=== PATIENT | male | born 1960 | race Caucasian/White ===

== ENCOUNTER 2017-02-05 09:15 | Inpatient (IN) | payer OTHER ==
[~2017-02-05] VITALS: Ht 175.3 cm; Wt 67.6 kg
[2017-02-05 18:52] VITALS: PULSE 70
[2017-02-05 20:04] VITALS: BP 132/74; RESP 17
[2017-02-05 20:10] VITALS: PULSE 73
--- NOTE | 2017-02-05 20:29 | HP ---
Date/Time of Note Date/Time of Note DATE: 02/05/17 TIME: 19:33 Assessment/Plan VTE Prophylaxis VTE Prophylaxis Intervention: contraindicated Assessment/Plan Assessment/Plan - Hepatorenal syndrome -Per nephrology and GI -Alcoholic liver Cirrhosis with transaminitis -GI consult-Dr. Zelaya notified - Hyponatremia - 1/2 NS AT 50 cc per Hr - Hyperkalemia - sp Kayexalate at [place] - Stat K level- fu - am Labs -Bilateral lower extremity pain -We will do a Doppler ultrasound to rule out any DVTs, results to follow-up - Jaundice - Acute Renal Failure-monitor labs - nephrology consult-Dr. Hilton Robles notified - Hemophilia - Thrombocytopenia-no obvious bleeding noted - Hematology consult- will call tomorrow -We will get PT PTT INR -Coagulopathy secondary to thrombocytopenia - Hypertension - Ascites- tapped almost 4 weeks ago , 1.6 L removed per patient. -Discussed with Dr. Robles, plan for ultrasound-guided paracentesis tomorrow -pain meds -Cachexia -Dietary consult Patient is not allergic to Spironolactone, he stated that his doctor does want him to take this medication so he is not allergic to any medicine. Further recommendations based on patient's clinical course . Plan of care Dw Dr James/staff, patient. Total time spent on history taking, chart review, talking to the patient, discussing with staff, going over orders, getting consult as well as a 45 minutes HPI/ROS Admit Date/Time Admit Date/Time February 05, 2017 at 18:37 Hx of Present Illness This is a 56-year-old male patient who was transferred from [place] with 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 Patient has a history of alcoholic liver cirrhosis, substance abuse, former smoker, alcoholism, hemophilia, apicitis was admitted to [facility] under Dr. James. Patient is admitted with hepatorenal syndrome-nephrology and GI consults are done. We will do the med recon once the medication information is entered. During physical exam patient was standing next to the bed, poor balance and patient was instructed to go back to bed no fall or injury noted. We will get physical evaluation for the patient to be on the safe side patient denies any chest pain, shortness of breath, dizziness, palpitations, headache, fever, chills. Complaint of abdominal pain, nausea, denies any diarrhea. Denies any bleeding from any orifices. During admission patient has hyponatremia, hyperkalemia-we will dose stat labs, IV fluids as necessary. Patient denies any trauma, traveling outside the country, contact with sick. Patient is cooperative for exam. ROS Eyes: no complaints ENT: no complaints Respiratory: no complaints Cardiovascular: no complaints Gastrointestinal: diarrhea, nausea, pain Genitourinary: no complaints Musculoskeletal: other (Bilateral lower extremity weakness) Skin: bruising Neurologic: no complaints Lymphatic: no complaints Psychological: nl mood/affect Immunologic: no complaints PMH/Family/Social Past Medical History Liver cirrhosis, hypertension, jaundice, hemophilia, ascites, migraine headaches , severe alcohol use disorder Medical History: hypertension, renal disease, other Past Surgical History Past Surgical Hx: appendectomy Family History Significant Family History: diabetes, other (Alcoholism) Social History Alcohol Use: other (Alcoholism) Smoking Status: Former smoker Drug Use: other (History of substance use) Exam/Review of Systems Vital Signs Vitals Vital Signs Date Time Temp Pulse Resp B/P Pulse Ox O2 Delivery O2 Flow Rate FiO2 02/05/17 18:52 70 Exam Constitutional: alert, oriented, well developed Psych: no complaints Head: normocephalic Eyes: icteric ENMT: nl external ears & nose Neck: non-tender Respiratory: clear to auscultation Cardiovascular: nl pulses Gastrointestinal: distended, other (Per patient he has apicitis, 1.6 L removed 4 weeks ago), soft Musculoskeletal: nl extremities to inspection Extremities: normal pulses Neurological: nl mental status, nl speech Skin: other (Bruises noted on upper and lower bilateral extremities) Lymph: nontender DAFEN LECHUGA February 05, 2017 19:49
[2017-02-05 21:22] LABS: INR 2.72; PROTIME 29.2 Sec (12.2-14.2); PT RATIO 2.3
[2017-02-05 21:23] LABS: PARTIAL THROMBOPLASTIN TIME 50.3 Sec (25.0-35.0)
--- NOTE | 2017-02-05 21:32 | RADRPT ---
PROCEDURE: US DVT. CLINICAL INDICATION: Upper extremity pain. TECHNIQUE: Multiple longitudinal and transverse images of the the bilateral upper extremity veins were obtained with guevara scale and color Doppler imaging. 2D grayscale measurements with compression , color Doppler flow, and augmentation was performed. COMPARISON: No prior studies are available for comparison. FINDINGS: The bilateral jugular vein, subclavian vein, axillary vein, and brachial veins are all normally comp ressible throughout. Color flow demonstrates normal filling of the vessel. Normal waveforms are vi sualized and there is normal response to augmentation. The left cephalic, bilateral basilic and rad ial veins are visualized and appear patent. IMPRESSION: 1. No evidence of a deep vein thrombosis involving either upper extremity. RPTAT:AACC Physician Claudia Date Time Electronically viewed and signed by Physician Claudia on 02/05/2017 21:32 /
--- NOTE | 2017-02-05 21:33 | RADRPT ---
PROCEDURE: US DVT. CLINICAL INDICATION: Bilateral lower extremity pain. TECHNIQUE: Multiple longitudinal and transverse images of the bilateral lower extremity veins were obtained with guevara scale and color Doppler imaging. 2D grayscale measurements with compression, co nani Doppler flow, and augmentation was performed. The calf veins were interrogated as well. COMPARISON: No prior studies are available for comparison. FINDINGS: The bilateral common femoral, superficial femoral and popliteal veins are normally compressible thro ughout. Color flow demonstrates normal filling of the vessel. Normal waveforms are visualized and there is normal response to augmentation. IMPRESSION: 1. No evidence of a deep vein thrombosis involving either lower extremity. RPTAT: AACC Physician Claudia Date Time Electronically viewed and signed by Physician Claudia on 02/05/2017 21:33 /
[2017-02-05] MEDS: SOD CHLORIDE 0.45% 1,000 ML IV SCH (23:00)
--- NOTE | 2017-02-05 23:02 | RADRPT ---
PROCEDURE: Renal US. CLINICAL INDICATION: Flank pain. TECHNIQUE: Multiple sonographic images of the kidneys and urinary bladder were obtained. The imag es were reviewed on a PACS workstation. COMPARISON: No prior studies are available for comparison. FINDINGS: The right kidney measures 10.5 x 5.8 x 6.1 cm. The left kidney measures 11.8 x 5.7 x 4.7 cm. There is no renal mass. There is no hydronephrosis. There is no renal calculus. Renal parenchymal thickness is normal bilaterally. Echogenicity is normal bilaterally. The perirenal regions are normal with no fluid collection or mass. The urinary bladder is unremarkable. There is mild ascites. IMPRESSION: 1. Unremarkable renal ultrasound. 2. Mild ascites. RPTAT: QQ .Maurisio Nieves MD, Date Time Electronically viewed and signed by .Maurisio Nieves MD, on 02/05/2017 23:01 .R/
[2017-02-06] VITALS (12 sets, daily range): BP systolic 98–134; BP diastolic 51–75; PULSE 75–97; RESP 16–18; Ht 175.3 cm; Wt 67.6 kg
[2017-02-06] MEDS ORDERED: LACTULOSE 30ML CUP PO PRN
[2017-02-06] MEDS: PIPER-TAZO 3.375 GM IV (PMX) 100 ML IVPB SCH ×4 (06:00→21:48)
[2017-02-06] MEDS: PANTOPRAZOLE (EC) 40 MG TAB PO SCH (06:34)
[2017-02-06] MEDS: FUROSEMIDE 20 MG TAB PO SCH (06:34)
[2017-02-06 08:06] LABS: CHOLESTEROL < 50 mg/dl (100-200)
[2017-02-06 08:28] LABS: HDL CHOLESTEROL 9 mg/dl (28-71); PHOSPHORUS 3.8 mg/dl (2.5-4.9); TRIGLYCERIDES 36 mg/dl (0-149)
[2017-02-06 08:38] LABS: IRON 123 ug/dl (35-150)
[2017-02-06 08:47] LABS: TOTAL IRON BINDING CAPACITY 133 ug/dl (241-421)
[2017-02-06] MEDS ORDERED: TRIMETHOPRIM/SULFAMETHOX (DS) TAB PO SCH (09:00)
[2017-02-06] MEDS: THIAMINE 100 MG TAB PO SCH (09:23)
[2017-02-06] MEDS: RIFAXIMIN 550 MG TAB PO SCH ×2 (09:23→21:48)
[2017-02-06] MEDS: MULTIVITAMINS THERAPEUTIC TAB PO SCH (09:23)
[2017-02-06] MEDS: FOLIC ACID 1 MG TAB PO SCH (09:23)
[2017-02-06 10:03] LABS: ALBUMIN 3.1 g/dl (3.3-4.9)
[2017-02-06 10:04] LABS: POTASSIUM 5.5 mmol/L (3.5-5.1)
[2017-02-06 10:06] LABS: ALBUMIN/GLOBULIN RATIO 0.55; BILIRUBIN,DIRECT 6.8 mg/dl (0.00-0.20); BILIRUBIN,INDIRECT 3.5 mg/dl (0-1.1); BILIRUBIN,TOTAL 10.3 mg/dl (0.2-1.3); CREATININE 1.42 mg/dl (0.61-1.24); TOTAL PROTEIN 8.7 g/dl (6.1-8.1)
[2017-02-06 10:07] LABS: CALCIUM 9.7 mg/dl (8.4-10.2)
[2017-02-06] MEDS: morphine 2 MG INJ IV PRN ×2 (11:45→21:48)
[2017-02-06 13:35] LABS: ADD SCAN DIFF NO
--- NOTE | 2017-02-06 13:41 | CONS ---
Date/Time of Note Date/Time of Note DATE: 02/06/17 TIME: 13:33 Assessment/Plan Assessment/Plan Chief Complaint/Hosp Course The patient is a 56-year-old male patient with a history of alcoholic liver cirrhosis, hemophilia, admitted with hepatorenal syndrome-nephrology. No active bleeding. Hematology consulted due to history of hemophilia and thrombocytopenia. # Thrombocytopenia, likely related to alcoholic liver cirrhosis. 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 - patient noted to have prolonged INR and PTT but also has liver disease - no evidence of bleeding at this time and no intervention required; patient states he has never required factor infusions, likely mild hemophilia - will obtain records from [facility] - will check Factor IX levels and mixing studies # Macrocytic anemia, MCV 101.6, Hgb 8.5 - labs pending from today - will check iron panel, ferritin, B12, folate, TSH, methylmalonic acid, homocysteine, LDH, retic count and haptoglobin (though likely low due to liver disease) Problems: Consultation Date/Type/Reason Admit Date/Time February 05, 2017 at 18:37 Date of Consultation: February 06, 2017 Type of Consultation: Hematology Reason for Consultation History of hemophilia, thrombocytopenia Hx of Present Illness 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 Patient has a history of alcoholic liver cirrhosis, substance abuse, former smoker, alcoholism, hemophilia. Patient is admitted with hepatorenal syndrome-nephrology. Denies any bleeding from any orifices. The patient states that he last drank 40 days ago, but prior to that, drank 8 40 ounce beers per day but was still functional. He has been known to have low blood counts due to cirrhosis but states that he was told his blood counts have improved. 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 He denies any bleeding other than requiring 4-6 hours to clot after cutting himself. He denies joint bleeding. He states that his mother had a bleeding tendency but was never diagnosed with a blood disorder as she was a "mess." The patient had an appendectomy 3.5 years ago without massive bleeding complications to his knowledge. He never had epistaxis except due to trauma while playing football. He has never received factor infusions. Eyes: no complaints ENT: no complaints Respiratory: no complaints Cardiovascular: no complaints Gastrointestinal: diarrhea, nausea, pain Genitourinary: no complaints Musculoskeletal: other (Bilateral lower extremity weakness) Skin: bruising Neurologic: no complaints Lymphatic: no complaints Psychological: no complaints Immunologic: no complaints Past Medical History Liver cirrhosis, hypertension, jaundice, hemophilia, ascites, migraine headaches , severe alcohol use disorder Medical History: hypertension, renal disease, other Past Surgical History Past Surgical Hx: appendectomy Family History Significant Family History: diabetes, other (Alcoholism) Social History Alcohol Use: other (Alcoholism) Smoking Status: Former smoker, smoked for 7 years x 2 ppd, quit in 1984 Drug Use: other (History of substance use, marijuana in past) Medical History: hypertension, renal disease, other Past Surgical History Past Surgical Hx: appendectomy Social History Alcohol Use: other (Alcoholism) Smoking Status: Former smoker Drug Use: other (History of substance use) Exam/Review of Systems Vital Signs Vitals Vital Signs Date Time Temp Pulse Resp B/P Pulse Ox O2 Delivery O2 Flow Rate FiO2 02/06/17 12:06 75 02/06/17 11:55 97.7 18 122/75 100 Intake and Output 02/05/17 02/05/17 02/06/17 15:00 23:00 07:00 Intake Total 350 ml Balance 350 ml Exam Constitutional: alert, oriented, well developed, jaunduced Head: normocephalic Eyes: icteric ENMT: nl external ears & nose Neck: non-tender Respiratory: clear to auscultation Cardiovascular: nl pulses Gastrointestinal: distended, ascites Musculoskeletal: nl extremities to inspection Extremities: normal pulses, bruises Neurological: nl mental status, nl speech Results Result Diagram: 02/06/17 0500 Results 24 hrs Laboratory Tests Test 02/05/17 21:00 02/06/17 05:00 02/06/17 05:46 02/06/17 06:54 Prothrombin Time 29.2 H Prothrombin Time Ratio 2.3 INR International Normalized Ratio 2.72 Activated Partial Thromboplast Time 50.3 H Ammonia 36 H Sodium Level 129 L Potassium Level 5.5 H Chloride Level 103 Carbon Dioxide Level 14 L Anion Gap 18 H Blood Urea Nitrogen 29 H Creatinine 1.42 H Glucose Level 88 Calcium Level 9.7 Total Bilirubin 10.3 H Direct Bilirubin 6.80 H Indirect Bilirubin 3.5 H Aspartate Amino Transf (AST/SGOT) 120 H Alanine Aminotransferase (ALT/SGPT) 58 Alkaline Phosphatase 231 H Total Protein 8.7 H Albumin 3.1 L Globulin 5.60 H Albumin/Globulin Ratio 0.55 Iron Level 123 Total Iron Binding Capacity 133 L Percent Iron Saturation 92 H Hemoglobin A1c Phosphorus Level 3.8 Magnesium Level 2.0 Triglycerides Level 36 Cholesterol Level < 50 L LDL Cholesterol, Calculated HDL Cholesterol 9 L Cholesterol/HDL Ratio Lipase 644 H Medications Medications Current Medications Sodium Chloride 1,000 ml @ 50 mls/hr Q20H IV Last administered on 02/05/17 23 :00; Admin Dose 50 MLS/HR; Start 02/05/17 at 20:00 Piperacillin Sod/ Tazobactam Sod (Zosyn 3.375gm/ 100 ml (Pmx)) 100 ml @ 200 mls /hr Q8 IVPB Last administered on 02/06/17 00:00; Admin Dose 200 MLS/HR; Start 02/05/17 at 22:00 Multivitamins Therapeutic (Theragran) 1 tab DAILY PO Last administered on 09:23; Admin Dose 1 TAB; Start 02/06/17 at 09:00 Thiamine HCl (Vitamin B1) 100 mg DAILY PO Last administered on 02/06/17 09:23 ; Admin Dose 100 MG; Start 02/06/17 at 09:00 Furosemide (Lasix) 10 mg DAILY@06 PO Last administered on 02/06/17 06:34; Admin Dose 10 MG; Start 02/06/17 at 06:00 Lactulose (Enulose) 20 gm Q4 PRN PO CONSTIPATION; Start 02/06/17 at 00:00 Pantoprazole (Protonix Tab) 40 mg DAILY@06 PO Last administered on 02/06/17 06 :34; Admin Dose 40 MG; Start 02/06/17 at 06:00 Rifaximin (Xifaxan) 550 mg BID PO Last administered on 02/06/17 09:23; Admin Dose 550 MG; Start 02/06/17 at 09:00 Trimethoprim/ Sulfamethoxazole (Bactrim (Ds)) 1 tab Q12 PO Last administered on 02/06/17 09:23; Admin Dose 1 TAB; Start 02/06/17 at 09:00 Folic Acid (Folic Acid) 1 mg DAILY PO Last administered on 02/06/17 09:23; Admin Dose 1 MG; Start 02/06/17 at 09:00 Aripiprazole (Abilify) 1 mg HS PO ; Start 02/06/17 at 21:00 Morphine Sulfate (morphine) 2 mg Q3H PRN IV PAIN Last administered on 11:45; Admin Dose 2 MG; Start 02/06/17 at 01:00 ABRAM HINDS MD February 06, 2017 13:41
[2017-02-06 13:45] LABS: ABNORMAL IP MESSAGE 1; HEMATOCRIT 22.4 % (42.0-52.0); HEMOGLOBIN 7.5 g/dl (14.0-18.0); MEAN CORPUSCULAR HEMOGLOBIN 34.1 pg (29.0-33.0); MEAN CORPUSCULAR HGB CONC 33.5 g/dl (32.0-37.0); MEAN CORPUSCULAR VOLUME 101.8 fl (82.0-101.0); MEAN PLATELET VOLUME 11.6 fl (7.4-10.4); PLATELET COUNT 64 10^3/UL (140-415); RED CELL DISTRIBUTION WIDTH 15.3 % (11.5-14.5); WHITE BLOOD COUNT 10.1 10^3/ul (4.8-10.8)
[2017-02-06 13:52] LABS: ALBUMIN 3.3 g/dl (3.3-4.9)
[2017-02-06 13:55] LABS: BILIRUBIN,DIRECT 7.3 mg/dl (0.00-0.20); BILIRUBIN,INDIRECT 3.7 mg/dl (0-1.1); TOTAL PROTEIN 8.8 g/dl (6.1-8.1)
[2017-02-06 13:58] LABS: LACTIC ACID 2.1 mmol/L (0.5-2.2)
[2017-02-06 14:16] LABS: IRON 115 ug/dl (35-150)
[2017-02-06 14:25] LABS: EOSINOPHILS # 0.1 10^3/ul (0.0-0.5); LYMPHOCYTES # 0.5 10^3/ul (0.8-2.9); NEUTROPHIL # 8.5 10^3/ul (1.6-7.5); PLATELET ESTIMATE PLT APPEAR DECREASED
[2017-02-06 14:26] LABS: TOTAL IRON BINDING CAPACITY 138 ug/dl (241-421)
[2017-02-06 14:54] LABS: PHOSPHORUS 3.7 mg/dl (2.5-4.9); URIC ACID 4.8 mg/dl (3.1-7.9)
[2017-02-06 14:55] LABS: MAGNESIUM 1.9 mg/dl (1.7-2.5)
[2017-02-06] MEDS ORDERED: NA POLYST SULFON 15 GM/60 ML BTL PO ONE (15:30)
[2017-02-06] MEDS: SOD CHLORIDE 0.45% 1,000 ML IV SCH (16:00)
--- NOTE | 2017-02-06 17:41 | CONS ---
DATE OF ADMISSION: 02/05/2017 DATE OF CONSULTATION: 02/06/2017 TYPE OF CONSULTATION: Nephrology. REFERRING PHYSICIAN: Dr. Grant REASON FOR CONSULTATION: Hyponatremia, sodium of 129, severe metabolic acidosis with a bicarbonate of 14, acute kidney injury, creatinine 1.42. HISTORY OF PRESENT ILLNESS: This is a 56-year-old male with a past medical history of appendectomy, history of alcoholic liver cirrhosis, bilateral lower extremity neuropathy, history of coagulopathy and thrombocytopenia from liver cirrhosis. The patient presented with abdominal pain, distention a nd shortness of breath. He gives a history of ALLERGIES TO ____ LOSARTAN. He said his doctor's marino s not want him to take these medications and the patient was admitted by Dr. Grant and nephrology was consulted for acute kidney injury with a creatinine of 1.42, sodium of 129. The patient also h ad a mild transaminitis with a total bilirubin of 10.3. Oncology has been consulted for thrombocytop enia and other abnormalities. currently his potassium was 5.5, bicarbonate was 14, today creatinine 1.42 and renal has been consulted for further workup. REVIEW OF SYSTEMS: As per HPI. PAST MEDICAL HISTORY: 1. History of liver cirrhosis, thrombocytopenia and coagulopathy. 2. History of recurrent symptomatic ascites. The last paracentesis was done approximately 4 weeks ago 1.6 liter of fluid was removed as per the patient. PAST SURGICAL HISTORY: History of appendectomy in 2013. SOCIAL HISTORY: No smoking, alcohol or recreational drug use. FAMILY HISTORY: Noncontributory. PHYSICAL EXAMINATION: VITAL SIGNS: Temperature 97.7, heart rate 83, respiration 18, blood pressure 122/75, saturation 100 % on room air. GENERAL: Awake, alert, in moderate distress due to the pain and abdominal distention. HEENT: Mild yellow sclerae. Pupils equal, round, reactive to light and accommodation. Extraocular muscles are intact. NECK: Supple, no JVD, no lymphadenopathy. LUNGS: Decreased breath sounds at both lung bases. HEART: S1, S2, tachycardia, no murmur. ABDOMEN: Soft, distended. Ascites present. Fluid was present. EXTREMITIES: 1 to 2+ pitting edema. NEUROLOGICAL: Nonfocal, intact. PSYCHIATRIC: Appropriate affect and mood. LABORATORY DATA/DIAGNOSTIC IMAGIN. Sodium 129, potassium 5.5, chloride 103, bicarbonate 14, BUN 29, creatinine 1.4, glucose 88, suraj cium 9.7, total bilirubin 10.3, slightly elevated liver enzymes, albumin 3.1. PT 29.2, INR 2.7, PTT 50.3. 2. WBC 10.1, hemoglobin 7.5, platelet count 64. 3. Renal ultrasound has been done which is unremarkable, mild ascites. Kidney size is around 10.5 to 11.8. IMPRESSION: This is a 56-year-old male who presented with symptomatic ascites, hyponatremia and dirk al has been consulted. 1. Hyponatremia likely secondary to liver cirrhosis. 2. Rule out hepatorenal syndrome versus prerenal azotemia. 3. Acute kidney injury, likely secondary to prerenal azotemia in the setting of decompensated liver cirrhosis. 4. 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 5. History of recurrent ascites, status post last paracentesis done 3 weeks ago, 1.6 liters of flui d was removed. 6. Acute hyperkalemia, possibly secondary to Bactrim. Thank you, Dr. Grant, for this consultation. [facility] PLAN: 1. He will likely need a paracentesis, but the renal ultrasound shows only mild ascites, so I will continue to monitor the patient. 2. No spironolactone due to his hyperkalemia. Potassium is 5.5, I will start the patient on a ____ for his metabolic acidosis and also start him on Lasix 40 mg p.o. daily. 3. Discontinue the Bactrim due to the acute hyperkalemia and acute kidney injury. 4. Renal ultrasound shows normal size kidneys consistent with normal echogenicity, no hydronephrosi s, but it only showed mild ascites. Thank you, Dr. Grant, for this consultation. I will continue to follow this patient along with y amanda. Dictated By: ELLIOT PARRA MD, KP/MANJINDER Conf#: [id number] DID#: [id number] CC: CARL GRANT MD;*EndCC*
--- NOTE | 2017-02-06 20:45 | CONS ---
DATE OF ADMISSION: 02/05/2017 DATE OF CONSULTATION: TYPE OF CONSULTATION: Gastroenterology. REFERRING PHYSICIAN: Dr. Carl Grant REASON FOR CONSULTATION: Jaundice. HISTORY OF PRESENT ILLNESS: The patient is a 56-year-old male with cirrhosis of liver from alcohol abuse who went to the emergency room at [place] complaining of vomiting and nausea and also weakness and dizziness. The patient was evaluated at [facility], found to have alcoholic cirrhosis with bilirubi n of 10, and hepatorenal syndrome and, for the insurance purpose, was transferred to this facility f or further management. The patient has no abdominal pain now. No nausea, no vomiting. He complain s of pain in the left arm and wants more medication. PAST MEDICAL HISTORY: History of hypertension, migraine, renal calculus, alcoholic cirrhosis, throm bocytopenia, cholelithiasis, jaundice, polysubstance dependence in remission, history of smoking als o. Spontaneous bacterial peritonitis, hypertension. PHYSICAL EXAMINATION: GENERAL: Alert, awake. He has ascites. CARDIOVASCULAR: No murmur, gallop, or click. LUNGS: Clear. ABDOMEN: Ascites. EXTREMITIES: No edema. CENTRAL NERVOUS SYSTEM: Grossly within normal limits. LABORATORY DATA: All of his labs reviewed. His bilirubin is high 11. Hematocrit is 22.4, platelet count is 64. INR is very high, 2.72. Ammonia was mildly elevated to 52. IMPRESSION: 1. Decompensated cirrhosis of liver. 2. Alcoholic cirrhosis. 3. Ascites. 4. Renal failure, rule out hepatorenal. 5. History of polysubstance dependence in the past, in admission. 6. Anemia. 7. Thrombocytopenia. 8. Cholelithiasis. 9. Coagulopathy. PLAN: To get an ultrasound of the abdomen to make sure there is no dilatation of the biliary system . The patient may need blood transfusion. We will monitor him for GI bleeding. Vitamin K to corre ct the coagulopathy. His prognosis remains guarded. The patient should be evaluated for liver prather splant at tertiary care facility. Dictated By: IGNACIA NGUYEN/NTS Conf#: [id number] DID#: [id number] CC: CARL GRANT MD; IGNACIA HERR MD;*EndCC*
[2017-02-06] MEDS: ARIPIPRAZOLE 2 MG TAB PO SCH (21:00)
[2017-02-06] MEDS: CITRIC ACID/SODIUM CITRATE 15 ML CUP PO SCH (21:48)
[2017-02-07] VITALS (12 sets, daily range): BP systolic 96–113; BP diastolic 57–65; PULSE 75–90; RESP 18–19
[2017-02-07 03:34] LABS: PROTEIN/CREAT RATIO 0.21 RATIO
[2017-02-07] MEDS: PIPER-TAZO 3.375 GM IV (PMX) 100 ML IVPB SCH ×3 (06:12→22:00)
[2017-02-07] MEDS: FUROSEMIDE 20 MG TAB PO SCH (06:13)
[2017-02-07] MEDS: PANTOPRAZOLE (EC) 40 MG TAB PO SCH (06:13)
[2017-02-07] MEDS: SOD CHLORIDE 0.45% 1,000 ML IV SCH (06:14)
[2017-02-07 08:05] LABS: ADD SCAN DIFF NO
[2017-02-07 08:10] LABS: HAAIG REFLEX REFLEX FILED
[2017-02-07 08:20] LABS: RETICULOCYTE COUNT % 5.1 % (0.5-1.5)
[2017-02-07 08:37] LABS: PLATELET COUNT 53 10^3/UL (140-415)
[2017-02-07 08:39] LABS: IRON 109 ug/dl (35-150)
[2017-02-07 08:40] LABS: LACTATE DEHYDROGENASE 668 IU/L (313-618)
[2017-02-07 08:46] LABS: POTASSIUM 4.2 mmol/L (3.5-5.1)
[2017-02-07 08:48] LABS: TOTAL IRON BINDING CAPACITY 125 ug/dl (241-421)
[2017-02-07 08:49] LABS: CALCIUM 8.7 mg/dl (8.4-10.2); CREATININE 1.36 mg/dl (0.61-1.24)
[2017-02-07 08:50] LABS: INR 3.75; PROTIME 37.7 Sec (12.2-14.2); PT RATIO 2.9
[2017-02-07 08:51] LABS: PARTIAL THROMBOPLASTIN TIME 53.4 Sec (25.0-35.0); THROMBIN TIME 22.2 SEC (13.8-19.1)
[2017-02-07 08:54] LABS: D-DIMER 3528.13 ng/ml (<460)
[2017-02-07] MEDS: FOLIC ACID 1 MG TAB PO SCH (09:00)
[2017-02-07] MEDS: THIAMINE 100 MG TAB PO SCH (09:00)
[2017-02-07] MEDS: CITRIC ACID/SODIUM CITRATE 15 ML CUP PO SCH ×3 (09:00→21:29)
[2017-02-07] MEDS: MULTIVITAMINS THERAPEUTIC TAB PO SCH (09:00)
[2017-02-07] MEDS: RIFAXIMIN 550 MG TAB PO SCH ×2 (09:00→21:29)
--- NOTE | 2017-02-07 09:26 | RADRPT ---
PROCEDURE: Abdominal Ultrasound (right upper quadrant). CLINICAL INDICATION: Choledocholithiasis. TECHNIQUE: Multiple real-time longitudinal and transverse images of the right upper quadrant of th e abdomen were acquired utilizing a curved array transducer. Images were reviewed on a high-resoluti on PACS workstation. COMPARISON: None FINDINGS: The liver is heterogeneous in echotexture with suggestion of liver surface nodularity. No focal ma sses are identified. There is mild extrahepatic ductal dilatation. The common bile duct measures 6 .5 mm in diameter. Gallstones are identified within the distended gallbladder. There is mild gallbl adder wall thickening. The visualized portions of the pancreas are unremarkable with obscuration of the tail of the pancrea s. There is small volume ascites. There is no evidence of right hydronephrosis or renal calcification. The right kidney measures 11.8 cm in length. The visualized portions of the aorta and inferior vena cava are within normal limits. IMPRESSION: 1. Coarsened hepatic echotexture and suggested liver surface nodularity. Recommend correlation with hepatic cirrhosis. 2. Gallstones within the distended gallbladder and mild gallbladder wall thickening. 3. Mild common bile duct dilatation. Recommend correlation with serum bilirubin. Consider ERCP or MRCP as clinically indicated. RPTAT: KK .Ed Suresh MD, Date Time Electronically viewed and signed by .Ed Suresh MD, MD on 02/07/2017 09:25 .B/
[2017-02-07 09:29] LABS: RED BLOOD COUNT 1.91 10^6/ul (4.70-6.10); WHITE BLOOD COUNT 9.3 10^3/ul (4.8-10.8)
[2017-02-07 09:30] LABS: HEMATOCRIT 18.9 % (42.0-52.0); HEMOGLOBIN 6.5 g/dl (14.0-18.0)
[2017-02-07 09:31] LABS: MEAN CORPUSCULAR HGB CONC 34.4 g/dl (32.0-37.0); MEAN PLATELET VOLUME 11.3 fl (7.4-10.4); PLATELET COUNT 50 10^3/UL (140-440); RED CELL DISTRIBUTION WIDTH 14.6 % (11.5-14.5)
[2017-02-07 09:32] LABS: HEPATITIS B CORE ANTIBODY NEGATIVE (NEGATIVE)
[2017-02-07 09:48] LABS: FOLATE 15.6 ng/ml (2.8-20.0)
[2017-02-07 10:39] LABS: ADD SCAN DIFF NO
--- NOTE | 2017-02-07 10:59 | CONS ---
Date/Time of Note Date/Time of Note DATE: 02/07/17 TIME: 10:58 Assessment/Plan Assessment/Plan Chief Complaint/Hosp Course The patient is a 56-year-old male patient with a history of alcoholic liver cirrhosis, hemophilia, admitted with hepatorenal syndrome-nephrology. No active bleeding. Hematology consulted due to history of hemophilia and thrombocytopenia. # Thrombocytopenia, likely related to alcoholic liver cirrhosis and possible HIV infection - platelet count 79 at [facility], today 50K. Continue to monitor, no evidence of bleeding - Transfuse < 10, < 50 if bleeding, otherwise monitor - HIV screen positive, patient denies as states that he was tested 30 days ago and was negative, will repeat HIV screen and HIV RNA and consider ID consult if repeat test is positive - Hepatitis panel negative, unlikely DIC as prolongation of caogs and low fibrinogen likely related to liver disease. No need to give cryoprecipitate unless patient bleeding. - Abdominal US showed 1. Coarsened hepatic echotexture and suggested liver surface nodularity and mild common bile duct dilatation. 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 - patient noted to have prolonged INR and PTT but also has liver disease - no evidence of bleeding at this time and no intervention required; patient states he has never required factor infusions, likely mild hemophilia if at all , query diagnosis given even if found to have low Factor IX levels may be due to liver disease as made in the liver - will obtain records from [facility] - pending Factor IX level # Macrocytic anemia, MCV 101.6, Hgb 8.5 at [facility] - Hgb today 6.5 with MCV 99.0, will give 2 units pRBCs - iron panel with Fe 109, TIBC low at 125, %87, ferritin 1250 consistent with anemia of chronic inflammation, B12/folate/TSH SNL, pending methylmalonic acid and homocysteine; LDH elevated, retic count inappropriately low; pending haptoglobin (though likely low due to liver disease) Problems: Consultation Date/Type/Reason Admit Date/Time February 05, 2017 at 18:37 Initial Consult Date 02/06/17 Type of Consultation: Hematology 24 HR Interval Summary Free Text/Dictation Patient has no complaints today. Exam/Review of Systems Vital Signs Vitals Vital Signs Date Time Temp Pulse Resp B/P Pulse Ox O2 Delivery O2 Flow Rate FiO2 02/07/17 08:21 90 02/07/17 08:17 97.6 18 96/63 100 Intake and Output 02/06/17 02/06/17 02/07/17 15:00 23:00 07:00 Intake Total 1700 ml 1400 ml Balance 1700 ml 1400 ml Exam Constitutional: alert, oriented, well developed, jaunduced Head: normocephalic Eyes: icteric ENMT: nl external ears & nose Neck: non-tender Respiratory: clear to auscultation Cardiovascular: nl pulses Gastrointestinal: distended, ascites Musculoskeletal: nl extremities to inspection Extremities: normal pulses, bruises Neurological: nl mental status, nl speech Results Result Diagram: 02/07/17 0703 02/07/17 0703 Results 24 hrs Laboratory Tests Test 02/06/17 13:09 02/07/17 03:10 02/07/17 07:03 White Blood Count 10.1 9.3 Red Blood Count 2.20 L 1.91 L Hemoglobin 7.5 L 6.5 *L Hematocrit 22.4 L 18.9 L Mean Corpuscular Volume 101.8 H 99.0 Mean Corpuscular Hemoglobin 34.1 H 34.0 H Mean Corpuscular Hemoglobin Concent 33.5 34.4 Red Cell Distribution Width 15.3 H 14.6 H Platelet Count 64 L 53 L Mean Platelet Volume 11.6 H 11.3 H Neutrophils % 84.0 H Lymphocytes % 5.0 L Monocytes % 10.0 Eosinophils % 1.0 Neutrophils # 8.5 H Lymphocytes # 0.5 L Monocytes # 1.0 H Eosinophils # 0.1 Platelet Estimate PLT APPEAR DECREASED Clumped Platelets Lactic Acid Level 2.1 Uric Acid 4.8 Phosphorus Level 3.7 Magnesium Level 1.9 Iron Level 115 109 Total Iron Binding Capacity 138 L 125 L Percent Iron Saturation 83 H 87 H Total Bilirubin 11.0 H Direct Bilirubin 7.30 H Indirect Bilirubin 3.7 H Aspartate Amino Transf (AST/SGOT) 121 H Alanine Aminotransferase (ALT/SGPT) 63 Alkaline Phosphatase 217 H Ammonia 52 H Total Protein 8.8 H Albumin 3.3 Lipase 823 H Urine Eosinophils % 0.0 Urine Random Creatinine 68.41 Urine Random Sodium 55 Urine Protein/Creatinine Ratio 0.21 Urine Total Protein 15.0 H Absolute Reticulocyte Count 0.097 Percent Reticulocyte Count 5.1 H Prothrombin Time 37.7 #H Prothrombin Time Ratio 2.9 INR International Normalized Ratio 3.75 Activated Partial Thromboplast Time 56.0 H Mix PTT Normal Plasma Immediate Thrombin Time 22.2 H Fibrinogen 93.0 L Plasma Fibrin Degradation Products Pending D-Dimer 3528.13 H D-Dimer Comment Sodium Level 127 L Potassium Level 4.2 Chloride Level 97 Carbon Dioxide Level 17 L Anion Gap 17 H Blood Urea Nitrogen 27 H Creatinine 1.36 H Glucose Level 97 Calcium Level 8.7 Ferritin 1250.0 H Lactate Dehydrogenase 668 H Vitamin B12 Level > 1000 H Folate 15.6 Thyroid Stimulating Hormone (TSH) 3.840 Hepatitis B Surface Antigen NEGATIVE Hepatitis B Core Total Antibody NEGATIVE Hepatitis C Antibody NEGATIVE HIV (1&2) Antibody REACTIVE H Medications Medications Current Medications Sodium Chloride 1,000 ml @ 50 mls/hr Q20H IV Last administered on 02/07/17 06 :14; Admin Dose 50 MLS/HR; Start 02/05/17 at 20:00 Piperacillin Sod/ Tazobactam Sod (Zosyn 3.375gm/ 100 ml (Pmx)) 100 ml @ 200 mls /hr Q8 IVPB Last administered on 02/07/17 06:12; Admin Dose 200 MLS/HR; Start 02/05/17 at 22:00 Multivitamins Therapeutic (Theragran) 1 tab DAILY PO Last administered on 09:23; Admin Dose 1 TAB; Start 02/06/17 at 09:00 Thiamine HCl (Vitamin B1) 100 mg DAILY PO Last administered on 02/06/17 09:23 ; Admin Dose 100 MG; Start 02/06/17 at 09:00 Furosemide (Lasix) 10 mg DAILY@06 PO Last administered on 02/07/17 06:13; Admin Dose 10 MG; Start 02/06/17 at 06:00 Lactulose (Enulose) 20 gm Q4 PRN PO CONSTIPATION; Start 02/06/17 at 00:00 Pantoprazole (Protonix Tab) 40 mg DAILY@06 PO Last administered on 02/07/17 06 :13; Admin Dose 40 MG; Start 02/06/17 at 06:00 Rifaximin (Xifaxan) 550 mg BID PO Last administered on 02/06/17 21:48; Admin Dose 550 MG; Start 02/06/17 at 09:00 Folic Acid (Folic Acid) 1 mg DAILY PO Last administered on 02/06/17 09:23; Admin Dose 1 MG; Start 02/06/17 at 09:00 Aripiprazole (Abilify) 1 mg HS PO ; Start 02/06/17 at 21:00 Morphine Sulfate (morphine) 2 mg Q3H PRN IV PAIN Last administered on 21:48; Admin Dose 2 MG; Start 02/06/17 at 01:00 Citric Acid/ Sodium Citrate (Bicitra) 30 ml TID PO Last administered on 21:48; Admin Dose 30 ML; Start 02/06/17 at 21:00 TOABRAM MD February 07, 2017 10:59
[2017-02-07 11:01] LABS: BASOPHIL # 0.1 10^3/ul (0.0-0.1); EOSINOPHILS # 0.2 10^3/ul (0.0-0.5); LYMPHOCYTES # 1.2 10^3/ul (0.8-2.9); MONOCYTE # 0.2 10^3/ul (0.3-0.9); NEUTROPHIL # 7.6 10^3/ul (1.6-7.5)
[2017-02-07 11:10] LABS: ABNORMAL IP MESSAGE 1; BASOPHILS % 0.4 % (0.0-2.0); EOSINOPHILS # 0.2 10^3/ul (0.0-0.5); EOSINOPHILS % 2.1 % (0.0-7.0); HEMATOCRIT 19.2 % (42.0-52.0); LYMPHOCYTES # 0.8 10^3/ul (0.8-2.9); LYMPHOCYTES % 8.8 % (15.0-51.0); MEAN CORPUSCULAR HEMOGLOBIN 35.2 pg (29.0-33.0); MEAN CORPUSCULAR HGB CONC 35.4 g/dl (32.0-37.0); MEAN CORPUSCULAR VOLUME 99.5 fl (82.0-101.0); MEAN PLATELET VOLUME 11.5 fl (7.4-10.4); NEUTROPHIL # 7.5 10^3/ul (1.6-7.5); NEUTROPHILS % 78.2 % (39.0-77.0); PLATELET COUNT 52 10^3/UL (140-415); RED BLOOD COUNT 1.93 10^6/ul (4.70-6.10); WHITE BLOOD COUNT 9.6 10^3/ul (4.8-10.8)
[2017-02-07 11:18] LABS: HEMOGLOBIN 6.8 g/dl (14.0-18.0)
[2017-02-07 11:53] LABS: FIBRIN SPLIT PRODUCT <10 ug/ml (<10)
--- NOTE | 2017-02-07 13:44 | CONS ---
Date/Time of Note Date/Time of Note DATE: 02/07/17 TIME: 13:41 Assessment/Plan Assessment/Plan Additional Assessment/Plan 1. Hyponatremia likely secondary to liver cirrhosis. 2. Rule out hepatorenal syndrome versus prerenal azotemia. 3. Acute kidney injury, likely secondary to prerenal azotemia in the setting of decompensated liver cirrhosis. 4. 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 5. History of recurrent ascites, status post last paracentesis done 3 weeks ago , 1.6 liters of fluid was removed. 6. Acute hyperkalemia, possibly secondary to Bactrim. PLAN: US of abdomen did not show ascites, Gallstones within the distended gallbladder and mild gallbladder wall thickening.mild CBD dilatation MRCP to rule out CBD stone Na dropped, d/c 1/2 NS,. will give albumin 25% 100 ml IV x 1 followed by NS at 50 cc/ hr x 2 liter then reassess HCO3 improving with bicitra will follow up Consultation Date/Type/Reason Admit Date/Time February 05, 2017 at 18:37 Initial Consult Date 02/06/17 Type of Consultation: NEPHROLOGY Reason for Consultation acute kidney injuyr, Hyponatremia, metabolic acidosis Referring Provider: CARL GRANT MD 24 HR Interval Summary Free Text/Dictation HCo3 improving, Na slightly dropped, BP stable Exam/Review of Systems Vital Signs Vitals Vital Signs Date Time Temp Pulse Resp B/P Pulse Ox O2 Delivery O2 Flow Rate FiO2 02/07/17 12:04 97.7 80 18 104/62 100 Intake and Output 02/06/17 02/06/17 02/07/17 15:00 23:00 07:00 Intake Total 1700 ml 1400 ml Balance 1700 ml 1400 ml Exam Constitutional: alert, oriented, well developed, jaunduced Head: normocephalic Eyes: icteric ENMT: nl external ears & nose Neck: non-tender Respiratory: clear to auscultation Cardiovascular: nl pulses Gastrointestinal: distended, ascites Musculoskeletal: nl extremities to inspection Extremities: normal pulses, bruises Neurological: nl mental status, nl speech Results Result Diagram: 02/07/17 0941 02/07/17 0703 Results 24 hrs Laboratory Tests Test 02/07/17 03:10 02/07/17 07:03 02/07/17 09:41 Urine Eosinophils % 0.0 Urine Random Creatinine 68.41 Urine Random Sodium 55 Urine Protein/Creatinine Ratio 0.21 Urine Total Protein 15.0 H White Blood Count 9.3 9.6 Red Blood Count 1.91 L 1.93 L Hemoglobin 6.5 *L 6.8 *L Hematocrit 18.9 L 19.2 L Mean Corpuscular Volume 99.0 99.5 Mean Corpuscular Hemoglobin 34.0 H 35.2 H Mean Corpuscular Hemoglobin Concent 34.4 35.4 Red Cell Distribution Width 14.6 H 15.0 H Platelet Count 53 L 52 L Mean Platelet Volume 11.3 H 11.5 H Neutrophils % 82.0 H 78.2 H Lymphocytes % 13.0 L 8.8 L Monocytes % 2.0 10.0 Eosinophils % 2.0 2.1 Basophils % 1.0 0.4 Neutrophils # 7.6 H 7.5 Lymphocytes # 1.2 0.8 Monocytes # 0.2 L 1.0 H Eosinophils # 0.2 0.2 Basophils # 0.1 0.0 Ovalocytes Absolute Reticulocyte Count 0.097 Percent Reticulocyte Count 5.1 H Prothrombin Time 37.7 #H Prothrombin Time Ratio 2.9 INR International Normalized Ratio 3.75 Activated Partial Thromboplast Time 56.0 H Mix PTT Normal Plasma Immediate Thrombin Time 22.2 H Fibrinogen 93.0 L Plasma Fibrin Degradation Products <10 D-Dimer 3528.13 H D-Dimer Comment Sodium Level 127 L Potassium Level 4.2 Chloride Level 97 Carbon Dioxide Level 17 L Anion Gap 17 H Blood Urea Nitrogen 27 H Creatinine 1.36 H Glucose Level 97 Calcium Level 8.7 Iron Level 109 Total Iron Binding Capacity 125 L Percent Iron Saturation 87 H Ferritin 1250.0 H Lactate Dehydrogenase 668 H Vitamin B12 Level > 1000 H Folate 15.6 Thyroid Stimulating Hormone (TSH) 3.840 Hepatitis B Surface Antigen NEGATIVE Hepatitis B Core Total Antibody NEGATIVE Hepatitis C Antibody NEGATIVE HIV (1&2) Antibody REACTIVE H Nucleated Red Blood Cells % 0.0 Nucleated Red Blood Cells # 0.0 Medications Medications Current Medications Piperacillin Sod/ Tazobactam Sod (Zosyn 3.375gm/ 100 ml (Pmx)) 100 ml @ 200 mls /hr Q8 IVPB Last administered on 02/07/17t 06:12; Admin Dose 200 MLS/HR; Start 02/05/17 at 22:00 Multivitamins Therapeutic (Theragran) 1 tab DAILY PO Last administered on 09:23; Admin Dose 1 TAB; Start 02/06/17 at 09:00 Thiamine HCl (Vitamin B1) 100 mg DAILY PO Last administered on 02/06/17 09:23 ; Admin Dose 100 MG; Start 02/06/17 at 09:00 Furosemide (Lasix) 10 mg DAILY@06 PO Last administered on 02/07/17 06:13; Admin Dose 10 MG; Start 02/06/17 at 06:00 Lactulose (Enulose) 20 gm Q4 PRN PO CONSTIPATION; Start 02/06/17 at 00:00 Pantoprazole (Protonix Tab) 40 mg DAILY@06 PO Last administered on 02/07/17 06 :13; Admin Dose 40 MG; Start 02/06/17 at 06:00 Rifaximin (Xifaxan) 550 mg BID PO Last administered on 02/06/17 21:48; Admin Dose 550 MG; Start 02/06/17 at 09:00 Folic Acid (Folic Acid) 1 mg DAILY PO Last administered on 02/06/17 09:23; Admin Dose 1 MG; Start 02/06/17 at 09:00 Aripiprazole (Abilify) 1 mg HS PO ; Start 02/06/17 at 21:00 Morphine Sulfate (morphine) 2 mg Q3H PRN IV PAIN Last administered on 21:48; Admin Dose 2 MG; Start 02/06/17 at 01:00 Citric Acid/ Sodium Citrate (Bicitra) 30 ml TID PO Last administered on 21:48; Admin Dose 30 ML; Start 02/06/17 at 21:00 ELLIOT PARRA MD February 07, 2017 13:43
[2017-02-07] MEDS: SOD CHLORIDE 0.9% 1,000 ML IV SCH (14:00)
--- NOTE | 2017-02-07 14:36 | CONS ---
Date/Time of Note Date/Time of Note DATE: 02/07/17 TIME: 14:36 Assessment/Plan Assessment/Plan Chief Complaint/Hosp Course asked to consult. will be in shortly. Problems: Consultation Date/Type/Reason Admit Date/Time February 05, 2017 at 18:37 Initial Consult Date 02/06/17 Type of Consultation: id Referring Provider: CARL GRANT MD Exam/Review of Systems Vital Signs Vitals Vital Signs Date Time Temp Pulse Resp B/P Pulse Ox O2 Delivery O2 Flow Rate FiO2 02/07/17 12:04 97.7 80 18 104/62 100 Intake and Output 02/06/17 02/06/17 02/07/17 15:00 23:00 07:00 Intake Total 1700 ml 1400 ml Balance 1700 ml 1400 ml Results Result Diagram: 02/07/17 0941 02/07/17 0703 Results 24 hrs Laboratory Tests Test 02/07/17 03:10 02/07/17 07:03 02/07/17 09:41 Urine Eosinophils % 0.0 Urine Random Creatinine 68.41 Urine Random Sodium 55 Urine Protein/Creatinine Ratio 0.21 Urine Total Protein 15.0 H White Blood Count 9.3 9.6 Red Blood Count 1.91 L 1.93 L Hemoglobin 6.5 *L 6.8 *L Hematocrit 18.9 L 19.2 L Mean Corpuscular Volume 99.0 99.5 Mean Corpuscular Hemoglobin 34.0 H 35.2 H Mean Corpuscular Hemoglobin Concent 34.4 35.4 Red Cell Distribution Width 14.6 H 15.0 H Platelet Count 53 L 52 L Mean Platelet Volume 11.3 H 11.5 H Neutrophils % 82.0 H 78.2 H Lymphocytes % 13.0 L 8.8 L Monocytes % 2.0 10.0 Eosinophils % 2.0 2.1 Basophils % 1.0 0.4 Neutrophils # 7.6 H 7.5 Lymphocytes # 1.2 0.8 Monocytes # 0.2 L 1.0 H Eosinophils # 0.2 0.2 Basophils # 0.1 0.0 Ovalocytes Absolute Reticulocyte Count 0.097 Percent Reticulocyte Count 5.1 H Prothrombin Time 37.7 #H Prothrombin Time Ratio 2.9 INR International Normalized Ratio 3.75 Activated Partial Thromboplast Time 56.0 H Mix PTT Normal Plasma Immediate Thrombin Time 22.2 H Fibrinogen 93.0 L Plasma Fibrin Degradation Products <10 D-Dimer 3528.13 H D-Dimer Comment Sodium Level 127 L Potassium Level 4.2 Chloride Level 97 Carbon Dioxide Level 17 L Anion Gap 17 H Blood Urea Nitrogen 27 H Creatinine 1.36 H Glucose Level 97 Calcium Level 8.7 Iron Level 109 Total Iron Binding Capacity 125 L Percent Iron Saturation 87 H Ferritin 1250.0 H Lactate Dehydrogenase 668 H Vitamin B12 Level > 1000 H Folate 15.6 Thyroid Stimulating Hormone (TSH) 3.840 Hepatitis B Surface Antigen NEGATIVE Hepatitis B Core Total Antibody NEGATIVE Hepatitis C Antibody NEGATIVE HIV (1&2) Antibody REACTIVE H Nucleated Red Blood Cells % 0.0 Nucleated Red Blood Cells # 0.0 Medications Medications Current Medications Piperacillin Sod/ Tazobactam Sod (Zosyn 3.375gm/ 100 ml (Pmx)) 100 ml @ 200 mls /hr Q8 IVPB Last administered on 02/07/17 06:12; Admin Dose 200 MLS/HR; Start 02/05/17 at 22:00 Multivitamins Therapeutic (Theragran) 1 tab DAILY PO Last administered on 09:23; Admin Dose 1 TAB; Start 02/06/17 at 09:00 Thiamine HCl (Vitamin B1) 100 mg DAILY PO Last administered on 02/06/17 09:23 ; Admin Dose 100 MG; Start 02/06/17 at 09:00 Furosemide (Lasix) 10 mg DAILY@06 PO Last administered on 02/07/17 06:13; Admin Dose 10 MG; Start 02/06/17 at 06:00 Lactulose (Enulose) 20 gm Q4 PRN PO CONSTIPATION; Start 02/06/17 at 00:00 Pantoprazole (Protonix Tab) 40 mg DAILY@06 PO Last administered on 02/07/17 06 :13; Admin Dose 40 MG; Start 02/06/17 at 06:00 Rifaximin (Xifaxan) 550 mg BID PO Last administered on 02/06/17 21:48; Admin Dose 550 MG; Start 02/06/17 at 09:00 Folic Acid (Folic Acid) 1 mg DAILY PO Last administered on 02/06/17 09:23; Admin Dose 1 MG; Start 02/06/17 at 09:00 Aripiprazole (Abilify) 1 mg HS PO ; Start 02/06/17 at 21:00 Morphine Sulfate (morphine) 2 mg Q3H PRN IV PAIN Last administered on 21:48; Admin Dose 2 MG; Start 02/06/17 at 01:00 Citric Acid/ Sodium Citrate 30 ml 30 ml TID PO Last administered on 02/06/17 21:48; Admin Dose 30 ML; Start 02/06/17 at 21:00 Albumin Human 100 ml @ 100 mls/hr ONCE ONCE IV ; Start 02/07/17 at 15:30; Stop 02/07/17 at 16:29 Sodium Chloride (NS) 1,000 ml @ 50 mls/hr Q20H IV ; Start 02/07/17 at 14:00; Stop 02/09/17 at 05:59 XAVI GARCES MD February 07, 2017 14:36
[2017-02-07] MEDS ORDERED: ALBUMIN HUMAN 25% 100 ML IV ONE (15:30)
--- NOTE | 2017-02-07 17:25 | CONS ---
Date/Time of Note Date/Time of Note DATE: 02/07/17 TIME: 17:24 Assessment/Plan Assessment/Plan Chief Complaint/Hosp Course Attempted to examine and interview patient; informed by nursing staff that patient has gone to nuclear. I will return to examine shortly and full note to follow. Problems: Consultation Date/Type/Reason Admit Date/Time February 05, 2017 at 18:37 Initial Consult Date 02/06/17 Type of Consultation: id Referring Provider: CARL GRANT MD Exam/Review of Systems Vital Signs Vitals Vital Signs Date Time Temp Pulse Resp B/P Pulse Ox O2 Delivery O2 Flow Rate FiO2 02/07/17 16:08 89 02/07/17 15:50 97.6 18 104/57 100 Intake and Output 02/06/17 02/06/17 02/07/17 14:59 22:59 06:59 Intake Total 1700 ml 1400 ml Balance 1700 ml 1400 ml Results Result Diagram: 02/07/17 0941 02/07/17 0703 Results 24 hrs Laboratory Tests Test 02/07/17 03:10 02/07/17 07:03 02/07/17 09:41 Urine Eosinophils % 0.0 Urine Random Creatinine 68.41 Urine Random Sodium 55 Urine Protein/Creatinine Ratio 0.21 Urine Total Protein 15.0 H White Blood Count 9.3 9.6 Red Blood Count 1.91 L 1.93 L Hemoglobin 6.5 *L 6.8 *L Hematocrit 18.9 L 19.2 L Mean Corpuscular Volume 99.0 99.5 Mean Corpuscular Hemoglobin 34.0 H 35.2 H Mean Corpuscular Hemoglobin Concent 34.4 35.4 Red Cell Distribution Width 14.6 H 15.0 H Platelet Count 53 L 52 L Mean Platelet Volume 11.3 H 11.5 H Neutrophils % 82.0 H 78.2 H Lymphocytes % 13.0 L 8.8 L Monocytes % 2.0 10.0 Eosinophils % 2.0 2.1 Basophils % 1.0 0.4 Neutrophils # 7.6 H 7.5 Lymphocytes # 1.2 0.8 Monocytes # 0.2 L 1.0 H Eosinophils # 0.2 0.2 Basophils # 0.1 0.0 Ovalocytes Absolute Reticulocyte Count 0.097 Percent Reticulocyte Count 5.1 H Prothrombin Time 37.7 #H Prothrombin Time Ratio 2.9 INR International Normalized Ratio 3.75 Activated Partial Thromboplast Time 56.0 H Mix PTT Normal Plasma Immediate Thrombin Time 22.2 H Fibrinogen 93.0 L Plasma Fibrin Degradation Products <10 D-Dimer 3528.13 H D-Dimer Comment Sodium Level 127 L Potassium Level 4.2 Chloride Level 97 Carbon Dioxide Level 17 L Anion Gap 17 H Blood Urea Nitrogen 27 H Creatinine 1.36 H Glucose Level 97 Calcium Level 8.7 Iron Level 109 Total Iron Binding Capacity 125 L Percent Iron Saturation 87 H Ferritin 1250.0 H Lactate Dehydrogenase 668 H Vitamin B12 Level > 1000 H Folate 15.6 Thyroid Stimulating Hormone (TSH) 3.840 Hepatitis B Surface Antigen NEGATIVE Hepatitis B Core Total Antibody NEGATIVE Hepatitis C Antibody NEGATIVE HIV (1&2) Antibody REACTIVE H Nucleated Red Blood Cells % 0.0 Nucleated Red Blood Cells # 0.0 Medications Medications Current Medications Piperacillin Sod/ Tazobactam Sod (Zosyn 3.375gm/ 100 ml (Pmx)) 100 ml @ 200 mls /hr Q8 IVPB Last administered on 02/07/17 14:00; Admin Dose 200 MLS/HR; Start 02/05/17 at 22:00 Multivitamins Therapeutic (Theragran) 1 tab DAILY PO Last administered on 09:23; Admin Dose 1 TAB; Start 02/06/17 at 09:00 Thiamine HCl (Vitamin B1) 100 mg DAILY PO Last administered on 02/06/17 09:23 ; Admin Dose 100 MG; Start 02/06/17 at 09:00 Furosemide (Lasix) 10 mg DAILY@06 PO Last administered on 02/07/17 06:13; Admin Dose 10 MG; Start 02/06/17 at 06:00 Lactulose (Enulose) 20 gm Q4 PRN PO CONSTIPATION; Start 02/06/17 at 00:00 Pantoprazole (Protonix Tab) 40 mg DAILY@06 PO Last administered on 02/07/17 06 :13; Admin Dose 40 MG; Start 02/06/17 at 06:00 Rifaximin (Xifaxan) 550 mg BID PO Last administered on 02/06/17 21:48; Admin Dose 550 MG; Start 02/06/17 at 09:00 Folic Acid (Folic Acid) 1 mg DAILY PO Last administered on 5/21/17at 09:23; Admin Dose 1 MG; Start 02/06/17 at 09:00 Aripiprazole (Abilify) 1 mg HS PO ; Start 02/06/17 at 21:00 Morphine Sulfate (morphine) 2 mg Q3H PRN IV PAIN Last administered on t 21:48; Admin Dose 2 MG; Start 02/06/17 at 01:00 Citric Acid/ Sodium Citrate 30 ml 30 ml TID PO Last administered on 02/06/17t 21:48; Admin Dose 30 ML; Start 02/06/17 at 21:00 Sodium Chloride (NS) 1,000 ml @ 50 mls/hr Q20H IV ; Start 02/07/17 at 14:00; Stop 02/09/17 at 05:59 XAVI GARCES MD February 07, 2017 17:25
--- NOTE | 2017-02-07 18:14 | CONS ---
Date/Time of Note Date/Time of Note DATE: 02/07/17 TIME: 18:13 Assessment/Plan Assessment/Plan Additional Assessment/Plan IMPRESSION: 1. Decompensated cirrhosis of liver. 2. Alcoholic cirrhosis. 3. Ascites. 4. Renal failure, rule out hepatorenal. 5. History of polysubstance dependence in the past, in admission. 6. Anemia. 7. Thrombocytopenia. 8. Cholelithiasis. 9. Coagulopathy. 10. Ultrasound revealed gallstone and dilated biliary system Plan Correction of hyponatremia MRCP to rule out bile duct stone or biliary obstruction Vitamin K Consultation Date/Type/Reason Admit Date/Time February 05, 2017 at 18:37 Initial Consult Date 02/06/17 Type of Consultation: id Referring Provider: CARL GRANT MD 24 HR Interval Summary Free Text/Dictation Patient complains of pain in the left elbow and wants a narcotic Exam/Review of Systems Vital Signs Vitals Vital Signs Date Time Temp Pulse Resp B/P Pulse Ox O2 Delivery O2 Flow Rate FiO2 02/07/17 16:08 89 02/07/17 15:50 97.6 18 104/57 100 Intake and Output 02/06/17 02/06/17 02/07/17 15:00 23:00 07:00 Intake Total 1700 ml 1400 ml Balance 1700 ml 1400 ml Exam Constitutional: alert, oriented, well developed Psych: nl mood/affect, no complaints Head: atraumatic, normocephalic Eyes: EOMI, PERRL, nl conjunctiva, nl lids, nl sclera ENMT: nl external ears & nose, nl lips & teeth, nl nasal mucosa & septum Neck: non-tender, supple Respiratory: clear to auscultation, normal air movement Cardiovascular: nl pulses, regular rate and rhythm Gastrointestinal: nl liver, spleen, non-tender, soft Musculoskeletal: nl extremities to inspection, nl gait and stance Extremities: normal pulses 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, nl mental status, nl speech, nl strength Skin: nl turgor, No rash or lesions Lymph: nl lymph nodes Results Result Diagram: 02/07/17 0941 02/07/17 0703 Results 24 hrs Laboratory Tests Test 02/07/17 03:10 02/07/17 07:03 02/07/17 09:41 Urine Eosinophils % 0.0 Urine Random Creatinine 68.41 Urine Random Sodium 55 Urine Protein/Creatinine Ratio 0.21 Urine Total Protein 15.0 H White Blood Count 9.3 9.6 Red Blood Count 1.91 L 1.93 L Hemoglobin 6.5 *L 6.8 *L Hematocrit 18.9 L 19.2 L Mean Corpuscular Volume 99.0 99.5 Mean Corpuscular Hemoglobin 34.0 H 35.2 H Mean Corpuscular Hemoglobin Concent 34.4 35.4 Red Cell Distribution Width 14.6 H 15.0 H Platelet Count 53 L 52 L Mean Platelet Volume 11.3 H 11.5 H Neutrophils % 82.0 H 78.2 H Lymphocytes % 13.0 L 8.8 L Monocytes % 2.0 10.0 Eosinophils % 2.0 2.1 Basophils % 1.0 0.4 Neutrophils # 7.6 H 7.5 Lymphocytes # 1.2 0.8 Monocytes # 0.2 L 1.0 H Eosinophils # 0.2 0.2 Basophils # 0.1 0.0 Ovalocytes Absolute Reticulocyte Count 0.097 Percent Reticulocyte Count 5.1 H Prothrombin Time 37.7 #H Prothrombin Time Ratio 2.9 INR International Normalized Ratio 3.75 Activated Partial Thromboplast Time 56.0 H Mix PTT Normal Plasma Immediate Thrombin Time 22.2 H Fibrinogen 93.0 L Plasma Fibrin Degradation Products <10 D-Dimer 3528.13 H D-Dimer Comment Sodium Level 127 L Potassium Level 4.2 Chloride Level 97 Carbon Dioxide Level 17 L Anion Gap 17 H Blood Urea Nitrogen 27 H Creatinine 1.36 H Glucose Level 97 Calcium Level 8.7 Iron Level 109 Total Iron Binding Capacity 125 L Percent Iron Saturation 87 H Ferritin 1250.0 H Lactate Dehydrogenase 668 H Vitamin B12 Level > 1000 H Folate 15.6 Thyroid Stimulating Hormone (TSH) 3.840 Hepatitis B Surface Antigen NEGATIVE Hepatitis B Core Total Antibody NEGATIVE Hepatitis C Antibody NEGATIVE HIV (1&2) Antibody REACTIVE H Nucleated Red Blood Cells % 0.0 Nucleated Red Blood Cells # 0.0 Medications Medications Current Medications Piperacillin Sod/ Tazobactam Sod (Zosyn 3.375gm/ 100 ml (Pmx)) 100 ml @ 200 mls /hr Q8 IVPB Last administered on 02/07/17t 14:00; Admin Dose 200 MLS/HR; Start 02/05/17 at 22:00 Multivitamins Therapeutic (Theragran) 1 tab DAILY PO Last administered on 09:23; Admin Dose 1 TAB; Start 02/06/17 at 09:00 Thiamine HCl (Vitamin B1) 100 mg DAILY PO Last administered on 02/06/17 09:23 ; Admin Dose 100 MG; Start 02/06/17 at 09:00 Furosemide (Lasix) 10 mg DAILY@06 PO Last administered on 02/07/17 06:13; Admin Dose 10 MG; Start 02/06/17 at 06:00 Lactulose (Enulose) 20 gm Q4 PRN PO CONSTIPATION; Start 02/06/17 at 00:00 Pantoprazole (Protonix Tab) 40 mg DAILY@06 PO Last administered on 02/07/17 06 :13; Admin Dose 40 MG; Start 02/06/17 at 06:00 Rifaximin (Xifaxan) 550 mg BID PO Last administered on 02/06/17 21:48; Admin Dose 550 MG; Start 02/06/17 at 09:00 Folic Acid (Folic Acid) 1 mg DAILY PO Last administered on 02/06/17 09:23; Admin Dose 1 MG; Start 02/06/17 at 09:00 Aripiprazole (Abilify) 1 mg HS PO ; Start 02/06/17 at 21:00 Morphine Sulfate (morphine) 2 mg Q3H PRN IV PAIN Last administered on 21:48; Admin Dose 2 MG; Start 02/06/17 at 01:00 Citric Acid/ Sodium Citrate 30 ml 30 ml TID PO Last administered on 02/06/17 21:48; Admin Dose 30 ML; Start 02/06/17 at 21:00 Sodium Chloride (NS) 1,000 ml @ 50 mls/hr Q20H IV Last administered on 14:00; Admin Dose 50 MLS/HR; Start 02/07/17 at 14:00; Stop 02/09/17 at 05: 59 IGNACIA HERR MD February 07, 2017 18:14
--- NOTE | 2017-02-07 18:41 | PN ---
DATE: SUBJECTIVE: Followup on patient with liver cirrhosis, ascites, and acute renal failure, cholelithia sis, anemia, and thrombocytopenia. The patient is sitting in the chair. Denies any shortness of br eath, denies any chest pain. The patient complains of intermittent nausea. Denies any emesis. Com [place] of generalized weakness that got worse over the last couple of days. The patient also appear s very jaundiced. OBJECTIVE: VITAL SIGNS: Temperature is 97.6, pulse 78, blood pressure 104/57, respiratory rate 18, oxygen satu ration 100% on room air. GENERAL: Well-developed jaundiced male. Currently is awake, alert. HEENT: Head is atraumatic, normocephalic. Jaundiced sclerae. CHEST: Lungs clear bilaterally. HEART: Normal S1, S2. No murmurs, gallops, clicks, rubs noted. ABDOMEN: Distended with positive ascites. Bowel sounds present. There is no guarding. EXTREMITIES: Mild edema, 2+. NEUROLOGIC: The patient is awake, alert, and oriented x3. LABORATORY DATA: Today CBC: White blood cells 9.6, hemoglobin 6.8, hematocrit 19.2, platelets 52. Chemistry: Sodium is 127, potassium is 4.2, chloride 97, carbon dioxide 17, anion gap 17, BUN is 2 7, creatinine 1.36, glucose 97. ASSESSMENT AND PLAN: 1. Liver cirrhosis. 2. Ascites secondary to liver cirrhosis. 3. Hepatic encephalopathy. Will continue lactulose and rifaximin. Monitor ammonia level. 4. Acute kidney injury, rule out hepatorenal syndrome. Dr. Robles is following in nephrology [facility]. 5. Human immunodeficiency virus positive status. Dr. Ryan is following in infectious disease con sultation. 6. Thrombocytopenia secondary to alcoholic liver cirrhosis and possible human immunodeficiency viru s. Dr. Cabral is following in hematology consultation. Will transfuse platelets p.r.n. for platelet co unt ____ than 10,000. 7. Microcytic anemia. The patient's hemoglobin is 6.8. Pending blood transfusion. Continue to mo nitor hemoglobin and hematocrit. 8. Coagulopathy. 9. Cholelithiasis. The patient is pending MRCP. 10. Continue Zosyn. 11. Continue Protonix for peptic ulcer disease prophylaxis. Further recommendations based on clinical course. Plan of care discussed with Dr. Grant. Dictated By: ALIVIA ALVAREZ SOLID PLASTERER for CARL GRANT MD SR/NTS Conf#: [id number] DID#: [id number]
[2017-02-07] MEDS: ARIPIPRAZOLE 2 MG TAB PO SCH (21:29)
--- NOTE | 2017-02-07 21:39 | RADRPT ---
AMENDMENT: 02/08/2017 4:12:22 PM Poornima Wen MD Multiple delayed images of the abdomen were obtained at 23 hours post injection, which demonstrate a visualization of the gallbladder. There is no definite scintigraphic evidence to suggest the presence of a cystic duct obstruction. PROCEDURE: HIDA scan CLINICAL INDICATION: 56 -year-old patient with abdominal pain. TECHNIQUE: Following the intravenous injection of 8.2 mCi of Tc-99m mebrofenin, multiple images of the abdomen were obtained up to 90 minutes post injection. COMPARISON: No prior studies. FINDINGS: The liver is promptly visualized, demonstrates persistent homogeneous distribution of radionuclide. There is visualization of the common bile duct and gastrointestinal activity within normal time. The gallbladder is not visualized up to 90 minutes post injection. IMPRESSION: 1. No definite visualization of the gallbladder up to 90 minutes post injection. 2. No evidence of a common bile duct obstruction. 3. Persistent liver activity. Delayed images to follow. RPTAT: QQ .Poornima Wen MD, MD Date Time Electronically viewed and signed by .Poornima Wen MD, on 02/08/2017 16:12 .L/
[2017-02-07] MEDS: morphine 2 MG INJ IV PRN (21:46)
[2017-02-08] VITALS (12 sets, daily range): BP systolic 97–140; BP diastolic 53–69; PULSE 72–86; RESP 17–19
[2017-02-08] MEDS: morphine 2 MG INJ IV PRN ×3 (02:03→17:46)
[2017-02-08] MEDS: PIPER-TAZO 3.375 GM IV (PMX) 100 ML IVPB SCH ×3 (06:09→20:51)
[2017-02-08] MEDS: FUROSEMIDE 20 MG TAB PO SCH (06:11)
[2017-02-08] MEDS: PANTOPRAZOLE (EC) 40 MG TAB PO SCH (06:11)
[2017-02-08 07:46] LABS: ADD SCAN DIFF NO
[2017-02-08 07:52] LABS: ABNORMAL IP MESSAGE 1; BASOPHIL # 0.1 10^3/ul (0.0-0.1); BASOPHILS % 0.7 % (0.0-2.0); EOSINOPHILS # 0.2 10^3/ul (0.0-0.5); EOSINOPHILS % 2.2 % (0.0-7.0); HEMOGLOBIN 8.5 g/dl (14.0-18.0); LYMPHOCYTES # 0.9 10^3/ul (0.8-2.9); MEAN CORPUSCULAR HEMOGLOBIN 32.8 pg (29.0-33.0); MEAN CORPUSCULAR VOLUME 96.5 fl (82.0-101.0); MEAN PLATELET VOLUME 12.1 fl (7.4-10.4); MONOCYTE # 0.8 10^3/ul (0.3-0.9); MONOCYTES % 8.2 % (0.0-11.0); NEUTROPHIL # 7.2 10^3/ul (1.6-7.5); NEUTROPHILS % 78.4 % (39.0-77.0); PLATELET COUNT 50 10^3/UL (140-415); RED BLOOD COUNT 2.59 10^6/ul (4.70-6.10); WHITE BLOOD COUNT 9.2 10^3/ul (4.8-10.8)
[2017-02-08 08:06] LABS: ALBUMIN 3.1 g/dl (3.3-4.9)
[2017-02-08 08:07] LABS: POTASSIUM 3.7 mmol/L (3.5-5.1)
[2017-02-08 08:08] LABS: INR 3.17; PARTIAL THROMBOPLASTIN TIME 50.5 Sec (25.0-35.0); PT RATIO 2.6
[2017-02-08 08:09] LABS: ALBUMIN/GLOBULIN RATIO 0.6; BILIRUBIN,DIRECT 7.8 mg/dl (0.00-0.20); BILIRUBIN,INDIRECT 4.5 mg/dl (0-1.1); BILIRUBIN,TOTAL 12.3 mg/dl (0.2-1.3); CREATININE 1.25 mg/dl (0.61-1.24); TOTAL PROTEIN 8.2 g/dl (6.1-8.1)
[2017-02-08 08:10] LABS: CALCIUM 8.9 mg/dl (8.4-10.2)
--- NOTE | 2017-02-08 09:41 | CONS ---
Date/Time of Note Date/Time of Note DATE: 02/08/17 TIME: 09:38 Assessment/Plan Assessment/Plan Additional Assessment/Plan 1. Hyponatremia likely secondary to liver cirrhosis. 2. no heaptorenal syndrome 3. Acute kidney injury, likely secondary to prerenal azotemia in the setting of decompensated liver cirrhosis. 4. 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 5. History of recurrent ascites, status post last paracentesis done 3 weeks ago , 1.6 liters of fluid was removed. 6. Acute hyperkalemia, possibly secondary to Bactrim. PLAN: US of abdomen did not show ascites, Gallstones within the distended gallbladder and mild gallbladder wall thickening.mild CBD dilatation MRCP pending Na dropped, d/c 1/2 NS,. will give albumin 25% 100 ml IV x 1 followed by NS at 50 cc/ hr x 2 liter then reassess, today Na 129 HCO3 improving with bicitra will follow up Consultation Date/Type/Reason Admit Date/Time February 05, 2017 at 18:37 Initial Consult Date 02/06/17 Type of Consultation: NEPHROLOGY Referring Provider: CARL GRANT MD 24 HR Interval Summary Free Text/Dictation currenlty getting NS , Na improved to 129,Bp stable Exam/Review of Systems Vital Signs Vitals Vital Signs Date Time Temp Pulse Resp B/P Pulse Ox O2 Delivery O2 Flow Rate FiO2 02/08/17 08:07 80 02/08/17 08:06 98.7 17 107/62 100 Intake and Output 02/07/17 02/07/17 02/08/17 15:00 23:00 07:00 Intake Total 0 ml 400 ml Balance 0 ml 400 ml Exam Constitutional: alert, oriented, well developed, jaunduced Head: normocephalic Eyes: icteric ENMT: nl external ears & nose Neck: non-tender Respiratory: clear to auscultation Cardiovascular: nl pulses Gastrointestinal: distended, ascites Musculoskeletal: nl extremities to inspection Extremities: normal pulses, bruises Neurological: nl mental status, nl speech Results Result Diagram: 02/08/17 0716 02/08/17 0716 Results 24 hrs Laboratory Tests Test 02/07/17 09:41 02/08/17 06:34 02/08/17 07:10 02/08/17 07:16 White Blood Count 9.6 9.2 Red Blood Count 1.93 L 2.59 #L Hemoglobin 6.8 *L 8.5 #L Hematocrit 19.2 L 25.0 #L Mean Corpuscular Volume 99.5 96.5 Mean Corpuscular Hemoglobin 35.2 H 32.8 Mean Corpuscular Hemoglobin Concent 35.4 34.0 Red Cell Distribution Width 15.0 H 16.0 H Platelet Count 52 L 50 L Mean Platelet Volume 11.5 H 12.1 H Neutrophils % 78.2 H 78.4 H Lymphocytes % 8.8 L 10.0 L Monocytes % 10.0 8.2 Eosinophils % 2.1 2.2 Basophils % 0.4 0.7 Nucleated Red Blood Cells % 0.0 0.0 Neutrophils # 7.5 7.2 Lymphocytes # 0.8 0.9 Monocytes # 1.0 H 0.8 Eosinophils # 0.2 0.2 Basophils # 0.0 0.1 Nucleated Red Blood Cells # 0.0 0.0 Lab Scanned Report BLOOD TRANSFUSION Prothrombin Time 33.0 H Prothrombin Time Ratio 2.6 INR International Normalized Ratio 3.17 Activated Partial Thromboplast Time 50.5 H Sodium Level 129 L Potassium Level 3.7 Chloride Level 98 Carbon Dioxide Level 17 L Anion Gap 18 H Blood Urea Nitrogen 25 H Creatinine 1.25 H Glucose Level 141 # Calcium Level 8.9 Total Bilirubin 12.3 H Direct Bilirubin 7.80 H Indirect Bilirubin 4.5 H Aspartate Amino Transf (AST/SGOT) 117 H Alanine Aminotransferase (ALT/SGPT) 63 Alkaline Phosphatase 215 H Total Protein 8.2 H Albumin 3.1 L Globulin 5.10 H Albumin/Globulin Ratio 0.60 Medications Medications Current Medications Piperacillin Sod/ Tazobactam Sod (Zosyn 3.375gm/ 100 ml (Pmx)) 100 ml @ 200 mls /hr Q8 IVPB Last administered on 02/08/17 06:09; Admin Dose 200 MLS/HR; Start 02/05/17 at 22:00 Multivitamins Therapeutic (Theragran) 1 tab DAILY PO Last administered on 09:23; Admin Dose 1 TAB; Start 02/06/17 at 09:00 Thiamine HCl (Vitamin B1) 100 mg DAILY PO Last administered on 02/06/17 09:23 ; Admin Dose 100 MG; Start 02/06/17 at 09:00 Furosemide (Lasix) 10 mg DAILY@06 PO Last administered on 02/08/17 06:11; Admin Dose 10 MG; Start 02/06/17 at 06:00 Lactulose (Enulose) 20 gm Q4 PRN PO CONSTIPATION; Start 02/06/17 at 00:00 Pantoprazole (Protonix Tab) 40 mg DAILY@06 PO Last administered on 02/08/17 06 :11; Admin Dose 40 MG; Start 02/06/17 at 06:00 Rifaximin (Xifaxan) 550 mg BID PO Last administered on 02/07/17 21:29; Admin Dose 550 MG; Start 02/06/17 at 09:00 Folic Acid (Folic Acid) 1 mg DAILY PO Last administered on 02/06/17 09:23; Admin Dose 1 MG; Start 02/06/17 at 09:00 Aripiprazole (Abilify) 1 mg HS PO Last administered on 02/07/17 21:29; Admin Dose 1 MG; Start 02/06/17 at 21:00 Morphine Sulfate (morphine) 2 mg Q3H PRN IV PAIN Last administered on 02:03; Admin Dose 2 MG; Start 02/06/17 at 01:00 Citric Acid/ Sodium Citrate 30 ml 30 ml TID PO Last administered on 02/07/17 21:29; Admin Dose 30 ML; Start 02/06/17 at 21:00 Sodium Chloride (NS) 1,000 ml @ 50 mls/hr Q20H IV Last administered on 14:00; Admin Dose 50 MLS/HR; Start 02/07/17 at 14:00; Stop 02/09/17 at 05: 59 ELLIOT PARRA MD February 08, 2017 09:41
--- NOTE | 2017-02-08 10:09 | CONS ---
Date/Time of Note Date/Time of Note DATE: 02/08/17 TIME: 10:00 Assessment/Plan Assessment/Plan Chief Complaint/Hosp Course 1. HIV pos 2. liver cirrhosis 3. ARF 4. hx of alcoholism 5. hx of substance abuse R: obtain records consider paracentesis if coagulation permits hiv viral load lactic acid procalc bcxs cont. Zosyn for now. Problems: Consultation Date/Type/Reason Admit Date/Time February 05, 2017 at 18:37 Date of Consultation: February 07, 2017 Type of Consultation: ID Reason for Consultation ABX RECS Referring Provider: CARL GRANT MD Hx of Present Illness A very unfortunate 56 yo male who has a hx of liver cirrhosis, substance abuse , recurrent ascites, recently transferred from [place] for apparent hepato-renal syndrome. He is being evaluated by multiple consultants including GI. He has been on Zosyn and Rifaximin. An ultrasound revealed a possible dilated biliary system that was considered possibly contributing to his progressive liver failure. He underwent an initial HIDA which was negative. He went for repeat today. His HIV test has returned pos Eyes: no complaints ENT: no complaints Respiratory: no complaints Cardiovascular: no complaints Gastrointestinal: diarrhea, nausea, pain Genitourinary: no complaints Musculoskeletal: other (Bilateral lower extremity weakness) Skin: bruising Neurologic: no complaints Lymphatic: no complaints Psychological: nl mood/affect, no complaints Immunologic: no complaints Past Medical History as per hpi Medical History: hypertension, renal disease, other Past Surgical History Past Surgical Hx: appendectomy Social History Alcohol Use: other (Alcoholism) Smoking Status: Former smoker Drug Use: other (History of substance use) Exam/Review of Systems Vital Signs Vitals Vital Signs Date Time Temp Pulse Resp B/P Pulse Ox O2 Delivery O2 Flow Rate FiO2 02/08/17 08:07 80 02/08/17 08:06 98.7 17 107/62 100 Intake and Output 02/07/17 02/07/17 02/08/17 15:00 23:00 07:00 Intake Total 0 ml 400 ml Balance 0 ml 400 ml Results Result Diagram: 02/08/17 0716 02/08/17 0716 Results 24 hrs Laboratory Tests Test 02/08/17 06:34 02/08/17 07:10 02/08/17 07:16 Lab Scanned Report BLOOD TRANSFUSION Prothrombin Time 33.0 H Prothrombin Time Ratio 2.6 INR International Normalized Ratio 3.17 Activated Partial Thromboplast Time 50.5 H White Blood Count 9.2 Red Blood Count 2.59 #L Hemoglobin 8.5 #L Hematocrit 25.0 #L Mean Corpuscular Volume 96.5 Mean Corpuscular Hemoglobin 32.8 Mean Corpuscular Hemoglobin Concent 34.0 Red Cell Distribution Width 16.0 H Platelet Count 50 L Mean Platelet Volume 12.1 H Neutrophils % 78.4 H Lymphocytes % 10.0 L Monocytes % 8.2 Eosinophils % 2.2 Basophils % 0.7 Nucleated Red Blood Cells % 0.0 Neutrophils # 7.2 Lymphocytes # 0.9 Monocytes # 0.8 Eosinophils # 0.2 Basophils # 0.1 Nucleated Red Blood Cells # 0.0 Sodium Level 129 L Potassium Level 3.7 Chloride Level 98 Carbon Dioxide Level 17 L Anion Gap 18 H Blood Urea Nitrogen 25 H Creatinine 1.25 H Glucose Level 141 # Calcium Level 8.9 Total Bilirubin 12.3 H Direct Bilirubin 7.80 H Indirect Bilirubin 4.5 H Aspartate Amino Transf (AST/SGOT) 117 H Alanine Aminotransferase (ALT/SGPT) 63 Alkaline Phosphatase 215 H Total Protein 8.2 H Albumin 3.1 L Globulin 5.10 H Albumin/Globulin Ratio 0.60 Medications Medications Current Medications Piperacillin Sod/ Tazobactam Sod (Zosyn 3.375gm/ 100 ml (Pmx)) 100 ml @ 200 mls /hr Q8 IVPB Last administered on 02/08/17 06:09; Admin Dose 200 MLS/HR; Start 02/05/17 at 22:00 Multivitamins Therapeutic (Theragran) 1 tab DAILY PO Last administered on 09:23; Admin Dose 1 TAB; Start 02/06/17 at 09:00 Thiamine HCl (Vitamin B1) 100 mg DAILY PO Last administered on 02/06/17 09:23 ; Admin Dose 100 MG; Start 02/06/17 at 09:00 Furosemide (Lasix) 10 mg DAILY@06 PO Last administered on 02/08/17 06:11; Admin Dose 10 MG; Start 02/06/17 at 06:00 Lactulose (Enulose) 20 gm Q4 PRN PO CONSTIPATION; Start 02/06/17 at 00:00 Pantoprazole (Protonix Tab) 40 mg DAILY@06 PO Last administered on 02/08/17 06 :11; Admin Dose 40 MG; Start 02/06/17 at 06:00 Rifaximin (Xifaxan) 550 mg BID PO Last administered on 02/07/17 21:29; Admin Dose 550 MG; Start 02/06/17 at 09:00 Folic Acid (Folic Acid) 1 mg DAILY PO Last administered on 02/06/17 09:23; Admin Dose 1 MG; Start 02/06/17 at 09:00 Aripiprazole (Abilify) 1 mg HS PO Last administered on 02/07/17 21:29; Admin Dose 1 MG; Start 02/06/17 at 21:00 Morphine Sulfate (morphine) 2 mg Q3H PRN IV PAIN Last administered on 02:03; Admin Dose 2 MG; Start 02/06/17 at 01:00 Citric Acid/ Sodium Citrate 30 ml 30 ml TID PO Last administered on 02/07/17 21:29; Admin Dose 30 ML; Start 02/06/17 at 21:00 Sodium Chloride (NS) 1,000 ml @ 50 mls/hr Q20H IV Last administered on 14:00; Admin Dose 50 MLS/HR; Start 02/07/17 at 14:00; Stop 02/09/17 at 05: 59 XAVI GARCES MD February 08, 2017 10:09
[2017-02-08] MEDS: CITRIC ACID/SODIUM CITRATE 15 ML CUP PO SCH ×3 (10:35→20:51)
[2017-02-08] MEDS: MULTIVITAMINS THERAPEUTIC TAB PO SCH (10:35)
[2017-02-08] MEDS: THIAMINE 100 MG TAB PO SCH (10:35)
[2017-02-08] MEDS: FOLIC ACID 1 MG TAB PO SCH (10:36)
[2017-02-08] MEDS: RIFAXIMIN 550 MG TAB PO SCH ×2 (10:37→20:50)
[2017-02-08] MEDS: SOD CHLORIDE 0.9% 1,000 ML IV SCH (10:42)
--- NOTE | 2017-02-08 16:18 | CONS ---
Date/Time of Note Date/Time of Note DATE: 02/08/17 TIME: 16:16 Assessment/Plan Assessment/Plan Chief Complaint/Hosp Course The patient is a 56-year-old male patient with a history of alcoholic liver cirrhosis, hemophilia, admitted with hepatorenal syndrome-nephrology. No active bleeding. Hematology consulted due to history of hemophilia and thrombocytopenia. # Thrombocytopenia, likely related to alcoholic liver cirrhosis and possible HIV infection - platelet count 79 at [place], now stable at 50K. Continue to monitor, no evidence of bleeding - Transfuse < 10, < 50 if bleeding, otherwise monitor - HIV screen positive, patient denies as states that he was tested 30 days ago and was negative, however repeat HIV screen positive. Pending HIV RNA. Appreciate ID recs. - Hepatitis panel negative, unlikely DIC as prolongation of caogs and low fibrinogen likely related to liver disease. No need to give cryoprecipitate unless patient bleeding. - Abdominal US showed 1. Coarsened hepatic echotexture and suggested liver surface nodularity and mild common bile duct dilatation. 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 Kehinde Jimenez who informed me that he does not have a history of hemophilia but rather simply coagulopathy due to liver disease. However, the patient states that he was diagnosed in his 20s with hemophilia, prior to liver disease, diagnosed by Dr. Hu (now ) in [place]. - no evidence of bleeding at this time and no intervention required; patient states he has never required factor infusions, likely mild hemophilia if at all , query diagnosis given even if found to have low Factor VIII or IX levels may be due to liver disease as made in the liver - patient unsure whether was diagnosed with hemophilia A or B, will order Factor VIII level as well; pending Factor IX level # Macrocytic anemia, MCV 101.6, Hgb 8.5 at [place] - Hgb 6.5 with MCV 99.0 on 02/07/17, s/p 2 units pRBCs now 8.5. Transfuse < 8. - iron panel with Fe 109, TIBC low at 125, %87, ferritin 1250 consistent with anemia of chronic inflammation, B12/folate/TSH SNL, pending methylmalonic acid and homocysteine; LDH elevated, retic count inappropriately low; haptoglobin < 15 (though likely low due to liver disease) Problems: Consultation Date/Type/Reason Admit Date/Time February 05, 2017 at 18:37 Initial Consult Date 02/06/17 Type of Consultation: Hematology Referring Provider: CARL GRANT MD 24 HR Interval Summary Free Text/Dictation Patient has no complaints today. Exam/Review of Systems Vital Signs Vitals Vital Signs Date Time Temp Pulse Resp B/P Pulse Ox O2 Delivery O2 Flow Rate FiO2 02/08/17 12:32 86 02/08/17 11:52 97.5 18 97/53 100 Intake and Output 02/07/17 02/07/17 02/08/17 15:00 23:00 07:00 Intake Total 0 ml 400 ml Balance 0 ml 400 ml Exam Constitutional: alert, oriented, well developed, jaunduced Head: normocephalic Eyes: icteric ENMT: nl external ears & nose Neck: non-tender Respiratory: clear to auscultation Cardiovascular: nl pulses Gastrointestinal: distended, ascites Musculoskeletal: nl extremities to inspection Extremities: normal pulses, bruises Neurological: nl mental status, nl speech Results Result Diagram: 02/08/17 0716 02/08/17 0716 Results 24 hrs Laboratory Tests Test 02/08/17 06:34 02/08/17 07:10 02/08/17 07:16 Lab Scanned Report BLOOD TRANSFUSION Prothrombin Time 33.0 H Prothrombin Time Ratio 2.6 INR International Normalized Ratio 3.17 Activated Partial Thromboplast Time 50.5 H White Blood Count 9.2 Red Blood Count 2.59 #L Hemoglobin 8.5 #L Hematocrit 25.0 #L Mean Corpuscular Volume 96.5 Mean Corpuscular Hemoglobin 32.8 Mean Corpuscular Hemoglobin Concent 34.0 Red Cell Distribution Width 16.0 H Platelet Count 50 L Mean Platelet Volume 12.1 H Neutrophils % 78.4 H Lymphocytes % 10.0 L Monocytes % 8.2 Eosinophils % 2.2 Basophils % 0.7 Nucleated Red Blood Cells % 0.0 Neutrophils # 7.2 Lymphocytes # 0.9 Monocytes # 0.8 Eosinophils # 0.2 Basophils # 0.1 Nucleated Red Blood Cells # 0.0 Sodium Level 129 L Potassium Level 3.7 Chloride Level 98 Carbon Dioxide Level 17 L Anion Gap 18 H Blood Urea Nitrogen 25 H Creatinine 1.25 H Glucose Level 141 # Calcium Level 8.9 Total Bilirubin 12.3 H Direct Bilirubin 7.80 H Indirect Bilirubin 4.5 H Aspartate Amino Transf (AST/SGOT) 117 H Alanine Aminotransferase (ALT/SGPT) 63 Alkaline Phosphatase 215 H Total Protein 8.2 H Albumin 3.1 L Globulin 5.10 H Albumin/Globulin Ratio 0.60 Medications Medications Current Medications Piperacillin Sod/ Tazobactam Sod (Zosyn 3.375gm/ 100 ml (Pmx)) 100 ml @ 200 mls /hr Q8 IVPB Last administered on 02/08/17 14:18; Admin Dose 200 MLS/HR; Start 02/05/17 at 22:00 Multivitamins Therapeutic (Theragran) 1 tab DAILY PO Last administered on 10:35; Admin Dose 1 TAB; Start 02/06/17 at 09:00 Thiamine HCl (Vitamin B1) 100 mg DAILY PO Last administered on 02/08/17 10:35 ; Admin Dose 100 MG; Start 02/06/17 at 09:00 Furosemide (Lasix) 10 mg DAILY@06 PO Last administered on 02/08/17 06:11; Admin Dose 10 MG; Start 02/06/17 at 06:00 Lactulose (Enulose) 20 gm Q4 PRN PO CONSTIPATION; Start 02/06/17 at 00:00 Pantoprazole (Protonix Tab) 40 mg DAILY@06 PO Last administered on 02/08/17 06 :11; Admin Dose 40 MG; Start 02/06/17 at 06:00 Rifaximin (Xifaxan) 550 mg BID PO Last administered on 02/08/17 10:37; Admin Dose 550 MG; Start 02/06/17 at 09:00 Folic Acid (Folic Acid) 1 mg DAILY PO Last administered on 02/08/17 10:36; Admin Dose 1 MG; Start 02/06/17 at 09:00 Aripiprazole (Abilify) 1 mg HS PO Last administered on 02/07/17 21:29; Admin Dose 1 MG; Start 02/06/17 at 21:00 Morphine Sulfate (morphine) 2 mg Q3H PRN IV PAIN Last administered on 14:42; Admin Dose 2 MG; Start 02/06/17 at 01:00 Citric Acid/ Sodium Citrate 30 ml 30 ml TID PO Last administered on 02/08/17 14:19; Admin Dose 30 ML; Start 02/06/17 at 21:00 Sodium Chloride (NS) 1,000 ml @ 50 mls/hr Q20H IV Last administered on 10:42; Admin Dose 50 MLS/HR; Start 02/07/17 at 14:00; Stop 02/09/17 at 05: 59 TOABRAM MD February 08, 2017 16:18
[2017-02-08 16:43] LABS: HOMOCYSTEINE - CARDIOVASCULAR 29.9 umol/L (<11.4)
--- NOTE | 2017-02-08 18:16 | PN ---
Date/Time of Note Date/Time of Note DATE: 02/08/17 TIME: 18:12 Assessment/Plan VTE Prophylaxis VTE Prophylaxis Intervention: SCD's Lines/Catheters IV Catheter Type (from [facility]): Peripheral IV Assessment/Plan Chief Complaint/Hosp Course Patient was improved skin color status post blood transfusion, hemoglobin is 8.5. Remains afebrile. ASSESSMENT AND PLAN: 1. Liver cirrhosis. 2. Ascites secondary to liver cirrhosis. 3. Hepatic encephalopathy. Continue lactulose and rifaximin. Monitor ammonia level. 4. Acute kidney injury, rule out hepatorenal syndrome. Dr. Robles is following in nephrology consultation. 5. Human immunodeficiency virus positive status. Dr. Ryan is following in infectious disease consultation. 6. Thrombocytopenia secondary to alcoholic liver cirrhosis and possible human immunodeficiency virus. Dr. Cabral is following in hematology consultation. 7. Microcytic anemia. Status post transfusion, continue to monitor hemoglobin and hematocrit. 8. Coagulopathy. 9. Cholelithiasis. The patient is pending MRCP. Further recommendations based on clinical course. Plan of care discussed with Dr. James. Problems: Exam/Review of Systems Vital Signs Vitals Vital Signs Date Time Temp Pulse Resp B/P Pulse Ox O2 Delivery O2 Flow Rate FiO2 02/08/17 16:32 73 02/08/17 16:25 98.7 17 114/66 100 Intake and Output 02/07/17 02/07/17 02/08/17 15:00 23:00 07:00 Intake Total 0 ml 400 ml Balance 0 ml 400 ml Exam Constitutional: alert, oriented, other (Jaundiced) Psych: no complaints Eyes: icteric Neck: supple Respiratory: clear to auscultation Cardiovascular: nl pulses, regular rate and rhythm Gastrointestinal: distended, soft Musculoskeletal: nl extremities to inspection Extremities: normal pulses Results Result Diagram: 02/08/17 0716 02/08/17 0716 Results 24 hrs Laboratory Tests Test 02/08/17 06:34 02/08/17 07:10 02/08/17 07:16 02/08/17 16:55 Lab Scanned Report BLOOD TRANSFUSION Prothrombin Time 33.0 H Prothrombin Time Ratio 2.6 INR International Normalized Ratio 3.17 Activated Partial Thromboplast Time 50.5 H White Blood Count 9.2 Red Blood Count 2.59 #L Hemoglobin 8.5 #L Hematocrit 25.0 #L Mean Corpuscular Volume 96.5 Mean Corpuscular Hemoglobin 32.8 Mean Corpuscular Hemoglobin Concent 34.0 Red Cell Distribution Width 16.0 H Platelet Count 50 L Mean Platelet Volume 12.1 H Neutrophils % 78.4 H Lymphocytes % 10.0 L Monocytes % 8.2 Eosinophils % 2.2 Basophils % 0.7 Nucleated Red Blood Cells % 0.0 Neutrophils # 7.2 Lymphocytes # 0.9 Monocytes # 0.8 Eosinophils # 0.2 Basophils # 0.1 Nucleated Red Blood Cells # 0.0 Sodium Level 129 L Potassium Level 3.7 Chloride Level 98 Carbon Dioxide Level 17 L Anion Gap 18 H Blood Urea Nitrogen 25 H Creatinine 1.25 H Glucose Level 141 # Calcium Level 8.9 Total Bilirubin 12.3 H Direct Bilirubin 7.80 H Indirect Bilirubin 4.5 H Aspartate Amino Transf (AST/SGOT) 117 H Alanine Aminotransferase (ALT/SGPT) 63 Alkaline Phosphatase 215 H Total Protein 8.2 H Albumin 3.1 L Globulin 5.10 H Albumin/Globulin Ratio 0.60 Lactic Acid Level 1.6 Medications Medications Current Medications Piperacillin Sod/ Tazobactam Sod (Zosyn 3.375gm/ 100 ml (Pmx)) 100 ml @ 200 mls /hr Q8 IVPB Last administered on 02/08/17 14:18; Admin Dose 200 MLS/HR; Start 02/05/17 at 22:00 Multivitamins Therapeutic (Theragran) 1 tab DAILY PO Last administered on 10:35; Admin Dose 1 TAB; Start 02/06/17 at 09:00 Thiamine HCl (Vitamin B1) 100 mg DAILY PO Last administered on 02/08/17 10:35 ; Admin Dose 100 MG; Start 02/06/17 at 09:00 Furosemide (Lasix) 10 mg DAILY@06 PO Last administered on 02/08/17 06:11; Admin Dose 10 MG; Start 02/06/17 at 06:00 Lactulose (Enulose) 20 gm Q4 PRN PO CONSTIPATION; Start 02/06/17 at 00:00 Pantoprazole (Protonix Tab) 40 mg DAILY@06 PO Last administered on 02/08/17 06 :11; Admin Dose 40 MG; Start 02/06/17 at 06:00 Rifaximin (Xifaxan) 550 mg BID PO Last administered on 02/08/17 10:37; Admin Dose 550 MG; Start 02/06/17 at 09:00 Folic Acid (Folic Acid) 1 mg DAILY PO Last administered on 02/08/17 10:36; Admin Dose 1 MG; Start 02/06/17 at 09:00 Aripiprazole (Abilify) 1 mg HS PO Last administered on 02/07/17 21:29; Admin Dose 1 MG; Start 02/06/17 at 21:00 Morphine Sulfate (morphine) 2 mg Q3H PRN IV PAIN Last administered on 17:46; Admin Dose 2 MG; Start 02/06/17 at 01:00 Citric Acid/ Sodium Citrate 30 ml 30 ml TID PO Last administered on 02/08/17 14:19; Admin Dose 30 ML; Start 02/06/17 at 21:00 Sodium Chloride (NS) 1,000 ml @ 50 mls/hr Q20H IV Last administered on 10:42; Admin Dose 50 MLS/HR; Start 02/07/17 at 14:00; Stop 02/09/17 at 05: 59 ALIVIA ALVAREZ February 08, 2017 18:16
--- NOTE | 2017-02-08 18:23 | RADRPT ---
PROCEDURE: MR Abdomen. CLINICAL INDICATION: Abdominal pain. TECHNIQUE: MRI abdomen without contrast was performed on the a high-resolution, high [facility] scanner. Patient was examined without IV contrast. Images were reviewed on a [employer] PACS workstation. COMPARISON: Ultrasound and HIDA scan from 02/07/2017 FINDINGS: MRI Abdomen: Breathing motion artifact significantly limits evaluation. The liver is small in size with nodular surface contour and prominence of the caudate lobe. No defi nite focal T2 hyperintense lesions are seen within the liver however evaluation is significantly jauregui ited secondary to patient breathing motion artifact. There is a small to moderate amount of perihep atic ascites. Stones are present in the gallbladder. There is irregular wall thickening of the gal lbladder wall. The common bile duct is not well seen. There is no evidence of intrahepatic biliary duct dilatation. The spleen is enlarged measuring 15.6 cm with a small amount of perisplenic ascit es. The kidneys, adrenal glands, and stomach are grossly unremarkable. The pancreas is not well ev aluated. IMPRESSION: Limited exam secondary to breathing motion artifact. 1. Cirrhosis without definite evidence of focal hepatic lesion. 2. Small ascites and splenomegaly. 3. Cholelithiasis with irregular gallbladder wall thickening may be related to chronic cholecystiti s however cannot rule out underlying gallbladder mass lesion. RPTAT: AA .Richie Daniels MD, MD Date Time Electronically viewed and signed by .Richie Daniels MD, MD on 02/08/2017 18:22 .A/
--- NOTE | 2017-02-08 18:23 | CONS ---
Date/Time of Note Date/Time of Note DATE: 02/08/17 TIME: 18:22 Assessment/Plan Assessment/Plan Chief Complaint/Hosp Course - HIV positive - Decompensated liver cirrhosis due to alcohol - Hyponatremia likely secondary to cirrhosis - Acute on chronic anemia requiring blood transfusion - Coagulopathy due to liver disease - Thrombocytopenia - Hyperammonemia - AGATA - Portal hypertension - Cholelithiasis - Recurrent ascites s/p paracentesis ~4 weeks ago with 1.6 L removed - S/p hyperkalemia - H/o alcoholism - H/o substance abuse Recommendations: - F/u MRI abdomen results - F/u records from [facility] - Awaiting further microbiology/serology: HIV viral load, procalcitonin, blood cxs - Continue empiric Zosyn for now - Consider paracentesis if coagulation permits Management d/w Pt, MICHELLE Guardado and Dr. Ryan. Problems: Consultation Date/Type/Reason Admit Date/Time February 05, 2017 at 18:37 Initial Consult Date 02/07/17 Type of Consultation: Infectious Disease Referring Provider: CARL GRANT MD 24 HR Interval Summary Free Text/Dictation MRI abdomen done with results pending; awaiting records from [facility] per d/w nursing staff. C/o pain rating 8/10. Had nausea earlier but no vomiting. +diarrhea due to lactulose. Reports unchanged intermittent tremors of LUE. States he has had only one paracentesis which was about 4 weeks ago. Pt states he can provide 10 year history of medical records likely by . Exam/Review of Systems Vital Signs Vitals Vital Signs Date Time Temp Pulse Resp B/P Pulse Ox O2 Delivery O2 Flow Rate FiO2 02/08/17 16:32 73 02/08/17 16:25 98.7 17 114/66 100 Intake and Output 02/07/17 02/07/17 02/08/17 15:00 23:00 07:00 Intake Total 0 ml 400 ml Balance 0 ml 400 ml Exam Constitutional: alert, frail, oriented, other (debilitated), well developed Head: atraumatic, normocephalic Eyes: icteric Neck: supple Cardiovascular: regular rate and rhythm, systolic murmur Gastrointestinal: ascites, distended, soft Extremities: edema Neurological: other (tremors on LUE) Skin: ecchymosis (scattered on BLE), other (Jaundiced) Results Result Diagram: 5/23/17 0716 02/08/17 0716 Results 24 hrs Laboratory Tests Test 02/08/17 06:34 02/08/17 07:10 02/08/17 07:16 02/08/17 16:55 Lab Scanned Report BLOOD TRANSFUSION Prothrombin Time 33.0 H Prothrombin Time Ratio 2.6 INR International Normalized Ratio 3.17 Activated Partial Thromboplast Time 50.5 H White Blood Count 9.2 Red Blood Count 2.59 #L Hemoglobin 8.5 #L Hematocrit 25.0 #L Mean Corpuscular Volume 96.5 Mean Corpuscular Hemoglobin 32.8 Mean Corpuscular Hemoglobin Concent 34.0 Red Cell Distribution Width 16.0 H Platelet Count 50 L Mean Platelet Volume 12.1 H Neutrophils % 78.4 H Lymphocytes % 10.0 L Monocytes % 8.2 Eosinophils % 2.2 Basophils % 0.7 Nucleated Red Blood Cells % 0.0 Neutrophils # 7.2 Lymphocytes # 0.9 Monocytes # 0.8 Eosinophils # 0.2 Basophils # 0.1 Nucleated Red Blood Cells # 0.0 Sodium Level 129 L Potassium Level 3.7 Chloride Level 98 Carbon Dioxide Level 17 L Anion Gap 18 H Blood Urea Nitrogen 25 H Creatinine 1.25 H Glucose Level 141 # Calcium Level 8.9 Total Bilirubin 12.3 H Direct Bilirubin 7.80 H Indirect Bilirubin 4.5 H Aspartate Amino Transf (AST/SGOT) 117 H Alanine Aminotransferase (ALT/SGPT) 63 Alkaline Phosphatase 215 H Total Protein 8.2 H Albumin 3.1 L Globulin 5.10 H Albumin/Globulin Ratio 0.60 Lactic Acid Level 1.6 Medications Medications Current Medications Piperacillin Sod/ Tazobactam Sod (Zosyn 3.375gm/ 100 ml (Pmx)) 100 ml @ 200 mls /hr Q8 IVPB Last administered on 02/08/17 14:18; Admin Dose 200 MLS/HR; Start 02/05/17 at 22:00 Multivitamins Therapeutic (Theragran) 1 tab DAILY PO Last administered on 10:35; Admin Dose 1 TAB; Start 02/06/17 at 09:00 Thiamine HCl (Vitamin B1) 100 mg DAILY PO Last administered on 02/08/17 10:35 ; Admin Dose 100 MG; Start 02/06/17 at 09:00 Furosemide (Lasix) 10 mg DAILY@06 PO Last administered on 02/08/17 06:11; Admin Dose 10 MG; Start 02/06/17 at 06:00 Lactulose (Enulose) 20 gm Q4 PRN PO CONSTIPATION; Start 02/06/17 at 00:00 Pantoprazole (Protonix Tab) 40 mg DAILY@06 PO Last administered on 02/08/17 06 :11; Admin Dose 40 MG; Start 02/06/17 at 06:00 Rifaximin (Xifaxan) 550 mg BID PO Last administered on 02/08/17 10:37; Admin Dose 550 MG; Start 02/06/17 at 09:00 Folic Acid (Folic Acid) 1 mg DAILY PO Last administered on 02/08/17 10:36; Admin Dose 1 MG; Start 02/06/17 at 09:00 Aripiprazole (Abilify) 1 mg HS PO Last administered on 02/07/17 21:29; Admin Dose 1 MG; Start 02/06/17 at 21:00 Morphine Sulfate (morphine) 2 mg Q3H PRN IV PAIN Last administered on 17:46; Admin Dose 2 MG; Start 02/06/17 at 01:00 Citric Acid/ Sodium Citrate 30 ml 30 ml TID PO Last administered on 02/08/17 14:19; Admin Dose 30 ML; Start 02/06/17 at 21:00 Sodium Chloride (NS) 1,000 ml @ 50 mls/hr Q20H IV Last administered on 10:42; Admin Dose 50 MLS/HR; Start 02/07/17 at 14:00; Stop 02/09/17 at 05: 59 JANKI YOUNGBLOOD NP February 08, 2017 18:23 Aripiprazole (Abilify) 1 mg HS PO Last administered on 02/07/17 21:29; Admin Dose 1 MG; Start 02/06/17 at 21:00 Morphine Sulfate (morphine) 2 mg Q3H PRN IV PAIN Last administered on 17:46; Admin Dose 2 MG; Start 02/06/17 at 01:00 Citric Acid/ Sodium Citrate 30 ml 30 ml TID PO Last administered on 02/08/17 14:19; Admin Dose 30 ML; Start 02/06/17 at 21:00 Sodium Chloride (NS) 1,000 ml @ 50 mls/hr Q20H IV Last administered on t 10:42; Admin Dose 50 MLS/HR; Start 02/07/17 at 14:00; Stop 02/09/17 at 05: 59 JANKI YOUNGBLOOD NP February 08, 2017 18:23
--- NOTE | 2017-02-08 18:57 | CONS ---
Date/Time of Note Date/Time of Note DATE: 02/08/17 TIME: 18:55 Assessment/Plan Assessment/Plan Additional Assessment/Plan IMPRESSION: 1. Decompensated cirrhosis of liver. 2. Alcoholic cirrhosis. 3. Ascites. 4. Renal failure, rule out hepatorenal. 5. History of polysubstance dependence in the past, in admission. 6. Anemia. 7. Thrombocytopenia. 8. Cholelithiasis. 9. Coagulopathy. 10. Ultrasound revealed gallstone and dilated biliary system 11. HIV positive Plan Correction of hyponatremia MRCP showed irregularity of the gallbladder wall. Bile duct was not visualized Consultation Date/Type/Reason Admit Date/Time February 05, 2017 at 18:37 Initial Consult Date 02/06/17 Type of Consultation: Infectious Disease Referring Provider: CARL GRANT MD 24 HR Interval Summary Free Text/Dictation Complaints of pain in the left arm Exam/Review of Systems Vital Signs Vitals Vital Signs Date Time Temp Pulse Resp B/P Pulse Ox O2 Delivery O2 Flow Rate FiO2 02/08/17 16:32 73 02/08/17 16:25 98.7 17 114/66 100 Intake and Output 02/07/17 02/07/17 02/08/17 15:00 23:00 07:00 Intake Total 0 ml 400 ml Balance 0 ml 400 ml Exam Constitutional: alert, oriented, well developed Psych: nl mood/affect, no complaints Head: atraumatic, normocephalic Eyes: EOMI, PERRL, nl conjunctiva, nl lids, nl sclera ENMT: nl external ears & nose, nl lips & teeth, nl nasal mucosa & septum Neck: non-tender, supple Respiratory: clear to auscultation, normal air movement Cardiovascular: nl pulses, regular rate and rhythm Gastrointestinal: nl liver, spleen, non-tender, soft Musculoskeletal: nl extremities to inspection, nl gait and stance Extremities: normal pulses Neurological: VIDEO TAPE TRANSFERRER II-XII intact, nl mental status, nl speech, nl strength Skin: nl turgor, No rash or lesions Lymph: nl lymph nodes Results Result Diagram: 02/08/17 0716 02/08/17 0716 Results 24 hrs Laboratory Tests Test 02/08/17 06:34 02/08/17 07:10 02/08/17 07:16 02/08/17 16:55 Lab Scanned Report BLOOD TRANSFUSION Prothrombin Time 33.0 H Prothrombin Time Ratio 2.6 INR International Normalized Ratio 3.17 Activated Partial Thromboplast Time 50.5 H White Blood Count 9.2 Red Blood Count 2.59 #L Hemoglobin 8.5 #L Hematocrit 25.0 #L Mean Corpuscular Volume 96.5 Mean Corpuscular Hemoglobin 32.8 Mean Corpuscular Hemoglobin Concent 34.0 Red Cell Distribution Width 16.0 H Platelet Count 50 L Mean Platelet Volume 12.1 H Neutrophils % 78.4 H Lymphocytes % 10.0 L Monocytes % 8.2 Eosinophils % 2.2 Basophils % 0.7 Nucleated Red Blood Cells % 0.0 Neutrophils # 7.2 Lymphocytes # 0.9 Monocytes # 0.8 Eosinophils # 0.2 Basophils # 0.1 Nucleated Red Blood Cells # 0.0 Sodium Level 129 L Potassium Level 3.7 Chloride Level 98 Carbon Dioxide Level 17 L Anion Gap 18 H Blood Urea Nitrogen 25 H Creatinine 1.25 H Glucose Level 141 # Calcium Level 8.9 Total Bilirubin 12.3 H Direct Bilirubin 7.80 H Indirect Bilirubin 4.5 H Aspartate Amino Transf (AST/SGOT) 117 H Alanine Aminotransferase (ALT/SGPT) 63 Alkaline Phosphatase 215 H Total Protein 8.2 H Albumin 3.1 L Globulin 5.10 H Albumin/Globulin Ratio 0.60 Lactic Acid Level 1.6 Medications Medications Current Medications Piperacillin Sod/ Tazobactam Sod (Zosyn 3.375gm/ 100 ml (Pmx)) 100 ml @ 200 mls /hr Q8 IVPB Last administered on 02/08/17 14:18; Admin Dose 200 MLS/HR; Start 02/05/17 at 22:00 Multivitamins Therapeutic (Theragran) 1 tab DAILY PO Last administered on 10:35; Admin Dose 1 TAB; Start 02/06/17 at 09:00 Thiamine HCl (Vitamin B1) 100 mg DAILY PO Last administered on 02/08/17 10:35 ; Admin Dose 100 MG; Start 02/06/17 at 09:00 Furosemide (Lasix) 10 mg DAILY@06 PO Last administered on 02/08/17 06:11; Admin Dose 10 MG; Start 02/06/17 at 06:00 Lactulose (Enulose) 20 gm Q4 PRN PO CONSTIPATION; Start 02/06/17 at 00:00 Pantoprazole (Protonix Tab) 40 mg DAILY@06 PO Last administered on 02/08/17 06 :11; Admin Dose 40 MG; Start 02/06/17 at 06:00 Rifaximin (Xifaxan) 550 mg BID PO Last administered on 02/08/17 10:37; Admin Dose 550 MG; Start 02/06/17 at 09:00 Folic Acid (Folic Acid) 1 mg DAILY PO Last administered on 02/08/17 10:36; Admin Dose 1 MG; Start 02/06/17 at 09:00 Aripiprazole (Abilify) 1 mg HS PO Last administered on 02/07/17 21:29; Admin Dose 1 MG; Start 02/06/17 at 21:00 Morphine Sulfate (morphine) 2 mg Q3H PRN IV PAIN Last administered on 17:46; Admin Dose 2 MG; Start 02/06/17 at 01:00 Citric Acid/ Sodium Citrate 30 ml 30 ml TID PO Last administered on 02/08/17 14:19; Admin Dose 30 ML; Start 02/06/17 at 21:00 Sodium Chloride (NS) 1,000 ml @ 50 mls/hr Q20H IV Last administered on 10:42; Admin Dose 50 MLS/HR; Start 02/07/17 at 14:00; Stop 02/09/17 at 05: 59 IGNACIA HERR MD February 08, 2017 18:57
[2017-02-08] MEDS: ARIPIPRAZOLE 2 MG TAB PO SCH (20:50)
[2017-02-09] VITALS (10 sets, daily range): BP systolic 107–125; BP diastolic 56–70; PULSE 70–84; RESP 18–20
[2017-02-09] MEDS: PIPER-TAZO 3.375 GM IV (PMX) 100 ML IVPB SCH ×3 (06:25→22:00)
[2017-02-09] MEDS: FUROSEMIDE 20 MG TAB PO SCH (06:26)
[2017-02-09] MEDS: PANTOPRAZOLE (EC) 40 MG TAB PO SCH (06:26)
[2017-02-09 08:37] LABS: ADD SCAN DIFF NO
[2017-02-09 08:49] LABS: ABNORMAL IP MESSAGE 1; BASOPHIL # 0.1 10^3/ul (0.0-0.1); BASOPHILS % 0.7 % (0.0-2.0); EOSINOPHILS # 0.3 10^3/ul (0.0-0.5); EOSINOPHILS % 2.6 % (0.0-7.0); HEMATOCRIT 25.8 % (42.0-52.0); HEMOGLOBIN 8.8 g/dl (14.0-18.0); LYMPHOCYTES # 0.7 10^3/ul (0.8-2.9); LYMPHOCYTES % 7.1 % (15.0-51.0); MEAN CORPUSCULAR HGB CONC 34.1 g/dl (32.0-37.0); MEAN CORPUSCULAR VOLUME 96.6 fl (82.0-101.0); MEAN PLATELET VOLUME 11.5 fl (7.4-10.4); MONOCYTE # 0.9 10^3/ul (0.3-0.9); MONOCYTES % 8.7 % (0.0-11.0); NEUTROPHIL # 7.9 10^3/ul (1.6-7.5); NEUTROPHILS % 80.3 % (39.0-77.0); RED BLOOD COUNT 2.67 10^6/ul (4.70-6.10); RED CELL DISTRIBUTION WIDTH 16.9 % (11.5-14.5); WHITE BLOOD COUNT 9.8 10^3/ul (4.8-10.8)
[2017-02-09 09:06] LABS: PLATELET COUNT 53 10^3/UL (140-415)
[2017-02-09 09:13] LABS: CALCIUM 8.8 mg/dl (8.4-10.2); CREATININE 1.33 mg/dl (0.61-1.24); POTASSIUM 4.5 mmol/L (3.5-5.1)
[2017-02-09] MEDS: THIAMINE 100 MG TAB PO SCH (09:13)
[2017-02-09] MEDS: CITRIC ACID/SODIUM CITRATE 15 ML CUP PO SCH ×3 (09:13→21:19)
[2017-02-09] MEDS: MULTIVITAMINS THERAPEUTIC TAB PO SCH (09:13)
[2017-02-09] MEDS: FOLIC ACID 1 MG TAB PO SCH (09:13)
[2017-02-09] MEDS: RIFAXIMIN 550 MG TAB PO SCH ×2 (09:14→21:19)
[2017-02-09 10:25] LABS: BURR CELLS FEW
[2017-02-09] MEDS: morphine 2 MG INJ IV PRN ×4 (10:32→22:12)
--- NOTE | 2017-02-09 12:10 | CONS ---
Date/Time of Note Date/Time of Note DATE: 02/09/17 TIME: 12:08 Assessment/Plan Assessment/Plan Chief Complaint/Hosp Course The patient is a 56-year-old male patient with a history of alcoholic liver cirrhosis, hemophilia, admitted with hepatorenal syndrome-nephrology. No active bleeding. Hematology consulted due to history of hemophilia and thrombocytopenia. # Thrombocytopenia, likely related to alcoholic liver cirrhosis and splenomegaly and HIV infection - platelet count 79 at [place], now stable at 50K. Continue to monitor, no evidence of bleeding - Transfuse < 10, < 50 if bleeding, otherwise monitor - HIV screen positive, patient denies as states that he was tested 30 days ago and was negative, however repeat HIV screen positive. Pending HIV RNA. Appreciate ID recs. - Hepatitis panel negative, unlikely DIC as prolongation of caogs and low fibrinogen likely related to liver disease. No need to give cryoprecipitate unless patient bleeding. - Abdominal US showed 1. Coarsened hepatic echotexture and suggested liver surface nodularity and mild common bile duct dilatation. - MRI Abdomen 02/08/17 showed 1. Cirrhosis without definite evidence of focal hepatic lesion. 2. Small ascites and splenomegaly. 3. Cholelithiasis with irregular gallbladder wall thickening may be related to chronic cholecystitis however cannot rule out underlying gallbladder mass lesion. 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 Kehinde Jimenez who informed me that he does not have a history of hemophilia but rather simply coagulopathy due to liver disease. However, the patient states that he was diagnosed in his 20s with hemophilia, prior to liver disease, diagnosed by Dr. Hu (now ) in [place]. - no evidence of bleeding at this time and no intervention required; patient states he has never required factor infusions, likely mild hemophilia if at all , query diagnosis given even if found to have low Factor VIII or IX levels may be due to liver disease as made in the liver - patient unsure whether was diagnosed with hemophilia A or B; pending Factor VIII and IX level # Macrocytic anemia, MCV 101.6, Hgb 8.5 at [place] - Hgb 6.5 with MCV 99.0 on 02/07/17, s/p 2 units pRBCs now stable at 8.8 Transfuse < 8. - iron panel with Fe 109, TIBC low at 125, %87, ferritin 1250 consistent with anemia of chronic inflammation, B12/folate/TSH SNL, homocysteine elevated at 29.9; pending methylmalonic acid; LDH elevated, retic count inappropriately low ; haptoglobin < 15 (though likely low due to liver disease) Case management request for auth to be obtained for outpatient follow-up with me or Dr. Naya Dawson Problems: Consultation Date/Type/Reason Admit Date/Time February 05, 2017 at 18:37 Initial Consult Date 02/06/17 Type of Consultation: Infectious Disease Referring Provider: CARL GRANT MD Exam/Review of Systems Vital Signs Vitals Vital Signs Date Time Temp Pulse Resp B/P Pulse Ox O2 Delivery O2 Flow Rate FiO2 02/09/17 12:00 98.0 77 20 113/66 96 Intake and Output 02/08/17 02/08/17 02/09/17 15:00 23:00 07:00 Intake Total 300 ml 950 ml 350 ml Output Total 700 ml 825 ml Balance 300 ml 250 ml -475 ml Results Result Diagram: 02/09/17 0740 02/09/17 0740 Results 24 hrs Laboratory Tests Test 02/08/17 16:55 02/09/17 07:40 Lactic Acid Level 1.6 White Blood Count 9.8 Red Blood Count 2.67 L Hemoglobin 8.8 L Hematocrit 25.8 L Mean Corpuscular Volume 96.6 Mean Corpuscular Hemoglobin 33.0 Mean Corpuscular Hemoglobin Concent 34.1 Red Cell Distribution Width 16.9 H Platelet Count 53 L Mean Platelet Volume 11.5 H Neutrophils % 80.3 H Lymphocytes % 7.1 L Monocytes % 8.7 Eosinophils % 2.6 Basophils % 0.7 Nucleated Red Blood Cells % 0.0 Neutrophils # 7.9 H Lymphocytes # 0.7 L Monocytes # 0.9 Eosinophils # 0.3 Basophils # 0.1 Nucleated Red Blood Cells # 0.0 Sodium Level 128 L Potassium Level 4.5 Chloride Level 99 Carbon Dioxide Level 19 L Anion Gap 15 Blood Urea Nitrogen 22 H Creatinine 1.33 H Glucose Level 123 Calcium Level 8.8 Medications Medications Current Medications Piperacillin Sod/ Tazobactam Sod (Zosyn 3.375gm/ 100 ml (Pmx)) 100 ml @ 200 mls /hr Q8 IVPB Last administered on 02/09/17 06:25; Admin Dose 200 MLS/HR; Start 02/05/17 at 22:00 Multivitamins Therapeutic (Theragran) 1 tab DAILY PO Last administered on 09:13; Admin Dose 1 TAB; Start 02/06/17 at 09:00 Thiamine HCl (Vitamin B1) 100 mg DAILY PO Last administered on 02/09/17 09:13 ; Admin Dose 100 MG; Start 02/06/17 at 09:00 Furosemide (Lasix) 10 mg DAILY@06 PO Last administered on 02/09/17 06:26; Admin Dose 10 MG; Start 02/06/17 at 06:00 Lactulose (Enulose) 20 gm Q4 PRN PO CONSTIPATION; Start 02/06/17 at 00:00 Pantoprazole (Protonix Tab) 40 mg DAILY@06 PO Last administered on 02/09/17 06 :26; Admin Dose 40 MG; Start 02/06/17 at 06:00 Rifaximin (Xifaxan) 550 mg BID PO Last administered on 02/09/17 09:14; Admin Dose 550 MG; Start 02/06/17 at 09:00 Folic Acid (Folic Acid) 1 mg DAILY PO Last administered on 02/09/17 09:13; Admin Dose 1 MG; Start 02/06/17 at 09:00 Aripiprazole (Abilify) 1 mg HS PO Last administered on 02/08/17 20:50; Admin Dose 1 MG; Start 02/06/17 at 21:00 Morphine Sulfate (morphine) 2 mg Q3H PRN IV PAIN Last administered on 10:32; Admin Dose 2 MG; Start 02/06/17 at 01:00 Citric Acid/ Sodium Citrate (Bicitra) 30 ml TID PO Last administered on 09:13; Admin Dose 30 ML; Start 02/06/17 at 21:00 ABRAM HINDS MD February 09, 2017 12:10
--- NOTE | 2017-02-09 16:57 | CONS ---
Date/Time of Note Date/Time of Note DATE: 02/09/17 TIME: 16:56 Assessment/Plan Assessment/Plan Chief Complaint/Hosp Course - HIV positive - Decompensated liver cirrhosis due to alcohol - Hyponatremia likely secondary to cirrhosis - Acute on chronic anemia requiring blood transfusion - Coagulopathy due to liver disease - Thrombocytopenia - Hyperammonemia - AGATA - Portal hypertension - Cholelithiasis - Recurrent ascites s/p paracentesis ~4 weeks ago with 1.6 L removed - S/p hyperkalemia - H/o alcoholism - H/o substance abuse Recommendations: - consider 4th generation hiv testing. - F/u records from [place] - Awaiting further microbiology/serology: HIV viral load, procalcitonin, blood cxs - Continue empiric Zosyn for now Problems: Consultation Date/Type/Reason Admit Date/Time February 05, 2017 at 18:37 Initial Consult Date 02/06/17 Type of Consultation: Infectious Disease Referring Provider: CARL GRANT MD Exam/Review of Systems Vital Signs Vitals Vital Signs Date Time Temp Pulse Resp B/P Pulse Ox O2 Delivery O2 Flow Rate FiO2 02/09/17 16:00 75 02/09/17 15:37 97.7 20 107/56 100 Intake and Output 02/08/17 02/08/17 02/09/17 15:00 23:00 07:00 Intake Total 300 ml 950 ml 350 ml Output Total 700 ml 825 ml Balance 300 ml 250 ml -475 ml Exam sleeping peacefully Head: normocephalic Respiratory: clear to auscultation Cardiovascular: regular rate and rhythm Results Result Diagram: 02/09/17 0740 02/09/17 0740 Results 24 hrs Laboratory Tests Test 02/09/17 07:40 White Blood Count 9.8 Red Blood Count 2.67 L Hemoglobin 8.8 L Hematocrit 25.8 L Mean Corpuscular Volume 96.6 Mean Corpuscular Hemoglobin 33.0 Mean Corpuscular Hemoglobin Concent 34.1 Red Cell Distribution Width 16.9 H Platelet Count 53 L Mean Platelet Volume 11.5 H Neutrophils % 80.3 H Lymphocytes % 7.1 L Monocytes % 8.7 Eosinophils % 2.6 Basophils % 0.7 Nucleated Red Blood Cells % 0.0 Neutrophils # 7.9 H Lymphocytes # 0.7 L Monocytes # 0.9 Eosinophils # 0.3 Basophils # 0.1 Nucleated Red Blood Cells # 0.0 Sodium Level 128 L Potassium Level 4.5 Chloride Level 99 Carbon Dioxide Level 19 L Anion Gap 15 Blood Urea Nitrogen 22 H Creatinine 1.33 H Glucose Level 123 Calcium Level 8.8 Medications Medications Current Medications Piperacillin Sod/ Tazobactam Sod (Zosyn 3.375gm/ 100 ml (Pmx)) 100 ml @ 200 mls /hr Q8 IVPB Last administered on 02/09/17 13:24; Admin Dose 200 MLS/HR; Start 02/05/17 at 22:00 Multivitamins Therapeutic (Theragran) 1 tab DAILY PO Last administered on 09:13; Admin Dose 1 TAB; Start 02/06/17 at 09:00 Thiamine HCl (Vitamin B1) 100 mg DAILY PO Last administered on 02/09/17 09:13 ; Admin Dose 100 MG; Start 02/06/17 at 09:00 Furosemide (Lasix) 10 mg DAILY@06 PO Last administered on 02/09/17 06:26; Admin Dose 10 MG; Start 02/06/17 at 06:00 Lactulose (Enulose) 20 gm Q4 PRN PO CONSTIPATION; Start 02/06/17 at 00:00 Pantoprazole (Protonix Tab) 40 mg DAILY@06 PO Last administered on 02/09/17 06 :26; Admin Dose 40 MG; Start 02/06/17 at 06:00 Rifaximin (Xifaxan) 550 mg BID PO Last administered on 02/09/17 09:14; Admin Dose 550 MG; Start 02/06/17 at 09:00 Folic Acid (Folic Acid) 1 mg DAILY PO Last administered on 02/09/17 09:13; Admin Dose 1 MG; Start 02/06/17 at 09:00 Aripiprazole (Abilify) 1 mg HS PO Last administered on 02/08/17 20:50; Admin Dose 1 MG; Start 02/06/17 at 21:00 Morphine Sulfate (morphine) 2 mg Q3H PRN IV PAIN Last administered on 14:01; Admin Dose 2 MG; Start 02/06/17 at 01:00 Citric Acid/ Sodium Citrate (Bicitra) 30 ml TID PO Last administered on 13:24; Admin Dose 30 ML; Start 02/06/17 at 21:00 XAVI GARCES MD February 09, 2017 16:57
--- NOTE | 2017-02-09 17:45 | CONS ---
Date/Time of Note Date/Time of Note DATE: 02/09/17 TIME: 17:43 Assessment/Plan Assessment/Plan Additional Assessment/Plan 1. Hyponatremia likely secondary to liver cirrhosis. 2. no heaptorenal syndrome 3. Acute kidney injury, likely secondary to prerenal azotemia in the setting of decompensated liver cirrhosis. 4. 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 5. History of recurrent ascites, status post last paracentesis done 3 weeks ago , 1.6 liters of fluid was removed. 6. Acute hyperkalemia, possibly secondary to Bactrim. PLAN: US of abdomen did not show ascites, Gallstones within the distended gallbladder and mild gallbladder wall thickening.mild CBD dilatation MRCP pending Na 128 today, after IVF NS,.K stable HCO3 improving with bicitra MRCP showed liver cirrhosis with small ascites will follow up Consultation Date/Type/Reason Admit Date/Time February 05, 2017 at 18:37 Initial Consult Date 02/06/17 Type of Consultation: NEPHROLOGy Referring Provider: CARL GRANT MD 24 HR Interval Summary Free Text/Dictation Cr 1.3, Na 128, K stable, Hb 8.8 stable Exam/Review of Systems Vital Signs Vitals Vital Signs Date Time Temp Pulse Resp B/P Pulse Ox O2 Delivery O2 Flow Rate FiO2 02/09/17 16:00 75 02/09/17 15:37 97.7 20 107/56 100 Intake and Output 02/08/17 02/08/17 02/09/17 15:00 23:00 07:00 Intake Total 300 ml 950 ml 350 ml Output Total 700 ml 825 ml Balance 300 ml 250 ml -475 ml Exam Constitutional: alert, oriented, well developed, jaunduced Head: normocephalic Eyes: icteric ENMT: nl external ears & nose Neck: non-tender Respiratory: clear to auscultation Cardiovascular: nl pulses Gastrointestinal: distended, ascites Musculoskeletal: nl extremities to inspection Extremities: normal pulses, bruises Neurological: nl mental status, nl speech Results Result Diagram: 02/09/17 0740 02/09/17 0740 Results 24 hrs Laboratory Tests Test 02/09/17 07:40 White Blood Count 9.8 Red Blood Count 2.67 L Hemoglobin 8.8 L Hematocrit 25.8 L Mean Corpuscular Volume 96.6 Mean Corpuscular Hemoglobin 33.0 Mean Corpuscular Hemoglobin Concent 34.1 Red Cell Distribution Width 16.9 H Platelet Count 53 L Mean Platelet Volume 11.5 H Neutrophils % 80.3 H Lymphocytes % 7.1 L Monocytes % 8.7 Eosinophils % 2.6 Basophils % 0.7 Nucleated Red Blood Cells % 0.0 Neutrophils # 7.9 H Lymphocytes # 0.7 L Monocytes # 0.9 Eosinophils # 0.3 Basophils # 0.1 Nucleated Red Blood Cells # 0.0 Sodium Level 128 L Potassium Level 4.5 Chloride Level 99 Carbon Dioxide Level 19 L Anion Gap 15 Blood Urea Nitrogen 22 H Creatinine 1.33 H Glucose Level 123 Calcium Level 8.8 Medications Medications Current Medications Piperacillin Sod/ Tazobactam Sod (Zosyn 3.375gm/ 100 ml (Pmx)) 100 ml @ 200 mls /hr Q8 IVPB Last administered on 02/09/17 13:24; Admin Dose 200 MLS/HR; Start 02/05/17 at 22:00 Multivitamins Therapeutic (Theragran) 1 tab DAILY PO Last administered on 09:13; Admin Dose 1 TAB; Start 02/06/17 at 09:00 Thiamine HCl (Vitamin B1) 100 mg DAILY PO Last administered on 02/09/17 09:13 ; Admin Dose 100 MG; Start 02/06/17 at 09:00 Furosemide (Lasix) 10 mg DAILY@06 PO Last administered on 02/09/17 06:26; Admin Dose 10 MG; Start 02/06/17 at 06:00 Lactulose (Enulose) 20 gm Q4 PRN PO CONSTIPATION; Start 02/06/17 at 00:00 Pantoprazole (Protonix Tab) 40 mg DAILY@06 PO Last administered on 02/09/17 06 :26; Admin Dose 40 MG; Start 02/06/17 at 06:00 Rifaximin (Xifaxan) 550 mg BID PO Last administered on 02/09/17 09:14; Admin Dose 550 MG; Start 02/06/17 at 09:00 Folic Acid (Folic Acid) 1 mg DAILY PO Last administered on 02/09/17 09:13; Admin Dose 1 MG; Start 02/06/17 at 09:00 Aripiprazole (Abilify) 1 mg HS PO Last administered on 02/08/17 20:50; Admin Dose 1 MG; Start 02/06/17 at 21:00 Morphine Sulfate (morphine) 2 mg Q3H PRN IV PAIN Last administered on 14:01; Admin Dose 2 MG; Start 02/06/17 at 01:00 Citric Acid/ Sodium Citrate (Bicitra) 30 ml TID PO Last administered on 13:24; Admin Dose 30 ML; Start 02/06/17 at 21:00 ELLIOT PARRA MD February 09, 2017 17:45
--- NOTE | 2017-02-09 18:21 | PN ---
Date/Time of Note Date/Time of Note DATE: 02/09/17 TIME: 18:16 Assessment/Plan VTE Prophylaxis VTE Prophylaxis Intervention: SCD's Lines/Catheters IV [facility] Peripheral IV Assessment/Plan Chief Complaint/Hosp Course Patient stated that he feels better, denies nausea and vomiting. Patient's complains that he has chest tightness on exertion, will obtain chest x-ray, cardiac enzymes and 2D echo cardiology consult ASSESSMENT AND PLAN: - Liver cirrhosis. Dr. Zelaya is following in cart in gastroenterology consultation. - Ascites secondary to liver cirrhosis. - Hepatic encephalopathy. Continue lactulose and rifaximin. Monitor ammonia level. - Acute kidney injury, rule out hepatorenal syndrome. Dr. Robles is following in nephrology consultation. - Human immunodeficiency virus positive status. Dr. Ryan is following in infectious disease consultation. - Thrombocytopenia secondary to alcoholic liver cirrhosis and possible human immunodeficiency virus. Dr. Cabral is following in hematology consultation. - Microcytic anemia. Status post transfusion, continue to monitor hemoglobin and hematocrit. - Coagulopathy. - Cholelithiasis. - Hyponatremia Further recommendations based on clinical course. Plan of care discussed with Dr. James. Problems: Exam/Review of Systems Vital Signs Vitals Vital Signs Date Time Temp Pulse Resp B/P Pulse Ox O2 Delivery O2 Flow Rate FiO2 02/09/17 16:00 75 02/09/17 15:37 97.7 20 107/56 100 Intake and Output 02/08/17 02/08/17 02/09/17 15:00 23:00 07:00 Intake Total 300 ml 950 ml 350 ml Output Total 700 ml 825 ml Balance 300 ml 250 ml -475 ml Exam Constitutional: alert, oriented, other (Jaundiced) Psych: no complaints Eyes: icteric Neck: supple Respiratory: clear to auscultation Cardiovascular: nl pulses, regular rate and rhythm Gastrointestinal: distended, soft Musculoskeletal: nl extremities to inspection Extremities: normal pulses Results Result Diagram: 02/09/17 0740 02/09/17 0740 Results 24 hrs Laboratory Tests Test 02/09/17 07:40 White Blood Count 9.8 Red Blood Count 2.67 L Hemoglobin 8.8 L Hematocrit 25.8 L Mean Corpuscular Volume 96.6 Mean Corpuscular Hemoglobin 33.0 Mean Corpuscular Hemoglobin Concent 34.1 Red Cell Distribution Width 16.9 H Platelet Count 53 L Mean Platelet Volume 11.5 H Neutrophils % 80.3 H Lymphocytes % 7.1 L Monocytes % 8.7 Eosinophils % 2.6 Basophils % 0.7 Nucleated Red Blood Cells % 0.0 Neutrophils # 7.9 H Lymphocytes # 0.7 L Monocytes # 0.9 Eosinophils # 0.3 Basophils # 0.1 Nucleated Red Blood Cells # 0.0 Sodium Level 128 L Potassium Level 4.5 Chloride Level 99 Carbon Dioxide Level 19 L Anion Gap 15 Blood Urea Nitrogen 22 H Creatinine 1.33 H Glucose Level 123 Calcium Level 8.8 Medications Medications Current Medications Piperacillin Sod/ Tazobactam Sod (Zosyn 3.375gm/ 100 ml (Pmx)) 100 ml @ 200 mls /hr Q8 IVPB Last administered on 02/09/17 13:24; Admin Dose 200 MLS/HR; Start 02/05/17 at 22:00 Multivitamins Therapeutic (Theragran) 1 tab DAILY PO Last administered on 09:13; Admin Dose 1 TAB; Start 02/06/17 at 09:00 Thiamine HCl (Vitamin B1) 100 mg DAILY PO Last administered on 02/09/17 09:13 ; Admin Dose 100 MG; Start 02/06/17 at 09:00 Furosemide (Lasix) 10 mg DAILY@06 PO Last administered on 02/09/17 06:26; Admin Dose 10 MG; Start 02/06/17 at 06:00 Lactulose (Enulose) 20 gm Q4 PRN PO CONSTIPATION; Start 02/06/17 at 00:00 Pantoprazole (Protonix Tab) 40 mg DAILY@06 PO Last administered on 02/09/17 06 :26; Admin Dose 40 MG; Start 02/06/17 at 06:00 Rifaximin (Xifaxan) 550 mg BID PO Last administered on 02/09/17 09:14; Admin Dose 550 MG; Start 02/06/17 at 09:00 Folic Acid (Folic Acid) 1 mg DAILY PO Last administered on 02/09/17 09:13; Admin Dose 1 MG; Start 02/06/17 at 09:00 Aripiprazole (Abilify) 1 mg HS PO Last administered on 02/08/17 20:50; Admin Dose 1 MG; Start 02/06/17 at 21:00 Morphine Sulfate (morphine) 2 mg Q3H PRN IV PAIN Last administered on 14:01; Admin Dose 2 MG; Start 02/06/17 at 01:00 Citric Acid/ Sodium Citrate (Bicitra) 30 ml TID PO Last administered on 13:24; Admin Dose 30 ML; Start 02/06/17 at 21:00 ALIVIA ALVAREZ February 09, 2017 18:21
--- NOTE | 2017-02-09 18:56 | CONS ---
Date/Time of Note Date/Time of Note DATE: 02/09/17 TIME: 18:55 Assessment/Plan Assessment/Plan Additional Assessment/Plan Assessment/Plan Additional Assessment/Plan IMPRESSION: 1. Decompensated cirrhosis of liver. 2. Alcoholic cirrhosis. 3. Ascites. 4. Renal failure, 5. History of polysubstance dependence in the past, in admission. 6. Anemia. 7. Thrombocytopenia. 8. Cholelithiasis. 9. Coagulopathy. 10. Ultrasound revealed gallstone and dilated biliary system 11. HIV positive Plan Correction of hyponatremia MRCP showed irregularity of the gallbladder wall. Bile duct was not visualized Continue present Patient will be referred to the tertiary care center for the evaluation of liver transplant Consultation Date/Type/Reason Admit Date/Time February 05, 2017 at 18:37 Initial Consult Date 02/06/17 Type of Consultation: NEPHROLOGy Referring Provider: CARL GRANT MD 24 HR Interval Summary Constitutional: no complaints Exam/Review of Systems Vital Signs Vitals Vital Signs Date Time Temp Pulse Resp B/P Pulse Ox O2 Delivery O2 Flow Rate FiO2 02/09/17 16:00 75 02/09/17 15:37 97.7 20 107/56 100 Intake and Output 02/08/17 02/08/17 02/09/17 15:00 23:00 07:00 Intake Total 300 ml 950 ml 350 ml Output Total 700 ml 825 ml Balance 300 ml 250 ml -475 ml Exam Constitutional: alert, oriented, well developed Psych: nl mood/affect, no complaints Head: atraumatic, normocephalic Eyes: EOMI, PERRL, nl conjunctiva, nl lids, nl sclera ENMT: nl external ears & nose, nl lips & teeth, nl nasal mucosa & septum Neck: non-tender, supple Respiratory: clear to auscultation, normal air movement Cardiovascular: nl pulses, regular rate and rhythm Gastrointestinal: nl liver, spleen, non-tender, soft Musculoskeletal: nl extremities to inspection, nl gait and stance Extremities: normal pulses Neurological: MAMMAL CONTROL AGENT II-XII intact, nl mental status, nl speech, nl strength Skin: nl turgor, No rash or lesions Lymph: nl lymph nodes Results Result Diagram: 02/09/17 0740 02/09/17 0740 Results 24 hrs Laboratory Tests Test 02/09/17 07:40 White Blood Count 9.8 Red Blood Count 2.67 L Hemoglobin 8.8 L Hematocrit 25.8 L Mean Corpuscular Volume 96.6 Mean Corpuscular Hemoglobin 33.0 Mean Corpuscular Hemoglobin Concent 34.1 Red Cell Distribution Width 16.9 H Platelet Count 53 L Mean Platelet Volume 11.5 H Neutrophils % 80.3 H Lymphocytes % 7.1 L Monocytes % 8.7 Eosinophils % 2.6 Basophils % 0.7 Nucleated Red Blood Cells % 0.0 Neutrophils # 7.9 H Lymphocytes # 0.7 L Monocytes # 0.9 Eosinophils # 0.3 Basophils # 0.1 Nucleated Red Blood Cells # 0.0 Sodium Level 128 L Potassium Level 4.5 Chloride Level 99 Carbon Dioxide Level 19 L Anion Gap 15 Blood Urea Nitrogen 22 H Creatinine 1.33 H Glucose Level 123 Calcium Level 8.8 Medications Medications Current Medications Piperacillin Sod/ Tazobactam Sod (Zosyn 3.375gm/ 100 ml (Pmx)) 100 ml @ 200 mls /hr Q8 IVPB Last administered on 02/09/17 13:24; Admin Dose 200 MLS/HR; Start 02/05/17 at 22:00 Multivitamins Therapeutic (Theragran) 1 tab DAILY PO Last administered on 09:13; Admin Dose 1 TAB; Start 02/06/17 at 09:00 Thiamine HCl (Vitamin B1) 100 mg DAILY PO Last administered on 02/09/17 09:13 ; Admin Dose 100 MG; Start 02/06/17 at 09:00 Furosemide (Lasix) 10 mg DAILY@06 PO Last administered on 02/09/17 06:26; Admin Dose 10 MG; Start 02/06/17 at 06:00 Lactulose (Enulose) 20 gm Q4 PRN PO CONSTIPATION; Start 02/06/17 at 00:00 Pantoprazole (Protonix Tab) 40 mg DAILY@06 PO Last administered on 02/09/17 06 :26; Admin Dose 40 MG; Start 02/06/17 at 06:00 Rifaximin (Xifaxan) 550 mg BID PO Last administered on 02/09/17 09:14; Admin Dose 550 MG; Start 02/06/17 at 09:00 Folic Acid (Folic Acid) 1 mg DAILY PO Last administered on 02/09/17 09:13; Admin Dose 1 MG; Start 02/06/17 at 09:00 Aripiprazole (Abilify) 1 mg HS PO Last administered on 02/08/17 20:50; Admin Dose 1 MG; Start 02/06/17 at 21:00 Morphine Sulfate (morphine) 2 mg Q3H PRN IV PAIN Last administered on 18:12; Admin Dose 2 MG; Start 02/06/17 at 01:00 Citric Acid/ Sodium Citrate (Bicitra) 30 ml TID PO Last administered on 13:24; Admin Dose 30 ML; Start 02/06/17 at 21:00 IGNACIA HERR MD February 09, 2017 18:56
[2017-02-09] MEDS: ARIPIPRAZOLE 2 MG TAB PO SCH (21:19)
[2017-02-09] MEDS: PROPRANOLOL 10 MG TAB PO SCH (22:10)
[2017-02-10] VITALS (14 sets, daily range): BP systolic 82–117; BP diastolic 53–71; PULSE 54–70; RESP 16–19
--- NOTE | 2017-02-10 00:17 | CONS ---
DATE OF ADMISSION: 02/05/2017 DATE OF CONSULTATION: 02/09/2017 REASON FOR CONSULTATION: Exertional chest pain, shortness of breath. REQUESTING PHYSICIAN: Carl Grant MD HISTORY OF PRESENT ILLNESS: Mr. Blankenship is a 56-year-old male with history of alcoholic cirrhosis, he patorenal syndrome, prior appendectomy, migraine headaches, ETOH abuse, hypertension, jaundice who i nitially presented to an outside hospital with complaints of abdominal pain, diarrhea, nausea, vomit ing. The patient was transferred to [facility] due to insurance reasons. Since a rrival at [facility], the patient has been evaluated by the GI services and additi onally by the renal services. The patient in evaluation has undergone a HIDA scan, which revealed n o definite visualization of the gallbladder, no evidence of common bile duct obstruction. An MRCP t hat revealed cirrhosis without definite evidence of focal hepatic lesions, small ascites, splenomega ly, cholelithiasis with irregular gallbladder wall thickening. A venous ultrasound revealed no evid ence of DVT. An abdominal ultrasound revealed coarsened hepatic echotexture suggestive liver surfac e nodularity, gallstones within distended gallbladder, mild gallbladder wall thickening. The patien t's electrocardiogram was most recent from the at [place] were notable for normal sinus rhythm, rate of 73 with sinus arrhythmia and isolated T-wave flattening in aVL. The patient, at this time, states he has generalized weakness, generalized of nausea, dizziness, and when he walks, does have e xertional chest tightness and shortness of breath. PAST MEDICAL HISTORY: As above in HPI with the patient additionally being HIV positive. As above i n HPI, as well as patient having a history of ____. MEDICATIONS CURRENTLY IN HOSPITAL: 1. Abilify 1 mg at bedtime. 2. Bicitra. 3. Theragran. 4. Rifaximin. 5. Folic acid. 6. Lasix 10 mg a day. 7. Protonix 40 mg daily. 8. Morphine p.r.n. 9. Lactulose p.r.n. 10. Zosyn IV. ALLERGIES: NO KNOWN DRUG ALLERGIES. SOCIAL HISTORY: Positive tobacco, positive ETOH abuse, history of possible illicit drug use. FAMILY HISTORY: No history of sudden cardiac or early CAD. REVIEW OF SYSTEMS: As above in HPI. CONSTITUTIONAL: No fevers, chills. PULMONARY: Shortness of breath. CARDIOVASCULAR: Exertional chest pain. GASTROINTESTINAL: Cirrhosis. GENITOURINARY: Renal failure. PSYCHIATRIC: Positive psychiatric history. NEUROLOGIC: Dizziness. PHYSICAL EXAMINATION: VITAL SIGNS: Temperature 97.7, blood pressure 107/56, pulse 77, respiratory rate 20, satting 100%. GENERAL: The patient is alert, awake. Complaints of dizziness, nausea. NECK: JVP approximately 9 cm water. CHEST: Fair air movement throughout. HEART: Regular rate and rhythm. Normal S1, S2, I/ systolic murmur, nondisplaced PMI. ABDOMEN: Positive bowel sounds, soft. Diffuse tenderness to palpation. EXTREMITIES: No pitting edema, 1+ pulses bilaterally, posterior tibial. LABORATORIES: As above in HPI, with most recent from today, sodium 128, potassium of 4.5, creatinin e 1.33, BUN 22. White blood count 9.8, hemoglobin 8.8, platelet count of 53. INR 3.17. IMAGING STUDIES: As above in HPI. No further imaging studies for my review at this time. ELECTROCARDIOGRAM: As above in HPI. No further electrocardiograms for my review at this time. IMPRESSION: 1. Exertional chest pain, assess for acute coronary syndrome. 2. Dyspnea on exertion, assess for congestive heart failure. 3. Abnormal electrocardiogram, assess for acute coronary syndrome. 4. Liver cirrhosis. 5. Nausea, vomiting. 6. ETOH abuse. 7. Polysubstance abuse. 8. Human immunodeficiency virus positivity. 9. Renal failure. 10. Hyponatremia. 11. Coagulopathy. 12. Anemia. 13. Thrombocytopenia. RECOMMENDATIONS: 1. At this time, would maintain the patient on telemetry monitoring to follow rhythm and rate contr ol closely. 2. Complete a rule out for myocardial infarction to assure the patient's chest pain, EKG, PR, histo ry of chronic nature and not due to any recent acute coronary syndrome, such as an acute myocardial infarction. 3. Consider low dose oral nitrates in this patient and possible nonselective beta karen for treat ment of chest pain and also for possible portal hypertension in the setting of liver cirrhosis. 4. Check a 2D echocardiogram to further assess patient's ejection fraction, wall motion, and major valve abnormalities. 5. Complete a rule out for myocardial infarction. 6. Continue to check serial EKGs to assess for any significant ongoing changes. 7. Continue all further ongoing GI evaluation and workup. 8. Continue the patient's daily Lasix following volume status closely. 9. Continue the patient's antibiotics and follow up all culture data. Thank you for allowing me to take part in the care of this patient. I will continue to follow along very closely with you. Further recommendations will be made as the patient progresses through his inpatient hospital clinical course. Dictated By: SHAY TORRES/MANJINDER Conf#: [id number] DID#: [id number] CC: CARL GRANT MD;*EndCC*
[2017-02-10 02:14] LABS: TROPONIN-I 0.037 ng/ml (0.00-0.12)
[2017-02-10 02:19] LABS: CK-MB 2.28 ng/ml (0.0-2.4)
[2017-02-10] MEDS: PIPER-TAZO 3.375 GM IV (PMX) 100 ML IVPB SCH ×3 (05:30→22:12)
[2017-02-10] MEDS: PANTOPRAZOLE (EC) 40 MG TAB PO SCH (05:31)
[2017-02-10] MEDS: FUROSEMIDE 20 MG TAB PO SCH (05:31)
[2017-02-10 07:15] LABS: ADD SCAN DIFF NO
[2017-02-10 07:21] LABS: ABNORMAL IP MESSAGE 1; BASOPHIL # 0.1 10^3/ul (0.0-0.1); BASOPHILS % 0.8 % (0.0-2.0); EOSINOPHILS # 0.4 10^3/ul (0.0-0.5); HEMATOCRIT 27.8 % (42.0-52.0); HEMOGLOBIN 9.6 g/dl (14.0-18.0); LYMPHOCYTES % 10.2 % (15.0-51.0); MEAN CORPUSCULAR HGB CONC 34.5 g/dl (32.0-37.0); MEAN CORPUSCULAR VOLUME 95.5 fl (82.0-101.0); MEAN PLATELET VOLUME 11.6 fl (7.4-10.4); MONOCYTE # 0.8 10^3/ul (0.3-0.9); MONOCYTES % 8.2 % (0.0-11.0); NEUTROPHIL # 7.4 10^3/ul (1.6-7.5); NEUTROPHILS % 76.2 % (39.0-77.0); RED BLOOD COUNT 2.91 10^6/ul (4.70-6.10); RED CELL DISTRIBUTION WIDTH 16.4 % (11.5-14.5); WHITE BLOOD COUNT 9.8 10^3/ul (4.8-10.8)
[2017-02-10 07:30] LABS: PLATELET COUNT 64 10^3/UL (140-415)
[2017-02-10 07:48] LABS: TROPONIN-I 0.045 ng/ml (0.00-0.12)
[2017-02-10 07:50] LABS: CK-MB 2.56 ng/ml (0.0-2.4)
--- NOTE | 2017-02-10 07:51 | RADRPT ---
PROCEDURE: XR Chest. CLINICAL INDICATION: Chest pain TECHNIQUE: A single AP view of the chest was obtained. COMPARISON: None. FINDINGS: No focal airspace opacification, pleural effusion or pneumothorax is seen. The cardiomediastinal si lhouette is within normal limits for size. The osseous structures are unremarkable. IMPRESSION: No radiographic evidence of acute cardiopulmonary disease. RPTAT: HH .Veronika Russell MD, MD Date Time Electronically viewed and signed by .Veronika Russell MD, on 02/10/2017 07:51 .G/
[2017-02-10 08:22] LABS: POTASSIUM 4.7 mmol/L (3.5-5.1)
[2017-02-10 08:25] LABS: CREATININE 1.2 mg/dl (0.61-1.24)
[2017-02-10 08:26] LABS: CALCIUM 8.8 mg/dl (8.4-10.2); HDL CHOLESTEROL 9 mg/dl (28-71); TRIGLYCERIDES 41 mg/dl (0-149)
[2017-02-10 08:30] LABS: CHOLESTEROL < 50 mg/dl (100-200)
[2017-02-10] MEDS: THIAMINE 100 MG TAB PO SCH (09:00)
[2017-02-10] MEDS: MULTIVITAMINS THERAPEUTIC TAB PO SCH (09:03)
[2017-02-10] MEDS: FOLIC ACID 1 MG TAB PO SCH (09:03)
[2017-02-10] MEDS: CITRIC ACID/SODIUM CITRATE 15 ML CUP PO SCH ×3 (09:03→20:34)
[2017-02-10] MEDS: RIFAXIMIN 550 MG TAB PO SCH ×2 (09:03→20:35)
[2017-02-10] MEDS: PROPRANOLOL 10 MG TAB PO SCH ×3 (09:04→20:33)
--- NOTE | 2017-02-10 09:38 | CONS ---
Date/Time of Note Date/Time of Note DATE: 02/10/17 TIME: 09:36 Assessment/Plan Assessment/Plan Chief Complaint/Hosp Course The patient is a 56-year-old male patient with a history of alcoholic liver cirrhosis, hemophilia, admitted with hepatorenal syndrome-nephrology. No active bleeding. Hematology consulted due to history of hemophilia and thrombocytopenia. # Thrombocytopenia, likely related to alcoholic liver cirrhosis and splenomegaly and HIV infection - platelet count 79 at [place], now stable at 50-60K. Continue to monitor, no evidence of bleeding - Transfuse < 10, < 50 if bleeding, otherwise monitor - HIV screen positive, patient denies as states that he was tested 30 days ago and was negative, however repeat HIV screen positive. Appreciate ID recs. - Hepatitis panel negative, unlikely DIC as prolongation of caogs and low fibrinogen likely related to liver disease. No need to give cryoprecipitate unless patient bleeding. - Abdominal US showed 1. Coarsened hepatic echotexture and suggested liver surface nodularity and mild common bile duct dilatation. - MRI Abdomen 02/08/17 showed 1. Cirrhosis without definite evidence of focal hepatic lesion. 2. Small ascites and splenomegaly. 3. Cholelithiasis with irregular gallbladder wall thickening may be related to chronic cholecystitis however cannot rule out underlying gallbladder mass lesion. 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 Kehinde Jimenez who informed me that he does not have a history of hemophilia but rather simply coagulopathy due to liver disease. However, the patient states that he was diagnosed in his 20s with hemophilia, prior to liver disease, diagnosed by Dr. Hu (now ) in [place]. 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 Transfuse < 8. - iron panel with Fe 109, TIBC low at 125, %87, ferritin 1250 consistent with anemia of chronic inflammation, B12/folate/TSH SNL, homocysteine elevated at 29.9; pending methylmalonic acid; LDH elevated, retic count inappropriately low ; haptoglobin < 15 (though likely low due to liver disease) Case management request for auth to be obtained for outpatient follow-up with me or Dr. Naya Dawson Problems: Consultation Date/Type/Reason Admit Date/Time February 05, 2017 at 18:37 Initial Consult Date 02/06/17 Type of Consultation: Hematology Referring Provider: CARL GRANT MD 24 HR Interval Summary Free Text/Dictation No changes from yesterday. Patient states that he is doing well. Exam/Review of Systems Vital Signs Vitals Vital Signs Date Time Temp Pulse Resp B/P Pulse Ox O2 Delivery O2 Flow Rate FiO2 02/10/17 08:18 63 02/10/17 07:45 98.0 18 111/65 100 02/10/17 05:22 Room Air Intake and Output 02/09/17 02/09/17 02/10/17 15:00 23:00 07:00 Intake Total 100 ml 960 ml 500 ml Output Total 600 ml 150 ml Balance 100 ml 360 ml 350 ml Exam Constitutional: alert, oriented, well developed, jaunduced Head: normocephalic Eyes: icteric ENMT: nl external ears & nose Neck: non-tender Respiratory: clear to auscultation Cardiovascular: nl pulses Gastrointestinal: distended, ascites Musculoskeletal: nl extremities to inspection Extremities: normal pulses, bruises Neurological: nl mental status, nl speech Results Result Diagram: 02/10/17 0636 02/10/17 0636 Results 24 hrs Laboratory Tests Test 02/10/17 01:25 02/10/17 06:36 Creatine Kinase 69 48 Creatine Kinase Index 3.3 5.3 Creatinine Kinase MB (Mass) 2.28 2.56 H Troponin I 0.037 0.045 White Blood Count 9.8 Red Blood Count 2.91 L Hemoglobin 9.6 L Hematocrit 27.8 L Mean Corpuscular Volume 95.5 Mean Corpuscular Hemoglobin 33.0 Mean Corpuscular Hemoglobin Concent 34.5 Red Cell Distribution Width 16.4 H Platelet Count 64 #L Mean Platelet Volume 11.6 H Neutrophils % 76.2 Lymphocytes % 10.2 L Monocytes % 8.2 Eosinophils % 4.0 Basophils % 0.8 Nucleated Red Blood Cells % 0.0 Neutrophils # 7.4 Lymphocytes # 1.0 Monocytes # 0.8 Eosinophils # 0.4 Basophils # 0.1 Nucleated Red Blood Cells # 0.0 Sodium Level 128 L Potassium Level 4.7 Chloride Level 97 Carbon Dioxide Level 19 L Anion Gap 17 H Blood Urea Nitrogen 28 H Creatinine 1.20 Glucose Level 96 Calcium Level 8.8 Triglycerides Level 41 Cholesterol Level < 50 L LDL Cholesterol, Calculated HDL Cholesterol 9 L Cholesterol/HDL Ratio Medications Medications Current Medications Piperacillin Sod/ Tazobactam Sod (Zosyn 3.375gm/ 100 ml (Pmx)) 100 ml @ 200 mls /hr Q8 IVPB Last administered on 02/10/17 05:30; Admin Dose 200 MLS/HR; Start 02/05/17 at 22:00 Multivitamins Therapeutic (Theragran) 1 tab DAILY PO Last administered on 09:03; Admin Dose 1 TAB; Start 02/06/17 at 09:00 Thiamine HCl (Vitamin B1) 100 mg DAILY PO Last administered on 02/09/17 09:13 ; Admin Dose 100 MG; Start 02/06/17 at 09:00 Furosemide (Lasix) 10 mg DAILY@06 PO Last administered on 02/10/17 05:31; Admin Dose 10 MG; Start 02/06/17 at 06:00 Lactulose (Enulose) 20 gm Q4 PRN PO CONSTIPATION; Start 02/06/17 at 00:00 Pantoprazole (Protonix Tab) 40 mg DAILY@06 PO Last administered on 02/10/17 05 :31; Admin Dose 40 MG; Start 02/06/17 at 06:00 Rifaximin (Xifaxan) 550 mg BID PO Last administered on 02/10/17 09:03; Admin Dose 550 MG; Start 02/06/17 at 09:00 Folic Acid (Folic Acid) 1 mg DAILY PO Last administered on 02/10/17 09:03; Admin Dose 1 MG; Start 02/06/17 at 09:00 Aripiprazole (Abilify) 1 mg HS PO Last administered on 02/09/17 21:19; Admin Dose 1 MG; Start 02/06/17 at 21:00 Morphine Sulfate (morphine) 2 mg Q3H PRN IV PAIN Last administered on 22:12; Admin Dose 2 MG; Start 02/06/17 at 01:00 Citric Acid/ Sodium Citrate (Bicitra) 30 ml TID PO Last administered on 09:03; Admin Dose 30 ML; Start 02/06/17 at 21:00 Propranolol HCl (Inderal) 10 mg TID PO Last administered on 02/10/17 09:04; Admin Dose 10 MG; Start 02/09/17 at 21:00 ABRAM HINDS MD February 10, 2017 09:38
--- NOTE | 2017-02-10 09:39 | CONS ---
Date/Time of Note Date/Time of Note DATE: 02/10/17 TIME: 09:37 Assessment/Plan Assessment/Plan Additional Assessment/Plan 1. Hyponatremia likely secondary to liver cirrhosis. 2. no heaptorenal syndrome 3. Acute kidney injury, likely secondary to prerenal azotemia in the setting of decompensated liver cirrhosis. 4. 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 5. History of recurrent ascites, status post last paracentesis done 3 weeks ago , 1.6 liters of fluid was removed. 6. Acute hyperkalemia, possibly secondary to Bactrim. PLAN: US of abdomen did not show ascites, Gallstones within the distended gallbladder and mild gallbladder wall thickening.mild CBD dilatation Na 128 today, pt is not a candidate for Tolvaptan due to elevated LFTs, will start demeclocycline 300mg po BID, tertiary care center referral for liver transplant evaluation HCO3 improving with bicitra MRCP showed liver cirrhosis with small ascites will follow up Consultation Date/Type/Reason Admit Date/Time February 05, 2017 at 18:37 Initial Consult Date 02/06/17 Type of Consultation: NEPHROLOGy Referring Provider: CARL GRANT MD 24 HR Interval Summary Free Text/Dictation Na remained stable around 128, Cr improving , Exam/Review of Systems Vital Signs Vitals Vital Signs Date Time Temp Pulse Resp B/P Pulse Ox O2 Delivery O2 Flow Rate FiO2 02/10/17 08:18 63 02/10/17 07:45 98.0 18 111/65 100 02/10/17 05:22 Room Air Intake and Output 02/09/17 02/09/17 02/10/17 14:59 22:59 06:59 Intake Total 100 ml 960 ml 500 ml Output Total 600 ml 150 ml Balance 100 ml 360 ml 350 ml Exam Constitutional: alert, oriented, well developed, jaunduced Head: normocephalic Eyes: icteric ENMT: nl external ears & nose Neck: non-tender Respiratory: clear to auscultation Cardiovascular: nl pulses Gastrointestinal: distended, ascites Musculoskeletal: nl extremities to inspection Extremities: normal pulses, bruises Neurological: nl mental status, nl speech Results Result Diagram: 02/10/17 0636 02/10/17 0636 Results 24 hrs Laboratory Tests Test 02/10/17 01:25 02/10/17 06:36 Creatine Kinase 69 48 Creatine Kinase Index 3.3 5.3 Creatinine Kinase MB (Mass) 2.28 2.56 H Troponin I 0.037 0.045 White Blood Count 9.8 Red Blood Count 2.91 L Hemoglobin 9.6 L Hematocrit 27.8 L Mean Corpuscular Volume 95.5 Mean Corpuscular Hemoglobin 33.0 Mean Corpuscular Hemoglobin Concent 34.5 Red Cell Distribution Width 16.4 H Platelet Count 64 #L Mean Platelet Volume 11.6 H Neutrophils % 76.2 Lymphocytes % 10.2 L Monocytes % 8.2 Eosinophils % 4.0 Basophils % 0.8 Nucleated Red Blood Cells % 0.0 Neutrophils # 7.4 Lymphocytes # 1.0 Monocytes # 0.8 Eosinophils # 0.4 Basophils # 0.1 Nucleated Red Blood Cells # 0.0 Sodium Level 128 L Potassium Level 4.7 Chloride Level 97 Carbon Dioxide Level 19 L Anion Gap 17 H Blood Urea Nitrogen 28 H Creatinine 1.20 Glucose Level 96 Calcium Level 8.8 Triglycerides Level 41 Cholesterol Level < 50 L LDL Cholesterol, Calculated HDL Cholesterol 9 L Cholesterol/HDL Ratio Medications Medications Current Medications Piperacillin Sod/ Tazobactam Sod (Zosyn 3.375gm/ 100 ml (Pmx)) 100 ml @ 200 mls /hr Q8 IVPB Last administered on 02/10/17 05:30; Admin Dose 200 MLS/HR; Start 02/05/17 at 22:00 Multivitamins Therapeutic (Theragran) 1 tab DAILY PO Last administered on 09:03; Admin Dose 1 TAB; Start 02/06/17 at 09:00 Thiamine HCl (Vitamin B1) 100 mg DAILY PO Last administered on 02/09/17 09:13 ; Admin Dose 100 MG; Start 02/06/17 at 09:00 Furosemide (Lasix) 10 mg DAILY@06 PO Last administered on 02/10/17 05:31; Admin Dose 10 MG; Start 02/06/17 at 06:00 Lactulose (Enulose) 20 gm Q4 PRN PO CONSTIPATION; Start 02/06/17 at 00:00 Pantoprazole (Protonix Tab) 40 mg DAILY@06 PO Last administered on 02/10/17 05 :31; Admin Dose 40 MG; Start 02/06/17 at 06:00 Rifaximin (Xifaxan) 550 mg BID PO Last administered on 02/10/17 09:03; Admin Dose 550 MG; Start 02/06/17 at 09:00 Folic Acid (Folic Acid) 1 mg DAILY PO Last administered on 02/10/17 09:03; Admin Dose 1 MG; Start 02/06/17 at 09:00 Aripiprazole (Abilify) 1 mg HS PO Last administered on 02/09/17 21:19; Admin Dose 1 MG; Start 02/06/17 at 21:00 Morphine Sulfate (morphine) 2 mg Q3H PRN IV PAIN Last administered on 22:12; Admin Dose 2 MG; Start 02/06/17 at 01:00 Citric Acid/ Sodium Citrate (Bicitra) 30 ml TID PO Last administered on 09:03; Admin Dose 30 ML; Start 02/06/17 at 21:00 Propranolol HCl (Inderal) 10 mg TID PO Last administered on 02/10/17 09:04; Admin Dose 10 MG; Start 02/09/17 at 21:00 ELLIOT PARRA MD February 10, 2017 09:39
[2017-02-10] MEDS ORDERED: DEMECLOCYCLINE 150 MG TAB PO ONE (10:00)
--- NOTE | 2017-02-10 11:11 | CONS ---
Date/Time of Note Date/Time of Note DATE: 02/10/17 TIME: 11:10 Assessment/Plan Assessment/Plan Additional Assessment/Plan IMPRESSION: 1. Decompensated cirrhosis of liver. 2. Alcoholic cirrhosis. 4. Renal failure, better 5. History of polysubstance dependence in the past, in admission. 6. Anemia. 7. Thrombocytopenia. 8. Cholelithiasis. 9. Coagulopathy. 10. Ultrasound revealed gallstone and dilated biliary system, no evidence of obstruction or bile duct stone 11. HIV positive Plan Correction of hyponatremia MRCP showed irregularity of the gallbladder wall. Bile duct was not visualized Continue present care Consultation Date/Type/Reason Admit Date/Time February 05, 2017 at 18:37 Initial Consult Date 02/06/17 Type of Consultation: Hematology Referring Provider: CARL GRANT MD 24 HR Interval Summary Constitutional: no complaints Exam/Review of Systems Vital Signs Vitals Vital Signs Date Time Temp Pulse Resp B/P Pulse Ox O2 Delivery O2 Flow Rate FiO2 02/10/17 08:18 63 02/10/17 07:45 98.0 18 111/65 100 02/10/17 05:22 Room Air Intake and Output 02/09/17 02/09/17 02/10/17 15:00 23:00 07:00 Intake Total 100 ml 960 ml 500 ml Output Total 600 ml 150 ml Balance 100 ml 360 ml 350 ml Exam Constitutional: alert, oriented, well developed Psych: nl mood/affect, no complaints Head: atraumatic, normocephalic Eyes: EOMI, PERRL, nl conjunctiva, nl lids, nl sclera ENMT: nl external ears & nose, nl lips & teeth, nl nasal mucosa & septum Neck: non-tender, supple Respiratory: clear to auscultation, normal air movement Cardiovascular: nl pulses, regular rate and rhythm Gastrointestinal: nl liver, spleen, non-tender, soft Musculoskeletal: nl extremities to inspection, nl gait and stance Extremities: normal pulses Neurological: TOWEL SORTER II-XII intact, nl mental status, nl speech, nl strength Skin: nl turgor, No rash or lesions Lymph: nl lymph nodes Results Result Diagram: 02/10/17 0636 02/10/17 0636 Results 24 hrs Laboratory Tests Test 02/10/17 01:25 02/10/17 06:36 Creatine Kinase 69 48 Creatine Kinase Index 3.3 5.3 Creatinine Kinase MB (Mass) 2.28 2.56 H Troponin I 0.037 0.045 White Blood Count 9.8 Red Blood Count 2.91 L Hemoglobin 9.6 L Hematocrit 27.8 L Mean Corpuscular Volume 95.5 Mean Corpuscular Hemoglobin 33.0 Mean Corpuscular Hemoglobin Concent 34.5 Red Cell Distribution Width 16.4 H Platelet Count 64 #L Mean Platelet Volume 11.6 H Neutrophils % 76.2 Lymphocytes % 10.2 L Monocytes % 8.2 Eosinophils % 4.0 Basophils % 0.8 Nucleated Red Blood Cells % 0.0 Neutrophils # 7.4 Lymphocytes # 1.0 Monocytes # 0.8 Eosinophils # 0.4 Basophils # 0.1 Nucleated Red Blood Cells # 0.0 Sodium Level 128 L Potassium Level 4.7 Chloride Level 97 Carbon Dioxide Level 19 L Anion Gap 17 H Blood Urea Nitrogen 28 H Creatinine 1.20 Glucose Level 96 Calcium Level 8.8 Triglycerides Level 41 Cholesterol Level < 50 L LDL Cholesterol, Calculated HDL Cholesterol 9 L Cholesterol/HDL Ratio Medications Medications Current Medications Piperacillin Sod/ Tazobactam Sod (Zosyn 3.375gm/ 100 ml (Pmx)) 100 ml @ 200 mls /hr Q8 IVPB Last administered on 02/10/17 05:30; Admin Dose 200 MLS/HR; Start 02/05/17 at 22:00 Multivitamins Therapeutic (Theragran) 1 tab DAILY PO Last administered on 09:03; Admin Dose 1 TAB; Start 02/06/17 at 09:00 Thiamine HCl (Vitamin B1) 100 mg DAILY PO Last administered on 02/09/17 09:13 ; Admin Dose 100 MG; Start 02/06/17 at 09:00 Furosemide (Lasix) 10 mg DAILY@06 PO Last administered on 02/10/17 05:31; Admin Dose 10 MG; Start 02/06/17 at 06:00 Lactulose (Enulose) 20 gm Q4 PRN PO CONSTIPATION; Start 02/06/17 at 00:00 Pantoprazole (Protonix Tab) 40 mg DAILY@06 PO Last administered on 02/10/17 05 :31; Admin Dose 40 MG; Start 02/06/17 at 06:00 Rifaximin (Xifaxan) 550 mg BID PO Last administered on 02/10/17 09:03; Admin Dose 550 MG; Start 02/06/17 at 09:00 Folic Acid (Folic Acid) 1 mg DAILY PO Last administered on 02/10/17 09:03; Admin Dose 1 MG; Start 02/06/17 at 09:00 Aripiprazole (Abilify) 1 mg HS PO Last administered on 02/09/17 21:19; Admin Dose 1 MG; Start 02/06/17 at 21:00 Morphine Sulfate (morphine) 2 mg Q3H PRN IV PAIN Last administered on 22:12; Admin Dose 2 MG; Start 02/06/17 at 01:00 Citric Acid/ Sodium Citrate (Bicitra) 30 ml TID PO Last administered on 09:03; Admin Dose 30 ML; Start 02/06/17 at 21:00 Propranolol HCl (Inderal) 10 mg TID PO Last administered on 02/10/17 09:04; Admin Dose 10 MG; Start 02/09/17 at 21:00 Demeclocycline HCl (Declomycin) 300 mg BID PO ; Start 02/10/17 at 21:00 IGNACIA HERR MD February 10, 2017 11:11
[2017-02-10 12:36] LABS: CK-MB 2.42 ng/ml (0.0-2.4)
[2017-02-10 12:38] LABS: TROPONIN-I 0.027 ng/ml (0.00-0.12)
--- NOTE | 2017-02-10 15:34 | CONS ---
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 - Records from [facility] were reviewed - Awaiting further microbiology/serology: procalcitonin (in process), blood cxs (negative to date) - Complete short course of empiric Zosyn today (02/05/2017-02/10/2017) Management d/w Pt, MICHELLE Regan and Dr. Ryan. Problems: Consultation Date/Type/Reason Admit Date/Time February 05, 2017 at 18:37 Initial Consult Date 02/07/17 Type of Consultation: Infectious Disease Referring Provider: CARL GRANT MD 24 HR Interval Summary Free Text/Dictation C/o intermittent pain to LUE (from elbow up to shoulder area). Reports "minor improvement" in overall status. Still has generalized weakness requiring FWW. No n/v. + loose stools related to lactulose. Exam/Review of Systems Vital Signs Vitals Vital Signs Date Time Temp Pulse Resp B/P Pulse Ox O2 Delivery O2 Flow Rate FiO2 02/10/17 13:34 55 02/10/17 11:50 97.4 18 117/56 100 02/10/17 05:22 Room Air Intake and Output 02/09/17 02/09/17 02/10/17 15:00 23:00 07:00 Intake Total 100 ml 960 ml 500 ml Output Total 600 ml 150 ml Balance 100 ml 360 ml 350 ml Exam Constitutional: alert, oriented, other (debilitated), well developed Head: atraumatic, normocephalic Eyes: icteric Neck: supple Cardiovascular: regular rate and rhythm, systolic murmur Gastrointestinal: ascites, distended, soft Extremities: edema Neurological: other (tremors on LUE) Skin: ecchymosis (scattered on BLE), other (Jaundiced) Results Result Diagram: 02/10/17 0636 02/10/17 0636 Results 24 hrs Laboratory Tests Test 02/10/17 01:25 02/10/17 06:36 02/10/17 12:00 Creatine Kinase 69 48 40 Creatine Kinase Index 3.3 5.3 6.1 Creatinine Kinase MB (Mass) 2.28 2.56 H 2.42 H Troponin I 0.037 0.045 0.027 White Blood Count 9.8 Red Blood Count 2.91 L Hemoglobin 9.6 L Hematocrit 27.8 L Mean Corpuscular Volume 95.5 Mean Corpuscular Hemoglobin 33.0 Mean Corpuscular Hemoglobin Concent 34.5 Red Cell Distribution Width 16.4 H Platelet Count 64 #L Mean Platelet Volume 11.6 H Neutrophils % 76.2 Lymphocytes % 10.2 L Monocytes % 8.2 Eosinophils % 4.0 Basophils % 0.8 Nucleated Red Blood Cells % 0.0 Neutrophils # 7.4 Lymphocytes # 1.0 Monocytes # 0.8 Eosinophils # 0.4 Basophils # 0.1 Nucleated Red Blood Cells # 0.0 Sodium Level 128 L Potassium Level 4.7 Chloride Level 97 Carbon Dioxide Level 19 L Anion Gap 17 H Blood Urea Nitrogen 28 H Creatinine 1.20 Glucose Level 96 Calcium Level 8.8 Triglycerides Level 41 Cholesterol Level < 50 L LDL Cholesterol, Calculated HDL Cholesterol 9 L Cholesterol/HDL Ratio Medications Medications Current Medications Piperacillin Sod/ Tazobactam Sod (Zosyn 3.375gm/ 100 ml (Pmx)) 100 ml @ 200 mls /hr Q8 IVPB Last administered on 02/10/17 15:00; Admin Dose 200 MLS/HR; Start 02/05/17 at 22:00 Multivitamins Therapeutic (Theragran) 1 tab DAILY PO Last administered on 09:03; Admin Dose 1 TAB; Start 02/06/17 at 09:00 Thiamine HCl (Vitamin B1) 100 mg DAILY PO Last administered on 02/09/17 09:13 ; Admin Dose 100 MG; Start 02/06/17 at 09:00 Furosemide (Lasix) 10 mg DAILY@06 PO Last administered on 02/10/17 05:31; Admin Dose 10 MG; Start 02/06/17 at 06:00 Lactulose (Enulose) 20 gm Q4 PRN PO CONSTIPATION; Start 02/06/17 at 00:00 Pantoprazole (Protonix Tab) 40 mg DAILY@06 PO Last administered on 02/10/17 05 :31; Admin Dose 40 MG; Start 02/06/17 at 06:00 Rifaximin (Xifaxan) 550 mg BID PO Last administered on 02/10/17 09:03; Admin Dose 550 MG; Start 02/06/17 at 09:00 Folic Acid (Folic Acid) 1 mg DAILY PO Last administered on 02/10/17 09:03; Admin Dose 1 MG; Start 02/06/17 at 09:00 Aripiprazole (Abilify) 1 mg HS PO Last administered on 02/09/17 21:19; Admin Dose 1 MG; Start 02/06/17 at 21:00 Morphine Sulfate (morphine) 2 mg Q3H PRN IV PAIN Last administered on 22:12; Admin Dose 2 MG; Start 02/06/17 at 01:00 Citric Acid/ Sodium Citrate (Bicitra) 30 ml TID PO Last administered on 14:59; Admin Dose 30 ML; Start 02/06/17 at 21:00 Propranolol HCl (Inderal) 10 mg TID PO Last administered on 02/10/17 15:00; Admin Dose 10 MG; Start 02/09/17 at 21:00 Demeclocycline HCl (Declomycin) 300 mg BID PO ; Start 02/10/17 at 21:00 JANKI YOUNGBLOOD NP February 10, 2017 15:34
[2017-02-10] MEDS: morphine 2 MG INJ IV PRN (17:04)
--- NOTE | 2017-02-10 17:38 | RADRPT ---
Vent Rate: 65 bpm RR Interval: 0 msec KS Interval: 156 msec QRS Duration: 96 msec QT Interval: 468 msec QTC Interval: 486 msec P-R-T Lilly: 64 - 27 - 40 degrees Normal sinus rhythm Minimal voltage criteria for LVH, may be normal variant Septal infarct , age undetermined Abnormal ECG Electronically Signed By: Meir Graham [id number]
--- NOTE | 2017-02-10 18:09 | PN ---
Date/Time of Note Date/Time of Note DATE: 02/10/17 TIME: 18:06 Assessment/Plan VTE Prophylaxis VTE Prophylaxis Intervention: other Lines/Catheters [facility] Assessment/Plan Assessment/Plan - Liver cirrhosis. Dr. Zelaya is following in cart in gastroenterology consultation. - Ascites secondary to liver cirrhosis. - Hepatic encephalopathy. Continue lactulose and rifaximin. Monitor ammonia level. - Acute kidney injury, rule out hepatorenal syndrome. Dr. Robles is following in nephrology consultation. - Human immunodeficiency virus positive status. Dr. Ryan is following in infectious disease consultation. - Thrombocytopenia secondary to alcoholic liver cirrhosis and possible human immunodeficiency virus. Dr. Cabral is following in hematology consultation. - Microcytic anemia. Status post transfusion, continue to monitor hemoglobin and hematocrit. - Coagulopathy. - Cholelithiasis. - Hyponatremia Further recommendations based on clinical course. Plan of care discussed with Dr. James. Subjective 24 Hr Interval Summary Free Text/Dictation walking with PT, nad, afebrile, no acute issues reported overnight, dw staff. Eyes: no complaints ENT: no complaints Respiratory: no complaints Cardiovascular: no complaints Gastrointestinal: pain Genitourinary: no complaints Musculoskeletal: no complaints Skin: no complaints Exam/Review of Systems Vital Signs Vitals Vital Signs Date Time Temp Pulse Resp B/P Pulse Ox O2 Delivery O2 Flow Rate FiO2 02/10/17 16:11 61 02/10/17 15:54 97.5 18 82/53 100 02/10/17 05:22 Room Air Intake and Output 02/09/17 02/09/17 02/10/17 15:00 23:00 07:00 Intake Total 100 ml 960 ml 500 ml Output Total 600 ml 150 ml Balance 100 ml 360 ml 350 ml Exam Constitutional: alert, oriented, well developed Psych: no complaints Head: normocephalic Eyes: EOMI, icteric ENMT: nl external ears & nose Neck: non-tender Respiratory: diminished breath sounds, normal air movement Cardiovascular: nl pulses, regular rate and rhythm Gastrointestinal: ascites, soft Musculoskeletal: nl extremities to inspection Extremities: normal pulses Neurological: nl mental status, nl speech Skin: other Lymph: nontender Results Result Diagram: 02/10/17 0636 02/10/17 0636 Results 24 hrs Laboratory Tests Test 02/10/17 01:25 02/10/17 06:36 02/10/17 12:00 Creatine Kinase 69 48 40 Creatine Kinase Index 3.3 5.3 6.1 Creatinine Kinase MB (Mass) 2.28 2.56 H 2.42 H Troponin I 0.037 0.045 0.027 White Blood Count 9.8 Red Blood Count 2.91 L Hemoglobin 9.6 L Hematocrit 27.8 L Mean Corpuscular Volume 95.5 Mean Corpuscular Hemoglobin 33.0 Mean Corpuscular Hemoglobin Concent 34.5 Red Cell Distribution Width 16.4 H Platelet Count 64 #L Mean Platelet Volume 11.6 H Neutrophils % 76.2 Lymphocytes % 10.2 L Monocytes % 8.2 Eosinophils % 4.0 Basophils % 0.8 Nucleated Red Blood Cells % 0.0 Neutrophils # 7.4 Lymphocytes # 1.0 Monocytes # 0.8 Eosinophils # 0.4 Basophils # 0.1 Nucleated Red Blood Cells # 0.0 Sodium Level 128 L Potassium Level 4.7 Chloride Level 97 Carbon Dioxide Level 19 L Anion Gap 17 H Blood Urea Nitrogen 28 H Creatinine 1.20 Glucose Level 96 Calcium Level 8.8 Triglycerides Level 41 Cholesterol Level < 50 L LDL Cholesterol, Calculated HDL Cholesterol 9 L Cholesterol/HDL Ratio Medications Medications Current Medications Piperacillin Sod/ Tazobactam Sod (Zosyn 3.375gm/ 100 ml (Pmx)) 100 ml @ 200 mls /hr Q8 IVPB Last administered on 02/10/17 15:00; Admin Dose 200 MLS/HR; Start 02/05/17 at 22:00 Multivitamins Therapeutic (Theragran) 1 tab DAILY PO Last administered on 09:03; Admin Dose 1 TAB; Start 02/06/17 at 09:00 Thiamine HCl (Vitamin B1) 100 mg DAILY PO Last administered on 02/09/17 09:13 ; Admin Dose 100 MG; Start 02/06/17 at 09:00 Furosemide (Lasix) 10 mg DAILY@06 PO Last administered on 02/10/17 05:31; Admin Dose 10 MG; Start 02/06/17 at 06:00 Lactulose (Enulose) 20 gm Q4 PRN PO CONSTIPATION; Start 02/06/17 at 00:00 Pantoprazole (Protonix Tab) 40 mg DAILY@06 PO Last administered on 02/10/17 05 :31; Admin Dose 40 MG; Start 02/06/17 at 06:00 Rifaximin (Xifaxan) 550 mg BID PO Last administered on 02/10/17 09:03; Admin Dose 550 MG; Start 02/06/17 at 09:00 Folic Acid (Folic Acid) 1 mg DAILY PO Last administered on 02/10/17 09:03; Admin Dose 1 MG; Start 02/06/17 at 09:00 Aripiprazole (Abilify) 1 mg HS PO Last administered on 02/09/17 21:19; Admin Dose 1 MG; Start 02/06/17 at 21:00 Morphine Sulfate (morphine) 2 mg Q3H PRN IV PAIN Last administered on 17:04; Admin Dose 2 MG; Start 02/06/17 at 01:00 Citric Acid/ Sodium Citrate (Bicitra) 30 ml TID PO Last administered on 14:59; Admin Dose 30 ML; Start 02/06/17 at 21:00 Propranolol HCl (Inderal) 10 mg TID PO Last administered on 02/10/17 15:00; Admin Dose 10 MG; Start 02/09/17 at 21:00 Demeclocycline HCl (Declomycin) 300 mg BID PO ; Start 02/10/17 at 21:00 DAFNE LECHUGA February 10, 2017 18:09 DAFNE LECHUGA February 10, 2017 18:09
--- NOTE | 2017-02-10 18:10 | PN ---
Date/Time of Note Date/Time of Note DATE: 02/06/17 TIME: 10:34 Assessment/Plan VTE Prophylaxis VTE Prophylaxis Intervention: other Lines/Catheters IV Catheter Type (from Nrsg): Peripheral IV Assessment/Plan Assessment/Plan Hepatorenal syndrome -Per nephrology and GI -Alcoholic liver Cirrhosis with transaminitis -GI consult-Dr. Zelaya notified - Hyponatremia - 1/2 NS AT 50 cc per Hr - Hyperkalemia - sp Kayexalate at Lei - Stat K level- fu - am Labs -Bilateral lower extremity pain - negative DVT - Jaundice - Acute Renal Failure-monitor labs - per Dr. Hilton Robles in nephrology consult - renal US wnl - Hemophilia - Thrombocytopenia-no obvious bleeding noted - Hematology consult- Dr HINDS notified -We will get PT PTT INR -Coagulopathy secondary to thrombocytopenia - Hypertension - Ascites- tapped almost 4 weeks ago , 1.6 L removed per patient. - Renal US showed mild US -Discussed with Dr. Robles, plan for ultrasound-guided paracentesis tomorrow -pain meds -Cachexia -Dietary consult Patient is not allergic to Spironolactone, he stated that his doctor does want him to take this medication so he is not allergic to any medicine. Further recommendations based on patient's clinical course . Plan of care Dw Dr James/staff, patient. Subjective 24 Hr Interval Summary Free Text/Dictation sleeping, easily awakens , denies chest pain, shortness of breath, dw staff- no new issues reported overnight. Respiratory: no complaints Cardiovascular: no complaints Gastrointestinal: pain Musculoskeletal: no complaints Skin: no complaints Exam/Review of Systems Vital Signs Vitals Vital Signs Date Time Temp Pulse Resp B/P Pulse Ox O2 Delivery O2 Flow Rate FiO2 02/06/17 08:06 97 02/06/17 07:48 97.8 16 113/63 100 Intake and Output 02/05/17 02/05/17 02/06/17 15:00 23:00 07:00 Intake Total 350 ml Balance 350 ml Exam Constitutional: alert, oriented, well developed Eyes: EOMI, icteric Neck: supple Respiratory: clear to auscultation, normal air movement Cardiovascular: nl pulses, regular rate and rhythm Gastrointestinal: ascites, soft Musculoskeletal: nl extremities to inspection Extremities: normal pulses Neurological: nl mental status, nl speech Skin: nl turgor Lymph: nontender Results Result Diagram: 02/06/17 0500 Results 24 hrs Laboratory Tests Test 02/05/17 21:00 02/06/17 05:00 02/06/17 05:46 02/06/17 06:54 Prothrombin Time 29.2 H Prothrombin Time Ratio 2.3 INR International Normalized Ratio 2.72 Activated Partial Thromboplast Time 50.3 H Ammonia 36 H Sodium Level 129 L Potassium Level 5.5 H Chloride Level 103 Carbon Dioxide Level 14 L Anion Gap 18 H Blood Urea Nitrogen 29 H Creatinine 1.42 H Glucose Level 88 Calcium Level 9.7 Total Bilirubin 10.3 H Direct Bilirubin 6.80 H Indirect Bilirubin 3.5 H Aspartate Amino Transf (AST/SGOT) 120 H Alanine Aminotransferase (ALT/SGPT) 58 Alkaline Phosphatase 231 H Total Protein 8.7 H Albumin 3.1 L Globulin 5.60 H Albumin/Globulin Ratio 0.55 Iron Level 123 Total Iron Binding Capacity 133 L Percent Iron Saturation 92 H Hemoglobin A1c Phosphorus Level 3.8 Magnesium Level 2.0 Triglycerides Level 36 Cholesterol Level < 50 L LDL Cholesterol, Calculated HDL Cholesterol 9 L Cholesterol/HDL Ratio Lipase 644 H Medications Medications Current Medications Sodium Chloride 1,000 ml @ 50 mls/hr Q20H IV Last administered on 02/05/17 23 :00; Admin Dose 50 MLS/HR; Start 02/05/17 at 20:00 Piperacillin Sod/ Tazobactam Sod (Zosyn 3.375gm/ 100 ml (Pmx)) 100 ml @ 200 mls /hr Q8 IVPB Last administered on 02/06/17 00:00; Admin Dose 200 MLS/HR; Start 02/05/17 at 22:00 Multivitamins Therapeutic (Theragran) 1 tab DAILY PO Last administered on 09:23; Admin Dose 1 TAB; Start 02/06/17 at 09:00 Thiamine HCl (Vitamin B1) 100 mg DAILY PO Last administered on 02/06/17 09:23 ; Admin Dose 100 MG; Start 02/06/17 at 09:00 Furosemide (Lasix) 10 mg DAILY@06 PO Last administered on 02/06/17 06:34; Admin Dose 10 MG; Start 02/06/17 at 06:00 Lactulose (Enulose) 20 gm Q4 PRN PO CONSTIPATION; Start 02/06/17 at 00:00 Pantoprazole (Protonix Tab) 40 mg DAILY@06 PO Last administered on 02/06/17 06 :34; Admin Dose 40 MG; Start 02/06/17 at 06:00 Rifaximin (Xifaxan) 550 mg BID PO Last administered on 02/06/17 09:23; Admin Dose 550 MG; Start 02/06/17 at 09:00 Trimethoprim/ Sulfamethoxazole (Bactrim (Ds)) 1 tab Q12 PO Last administered on 02/06/17 09:23; Admin Dose 1 TAB; Start 02/06/17 at 09:00 Folic Acid (Folic Acid) 1 mg DAILY PO Last administered on 02/06/17 09:23; Admin Dose 1 MG; Start 02/06/17 at 09:00 Aripiprazole (Abilify) 1 mg HS PO ; Start 02/06/17 at 21:00 Morphine Sulfate (morphine) 2 mg Q3H PRN IV PAIN; Start 02/06/17 at 01:00 DAFNE LECHUGA February 06, 2017 10:48
[2017-02-10] MEDS ORDERED: FOLI-49 PO (18:46)
[2017-02-10] MEDS ORDERED: FURO20TA3 PO (18:46)
[2017-02-10] MEDS ORDERED: ARIP1SOL2 PO (19:00)
[2017-02-10] MEDS ORDERED: SULF1TAB31 PO (19:00)
[2017-02-10] MEDS ORDERED: THIA100T10 PO (19:00)
[2017-02-10] MEDS ORDERED: LACT10SO5 PO (19:00)
[2017-02-10] MEDS ORDERED: PANT40TA4 PO (19:00)
--- NOTE | 2017-02-10 20:17 | CONS ---
Date/Time of Note Date/Time of Note DATE: 02/10/17 TIME: 20:13 Assessment/Plan Assessment/Plan Chief Complaint/Hosp Course IMPRESSION: 1. Exertional chest pain, assess for acute coronary syndrome.-negative troponin x 3 2. Dyspnea on exertion, assess for congestive heart failure. 3. Abnormal electrocardiogram, assess for acute coronary syndrome. 4. Liver cirrhosis. 5. Nausea, vomiting. 6. ETOH abuse. 7. Polysubstance abuse. 8. Human immunodeficiency virus positivity. 9. Renal failure. 10. Hyponatremia. 11. Coagulopathy. 12. Anemia. 13. Thrombocytopenia. REcc: -Tele -Continue abx's and f/u cx data -Will f/u echo -Check BNP and continue gentle lasix diuresis -Continue low dose propranolol as tolerated only -Continue PPI Problems: Consultation Date/Type/Reason Admit Date/Time February 05, 2017 at 18:37 Initial Consult Date 02/07/17 Type of Consultation: Cardiology Referring Provider: CARL GRANT MD Exam/Review of Systems Vital Signs Vitals Vital Signs Date Time Temp Pulse Resp B/P Pulse Ox O2 Delivery O2 Flow Rate FiO2 02/10/17 20:10 97.5 57 17 84/53 100 02/10/17 05:22 Room Air Intake and Output 02/09/17 02/09/17 02/10/17 15:00 23:00 07:00 Intake Total 100 ml 960 ml 500 ml Output Total 600 ml 150 ml Balance 100 ml 360 ml 350 ml Exam Review of Systems: CONSTITUTIONAL: No fevers, chills. PULMONARY: mild sob CARDIOVASCULAR: No chest pain/palpitations GASTROINTESTINAL: No nausea/vomiting. GENITOURINARY: No hematuria/dysuria. MUSCULOSKELETAL: No myagias/arthalgias. PSYCHIATRIC: The patient denies depression. NEUROLOGIC: No weakness Constitutional: alert Psych: no complaints Head: normocephalic ENMT: mucosa pink and moist Neck: jvd (9 cm water), supple Respiratory: diminished breath sounds (at bases/B) Cardiovascular: regular rate and rhythm Gastrointestinal: non-tender, soft Musculoskeletal: muscle tone (normal) Extremities: edema (none) Neurological: other (No focal deficits) Results Result Diagram: 02/10/17 0636 02/10/17 0636 Results 24 hrs Laboratory Tests Test 02/10/17 01:25 02/10/17 06:36 02/10/17 12:00 Creatine Kinase 69 48 40 Creatine Kinase Index 3.3 5.3 6.1 Creatinine Kinase MB (Mass) 2.28 2.56 H 2.42 H Troponin I 0.037 0.045 0.027 White Blood Count 9.8 Red Blood Count 2.91 L Hemoglobin 9.6 L Hematocrit 27.8 L Mean Corpuscular Volume 95.5 Mean Corpuscular Hemoglobin 33.0 Mean Corpuscular Hemoglobin Concent 34.5 Red Cell Distribution Width 16.4 H Platelet Count 64 #L Mean Platelet Volume 11.6 H Neutrophils % 76.2 Lymphocytes % 10.2 L Monocytes % 8.2 Eosinophils % 4.0 Basophils % 0.8 Nucleated Red Blood Cells % 0.0 Neutrophils # 7.4 Lymphocytes # 1.0 Monocytes # 0.8 Eosinophils # 0.4 Basophils # 0.1 Nucleated Red Blood Cells # 0.0 Sodium Level 128 L Potassium Level 4.7 Chloride Level 97 Carbon Dioxide Level 19 L Anion Gap 17 H Blood Urea Nitrogen 28 H Creatinine 1.20 Glucose Level 96 Calcium Level 8.8 Triglycerides Level 41 Cholesterol Level < 50 L LDL Cholesterol, Calculated HDL Cholesterol 9 L Cholesterol/HDL Ratio Medications Medications Current Medications Piperacillin Sod/ Tazobactam Sod (Zosyn 3.375gm/ 100 ml (Pmx)) 100 ml @ 200 mls /hr Q8 IVPB Last administered on 02/10/17 15:00; Admin Dose 200 MLS/HR; Start 02/05/17 at 22:00 Multivitamins Therapeutic (Theragran) 1 tab DAILY PO Last administered on 09:03; Admin Dose 1 TAB; Start 02/06/17 at 09:00 Thiamine HCl (Vitamin B1) 100 mg DAILY PO Last administered on 02/09/17 09:13 ; Admin Dose 100 MG; Start 02/06/17 at 09:00 Furosemide (Lasix) 10 mg DAILY@06 PO Last administered on 02/10/17 05:31; Admin Dose 10 MG; Start 02/06/17 at 06:00 Lactulose (Enulose) 20 gm Q4 PRN PO CONSTIPATION; Start 02/06/17 at 00:00 Pantoprazole (Protonix Tab) 40 mg DAILY@06 PO Last administered on 02/10/17 05 :31; Admin Dose 40 MG; Start 02/06/17 at 06:00 Rifaximin (Xifaxan) 550 mg BID PO Last administered on 02/10/17 09:03; Admin Dose 550 MG; Start 02/06/17 at 09:00 Folic Acid (Folic Acid) 1 mg DAILY PO Last administered on 02/10/17 09:03; Admin Dose 1 MG; Start 02/06/17 at 09:00 Aripiprazole (Abilify) 1 mg HS PO Last administered on 02/09/17 21:19; Admin Dose 1 MG; Start 02/06/17 at 21:00 Morphine Sulfate (morphine) 2 mg Q3H PRN IV PAIN Last administered on 17:04; Admin Dose 2 MG; Start 02/06/17 at 01:00 Citric Acid/ Sodium Citrate (Bicitra) 30 ml TID PO Last administered on 14:59; Admin Dose 30 ML; Start 02/06/17 at 21:00 Propranolol HCl (Inderal) 10 mg TID PO Last administered on 02/10/17 15:00; Admin Dose 10 MG; Start 02/09/17 at 21:00 Demeclocycline HCl (Declomycin) 300 mg BID PO ; Start 02/10/17 at 21:00 SHAY COTTRELL February 10, 2017 20:17
[2017-02-10] MEDS: DEMECLOCYCLINE 150 MG TAB PO SCH (20:34)
[2017-02-10] MEDS: ARIPIPRAZOLE 2 MG TAB PO SCH (20:34)
--- NOTE | 2017-02-10 20:35 | RADRPT ---
Echocardiogram Report Patient Name: BATSHEVA LAZAR Gender: Male Date: 1960 Study Date: 10-Feb-2017 Mental Hygienist: Sonny Ewing [facility] Location: 5545 Ref. Physician: ALIVIA ALVAREZ Quality: Good Procedures: Transthoracic echocardiogram with complete 2D, M-Mode, and doppler examination. Indications: Chest Pain. 2D/M Mode Doppler Measurement Value Normal Ranges Measurement Value Normal Ranges LVIDd 2D 4.9 3.5 - 5.6 cm AV Peak Dante 2.5 m/sec LVIDs 2D 2.6 2.1 - 4.1 cm AV Peak PG 24.4 mmHg LVPWd 2D 1.0 0.6 - 1.1 cm MV E Peak Dante 0.6 m/sec IVSd 2D 0.9 0.6 - 1.1 cm MV A Peak Dante 0.7 m/sec AoR Diam 2D 3.1 2.0 - 3.7 cm MV E/A 0.8 EDV 2D 114.5 cm3 MV Decel Time 290 msec ESV 2D 17.9 cm3 MV Decel [place] 2 LA Dimen 2D 3.6 2.3 - 4.0 cm MV E/A 0.8 TR Peak Dante 1.7 m/sec TR Peak PG 11.8 mmHg RVSP 15.0 mmHg Findings Left Ventricle: Hyperdynamic left ventricular systolic function. Normal left ventricular cavity size. Normal left ventricular wall thickness. Ejection fraction is visually estimated at >65 %. Tissue Doppler/Mitral Doppler indices are consistent with impaired relaxation (Stage I diastolic dysfunction). Resting left ventricular outflow tract velocity 2.65 m/sec. Resting left ventricular outflow tract gradient 28.0 mmHg. Velocity4.07 m/sec. Max PG66.20 mmHg. Right Ventricle: Normal right ventricular size. Normal right ventricular systolic function. Left Atrium: The left atrium is normal in size. Right Atrium: The right atrium is normal in size. Mitral Valve: Mild mitral leaflet calcification. Mild mitral annular calcification. Trace mitral regurgitation. Aortic Valve: Normal appearance of the aortic valve. No significant aortic stenosis or insufficiency. Tricuspid Valve: Normal appearance of the tricuspid valve. Estimated peak PA systolic pressure 15 mmHg. There is trace tricuspid regurgitation. Pulmonic Valve: Normal pulmonic valve appearance. Pericardium: Normal pericardium with no significant pericardial effusion. Aorta: Normal aortic root. IVC: Normal size and normal respiratory collapse consistent with normal right atrial pressure. Conclusions 1.Hyperdynamic left ventricular systolic function. Normal left ventricular cavity size. Normal left ventricular wall thickness. Ejection fraction is visually estimated at >65 %. Tissue Doppler/Mitral Doppler indices are consistent with impaired relaxation (Stage I diastolic dysfunction). Resting left ventricular outflow tract velocity 2.65 m/sec. Resting left ventricular outflow tract gradient 28.0 mmHg. Velocity4.07 m/sec. Max PG66.20 mmHg. 2.Mild mitral leaflet calcification. Mild mitral annular calcification. Trace mitral regurgitation. 3.Normal appearance of the tricuspid valve. Estimated peak PA systolic pressure 15 mmHg. There is trace tricuspid regurgitation. Electronically Signed By: Jass Urrutia 10-Feb-2017 20:35:12 -0700 Patient Name: BATSHEVA LAZAR Study Date: 10-Feb-2017 [id number]
[2017-02-11] VITALS (11 sets, daily range): BP systolic 74–118; BP diastolic 37–69; PULSE 58–67; RESP 16–18
[2017-02-11] MEDS: PANTOPRAZOLE (EC) 40 MG TAB PO SCH (05:09)
[2017-02-11] MEDS: PIPER-TAZO 3.375 GM IV (PMX) 100 ML IVPB SCH (05:09)
[2017-02-11] MEDS: FUROSEMIDE 20 MG TAB PO SCH (05:13)
[2017-02-11 07:42] LABS: ADD SCAN DIFF NO
[2017-02-11 07:52] LABS: ABNORMAL IP MESSAGE 1; BASOPHIL # 0.1 10^3/ul (0.0-0.1); BASOPHILS % 0.8 % (0.0-2.0); EOSINOPHILS # 0.5 10^3/ul (0.0-0.5); HEMATOCRIT 29.2 % (42.0-52.0); HEMOGLOBIN 10.2 g/dl (14.0-18.0); LYMPHOCYTES # 1.1 10^3/ul (0.8-2.9); LYMPHOCYTES % 9.5 % (15.0-51.0); MEAN CORPUSCULAR HEMOGLOBIN 33.1 pg (29.0-33.0); MEAN CORPUSCULAR HGB CONC 34.9 g/dl (32.0-37.0); MEAN CORPUSCULAR VOLUME 94.8 fl (82.0-101.0); MEAN PLATELET VOLUME 12.3 fl (7.4-10.4); MONOCYTE # 0.9 10^3/ul (0.3-0.9); MONOCYTES % 7.7 % (0.0-11.0); NEUTROPHIL # 9.2 10^3/ul (1.6-7.5); NEUTROPHILS % 77.2 % (39.0-77.0); PLATELET COUNT 65 10^3/UL (140-415); RED BLOOD COUNT 3.08 10^6/ul (4.70-6.10); RED CELL DISTRIBUTION WIDTH 16.4 % (11.5-14.5); WHITE BLOOD COUNT 11.9 10^3/ul (4.8-10.8)
[2017-02-11 08:04] LABS: ALBUMIN 3.2 g/dl (3.3-4.9); ALBUMIN/GLOBULIN RATIO 0.61; BILIRUBIN,DIRECT 7.5 mg/dl (0.00-0.20); BILIRUBIN,INDIRECT 3.2 mg/dl (0-1.1); BILIRUBIN,TOTAL 10.7 mg/dl (0.2-1.3); CALCIUM 8.8 mg/dl (8.4-10.2); CREATININE 1.58 mg/dl (0.61-1.24); TOTAL PROTEIN 8.4 g/dl (6.1-8.1)
[2017-02-11] MEDS: MULTIVITAMINS THERAPEUTIC TAB PO SCH (08:16)
[2017-02-11] MEDS: PROPRANOLOL 10 MG TAB PO SCH (08:17)
[2017-02-11] MEDS: FOLIC ACID 1 MG TAB PO SCH (08:17)
[2017-02-11] MEDS: RIFAXIMIN 550 MG TAB PO SCH ×2 (08:17→20:47)
[2017-02-11] MEDS: DEMECLOCYCLINE 150 MG TAB PO SCH ×2 (08:18→20:48)
[2017-02-11] MEDS: THIAMINE 100 MG TAB PO SCH (08:18)
[2017-02-11] MEDS: CITRIC ACID/SODIUM CITRATE 15 ML CUP PO SCH ×3 (08:18→20:49)
--- NOTE | 2017-02-11 15:55 | CONS ---
Date/Time of Note Date/Time of Note DATE: 02/11/17 TIME: 15:55 Assessment/Plan Assessment/Plan Additional Assessment/Plan IMPRESSION: 1. Decompensated cirrhosis of liver. Total bilirubin coming down its 10 2. Alcoholic cirrhosis. 4. Renal failure, better 5. History of polysubstance dependence in the past, in admission. 6. Anemia. 7. Thrombocytopenia. 8. Cholelithiasis. 9. Coagulopathy. 10. Ultrasound revealed gallstone and dilated biliary system, no evidence of obstruction or bile duct stone 11. HIV positive Plan Correction of hyponatremia MRCP showed irregularity of the gallbladder wall. Bile duct was not visualized Continue present care Consultation Date/Type/Reason Admit Date/Time February 05, 2017 at 18:37 Initial Consult Date 02/06/17 Type of Consultation: Cardiology Referring Provider: CARL GRANT MD 24 HR Interval Summary Constitutional: improved, no complaints Exam/Review of Systems Vital Signs Vitals Vital Signs Date Time Temp Pulse Resp B/P Pulse Ox O2 Delivery O2 Flow Rate FiO2 02/11/17 12:08 58 02/11/17 11:23 98.2 18 74/37 100 02/10/17 05:22 Room Air Intake and Output 02/10/17 02/10/17 02/11/17 15:00 23:00 07:00 Intake Total 1100 ml Balance 1100 ml Exam Constitutional: alert, oriented, well developed Psych: nl mood/affect, no complaints Head: atraumatic, normocephalic Eyes: EOMI, PERRL, nl conjunctiva, nl lids, nl sclera ENMT: nl external ears & nose, nl lips & teeth, nl nasal mucosa & septum Neck: non-tender, supple Respiratory: clear to auscultation, normal air movement Cardiovascular: nl pulses, regular rate and rhythm Gastrointestinal: nl liver, spleen, non-tender, soft Musculoskeletal: nl extremities to inspection, nl gait and stance Extremities: normal pulses Neurological: DIAMOND MOUNTER II-XII intact, nl mental status, nl speech, nl strength Skin: nl turgor, No rash or lesions Lymph: nl lymph nodes Results Result Diagram: 02/11/17 0720 02/11/17 0720 Results 24 hrs Laboratory Tests Test 02/11/17 07:20 02/11/17 07:33 White Blood Count 11.9 #H Red Blood Count 3.08 L Hemoglobin 10.2 L Hematocrit 29.2 L Mean Corpuscular Volume 94.8 Mean Corpuscular Hemoglobin 33.1 H Mean Corpuscular Hemoglobin Concent 34.9 Red Cell Distribution Width 16.4 H Platelet Count 65 L Mean Platelet Volume 12.3 H Neutrophils % 77.2 H Lymphocytes % 9.5 L Monocytes % 7.7 Eosinophils % 4.0 Basophils % 0.8 Nucleated Red Blood Cells % 0.0 Neutrophils # 9.2 H Lymphocytes # 1.1 Monocytes # 0.9 Eosinophils # 0.5 Basophils # 0.1 Nucleated Red Blood Cells # 0.0 Sodium Level 125 L Potassium Level 5.0 Chloride Level 96 L Carbon Dioxide Level 18 L Anion Gap 16 Blood Urea Nitrogen 40 #H Creatinine 1.58 H Glucose Level 94 Calcium Level 8.8 Total Bilirubin 10.7 H Direct Bilirubin 7.50 H Indirect Bilirubin 3.2 H Aspartate Amino Transf (AST/SGOT) 204 H Alanine Aminotransferase (ALT/SGPT) 91 H Alkaline Phosphatase 404 H B-Type Natriuretic Peptide 1120 H Total Protein 8.4 H Albumin 3.2 L Globulin 5.20 H Albumin/Globulin Ratio 0.61 Alpha Fetoprotein 1.34 Lab Scanned Report REFERENCE LAB Medications Medications Current Medications Multivitamins Therapeutic (Theragran) 1 tab DAILY PO Last administered on 08:16; Admin Dose 1 TAB; Start 02/06/17 at 09:00 Thiamine HCl (Vitamin B1) 100 mg DAILY PO Last administered on 02/11/17 08:18 ; Admin Dose 100 MG; Start 02/06/17 at 09:00 Furosemide (Lasix) 10 mg DAILY@06 PO Last administered on 02/10/17 05:31; Admin Dose 10 MG; Start 02/06/17 at 06:00 Lactulose (Enulose) 20 gm Q4 PRN PO CONSTIPATION; Start 02/06/17 at 00:00 Pantoprazole (Protonix Tab) 40 mg DAILY@06 PO Last administered on 02/11/17 05 :09; Admin Dose 40 MG; Start 02/06/17 at 06:00 Rifaximin (Xifaxan) 550 mg BID PO Last administered on 02/11/17 08:17; Admin Dose 550 MG; Start 02/06/17 at 09:00 Folic Acid (Folic Acid) 1 mg DAILY PO Last administered on 02/11/17 08:17; Admin Dose 1 MG; Start 02/06/17 at 09:00 Aripiprazole (Abilify) 1 mg HS PO Last administered on 02/10/17 20:34; Admin Dose 1 MG; Start 02/06/17 at 21:00 Morphine Sulfate (morphine) 2 mg Q3H PRN IV PAIN Last administered on 17:04; Admin Dose 2 MG; Start 02/06/17 at 01:00 Citric Acid/ Sodium Citrate (Bicitra) 30 ml TID PO Last administered on 12:10; Admin Dose 30 ML; Start 02/06/17 at 21:00 Demeclocycline HCl (Declomycin) 300 mg BID PO Last administered on 02/11/17 08 :18; Admin Dose 300 MG; Start 02/10/17 at 21:00 Propranolol HCl (Inderal) 10 mg BID PO ; Start 02/10/17 at 21:00 IGNACIA HERR MD February 11, 2017 15:55
--- NOTE | 2017-02-11 16:12 | CONS ---
Date/Time of Note Date/Time of Note DATE: 02/11/17 TIME: 16:08 Assessment/Plan Assessment/Plan Chief Complaint/Hosp Course IMPRESSION: 1. Exertional chest pain, assess for acute coronary syndrome.-negative troponin x 3. EF >65% by echo this admit 2. Dyspnea on exertion, assess for congestive heart failure.-increased BNP,. 3. Abnormal electrocardiogram, assess for acute coronary syndrome.-negative troponin x 3/NL EF by echo >65% this admit 4. Liver cirrhosis. 5. Nausea, vomiting. 6. ETOH abuse. 7. Polysubstance abuse. 8. Human immunodeficiency virus positivity. 9. Renal failure. 10. Hyponatremia. 11. Coagulopathy. 12. Anemia. 13. Thrombocytopenia. 14.Hypotension-intermittent/labile REcc: -Tele -Continue abx's and f/u cx data -Continue gentle lasix diuresis as tolerated only given intermittent hypotension -Will hold propranolol given hypotension -Continue PPI Problems: Consultation Date/Type/Reason Admit Date/Time February 05, 2017 at 18:37 Initial Consult Date 02/07/17 Type of Consultation: Cardiology Reason for Consultation chest pain Referring Provider: CARL GRANT MD Exam/Review of Systems Vital Signs Vitals Vital Signs Date Time Temp Pulse Resp B/P Pulse Ox O2 Delivery O2 Flow Rate FiO2 02/11/17 16:04 97.7 60 18 94/56 98 02/10/17 05:22 Room Air Intake and Output 02/10/17 02/10/17 02/11/17 15:00 23:00 07:00 Intake Total 1100 ml Balance 1100 ml Exam Review of Systems: CONSTITUTIONAL: No fevers, chills. PULMONARY: mild sob CARDIOVASCULAR: No chest pain/palpitations GASTROINTESTINAL: No nausea/vomiting. GENITOURINARY: No hematuria/dysuria. MUSCULOSKELETAL: No myagias/arthalgias. PSYCHIATRIC: The patient denies depression. NEUROLOGIC: No weakness Constitutional: alert, oriented Psych: no complaints Head: normocephalic ENMT: mucosa pink and moist Neck: jvd (8 cm water), supple Respiratory: diminished breath sounds (at bases/B) Cardiovascular: regular rate and rhythm Gastrointestinal: non-tender, soft Musculoskeletal: muscle tone (normal) Extremities: edema (none) Neurological: other (No focal deficits) Results Result Diagram: 02/11/17 0720 02/11/17 0720 Results 24 hrs Laboratory Tests Test 02/11/17 07:20 02/11/17 07:33 White Blood Count 11.9 #H Red Blood Count 3.08 L Hemoglobin 10.2 L Hematocrit 29.2 L Mean Corpuscular Volume 94.8 Mean Corpuscular Hemoglobin 33.1 H Mean Corpuscular Hemoglobin Concent 34.9 Red Cell Distribution Width 16.4 H Platelet Count 65 L Mean Platelet Volume 12.3 H Neutrophils % 77.2 H Lymphocytes % 9.5 L Monocytes % 7.7 Eosinophils % 4.0 Basophils % 0.8 Nucleated Red Blood Cells % 0.0 Neutrophils # 9.2 H Lymphocytes # 1.1 Monocytes # 0.9 Eosinophils # 0.5 Basophils # 0.1 Nucleated Red Blood Cells # 0.0 Sodium Level 125 L Potassium Level 5.0 Chloride Level 96 L Carbon Dioxide Level 18 L Anion Gap 16 Blood Urea Nitrogen 40 #H Creatinine 1.58 H Glucose Level 94 Calcium Level 8.8 Total Bilirubin 10.7 H Direct Bilirubin 7.50 H Indirect Bilirubin 3.2 H Aspartate Amino Transf (AST/SGOT) 204 H Alanine Aminotransferase (ALT/SGPT) 91 H Alkaline Phosphatase 404 H B-Type Natriuretic Peptide 1120 H Total Protein 8.4 H Albumin 3.2 L Globulin 5.20 H Albumin/Globulin Ratio 0.61 Alpha Fetoprotein 1.34 Lab Scanned Report REFERENCE LAB Medications Medications Current Medications Multivitamins Therapeutic (Theragran) 1 tab DAILY PO Last administered on 08:16; Admin Dose 1 TAB; Start 02/06/17 at 09:00 Thiamine HCl (Vitamin B1) 100 mg DAILY PO Last administered on 02/11/17 08:18 ; Admin Dose 100 MG; Start 02/06/17 at 09:00 Furosemide (Lasix) 10 mg DAILY@06 PO Last administered on 02/10/17 05:31; Admin Dose 10 MG; Start 02/06/17 at 06:00 Lactulose (Enulose) 20 gm Q4 PRN PO CONSTIPATION; Start 02/06/17 at 00:00 Pantoprazole (Protonix Tab) 40 mg DAILY@06 PO Last administered on 02/11/17 05 :09; Admin Dose 40 MG; Start 02/06/17 at 06:00 Rifaximin (Xifaxan) 550 mg BID PO Last administered on 02/11/17 08:17; Admin Dose 550 MG; Start 02/06/17 at 09:00 Folic Acid (Folic Acid) 1 mg DAILY PO Last administered on 02/11/17 08:17; Admin Dose 1 MG; Start 02/06/17 at 09:00 Aripiprazole (Abilify) 1 mg HS PO Last administered on 02/10/17 20:34; Admin Dose 1 MG; Start 02/06/17 at 21:00 Morphine Sulfate (morphine) 2 mg Q3H PRN IV PAIN Last administered on 17:04; Admin Dose 2 MG; Start 02/06/17 at 01:00 Citric Acid/ Sodium Citrate (Bicitra) 30 ml TID PO Last administered on 12:10; Admin Dose 30 ML; Start 02/06/17 at 21:00 Demeclocycline HCl (Declomycin) 300 mg BID PO Last administered on 02/11/17 08 :18; Admin Dose 300 MG; Start 02/10/17 at 21:00 Propranolol HCl (Inderal) 10 mg BID PO ; Start 02/10/17 at 21:00 SHAY COTTRELL February 11, 2017 16:12
--- NOTE | 2017-02-11 16:18 | CONS ---
Date/Time of Note Date/Time of Note DATE: 02/11/17 TIME: 16:17 Assessment/Plan Assessment/Plan Chief Complaint/Hosp Course The patient is a 56-year-old male patient with a history of alcoholic liver cirrhosis, hemophilia, admitted with hepatorenal syndrome-nephrology. No active bleeding. Hematology consulted due to history of hemophilia and thrombocytopenia. # Thrombocytopenia, likely related to alcoholic liver cirrhosis and splenomegaly and HIV infection - platelet count 79 at [facility], now stable at 50-60K. Continue to monitor, no evidence of bleeding - Transfuse < 10, < 50 if bleeding, otherwise monitor - HIV screen positive, patient denies as states that he was tested 30 days ago and was negative, however repeat HIV screen positive. Appreciate ID recs. - Hepatitis panel negative, unlikely DIC as prolongation of caogs and low fibrinogen likely related to liver disease. No need to give cryoprecipitate unless patient bleeding. - Abdominal US showed 1. Coarsened hepatic echotexture and suggested liver surface nodularity and mild common bile duct dilatation. - MRI Abdomen 02/08/17 showed 1. Cirrhosis without definite evidence of focal hepatic lesion. 2. Small ascites and splenomegaly. 3. Cholelithiasis with irregular gallbladder wall thickening may be related to chronic cholecystitis however cannot rule out underlying gallbladder mass lesion. 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 Kehinde Jimenez who informed me that he does not have a history of hemophilia but rather simply coagulopathy due to liver disease. However, the patient states that he was diagnosed in his 20s with hemophilia, prior to liver disease, diagnosed by Dr. Hu (now ) in [place]. - no evidence of bleeding at this time and no intervention required; patient states he has never required factor infusions, likely mild hemophilia if at all , query diagnosis given even if found to have low Factor VIII or IX levels may be due to liver disease as made in the liver - patient unsure whether was diagnosed with hemophilia A or B; pending Factor VIII and IX level # Macrocytic anemia, MCV 101.6, Hgb 8.5 at [facility] - Hgb 6.5 with MCV 99.0 on 02/07/17, s/p 2 units pRBCs now stable in 8-10 range. Transfuse < 8. - iron panel with Fe 109, TIBC low at 125, %87, ferritin 1250 consistent with anemia of chronic inflammation, B12/folate/TSH SNL, homocysteine elevated at 29.9; pending methylmalonic acid; LDH elevated, retic count inappropriately low ; haptoglobin < 15 (though likely low due to liver disease) Case management request for auth to be obtained for outpatient follow-up with me or Dr. Naya Dawson Problems: Consultation Date/Type/Reason Admit Date/Time February 05, 2017 at 18:37 Initial Consult Date 02/06/17 Type of Consultation: Hematology Referring Provider: CARL GRANT MD 24 HR Interval Summary Free Text/Dictation No changes in symptoms. Exam/Review of Systems Vital Signs Vitals Vital Signs Date Time Temp Pulse Resp B/P Pulse Ox O2 Delivery O2 Flow Rate FiO2 02/11/17 16:16 64 02/11/17 16:04 97.7 18 94/56 98 02/10/17 05:22 Room Air Intake and Output 02/10/17 02/10/17 02/11/17 15:00 23:00 07:00 Intake Total 1100 ml Balance 1100 ml Exam Constitutional: alert, oriented, well developed, jaunduced Head: normocephalic Eyes: icteric ENMT: nl external ears & nose Neck: non-tender Respiratory: clear to auscultation Cardiovascular: nl pulses Gastrointestinal: distended, ascites Musculoskeletal: nl extremities to inspection Extremities: normal pulses, bruises Neurological: nl mental status, nl speech Results Result Diagram: 02/11/17 0720 02/11/17 0720 Results 24 hrs Laboratory Tests Test 02/11/17 07:20 02/11/17 07:33 White Blood Count 11.9 #H Red Blood Count 3.08 L Hemoglobin 10.2 L Hematocrit 29.2 L Mean Corpuscular Volume 94.8 Mean Corpuscular Hemoglobin 33.1 H Mean Corpuscular Hemoglobin Concent 34.9 Red Cell Distribution Width 16.4 H Platelet Count 65 L Mean Platelet Volume 12.3 H Neutrophils % 77.2 H Lymphocytes % 9.5 L Monocytes % 7.7 Eosinophils % 4.0 Basophils % 0.8 Nucleated Red Blood Cells % 0.0 Neutrophils # 9.2 H Lymphocytes # 1.1 Monocytes # 0.9 Eosinophils # 0.5 Basophils # 0.1 Nucleated Red Blood Cells # 0.0 Sodium Level 125 L Potassium Level 5.0 Chloride Level 96 L Carbon Dioxide Level 18 L Anion Gap 16 Blood Urea Nitrogen 40 #H Creatinine 1.58 H Glucose Level 94 Calcium Level 8.8 Total Bilirubin 10.7 H Direct Bilirubin 7.50 H Indirect Bilirubin 3.2 H Aspartate Amino Transf (AST/SGOT) 204 H Alanine Aminotransferase (ALT/SGPT) 91 H Alkaline Phosphatase 404 H B-Type Natriuretic Peptide 1120 H Total Protein 8.4 H Albumin 3.2 L Globulin 5.20 H Albumin/Globulin Ratio 0.61 Alpha Fetoprotein 1.34 Lab Scanned Report REFERENCE LAB Medications Medications Current Medications Multivitamins Therapeutic (Theragran) 1 tab DAILY PO Last administered on 08:16; Admin Dose 1 TAB; Start 02/06/17 at 09:00 Thiamine HCl (Vitamin B1) 100 mg DAILY PO Last administered on 02/11/17 08:18 ; Admin Dose 100 MG; Start 02/06/17 at 09:00 Furosemide (Lasix) 10 mg DAILY@06 PO Last administered on 02/10/17 05:31; Admin Dose 10 MG; Start 02/06/17 at 06:00 Lactulose (Enulose) 20 gm Q4 PRN PO CONSTIPATION; Start 02/06/17 at 00:00 Pantoprazole (Protonix Tab) 40 mg DAILY@06 PO Last administered on 02/11/17 05 :09; Admin Dose 40 MG; Start 02/06/17 at 06:00 Rifaximin (Xifaxan) 550 mg BID PO Last administered on 02/11/17 08:17; Admin Dose 550 MG; Start 02/06/17 at 09:00 Folic Acid (Folic Acid) 1 mg DAILY PO Last administered on 02/11/17 08:17; Admin Dose 1 MG; Start 02/06/17 at 09:00 Aripiprazole (Abilify) 1 mg HS PO Last administered on 02/10/17 20:34; Admin Dose 1 MG; Start 02/06/17 at 21:00 Morphine Sulfate (morphine) 2 mg Q3H PRN IV PAIN Last administered on 17:04; Admin Dose 2 MG; Start 02/06/17 at 01:00 Citric Acid/ Sodium Citrate (Bicitra) 30 ml TID PO Last administered on 12:10; Admin Dose 30 ML; Start 02/06/17 at 21:00 Demeclocycline HCl (Declomycin) 300 mg BID PO Last administered on 02/11/17 08 :18; Admin Dose 300 MG; Start 02/10/17 at 21:00 Propranolol HCl (Inderal) 10 mg BID PO ; Start 02/10/17 at 21:00; Status Future Hold TO,ABRAM Ross MD February 11, 2017 16:18
--- NOTE | 2017-02-11 16:53 | PN ---
Date/Time of Note Date/Time of Note DATE: 02/11/17 TIME: 16:52 Assessment/Plan VTE Prophylaxis VTE Prophylaxis Intervention: SCD's Lines/Catheters IV [facility]from [facility] Urinary Cath still in place: No Assessment/Plan Chief Complaint/Hosp Course ASSESSMENT AND PLAN: - Liver cirrhosis. Dr. Zelaya is following in cart in gastroenterology consultation. - Ascites secondary to liver cirrhosis. - Hepatic encephalopathy. Continue lactulose and rifaximin. Monitor ammonia level. - Acute kidney injury, rule out hepatorenal syndrome. Dr. Robles is following in nephrology consultation. - Human immunodeficiency virus positive status. Dr. Ryan is following in infectious disease consultation. - Thrombocytopenia secondary to alcoholic liver cirrhosis and possible human immunodeficiency virus. Dr. Cabral is following in hematology consultation. - Microcytic anemia. Status post transfusion, continue to monitor hemoglobin and hematocrit. - Coagulopathy. - Cholelithiasis. - Hyponatremia Further recommendations based on clinical course. Plan of care discussed with Dr. James. Problems: Exam/Review of Systems Vital Signs Vitals Vital Signs Date Time Temp Pulse Resp B/P Pulse Ox O2 Delivery O2 Flow Rate FiO2 02/11/17 16:16 64 02/11/17 16:04 97.7 18 94/56 98 02/10/17 05:22 Room Air Intake and Output 02/10/17 02/10/17 02/11/17 15:00 23:00 07:00 Intake Total 1100 ml Balance 1100 ml Exam Constitutional: alert, oriented, other (Jaundiced) Psych: no complaints Eyes: icteric Neck: supple Respiratory: clear to auscultation Cardiovascular: nl pulses, regular rate and rhythm Gastrointestinal: distended, soft Musculoskeletal: nl extremities to inspection Extremities: normal pulses Results Result Diagram: 02/11/1720 02/11/1720 Results 24 hrs Laboratory Tests Test 02/11/17 07:20 02/11/17 07:33 White Blood Count 11.9 #H Red Blood Count 3.08 L Hemoglobin 10.2 L Hematocrit 29.2 L Mean Corpuscular Volume 94.8 Mean Corpuscular Hemoglobin 33.1 H Mean Corpuscular Hemoglobin Concent 34.9 Red Cell Distribution Width 16.4 H Platelet Count 65 L Mean Platelet Volume 12.3 H Neutrophils % 77.2 H Lymphocytes % 9.5 L Monocytes % 7.7 Eosinophils % 4.0 Basophils % 0.8 Nucleated Red Blood Cells % 0.0 Neutrophils # 9.2 H Lymphocytes # 1.1 Monocytes # 0.9 Eosinophils # 0.5 Basophils # 0.1 Nucleated Red Blood Cells # 0.0 Sodium Level 125 L Potassium Level 5.0 Chloride Level 96 L Carbon Dioxide Level 18 L Anion Gap 16 Blood Urea Nitrogen 40 #H Creatinine 1.58 H Glucose Level 94 Calcium Level 8.8 Total Bilirubin 10.7 H Direct Bilirubin 7.50 H Indirect Bilirubin 3.2 H Aspartate Amino Transf (AST/SGOT) 204 H Alanine Aminotransferase (ALT/SGPT) 91 H Alkaline Phosphatase 404 H B-Type Natriuretic Peptide 1120 H Total Protein 8.4 H Albumin 3.2 L Globulin 5.20 H Albumin/Globulin Ratio 0.61 Alpha Fetoprotein 1.34 Lab Scanned Report REFERENCE LAB Medications Medications Current Medications Multivitamins Therapeutic (Theragran) 1 tab DAILY PO Last administered on 08:16; Admin Dose 1 TAB; Start 02/06/17 at 09:00 Thiamine HCl (Vitamin B1) 100 mg DAILY PO Last administered on 02/11/17 08:18 ; Admin Dose 100 MG; Start 02/06/17 at 09:00 Furosemide (Lasix) 10 mg DAILY@06 PO Last administered on 02/10/17 05:31; Admin Dose 10 MG; Start 02/06/17 at 06:00 Lactulose (Enulose) 20 gm Q4 PRN PO CONSTIPATION; Start 02/06/17 at 00:00 Pantoprazole (Protonix Tab) 40 mg DAILY@06 PO Last administered on 02/11/17 05 :09; Admin Dose 40 MG; Start 02/06/17 at 06:00 Rifaximin (Xifaxan) 550 mg BID PO Last administered on 02/11/17 08:17; Admin Dose 550 MG; Start 02/06/17 at 09:00 Folic Acid (Folic Acid) 1 mg DAILY PO Last administered on 02/11/17 08:17; Admin Dose 1 MG; Start 02/06/17 at 09:00 Aripiprazole (Abilify) 1 mg HS PO Last administered on 02/10/17 20:34; Admin Dose 1 MG; Start 02/06/17 at 21:00 Morphine Sulfate (morphine) 2 mg Q3H PRN IV PAIN Last administered on 17:04; Admin Dose 2 MG; Start 02/06/17 at 01:00 Citric Acid/ Sodium Citrate (Bicitra) 30 ml TID PO Last administered on 12:10; Admin Dose 30 ML; Start 02/06/17 at 21:00 Demeclocycline HCl (Declomycin) 300 mg BID PO Last administered on 02/11/17 08 :18; Admin Dose 300 MG; Start 02/10/17 at 21:00 Propranolol HCl (Inderal) 10 mg BID PO ; Start 02/10/17 at 21:00; Status Future Hold ALIVIA ALVAREZ February 11, 2017 16:53
--- NOTE | 2017-02-11 17:09 | CONS ---
Date/Time of Note Date/Time of Note DATE: 02/11/17 TIME: 17:07 Assessment/Plan Assessment/Plan Additional Assessment/Plan 1. Hyponatremia likely secondary to liver cirrhosis. 2. no heaptorenal syndrome 3. Acute kidney injury, likely secondary to prerenal azotemia in the setting of decompensated liver cirrhosis. 4. 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 5. History of recurrent ascites, status post last paracentesis done 3 weeks ago , 1.6 liters of fluid was removed. 6. Acute hyperkalemia, possibly secondary to Bactrim. PLAN: US of abdomen did not show ascites, Gallstones within the distended gallbladder and mild gallbladder wall thickening.mild CBD dilatation- pt abdomen getting distended agani, need possibel US guided paracentesis Cr bumped and Na dropped today due to decompensated liver cirrhsois - pt is not a candidate for Tolvaptan due to elevated LFTs, on demeclocycline 300mg po BID, tertiary care center referral for liver transplant evaluation HCO3 improving with bicitra will follow up Consultation Date/Type/Reason Admit Date/Time February 05, 2017 at 18:37 Initial Consult Date 02/06/17 Type of Consultation: NEPHROLOGY Referring Provider: CARL GRANT MD 24 HR Interval Summary Free Text/Dictation doing ok, BP stable,a febrile , abdomen getting distended , Exam/Review of Systems Vital Signs Vitals Vital Signs Date Time Temp Pulse Resp B/P Pulse Ox O2 Delivery O2 Flow Rate FiO2 02/11/17 16:16 64 02/11/17 16:04 97.7 18 94/56 98 02/10/17 05:22 Room Air Intake and Output 02/10/17 02/10/17 02/11/17 15:00 23:00 07:00 Intake Total 1100 ml Balance 1100 ml Exam Constitutional: alert, oriented, well developed, jaunduced Head: normocephalic Eyes: icteric ENMT: nl external ears & nose Neck: non-tender Respiratory: clear to auscultation Cardiovascular: nl pulses Gastrointestinal: distended, ascites Musculoskeletal: nl extremities to inspection Extremities: normal pulses, bruises Neurological: nl mental status, nl speech Results Result Diagram: 02/11/17 0720 02/11/17 0720 Results 24 hrs Laboratory Tests Test 02/11/17 07:20 02/11/17 07:33 White Blood Count 11.9 #H Red Blood Count 3.08 L Hemoglobin 10.2 L Hematocrit 29.2 L Mean Corpuscular Volume 94.8 Mean Corpuscular Hemoglobin 33.1 H Mean Corpuscular Hemoglobin Concent 34.9 Red Cell Distribution Width 16.4 H Platelet Count 65 L Mean Platelet Volume 12.3 H Neutrophils % 77.2 H Lymphocytes % 9.5 L Monocytes % 7.7 Eosinophils % 4.0 Basophils % 0.8 Nucleated Red Blood Cells % 0.0 Neutrophils # 9.2 H Lymphocytes # 1.1 Monocytes # 0.9 Eosinophils # 0.5 Basophils # 0.1 Nucleated Red Blood Cells # 0.0 Sodium Level 125 L Potassium Level 5.0 Chloride Level 96 L Carbon Dioxide Level 18 L Anion Gap 16 Blood Urea Nitrogen 40 #H Creatinine 1.58 H Glucose Level 94 Calcium Level 8.8 Total Bilirubin 10.7 H Direct Bilirubin 7.50 H Indirect Bilirubin 3.2 H Aspartate Amino Transf (AST/SGOT) 204 H Alanine Aminotransferase (ALT/SGPT) 91 H Alkaline Phosphatase 404 H B-Type Natriuretic Peptide 1120 H Total Protein 8.4 H Albumin 3.2 L Globulin 5.20 H Albumin/Globulin Ratio 0.61 Alpha Fetoprotein 1.34 Lab Scanned Report REFERENCE LAB Medications Medications Current Medications Multivitamins Therapeutic (Theragran) 1 tab DAILY PO Last administered on 08:16; Admin Dose 1 TAB; Start 02/06/17 at 09:00 Thiamine HCl (Vitamin B1) 100 mg DAILY PO Last administered on 02/11/17 08:18 ; Admin Dose 100 MG; Start 02/06/17 at 09:00 Furosemide (Lasix) 10 mg DAILY@06 PO Last administered on 02/10/17 05:31; Admin Dose 10 MG; Start 02/06/17 at 06:00 Lactulose (Enulose) 20 gm Q4 PRN PO CONSTIPATION; Start 02/06/17 at 00:00 Pantoprazole (Protonix Tab) 40 mg DAILY@06 PO Last administered on 02/11/17 05 :09; Admin Dose 40 MG; Start 02/06/17 at 06:00 Rifaximin (Xifaxan) 550 mg BID PO Last administered on 02/11/17 08:17; Admin Dose 550 MG; Start 02/06/17 at 09:00 Folic Acid (Folic Acid) 1 mg DAILY PO Last administered on 02/11/17 08:17; Admin Dose 1 MG; Start 02/06/17 at 09:00 Aripiprazole (Abilify) 1 mg HS PO Last administered on 02/10/17 20:34; Admin Dose 1 MG; Start 02/06/17 at 21:00 Morphine Sulfate (morphine) 2 mg Q3H PRN IV PAIN Last administered on 17:04; Admin Dose 2 MG; Start 02/06/17 at 01:00 Citric Acid/ Sodium Citrate (Bicitra) 30 ml TID PO Last administered on 12:10; Admin Dose 30 ML; Start 02/06/17 at 21:00 Demeclocycline HCl (Declomycin) 300 mg BID PO Last administered on 02/11/17 08 :18; Admin Dose 300 MG; Start 02/10/17 at 21:00 Propranolol HCl (Inderal) 10 mg BID PO ; Start 02/10/17 at 21:00; Status Future Hold ELLIOT PARRA MD February 11, 2017 17:09
[2017-02-11] MEDS: ARIPIPRAZOLE 2 MG TAB PO SCH (20:47)
[2017-02-11] MEDS: morphine 2 MG INJ IV PRN (21:58)
[2017-02-12] VITALS (12 sets, daily range): BP systolic 87–131; BP diastolic 52–65; PULSE 60–69; RESP 16–66
[2017-02-12] MEDS: morphine 2 MG INJ IV PRN ×2 (01:40→22:17)
[2017-02-12] MEDS: PANTOPRAZOLE (EC) 40 MG TAB PO SCH (06:00)
[2017-02-12] MEDS: FUROSEMIDE 20 MG TAB PO SCH (06:01)
--- NOTE | 2017-02-12 07:49 | CONS ---
Date/Time of Note Date/Time of Note DATE: 02/12/17 TIME: 07:45 Assessment/Plan Assessment/Plan Chief Complaint/Hosp Course IMPRESSION: 1. Hyponatremia likely secondary to liver cirrhosis. 2. Acute kidney injury without heptorenal syndrome, likely secondary to prerenal azotemia in the setting of decompensated liver cirrhosis. 3. 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 4. History of recurrent ascites, status post last paracentesis done 3 weeks ago , 1.6 liters of fluid was removed. 5. Acute hyperkalemia, possibly secondary to Bactrim. PLAN: - Pt abdomen getting distended aganin, may US guided paracentesis if more distended - Tertiary care center referral for liver transplant evaluation if patient is not an active drinker - continue lactulose and rifaximen for hepatic encephalopathy - continue low dose lasix, titrate as tolerated by kidney function - add spironolactone if potassium normalizes. Problems: Consultation Date/Type/Reason Admit Date/Time February 05, 2017 at 18:37 Initial Consult Date 02/07/17 Type of Consultation: GI Referring Provider: CARL GRANT MD 24 HR Interval Summary Free Text/Dictation reports improved abdominal pain, confusion. Complains of worsening left arm pain and insomnia. Exam/Review of Systems Vital Signs Vitals Vital Signs Date Time Temp Pulse Resp B/P Pulse Ox O2 Delivery O2 Flow Rate FiO2 02/12/17 04:25 60 02/12/17 04:20 98.6 16 110/60 100 02/10/17 05:22 Room Air Intake and Output 02/11/17 02/11/17 02/12/17 15:00 23:00 07:00 Intake Total 900 ml Balance 900 ml Exam Constitutional: alert, oriented Psych: nl mood/affect, no complaints Head: atraumatic, normocephalic Eyes: EOMI, icteric ENMT: mucosa pink and moist, nl external ears & nose, nl lips & teeth, nl nasal mucosa & septum Neck: non-tender, supple Respiratory: clear to auscultation, normal air movement Cardiovascular: nl pulses, regular rate and rhythm Gastrointestinal: bowel sounds, distended, soft Results Result Diagram: 02/11/1771902/11/17719 Medications Medications Current Medications Multivitamins Therapeutic (Theragran) 1 tab DAILY PO Last administered on 08:16; Admin Dose 1 TAB; Start 02/06/17 at 09:00 Thiamine HCl (Vitamin B1) 100 mg DAILY PO Last administered on 02/11/17 08:18 ; Admin Dose 100 MG; Start 02/06/17 at 09:00 Furosemide (Lasix) 10 mg DAILY@06 PO Last administered on 02/12/17 06:01; Admin Dose 10 MG; Start 02/06/17 at 06:00 Lactulose (Enulose) 20 gm Q4 PRN PO CONSTIPATION; Start 02/06/17 at 00:00 Pantoprazole (Protonix Tab) 40 mg DAILY@06 PO Last administered on 02/12/17 06 :00; Admin Dose 40 MG; Start 02/06/17 at 06:00 Rifaximin (Xifaxan) 550 mg BID PO Last administered on 02/11/17 20:47; Admin Dose 550 MG; Start 02/06/17 at 09:00 Folic Acid (Folic Acid) 1 mg DAILY PO Last administered on 02/11/17 08:17; Admin Dose 1 MG; Start 02/06/17 at 09:00 Aripiprazole (Abilify) 1 mg HS PO Last administered on 02/11/17 20:47; Admin Dose 1 MG; Start 02/06/17 at 21:00 Morphine Sulfate (morphine) 2 mg Q3H PRN IV PAIN Last administered on 01:40; Admin Dose 2 MG; Start 02/06/17 at 01:00 Citric Acid/ Sodium Citrate (Bicitra) 30 ml TID PO Last administered on 12:10; Admin Dose 30 ML; Start 02/06/17 at 21:00 Demeclocycline HCl (Declomycin) 300 mg BID PO Last administered on 02/11/17 20 :48; Admin Dose 300 MG; Start 02/10/17 at 21:00 Propranolol HCl (Inderal) 10 mg BID PO ; Start 02/10/17 at 21:00; Status Future Hold SARAI BALDWIN MD February 12, 2017 07:49
[2017-02-12] MEDS: DEMECLOCYCLINE 150 MG TAB PO SCH ×2 (08:23→21:03)
[2017-02-12] MEDS: MULTIVITAMINS THERAPEUTIC TAB PO SCH (08:23)
[2017-02-12] MEDS: RIFAXIMIN 550 MG TAB PO SCH ×2 (08:23→21:02)
[2017-02-12] MEDS: FOLIC ACID 1 MG TAB PO SCH (08:23)
[2017-02-12] MEDS: CITRIC ACID/SODIUM CITRATE 15 ML CUP PO SCH ×3 (08:24→21:00)
[2017-02-12] MEDS: THIAMINE 100 MG TAB PO SCH ×2 (08:24→17:32)
[2017-02-12] MEDS: ONDANSETRON 4 MG INJ IV PRN (09:19)
--- NOTE | 2017-02-12 11:03 | CONS ---
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 (ordered 02.12.17) - monitor off abx Problems: Consultation Date/Type/Reason Admit Date/Time February 05, 2017 at 18:37 Initial Consult Date 02/06/17 Type of Consultation: id Referring Provider: CARL GRANT MD 24 HR Interval Summary Free Text/Dictation feels better. still has abdominal distension Exam/Review of Systems Vital Signs Vitals Vital Signs Date Time Temp Pulse Resp B/P Pulse Ox O2 Delivery O2 Flow Rate FiO2 02/12/17 08:31 67 02/12/17 07:52 98.0 66 107/65 100 02/10/17 05:22 Room Air Intake and Output 02/11/17 02/11/17 02/12/17 15:00 23:00 07:00 Intake Total 900 ml Balance 900 ml Exam Constitutional: alert, oriented, well developed Psych: nl mood/affect, no complaints Eyes: EOMI, PERRL, nl conjunctiva, nl lids, nl sclera ENMT: nl external ears & nose, nl lips & teeth, nl nasal mucosa & septum Respiratory: clear to auscultation, normal air movement Cardiovascular: nl pulses, regular rate and rhythm Results Result Diagram: 02/11/1771902/11/17719 Medications Medications Current Medications Multivitamins Therapeutic (Theragran) 1 tab DAILY PO Last administered on 08:23; Admin Dose 1 TAB; Start 02/06/17 at 09:00 Thiamine HCl (Vitamin B1) 100 mg DAILY PO Last administered on 02/11/17 08:18 ; Admin Dose 100 MG; Start 02/06/17 at 09:00 Furosemide (Lasix) 10 mg DAILY@06 PO Last administered on 02/12/17 06:01; Admin Dose 10 MG; Start 02/06/17 at 06:00 Lactulose (Enulose) 20 gm Q4 PRN PO CONSTIPATION; Start 02/06/17 at 00:00 Pantoprazole (Protonix Tab) 40 mg DAILY@06 PO Last administered on 02/12/17 06 :00; Admin Dose 40 MG; Start 02/06/17 at 06:00 Rifaximin (Xifaxan) 550 mg BID PO Last administered on 02/12/17 08:23; Admin Dose 550 MG; Start 02/06/17 at 09:00 Folic Acid (Folic Acid) 1 mg DAILY PO Last administered on 02/12/17 08:23; Admin Dose 1 MG; Start 02/06/17 at 09:00 Aripiprazole (Abilify) 1 mg HS PO Last administered on 02/11/17 20:47; Admin Dose 1 MG; Start 02/06/17 at 21:00 Morphine Sulfate (morphine) 2 mg Q3H PRN IV PAIN Last administered on 01:40; Admin Dose 2 MG; Start 02/06/17 at 01:00 Citric Acid/ Sodium Citrate (Bicitra) 30 ml TID PO Last administered on 08:24; Admin Dose 30 ML; Start 02/06/17 at 21:00 Demeclocycline HCl (Declomycin) 300 mg BID PO Last administered on 02/12/17 08 :23; Admin Dose 300 MG; Start 02/10/17 at 21:00 Propranolol HCl (Inderal) 10 mg BID PO ; Start 02/10/17 at 21:00; Status Future Hold Ondansetron HCl (Zofran Inj) 4 mg Q6H PRN IV NAUSEA AND/OR VOMITING Last administered on 02/12/17 09:19; Admin Dose 4 MG; Start 02/12/17 at 09:30 XAVI GARCES MD February 12, 2017 11:03
[2017-02-12 11:25] LABS: ADD SCAN DIFF NO
[2017-02-12 11:46] LABS: ABNORMAL IP MESSAGE 1; BASOPHIL # 0.1 10^3/ul (0.0-0.1); BASOPHILS % 0.7 % (0.0-2.0); EOSINOPHILS # 0.4 10^3/ul (0.0-0.5); EOSINOPHILS % 3.7 % (0.0-7.0); HEMATOCRIT 25.7 % (42.0-52.0); HEMOGLOBIN 9.3 g/dl (14.0-18.0); LYMPHOCYTES # 1.1 10^3/ul (0.8-2.9); LYMPHOCYTES % 10.7 % (15.0-51.0); MEAN CORPUSCULAR HEMOGLOBIN 33.6 pg (29.0-33.0); MEAN CORPUSCULAR HGB CONC 36.2 g/dl (32.0-37.0); MEAN CORPUSCULAR VOLUME 92.8 fl (82.0-101.0); MEAN PLATELET VOLUME 11.4 fl (7.4-10.4); MONOCYTES % 9.8 % (0.0-11.0); NEUTROPHIL # 7.8 10^3/ul (1.6-7.5); NEUTROPHILS % 74.4 % (39.0-77.0); PLATELET COUNT 55 10^3/UL (140-415); RED BLOOD COUNT 2.77 10^6/ul (4.70-6.10); RED CELL DISTRIBUTION WIDTH 16.1 % (11.5-14.5); WHITE BLOOD COUNT 10.4 10^3/ul (4.8-10.8)
[2017-02-12 12:12] LABS: CALCIUM 8.6 mg/dl (8.4-10.2); CREATININE 1.76 mg/dl (0.61-1.24)
--- NOTE | 2017-02-12 13:19 | PN ---
Date/Time of Note Date/Time of Note DATE: 02/12/17 TIME: 13:19 Assessment/Plan VTE Prophylaxis VTE Prophylaxis Intervention: other Lines/Catheters IV [facility] Urinary Cath still in place: No Assessment/Plan Chief Complaint/Hosp Course - Liver cirrhosis. Dr. Zelaya is following in cart in gastroenterology consultation. - Ascites secondary to liver cirrhosis. - Hepatic encephalopathy. Continue lactulose and rifaximin. Monitor ammonia level. - Acute kidney injury, rule out hepatorenal syndrome. Dr. Robles is following in nephrology consultation. - Human immunodeficiency virus positive status. Dr. Ryan is following in infectious disease consultation. - Thrombocytopenia secondary to alcoholic liver cirrhosis and possible human immunodeficiency virus. Dr. Cabral is following in hematology consultation. - Microcytic anemia. Status post transfusion, continue to monitor hemoglobin and hematocrit. - Coagulopathy. - Cholelithiasis. - Hyponatremia Problems: Subjective 24 Hr Interval Summary Free Text/Dictation Patient is still nausea, not feeling well Exam/Review of Systems Vital Signs Vitals Vital Signs Date Time Temp Pulse Resp B/P Pulse Ox O2 Delivery O2 Flow Rate FiO2 02/12/17 12:14 65 02/12/17 11:36 97.9 16 110/64 100 02/10/17 05:22 Room Air Intake and Output 02/11/17 02/11/17 02/12/17 15:00 23:00 07:00 Intake Total 900 ml Balance 900 ml Exam Constitutional: well developed Head: atraumatic, normocephalic Neck: supple Respiratory: diminished breath sounds Cardiovascular: regular rate and rhythm Gastrointestinal: non-tender, soft Extremities: normal pulses Results Result Diagram: 02/12/17 1010 02/12/17 1010 Results 24 hrs Laboratory Tests Test 02/12/17 10:10 White Blood Count 10.4 Red Blood Count 2.77 L Hemoglobin 9.3 L Hematocrit 25.7 L Mean Corpuscular Volume 92.8 Mean Corpuscular Hemoglobin 33.6 H Mean Corpuscular Hemoglobin Concent 36.2 Red Cell Distribution Width 16.1 H Platelet Count 55 L Mean Platelet Volume 11.4 H Neutrophils % 74.4 Lymphocytes % 10.7 L Monocytes % 9.8 Eosinophils % 3.7 Basophils % 0.7 Nucleated Red Blood Cells % 0.0 Neutrophils # 7.8 H Lymphocytes # 1.1 Monocytes # 1.0 H Eosinophils # 0.4 Basophils # 0.1 Nucleated Red Blood Cells # 0.0 Sodium Level 127 L Potassium Level 4.0 Chloride Level 96 L Carbon Dioxide Level 18 L Anion Gap 17 H Blood Urea Nitrogen 48 H Creatinine 1.76 H Glucose Level 102 Calcium Level 8.6 Medications Medications Current Medications Multivitamins Therapeutic (Theragran) 1 tab DAILY PO Last administered on 08:23; Admin Dose 1 TAB; Start 02/06/17 at 09:00 Thiamine HCl (Vitamin B1) 100 mg DAILY PO Last administered on 02/11/17 08:18 ; Admin Dose 100 MG; Start 02/06/17 at 09:00 Furosemide (Lasix) 10 mg DAILY@06 PO Last administered on 02/12/17 06:01; Admin Dose 10 MG; Start 02/06/17 at 06:00 Lactulose (Enulose) 20 gm Q4 PRN PO CONSTIPATION; Start 02/06/17 at 00:00 Pantoprazole (Protonix Tab) 40 mg DAILY@06 PO Last administered on 02/12/17 06 :00; Admin Dose 40 MG; Start 02/06/17 at 06:00 Rifaximin (Xifaxan) 550 mg BID PO Last administered on 02/12/17 08:23; Admin Dose 550 MG; Start 02/06/17 at 09:00 Folic Acid (Folic Acid) 1 mg DAILY PO Last administered on 02/12/17 08:23; Admin Dose 1 MG; Start 02/06/17 at 09:00 Aripiprazole (Abilify) 1 mg HS PO Last administered on 02/11/17 20:47; Admin Dose 1 MG; Start 02/06/17 at 21:00 Morphine Sulfate (morphine) 2 mg Q3H PRN IV PAIN Last administered on 01:40; Admin Dose 2 MG; Start 02/06/17 at 01:00 Citric Acid/ Sodium Citrate (Bicitra) 30 ml TID PO Last administered on 12:29; Admin Dose 30 ML; Start 02/06/17 at 21:00 Demeclocycline HCl (Declomycin) 300 mg BID PO Last administered on 02/12/17 08 :23; Admin Dose 300 MG; Start 02/10/17 at 21:00 Propranolol HCl (Inderal) 10 mg BID PO ; Start 02/10/17 at 21:00; Status Future Hold Ondansetron HCl (Zofran Inj) 4 mg Q6H PRN IV NAUSEA AND/OR VOMITING Last administered on 02/12/17 09:19; Admin Dose 4 MG; Start 02/12/17 at 09:30 TRISH TAMAYO February 12, 2017 13:19
--- NOTE | 2017-02-12 16:06 | CONS ---
Date/Time of Note Date/Time of Note DATE: 02/12/17 TIME: 16:02 Assessment/Plan Assessment/Plan Additional Assessment/Plan Atypical chest pain Diastolic heart failure Abnormal EKG Liver Cirrhosis Alcohol abuse Substance abuse HIV Renal failure Anemia Thrombocytopenia Asymptomatic hemodynamically stable Heat failure clinically compensated Discontinue Lasix Continue lactulose Continue Rifaximin Continue GI and DVT Prophylaxis Consultation Date/Type/Reason Admit Date/Time February 05, 2017 at 18:37 Constitutional: improved, no complaints Eyes: no complaints ENT: no complaints Respiratory: no complaints Cardiovascular: no complaints Gastrointestinal: pain Genitourinary: no complaints Musculoskeletal: no complaints Skin: no complaints Neurologic: no complaints Lymphatic: no complaints Psychological: nl mood/affect, no complaints Immunologic: no complaints Past Medical History Medical History: hypertension, renal disease, other Past Surgical History Past Surgical Hx: appendectomy Social History Alcohol Use: other (Alcoholism) Smoking Status: Former smoker Drug Use: other (History of substance use) Exam/Review of Systems Vital Signs Vitals Vital Signs Date Time Temp Pulse Resp B/P Pulse Ox O2 Delivery O2 Flow Rate FiO2 02/12/17 12:14 65 02/12/17 11:36 97.9 16 110/64 100 02/10/17 05:22 Room Air Intake and Output 02/11/17 02/11/17 02/12/17 15:00 23:00 07:00 Intake Total 900 ml Balance 900 ml Exam Constitutional: alert, oriented, well developed Head: atraumatic, normocephalic Neck: non-tender, supple Respiratory: clear to auscultation Cardiovascular: regular rate and rhythm Gastrointestinal: nl liver, spleen, non-tender, soft Extremities: normal pulses Results Result Diagram: 02/12/17 1010 02/12/17 1010 Results 24 hrs Laboratory Tests Test 02/12/17 10:10 White Blood Count 10.4 Red Blood Count 2.77 L Hemoglobin 9.3 L Hematocrit 25.7 L Mean Corpuscular Volume 92.8 Mean Corpuscular Hemoglobin 33.6 H Mean Corpuscular Hemoglobin Concent 36.2 Red Cell Distribution Width 16.1 H Platelet Count 55 L Mean Platelet Volume 11.4 H Neutrophils % 74.4 Lymphocytes % 10.7 L Monocytes % 9.8 Eosinophils % 3.7 Basophils % 0.7 Nucleated Red Blood Cells % 0.0 Neutrophils # 7.8 H Lymphocytes # 1.1 Monocytes # 1.0 H Eosinophils # 0.4 Basophils # 0.1 Nucleated Red Blood Cells # 0.0 Sodium Level 127 L Potassium Level 4.0 Chloride Level 96 L Carbon Dioxide Level 18 L Anion Gap 17 H Blood Urea Nitrogen 48 H Creatinine 1.76 H Glucose Level 102 Calcium Level 8.6 Medications Medications Current Medications Multivitamins Therapeutic (Theragran) 1 tab DAILY PO Last administered on 08:23; Admin Dose 1 TAB; Start 02/06/17 at 09:00 Thiamine HCl (Vitamin B1) 100 mg DAILY PO Last administered on 02/11/17 08:18 ; Admin Dose 100 MG; Start 02/06/17 at 09:00 Furosemide (Lasix) 10 mg DAILY@06 PO Last administered on 02/12/17 06:01; Admin Dose 10 MG; Start 02/06/17 at 06:00 Lactulose (Enulose) 20 gm Q4 PRN PO CONSTIPATION; Start 02/06/17 at 00:00 Pantoprazole (Protonix Tab) 40 mg DAILY@06 PO Last administered on 02/12/17 06 :00; Admin Dose 40 MG; Start 02/06/17 at 06:00 Rifaximin (Xifaxan) 550 mg BID PO Last administered on 02/12/17 08:23; Admin Dose 550 MG; Start 02/06/17 at 09:00 Folic Acid (Folic Acid) 1 mg DAILY PO Last administered on 02/12/17 08:23; Admin Dose 1 MG; Start 02/06/17 at 09:00 Aripiprazole (Abilify) 1 mg HS PO Last administered on 02/11/17 20:47; Admin Dose 1 MG; Start 02/06/17 at 21:00 Morphine Sulfate (morphine) 2 mg Q3H PRN IV PAIN Last administered on 01:40; Admin Dose 2 MG; Start 02/06/17 at 01:00 Citric Acid/ Sodium Citrate (Bicitra) 30 ml TID PO Last administered on 12:29; Admin Dose 30 ML; Start 02/06/17 at 21:00 Demeclocycline HCl (Declomycin) 300 mg BID PO Last administered on 02/12/17 08 :23; Admin Dose 300 MG; Start 02/10/17 at 21:00 Propranolol HCl (Inderal) 10 mg BID PO ; Start 02/10/17 at 21:00; Status Future Hold Ondansetron HCl (Zofran Inj) 4 mg Q6H PRN IV NAUSEA AND/OR VOMITING Last administered on 02/12/17t 09:19; Admin Dose 4 MG; Start 02/12/17 at 09:30 COLLEEN ALVARADO M.D. February 12, 2017 16:06
--- NOTE | 2017-02-12 18:00 | CONS ---
Date/Time of Note Date/Time of Note DATE: 02/12/17 TIME: 17:59 Assessment/Plan Assessment/Plan Chief Complaint/Hosp Course - HIV positive - probable false positive; no hx of previous HIV Rx - Decompensated liver cirrhosis due to alcohol - Hyponatremia likely secondary to cirrhosis - Acute on chronic anemia requiring blood transfusion - Coagulopathy due to liver disease - Thrombocytopenia - Metabolic acidosis - Hyperammonemia - AGATA - no heaptorenal syndrome per Renal - Portal hypertension - Cholelithiasis - Ascites s/p paracentesis ~4 weeks ago with 1.6 L removed; small ascites on MRI - Splenomegaly on MRI - S/p hyperkalemia - H/o alcoholism - H/o substance abuse Recommendations: - F/u 4th generation HIV testing (ordered 02/12/17) - Monitor off systemic abx; s/p Zosyn (02/05/17-02/10/17) - Continue rifaximin per GI and demeclocycline per Renal Management d/w Pt, RN Alessandro and Dr. Ryan. Problems: Consultation Date/Type/Reason Admit Date/Time February 05, 2017 at 18:37 Initial Consult Date 02/07/17 Type of Consultation: Infectious Disease Referring Provider: CARL GRANT MD 24 HR Interval Summary Free Text/Dictation C/o increased abd distention/bloatedness, indigestion, nausea and decreased U.O. Reports having a recent tick bite. Still having intermittent sharp LUE pain and occasional SOB. Exam/Review of Systems Vital Signs Vitals Vital Signs Date Time Temp Pulse Resp B/P Pulse Ox O2 Delivery O2 Flow Rate FiO2 02/12/17 16:21 97.6 18 18 87/52 100 02/10/17 05:22 Room Air Intake and Output 02/11/17 02/11/17 02/12/17 15:00 23:00 07:00 Intake Total 900 ml Balance 900 ml Exam Constitutional: alert, oriented, other (debilitated), well developed Head: atraumatic, normocephalic Eyes: icteric Neck: supple Respiratory: clear to auscultation Cardiovascular: regular rate and rhythm, systolic murmur Gastrointestinal: ascites, distended, soft Extremities: BLE edema Neurological: other (tremors on LUE); A&Ox4. ANAYA Skin: ecchymosis (scattered on BLE), other (Jaundiced) Results Result Diagram: 02/12/17 1010 02/12/17 1010 Results 24 hrs Laboratory Tests Test 02/12/17 10:10 White Blood Count 10.4 Red Blood Count 2.77 L Hemoglobin 9.3 L Hematocrit 25.7 L Mean Corpuscular Volume 92.8 Mean Corpuscular Hemoglobin 33.6 H Mean Corpuscular Hemoglobin Concent 36.2 Red Cell Distribution Width 16.1 H Platelet Count 55 L Mean Platelet Volume 11.4 H Neutrophils % 74.4 Lymphocytes % 10.7 L Monocytes % 9.8 Eosinophils % 3.7 Basophils % 0.7 Nucleated Red Blood Cells % 0.0 Neutrophils # 7.8 H Lymphocytes # 1.1 Monocytes # 1.0 H Eosinophils # 0.4 Basophils # 0.1 Nucleated Red Blood Cells # 0.0 Sodium Level 127 L Potassium Level 4.0 Chloride Level 96 L Carbon Dioxide Level 18 L Anion Gap 17 H Blood Urea Nitrogen 48 H Creatinine 1.76 H Glucose Level 102 Calcium Level 8.6 Medications Medications Current Medications Multivitamins Therapeutic (Theragran) 1 tab DAILY PO Last administered on 08:23; Admin Dose 1 TAB; Start 02/06/17 at 09:00 Thiamine HCl (Vitamin B1) 100 mg DAILY PO Last administered on 02/12/17 17:32 ; Admin Dose 100 MG; Start 02/06/17 at 09:00 Lactulose (Enulose) 20 gm Q4 PRN PO CONSTIPATION Last administered on 17:07; Admin Dose 20 GM; Start 02/06/17 at 00:00 Pantoprazole (Protonix Tab) 40 mg DAILY@06 PO Last administered on 02/12/17 06 :00; Admin Dose 40 MG; Start 02/06/17 at 06:00 Rifaximin (Xifaxan) 550 mg BID PO Last administered on 02/12/17 08:23; Admin Dose 550 MG; Start 02/06/17 at 09:00 Folic Acid (Folic Acid) 1 mg DAILY PO Last administered on 02/12/17 08:23; Admin Dose 1 MG; Start 02/06/17 at 09:00 Aripiprazole (Abilify) 1 mg HS PO Last administered on 02/11/17 20:47; Admin Dose 1 MG; Start 02/06/17 at 21:00 Morphine Sulfate (morphine) 2 mg Q3H PRN IV PAIN Last administered on 01:40; Admin Dose 2 MG; Start 02/06/17 at 01:00 Citric Acid/ Sodium Citrate (Bicitra) 30 ml TID PO Last administered on 12:29; Admin Dose 30 ML; Start 02/06/17 at 21:00 Demeclocycline HCl (Declomycin) 300 mg BID PO Last administered on 02/12/17 08 :23; Admin Dose 300 MG; Start 02/10/17 at 21:00 Propranolol HCl (Inderal) 10 mg BID PO ; Start 02/10/17 at 21:00; Status Future Hold Ondansetron HCl (Zofran Inj) 4 mg Q6H PRN IV NAUSEA AND/OR VOMITING Last administered on 02/12/17 09:19; Admin Dose 4 MG; Start 02/12/17 at 09:30 JANKI YOUNGBLOOD NP February 12, 2017 18:00
--- NOTE | 2017-02-12 20:19 | CONS ---
Date/Time of Note Date/Time of Note DATE: 02/12/17 TIME: 20:17 Assessment/Plan Assessment/Plan Additional Assessment/Plan 1. Hyponatremia likely secondary to liver cirrhosis. 2. no heaptorenal syndrome 3. Acute kidney injury, likely secondary to prerenal azotemia in the setting of decompensated liver cirrhosis. 4. 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 5. History of recurrent ascites, status post last paracentesis done 3 weeks ago , 1.6 liters of fluid was removed. 6. Acute hyperkalemia, possibly secondary to Bactrim.- now resolved PLAN: US of abdomen did not show ascites, Gallstones within the distended gallbladder and mild gallbladder wall thickening.mild CBD dilatation- pt abdomen getting distended agani, need possibel US guided paracentesis - pt is not a candidate for Tolvaptan due to elevated LFTs, on demeclocycline 300mg po BID, tertiary care center referral for liver transplant evaluation bicitra for metabolic acidosis will follow up Consultation Date/Type/Reason Admit Date/Time February 05, 2017 at 18:37 Initial Consult Date 02/06/17 Type of Consultation: Nephrology Referring Provider: CARL GRANT MD 24 HR Interval Summary Free Text/Dictation Na 127, BUN/Cr slightly went up Exam/Review of Systems Vital Signs Vitals Vital Signs Date Time Temp Pulse Resp B/P Pulse Ox O2 Delivery O2 Flow Rate FiO2 02/12/17 20:09 69 02/12/17 16:21 97.6 18 87/52 100 02/10/17 05:22 Room Air Intake and Output 02/11/17 02/11/17 02/12/17 15:00 23:00 07:00 Intake Total 900 ml Balance 900 ml Exam Constitutional: alert, oriented, well developed, jaunduced Head: normocephalic Eyes: icteric ENMT: nl external ears & nose Neck: non-tender Respiratory: clear to auscultation Cardiovascular: nl pulses Gastrointestinal: distended, ascites Musculoskeletal: nl extremities to inspection Extremities: normal pulses, bruises Neurological: nl mental status, nl speech Results Result Diagram: 02/12/17 1010 02/12/17 1010 Results 24 hrs Laboratory Tests Test 02/12/17 10:10 White Blood Count 10.4 Red Blood Count 2.77 L Hemoglobin 9.3 L Hematocrit 25.7 L Mean Corpuscular Volume 92.8 Mean Corpuscular Hemoglobin 33.6 H Mean Corpuscular Hemoglobin Concent 36.2 Red Cell Distribution Width 16.1 H Platelet Count 55 L Mean Platelet Volume 11.4 H Neutrophils % 74.4 Lymphocytes % 10.7 L Monocytes % 9.8 Eosinophils % 3.7 Basophils % 0.7 Nucleated Red Blood Cells % 0.0 Neutrophils # 7.8 H Lymphocytes # 1.1 Monocytes # 1.0 H Eosinophils # 0.4 Basophils # 0.1 Nucleated Red Blood Cells # 0.0 Sodium Level 127 L Potassium Level 4.0 Chloride Level 96 L Carbon Dioxide Level 18 L Anion Gap 17 H Blood Urea Nitrogen 48 H Creatinine 1.76 H Glucose Level 102 Calcium Level 8.6 Medications Medications Current Medications Multivitamins Therapeutic (Theragran) 1 tab DAILY PO Last administered on 08:23; Admin Dose 1 TAB; Start 02/06/17 at 09:00 Thiamine HCl (Vitamin B1) 100 mg DAILY PO Last administered on 02/12/17 17:32 ; Admin Dose 100 MG; Start 02/06/17 at 09:00 Lactulose (Enulose) 20 gm Q4 PRN PO CONSTIPATION Last administered on 17:07; Admin Dose 20 GM; Start 02/06/17 at 00:00 Pantoprazole (Protonix Tab) 40 mg DAILY@06 PO Last administered on 02/12/17 06 :00; Admin Dose 40 MG; Start 02/06/17 at 06:00 Rifaximin (Xifaxan) 550 mg BID PO Last administered on 02/12/17 08:23; Admin Dose 550 MG; Start 02/06/17 at 09:00 Folic Acid (Folic Acid) 1 mg DAILY PO Last administered on 02/12/17 08:23; Admin Dose 1 MG; Start 02/06/17 at 09:00 Aripiprazole (Abilify) 1 mg HS PO Last administered on 02/11/17 20:47; Admin Dose 1 MG; Start 02/06/17 at 21:00 Morphine Sulfate (morphine) 2 mg Q3H PRN IV PAIN Last administered on 01:40; Admin Dose 2 MG; Start 02/06/17 at 01:00 Citric Acid/ Sodium Citrate (Bicitra) 30 ml TID PO Last administered on 12:29; Admin Dose 30 ML; Start 02/06/17 at 21:00 Demeclocycline HCl (Declomycin) 300 mg BID PO Last administered on 02/12/17 08 :23; Admin Dose 300 MG; Start 02/10/17 at 21:00 Propranolol HCl (Inderal) 10 mg BID PO ; Start 02/10/17 at 21:00; Status Future Hold Ondansetron HCl (Zofran Inj) 4 mg Q6H PRN IV NAUSEA AND/OR VOMITING Last administered on 02/12/17 09:19; Admin Dose 4 MG; Start 02/12/17 at 09:30 ELLIOT PARRA MD February 12, 2017 20:19
[2017-02-12] MEDS: ARIPIPRAZOLE 2 MG TAB PO SCH (21:02)
[2017-02-13] VITALS (12 sets, daily range): BP systolic 91–123; BP diastolic 55–79; PULSE 57–71; RESP 16–19
[2017-02-13] MEDS: morphine 2 MG INJ IV PRN ×3 (01:58→20:01)
[2017-02-13] MEDS: PANTOPRAZOLE (EC) 40 MG TAB PO SCH (06:43)
[2017-02-13] MEDS: CITRIC ACID/SODIUM CITRATE 15 ML CUP PO SCH ×3 (08:38→20:00)
[2017-02-13] MEDS: FOLIC ACID 1 MG TAB PO SCH (08:38)
[2017-02-13] MEDS: THIAMINE 100 MG TAB PO SCH (08:38)
[2017-02-13] MEDS: MULTIVITAMINS THERAPEUTIC TAB PO SCH (08:38)
[2017-02-13] MEDS: RIFAXIMIN 550 MG TAB PO SCH ×2 (08:38→20:01)
[2017-02-13] MEDS: DEMECLOCYCLINE 150 MG TAB PO SCH ×2 (08:38→20:02)
--- NOTE | 2017-02-13 13:07 | CONS ---
Date/Time of Note Date/Time of Note DATE: 02/13/17 TIME: 13:03 Consult Date/Type/Reason Admit Date/Time February 05, 2017 at 18:37 Initial Consult Date 02/07/17 Type of Consultation: Nephrology Ordering Provider: CARL GRANT MD Subjective nad, resting in bed, going to use bathroom for BM- denies any abdominal pain, nausea, vomitting. Denies any chest pain, shortness of breath. dw staff Objective Vital Signs Date Time Temp Pulse Resp B/P Pulse Ox O2 Delivery O2 Flow Rate FiO2 02/13/17 12:19 60 02/13/17 11:49 97.5 18 100/56 100 02/10/17 05:22 Room Air Intake and Output 02/12/17 02/12/17 02/13/17 15:00 23:00 07:00 Intake Total 1040 ml 500 ml Output Total 100 ml Balance 940 ml 500 ml Exam Exam Constitutional: alert, oriented, well developed, jaunduced Head: normocephalic Eyes: icteric ENMT: nl external ears & nose Neck: non-tender Respiratory: clear to auscultation Cardiovascular: nl pulses Gastrointestinal: distended, ascites Musculoskeletal: nl extremities to inspection Extremities: normal pulses, bruises Neurological: nl mental status, nl speech Results/Medications Result Diagram: 02/12/17 1010 02/12/17 1010 Medications Current Medications Multivitamins Therapeutic (Theragran) 1 tab DAILY PO Last administered on 08:38; Admin Dose 1 TAB; Start 02/06/17 at 09:00 Thiamine HCl (Vitamin B1) 100 mg DAILY PO Last administered on 02/13/17 08:38 ; Admin Dose 100 MG; Start 02/06/17 at 09:00 Lactulose (Enulose) 20 gm Q4 PRN PO CONSTIPATION Last administered on 17:07; Admin Dose 20 GM; Start 02/06/17 at 00:00 Pantoprazole (Protonix Tab) 40 mg DAILY@06 PO Last administered on 02/13/17 06 :43; Admin Dose 40 MG; Start 02/06/17 at 06:00 Rifaximin (Xifaxan) 550 mg BID PO Last administered on 02/13/17 08:38; Admin Dose 550 MG; Start 02/06/17 at 09:00 Folic Acid (Folic Acid) 1 mg DAILY PO Last administered on 02/13/17 08:38; Admin Dose 1 MG; Start 02/06/17 at 09:00 Aripiprazole (Abilify) 1 mg HS PO Last administered on 02/12/17 21:02; Admin Dose 1 MG; Start 02/06/17 at 21:00 Morphine Sulfate (morphine) 2 mg Q3H PRN IV PAIN Last administered on 08:41; Admin Dose 2 MG; Start 02/06/17 at 01:00 Citric Acid/ Sodium Citrate (Bicitra) 30 ml TID PO Last administered on 08:38; Admin Dose 30 ML; Start 02/06/17 at 21:00 Demeclocycline HCl (Declomycin) 300 mg BID PO Last administered on 02/13/17 08 :38; Admin Dose 300 MG; Start 02/10/17 at 21:00 Propranolol HCl (Inderal) 10 mg BID PO ; Start 02/10/17 at 21:00; Status Future Hold Ondansetron HCl (Zofran Inj) 4 mg Q6H PRN IV NAUSEA AND/OR VOMITING Last administered on 02/12/17 09:19; Admin Dose 4 MG; Start 02/12/17 at 09:30 Assessment/Plan Additional Assessment/Plan 1. Hyponatremia - 127, likely secondary to liver cirrhosis. 2. no hepatorenal syndrome 3. Acute kidney injury, likely secondary to prerenal azotemia in the setting of decompensated liver cirrhosis. 4. 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 5. History of recurrent ascites, status post last paracentesis done 3 weeks ago , 1.6 liters of fluid was removed. 6. Acute hyperkalemia, possibly secondary to Bactrim.- now resolved PLAN: US of abdomen did not show ascites, Gallstones within the distended gallbladder and mild gallbladder wall thickening.mild CBD dilatation- pt abdomen getting distended agani, need possibel US guided paracentesis - pt is not a candidate for Tolvaptan due to elevated LFTs, on demeclocycline 300mg po BID, tertiary care center referral for liver transplant evaluation - bicitra for metabolic acidosis will follow up Further recommendations depend upon patient's clinical course. Plan of care discussed with Dr Emily Robles/staff DAFNE LECHUGA February 13, 2017 13:07
--- NOTE | 2017-02-13 13:30 | PN ---
Date/Time of Note Date/Time of Note DATE: 02/13/17 TIME: 13:29 Assessment/Plan VTE Prophylaxis VTE Prophylaxis Intervention: other Lines/Catheters [facility]from [facility] Saline Lock Assessment/Plan Chief Complaint/Hosp Course - Liver cirrhosis. Dr. Zelaya is following in cart in gastroenterology consultation. - Ascites secondary to liver cirrhosis. - Hepatic encephalopathy. Continue lactulose and rifaximin. Monitor ammonia level. - Acute kidney injury, rule out hepatorenal syndrome. Dr. Robles is following in nephrology consultation. - Human immunodeficiency virus positive status. Dr. Ryan is following in infectious disease consultation. - Thrombocytopenia secondary to alcoholic liver cirrhosis and possible human immunodeficiency virus. Dr. Cabral is following in hematology consultation. - Microcytic anemia. Status post transfusion, continue to monitor hemoglobin and hematocrit. - Coagulopathy. - Cholelithiasis. - Hyponatremia Problems: Subjective 24 Hr Interval Summary Free Text/Dictation Patient is having more difficulty with shortness of breath Exam/Review of Systems Vital Signs Vitals Vital Signs Date Time Temp Pulse Resp B/P Pulse Ox O2 Delivery O2 Flow Rate FiO2 02/13/17 12:19 60 02/13/17 11:49 97.5 18 100/56 100 02/10/17 05:22 Room Air Intake and Output 02/12/17 02/12/17 02/13/17 15:00 23:00 07:00 Intake Total 1040 ml 500 ml Output Total 100 ml Balance 940 ml 500 ml Exam Constitutional: well developed Head: atraumatic, normocephalic Neck: supple Respiratory: diminished breath sounds Cardiovascular: regular rate and rhythm Gastrointestinal: distended, soft Extremities: normal pulses Results Result Diagram: 02/12/17 1010 02/12/17 1010 Medications Medications Current Medications Multivitamins Therapeutic (Theragran) 1 tab DAILY PO Last administered on 08:38; Admin Dose 1 TAB; Start 02/06/17 at 09:00 Thiamine HCl (Vitamin B1) 100 mg DAILY PO Last administered on 02/13/17 08:38 ; Admin Dose 100 MG; Start 02/06/17 at 09:00 Lactulose (Enulose) 20 gm Q4 PRN PO CONSTIPATION Last administered on 17:07; Admin Dose 20 GM; Start 02/06/17 at 00:00 Pantoprazole (Protonix Tab) 40 mg DAILY@06 PO Last administered on 02/13/17 06 :43; Admin Dose 40 MG; Start 02/06/17 at 06:00 Rifaximin (Xifaxan) 550 mg BID PO Last administered on 02/13/17 08:38; Admin Dose 550 MG; Start 02/06/17 at 09:00 Folic Acid (Folic Acid) 1 mg DAILY PO Last administered on 02/13/17 08:38; Admin Dose 1 MG; Start 02/06/17 at 09:00 Aripiprazole (Abilify) 1 mg HS PO Last administered on 02/12/17 21:02; Admin Dose 1 MG; Start 02/06/17 at 21:00 Morphine Sulfate (morphine) 2 mg Q3H PRN IV PAIN Last administered on 08:41; Admin Dose 2 MG; Start 02/06/17 at 01:00 Citric Acid/ Sodium Citrate (Bicitra) 30 ml TID PO Last administered on 08:38; Admin Dose 30 ML; Start 02/06/17 at 21:00 Demeclocycline HCl (Declomycin) 300 mg BID PO Last administered on 02/13/17 08 :38; Admin Dose 300 MG; Start 02/10/17 at 21:00 Propranolol HCl (Inderal) 10 mg BID PO ; Start 02/10/17 at 21:00; Status Future Hold Ondansetron HCl (Zofran Inj) 4 mg Q6H PRN IV NAUSEA AND/OR VOMITING Last administered on 02/12/17 09:19; Admin Dose 4 MG; Start 02/12/17 at 09:30 TRISH TAMAYO February 13, 2017 13:30
--- NOTE | 2017-02-13 14:34 | CONS ---
Date/Time of Note Date/Time of Note DATE: 02/13/17 TIME: 14:33 Assessment/Plan Assessment/Plan Chief Complaint/Hosp Course IMPRESSION: 1. Hyponatremia secondary to liver cirrhosis. 2. Acute kidney injury without heptorenal syndrome, likely secondary to prerenal azotemia in the setting of decompensated liver cirrhosis. 3. 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 4. History of recurrent ascites, status post last paracentesis done 3 weeks ago , 1.6 liters of fluid was removed. 5. Acute hyperkalemia, possibly secondary to Bactrim. PLAN: - Pt abdomen getting distended aganin, may need US guided paracentesis if more distended - Tertiary care center referral for liver transplant evaluation if patient is not an active drinker - continue lactulose and rifaximen for hepatic encephalopathy - continue low dose lasix, titrate as tolerated by kidney function - add spironolactone if potassium normalizes. Problems: Consultation Date/Type/Reason Admit Date/Time February 05, 2017 at 18:37 Initial Consult Date 02/07/17 Type of Consultation: GI Referring Provider: CARL GRANT MD 24 HR Interval Summary Free Text/Dictation sitting, tolerating oral, reduced abdominal pain Constitutional: improved Exam/Review of Systems Vital Signs Vitals Vital Signs Date Time Temp Pulse Resp B/P Pulse Ox O2 Delivery O2 Flow Rate FiO2 02/13/17 12:19 60 02/13/17 11:49 97.5 18 100/56 100 02/10/17 05:22 Room Air Intake and Output 02/12/17 02/12/17 02/13/17 15:00 23:00 07:00 Intake Total 1040 ml 500 ml Output Total 100 ml Balance 940 ml 500 ml Exam Constitutional: alert Psych: nl mood/affect, no complaints Head: atraumatic, normocephalic Eyes: EOMI, icteric ENMT: mucosa pink and moist, nl external ears & nose, nl lips & teeth, nl nasal mucosa & septum Neck: non-tender, supple Respiratory: clear to auscultation, normal air movement Cardiovascular: nl pulses, regular rate and rhythm Gastrointestinal: bowel sounds, distended, soft Results Result Diagram: 02/12/17 1010 02/12/17 1010 Medications Medications Current Medications Multivitamins Therapeutic (Theragran) 1 tab DAILY PO Last administered on 08:38; Admin Dose 1 TAB; Start 02/06/17 at 09:00 Thiamine HCl (Vitamin B1) 100 mg DAILY PO Last administered on 02/13/17 08:38 ; Admin Dose 100 MG; Start 02/06/17 at 09:00 Lactulose (Enulose) 20 gm Q4 PRN PO CONSTIPATION Last administered on 17:07; Admin Dose 20 GM; Start 02/06/17 at 00:00 Pantoprazole (Protonix Tab) 40 mg DAILY@06 PO Last administered on 02/13/17 06 :43; Admin Dose 40 MG; Start 02/06/17 at 06:00 Rifaximin (Xifaxan) 550 mg BID PO Last administered on 02/13/17 08:38; Admin Dose 550 MG; Start 02/06/17 at 09:00 Folic Acid (Folic Acid) 1 mg DAILY PO Last administered on 02/13/17 08:38; Admin Dose 1 MG; Start 02/06/17 at 09:00 Aripiprazole (Abilify) 1 mg HS PO Last administered on 02/12/17 21:02; Admin Dose 1 MG; Start 02/06/17 at 21:00 Morphine Sulfate (morphine) 2 mg Q3H PRN IV PAIN Last administered on 08:41; Admin Dose 2 MG; Start 02/06/17 at 01:00 Citric Acid/ Sodium Citrate (Bicitra) 30 ml TID PO Last administered on 14:02; Admin Dose 30 ML; Start 02/06/17 at 21:00 Demeclocycline HCl (Declomycin) 300 mg BID PO Last administered on 02/13/17 08 :38; Admin Dose 300 MG; Start 02/10/17 at 21:00 Propranolol HCl (Inderal) 10 mg BID PO ; Start 02/10/17 at 21:00; Status Future Hold Ondansetron HCl (Zofran Inj) 4 mg Q6H PRN IV NAUSEA AND/OR VOMITING Last administered on 02/12/17 09:19; Admin Dose 4 MG; Start 02/12/17 at 09:30 SARAI BALDWIN MD February 13, 2017 14:34
--- NOTE | 2017-02-13 14:52 | CONS ---
Date/Time of Note Date/Time of Note DATE: 02/13/17 TIME: 14:44 Assessment/Plan Assessment/Plan Additional Assessment/Plan Atypical chest pain Diastolic heart failure Abnormal EKG Liver Cirrhosis Alcohol abuse Substance abuse HIV Renal failure Anemia Thrombocytopenia Asymptomatic hemodynamically stable Heat failure clinically compensated Discontinued Lasix Continue lactulose Continue Rifaximin Continue GI and DVT Prophylaxis Consultation Date/Type/Reason Admit Date/Time February 05, 2017 at 18:37 Initial Consult Date 02/07/17 Type of Consultation: GI Referring Provider: CARL GRANT MD Exam/Review of Systems Vital Signs Vitals Vital Signs Date Time Temp Pulse Resp B/P Pulse Ox O2 Delivery O2 Flow Rate FiO2 02/13/17 12:19 60 02/13/17 11:49 97.5 18 100/56 100 02/10/17 05:22 Room Air Intake and Output 02/12/17 02/12/17 02/13/17 15:00 23:00 07:00 Intake Total 1040 ml 500 ml Output Total 100 ml Balance 940 ml 500 ml Exam Constitutional: alert, oriented, well developed Head: atraumatic, normocephalic Neck: non-tender, supple Respiratory: clear to auscultation Cardiovascular: regular rate and rhythm Gastrointestinal: nl liver, spleen, non-tender, soft Extremities: normal pulses Results Result Diagram: 02/12/17 1010 02/12/17 1010 Medications Medications Current Medications Multivitamins Therapeutic (Theragran) 1 tab DAILY PO Last administered on 08:38; Admin Dose 1 TAB; Start 02/06/17 at 09:00 Thiamine HCl (Vitamin B1) 100 mg DAILY PO Last administered on 02/13/17 08:38 ; Admin Dose 100 MG; Start 02/06/17 at 09:00 Lactulose (Enulose) 20 gm Q4 PRN PO CONSTIPATION Last administered on 17:07; Admin Dose 20 GM; Start 02/06/17 at 00:00 Pantoprazole (Protonix Tab) 40 mg DAILY@06 PO Last administered on 02/13/17 06 :43; Admin Dose 40 MG; Start 02/06/17 at 06:00 Rifaximin (Xifaxan) 550 mg BID PO Last administered on 02/13/17 08:38; Admin Dose 550 MG; Start 02/06/17 at 09:00 Folic Acid (Folic Acid) 1 mg DAILY PO Last administered on 02/13/17 08:38; Admin Dose 1 MG; Start 02/06/17 at 09:00 Aripiprazole (Abilify) 1 mg HS PO Last administered on 02/12/17 21:02; Admin Dose 1 MG; Start 02/06/17 at 21:00 Morphine Sulfate (morphine) 2 mg Q3H PRN IV PAIN Last administered on 08:41; Admin Dose 2 MG; Start 02/06/17 at 01:00 Citric Acid/ Sodium Citrate (Bicitra) 30 ml TID PO Last administered on 14:02; Admin Dose 30 ML; Start 02/06/17 at 21:00 Demeclocycline HCl (Declomycin) 300 mg BID PO Last administered on 02/13/17 08 :38; Admin Dose 300 MG; Start 02/10/17 at 21:00 Propranolol HCl (Inderal) 10 mg BID PO ; Start 02/10/17 at 21:00; Status Future Hold Ondansetron HCl (Zofran Inj) 4 mg Q6H PRN IV NAUSEA AND/OR VOMITING Last administered on 02/12/17 09:19; Admin Dose 4 MG; Start 02/12/17 at 09:30 COLLEEN ALVARADO M.D. February 13, 2017 14:52
--- NOTE | 2017-02-13 15:58 | RADRPT ---
PROCEDURE: US Abdomen Limited. CLINICAL INDICATION: Evaluate amount of ascites. TECHNIQUE: Multiple real-time longitudinal and transverse images were acquired of the patient's ri ght and left abdomen utilizing a curved array transducer. COMPARISON: 02/07/2017, MRI from 02/08/2017 FINDINGS: There is trace ascites within the right and left upper abdomen. A small amount of ascites is visual ized within the left lower abdomen. No significant ascites is visualized within the right lower abd omen. RPTAT: ZZ IMPRESSION: Small amount of ascites, more prominent within the left lower abdomen. .Yany Coyle MD, MD Date Time Electronically viewed and signed by .Yany Coyle MD, MD on 02/13/2017 15:57 .T/
[2017-02-13 16:19] LABS: INR 3.61; PROTIME 36.6 Sec (12.2-14.2); PT RATIO 2.9
[2017-02-13] MEDS: ARIPIPRAZOLE 2 MG TAB PO SCH (22:25)
[2017-02-14] VITALS (13 sets, daily range): BP systolic 106–134; BP diastolic 56–80; PULSE 59–80; RESP 16–20
[2017-02-14] MEDS: morphine 2 MG INJ IV PRN ×7 (01:26→23:20)
[2017-02-14] MEDS: PANTOPRAZOLE (EC) 40 MG TAB PO SCH (06:40)
[2017-02-14 07:14] LABS: ADD SCAN DIFF NO
[2017-02-14 07:15] LABS: ABNORMAL IP MESSAGE 1; BASOPHIL # 0.1 10^3/ul (0.0-0.1); BASOPHILS % 0.5 % (0.0-2.0); EOSINOPHILS # 0.3 10^3/ul (0.0-0.5); EOSINOPHILS % 3.5 % (0.0-7.0); HEMATOCRIT 21.7 % (42.0-52.0); HEMOGLOBIN 7.9 g/dl (14.0-18.0); LYMPHOCYTES % 10.4 % (15.0-51.0); MEAN CORPUSCULAR HEMOGLOBIN 33.6 pg (29.0-33.0); MEAN CORPUSCULAR HGB CONC 36.4 g/dl (32.0-37.0); MEAN CORPUSCULAR VOLUME 92.3 fl (82.0-101.0); MEAN PLATELET VOLUME 10.5 fl (7.4-10.4); MONOCYTES % 10.8 % (0.0-11.0); NEUTROPHILS % 74.2 % (39.0-77.0); PLATELET COUNT 55 10^3/UL (140-415); RED BLOOD COUNT 2.35 10^6/ul (4.70-6.10); RED CELL DISTRIBUTION WIDTH 16.1 % (11.5-14.5); WHITE BLOOD COUNT 9.5 10^3/ul (4.8-10.8)
[2017-02-14 07:25] LABS: INR 3.59; PARTIAL THROMBOPLASTIN TIME 59.3 Sec (25.0-35.0); PROTIME 36.4 Sec (12.2-14.2); PT RATIO 2.8
[2017-02-14 07:34] LABS: CALCIUM 8.6 mg/dl (8.4-10.2); CREATININE 1.42 mg/dl (0.61-1.24); POTASSIUM 3.1 mmol/L (3.5-5.1)
[2017-02-14] MEDS: CITRIC ACID/SODIUM CITRATE 15 ML CUP PO SCH ×3 (08:12→21:00)
[2017-02-14] MEDS: FOLIC ACID 1 MG TAB PO SCH (08:13)
[2017-02-14] MEDS: RIFAXIMIN 550 MG TAB PO SCH ×2 (08:13→21:02)
[2017-02-14] MEDS: MULTIVITAMINS THERAPEUTIC TAB PO SCH (08:13)
[2017-02-14] MEDS: THIAMINE 100 MG TAB PO SCH (08:13)
[2017-02-14] MEDS: DEMECLOCYCLINE 150 MG TAB PO SCH ×2 (08:13→21:02)
[2017-02-14] MEDS: ONDANSETRON 4 MG INJ IV PRN (08:18)
--- NOTE | 2017-02-14 10:53 | PN ---
Date/Time of Note Date/Time of Note DATE: 02/14/17 TIME: 10:52 Assessment/Plan VTE Prophylaxis VTE Prophylaxis Intervention: other Lines/Catheters [facility]from [facility] Saline Lock Urinary Cath still in place: No Assessment/Plan Chief Complaint/Hosp Course - Liver cirrhosis. Dr. Zelaya is following in cart in gastroenterology consultation. - Ascites secondary to liver cirrhosis. - Hepatic encephalopathy. Continue lactulose and rifaximin. Monitor ammonia level. - Acute kidney injury, rule out hepatorenal syndrome. Dr. Robles is following in nephrology consultation. - Human immunodeficiency virus positive status. Dr. Ryan is following in infectious disease consultation. - Thrombocytopenia secondary to alcoholic liver cirrhosis and possible human immunodeficiency virus. Dr. Cabral is following in hematology consultation. - Microcytic anemia. Status post transfusion, continue to monitor hemoglobin and hematocrit. - Coagulopathy. - Cholelithiasis. - Hyponatremia Problems: Subjective 24 Hr Interval Summary Free Text/Dictation Patient still has abdominal discomfort Exam/Review of Systems Vital Signs Vitals Vital Signs Date Time Temp Pulse Resp B/P Pulse Ox O2 Delivery O2 Flow Rate FiO2 02/14/17 08:19 78 02/14/17 07:42 97.6 20 123/80 99 Intake and Output 02/13/17 02/13/17 02/14/17 15:00 23:00 07:00 Intake Total 900 ml 500 ml Output Total 100 ml Balance 800 ml 500 ml Exam Constitutional: well developed Head: atraumatic, normocephalic Neck: supple Respiratory: clear to auscultation Cardiovascular: regular rate and rhythm Gastrointestinal: non-tender, soft Extremities: normal pulses Results Result Diagram: 02/14/17 0500 02/14/17 0635 Results 24 hrs Laboratory Tests Test 02/13/17 15:45 02/14/17 05:00 02/14/17 06:35 Prothrombin Time 36.6 H 36.4 H Prothrombin Time Ratio 2.9 2.8 INR International Normalized Ratio 3.61 3.59 White Blood Count 9.5 Red Blood Count 2.35 L Hemoglobin 7.9 L Hematocrit 21.7 L Mean Corpuscular Volume 92.3 Mean Corpuscular Hemoglobin 33.6 H Mean Corpuscular Hemoglobin Concent 36.4 Red Cell Distribution Width 16.1 H Platelet Count 55 L Mean Platelet Volume 10.5 H Neutrophils % 74.2 Lymphocytes % 10.4 L Monocytes % 10.8 Eosinophils % 3.5 Basophils % 0.5 Nucleated Red Blood Cells % 0.0 Neutrophils # 7.0 Lymphocytes # 1.0 Monocytes # 1.0 H Eosinophils # 0.3 Basophils # 0.1 Nucleated Red Blood Cells # 0.0 Activated Partial Thromboplast Time 59.3 H Sodium Level 126 L Potassium Level 3.1 L Chloride Level 95 L Carbon Dioxide Level 20 L Anion Gap 14 Blood Urea Nitrogen 49 H Creatinine 1.42 H Glucose Level 102 Calcium Level 8.6 Medications Medications Current Medications Multivitamins Therapeutic (Theragran) 1 tab DAILY PO Last administered on 08:13; Admin Dose 1 TAB; Start 02/06/17 at 09:00 Thiamine HCl (Vitamin B1) 100 mg DAILY PO Last administered on 02/14/17 08:13 ; Admin Dose 100 MG; Start 02/06/17 at 09:00 Lactulose (Enulose) 20 gm Q4 PRN PO CONSTIPATION Last administered on 17:07; Admin Dose 20 GM; Start 02/06/17 at 00:00 Pantoprazole (Protonix Tab) 40 mg DAILY@06 PO Last administered on 02/14/17 06 :40; Admin Dose 40 MG; Start 02/06/17 at 06:00 Rifaximin (Xifaxan) 550 mg BID PO Last administered on 02/14/17 08:13; Admin Dose 550 MG; Start 02/06/17 at 09:00 Folic Acid (Folic Acid) 1 mg DAILY PO Last administered on 02/14/17 08:13; Admin Dose 1 MG; Start 02/06/17 at 09:00 Aripiprazole (Abilify) 1 mg HS PO Last administered on 02/13/17 22:25; Admin Dose 1 MG; Start 02/06/17 at 21:00 Morphine Sulfate (morphine) 2 mg Q3H PRN IV PAIN Last administered on 06:40; Admin Dose 2 MG; Start 02/06/17 at 01:00 Citric Acid/ Sodium Citrate (Bicitra) 30 ml TID PO Last administered on 08:12; Admin Dose 30 ML; Start 02/06/17 at 21:00 Demeclocycline HCl (Declomycin) 300 mg BID PO Last administered on 02/14/17 08 :13; Admin Dose 300 MG; Start 02/10/17 at 21:00 Propranolol HCl (Inderal) 10 mg BID PO ; Start 02/10/17 at 21:00; Status Future Hold Ondansetron HCl (Zofran Inj) 4 mg Q6H PRN IV NAUSEA AND/OR VOMITING Last administered on 02/14/17 08:18; Admin Dose 4 MG; Start 02/12/17 at 09:30 TRISH TAMAYO February 14, 2017 10:53
[2017-02-14 11:03] LABS: HEMATOCRIT 24.1 % (42.0-52.0); HEMOGLOBIN 8.8 g/dl (14.0-18.0)
[2017-02-14] MEDS ORDERED: POTASSIUM CHLORIDE (SR) 20 MEQ TAB PO STA ×2 (11:31→12:34)
--- NOTE | 2017-02-14 12:18 | CONS ---
Date/Time of Note Date/Time of Note DATE: 02/14/17 TIME: 12:16 Consult Date/Type/Reason Admit Date/Time February 05, 2017 at 18:37 Initial Consult Date 02/07/17 Type of Consultation: GI Ordering Provider: CARL GRANT MD Subjective Resting, not feeling well today, his paracentesis was cancelled due to abnormal INR causing risk of bleeding, no bleeding noted at present. dw staff Objective Vital Signs Date Time Temp Pulse Resp B/P Pulse Ox O2 Delivery O2 Flow Rate FiO2 02/14/17 11:41 97.8 69 20 112/70 100 Intake and Output 02/13/17 02/13/17 02/14/17 15:00 23:00 07:00 Intake Total 900 ml 500 ml Output Total 100 ml Balance 800 ml 500 ml Exam Constitutional: alert, oriented, well developed, jaunduced Head: normocephalic Eyes: icteric ENMT: nl external ears & nose Neck: non-tender Respiratory: clear to auscultation Cardiovascular: nl pulses Gastrointestinal: distended, ascites Musculoskeletal: nl extremities to inspection Extremities: normal pulses, bruises Neurological: nl mental status, nl speech Results/Medications Result Diagram: 02/14/17 1050 02/14/17 0635 Results 24 hrs Laboratory Tests Test 02/13/17 15:45 02/14/17 05:00 02/14/17 06:35 02/14/17 10:50 Prothrombin Time 36.6 H 36.4 H Prothrombin Time Ratio 2.9 2.8 INR International Normalized Ratio 3.61 3.59 White Blood Count 9.5 Red Blood Count 2.35 L Hemoglobin 7.9 L 8.8 L Hematocrit 21.7 L 24.1 L Mean Corpuscular Volume 92.3 Mean Corpuscular Hemoglobin 33.6 H Mean Corpuscular Hemoglobin Concent 36.4 Red Cell Distribution Width 16.1 H Platelet Count 55 L Mean Platelet Volume 10.5 H Neutrophils % 74.2 Lymphocytes % 10.4 L Monocytes % 10.8 Eosinophils % 3.5 Basophils % 0.5 Nucleated Red Blood Cells % 0.0 Neutrophils # 7.0 Lymphocytes # 1.0 Monocytes # 1.0 H Eosinophils # 0.3 Basophils # 0.1 Nucleated Red Blood Cells # 0.0 Activated Partial Thromboplast Time 59.3 H Sodium Level 126 L Potassium Level 3.1 L Chloride Level 95 L Carbon Dioxide Level 20 L Anion Gap 14 Blood Urea Nitrogen 49 H Creatinine 1.42 H Glucose Level 102 Calcium Level 8.6 Medications Current Medications Multivitamins Therapeutic (Theragran) 1 tab DAILY PO Last administered on 08:13; Admin Dose 1 TAB; Start 02/06/17 at 09:00 Thiamine HCl (Vitamin B1) 100 mg DAILY PO Last administered on 02/14/17 08:13 ; Admin Dose 100 MG; Start 02/06/17 at 09:00 Lactulose (Enulose) 20 gm Q4 PRN PO CONSTIPATION Last administered on 17:07; Admin Dose 20 GM; Start 02/06/17 at 00:00 Pantoprazole (Protonix Tab) 40 mg DAILY@06 PO Last administered on 02/14/17 06 :40; Admin Dose 40 MG; Start 02/06/17 at 06:00 Rifaximin (Xifaxan) 550 mg BID PO Last administered on 02/14/17 08:13; Admin Dose 550 MG; Start 02/06/17 at 09:00 Folic Acid (Folic Acid) 1 mg DAILY PO Last administered on 02/14/17 08:13; Admin Dose 1 MG; Start 02/06/17 at 09:00 Aripiprazole (Abilify) 1 mg HS PO Last administered on 02/13/17 22:25; Admin Dose 1 MG; Start 02/06/17 at 21:00 Morphine Sulfate (morphine) 2 mg Q3H PRN IV PAIN Last administered on 11:16; Admin Dose 2 MG; Start 02/06/17 at 01:00 Citric Acid/ Sodium Citrate (Bicitra) 30 ml TID PO Last administered on 08:12; Admin Dose 30 ML; Start 02/06/17 at 21:00 Demeclocycline HCl (Declomycin) 300 mg BID PO Last administered on 02/14/17 08 :13; Admin Dose 300 MG; Start 02/10/17 at 21:00 Propranolol HCl (Inderal) 10 mg BID PO ; Start 02/10/17 at 21:00; Status Future Hold Ondansetron HCl (Zofran Inj) 4 mg Q6H PRN IV NAUSEA AND/OR VOMITING Last administered on 5/29/17at 08:18; Admin Dose 4 MG; Start 02/12/17 at 09:30 Assessment/Plan Additional Assessment/Plan 1. Hyponatremia - 126, likely secondary to liver cirrhosis. 2. no hepatorenal syndrome 3. Acute kidney injury, likely secondary to prerenal azotemia in the setting of decompensated liver cirrhosis. 4. 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 5. History of recurrent ascites, status post last paracentesis done 3 weeks ago , 1.6 liters of fluid was removed. 6. Acute ypokalemia- replet KCL, am labs. PLAN: US of abdomen did not show ascites, Gallstones within the distended gallbladder and mild gallbladder wall thickening.mild CBD dilatation- pt abdomen getting distended agani, need possibel US guided paracentesis - pt is not a candidate for Tolvaptan due to elevated LFTs, on demeclocycline 300mg po BID, tertiary care center referral for liver transplant evaluation - bicitra for metabolic acidosis will follow up Further recommendations depend upon patient's clinical course. Plan of care discussed with Dr Emily Robles/staff DAFNE LECHUGA February 14, 2017 12:18
--- NOTE | 2017-02-14 12:35 | CONS ---
Date/Time of Note Date/Time of Note DATE: 02/14/17 TIME: 12:33 Assessment/Plan Assessment/Plan Additional Assessment/Plan Atypical chest pain Diastolic heart failure Abnormal EKG Liver Cirrhosis Alcohol abuse Substance abuse HIV Renal failure Anemia Thrombocytopenia Asymptomatic hemodynamically stable Heat failure clinically compensated Discontinued Lasix Continue lactulose Continue Rifaximin Continue GI and DVT Prophylaxis Replete Potassium Consultation Date/Type/Reason Admit Date/Time February 05, 2017 at 18:37 Initial Consult Date 02/07/17 Type of Consultation: GI Referring Provider: CARL GRANT MD Exam/Review of Systems Vital Signs Vitals Vital Signs Date Time Temp Pulse Resp B/P Pulse Ox O2 Delivery O2 Flow Rate FiO2 02/14/17 12:16 66 02/14/17 11:41 97.8 20 112/70 100 Intake and Output 02/13/17 02/13/17 02/14/17 15:00 23:00 07:00 Intake Total 900 ml 500 ml Output Total 100 ml Balance 800 ml 500 ml Exam Head: atraumatic, normocephalic Neck: non-tender, supple Respiratory: clear to auscultation Cardiovascular: regular rate and rhythm Gastrointestinal: nl liver, spleen, non-tender, soft Extremities: normal pulses Results Result Diagram: 02/14/17 1050 02/14/17 0635 Results 24 hrs Laboratory Tests Test 02/13/17 15:45 02/14/17 05:00 02/14/17 06:35 02/14/17 10:50 Prothrombin Time 36.6 H 36.4 H Prothrombin Time Ratio 2.9 2.8 INR International Normalized Ratio 3.61 3.59 White Blood Count 9.5 Red Blood Count 2.35 L Hemoglobin 7.9 L 8.8 L Hematocrit 21.7 L 24.1 L Mean Corpuscular Volume 92.3 Mean Corpuscular Hemoglobin 33.6 H Mean Corpuscular Hemoglobin Concent 36.4 Red Cell Distribution Width 16.1 H Platelet Count 55 L Mean Platelet Volume 10.5 H Neutrophils % 74.2 Lymphocytes % 10.4 L Monocytes % 10.8 Eosinophils % 3.5 Basophils % 0.5 Nucleated Red Blood Cells % 0.0 Neutrophils # 7.0 Lymphocytes # 1.0 Monocytes # 1.0 H Eosinophils # 0.3 Basophils # 0.1 Nucleated Red Blood Cells # 0.0 Activated Partial Thromboplast Time 59.3 H Sodium Level 126 L Potassium Level 3.1 L Chloride Level 95 L Carbon Dioxide Level 20 L Anion Gap 14 Blood Urea Nitrogen 49 H Creatinine 1.42 H Glucose Level 102 Calcium Level 8.6 Medications Medications Current Medications Multivitamins Therapeutic (Theragran) 1 tab DAILY PO Last administered on 08:13; Admin Dose 1 TAB; Start 02/06/17 at 09:00 Thiamine HCl (Vitamin B1) 100 mg DAILY PO Last administered on 02/14/17 08:13 ; Admin Dose 100 MG; Start 02/06/17 at 09:00 Lactulose (Enulose) 20 gm Q4 PRN PO CONSTIPATION Last administered on 17:07; Admin Dose 20 GM; Start 02/06/17 at 00:00 Pantoprazole (Protonix Tab) 40 mg DAILY@06 PO Last administered on 02/14/17 06 :40; Admin Dose 40 MG; Start 02/06/17 at 06:00 Rifaximin (Xifaxan) 550 mg BID PO Last administered on 02/14/17 08:13; Admin Dose 550 MG; Start 02/06/17 at 09:00 Folic Acid (Folic Acid) 1 mg DAILY PO Last administered on 02/14/17 08:13; Admin Dose 1 MG; Start 02/06/17 at 09:00 Aripiprazole (Abilify) 1 mg HS PO Last administered on 02/13/17 22:25; Admin Dose 1 MG; Start 02/06/17 at 21:00 Morphine Sulfate (morphine) 2 mg Q3H PRN IV PAIN Last administered on 11:16; Admin Dose 2 MG; Start 02/06/17 at 01:00 Citric Acid/ Sodium Citrate (Bicitra) 30 ml TID PO Last administered on 08:12; Admin Dose 30 ML; Start 02/06/17 at 21:00 Demeclocycline HCl (Declomycin) 300 mg BID PO Last administered on 02/14/17 08 :13; Admin Dose 300 MG; Start 02/10/17 at 21:00 Propranolol HCl (Inderal) 10 mg BID PO ; Start 02/10/17 at 21:00; Status Future Hold Ondansetron HCl (Zofran Inj) 4 mg Q6H PRN IV NAUSEA AND/OR VOMITING Last administered on 02/14/17t 08:18; Admin Dose 4 MG; Start 02/12/17 at 09:30 COLLEEN ALVARADO M.D. February 14, 2017 12:35
--- NOTE | 2017-02-14 12:41 | CONS ---
Date/Time of Note Date/Time of Note DATE: 02/14/17 TIME: 12:39 Assessment/Plan Assessment/Plan Chief Complaint/Hosp Course IMPRESSION: 1. Hyponatremia secondary to liver cirrhosis. 2. Acute kidney injury without heptorenal syndrome, likely secondary to prerenal azotemia in the setting of decompensated liver cirrhosis. 3. 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 4. History of recurrent ascites, status post last paracentesis done 3 weeks ago , 1.6 liters of fluid was removed. 5. Acute hyperkalemia, possibly secondary to Bactrim. 6. H/o ascites, but U/S from yesterday only showed small amt of ascites PLAN: - EtOH cessation counseled - Tertiary care center referral for liver transplant evaluation if patient is not an active drinker - continue lactulose and rifaximen for hepatic encephalopathy - continue low dose lasix, titrate as tolerated by kidney function - add spironolactone if potassium normalizes. - Dr. Zelaya to resume care of this patient tomorrow. Problems: Consultation Date/Type/Reason Admit Date/Time February 05, 2017 at 18:37 Initial Consult Date 02/07/17 Type of Consultation: GI Referring Provider: CARL GRANT MD 24 HR Interval Summary Free Text/Dictation improved abdominal pain, still has sob but slightly improved, no n/v Exam/Review of Systems Vital Signs Vitals Vital Signs Date Time Temp Pulse Resp B/P Pulse Ox O2 Delivery O2 Flow Rate FiO2 02/14/17 12:16 66 02/14/17 11:41 97.8 20 112/70 100 Intake and Output 02/13/17 02/13/17 02/14/17 15:00 23:00 07:00 Intake Total 900 ml 500 ml Output Total 100 ml Balance 800 ml 500 ml Exam Constitutional: alert, well developed Psych: nl mood/affect, no complaints Head: atraumatic, normocephalic Eyes: EOMI, nl conjunctiva, nl lids, nl sclera ENMT: mucosa pink and moist, nl external ears & nose, nl lips & teeth, nl nasal mucosa & septum Neck: non-tender, supple Respiratory: clear to auscultation, normal air movement Cardiovascular: nl pulses, regular rate and rhythm Gastrointestinal: bowel sounds, distended, soft Results Result Diagram: 02/14/17 1050 02/14/17 0635 Results 24 hrs Laboratory Tests Test 02/13/17 15:45 02/14/17 05:00 02/14/17 06:35 02/14/17 10:50 Prothrombin Time 36.6 H 36.4 H Prothrombin Time Ratio 2.9 2.8 INR International Normalized Ratio 3.61 3.59 White Blood Count 9.5 Red Blood Count 2.35 L Hemoglobin 7.9 L 8.8 L Hematocrit 21.7 L 24.1 L Mean Corpuscular Volume 92.3 Mean Corpuscular Hemoglobin 33.6 H Mean Corpuscular Hemoglobin Concent 36.4 Red Cell Distribution Width 16.1 H Platelet Count 55 L Mean Platelet Volume 10.5 H Neutrophils % 74.2 Lymphocytes % 10.4 L Monocytes % 10.8 Eosinophils % 3.5 Basophils % 0.5 Nucleated Red Blood Cells % 0.0 Neutrophils # 7.0 Lymphocytes # 1.0 Monocytes # 1.0 H Eosinophils # 0.3 Basophils # 0.1 Nucleated Red Blood Cells # 0.0 Activated Partial Thromboplast Time 59.3 H Sodium Level 126 L Potassium Level 3.1 L Chloride Level 95 L Carbon Dioxide Level 20 L Anion Gap 14 Blood Urea Nitrogen 49 H Creatinine 1.42 H Glucose Level 102 Calcium Level 8.6 Medications Medications Current Medications Multivitamins Therapeutic (Theragran) 1 tab DAILY PO Last administered on 08:13; Admin Dose 1 TAB; Start 02/06/17 at 09:00 Thiamine HCl (Vitamin B1) 100 mg DAILY PO Last administered on 02/14/17 08:13 ; Admin Dose 100 MG; Start 02/06/17 at 09:00 Lactulose (Enulose) 20 gm Q4 PRN PO CONSTIPATION Last administered on 17:07; Admin Dose 20 GM; Start 02/06/17 at 00:00 Pantoprazole (Protonix Tab) 40 mg DAILY@06 PO Last administered on 02/14/17 06 :40; Admin Dose 40 MG; Start 02/06/17 at 06:00 Rifaximin (Xifaxan) 550 mg BID PO Last administered on 02/14/17 08:13; Admin Dose 550 MG; Start 02/06/17 at 09:00 Folic Acid (Folic Acid) 1 mg DAILY PO Last administered on 02/14/17 08:13; Admin Dose 1 MG; Start 02/06/17 at 09:00 Aripiprazole (Abilify) 1 mg HS PO Last administered on 02/13/17 22:25; Admin Dose 1 MG; Start 02/06/17 at 21:00 Morphine Sulfate (morphine) 2 mg Q3H PRN IV PAIN Last administered on 11:16; Admin Dose 2 MG; Start 02/06/17 at 01:00 Citric Acid/ Sodium Citrate (Bicitra) 30 ml TID PO Last administered on 08:12; Admin Dose 30 ML; Start 02/06/17 at 21:00 Demeclocycline HCl (Declomycin) 300 mg BID PO Last administered on 02/14/17 08 :13; Admin Dose 300 MG; Start 02/10/17 at 21:00 Propranolol HCl (Inderal) 10 mg BID PO ; Start 02/10/17 at 21:00; Status Future Hold Ondansetron HCl (Zofran Inj) 4 mg Q6H PRN IV NAUSEA AND/OR VOMITING Last administered on 02/14/17 08:18; Admin Dose 4 MG; Start 02/12/17 at 09:30 SARAI BALDWIN MD February 14, 2017 12:41
--- NOTE | 2017-02-14 17:19 | CONS ---
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 (ordered 02.12.17) - monitor off abx Problems: Consultation Date/Type/Reason Admit Date/Time February 05, 2017 at 18:37 Initial Consult Date 02/06/17 Type of Consultation: id Referring Provider: CARL GRANT MD 24 HR Interval Summary Free Text/Dictation doing ok. no recurrent fevers Exam/Review of Systems Vital Signs Vitals Vital Signs Date Time Temp Pulse Resp B/P Pulse Ox O2 Delivery O2 Flow Rate FiO2 02/14/17 16:12 63 02/14/17 16:11 97.9 20 107/56 100 Intake and Output 02/13/17 02/13/17 02/14/17 15:00 23:00 07:00 Intake Total 900 ml 500 ml Output Total 100 ml Balance 800 ml 500 ml Exam Constitutional: alert, oriented, well developed Psych: nl mood/affect, no complaints Head: atraumatic, normocephalic Eyes: EOMI, PERRL, nl conjunctiva, nl lids, nl sclera ENMT: nl external ears & nose, nl lips & teeth, nl nasal mucosa & septum Respiratory: clear to auscultation, normal air movement Cardiovascular: nl pulses, regular rate and rhythm Gastrointestinal: nl liver, spleen, non-tender, soft Musculoskeletal: nl extremities to inspection, nl gait and stance Results Result Diagram: 02/14/17 1050 02/14/17 0635 Results 24 hrs Laboratory Tests Test 02/14/17 05:00 02/14/17 06:35 02/14/17 10:50 White Blood Count 9.5 Red Blood Count 2.35 L Hemoglobin 7.9 L 8.8 L Hematocrit 21.7 L 24.1 L Mean Corpuscular Volume 92.3 Mean Corpuscular Hemoglobin 33.6 H Mean Corpuscular Hemoglobin Concent 36.4 Red Cell Distribution Width 16.1 H Platelet Count 55 L Mean Platelet Volume 10.5 H Neutrophils % 74.2 Lymphocytes % 10.4 L Monocytes % 10.8 Eosinophils % 3.5 Basophils % 0.5 Nucleated Red Blood Cells % 0.0 Neutrophils # 7.0 Lymphocytes # 1.0 Monocytes # 1.0 H Eosinophils # 0.3 Basophils # 0.1 Nucleated Red Blood Cells # 0.0 Prothrombin Time 36.4 H Prothrombin Time Ratio 2.8 INR International Normalized Ratio 3.59 Activated Partial Thromboplast Time 59.3 H Sodium Level 126 L Potassium Level 3.1 L Chloride Level 95 L Carbon Dioxide Level 20 L Anion Gap 14 Blood Urea Nitrogen 49 H Creatinine 1.42 H Glucose Level 102 Calcium Level 8.6 Medications Medications Current Medications Multivitamins Therapeutic (Theragran) 1 tab DAILY PO Last administered on 08:13; Admin Dose 1 TAB; Start 02/06/17 at 09:00 Thiamine HCl (Vitamin B1) 100 mg DAILY PO Last administered on 02/14/17 08:13 ; Admin Dose 100 MG; Start 02/06/17 at 09:00 Lactulose (Enulose) 20 gm Q4 PRN PO CONSTIPATION Last administered on 17:07; Admin Dose 20 GM; Start 02/06/17 at 00:00 Pantoprazole (Protonix Tab) 40 mg DAILY@06 PO Last administered on 02/14/17 06 :40; Admin Dose 40 MG; Start 02/06/17 at 06:00 Rifaximin (Xifaxan) 550 mg BID PO Last administered on 02/14/17 08:13; Admin Dose 550 MG; Start 02/06/17 at 09:00 Folic Acid (Folic Acid) 1 mg DAILY PO Last administered on 02/14/17 08:13; Admin Dose 1 MG; Start 02/06/17 at 09:00 Aripiprazole (Abilify) 1 mg HS PO Last administered on 02/13/17 22:25; Admin Dose 1 MG; Start 02/06/17 at 21:00 Morphine Sulfate (morphine) 2 mg Q3H PRN IV PAIN Last administered on 14:08; Admin Dose 2 MG; Start 02/06/17 at 01:00 Citric Acid/ Sodium Citrate (Bicitra) 30 ml TID PO Last administered on 13:01; Admin Dose 30 ML; Start 02/06/17 at 21:00 Demeclocycline HCl (Declomycin) 300 mg BID PO Last administered on 02/14/17 08 :13; Admin Dose 300 MG; Start 02/10/17 at 21:00 Propranolol HCl (Inderal) 10 mg BID PO ; Start 02/10/17 at 21:00; Status Future Hold Ondansetron HCl (Zofran Inj) 4 mg Q6H PRN IV NAUSEA AND/OR VOMITING Last administered on 02/14/17 08:18; Admin Dose 4 MG; Start 02/12/17 at 09:30 XAVI GARCES MD February 14, 2017 17:19
--- NOTE | 2017-02-14 17:20 | CONS ---
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 (ordered 02.12.17) - monitor off abx Problems: Consultation Date/Type/Reason Admit Date/Time February 05, 2017 at 18:37 Initial Consult Date 02/06/17 Type of Consultation: id Referring Provider: CARL GRANT MD Exam/Review of Systems Vital Signs Vitals Vital Signs Date Time Temp Pulse Resp B/P Pulse Ox O2 Delivery O2 Flow Rate FiO2 02/14/17 16:12 63 02/14/17 16:11 97.9 20 107/56 100 Intake and Output 02/13/17 02/13/17 02/14/17 15:00 23:00 07:00 Intake Total 900 ml 500 ml Output Total 100 ml Balance 800 ml 500 ml Results Result Diagram: 02/14/17 1050 02/14/17 0635 Results 24 hrs Laboratory Tests Test 02/14/17 05:00 02/14/17 06:35 02/14/17 10:50 White Blood Count 9.5 Red Blood Count 2.35 L Hemoglobin 7.9 L 8.8 L Hematocrit 21.7 L 24.1 L Mean Corpuscular Volume 92.3 Mean Corpuscular Hemoglobin 33.6 H Mean Corpuscular Hemoglobin Concent 36.4 Red Cell Distribution Width 16.1 H Platelet Count 55 L Mean Platelet Volume 10.5 H Neutrophils % 74.2 Lymphocytes % 10.4 L Monocytes % 10.8 Eosinophils % 3.5 Basophils % 0.5 Nucleated Red Blood Cells % 0.0 Neutrophils # 7.0 Lymphocytes # 1.0 Monocytes # 1.0 H Eosinophils # 0.3 Basophils # 0.1 Nucleated Red Blood Cells # 0.0 Prothrombin Time 36.4 H Prothrombin Time Ratio 2.8 INR International Normalized Ratio 3.59 Activated Partial Thromboplast Time 59.3 H Sodium Level 126 L Potassium Level 3.1 L Chloride Level 95 L Carbon Dioxide Level 20 L Anion Gap 14 Blood Urea Nitrogen 49 H Creatinine 1.42 H Glucose Level 102 Calcium Level 8.6 Medications Medications Current Medications Multivitamins Therapeutic (Theragran) 1 tab DAILY PO Last administered on 08:13; Admin Dose 1 TAB; Start 02/06/17 at 09:00 Thiamine HCl (Vitamin B1) 100 mg DAILY PO Last administered on 02/14/17 08:13 ; Admin Dose 100 MG; Start 02/06/17 at 09:00 Lactulose (Enulose) 20 gm Q4 PRN PO CONSTIPATION Last administered on 17:07; Admin Dose 20 GM; Start 02/06/17 at 00:00 Pantoprazole (Protonix Tab) 40 mg DAILY@06 PO Last administered on 02/14/17 06 :40; Admin Dose 40 MG; Start 02/06/17 at 06:00 Rifaximin (Xifaxan) 550 mg BID PO Last administered on 02/14/17 08:13; Admin Dose 550 MG; Start 02/06/17 at 09:00 Folic Acid (Folic Acid) 1 mg DAILY PO Last administered on 02/14/17 08:13; Admin Dose 1 MG; Start 02/06/17 at 09:00 Aripiprazole (Abilify) 1 mg HS PO Last administered on 02/13/17 22:25; Admin Dose 1 MG; Start 02/06/17 at 21:00 Morphine Sulfate (morphine) 2 mg Q3H PRN IV PAIN Last administered on 14:08; Admin Dose 2 MG; Start 02/06/17 at 01:00 Citric Acid/ Sodium Citrate (Bicitra) 30 ml TID PO Last administered on 13:01; Admin Dose 30 ML; Start 02/06/17 at 21:00 Demeclocycline HCl (Declomycin) 300 mg BID PO Last administered on 02/14/17 08 :13; Admin Dose 300 MG; Start 02/10/17 at 21:00 Propranolol HCl (Inderal) 10 mg BID PO ; Start 02/10/17 at 21:00; Status Future Hold Ondansetron HCl (Zofran Inj) 4 mg Q6H PRN IV NAUSEA AND/OR VOMITING Last administered on 02/14/17t 08:18; Admin Dose 4 MG; Start 02/12/17 at 09:30 XAVI GARCES MD February 14, 2017 17:20
[2017-02-14] MEDS: ARIPIPRAZOLE 2 MG TAB PO SCH (21:03)
[2017-02-15] VITALS (12 sets, daily range): BP systolic 105–130; BP diastolic 56–76; PULSE 69–83; RESP 18–20
[2017-02-15] MEDS: morphine 2 MG INJ IV PRN ×4 (03:07→20:16)
[2017-02-15] MEDS: PANTOPRAZOLE (EC) 40 MG TAB PO SCH (06:20)
[2017-02-15] MEDS: DEMECLOCYCLINE 150 MG TAB PO SCH ×2 (08:42→20:17)
[2017-02-15] MEDS: RIFAXIMIN 550 MG TAB PO SCH ×2 (08:42→20:17)
[2017-02-15] MEDS: FOLIC ACID 1 MG TAB PO SCH (08:42)
[2017-02-15] MEDS: MULTIVITAMINS THERAPEUTIC TAB PO SCH (08:42)
[2017-02-15] MEDS: THIAMINE 100 MG TAB PO SCH (08:42)
[2017-02-15] MEDS: CITRIC ACID/SODIUM CITRATE 15 ML CUP PO SCH ×3 (08:42→20:18)
[2017-02-15 10:04] LABS: ADD SCAN DIFF NO
--- NOTE | 2017-02-15 10:12 | CONS ---
Date/Time of Note Date/Time of Note DATE: 02/15/17 TIME: 10:10 Assessment/Plan Assessment/Plan Additional Assessment/Plan 1. Exertional chest pain, assess for acute coronary syndrome.-negative troponin x 3. EF >65% by echo this admit - no cP now 2. Dyspnea on exertion, assess for congestive heart failure.-increased BNP - con't to remove fluid, likely liver disease related 3. Abnormal electrocardiogram, assess for acute coronary syndrome.-negative troponin x 3/NL EF by echo >65% this admit 4. Liver cirrhosis- chronic 5. Nausea, vomiting. 6. ETOH abuse- d/c advised. 7. Polysubstance abuse. 8. Human immunodeficiency virus positivity. 9. Renal failure. 10. Hyponatremia. 11. Coagulopathy. 12. Anemia. 13. Thrombocytopenia. 14.Hypotension-intermittent/labile Consultation Date/Type/Reason Admit Date/Time February 05, 2017 at 18:37 Initial Consult Date 02/07/17 Type of Consultation: id Referring Provider: CARL GRANT MD 24 HR Interval Summary Free Text/Dictation NO acute events - awaiting abdominal fluid to be removed if INR ok ROS: No fever, no chills, no nausea, no vomiting, no diarrhea/constipation No recent weight changes No chest pain, no PND, no orthopnea No dizziness, blurred vision No thirst, no heat or cold intolerance Exam/Review of Systems Vital Signs Vitals Vital Signs Date Time Temp Pulse Resp B/P Pulse Ox O2 Delivery O2 Flow Rate FiO2 02/15/17 08:16 83 02/15/17 07:44 97.8 20 118/73 100 Intake and Output 02/14/17 02/14/17 02/15/17 15:00 23:00 07:00 Intake Total 700 ml 400 ml Output Total 1 ml Balance 699 ml 400 ml Exam General: WN/WD/NAD, AOx 3 HEENT: jaundice NECK: JVD elevated, no thyromegaly Lymph: no lymphadenopathy HEART: regular with no S3, II/ systolic murmur at apex LUNGS: Coarse sounds ABD: soft, NT, ND, +BS, fluid wave : Intact Neuro: non focal SKIN: chronic changes EXT: 2+ edema Results Result Diagram: 02/14/17 1050 02/14/17 0635 Results 24 hrs Laboratory Tests Test 02/14/17 10:50 5/30/17 05:08 02/15/17 08:50 Hemoglobin 8.8 L Hematocrit 24.1 L Lab Scanned Report BLOOD TRANSFUSION REFERENCE LAB Medications Medications Current Medications Multivitamins Therapeutic (Theragran) 1 tab DAILY PO Last administered on 08:42; Admin Dose 1 TAB; Start 02/06/17 at 09:00 Thiamine HCl (Vitamin B1) 100 mg DAILY PO Last administered on 02/15/17 08:42 ; Admin Dose 100 MG; Start 02/06/17 at 09:00 Lactulose (Enulose) 20 gm Q4 PRN PO CONSTIPATION Last administered on 17:07; Admin Dose 20 GM; Start 02/06/17 at 00:00 Pantoprazole (Protonix Tab) 40 mg DAILY@06 PO Last administered on 02/15/17 06 :20; Admin Dose 40 MG; Start 02/06/17 at 06:00 Rifaximin (Xifaxan) 550 mg BID PO Last administered on 02/15/17 08:42; Admin Dose 550 MG; Start 02/06/17 at 09:00 Folic Acid (Folic Acid) 1 mg DAILY PO Last administered on 02/15/17 08:42; Admin Dose 1 MG; Start 02/06/17 at 09:00 Aripiprazole (Abilify) 1 mg HS PO Last administered on 02/14/17 21:03; Admin Dose 1 MG; Start 02/06/17 at 21:00 Morphine Sulfate (morphine) 2 mg Q3H PRN IV PAIN Last administered on 03:07; Admin Dose 2 MG; Start 02/06/17 at 01:00 Citric Acid/ Sodium Citrate (Bicitra) 30 ml TID PO Last administered on 08:42; Admin Dose 30 ML; Start 02/06/17 at 21:00 Demeclocycline HCl (Declomycin) 300 mg BID PO Last administered on 02/15/17 08 :42; Admin Dose 300 MG; Start 02/10/17 at 21:00 Propranolol HCl (Inderal) 10 mg BID PO ; Start 02/10/17 at 21:00; Status Future Hold Ondansetron HCl (Zofran Inj) 4 mg Q6H PRN IV NAUSEA AND/OR VOMITING Last administered on 02/14/17t 08:18; Admin Dose 4 MG; Start 02/12/17 at 09:30 BATSHEVA VITAL MD February 15, 2017 10:12
[2017-02-15 10:13] LABS: ABNORMAL IP MESSAGE 1; BASOPHIL # 0.1 10^3/ul (0.0-0.1); BASOPHILS % 0.6 % (0.0-2.0); EOSINOPHILS # 0.4 10^3/ul (0.0-0.5); EOSINOPHILS % 3.4 % (0.0-7.0); HEMATOCRIT 25.8 % (42.0-52.0); LYMPHOCYTES % 9.1 % (15.0-51.0); MEAN CORPUSCULAR HGB CONC 34.9 g/dl (32.0-37.0); MEAN CORPUSCULAR VOLUME 94.5 fl (82.0-101.0); MEAN PLATELET VOLUME 11.5 fl (7.4-10.4); MONOCYTE # 0.9 10^3/ul (0.3-0.9); MONOCYTES % 8.2 % (0.0-11.0); NEUTROPHIL # 8.4 10^3/ul (1.6-7.5); NEUTROPHILS % 78.1 % (39.0-77.0); PLATELET COUNT 64 10^3/UL (140-415); RED BLOOD COUNT 2.73 10^6/ul (4.70-6.10); RED CELL DISTRIBUTION WIDTH 16.5 % (11.5-14.5); WHITE BLOOD COUNT 10.8 10^3/ul (4.8-10.8)
[2017-02-15 10:24] LABS: INR 2.57; PARTIAL THROMBOPLASTIN TIME 47.9 Sec (25.0-35.0); PROTIME 27.9 Sec (12.2-14.2); PT RATIO 2.2
[2017-02-15 10:25] LABS: CALCIUM 9.3 mg/dl (8.4-10.2); CREATININE 1.51 mg/dl (0.61-1.24); POTASSIUM 3.8 mmol/L (3.5-5.1)
--- NOTE | 2017-02-15 11:21 | CONS ---
Date/Time of Note Date/Time of Note DATE: 02/15/17 TIME: 11:14 Assessment/Plan Assessment/Plan Chief Complaint/Hosp Course The patient is a 56-year-old male patient with a history of alcoholic liver cirrhosis, hemophilia, admitted with hepatorenal syndrome-nephrology. No active bleeding. Hematology consulted due to history of hemophilia and thrombocytopenia. # Thrombocytopenia, likely related to alcoholic liver cirrhosis and splenomegaly - platelet count 79 at [facility], now stable at 50-60K. Continue to monitor, no evidence of bleeding - Transfuse < 10, < 50 if bleeding, otherwise monitor - HIV screen positive, however HIV Antibody 1/2 confirm negative, probably false positive per ID. Pending 4th generation HIV testing (ordered 02/12/17). Appreciate ID recs. - Hepatitis panel negative, unlikely DIC as prolongation of caogs and low fibrinogen likely related to liver disease. No need to give cryoprecipitate unless patient bleeding. - Abdominal US showed 1. Coarsened hepatic echotexture and suggested liver surface nodularity and mild common bile duct dilatation. - MRI Abdomen 02/08/17 showed 1. Cirrhosis without definite evidence of focal hepatic lesion. 2. Small ascites and splenomegaly. 3. Cholelithiasis with irregular gallbladder wall thickening may be related to chronic cholecystitis however cannot rule out underlying gallbladder mass lesion. 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 Kehinde Jimenez who informed me that he does not have a history of hemophilia but rather simply coagulopathy due to liver disease. However, the patient states that he was diagnosed in his 20s with hemophilia, prior to liver disease, diagnosed by Dr. Hu (now ) in [place]. 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 Factor IX low at 28%, difficult to determine whether related to liver disease, but even if patient does have mild hemophilia B it would be mild. Pending Factor VIII level. - patient unsure whether was diagnosed with hemophilia A or B; pending Factor VIII and IX level # Macrocytic anemia, MCV 101.6, Hgb 8.5 at [facility] - Hgb 6.5 with MCV 99.0 on 02/07/17, s/p 2 units pRBCs now stable in 8-10 range. Transfuse < 8. Hgb today 9.0, confirmed with blood bank that he did not receive transfusion of pRBCs yesterday. - iron panel with Fe 109, TIBC low at 125, %87, ferritin 1250 consistent with anemia of chronic inflammation, B12/folate/TSH SNL, homocysteine elevated at 29.9; methylmalonic acid normal at 118. Therefore, patient may benefit from folate supplementation, as increased homocysteine is tied to increased cardiovascular risk and folate administration may lower homocysteine though unclear whether decreases cardiovascular risk. Patient noted to already be on folate. LDH elevated, retic count inappropriately low; haptoglobin < 15 (though likely low due to liver disease) Case management request for auth to be obtained for outpatient follow-up with me or Dr. Naya Dawson Problems: Consultation Date/Type/Reason Admit Date/Time February 05, 2017 at 18:37 Initial Consult Date 02/06/17 Type of Consultation: Hematology Referring Provider: CARL GRANT MD 24 HR Interval Summary Free Text/Dictation Patient has abdominal discomfort, pending paracentesis per patient. Exam/Review of Systems Vital Signs Vitals Vital Signs Date Time Temp Pulse Resp B/P Pulse Ox O2 Delivery O2 Flow Rate FiO2 02/15/17 08:16 83 02/15/17 07:44 97.8 20 118/73 100 Intake and Output 02/14/17 02/14/17 02/15/17 15:00 23:00 07:00 Intake Total 700 ml 400 ml Output Total 1 ml Balance 699 ml 400 ml Exam Constitutional: alert, oriented, well developed, jaunduced Head: normocephalic Eyes: icteric ENMT: nl external ears & nose Neck: non-tender Respiratory: clear to auscultation Cardiovascular: nl pulses Gastrointestinal: distended, ascites Musculoskeletal: +edema bilaterallly Extremities: normal pulses, bruises Neurological: nl mental status, nl speech Results Result Diagram: 02/15/1740 02/15/17 0940 Results 24 hrs Laboratory Tests Test 02/15/17 05:08 02/15/17 08:50 02/15/17 09:40 Lab Scanned Report BLOOD TRANSFUSION REFERENCE LAB White Blood Count 10.8 Red Blood Count 2.73 L Hemoglobin 9.0 L Hematocrit 25.8 L Mean Corpuscular Volume 94.5 Mean Corpuscular Hemoglobin 33.0 Mean Corpuscular Hemoglobin Concent 34.9 Red Cell Distribution Width 16.5 H Platelet Count 64 L Mean Platelet Volume 11.5 H Neutrophils % 78.1 H Lymphocytes % 9.1 L Monocytes % 8.2 Eosinophils % 3.4 Basophils % 0.6 Nucleated Red Blood Cells % 0.0 Neutrophils # 8.4 H Lymphocytes # 1.0 Monocytes # 0.9 Eosinophils # 0.4 Basophils # 0.1 Nucleated Red Blood Cells # 0.0 Prothrombin Time 27.9 #H Prothrombin Time Ratio 2.2 INR International Normalized Ratio 2.57 Activated Partial Thromboplast Time 47.9 H Sodium Level 126 L Potassium Level 3.8 Chloride Level 94 L Carbon Dioxide Level 23 Anion Gap 13 Blood Urea Nitrogen 52 H Creatinine 1.51 H Glucose Level 92 Calcium Level 9.3 Medications Medications Current Medications Multivitamins Therapeutic (Theragran) 1 tab DAILY PO Last administered on 08:42; Admin Dose 1 TAB; Start 02/06/17 at 09:00 Thiamine HCl (Vitamin B1) 100 mg DAILY PO Last administered on 02/15/17 08:42 ; Admin Dose 100 MG; Start 02/06/17 at 09:00 Lactulose (Enulose) 20 gm Q4 PRN PO CONSTIPATION Last administered on 17:07; Admin Dose 20 GM; Start 02/06/17 at 00:00 Pantoprazole (Protonix Tab) 40 mg DAILY@06 PO Last administered on 02/15/17 06 :20; Admin Dose 40 MG; Start 02/06/17 at 06:00 Rifaximin (Xifaxan) 550 mg BID PO Last administered on 02/15/17 08:42; Admin Dose 550 MG; Start 02/06/17 at 09:00 Folic Acid (Folic Acid) 1 mg DAILY PO Last administered on 02/15/17 08:42; Admin Dose 1 MG; Start 02/06/17 at 09:00 Aripiprazole (Abilify) 1 mg HS PO Last administered on 02/14/17 21:03; Admin Dose 1 MG; Start 02/06/17 at 21:00 Morphine Sulfate (morphine) 2 mg Q3H PRN IV PAIN Last administered on 03:07; Admin Dose 2 MG; Start 02/06/17 at 01:00 Citric Acid/ Sodium Citrate (Bicitra) 30 ml TID PO Last administered on 08:42; Admin Dose 30 ML; Start 02/06/17 at 21:00 Demeclocycline HCl (Declomycin) 300 mg BID PO Last administered on 02/15/17 08 :42; Admin Dose 300 MG; Start 02/10/17 at 21:00 Propranolol HCl (Inderal) 10 mg BID PO ; Start 02/10/17 at 21:00; Status Future Hold Ondansetron HCl (Zofran Inj) 4 mg Q6H PRN IV NAUSEA AND/OR VOMITING Last administered on 02/14/17 08:18; Admin Dose 4 MG; Start 02/12/17 at 09:30 TOABRAM MD February 15, 2017 11:20
[2017-02-15] MEDS ORDERED: PHYTONADIONE (1 MG/ML PO SYG) PO ONE (14:30)
--- NOTE | 2017-02-15 14:49 | PN ---
Date/Time of Note Date/Time of Note DATE: 02/15/17 TIME: 14:40 Assessment/Plan VTE Prophylaxis VTE Prophylaxis Intervention: SCD's Lines/Catheters IV [facility] Urinary Cath still in place: No Assessment/Plan Chief Complaint/Hosp Course Patient's complains of abdominal distention, or paracentesis is ordered however is not done due to coagulopathy INR is 2.8 today. No recommendations are for FFP per hematology. patient is awake alert and oriented. ASSESSMENT AND PLAN: - Liver cirrhosis. Dr. Zelaya is following in gastroenterology consultation. - Ascites secondary to liver cirrhosis. Pending paracentesis - Hepatic encephalopathy, resolved. continue lactulose and rifaximin. - Acute kidney injury, rule out hepatorenal syndrome. Dr. Robles is following in nephrology consultation. - Human immunodeficiency virus positive status. Dr. Ryan is following in infectious disease consultation. - Thrombocytopenia secondary to alcoholic liver cirrhosis. Dr. Cabral is following in hematology consultation. - Microcytic anemia. Status post transfusion, continue to monitor hemoglobin and hematocrit. - Coagulopathy, status post FFP and vitamin K. - Cholelithiasis. Status post MRCP. no evidence of obstruction of bile duct stone. - Hyponatremia secondary to liver cirrhosis. Further recommendations based on clinical course. Plan of care discussed with Dr. James. Problems: Exam/Review of Systems Vital Signs Vitals Vital Signs Date Time Temp Pulse Resp B/P Pulse Ox O2 Delivery O2 Flow Rate FiO2 02/15/17 12:13 97.4 78 20 116/59 99 Intake and Output 02/14/17 02/14/17 02/15/17 15:00 23:00 07:00 Intake Total 700 ml 400 ml Output Total 1 ml Balance 699 ml 400 ml Exam Constitutional: alert, oriented, other (Jaundiced) Psych: no complaints Eyes: icteric Neck: supple Respiratory: clear to auscultation Cardiovascular: nl pulses, regular rate and rhythm Gastrointestinal: distended, soft Musculoskeletal: nl extremities to inspection Extremities: normal pulses Results Result Diagram: 02/15/17 0940 02/15/17 0940 Results 24 hrs Laboratory Tests Test 02/15/17 05:08 02/15/17 08:50 02/15/17 09:40 Lab Scanned Report BLOOD TRANSFUSION REFERENCE LAB White Blood Count 10.8 Red Blood Count 2.73 L Hemoglobin 9.0 L Hematocrit 25.8 L Mean Corpuscular Volume 94.5 Mean Corpuscular Hemoglobin 33.0 Mean Corpuscular Hemoglobin Concent 34.9 Red Cell Distribution Width 16.5 H Platelet Count 64 L Mean Platelet Volume 11.5 H Neutrophils % 78.1 H Lymphocytes % 9.1 L Monocytes % 8.2 Eosinophils % 3.4 Basophils % 0.6 Nucleated Red Blood Cells % 0.0 Neutrophils # 8.4 H Lymphocytes # 1.0 Monocytes # 0.9 Eosinophils # 0.4 Basophils # 0.1 Nucleated Red Blood Cells # 0.0 Prothrombin Time 27.9 #H Prothrombin Time Ratio 2.2 INR International Normalized Ratio 2.57 Activated Partial Thromboplast Time 47.9 H Sodium Level 126 L Potassium Level 3.8 Chloride Level 94 L Carbon Dioxide Level 23 Anion Gap 13 Blood Urea Nitrogen 52 H Creatinine 1.51 H Glucose Level 92 Calcium Level 9.3 Medications Medications Current Medications Multivitamins Therapeutic (Theragran) 1 tab DAILY PO Last administered on 08:42; Admin Dose 1 TAB; Start 02/06/17 at 09:00 Thiamine HCl (Vitamin B1) 100 mg DAILY PO Last administered on 02/15/17 08:42 ; Admin Dose 100 MG; Start 02/06/17 at 09:00 Lactulose (Enulose) 20 gm Q4 PRN PO CONSTIPATION Last administered on 17:07; Admin Dose 20 GM; Start 02/06/17 at 00:00 Pantoprazole (Protonix Tab) 40 mg DAILY@06 PO Last administered on 02/15/17 06 :20; Admin Dose 40 MG; Start 02/06/17 at 06:00 Rifaximin (Xifaxan) 550 mg BID PO Last administered on 02/15/17 08:42; Admin Dose 550 MG; Start 02/06/17 at 09:00 Folic Acid (Folic Acid) 1 mg DAILY PO Last administered on 02/15/17 08:42; Admin Dose 1 MG; Start 02/06/17 at 09:00 Aripiprazole (Abilify) 1 mg HS PO Last administered on 02/14/17 21:03; Admin Dose 1 MG; Start 02/06/17 at 21:00 Morphine Sulfate (morphine) 2 mg Q3H PRN IV PAIN Last administered on 12:37; Admin Dose 2 MG; Start 02/06/17 at 01:00 Citric Acid/ Sodium Citrate (Bicitra) 30 ml TID PO Last administered on 08:42; Admin Dose 30 ML; Start 02/06/17 at 21:00 Demeclocycline HCl (Declomycin) 300 mg BID PO Last administered on 02/15/17 08 :42; Admin Dose 300 MG; Start 02/10/17 at 21:00 Propranolol HCl (Inderal) 10 mg BID PO ; Start 02/10/17 at 21:00; Status Future Hold Ondansetron HCl (Zofran Inj) 4 mg Q6H PRN IV NAUSEA AND/OR VOMITING Last administered on 02/14/17 08:18; Admin Dose 4 MG; Start 02/12/17 at 09:30 Furosemide (Lasix) 20 mg BID IV ; Start 02/15/17 at 14:14; Stop 02/15/17 at 21: 01 ALIVIA ALVAREZ February 15, 2017 14:49
[2017-02-15] MEDS: FUROSEMIDE 20 MG INJ IV SCH ×2 (15:00→20:18)
--- NOTE | 2017-02-15 16:13 | CONS ---
Date/Time of Note Date/Time of Note DATE: 02/15/17 TIME: 16:12 Assessment/Plan Assessment/Plan Additional Assessment/Plan 1. Hyponatremia likely secondary to liver cirrhosis. 2. no heaptorenal syndrome 3. Acute kidney injury, likely secondary to prerenal azotemia in the setting of decompensated liver cirrhosis. 4. 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 5. History of recurrent ascites, status post last paracentesis done 3 weeks ago , 1.6 liters of fluid was removed. 6. Acute hyperkalemia, possibly secondary to Bactrim.- now resolved PLAN: US of abdomen did not show ascites, Gallstones within the distended gallbladder and mild gallbladder wall thickening.mild CBD dilatation- pt abdomen getting distended agani, need possibel US guided paracentesis - pt is not a candidate for Tolvaptan due to elevated LFTs, on demeclocycline 300mg po BID, tertiary care center referral for liver transplant evaluation bicitra for metabolic acidosis will follow up Consultation Date/Type/Reason Admit Date/Time February 05, 2017 at 18:37 Initial Consult Date 02/06/17 Type of Consultation: NEPHROLOGY Referring Provider: CARL GRANT MD 24 HR Interval Summary Free Text/Dictation Na 126, Cr 1.5, BP stable Exam/Review of Systems Vital Signs Vitals Vital Signs Date Time Temp Pulse Resp B/P Pulse Ox O2 Delivery O2 Flow Rate FiO2 02/15/17 15:54 97.6 69 20 105/56 100 Intake and Output 02/14/17 02/14/17 02/15/17 15:00 23:00 07:00 Intake Total 700 ml 400 ml Output Total 1 ml Balance 699 ml 400 ml Exam Constitutional: alert, oriented, well developed, jaunduced Head: normocephalic Eyes: icteric ENMT: nl external ears & nose Neck: non-tender Respiratory: clear to auscultation Cardiovascular: nl pulses Gastrointestinal: distended, ascites Musculoskeletal: nl extremities to inspection Extremities: normal pulses, bruises Neurological: nl mental status, nl speech Results Result Diagram: 02/15/17 0940 02/15/17 0940 Results 24 hrs Laboratory Tests Test 02/15/17 05:08 02/15/17 08:50 02/15/17 09:40 Lab Scanned Report BLOOD TRANSFUSION REFERENCE LAB White Blood Count 10.8 Red Blood Count 2.73 L Hemoglobin 9.0 L Hematocrit 25.8 L Mean Corpuscular Volume 94.5 Mean Corpuscular Hemoglobin 33.0 Mean Corpuscular Hemoglobin Concent 34.9 Red Cell Distribution Width 16.5 H Platelet Count 64 L Mean Platelet Volume 11.5 H Neutrophils % 78.1 H Lymphocytes % 9.1 L Monocytes % 8.2 Eosinophils % 3.4 Basophils % 0.6 Nucleated Red Blood Cells % 0.0 Neutrophils # 8.4 H Lymphocytes # 1.0 Monocytes # 0.9 Eosinophils # 0.4 Basophils # 0.1 Nucleated Red Blood Cells # 0.0 Prothrombin Time 27.9 #H Prothrombin Time Ratio 2.2 INR International Normalized Ratio 2.57 Activated Partial Thromboplast Time 47.9 H Sodium Level 126 L Potassium Level 3.8 Chloride Level 94 L Carbon Dioxide Level 23 Anion Gap 13 Blood Urea Nitrogen 52 H Creatinine 1.51 H Glucose Level 92 Calcium Level 9.3 Medications Medications Current Medications Multivitamins Therapeutic (Theragran) 1 tab DAILY PO Last administered on 08:42; Admin Dose 1 TAB; Start 02/06/17 at 09:00 Thiamine HCl (Vitamin B1) 100 mg DAILY PO Last administered on 02/15/17 08:42 ; Admin Dose 100 MG; Start 02/06/17 at 09:00 Lactulose (Enulose) 20 gm Q4 PRN PO CONSTIPATION Last administered on 17:07; Admin Dose 20 GM; Start 02/06/17 at 00:00 Pantoprazole (Protonix Tab) 40 mg DAILY@06 PO Last administered on 02/15/17 06 :20; Admin Dose 40 MG; Start 02/06/17 at 06:00 Rifaximin (Xifaxan) 550 mg BID PO Last administered on 02/15/17 08:42; Admin Dose 550 MG; Start 02/06/17 at 09:00 Folic Acid (Folic Acid) 1 mg DAILY PO Last administered on 02/15/17 08:42; Admin Dose 1 MG; Start 02/06/17 at 09:00 Aripiprazole (Abilify) 1 mg HS PO Last administered on 02/14/17 21:03; Admin Dose 1 MG; Start 02/06/17 at 21:00 Morphine Sulfate (morphine) 2 mg Q3H PRN IV PAIN Last administered on 15:57; Admin Dose 2 MG; Start 02/06/17 at 01:00 Citric Acid/ Sodium Citrate (Bicitra) 30 ml TID PO Last administered on 14:59; Admin Dose 30 ML; Start 02/06/17 at 21:00 Demeclocycline HCl (Declomycin) 300 mg BID PO Last administered on 02/15/17 08 :42; Admin Dose 300 MG; Start 02/10/17 at 21:00 Propranolol HCl (Inderal) 10 mg BID PO ; Start 02/10/17 at 21:00; Status Future Hold Ondansetron HCl (Zofran Inj) 4 mg Q6H PRN IV NAUSEA AND/OR VOMITING Last administered on 02/14/17 08:18; Admin Dose 4 MG; Start 02/12/17 at 09:30 Furosemide (Lasix) 20 mg BID IV Last administered on 02/15/17 15:00; Admin Dose 20 MG; Start 02/15/17 at 14:14; Stop 02/15/17 at 21:01 ELLIOT PARRA MD February 15, 2017 16:13
[2017-02-15] MEDS: ARIPIPRAZOLE 2 MG TAB PO SCH (20:17)
--- NOTE | 2017-02-15 21:01 | CONS ---
Date/Time of Note Date/Time of Note DATE: 02/15/17 TIME: 21:00 Assessment/Plan Assessment/Plan Additional Assessment/Plan IMPRESSION: 1. Hyponatremia secondary to liver cirrhosis. 2. Acute kidney injury without heptorenal syndrome, likely secondary to prerenal azotemia in the setting of decompensated liver cirrhosis. 3. 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 History of recurrent ascites, status post last paracentesis done 3 weeks ago , 1.6 liters of fluid was removed. 5. Acute hyperkalemia, possibly secondary to Bactrim. 6. H/o ascites, but U/S from yesterday only showed small amt of ascites PLAN: - EtOH cessation counseled - Tertiary care center referral for liver transplant evaluation if patient is not an active drinker - continue lactulose and rifaximen for hepatic encephalopathy - continue low dose lasix, titrate as tolerated by kidney function - add spironolactone if potassium normalizes. Consultation Date/Type/Reason Admit Date/Time February 05, 2017 at 18:37 Initial Consult Date 02/06/17 Type of Consultation: NEPHROLOGY Referring Provider: CARL GRANT MD 24 HR Interval Summary Constitutional: no complaints Exam/Review of Systems Vital Signs Vitals Vital Signs Date Time Temp Pulse Resp B/P Pulse Ox O2 Delivery O2 Flow Rate FiO2 02/15/17 19:58 97.6 74 20 123/76 100 Intake and Output 02/14/17 02/14/17 02/15/17 15:00 23:00 07:00 Intake Total 700 ml 400 ml Output Total 1 ml Balance 699 ml 400 ml Exam Constitutional: alert, oriented, well developed Psych: nl mood/affect, no complaints Head: atraumatic, normocephalic Eyes: EOMI, PERRL, nl conjunctiva, nl lids, nl sclera ENMT: nl external ears & nose, nl lips & teeth, nl nasal mucosa & septum Neck: non-tender, supple Respiratory: clear to auscultation, normal air movement Cardiovascular: nl pulses, regular rate and rhythm Gastrointestinal: nl liver, spleen, non-tender, soft Musculoskeletal: nl extremities to inspection, nl gait and stance Extremities: normal pulses Neurological: 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, nl mental status, nl speech, nl strength Skin: nl turgor, No rash or lesions Lymph: nl lymph nodes Results Result Diagram: 02/15/17 0940 02/15/17 0940 Results 24 hrs Laboratory Tests Test 02/15/17 05:08 02/15/17 08:50 02/15/17 09:40 Lab Scanned Report BLOOD TRANSFUSION REFERENCE LAB White Blood Count 10.8 Red Blood Count 2.73 L Hemoglobin 9.0 L Hematocrit 25.8 L Mean Corpuscular Volume 94.5 Mean Corpuscular Hemoglobin 33.0 Mean Corpuscular Hemoglobin Concent 34.9 Red Cell Distribution Width 16.5 H Platelet Count 64 L Mean Platelet Volume 11.5 H Neutrophils % 78.1 H Lymphocytes % 9.1 L Monocytes % 8.2 Eosinophils % 3.4 Basophils % 0.6 Nucleated Red Blood Cells % 0.0 Neutrophils # 8.4 H Lymphocytes # 1.0 Monocytes # 0.9 Eosinophils # 0.4 Basophils # 0.1 Nucleated Red Blood Cells # 0.0 Prothrombin Time 27.9 #H Prothrombin Time Ratio 2.2 INR International Normalized Ratio 2.57 Activated Partial Thromboplast Time 47.9 H Sodium Level 126 L Potassium Level 3.8 Chloride Level 94 L Carbon Dioxide Level 23 Anion Gap 13 Blood Urea Nitrogen 52 H Creatinine 1.51 H Glucose Level 92 Calcium Level 9.3 Medications Medications Current Medications Multivitamins Therapeutic (Theragran) 1 tab DAILY PO Last administered on 08:42; Admin Dose 1 TAB; Start 02/06/17 at 09:00 Thiamine HCl (Vitamin B1) 100 mg DAILY PO Last administered on 02/15/17 08:42 ; Admin Dose 100 MG; Start 02/06/17 at 09:00 Lactulose (Enulose) 20 gm Q4 PRN PO CONSTIPATION Last administered on 17:07; Admin Dose 20 GM; Start 02/06/17 at 00:00 Pantoprazole (Protonix Tab) 40 mg DAILY@06 PO Last administered on 02/15/17 06 :20; Admin Dose 40 MG; Start 02/06/17 at 06:00 Rifaximin (Xifaxan) 550 mg BID PO Last administered on 02/15/17 20:17; Admin Dose 550 MG; Start 02/06/17 at 09:00 Folic Acid (Folic Acid) 1 mg DAILY PO Last administered on 02/15/17 08:42; Admin Dose 1 MG; Start 02/06/17 at 09:00 Aripiprazole (Abilify) 1 mg HS PO Last administered on 02/15/17 20:17; Admin Dose 1 MG; Start 02/06/17 at 21:00 Morphine Sulfate (morphine) 2 mg Q3H PRN IV PAIN Last administered on 20:16; Admin Dose 2 MG; Start 02/06/17 at 01:00 Citric Acid/ Sodium Citrate (Bicitra) 30 ml TID PO Last administered on 20:18; Admin Dose 30 ML; Start 02/06/17 at 21:00 Demeclocycline HCl (Declomycin) 300 mg BID PO Last administered on 02/15/17 20 :17; Admin Dose 300 MG; Start 02/10/17 at 21:00 Propranolol HCl (Inderal) 10 mg BID PO ; Start 02/10/17 at 21:00; Status Future Hold Ondansetron HCl (Zofran Inj) 4 mg Q6H PRN IV NAUSEA AND/OR VOMITING Last administered on 02/14/17 08:18; Admin Dose 4 MG; Start 02/12/17 at 09:30 Furosemide (Lasix) 20 mg BID IV Last administered on 02/15/17 20:18; Admin Dose 20 MG; Start 02/15/17 at 14:14; Stop 02/15/17 at 21:01 IGNACIA HERR MD February 15, 2017 21:01
[2017-02-16] VITALS (12 sets, daily range): BP systolic 86–133; BP diastolic 49–61; PULSE 69–83; RESP 16–20
[2017-02-16] MEDS: morphine 2 MG INJ IV PRN ×5 (02:01→22:02)
[2017-02-16] MEDS: PANTOPRAZOLE (EC) 40 MG TAB PO SCH (06:04)
[2017-02-16 08:00] LABS: ADD SCAN DIFF NO
[2017-02-16 08:10] LABS: ABNORMAL IP MESSAGE 1; BASOPHILS % 0.3 % (0.0-2.0); EOSINOPHILS # 0.3 10^3/ul (0.0-0.5); EOSINOPHILS % 3.2 % (0.0-7.0); HEMATOCRIT 20.9 % (42.0-52.0); HEMOGLOBIN 7.4 g/dl (14.0-18.0); LYMPHOCYTES # 0.7 10^3/ul (0.8-2.9); LYMPHOCYTES % 7.3 % (15.0-51.0); MEAN CORPUSCULAR HEMOGLOBIN 33.5 pg (29.0-33.0); MEAN CORPUSCULAR HGB CONC 35.4 g/dl (32.0-37.0); MEAN CORPUSCULAR VOLUME 94.6 fl (82.0-101.0); MEAN PLATELET VOLUME 11.8 fl (7.4-10.4); MONOCYTE # 0.8 10^3/ul (0.3-0.9); MONOCYTES % 7.5 % (0.0-11.0); NEUTROPHIL # 8.3 10^3/ul (1.6-7.5); NEUTROPHILS % 80.8 % (39.0-77.0); RED BLOOD COUNT 2.21 10^6/ul (4.70-6.10); RED CELL DISTRIBUTION WIDTH 16.4 % (11.5-14.5); WHITE BLOOD COUNT 10.2 10^3/ul (4.8-10.8)
[2017-02-16 08:20] LABS: INR 3.32; PROTIME 34.2 Sec (12.2-14.2); PT RATIO 2.7
[2017-02-16 08:21] LABS: PARTIAL THROMBOPLASTIN TIME 54.7 Sec (25.0-35.0)
[2017-02-16] MEDS: CITRIC ACID/SODIUM CITRATE 15 ML CUP PO SCH ×3 (08:21→22:05)
[2017-02-16] MEDS: DEMECLOCYCLINE 150 MG TAB PO SCH (08:22)
[2017-02-16] MEDS: THIAMINE 100 MG TAB PO SCH (08:22)
[2017-02-16] MEDS: FOLIC ACID 1 MG TAB PO SCH (08:22)
[2017-02-16] MEDS: RIFAXIMIN 550 MG TAB PO SCH ×2 (08:22→22:06)
[2017-02-16] MEDS: MULTIVITAMINS THERAPEUTIC TAB PO SCH (08:22)
[2017-02-16 08:24] LABS: THROMBIN TIME 21.8 SEC (13.8-19.1)
[2017-02-16 08:40] LABS: CALCIUM 8.9 mg/dl (8.4-10.2); CREATININE 1.56 mg/dl (0.61-1.24); POTASSIUM 3.5 mmol/L (3.5-5.1)
[2017-02-16 10:03] LABS: HEMATOCRIT 21.2 % (42.0-52.0); HEMOGLOBIN 7.7 g/dl (14.0-18.0)
[2017-02-16] MEDS ORDERED: SOD CHLORIDE 0.9% 250 ML IV* ONE (10:42)
[2017-02-16 11:22] LABS: PLATELET COUNT 45 10^3/UL (140-415); PLATELET ESTIMATE PLT APPEAR DECREASED
--- NOTE | 2017-02-16 11:51 | CONS ---
Date/Time of Note Date/Time of Note DATE: 02/16/17 TIME: 11:48 Assessment/Plan Assessment/Plan Chief Complaint/Hosp Course - probable false positive HIV test: positive by an initial screen, negative by a confirmatory antibody, HIV 1 viral load was undetectable too. Pt denies a trip to or living in the parts of world endemic for HIV 2. - decompensated liver cirrhosis due to alcohol - Hyponatremia likely secondary to cirrhosis - Acute on chronic anemia requiring blood transfusion - Coagulopathy due to liver disease - Thrombocytopenia - Hyperammonemia - AGATA - Portal hypertension - Cholelithiasis - Recurrent ascites s/p paracentesis ~4 weeks ago with 1.6 L removed - S/p hyperkalemia - H/o alcoholism - H/o substance abuse recommendations: - await the results of 4th generation HIV testing. (ordered 02.12.17, Ophelia at lab said the result is not available yet) - will review the results of paracentesis - monitor off antibiotics at this time management d/w Pt, his RN and Micro at lab Problems: Consultation Date/Type/Reason Admit Date/Time February 05, 2017 at 18:37 Initial Consult Date 02/07/17 Type of Consultation: ID Referring Provider: CARL GRANT MD 24 HR Interval Summary Constitutional: no complaints Detailed Summary Eyes: no complaints ENT: no complaints Respiratory: no complaints Cardiovascular: no complaints Gastrointestinal: other (abdominal distention and pain from ascites) Genitourinary: no complaints Musculoskeletal: no complaints Skin: no complaints Neurologic: no complaints Lymphatic: other (pain from swollen legs) Exam/Review of Systems Vital Signs Vitals Vital Signs Date Time Temp Pulse Resp B/P Pulse Ox O2 Delivery O2 Flow Rate FiO2 02/16/17 09:07 76 02/16/17 07:47 98.2 20 100/52 100 Intake and Output 02/15/17 02/15/17 02/16/17 15:00 23:00 07:00 Intake Total 700 ml 500 ml Output Total 1000 ml 600 ml Balance -300 ml -100 ml Exam Constitutional: alert, oriented, well developed Psych: nl mood/affect, no complaints Head: atraumatic, normocephalic Eyes: icteric ENMT: nl external ears & nose, nl nasal mucosa & septum Neck: supple Respiratory: clear to auscultation, normal air movement Cardiovascular: nl pulses, regular rate and rhythm Gastrointestinal: ascites, bowel sounds, distended, firm, No mass Extremities: edema Neurological: BUS GIRL II-XII intact, nl mental status, nl speech, nl strength Results Result Diagram: 02/16/17 0951 02/16/17 0640 Results 24 hrs Laboratory Tests Test 02/16/17 06:40 02/16/17 08:48 02/16/17 09:51 White Blood Count 10.2 Red Blood Count 2.21 L Hemoglobin 7.4 L 7.7 L Hematocrit 20.9 L 21.2 L Mean Corpuscular Volume 94.6 Mean Corpuscular Hemoglobin 33.5 H Mean Corpuscular Hemoglobin Concent 35.4 Red Cell Distribution Width 16.4 H Platelet Count 50 L Mean Platelet Volume 11.8 H Neutrophils % 80.8 H Lymphocytes % 7.3 L Monocytes % 7.5 Eosinophils % 3.2 Basophils % 0.3 Nucleated Red Blood Cells % 0.0 Neutrophils # 8.3 H Lymphocytes # 0.7 L Monocytes # 0.8 Eosinophils # 0.3 Basophils # 0.0 Nucleated Red Blood Cells # 0.0 Differential Comment AUTO w/SCAN Platelet Estimate PLT APPEAR DECREASED Prothrombin Time 34.2 #H Prothrombin Time Ratio 2.7 INR International Normalized Ratio 3.32 Activated Partial Thromboplast Time 54.7 H Thrombin Time 21.8 H Sodium Level 123 L Potassium Level 3.5 Chloride Level 96 L Carbon Dioxide Level 20 L Anion Gap 11 Blood Urea Nitrogen 52 H Creatinine 1.56 H Glucose Level 126 Calcium Level 8.9 Lab Scanned Report REFERENCE LAB Medications Medications Current Medications Multivitamins Therapeutic (Theragran) 1 tab DAILY PO Last administered on 08:22; Admin Dose 1 TAB; Start 02/06/17 at 09:00 Thiamine HCl (Vitamin B1) 100 mg DAILY PO Last administered on 02/16/17 08:22 ; Admin Dose 100 MG; Start 02/06/17 at 09:00 Lactulose (Enulose) 20 gm Q4 PRN PO CONSTIPATION Last administered on 17:07; Admin Dose 20 GM; Start 02/06/17 at 00:00 Pantoprazole (Protonix Tab) 40 mg DAILY@06 PO Last administered on 02/16/17 06 :04; Admin Dose 40 MG; Start 02/06/17 at 06:00 Rifaximin (Xifaxan) 550 mg BID PO Last administered on 02/16/17 08:22; Admin Dose 550 MG; Start 02/06/17 at 09:00 Folic Acid (Folic Acid) 1 mg DAILY PO Last administered on 02/16/17 08:22; Admin Dose 1 MG; Start 02/06/17 at 09:00 Aripiprazole (Abilify) 1 mg HS PO Last administered on 02/15/17 20:17; Admin Dose 1 MG; Start 02/06/17 at 21:00 Morphine Sulfate (morphine) 2 mg Q3H PRN IV PAIN Last administered on 08:29; Admin Dose 2 MG; Start 02/06/17 at 01:00 Citric Acid/ Sodium Citrate (Bicitra) 30 ml TID PO Last administered on 08:21; Admin Dose 30 ML; Start 02/06/17 at 21:00 Demeclocycline HCl (Declomycin) 300 mg BID PO Last administered on 02/16/17 08 :22; Admin Dose 300 MG; Start 02/10/17 at 21:00 Propranolol HCl (Inderal) 10 mg BID PO ; Start 02/10/17 at 21:00; Status Future Hold Ondansetron HCl (Zofran Inj) 4 mg Q6H PRN IV NAUSEA AND/OR VOMITING Last administered on 02/14/17 08:18; Admin Dose 4 MG; Start 02/12/17 at 09:30 AKSHAT MCGRATH M.D. February 16, 2017 11:51
[2017-02-16] MEDS ORDERED: FUROSEMIDE 20 MG INJ IV SCH (12:00)
--- NOTE | 2017-02-16 13:45 | CONS ---
Date/Time of Note Date/Time of Note DATE: 02/16/17 TIME: 13:43 Assessment/Plan Assessment/Plan Additional Assessment/Plan 1. Hyponatremia likely secondary to decompensated liver cirrhosis. 2. no heaptorenal syndrome 3. Acute kidney injury, likely secondary to prerenal azotemia in the setting of decompensated liver cirrhosis. 4. 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 5. History of recurrent ascites, status post last paracentesis done 3 weeks ago , 1.6 liters of fluid was removed. 6. Acute hyperkalemia, possibly secondary to Bactrim.- now resolved PLAN: US of abdomen did not show ascites, Gallstones within the distended gallbladder and mild gallbladder wall thickening.mild CBD dilatation- pt abdomen getting distended agani, need possibel US guided paracentesis - pt is not a candidate for Tolvaptan due to elevated LFTs, he has been on demeclocycline 300mg po BID for last 5 days but it is not working for him, will d/c it He needs paracentesis for Ascites and fluid overload which will help him to improve Na will start sodium chloride tablet 1 gram PO BID for hyponatremia\ , tertiary care center referral for liver transplant evaluation bicitra for metabolic acidosis will follow up Consultation Date/Type/Reason Admit Date/Time February 05, 2017 at 18:37 Initial Consult Date 02/06/17 Type of Consultation: NEPHROLOGY Referring Provider: CARL GRANT MD 24 HR Interval Summary Free Text/Dictation Na dropped to 123, Hb dropped to 7.7 Exam/Review of Systems Vital Signs Vitals Vital Signs Date Time Temp Pulse Resp B/P Pulse Ox O2 Delivery O2 Flow Rate FiO2 02/16/17 12:30 83 02/16/17 11:50 97.8 20 86/50 96 Intake and Output 02/15/17 02/15/17 02/16/17 15:00 23:00 07:00 Intake Total 700 ml 500 ml Output Total 1000 ml 600 ml Balance -300 ml -100 ml Exam Constitutional: alert, oriented, well developed, jaunduced Head: normocephalic Eyes: icteric ENMT: nl external ears & nose Neck: non-tender Respiratory: clear to auscultation Cardiovascular: nl pulses Gastrointestinal: distended, ascites Musculoskeletal: nl extremities to inspection Extremities: normal pulses, bruises Neurological: nl mental status, nl speech Results Result Diagram: 02/16/17 0951 02/16/17 0640 Results 24 hrs Laboratory Tests Test 02/16/17 06:40 02/16/17 08:48 02/16/17 09:51 White Blood Count 10.2 Red Blood Count 2.21 L Hemoglobin 7.4 L 7.7 L Hematocrit 20.9 L 21.2 L Mean Corpuscular Volume 94.6 Mean Corpuscular Hemoglobin 33.5 H Mean Corpuscular Hemoglobin Concent 35.4 Red Cell Distribution Width 16.4 H Platelet Count 50 L Mean Platelet Volume 11.8 H Neutrophils % 80.8 H Lymphocytes % 7.3 L Monocytes % 7.5 Eosinophils % 3.2 Basophils % 0.3 Nucleated Red Blood Cells % 0.0 Neutrophils # 8.3 H Lymphocytes # 0.7 L Monocytes # 0.8 Eosinophils # 0.3 Basophils # 0.0 Nucleated Red Blood Cells # 0.0 Differential Comment AUTO w/SCAN Platelet Estimate PLT APPEAR DECREASED Prothrombin Time 34.2 #H Prothrombin Time Ratio 2.7 INR International Normalized Ratio 3.32 Activated Partial Thromboplast Time 54.7 H Thrombin Time 21.8 H Sodium Level 123 L Potassium Level 3.5 Chloride Level 96 L Carbon Dioxide Level 20 L Anion Gap 11 Blood Urea Nitrogen 52 H Creatinine 1.56 H Glucose Level 126 Calcium Level 8.9 Lab Scanned Report REFERENCE LAB Medications Medications Current Medications Multivitamins Therapeutic (Theragran) 1 tab DAILY PO Last administered on 08:22; Admin Dose 1 TAB; Start 02/06/17 at 09:00 Thiamine HCl (Vitamin B1) 100 mg DAILY PO Last administered on 02/16/17 08:22 ; Admin Dose 100 MG; Start 02/06/17 at 09:00 Lactulose (Enulose) 20 gm Q4 PRN PO CONSTIPATION Last administered on 17:07; Admin Dose 20 GM; Start 02/06/17 at 00:00 Pantoprazole (Protonix Tab) 40 mg DAILY@06 PO Last administered on 02/16/17 06 :04; Admin Dose 40 MG; Start 02/06/17 at 06:00 Rifaximin (Xifaxan) 550 mg BID PO Last administered on 02/16/17 08:22; Admin Dose 550 MG; Start 02/06/17 at 09:00 Folic Acid (Folic Acid) 1 mg DAILY PO Last administered on 02/16/17 08:22; Admin Dose 1 MG; Start 02/06/17 at 09:00 Aripiprazole (Abilify) 1 mg HS PO Last administered on 02/15/17 20:17; Admin Dose 1 MG; Start 02/06/17 at 21:00 Morphine Sulfate (morphine) 2 mg Q3H PRN IV PAIN Last administered on 08:29; Admin Dose 2 MG; Start 02/06/17 at 01:00 Citric Acid/ Sodium Citrate (Bicitra) 30 ml TID PO Last administered on 12:51; Admin Dose 30 ML; Start 02/06/17 at 21:00 Demeclocycline HCl (Declomycin) 300 mg BID PO Last administered on 02/16/17 08 :22; Admin Dose 300 MG; Start 02/10/17 at 21:00 Propranolol HCl (Inderal) 10 mg BID PO ; Start 02/10/17 at 21:00; Status Future Hold Ondansetron HCl (Zofran Inj) 4 mg Q6H PRN IV NAUSEA AND/OR VOMITING Last administered on 02/14/17 08:18; Admin Dose 4 MG; Start 02/12/17 at 09:30 Furosemide (Lasix) 20 mg ONCE IV ; Start 02/16/17 at 12:00; Stop 02/17/17 at 11: 59 ELLIOT PARRA MD February 16, 2017 13:45
--- NOTE | 2017-02-16 13:49 | PN ---
Date/Time of Note Date/Time of Note DATE: 02/16/17 TIME: 13:45 Assessment/Plan VTE Prophylaxis VTE Prophylaxis Intervention: SCD's Lines/Catheters IV [facility]ter Type (from [facility]): [place] [facility] Urinary Cath still in place: No Assessment/Plan Chief Complaint/Hosp Course Patient is undergoing blood transfusion, denies any chest pain denies any shortness of breath, complains of abdominal distention. INR is 3.3 today ASSESSMENT AND PLAN: - Alcoholic liver cirrhosis. Dr. Zelaya is following in gastroenterology consultation. - Ascites secondary to liver cirrhosis. Pending paracentesis which is on hold today due to coagulopathy. - Hepatic encephalopathy, resolved. Continue lactulose and rifaximin. - Acute kidney injury, rule out hepatorenal syndrome. Dr. Robles is following in nephrology consultation. - Human immunodeficiency virus positive status. Dr. Ryan is following in infectious disease consultation. - Thrombocytopenia secondary to alcoholic liver cirrhosis. Dr. Cabral is following in hematology consultation. - Microcytic anemia. Status post transfusion, continue to monitor hemoglobin and hematocrit. - Coagulopathy, status post FFP and vitamin K. - Cholelithiasis. Status post MRCP. no evidence of obstruction of bile duct stone. - Hyponatremia secondary to liver cirrhosis. Further recommendations based on clinical course. Plan of care discussed with Dr. James. Problems: Exam/Review of Systems Vital Signs Vitals Vital Signs Date Time Temp Pulse Resp B/P Pulse Ox O2 Delivery O2 Flow Rate FiO2 02/16/17 12:30 83 02/16/17 11:50 97.8 20 86/50 96 Intake and Output 02/15/17 02/15/17 02/16/17 15:00 23:00 07:00 Intake Total 700 ml 500 ml Output Total 1000 ml 600 ml Balance -300 ml -100 ml Exam Constitutional: alert, oriented, other (Jaundiced) Psych: no complaints Eyes: icteric Neck: supple Respiratory: clear to auscultation Cardiovascular: nl pulses, regular rate and rhythm Gastrointestinal: distended, soft Musculoskeletal: nl extremities to inspection Extremities: normal pulses Results Result Diagram: 02/16/17 0951 02/16/17 0640 Results 24 hrs Laboratory Tests Test 02/16/17 06:40 02/16/17 08:48 02/16/17 09:51 White Blood Count 10.2 Red Blood Count 2.21 L Hemoglobin 7.4 L 7.7 L Hematocrit 20.9 L 21.2 L Mean Corpuscular Volume 94.6 Mean Corpuscular Hemoglobin 33.5 H Mean Corpuscular Hemoglobin Concent 35.4 Red Cell Distribution Width 16.4 H Platelet Count 50 L Mean Platelet Volume 11.8 H Neutrophils % 80.8 H Lymphocytes % 7.3 L Monocytes % 7.5 Eosinophils % 3.2 Basophils % 0.3 Nucleated Red Blood Cells % 0.0 Neutrophils # 8.3 H Lymphocytes # 0.7 L Monocytes # 0.8 Eosinophils # 0.3 Basophils # 0.0 Nucleated Red Blood Cells # 0.0 Differential Comment AUTO w/SCAN Platelet Estimate PLT APPEAR DECREASED Prothrombin Time 34.2 #H Prothrombin Time Ratio 2.7 INR International Normalized Ratio 3.32 Activated Partial Thromboplast Time 54.7 H Thrombin Time 21.8 H Sodium Level 123 L Potassium Level 3.5 Chloride Level 96 L Carbon Dioxide Level 20 L Anion Gap 11 Blood Urea Nitrogen 52 H Creatinine 1.56 H Glucose Level 126 Calcium Level 8.9 Lab Scanned Report REFERENCE LAB Medications Medications Current Medications Multivitamins Therapeutic (Theragran) 1 tab DAILY PO Last administered on 08:22; Admin Dose 1 TAB; Start 02/06/17 at 09:00 Thiamine HCl (Vitamin B1) 100 mg DAILY PO Last administered on 02/16/17 08:22 ; Admin Dose 100 MG; Start 02/06/17 at 09:00 Lactulose (Enulose) 20 gm Q4 PRN PO CONSTIPATION Last administered on 17:07; Admin Dose 20 GM; Start 02/06/17 at 00:00 Pantoprazole (Protonix Tab) 40 mg DAILY@06 PO Last administered on 02/16/17 06 :04; Admin Dose 40 MG; Start 02/06/17 at 06:00 Rifaximin (Xifaxan) 550 mg BID PO Last administered on 02/16/17 08:22; Admin Dose 550 MG; Start 02/06/17 at 09:00 Folic Acid (Folic Acid) 1 mg DAILY PO Last administered on 02/16/17 08:22; Admin Dose 1 MG; Start 02/06/17 at 09:00 Aripiprazole (Abilify) 1 mg HS PO Last administered on 5/30/17at 20:17; Admin Dose 1 MG; Start 02/06/17 at 21:00 Morphine Sulfate (morphine) 2 mg Q3H PRN IV PAIN Last administered on 08:29; Admin Dose 2 MG; Start 02/06/17 at 01:00 Citric Acid/ Sodium Citrate (Bicitra) 30 ml TID PO Last administered on 12:51; Admin Dose 30 ML; Start 02/06/17 at 21:00 Propranolol HCl (Inderal) 10 mg BID PO ; Start 02/10/17 at 21:00; Status Future Hold Ondansetron HCl (Zofran Inj) 4 mg Q6H PRN IV NAUSEA AND/OR VOMITING Last administered on 02/14/17 08:18; Admin Dose 4 MG; Start 02/12/17 at 09:30 Furosemide (Lasix) 20 mg ONCE IV ; Start 02/16/17 at 12:00; Stop 02/17/17 at 11: 59 ALIVIA ALVAREZ February 16, 2017 13:49
[2017-02-16] MEDS ORDERED: SODIUM CHLORIDE 1 GM TAB PO ONE (14:00)
--- NOTE | 2017-02-16 15:24 | CONS ---
Date/Time of Note Date/Time of Note DATE: 02/16/17 TIME: 15:16 Assessment/Plan Assessment/Plan Chief Complaint/Hosp Course The patient is a 56-year-old male patient with a history of alcoholic liver cirrhosis, hemophilia, admitted with hepatorenal syndrome-nephrology. No active bleeding. Hematology consulted due to history of hemophilia and thrombocytopenia. # Thrombocytopenia, likely related to alcoholic liver cirrhosis and splenomegaly - platelet count 79 at [facility], now stable at 50-60K. Continue to monitor, no evidence of bleeding - Transfuse < 10, < 50 if bleeding, otherwise monitor - HIV screen positive, however HIV Antibody 1/2 confirm negative, probably false positive per ID. Pending 4th generation HIV testing (ordered 02/12/17). Appreciate ID recs. - Hepatitis panel negative, unlikely DIC as prolongation of caogs and low fibrinogen likely related to liver disease. No need to give cryoprecipitate unless patient bleeding. - Abdominal US showed 1. Coarsened hepatic echotexture and suggested liver surface nodularity and mild common bile duct dilatation. - MRI Abdomen 02/08/17 showed 1. Cirrhosis without definite evidence of focal hepatic lesion. 2. Small ascites and splenomegaly. 3. Cholelithiasis with irregular gallbladder wall thickening may be related to chronic cholecystitis however cannot rule out underlying gallbladder mass lesion. 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 Kehinde Jimenez who informed me that he does not have a history of hemophilia but rather simply coagulopathy due to liver disease. However, the patient states that he was diagnosed in his 20s with hemophilia, prior to liver disease, diagnosed by Dr. Hu (now ) in [place]. 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 Factor IX low at 28%, difficult to determine whether related to liver disease, but even if patient does have mild hemophilia B it would be mild. Factor VIII level elevated 22. 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 Will give further FFP and Vitamin K, although likely due to deficiency of clotting factors in the setting of liver disease, recognizing the FFP may lead to further fluid overload. I have also requested pharmacy order Factor IX concentrate, given history of Hemophilia B, but is not currently available at [facility]. . # Macrocytic anemia, MCV 101.6, Hgb 8.5 at [facility] - Hgb 6.5 with MCV 99.0 on 02/07/17, s/p 2 units pRBCs now stable in 8-10 range. Transfuse < 8. Hgb today 9.0, confirmed with blood bank that he did not receive transfusion of pRBCs yesterday. - iron panel with Fe 109, TIBC low at 125, %87, ferritin 1250 consistent with anemia of chronic inflammation, B12/folate/TSH SNL, homocysteine elevated at 29.9; methylmalonic acid normal at 118. Therefore, patient may benefit from folate supplementation, as increased homocysteine is tied to increased cardiovascular risk and folate administration may lower homocysteine though unclear whether decreases cardiovascular risk. Patient noted to already be on folate. LDH elevated, retic count inappropriately low; haptoglobin < 15 (though likely low due to liver disease) Case management request for auth to be obtained for outpatient follow-up with me or Dr. Naya Dawson Problems: Consultation Date/Type/Reason Admit Date/Time February 05, 2017 at 18:37 Initial Consult Date 02/06/17 Type of Consultation: Hematology Referring Provider: CARL GRANT MD 24 HR Interval Summary Free Text/Dictation Patient has worsening ascites and lower extremity edema. Paracentesis is on hold due to coagulopathy. Exam/Review of Systems Vital Signs Vitals Vital Signs Date Time Temp Pulse Resp B/P Pulse Ox O2 Delivery O2 Flow Rate FiO2 02/16/17 12:30 83 02/16/17 11:50 97.8 20 86/50 96 Intake and Output 02/15/17 02/15/1702/16/17 15:00 23:00 07:00 Intake Total 700 ml 500 ml Output Total 1000 ml 600 ml Balance -300 ml -100 ml Exam Constitutional: alert, oriented, well developed, jaunduced Head: normocephalic Eyes: icteric ENMT: nl external ears & nose Neck: non-tender Respiratory: clear to auscultation Cardiovascular: nl pulses Gastrointestinal: distended, ascites Musculoskeletal: +edema bilaterally Extremities: normal pulses, bruises Neurological: nl mental status, nl speech Results Result Diagram: 02/16/17 0951 02/16/17 0640 Results 24 hrs Laboratory Tests Test 02/16/17 06:40 02/16/17 08:48 02/16/17 09:51 White Blood Count 10.2 Red Blood Count 2.21 L Hemoglobin 7.4 L 7.7 L Hematocrit 20.9 L 21.2 L Mean Corpuscular Volume 94.6 Mean Corpuscular Hemoglobin 33.5 H Mean Corpuscular Hemoglobin Concent 35.4 Red Cell Distribution Width 16.4 H Platelet Count 50 L Mean Platelet Volume 11.8 H Neutrophils % 80.8 H Lymphocytes % 7.3 L Monocytes % 7.5 Eosinophils % 3.2 Basophils % 0.3 Nucleated Red Blood Cells % 0.0 Neutrophils # 8.3 H Lymphocytes # 0.7 L Monocytes # 0.8 Eosinophils # 0.3 Basophils # 0.0 Nucleated Red Blood Cells # 0.0 Differential Comment AUTO w/SCAN Platelet Estimate PLT APPEAR DECREASED Prothrombin Time 34.2 #H Prothrombin Time Ratio 2.7 INR International Normalized Ratio 3.32 Activated Partial Thromboplast Time 54.7 H Thrombin Time 21.8 H Sodium Level 123 L Potassium Level 3.5 Chloride Level 96 L Carbon Dioxide Level 20 L Anion Gap 11 Blood Urea Nitrogen 52 H Creatinine 1.56 H Glucose Level 126 Calcium Level 8.9 Lab Scanned Report REFERENCE LAB Medications Medications Current Medications Multivitamins Therapeutic (Theragran) 1 tab DAILY PO Last administered on 08:22; Admin Dose 1 TAB; Start 02/06/17 at 09:00 Thiamine HCl (Vitamin B1) 100 mg DAILY PO Last administered on 02/16/17 08:22 ; Admin Dose 100 MG; Start 02/06/17 at 09:00 Lactulose (Enulose) 20 gm Q4 PRN PO CONSTIPATION Last administered on 17:07; Admin Dose 20 GM; Start 02/06/17 at 00:00 Pantoprazole (Protonix Tab) 40 mg DAILY@06 PO Last administered on 02/16/17 06 :04; Admin Dose 40 MG; Start 02/06/17 at 06:00 Rifaximin (Xifaxan) 550 mg BID PO Last administered on 02/16/17 08:22; Admin Dose 550 MG; Start 02/06/17 at 09:00 Folic Acid (Folic Acid) 1 mg DAILY PO Last administered on 02/16/17 08:22; Admin Dose 1 MG; Start 02/06/17 at 09:00 Aripiprazole (Abilify) 1 mg HS PO Last administered on 02/15/17 20:17; Admin Dose 1 MG; Start 02/06/17 at 21:00 Morphine Sulfate (morphine) 2 mg Q3H PRN IV PAIN Last administered on 15:11; Admin Dose 2 MG; Start 02/06/17 at 01:00 Citric Acid/ Sodium Citrate (Bicitra) 30 ml TID PO Last administered on 12:51; Admin Dose 30 ML; Start 02/06/17 at 21:00 Propranolol HCl (Inderal) 10 mg BID PO ; Start 02/10/17 at 21:00; Status Future Hold Ondansetron HCl (Zofran Inj) 4 mg Q6H PRN IV NAUSEA AND/OR VOMITING Last administered on 02/14/17 08:18; Admin Dose 4 MG; Start 02/12/17 at 09:30 Furosemide (Lasix) 20 mg ONCE IV Last administered on 02/16/17 15:11; Admin Dose 20 MG; Start 02/16/17 at 12:00; Stop 02/17/17 at 11:59 Sodium Chloride (Nacl) 1 gm BID PO ; Start 02/16/17 at 21:00 ABRAM HINDS MD February 16, 2017 15:24
--- NOTE | 2017-02-16 16:19 | CONS ---
Date/Time of Note Date/Time of Note DATE: 02/16/17 TIME: 16:17 Assessment/Plan Assessment/Plan Chief Complaint/Hosp Course IMPRESSION: 1. Exertional chest pain, assess for acute coronary syndrome.-negative troponin x 3. EF >65% by echo this admit 2. Dyspnea on exertion, assess for congestive heart failure.-increased BNP,. 3. Abnormal electrocardiogram, assess for acute coronary syndrome.-negative troponin x 3/NL EF by echo >65% this admit 4. Liver cirrhosis. 5. Nausea, vomiting. 6. ETOH abuse. 7. Polysubstance abuse. 8. Human immunodeficiency virus positivity. 9. Renal failure. 10. Hyponatremia. 11. Coagulopathy. 12. Anemia. 13. Thrombocytopenia. 14.Hypotension-intermittent/labile 15.Hyponatremia REcc: -Tele -Continue abx's and f/u cx data -ON IVF and would follow volume status closely -Continue salt tabs -Holding propranolol given hypotension -Continue PPI Problems: Consultation Date/Type/Reason Admit Date/Time February 05, 2017 at 18:37 Initial Consult Date 02/07/17 Type of Consultation: Cardiology Reason for Consultation Chest pain Referring Provider: CARL GRANT MD Exam/Review of Systems Vital Signs Vitals Vital Signs Date Time Temp Pulse Resp B/P Pulse Ox O2 Delivery O2 Flow Rate FiO2 02/16/17 15:56 97.8 78 20 92/50 100 Intake and Output 02/15/17 02/15/17 02/16/17 15:00 23:00 07:00 Intake Total 700 ml 500 ml Output Total 1000 ml 600 ml Balance -300 ml -100 ml Exam Review of Systems: CONSTITUTIONAL: No fevers, chills. PULMONARY: No sob CARDIOVASCULAR: No chest pain/palpitations GASTROINTESTINAL: No nausea/vomiting. GENITOURINARY: No hematuria/dysuria. MUSCULOSKELETAL: No myagias/arthalgias. PSYCHIATRIC: The patient denies depression. NEUROLOGIC: lethargic Constitutional: alert Psych: no complaints Head: normocephalic ENMT: mucosa pink and moist Neck: jvd (8 cm water), supple Respiratory: clear to auscultation Cardiovascular: regular rate and rhythm Gastrointestinal: non-tender, soft Musculoskeletal: muscle tone (normal) Extremities: edema (none) Neurological: lethargic Results Result Diagram: 02/16/17 0951 02/16/17 0640 Results 24 hrs Laboratory Tests Test 02/16/17 06:40 02/16/17 08:48 02/16/17 09:51 White Blood Count 10.2 Red Blood Count 2.21 L Hemoglobin 7.4 L 7.7 L Hematocrit 20.9 L 21.2 L Mean Corpuscular Volume 94.6 Mean Corpuscular Hemoglobin 33.5 H Mean Corpuscular Hemoglobin Concent 35.4 Red Cell Distribution Width 16.4 H Platelet Count 50 L Mean Platelet Volume 11.8 H Neutrophils % 80.8 H Lymphocytes % 7.3 L Monocytes % 7.5 Eosinophils % 3.2 Basophils % 0.3 Nucleated Red Blood Cells % 0.0 Neutrophils # 8.3 H Lymphocytes # 0.7 L Monocytes # 0.8 Eosinophils # 0.3 Basophils # 0.0 Nucleated Red Blood Cells # 0.0 Differential Comment AUTO w/SCAN Platelet Estimate PLT APPEAR DECREASED Prothrombin Time 34.2 #H Prothrombin Time Ratio 2.7 INR International Normalized Ratio 3.32 Activated Partial Thromboplast Time 54.7 H Thrombin Time 21.8 H Sodium Level 123 L Potassium Level 3.5 Chloride Level 96 L Carbon Dioxide Level 20 L Anion Gap 11 Blood Urea Nitrogen 52 H Creatinine 1.56 H Glucose Level 126 Calcium Level 8.9 Lab Scanned Report REFERENCE LAB Medications Medications Current Medications Multivitamins Therapeutic (Theragran) 1 tab DAILY PO Last administered on 08:22; Admin Dose 1 TAB; Start 02/06/17 at 09:00 Thiamine HCl (Vitamin B1) 100 mg DAILY PO Last administered on 02/16/17 08:22 ; Admin Dose 100 MG; Start 02/06/17 at 09:00 Lactulose (Enulose) 20 gm Q4 PRN PO CONSTIPATION Last administered on 17:07; Admin Dose 20 GM; Start 02/06/17 at 00:00 Pantoprazole (Protonix Tab) 40 mg DAILY@06 PO Last administered on 02/16/17 06 :04; Admin Dose 40 MG; Start 02/06/17 at 06:00 Rifaximin (Xifaxan) 550 mg BID PO Last administered on 02/16/17 08:22; Admin Dose 550 MG; Start 02/06/17 at 09:00 Folic Acid (Folic Acid) 1 mg DAILY PO Last administered on 02/16/17 08:22; Admin Dose 1 MG; Start 02/06/17 at 09:00 Aripiprazole (Abilify) 1 mg HS PO Last administered on 02/15/17 20:17; Admin Dose 1 MG; Start 02/06/17 at 21:00 Morphine Sulfate (morphine) 2 mg Q3H PRN IV PAIN Last administered on 15:11; Admin Dose 2 MG; Start 02/06/17 at 01:00 Citric Acid/ Sodium Citrate (Bicitra) 30 ml TID PO Last administered on 12:51; Admin Dose 30 ML; Start 02/06/17 at 21:00 Propranolol HCl (Inderal) 10 mg BID PO ; Start 02/10/17 at 21:00; Status Future Hold Ondansetron HCl (Zofran Inj) 4 mg Q6H PRN IV NAUSEA AND/OR VOMITING Last administered on 02/14/17 08:18; Admin Dose 4 MG; Start 02/12/17 at 09:30 Furosemide (Lasix) 20 mg ONCE IV Last administered on 02/16/17 15:11; Admin Dose 20 MG; Start 02/16/17 at 12:00; Stop 02/17/17 at 11:59 Sodium Chloride 1 gm 1 gm BID PO ; Start 02/16/17 at 21:00 Phytonadione/ Dextrose (Vitamin K/D5W) 50.5 ml @ 101 mls/hr DAILY IVPB ; Start 02/16/17 at 17:00; Stop 02/18/17 at 09:29 SHAY COTTRELL February 16, 2017 16:19
[2017-02-16] MEDS: PHYTONADIONE 5 MG in DEXTROSE 5% 50 ML IVPB SCH (16:50)
[2017-02-16] MEDS: ONDANSETRON 4 MG INJ IV PRN (18:01)
--- NOTE | 2017-02-16 20:28 | CONS ---
Date/Time of Note Date/Time of Note DATE: 02/16/17 TIME: 20:26 Assessment/Plan Assessment/Plan Additional Assessment/Plan IMPRESSION: 1. Hyponatremia secondary to liver cirrhosis. 2. Acute kidney injury without heptorenal syndrome, likely secondary to prerenal azotemia in the setting of decompensated liver cirrhosis. 3. 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 History of recurrent ascites, status post last paracentesis done 3 weeks ago , 1.6 liters of fluid was removed. 5. Acute hyperkalemia, possibly secondary to Bactrim. 6. H/o ascites, but U/S from yesterday only showed small amt of ascites 7. Pedal edema 4+ 8. False-positive HIV PLAN: - EtOH cessation counseled - [facility] referral for liver transplant evaluation if patient is not an active drinker - continue lactulose and rifaximen for hepatic encephalopathy - continue low dose lasix, titrate as tolerated by kidney function P.o. fluid restriction Sodium restriction - add spironolactone if potassium normalizes. Consultation Date/Type/Reason Admit Date/Time February 05, 2017 at 18:37 Initial Consult Date 02/06/17 Type of Consultation: Cardiology Referring Provider: CARL GRANT MD 24 HR Interval Summary Free Text/Dictation Patient complains of pedal edema Exam/Review of Systems Vital Signs Vitals Vital Signs Date Time Temp Pulse Resp B/P Pulse Ox O2 Delivery O2 Flow Rate FiO2 02/16/17 20:13 79 02/16/17 19:50 98.6 16 100/49 99 Intake and Output 02/15/17 02/15/17 02/16/17 15:00 23:00 07:00 Intake Total 700 ml 500 ml Output Total 1000 ml 600 ml Balance -300 ml -100 ml Exam Constitutional: alert, oriented, well developed Psych: nl mood/affect, no complaints Head: atraumatic, normocephalic Eyes: EOMI, PERRL, nl conjunctiva, nl lids, nl sclera ENMT: nl external ears & nose, nl lips & teeth, nl nasal mucosa & septum Neck: non-tender, supple Respiratory: clear to auscultation, normal air movement Cardiovascular: nl pulses, regular rate and rhythm Gastrointestinal: nl liver, spleen, non-tender, soft Musculoskeletal: nl extremities to inspection, nl gait and stance Extremities: normal pulses, pitting pedal edema (4+ pedal edema) Neurological: SPEECH THERAPIST II-XII intact, nl mental status, nl speech, nl strength Skin: nl turgor, No rash or lesions Lymph: nl lymph nodes Results Result Diagram: 02/16/17 0951 02/16/17 0640 Results 24 hrs Laboratory Tests Test 02/16/17 06:40 02/16/17 08:48 02/16/17 09:51 White Blood Count 10.2 Red Blood Count 2.21 L Hemoglobin 7.4 L 7.7 L Hematocrit 20.9 L 21.2 L Mean Corpuscular Volume 94.6 Mean Corpuscular Hemoglobin 33.5 H Mean Corpuscular Hemoglobin Concent 35.4 Red Cell Distribution Width 16.4 H Platelet Count 50 L Mean Platelet Volume 11.8 H Neutrophils % 80.8 H Lymphocytes % 7.3 L Monocytes % 7.5 Eosinophils % 3.2 Basophils % 0.3 Nucleated Red Blood Cells % 0.0 Neutrophils # 8.3 H Lymphocytes # 0.7 L Monocytes # 0.8 Eosinophils # 0.3 Basophils # 0.0 Nucleated Red Blood Cells # 0.0 Differential Comment AUTO w/SCAN Platelet Estimate PLT APPEAR DECREASED Prothrombin Time 34.2 #H Prothrombin Time Ratio 2.7 INR International Normalized Ratio 3.32 Activated Partial Thromboplast Time 54.7 H Thrombin Time 21.8 H Sodium Level 123 L Potassium Level 3.5 Chloride Level 96 L Carbon Dioxide Level 20 L Anion Gap 11 Blood Urea Nitrogen 52 H Creatinine 1.56 H Glucose Level 126 Calcium Level 8.9 Lab Scanned Report REFERENCE LAB Medications Medications Current Medications Multivitamins Therapeutic (Theragran) 1 tab DAILY PO Last administered on 08:22; Admin Dose 1 TAB; Start 02/06/17 at 09:00 Thiamine HCl (Vitamin B1) 100 mg DAILY PO Last administered on 02/16/17 08:22 ; Admin Dose 100 MG; Start 02/06/17 at 09:00 Lactulose (Enulose) 20 gm Q4 PRN PO CONSTIPATION Last administered on 17:07; Admin Dose 20 GM; Start 02/06/17 at 00:00 Pantoprazole (Protonix Tab) 40 mg DAILY@06 PO Last administered on 02/16/17 06 :04; Admin Dose 40 MG; Start 02/06/17 at 06:00 Rifaximin (Xifaxan) 550 mg BID PO Last administered on 02/16/17 08:22; Admin Dose 550 MG; Start 02/06/17 at 09:00 Folic Acid (Folic Acid) 1 mg DAILY PO Last administered on 02/16/17 08:22; Admin Dose 1 MG; Start 02/06/17 at 09:00 Aripiprazole (Abilify) 1 mg HS PO Last administered on 02/15/17 20:17; Admin Dose 1 MG; Start 02/06/17 at 21:00 Morphine Sulfate (morphine) 2 mg Q3H PRN IV PAIN Last administered on 18:57; Admin Dose 2 MG; Start 02/06/17 at 01:00 Citric Acid/ Sodium Citrate (Bicitra) 30 ml TID PO Last administered on 12:51; Admin Dose 30 ML; Start 02/06/17 at 21:00 Propranolol HCl (Inderal) 10 mg BID PO ; Start 02/10/17 at 21:00; Status Future Hold Ondansetron HCl (Zofran Inj) 4 mg Q6H PRN IV NAUSEA AND/OR VOMITING Last administered on 02/16/17 18:01; Admin Dose 4 MG; Start 02/12/17 at 09:30 Furosemide (Lasix) 20 mg ONCE IV Last administered on 02/16/17 15:11; Admin Dose 20 MG; Start 02/16/17 at 12:00; Stop 02/17/17 at 11:59 Sodium Chloride 1 gm 1 gm BID PO ; Start 02/16/17 at 21:00 Phytonadione/ Dextrose (Vitamin K/D5W) 50.5 ml @ 101 mls/hr DAILY IVPB Last administered on 02/16/17 16:50; Admin Dose 101 MLS/HR; Start 02/16/17 at 17:00 ; Stop 02/18/17 at 09:29 IGNACIA HERR MD February 16, 2017 20:28
[2017-02-16] MEDS: ARIPIPRAZOLE 2 MG TAB PO SCH ×2 (22:06→22:10)
[2017-02-16] MEDS: SODIUM CHLORIDE 1 GM TAB PO SCH (22:06)
[2017-02-17] VITALS (11 sets, daily range): BP systolic 99–125; BP diastolic 49–85; PULSE 69–96; RESP 16–18
[2017-02-17] MEDS: PANTOPRAZOLE (EC) 40 MG TAB PO SCH (06:32)
[2017-02-17 07:46] LABS: ADD SCAN DIFF NO
[2017-02-17 07:48] LABS: ABNORMAL IP MESSAGE 1; BASOPHILS % 0.5 % (0.0-2.0); EOSINOPHILS # 0.3 10^3/ul (0.0-0.5); EOSINOPHILS % 3.1 % (0.0-7.0); HEMATOCRIT 22.9 % (42.0-52.0); LYMPHOCYTES # 0.8 10^3/ul (0.8-2.9); LYMPHOCYTES % 8.8 % (15.0-51.0); MEAN CORPUSCULAR HEMOGLOBIN 32.7 pg (29.0-33.0); MEAN CORPUSCULAR HGB CONC 34.9 g/dl (32.0-37.0); MEAN CORPUSCULAR VOLUME 93.5 fl (82.0-101.0); MEAN PLATELET VOLUME 11.7 fl (7.4-10.4); MONOCYTE # 0.8 10^3/ul (0.3-0.9); MONOCYTES % 9.6 % (0.0-11.0); NEUTROPHIL # 6.8 10^3/ul (1.6-7.5); NEUTROPHILS % 77.4 % (39.0-77.0); RED BLOOD COUNT 2.45 10^6/ul (4.70-6.10); RED CELL DISTRIBUTION WIDTH 16.6 % (11.5-14.5); WHITE BLOOD COUNT 8.8 10^3/ul (4.8-10.8)
[2017-02-17 07:53] LABS: PLATELET COUNT 43 10^3/UL (140-415)
[2017-02-17 08:08] LABS: INR 2.24
[2017-02-17 08:09] LABS: PARTIAL THROMBOPLASTIN TIME 47.7 Sec (25.0-35.0); THROMBIN TIME 20.9 SEC (13.8-19.1)
[2017-02-17 08:15] LABS: CALCIUM 9.1 mg/dl (8.4-10.2); CREATININE 1.46 mg/dl (0.61-1.24); POTASSIUM 3.4 mmol/L (3.5-5.1)
[2017-02-17] MEDS: MULTIVITAMINS THERAPEUTIC TAB PO SCH (08:27)
[2017-02-17] MEDS: FOLIC ACID 1 MG TAB PO SCH (08:28)
[2017-02-17] MEDS: THIAMINE 100 MG TAB PO SCH (08:28)
[2017-02-17] MEDS: RIFAXIMIN 550 MG TAB PO SCH ×2 (08:28→21:14)
[2017-02-17] MEDS: SODIUM CHLORIDE 1 GM TAB PO SCH ×2 (08:28→21:14)
[2017-02-17] MEDS: CITRIC ACID/SODIUM CITRATE 15 ML CUP PO SCH ×3 (08:29→21:14)
[2017-02-17] MEDS: morphine 2 MG INJ IV PRN ×4 (09:28→22:33)
[2017-02-17] MEDS: PHYTONADIONE 5 MG in DEXTROSE 5% 50 ML IVPB SCH (10:13)
--- NOTE | 2017-02-17 13:03 | CONS ---
Date/Time of Note Date/Time of Note DATE: 02/17/17 TIME: 13:00 Assessment/Plan Assessment/Plan Chief Complaint/Hosp Course The patient is a 56-year-old male patient with a history of alcoholic liver cirrhosis, hemophilia, admitted with hepatorenal syndrome-nephrology. No active bleeding. Hematology consulted due to history of hemophilia and thrombocytopenia. # Thrombocytopenia, likely related to alcoholic liver cirrhosis and splenomegaly - platelet count 79 at [facility], now stable at 40-60K. Continue to monitor, no evidence of bleeding - Transfuse < 10, < 50 if bleeding, otherwise monitor - HIV screen positive, however HIV Antibody 1/2 confirm negative, probably false positive per ID. 4th generation HIV testing returned as non-reactive. Appreciate ID recs. - Hepatitis panel negative, unlikely DIC as prolongation of caogs and low fibrinogen likely related to liver disease. No need to give cryoprecipitate unless patient bleeding. - Abdominal US showed 1. Coarsened hepatic echotexture and suggested liver surface nodularity and mild common bile duct dilatation. - MRI Abdomen 02/08/17 showed 1. Cirrhosis without definite evidence of focal hepatic lesion. 2. Small ascites and splenomegaly. 3. Cholelithiasis with irregular gallbladder wall thickening may be related to chronic cholecystitis however cannot rule out underlying gallbladder mass lesion. 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 Kehinde Jimenez who informed me that he does not have a history of hemophilia but rather simply coagulopathy due to liver disease. However, the patient states that he was diagnosed in his 20s with hemophilia, prior to liver disease, diagnosed by Dr. Hu (now ) in [place]. 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 Factor IX low at 28%, difficult to determine whether related to liver disease, but even if patient does have mild hemophilia B it would be mild. Factor VIII level elevated 22. 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 s/p FFP 02/16/17 and Vitamin K starting 02/16/17 for 3 days, although likely due to deficiency of clotting factors in the setting of liver disease, recognizing the FFP may lead to further fluid overload. I have also requested pharmacy order Factor IX concentrate, given history of Hemophilia B, may be arriving today. . # Macrocytic anemia, MCV 101.6, Hgb 8.5 at [facility] - Hgb 6.5 with MCV 99.0 on 02/07/17, s/p 2 units pRBCs now stable in 8-10 range. Transfuse < 8. s/p 1 unit pRBCs 02/16/17 for Hgb 7.7, now Hgb 8.0. Continue to monitor. - iron panel with Fe 109, TIBC low at 125, %87, ferritin 1250 consistent with anemia of chronic inflammation, B12/folate/TSH SNL, homocysteine elevated at 29.9; methylmalonic acid normal at 118. Therefore, patient may benefit from folate supplementation, as increased homocysteine is tied to increased cardiovascular risk and folate administration may lower homocysteine though unclear whether decreases cardiovascular risk. Patient noted to already be on folate. LDH elevated, retic count inappropriately low; haptoglobin < 15 (though likely low due to liver disease) Case management request for auth to be obtained for outpatient follow-up with me or Dr. Naya Dawson Problems: Consultation Date/Type/Reason Admit Date/Time February 05, 2017 at 18:37 Initial Consult Date 02/06/17 Type of Consultation: Hematology Referring Provider: CARL GRANT MD 24 HR Interval Summary Free Text/Dictation Patient is complaining of increased swelling and ascites. Exam/Review of Systems Vital Signs Vitals Vital Signs Date Time Temp Pulse Resp B/P Pulse Ox O2 Delivery O2 Flow Rate FiO2 02/17/17 12:58 83 02/17/17 11:34 98.0 18 112/67 99 Intake and Output 02/16/17 02/16/17 02/17/17 15:00 23:00 07:00 Intake Total 1520 ml 455 ml Output Total 1200 ml 550 ml Balance 320 ml -95 ml Exam Constitutional: alert, oriented, well developed, jaunduced Head: normocephalic Eyes: icteric ENMT: nl external ears & nose Neck: non-tender Respiratory: clear to auscultation Cardiovascular: nl pulses Gastrointestinal: distended, ascites Musculoskeletal: +edema bilaterally Extremities: normal pulses, bruises Neurological: nl mental status, nl speech Results Result Diagram: 02/17/17 0658 02/17/17 0658 Results 24 hrs Laboratory Tests Test 02/17/17 05:16 02/17/17 06:58 02/17/17 11:51 Lab Scanned Report BLOOD TRANSFUSION REFERENCE LAB White Blood Count 8.8 Red Blood Count 2.45 L Hemoglobin 8.0 L Hematocrit 22.9 L Mean Corpuscular Volume 93.5 Mean Corpuscular Hemoglobin 32.7 Mean Corpuscular Hemoglobin Concent 34.9 Red Cell Distribution Width 16.6 H Platelet Count 41 L Mean Platelet Volume 11.7 H Neutrophils % 77.4 H Lymphocytes % 8.8 L Monocytes % 9.6 Eosinophils % 3.1 Basophils % 0.5 Nucleated Red Blood Cells % 0.0 Neutrophils # 6.8 Lymphocytes # 0.8 Monocytes # 0.8 Eosinophils # 0.3 Basophils # 0.0 Nucleated Red Blood Cells # 0.0 Prothrombin Time 25.0 #H Prothrombin Time Ratio 2.0 INR International Normalized Ratio 2.24 Activated Partial Thromboplast Time 47.7 H Thrombin Time 20.9 H Sodium Level 126 L Potassium Level 3.4 L Chloride Level 96 L Carbon Dioxide Level 23 Anion Gap 10 Blood Urea Nitrogen 51 H Creatinine 1.46 H Glucose Level 114 Calcium Level 9.1 Medications Medications Current Medications Multivitamins Therapeutic (Theragran) 1 tab DAILY PO Last administered on 08:27; Admin Dose 1 TAB; Start 02/06/17 at 09:00 Thiamine HCl (Vitamin B1) 100 mg DAILY PO Last administered on 02/17/17 08:28; Admin Dose 100 MG; Start 02/06/17 at 09:00 Lactulose (Enulose) 20 gm Q4 PRN PO CONSTIPATION Last administered on 17:07; Admin Dose 20 GM; Start 02/06/17 at 00:00 Pantoprazole (Protonix Tab) 40 mg DAILY@06 PO Last administered on 02/17/17 06: 32; Admin Dose 40 MG; Start 02/06/17 at 06:00 Rifaximin (Xifaxan) 550 mg BID PO Last administered on 02/17/17 08:28; Admin Dose 550 MG; Start 02/06/17 at 09:00 Folic Acid (Folic Acid) 1 mg DAILY PO Last administered on 02/17/17 08:28; Admin Dose 1 MG; Start 02/06/17 at 09:00 Aripiprazole (Abilify) 1 mg HS PO Last administered on 02/15/17 20:17; Admin Dose 1 MG; Start 02/06/17 at 21:00 Morphine Sulfate (morphine) 2 mg Q3H PRN IV PAIN Last administered on 02/17/17 09:28; Admin Dose 2 MG; Start 02/06/17 at 01:00 Citric Acid/ Sodium Citrate (Bicitra) 30 ml TID PO Last administered on 08:29; Admin Dose 30 ML; Start 02/06/17 at 21:00 Propranolol HCl (Inderal) 10 mg BID PO ; Start 02/10/17 at 21:00; Status Future Hold Ondansetron HCl (Zofran Inj) 4 mg Q6H PRN IV NAUSEA AND/OR VOMITING Last administered on 02/16/17 18:01; Admin Dose 4 MG; Start 02/12/17 at 09:30 Sodium Chloride 1 gm 1 gm BID PO Last administered on 02/17/17 08:28; Admin Dose 1 GM; Start 02/16/17 at 21:00 Phytonadione/ Dextrose (Vitamin K/D5W) 50.5 ml @ 101 mls/hr DAILY IVPB Last administered on 02/17/17 10:13; Admin Dose 101 MLS/HR; Start 02/16/17 at 17:00; Stop 02/18/17 at 09:29 TOABRAM MD Feb 17, 2017 13:03
--- NOTE | 2017-02-17 16:52 | CONS ---
Date/Time of Note Date/Time of Note DATE: 02/17/17 TIME: 16:50 Assessment/Plan Assessment/Plan Additional Assessment/Plan 1. Hyponatremia likely secondary to decompensated liver cirrhosis. 2. no heaptorenal syndrome 3. Acute kidney injury, likely secondary to prerenal azotemia in the setting of decompensated liver cirrhosis. 4. 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 5. History of recurrent ascites, status post last paracentesis done 3 weeks ago , 1.6 liters of fluid was removed. 6. Acute hyperkalemia, possibly secondary to Bactrim.- now resolved PLAN: US of abdomen did not show ascites, Gallstones within the distended gallbladder and mild gallbladder wall thickening.mild CBD dilatation- pt abdomen getting distended agani, need possibel US guided paracentesis - pt is not a candidate for Tolvaptan due to elevated LFTs, he has been on demeclocycline 300mg po BID for last 5 days but it is not working for him, so I discontinued, it, today Na 126 on sodium chloride tablet 1 gram PO BID for hyponatremia- Na 126 , tertiary care center referral for liver transplant evaluation bicitra for metabolic acidosis KCL 10mEQ IV x 1 dose now will follow up Consultation Date/Type/Reason Admit Date/Time February 05, 2017 at 18:37 Initial Consult Date 02/06/17 Type of Consultation: NEPHROLOGY Referring Provider: CARL GRANT MD 24 HR Interval Summary Free Text/Dictation Na Improved to 126, Bp stable, less abd distension, K low Exam/Review of Systems Vital Signs Vitals Vital Signs Date Time Temp Pulse Resp B/P Pulse Ox O2 Delivery O2 Flow Rate FiO2 02/17/17 16:27 69 02/17/17 15:24 98.1 18 99/51 100 Intake and Output 02/16/17 02/16/17 02/17/17 15:00 23:00 07:00 Intake Total 1520 ml 455 ml Output Total 1200 ml 550 ml Balance 320 ml -95 ml Exam Constitutional: alert, oriented, well developed, jaunduced Head: normocephalic Eyes: icteric ENMT: nl external ears & nose Neck: non-tender Respiratory: clear to auscultation Cardiovascular: nl pulses Gastrointestinal: distended, ascites Musculoskeletal: nl extremities to inspection Extremities: normal pulses, bruises Neurological: nl mental status, nl speech Results Result Diagram: 02/17/17 0658 02/17/17 0658 Results 24 hrs Laboratory Tests Test 02/17/17 05:16 02/17/17 06:58 02/17/17 11:51 Lab Scanned Report BLOOD TRANSFUSION REFERENCE LAB White Blood Count 8.8 Red Blood Count 2.45 L Hemoglobin 8.0 L Hematocrit 22.9 L Mean Corpuscular Volume 93.5 Mean Corpuscular Hemoglobin 32.7 Mean Corpuscular Hemoglobin Concent 34.9 Red Cell Distribution Width 16.6 H Platelet Count 41 L Mean Platelet Volume 11.7 H Neutrophils % 77.4 H Lymphocytes % 8.8 L Monocytes % 9.6 Eosinophils % 3.1 Basophils % 0.5 Nucleated Red Blood Cells % 0.0 Neutrophils # 6.8 Lymphocytes # 0.8 Monocytes # 0.8 Eosinophils # 0.3 Basophils # 0.0 Nucleated Red Blood Cells # 0.0 Prothrombin Time 25.0 #H Prothrombin Time Ratio 2.0 INR International Normalized Ratio 2.24 Activated Partial Thromboplast Time 47.7 H Thrombin Time 20.9 H Sodium Level 126 L Potassium Level 3.4 L Chloride Level 96 L Carbon Dioxide Level 23 Anion Gap 10 Blood Urea Nitrogen 51 H Creatinine 1.46 H Glucose Level 114 Calcium Level 9.1 Medications Medications Current Medications Multivitamins Therapeutic (Theragran) 1 tab DAILY PO Last administered on 08:27; Admin Dose 1 TAB; Start 02/06/17 at 09:00 Thiamine HCl (Vitamin B1) 100 mg DAILY PO Last administered on 02/17/17 08:28; Admin Dose 100 MG; Start 02/06/17 at 09:00 Lactulose (Enulose) 20 gm Q4 PRN PO CONSTIPATION Last administered on 17:07; Admin Dose 20 GM; Start 02/06/17 at 00:00 Pantoprazole (Protonix Tab) 40 mg DAILY@06 PO Last administered on 02/17/17 06: 32; Admin Dose 40 MG; Start 02/06/17 at 06:00 Rifaximin (Xifaxan) 550 mg BID PO Last administered on 02/17/17 08:28; Admin Dose 550 MG; Start 02/06/17 at 09:00 Folic Acid (Folic Acid) 1 mg DAILY PO Last administered on 02/17/17 08:28; Admin Dose 1 MG; Start 02/06/17 at 09:00 Aripiprazole (Abilify) 1 mg HS PO Last administered on 02/15/17 20:17; Admin Dose 1 MG; Start 02/06/17 at 21:00 Morphine Sulfate (morphine) 2 mg Q3H PRN IV PAIN Last administered on 02/17/17 13:47; Admin Dose 2 MG; Start 02/06/17 at 01:00 Citric Acid/ Sodium Citrate (Bicitra) 30 ml TID PO Last administered on 14:01; Admin Dose 30 ML; Start 02/06/17 at 21:00 Propranolol HCl (Inderal) 10 mg BID PO ; Start 02/10/17 at 21:00; Status Future Hold Ondansetron HCl (Zofran Inj) 4 mg Q6H PRN IV NAUSEA AND/OR VOMITING Last administered on 02/16/17 18:01; Admin Dose 4 MG; Start 02/12/17 at 09:30 Sodium Chloride 1 gm 1 gm BID PO Last administered on 02/17/17 08:28; Admin Dose 1 GM; Start 02/16/17 at 21:00 Phytonadione/ Dextrose (Vitamin K/D5W) 50.5 ml @ 101 mls/hr DAILY IVPB Last administered on 02/17/17 10:13; Admin Dose 101 MLS/HR; Start 02/16/17 at 17:00; Stop 02/18/17 at 09:29 ELLIOT PARRA MD Feb 17, 2017 16:52
[2017-02-17] MEDS ORDERED: LIDOCAINE 1% (MPF) 5 ML VIAL ONE ×2 (16:58→17:12)
--- NOTE | 2017-02-17 17:57 | RADRPT ---
PROCEDURE: US guided paracentesis CLINICAL INDICATION: Ascites TECHNIQUE: Multiple sonographic images were obtained through the patient's abdomen. A site in the patient's RIGHT lower abdomen was selected and marked. The area was prepped and draped in the usual sterile fashion. 1% lidocaine was utilized. A 19-gauge Yueh needle was advanced into the peritonea l space and the introducer was connected to a vacuum drainage bottle. A total of 3000 cc of clear y ellow fluid were drained at the end of the procedure. The patient tolerated the procedure well. COMPARISON: None FINDINGS: Ascites. RPTAT: AA IMPRESSION: Successful ultrasound-guided paracentesis. Physician Yifan Date Time Electronically viewed and signed by Physician Yifan on 02/17/2017 17:57 /
[2017-02-17] MEDS ORDERED: POTASSIUM CHLORIDE 50 ML IVPB ONE (18:00)
--- NOTE | 2017-02-17 19:06 | PN ---
Date/Time of Note Date/Time of Note DATE: 02/17/17 TIME: 19:05 Assessment/Plan VTE Prophylaxis VTE Prophylaxis Intervention: other Lines/Catheters [facility]ine [facility] Urinary Cath still in place: No Assessment/Plan Assessment/Plan - Ascites secondary to liver cirrhosis. - SP paracentesis- 3L removed - Hypokalemia- replet K, am BMP - Alcoholic liver cirrhosis. Dr. Zelaya is following in gastroenterology consultation. - Hepatic encephalopathy, resolved. Continue lactulose and rifaximin. - Acute kidney injury, rule out hepatorenal syndrome. Dr. Robles is following in nephrology consultation. - Human immunodeficiency virus positive status. Dr. Ryan is following in infectious disease consultation. - Thrombocytopenia secondary to alcoholic liver cirrhosis. Dr. Cabral is following in hematology consultation. - Microcytic anemia. Status post transfusion, continue to monitor hemoglobin and hematocrit. - Coagulopathy, status post FFP and vitamin K. - Cholelithiasis. Status post MRCP. no evidence of obstruction of bile duct stone. Further recommendations based on clinical course. Plan of care discussed with Dr. James. Subjective 24 Hr Interval Summary Free Text/Dictation resting in bed, c/o abdominal pain, sp ascites- 3 liters removed BLE swollen dw staff Respiratory: no complaints Cardiovascular: no complaints Gastrointestinal: no complaints Exam/Review of Systems Vital Signs Vitals Vital Signs Date Time Temp Pulse Resp B/P Pulse Ox O2 Delivery O2 Flow Rate FiO2 02/17/17 16:27 69 02/17/17 15:24 98.1 18 99/51 100 Intake and Output 02/16/17 02/16/17 02/17/17 15:00 23:00 07:00 Intake Total 1520 ml 455 ml Output Total 1200 ml 550 ml Balance 320 ml -95 ml Exam Constitutional: alert, oriented, well developed Psych: nl mood/affect Eyes: EOMI, icteric, nl sclera Neck: non-tender, supple Respiratory: clear to auscultation, normal air movement Cardiovascular: nl pulses, regular rate and rhythm Gastrointestinal: ascites, non-tender, soft, tender Musculoskeletal: nl extremities to inspection Extremities: edema Neurological: nl mental status, nl speech Skin: other Lymph: nontender Results Result Diagram: 02/17/17 0658 02/17/17 0658 Results 24 hrs Laboratory Tests Test 02/17/17 05:16 02/17/17 06:58 02/17/17 11:51 Lab Scanned Report BLOOD TRANSFUSION REFERENCE LAB White Blood Count 8.8 Red Blood Count 2.45 L Hemoglobin 8.0 L Hematocrit 22.9 L Mean Corpuscular Volume 93.5 Mean Corpuscular Hemoglobin 32.7 Mean Corpuscular Hemoglobin Concent 34.9 Red Cell Distribution Width 16.6 H Platelet Count 41 L Mean Platelet Volume 11.7 H Neutrophils % 77.4 H Lymphocytes % 8.8 L Monocytes % 9.6 Eosinophils % 3.1 Basophils % 0.5 Nucleated Red Blood Cells % 0.0 Neutrophils # 6.8 Lymphocytes # 0.8 Monocytes # 0.8 Eosinophils # 0.3 Basophils # 0.0 Nucleated Red Blood Cells # 0.0 Prothrombin Time 25.0 #H Prothrombin Time Ratio 2.0 INR International Normalized Ratio 2.24 Activated Partial Thromboplast Time 47.7 H Thrombin Time 20.9 H Sodium Level 126 L Potassium Level 3.4 L Chloride Level 96 L Carbon Dioxide Level 23 Anion Gap 10 Blood Urea Nitrogen 51 H Creatinine 1.46 H Glucose Level 114 Calcium Level 9.1 Medications Medications Current Medications Multivitamins Therapeutic (Theragran) 1 tab DAILY PO Last administered on 08:27; Admin Dose 1 TAB; Start 02/06/17 at 09:00 Thiamine HCl (Vitamin B1) 100 mg DAILY PO Last administered on 02/17/17 08:28; Admin Dose 100 MG; Start 02/06/17 at 09:00 Lactulose (Enulose) 20 gm Q4 PRN PO CONSTIPATION Last administered on 17:07; Admin Dose 20 GM; Start 02/06/17 at 00:00 Pantoprazole (Protonix Tab) 40 mg DAILY@06 PO Last administered on 02/17/17 06: 32; Admin Dose 40 MG; Start 02/06/17 at 06:00 Rifaximin (Xifaxan) 550 mg BID PO Last administered on 02/17/17 08:28; Admin Dose 550 MG; Start 02/06/17 at 09:00 Folic Acid (Folic Acid) 1 mg DAILY PO Last administered on 02/17/17 08:28; Admin Dose 1 MG; Start 02/06/17 at 09:00 Aripiprazole (Abilify) 1 mg HS PO Last administered on 02/15/17 20:17; Admin Dose 1 MG; Start 02/06/17 at 21:00 Morphine Sulfate (morphine) 2 mg Q3H PRN IV PAIN Last administered on 02/17/17 13:47; Admin Dose 2 MG; Start 02/06/17 at 01:00 Citric Acid/ Sodium Citrate (Bicitra) 30 ml TID PO Last administered on 14:01; Admin Dose 30 ML; Start 02/06/17 at 21:00 Propranolol HCl (Inderal) 10 mg BID PO ; Start 02/10/17 at 21:00; Status Future Hold Ondansetron HCl (Zofran Inj) 4 mg Q6H PRN IV NAUSEA AND/OR VOMITING Last administered on 02/16/17 18:01; Admin Dose 4 MG; Start 02/12/17 at 09:30 Sodium Chloride 1 gm 1 gm BID PO Last administered on 02/17/17 08:28; Admin Dose 1 GM; Start 02/16/17 at 21:00 Phytonadione/ Dextrose (Vitamin K/D5W) 50.5 ml @ 101 mls/hr DAILY IVPB Last administered on 02/17/17 10:13; Admin Dose 101 MLS/HR; Start 02/16/17 at 17:00; Stop 02/18/17 at 09:29 DAFNE LECHUGA Feb 17, 2017 19:06
--- NOTE | 2017-02-17 19:31 | CONS ---
Date/Time of Note Date/Time of Note DATE: 02/17/17 TIME: 19:26 Assessment/Plan Assessment/Plan Chief Complaint/Hosp Course IMPRESSION: 1. Exertional chest pain, assess for acute coronary syndrome.-negative troponin x 3. EF >65% by echo this admit 2. Dyspnea on exertion, assess for congestive heart failure.-increased BNP,. 3. Abnormal electrocardiogram, assess for acute coronary syndrome.-negative troponin x 3/NL EF by echo >65% this admit 4. Liver cirrhosis. 5. Nausea, vomiting. 6. ETOH abuse. 7. Polysubstance abuse. 8. Human immunodeficiency virus positivity. 9. Renal failure. 10. Hyponatremia. 11. Coagulopathy. 12. Anemia. 13. Thrombocytopenia. 14.Hypotension-intermittent/labile 15.Hyponatremia REcc: -Tele -Continue abx's and f/u cx data -Would attempt gentle diuresis following NA closely -Continue salt tabs -Holding propranolol given hypotension -Continue PPI Problems: Consultation Date/Type/Reason Admit Date/Time February 05, 2017 at 18:37 Initial Consult Date 02/07/17 Type of Consultation: Cardiology Reason for Consultation Chest pain Referring Provider: CARL GRANT MD Exam/Review of Systems Vital Signs Vitals Vital Signs Date Time Temp Pulse Resp B/P Pulse Ox O2 Delivery O2 Flow Rate FiO2 02/17/17 19:22 97.7 85 18 100/54 100 Intake and Output 02/16/17 02/16/17 02/17/17 15:00 23:00 07:00 Intake Total 1520 ml 455 ml Output Total 1200 ml 550 ml Balance 320 ml -95 ml Exam Review of Systems: CONSTITUTIONAL: No fevers, chills. PULMONARY: No sob CARDIOVASCULAR: No chest pain/palpitations GASTROINTESTINAL: No nausea/vomiting. GENITOURINARY: No hematuria/dysuria. MUSCULOSKELETAL: No myagias/arthalgias. PSYCHIATRIC: The patient denies depression. NEUROLOGIC: No weakness Constitutional: alert, oriented Psych: no complaints Head: normocephalic ENMT: mucosa pink and moist Neck: jvd (9 cm water), supple Respiratory: diminished breath sounds (at bases/B) Cardiovascular: regular rate and rhythm Gastrointestinal: non-tender, soft Extremities: pitting pedal edema (Bilateral) Neurological: other (No focal deficits) Results Result Diagram: 02/17/17 0658 02/17/17 0658 Results 24 hrs Laboratory Tests Test 02/17/17 05:16 02/17/17 06:58 02/17/17 11:51 Lab Scanned Report BLOOD TRANSFUSION REFERENCE LAB White Blood Count 8.8 Red Blood Count 2.45 L Hemoglobin 8.0 L Hematocrit 22.9 L Mean Corpuscular Volume 93.5 Mean Corpuscular Hemoglobin 32.7 Mean Corpuscular Hemoglobin Concent 34.9 Red Cell Distribution Width 16.6 H Platelet Count 41 L Mean Platelet Volume 11.7 H Neutrophils % 77.4 H Lymphocytes % 8.8 L Monocytes % 9.6 Eosinophils % 3.1 Basophils % 0.5 Nucleated Red Blood Cells % 0.0 Neutrophils # 6.8 Lymphocytes # 0.8 Monocytes # 0.8 Eosinophils # 0.3 Basophils # 0.0 Nucleated Red Blood Cells # 0.0 Prothrombin Time 25.0 #H Prothrombin Time Ratio 2.0 INR International Normalized Ratio 2.24 Activated Partial Thromboplast Time 47.7 H Thrombin Time 20.9 H Sodium Level 126 L Potassium Level 3.4 L Chloride Level 96 L Carbon Dioxide Level 23 Anion Gap 10 Blood Urea Nitrogen 51 H Creatinine 1.46 H Glucose Level 114 Calcium Level 9.1 Medications Medications Current Medications Multivitamins Therapeutic (Theragran) 1 tab DAILY PO Last administered on 08:27; Admin Dose 1 TAB; Start 02/06/17 at 09:00 Thiamine HCl (Vitamin B1) 100 mg DAILY PO Last administered on 02/17/17 08:28; Admin Dose 100 MG; Start 02/06/17 at 09:00 Lactulose (Enulose) 20 gm Q4 PRN PO CONSTIPATION Last administered on 17:07; Admin Dose 20 GM; Start 02/06/17 at 00:00 Pantoprazole (Protonix Tab) 40 mg DAILY@06 PO Last administered on 02/17/17 06: 32; Admin Dose 40 MG; Start 02/06/17 at 06:00 Rifaximin (Xifaxan) 550 mg BID PO Last administered on 02/17/17 08:28; Admin Dose 550 MG; Start 02/06/17 at 09:00 Folic Acid (Folic Acid) 1 mg DAILY PO Last administered on 02/17/17 08:28; Admin Dose 1 MG; Start 02/06/17 at 09:00 Aripiprazole (Abilify) 1 mg HS PO Last administered on 02/15/17 20:17; Admin Dose 1 MG; Start 02/06/17 at 21:00 Morphine Sulfate (morphine) 2 mg Q3H PRN IV PAIN Last administered on 02/17/17 19:11; Admin Dose 2 MG; Start 02/06/17 at 01:00 Citric Acid/ Sodium Citrate (Bicitra) 30 ml TID PO Last administered on 14:01; Admin Dose 30 ML; Start 02/06/17 at 21:00 Propranolol HCl (Inderal) 10 mg BID PO ; Start 02/10/17 at 21:00; Status Future Hold Ondansetron HCl (Zofran Inj) 4 mg Q6H PRN IV NAUSEA AND/OR VOMITING Last administered on 02/16/17 18:01; Admin Dose 4 MG; Start 02/12/17 at 09:30 Sodium Chloride 1 gm 1 gm BID PO Last administered on 02/17/17 08:28; Admin Dose 1 GM; Start 02/16/17 at 21:00 Phytonadione/ Dextrose (Vitamin K/D5W) 50.5 ml @ 101 mls/hr DAILY IVPB Last administered on 02/17/17 10:13; Admin Dose 101 MLS/HR; Start 02/16/17 at 17:00; Stop 02/18/17 at 09:29 SHAY COTTRELL Feb 17, 2017 19:31
--- NOTE | 2017-02-17 20:32 | CONS ---
Date/Time of Note Date/Time of Note DATE: 02/17/17 TIME: 20:30 Assessment/Plan Assessment/Plan Additional Assessment/Plan Additional Assessment/Plan IMPRESSION: 1. Hyponatremia secondary to liver cirrhosis. 2. Acute kidney injury without heptorenal syndrome, likely secondary to prerenal azotemia in the setting of decompensated liver cirrhosis. 3. 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 History of recurrent ascites, status post last paracentesis done 3 weeks ago , 1.6 liters of fluid was removed. 5. Acute hyperkalemia, possibly secondary to Bactrim. 6. H/o ascites, status post a paracentesis 3 L of fluid was removed 7. Pedal edema 4+ 8. False-positive HIV PLAN: - EtOH cessation counseled - [facility] referral for liver transplant evaluation if patient is not an active drinker - continue lactulose and rifaximen for hepatic encephalopathy - continue low dose lasix, titrate as tolerated by kidney function P.o. fluid restriction - add spironolactone if potassium normalizes. Consultation Date/Type/Reason Admit Date/Time February 05, 2017 at 18:37 Initial Consult Date 02/06/17 Type of Consultation: Cardiology Referring Provider: CARL GRANT MD 24 HR Interval Summary Constitutional: improved Exam/Review of Systems Vital Signs Vitals Vital Signs Date Time Temp Pulse Resp B/P Pulse Ox O2 Delivery O2 Flow Rate FiO2 02/17/17 20:07 96 02/17/17 19:22 97.7 18 100/54 100 Intake and Output 02/16/17 02/16/17 02/17/17 15:00 23:00 07:00 Intake Total 1520 ml 455 ml Output Total 1200 ml 550 ml Balance 320 ml -95 ml Exam Constitutional: alert, oriented, well developed Psych: nl mood/affect, no complaints Head: atraumatic, normocephalic Eyes: EOMI, PERRL, nl conjunctiva, nl lids, nl sclera ENMT: nl external ears & nose, nl lips & teeth, nl nasal mucosa & septum Neck: non-tender, supple Respiratory: clear to auscultation, normal air movement Cardiovascular: nl pulses, regular rate and rhythm Gastrointestinal: nl liver, spleen, non-tender, soft Musculoskeletal: nl extremities to inspection, nl gait and stance Extremities: normal pulses 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, nl mental status, nl speech, nl strength Skin: nl turgor, No rash or lesions Lymph: nl lymph nodes Results Result Diagram: 02/17/17 0658 02/17/17 0658 Results 24 hrs Laboratory Tests Test 02/17/17 05:16 02/17/17 06:58 02/17/17 11:51 Lab Scanned Report BLOOD TRANSFUSION REFERENCE LAB White Blood Count 8.8 Red Blood Count 2.45 L Hemoglobin 8.0 L Hematocrit 22.9 L Mean Corpuscular Volume 93.5 Mean Corpuscular Hemoglobin 32.7 Mean Corpuscular Hemoglobin Concent 34.9 Red Cell Distribution Width 16.6 H Platelet Count 41 L Mean Platelet Volume 11.7 H Neutrophils % 77.4 H Lymphocytes % 8.8 L Monocytes % 9.6 Eosinophils % 3.1 Basophils % 0.5 Nucleated Red Blood Cells % 0.0 Neutrophils # 6.8 Lymphocytes # 0.8 Monocytes # 0.8 Eosinophils # 0.3 Basophils # 0.0 Nucleated Red Blood Cells # 0.0 Prothrombin Time 25.0 #H Prothrombin Time Ratio 2.0 INR International Normalized Ratio 2.24 Activated Partial Thromboplast Time 47.7 H Thrombin Time 20.9 H Sodium Level 126 L Potassium Level 3.4 L Chloride Level 96 L Carbon Dioxide Level 23 Anion Gap 10 Blood Urea Nitrogen 51 H Creatinine 1.46 H Glucose Level 114 Calcium Level 9.1 Medications Medications Current Medications Multivitamins Therapeutic (Theragran) 1 tab DAILY PO Last administered on 08:27; Admin Dose 1 TAB; Start 02/06/17 at 09:00 Thiamine HCl (Vitamin B1) 100 mg DAILY PO Last administered on 02/17/17 08:28; Admin Dose 100 MG; Start 02/06/17 at 09:00 Lactulose (Enulose) 20 gm Q4 PRN PO CONSTIPATION Last administered on 17:07; Admin Dose 20 GM; Start 02/06/17 at 00:00 Pantoprazole (Protonix Tab) 40 mg DAILY@06 PO Last administered on 02/17/17 06: 32; Admin Dose 40 MG; Start 02/06/17 at 06:00 Rifaximin (Xifaxan) 550 mg BID PO Last administered on 02/17/17 08:28; Admin Dose 550 MG; Start 02/06/17 at 09:00 Folic Acid (Folic Acid) 1 mg DAILY PO Last administered on 02/17/17 08:28; Admin Dose 1 MG; Start 02/06/17 at 09:00 Aripiprazole (Abilify) 1 mg HS PO Last administered on 02/15/17 20:17; Admin Dose 1 MG; Start 02/06/17 at 21:00 Morphine Sulfate (morphine) 2 mg Q3H PRN IV PAIN Last administered on 02/17/17 19:11; Admin Dose 2 MG; Start 02/06/17 at 01:00 Citric Acid/ Sodium Citrate (Bicitra) 30 ml TID PO Last administered on 14:01; Admin Dose 30 ML; Start 02/06/17 at 21:00 Propranolol HCl (Inderal) 10 mg BID PO ; Start 02/10/17 at 21:00; Status Future Hold Ondansetron HCl (Zofran Inj) 4 mg Q6H PRN IV NAUSEA AND/OR VOMITING Last administered on 02/16/17 18:01; Admin Dose 4 MG; Start 02/12/17 at 09:30 Sodium Chloride 1 gm 1 gm BID PO Last administered on 02/17/17 08:28; Admin Dose 1 GM; Start 02/16/17 at 21:00 Phytonadione/ Dextrose (Vitamin K/D5W) 50.5 ml @ 101 mls/hr DAILY IVPB Last administered on 02/17/17 10:13; Admin Dose 101 MLS/HR; Start 02/16/17 at 17:00; Stop 02/18/17 at 09:29 Furosemide (Lasix) 20 mg DAILY IV ; Start 02/18/17 at 09:00 IGNACIA HERR MD Feb 17, 2017 20:32
[2017-02-17] MEDS: ARIPIPRAZOLE 2 MG TAB PO SCH (21:00)
--- NOTE | 2017-02-17 22:06 | CONS ---
Date/Time of Note Date/Time of Note DATE: 02/17/17 TIME: 22:02 Assessment/Plan Assessment/Plan Chief Complaint/Hosp Course - false positive initial HIV screen (positive by an initial screen, negative by a confirmatory antibody), HIV 1 viral load was undetectable twice, 4th generation HIV Ag/Ab combination test was unreactive. Pt denies a trip to or living in the parts of world endemic for HIV 2. - decompensated liver cirrhosis due to alcohol - Hyponatremia likely secondary to cirrhosis - Acute on chronic anemia requiring blood transfusion - Coagulopathy due to liver disease - Thrombocytopenia - Hyperammonemia - AGATA - Portal hypertension - Cholelithiasis - Recurrent ascites s/p paracentesis ~4 weeks ago with 1.6 L removed, repeat paracentesis on 02/17/2017 s/p 3 L removal - S/p hyperkalemia - H/o alcoholism - H/o substance abuse recommendations: - I called the lab to add appropriate fluid tests on his ascites: cell count and diff, albumin, cultures - monitor off antibiotics at this time management 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, 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: Consultation Date/Type/Reason Admit Date/Time February 05, 2017 at 18:37 Initial Consult Date 02/07/17 Type of Consultation: ID Referring Provider: CARL GRANT MD 24 HR Interval Summary Constitutional: other (fatigued) Detailed Summary Eyes: no complaints ENT: no complaints Respiratory: no complaints Cardiovascular: no complaints Gastrointestinal: decreased appetite, pain, No nausea Genitourinary: no complaints Musculoskeletal: no complaints Skin: no complaints Lymphatic: lymphadema Exam/Review of Systems Vital Signs Vitals Vital Signs Date Time Temp Pulse Resp B/P Pulse Ox O2 Delivery O2 Flow Rate FiO2 02/17/17 20:07 96 02/17/17 19:22 97.7 18 100/54 100 Intake and Output 02/16/17 02/16/17 02/17/17 15:00 23:00 07:00 Intake Total 1520 ml 455 ml Output Total 1200 ml 550 ml Balance 320 ml -95 ml Exam Constitutional: alert, frail Psych: nl mood/affect, no complaints Head: normocephalic Eyes: icteric ENMT: nl external ears & nose, nl nasal mucosa & septum Respiratory: clear to auscultation, normal air movement Cardiovascular: nl pulses, regular rate and rhythm Gastrointestinal: ascites, distended, No firm, No mass, No tender Extremities: edema, pitting pedal edema Neurological: lethargic Skin: other (cobblestoning of b/l LE) Results Result Diagram: 02/17/17 0658 02/17/17 0658 Results 24 hrs Laboratory Tests Test 02/17/17 05:16 02/17/17 06:58 02/17/17 11:51 Lab Scanned Report BLOOD TRANSFUSION REFERENCE LAB White Blood Count 8.8 Red Blood Count 2.45 L Hemoglobin 8.0 L Hematocrit 22.9 L Mean Corpuscular Volume 93.5 Mean Corpuscular Hemoglobin 32.7 Mean Corpuscular Hemoglobin Concent 34.9 Red Cell Distribution Width 16.6 H Platelet Count 41 L Mean Platelet Volume 11.7 H Neutrophils % 77.4 H Lymphocytes % 8.8 L Monocytes % 9.6 Eosinophils % 3.1 Basophils % 0.5 Nucleated Red Blood Cells % 0.0 Neutrophils # 6.8 Lymphocytes # 0.8 Monocytes # 0.8 Eosinophils # 0.3 Basophils # 0.0 Nucleated Red Blood Cells # 0.0 Prothrombin Time 25.0 #H Prothrombin Time Ratio 2.0 INR International Normalized Ratio 2.24 Activated Partial Thromboplast Time 47.7 H Thrombin Time 20.9 H Sodium Level 126 L Potassium Level 3.4 L Chloride Level 96 L Carbon Dioxide Level 23 Anion Gap 10 Blood Urea Nitrogen 51 H Creatinine 1.46 H Glucose Level 114 Calcium Level 9.1 Medications Medications Current Medications Multivitamins Therapeutic (Theragran) 1 tab DAILY PO Last administered on 08:27; Admin Dose 1 TAB; Start 02/06/17 at 09:00 Thiamine HCl (Vitamin B1) 100 mg DAILY PO Last administered on 02/17/17 08:28; Admin Dose 100 MG; Start 02/06/17 at 09:00 Lactulose (Enulose) 20 gm Q4 PRN PO CONSTIPATION Last administered on 17:07; Admin Dose 20 GM; Start 02/06/17 at 00:00 Pantoprazole (Protonix Tab) 40 mg DAILY@06 PO Last administered on 02/17/17 06: 32; Admin Dose 40 MG; Start 02/06/17 at 06:00 Rifaximin (Xifaxan) 550 mg BID PO Last administered on 02/17/17 21:14; Admin Dose 550 MG; Start 02/06/17 at 09:00 Folic Acid (Folic Acid) 1 mg DAILY PO Last administered on 02/17/17 08:28; Admin Dose 1 MG; Start 02/06/17 at 09:00 Aripiprazole (Abilify) 1 mg HS PO Last administered on 02/15/17 20:17; Admin Dose 1 MG; Start 02/06/17 at 21:00 Morphine Sulfate (morphine) 2 mg Q3H PRN IV PAIN Last administered on 02/17/17 19:11; Admin Dose 2 MG; Start 02/06/17 at 01:00 Citric Acid/ Sodium Citrate (Bicitra) 30 ml TID PO Last administered on 21:14; Admin Dose 30 ML; Start 02/06/17 at 21:00 Propranolol HCl (Inderal) 10 mg BID PO ; Start 02/10/17 at 21:00; Status Future Hold Ondansetron HCl (Zofran Inj) 4 mg Q6H PRN IV NAUSEA AND/OR VOMITING Last administered on 02/16/17 18:01; Admin Dose 4 MG; Start 02/12/17 at 09:30 Sodium Chloride 1 gm 1 gm BID PO Last administered on 02/17/17 21:14; Admin Dose 1 GM; Start 02/16/17 at 21:00 Phytonadione/ Dextrose (Vitamin K/D5W) 50.5 ml @ 101 mls/hr DAILY IVPB Last administered on 02/17/17 10:13; Admin Dose 101 MLS/HR; Start 02/16/17 at 17:00; Stop 02/18/17 at 09:29 Furosemide (Lasix) 20 mg DAILY IV ; Start 02/18/17 at 09:00 AKSHAT MCGRATH M.D. Feb 17, 2017 22:06
[2017-02-18] VITALS (12 sets, daily range): BP systolic 92–124; BP diastolic 50–68; PULSE 76–91; RESP 16–18
[2017-02-18] MEDS: morphine 2 MG INJ IV PRN ×4 (03:31→23:02)
[2017-02-18] MEDS: PANTOPRAZOLE (EC) 40 MG TAB PO SCH (05:46)
[2017-02-18] MEDS: CITRIC ACID/SODIUM CITRATE 15 ML CUP PO SCH ×3 (10:14→20:19)
[2017-02-18] MEDS: RIFAXIMIN 550 MG TAB PO SCH ×2 (10:14→20:19)
[2017-02-18] MEDS: FOLIC ACID 1 MG TAB PO SCH (10:14)
[2017-02-18] MEDS: MULTIVITAMINS THERAPEUTIC TAB PO SCH (10:15)
[2017-02-18] MEDS: SODIUM CHLORIDE 1 GM TAB PO SCH ×2 (10:15→20:19)
[2017-02-18] MEDS: THIAMINE 100 MG TAB PO SCH (10:15)
--- NOTE | 2017-02-18 11:49 | CONS ---
Date/Time of Note Date/Time of Note DATE: 02/18/17 TIME: 11:46 Assessment/Plan Assessment/Plan Chief Complaint/Hosp Course - false positive initial HIV screen (positive by an initial screen, negative by a confirmatory antibody), HIV 1 viral load was undetectable twice, 4th generation HIV Ag/Ab combination test was unreactive. Pt denies a trip to or living in the parts of world endemic for HIV 2. - decompensated liver cirrhosis due to alcohol - Hyponatremia likely secondary to cirrhosis - Acute on chronic anemia requiring blood transfusion - Coagulopathy due to liver disease - Thrombocytopenia - Hyperammonemia - AGATA - Portal hypertension - Cholelithiasis - Recurrent ascites s/p paracentesis ~4 weeks ago with 1.6 L removed, repeat paracentesis on 02/17/2017 s/p 3 L removal - S/p hyperkalemia - H/o alcoholism - H/o substance abuse recommendations: - the main lab and micro lab informed me that no ascetic fluid was received there and so cell count, albumin and culture could not be done - monitor off antibiotics at this time management 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, 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, 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: Consultation Date/Type/Reason Admit Date/Time February 05, 2017 at 18:37 Initial Consult Date 02/07/17 Type of Consultation: ID Referring Provider: CARL GRANT MD 24 HR Interval Summary Constitutional: poor po Detailed Summary Eyes: no complaints ENT: no complaints Respiratory: no complaints Cardiovascular: no complaints Gastrointestinal: pain (from bloating) Genitourinary: no complaints Musculoskeletal: other (pain from edema), swelling Skin: other (jaundice), No pruritis Neurologic: other (tremor of R hand) Lymphatic: lymphadema Exam/Review of Systems Vital Signs Vitals Vital Signs Date Time Temp Pulse Resp B/P Pulse Ox O2 Delivery O2 Flow Rate FiO2 02/18/17 11:33 97.9 79 18 121/62 99 Intake and Output 02/17/17 02/17/17 02/18/17 15:00 23:00 07:00 Intake Total 50.5 ml 770 ml Output Total 800 ml Balance 50.5 ml -30 ml Exam Constitutional: alert, frail Psych: nl mood/affect, no complaints Head: atraumatic, normocephalic Eyes: icteric ENMT: nl external ears & nose, nl nasal mucosa & septum Neck: supple Gastrointestinal: ascites, bowel sounds, distended, No firm, No mass, No rebound or guarding Musculoskeletal: swelling Extremities: edema, pitting pedal edema Neurological: other (asterixis of R hand) Skin: other (jaundiced) Results Result Diagram: 02/17/17 0658 02/17/17 0658 Results 24 hrs Laboratory Tests Test 02/17/17 11:51 02/18/17 06:42 Lab Scanned Report REFERENCE LAB BLOOD TRANSFUSION Medications Medications Current Medications Multivitamins Therapeutic (Theragran) 1 tab DAILY PO Last administered on 10:15; Admin Dose 1 TAB; Start 02/06/17 at 09:00 Thiamine HCl (Vitamin B1) 100 mg DAILY PO Last administered on 02/18/17 10:15; Admin Dose 100 MG; Start 02/06/17 at 09:00 Lactulose (Enulose) 20 gm Q4 PRN PO CONSTIPATION Last administered on 17:07; Admin Dose 20 GM; Start 02/06/17 at 00:00 Pantoprazole (Protonix Tab) 40 mg DAILY@06 PO Last administered on 02/18/17 05: 46; Admin Dose 40 MG; Start 02/06/17 at 06:00 Rifaximin (Xifaxan) 550 mg BID PO Last administered on 02/18/17 10:14; Admin Dose 550 MG; Start 02/06/17 at 09:00 Folic Acid (Folic Acid) 1 mg DAILY PO Last administered on 02/18/17 10:14; Admin Dose 1 MG; Start 02/06/17 at 09:00 Aripiprazole (Abilify) 1 mg HS PO Last administered on 02/15/17 20:17; Admin Dose 1 MG; Start 02/06/17 at 21:00 Morphine Sulfate (morphine) 2 mg Q3H PRN IV PAIN Last administered on 02/18/17 06:42; Admin Dose 2 MG; Start 02/06/17 at 01:00 Citric Acid/ Sodium Citrate (Bicitra) 30 ml TID PO Last administered on 10:14; Admin Dose 30 ML; Start 02/06/17 at 21:00 Propranolol HCl (Inderal) 10 mg BID PO ; Start 02/10/17 at 21:00; Status Future Hold Ondansetron HCl (Zofran Inj) 4 mg Q6H PRN IV NAUSEA AND/OR VOMITING Last administered on 02/16/17 18:01; Admin Dose 4 MG; Start 02/12/17 at 09:30 Sodium Chloride (Nacl) 1 gm BID PO Last administered on 02/18/17 10:15; Admin Dose 1 GM; Start 02/16/17 at 21:00 Furosemide (Lasix) 20 mg DAILY IV ; Start 02/18/17 at 09:00 AKSHAT MCGRATH M.D. Feb 18, 2017 11:49
[2017-02-18] MEDS ORDERED: LIDOCAINE 1% (MPF) 5 ML VIAL SC ONE (12:00)
--- NOTE | 2017-02-18 15:04 | CONS ---
Date/Time of Note Date/Time of Note DATE: 02/18/17 TIME: 14:50 Assessment/Plan Assessment/Plan Chief Complaint/Hosp Course The patient is a 56-year-old male patient with a history of alcoholic liver cirrhosis, hemophilia, admitted with hepatorenal syndrome-nephrology. No active bleeding. Hematology consulted due to history of hemophilia and thrombocytopenia. # Thrombocytopenia, likely related to alcoholic liver cirrhosis and splenomegaly - platelet count 79 at [place], now stable at 40-60K. Continue to monitor, no evidence of bleeding - Transfuse < 10, < 50 if bleeding, otherwise monitor - HIV screen positive, however HIV Antibody 1/2 confirm negative, probably false positive per ID. 4th generation HIV testing returned as non-reactive. Appreciate ID recs. - Hepatitis panel negative, unlikely DIC as prolongation of caogs and low fibrinogen likely related to liver disease. No need to give cryoprecipitate unless patient bleeding. - Abdominal US showed 1. Coarsened hepatic echotexture and suggested liver surface nodularity and mild common bile duct dilatation. - MRI Abdomen 02/08/17 showed 1. Cirrhosis without definite evidence of focal hepatic lesion. 2. Small ascites and splenomegaly. 3. Cholelithiasis with irregular gallbladder wall thickening may be related to chronic cholecystitis however cannot rule out underlying gallbladder mass lesion. 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 Kehinde Jimenez who informed me that he does not have a history of hemophilia but rather simply coagulopathy due to liver disease. However, the patient states that he was diagnosed in his 20s with hemophilia, prior to liver disease, diagnosed by Dr. Hu (now ) in [place]. 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 Factor IX low at 28%, difficult to determine whether related to liver disease, but even if patient does have mild hemophilia B it would be mild. Factor VIII level elevated 22. 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 If needs repeat paracentesis , can give further FFP and factor IX, plus vitamin K as needed . # Macrocytic anemia, MCV 101.6, Hgb 8.5 at [place] - Hgb 6.5 with MCV 99.0 on 02/07/17, s/p 2 units pRBCs now stable in 8-10 range. Transfuse < 8. s/p 1 unit pRBCs 02/16/17 for Hgb 7.7, now Hgb 8.0. Continue to monitor. - iron panel with Fe 109, TIBC low at 125, %87, ferritin 1250 consistent with anemia of chronic inflammation, B12/folate/TSH SNL, homocysteine elevated at 29.9; methylmalonic acid normal at 118. Therefore, patient may benefit from folate supplementation, as increased homocysteine is tied to increased cardiovascular risk and folate administration may lower homocysteine though unclear whether decreases cardiovascular risk. Patient noted to already be on folate. LDH elevated, retic count inappropriately low; haptoglobin < 15 (though likely low due to liver disease) Case management request for auth to be obtained for outpatient follow-up with me or Dr. Naya Dawson Problems: Consultation Date/Type/Reason Admit Date/Time February 05, 2017 at 18:37 Initial Consult Date 02/06/17 Type of Consultation: Hematology Referring Provider: CARL GRANT MD 24 HR Interval Summary Free Text/Dictation The patient continues to have significant abdominal distention and edema, even after paracentesis yesterday with removal of 3L fluid. Exam/Review of Systems Vital Signs Vitals Vital Signs Date Time Temp Pulse Resp B/P Pulse Ox O2 Delivery O2 Flow Rate FiO2 02/18/17 12:06 82 02/18/17 11:33 97.9 18 121/62 99 Intake and Output 02/17/17 02/17/17 02/18/17 15:00 23:00 07:00 Intake Total 50.5 ml 770 ml Output Total 800 ml Balance 50.5 ml -30 ml Exam Constitutional: alert, oriented, well developed, jaunduced Head: normocephalic Eyes: icteric ENMT: nl external ears & nose Neck: non-tender Respiratory: clear to auscultation Cardiovascular: nl pulses Gastrointestinal: distended, ascites Musculoskeletal: +edema bilaterally Extremities: normal pulses, bruises Neurological: nl mental status, nl speech Results Result Diagram: 02/17/17 0658 02/17/17 0658 Results 24 hrs Laboratory Tests Test 02/18/17 06:42 Lab Scanned Report BLOOD TRANSFUSION Medications Medications Current Medications Multivitamins Therapeutic (Theragran) 1 tab DAILY PO Last administered on 10:15; Admin Dose 1 TAB; Start 02/06/17 at 09:00 Thiamine HCl (Vitamin B1) 100 mg DAILY PO Last administered on 02/18/17 10:15; Admin Dose 100 MG; Start 02/06/17 at 09:00 Lactulose (Enulose) 20 gm Q4 PRN PO CONSTIPATION Last administered on 17:07; Admin Dose 20 GM; Start 02/06/17 at 00:00 Pantoprazole (Protonix Tab) 40 mg DAILY@06 PO Last administered on 02/18/17 05: 46; Admin Dose 40 MG; Start 02/06/17 at 06:00 Rifaximin (Xifaxan) 550 mg BID PO Last administered on 02/18/17 10:14; Admin Dose 550 MG; Start 02/06/17 at 09:00 Folic Acid (Folic Acid) 1 mg DAILY PO Last administered on 02/18/17 10:14; Admin Dose 1 MG; Start 02/06/17 at 09:00 Aripiprazole (Abilify) 1 mg HS PO Last administered on 02/15/17 20:17; Admin Dose 1 MG; Start 02/06/17 at 21:00 Morphine Sulfate (morphine) 2 mg Q3H PRN IV PAIN Last administered on 02/18/17 06:42; Admin Dose 2 MG; Start 02/06/17 at 01:00 Citric Acid/ Sodium Citrate (Bicitra) 30 ml TID PO Last administered on 10:14; Admin Dose 30 ML; Start 02/06/17 at 21:00 Propranolol HCl (Inderal) 10 mg BID PO ; Start 02/10/17 at 21:00; Status Future Hold Ondansetron HCl (Zofran Inj) 4 mg Q6H PRN IV NAUSEA AND/OR VOMITING Last administered on 02/16/17 18:01; Admin Dose 4 MG; Start 02/12/17 at 09:30 Sodium Chloride (Nacl) 1 gm BID PO Last administered on 02/18/17 10:15; Admin Dose 1 GM; Start 02/16/17 at 21:00 Furosemide (Lasix) 20 mg DAILY IV ; Start 02/18/17 at 09:00 TOABRAM MD Feb 18, 2017 15:04
--- NOTE | 2017-02-18 16:18 | RADRPT ---
PROCEDURE: US guidance for PICC line CLINICAL INDICATION: PICC line placement TECHNIQUE: Multiple real-time images were acquired of the patient's arm utilizing a high resolutio n transducer. This was performed by the PICC line nurse for venous access. COMPARISON: None FINDINGS: Ultrasound guidance for PICC line placement. IMPRESSION: Ultrasound guidance for PICC line placement. RPTAT: AA .Moises Byrne MD, MD Date Time Electronically viewed and signed by .Moises Byrne MD, on 02/18/2017 16:18 .S/
--- NOTE | 2017-02-18 16:20 | RADRPT ---
PROCEDURE: XR Chest. CLINICAL INDICATION: PICC line placement TECHNIQUE: Single frontal view of the chest was obtained COMPARISON: 02/09/17 FINDINGS: There is a new left-sided PICC line in place with its tip overlying the cavoatrial junction. There is mild cardiomegaly. The lungs are clear. RPTAT: AA IMPRESSION: New PICC line in appropriate position. .Moises Byrne MD, MD Date Time Electronically viewed and signed by .Moises Byrne MD, on 02/18/2017 16:19 .S/
--- NOTE | 2017-02-18 16:37 | CONS ---
Date/Time of Note Date/Time of Note DATE: 02/18/17 TIME: 16:35 Assessment/Plan Assessment/Plan Chief Complaint/Hosp Course IMPRESSION: 1. Exertional chest pain, assess for acute coronary syndrome.-negative troponin x 3. EF >65% by echo this admit 2. Dyspnea on exertion, assess for congestive heart failure.-increased BNP,. 3. Abnormal electrocardiogram, assess for acute coronary syndrome.-negative troponin x 3/NL EF by echo >65% this admit 4. Liver cirrhosis. 5. Nausea, vomiting. 6. ETOH abuse. 7. Polysubstance abuse. 8. Human immunodeficiency virus positivity. 9. Renal failure. 10. Hyponatremia. 11. Coagulopathy. 12. Anemia. 13. Thrombocytopenia. 14.Hypotension-intermittent/labile 15.Hyponatremia REcc: -Tele -Continue abx's and f/u cx data -Continue gentle diuresis following NA and BP closely -Continue salt tabs -Holding propranolol given hypotension -Continue PPI Problems: Consultation Date/Type/Reason Admit Date/Time February 05, 2017 at 18:37 Initial Consult Date 02/07/17 Type of Consultation: Cardiology Reason for Consultation Chest pain Referring Provider: CARL GRANT MD Exam/Review of Systems Vital Signs Vitals Vital Signs Date Time Temp Pulse Resp B/P Pulse Ox O2 Delivery O2 Flow Rate FiO2 02/18/17 16:05 91 02/18/17 15:20 98.2 18 107/62 98 Intake and Output 02/17/17 02/17/17 02/18/17 15:00 23:00 07:00 Intake Total 50.5 ml 770 ml Output Total 800 ml Balance 50.5 ml -30 ml Exam Review of Systems: CONSTITUTIONAL: No fevers, chills. PULMONARY: mild sob CARDIOVASCULAR: No chest pain/palpitations GASTROINTESTINAL: No nausea/vomiting. GENITOURINARY: No hematuria/dysuria. MUSCULOSKELETAL: No myagias/arthalgias. PSYCHIATRIC: The patient denies depression. NEUROLOGIC: No weakness Constitutional: alert Psych: no complaints Head: normocephalic ENMT: mucosa pink and moist Neck: jvd (9 cm water), supple Respiratory: diminished breath sounds (at bases/B) Cardiovascular: regular rate and rhythm Gastrointestinal: non-tender, soft Musculoskeletal: muscle tone (normal) Extremities: pitting pedal edema (Bilateral) Neurological: other (No focal deficits) Results Result Diagram: 02/17/17 0658 02/17/17 0658 Results 24 hrs Laboratory Tests Test 02/18/17 06:42 Lab Scanned Report BLOOD TRANSFUSION Medications Medications Current Medications Multivitamins Therapeutic (Theragran) 1 tab DAILY PO Last administered on 10:15; Admin Dose 1 TAB; Start 02/06/17 at 09:00 Thiamine HCl (Vitamin B1) 100 mg DAILY PO Last administered on 02/18/17 10:15; Admin Dose 100 MG; Start 02/06/17 at 09:00 Lactulose (Enulose) 20 gm Q4 PRN PO CONSTIPATION Last administered on 17:07; Admin Dose 20 GM; Start 02/06/17 at 00:00 Pantoprazole (Protonix Tab) 40 mg DAILY@06 PO Last administered on 02/18/17 05: 46; Admin Dose 40 MG; Start 02/06/17 at 06:00 Rifaximin (Xifaxan) 550 mg BID PO Last administered on 02/18/17 10:14; Admin Dose 550 MG; Start 02/06/17 at 09:00 Folic Acid (Folic Acid) 1 mg DAILY PO Last administered on 02/18/17 10:14; Admin Dose 1 MG; Start 02/06/17 at 09:00 Aripiprazole (Abilify) 1 mg HS PO Last administered on 02/15/17 20:17; Admin Dose 1 MG; Start 02/06/17 at 21:00 Morphine Sulfate (morphine) 2 mg Q3H PRN IV PAIN Last administered on 02/18/17 06:42; Admin Dose 2 MG; Start 02/06/17 at 01:00 Citric Acid/ Sodium Citrate (Bicitra) 30 ml TID PO Last administered on 10:14; Admin Dose 30 ML; Start 02/06/17 at 21:00 Propranolol HCl (Inderal) 10 mg BID PO ; Start 02/10/17 at 21:00; Status Future Hold Ondansetron HCl (Zofran Inj) 4 mg Q6H PRN IV NAUSEA AND/OR VOMITING Last administered on 02/16/17 18:01; Admin Dose 4 MG; Start 02/12/17 at 09:30 Sodium Chloride (Nacl) 1 gm BID PO Last administered on 02/18/17t 10:15; Admin Dose 1 GM; Start 02/16/17 at 21:00 Furosemide (Lasix) 20 mg DAILY IV ; Start 02/18/17 at 09:00 IV Flush (NS 10 ml) 10 ml PRN PRN IV IV PROTOCOL; Start 02/18/17 at 16:00 SHAY COTTRELL Feb 18, 2017 16:37
--- NOTE | 2017-02-18 17:02 | CONS ---
Date/Time of Note Date/Time of Note DATE: 02/18/17 TIME: 17:00 Assessment/Plan Assessment/Plan Additional Assessment/Plan 1. Hyponatremia likely secondary to decompensated liver cirrhosis. 2. no heaptorenal syndrome 3. Acute kidney injury, likely secondary to prerenal azotemia in the setting of decompensated liver cirrhosis. 4. 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 5. History of recurrent ascites, status post last paracentesis done 3 weeks ago , 1.6 liters of fluid was removed. 6. Acute hyperkalemia, possibly secondary to Bactrim.- now resolved PLAN: US of abdomen did not show ascites, Gallstones within the distended gallbladder and mild gallbladder wall thickening.mild CBD dilatation- pt abdomen getting distended agani, need possibel US guided paracentesis - pt is not a candidate for Tolvaptan due to elevated LFTs on sodium chloride tablet 1 gram PO BID for hyponatremia- Na 126 , tertiary care center referral for liver transplant evaluation bicitra for metabolic acidosis No labs today to review will follow up Consultation Date/Type/Reason Admit Date/Time February 05, 2017 at 18:37 Initial Consult Date 02/06/17 Type of Consultation: Nephrology Referring Provider: CARL GRANT MD 24 HR Interval Summary Free Text/Dictation No labs today to review , BP stable, afebrile Exam/Review of Systems Vital Signs Vitals Vital Signs Date Time Temp Pulse Resp B/P Pulse Ox O2 Delivery O2 Flow Rate FiO2 02/18/17 16:05 91 02/18/17 15:20 98.2 18 107/62 98 Intake and Output 02/17/17 02/17/17 02/18/17 15:00 23:00 07:00 Intake Total 50.5 ml 770 ml Output Total 800 ml Balance 50.5 ml -30 ml Results Result Diagram: 02/17/17 0658 02/17/17 0658 Results 24 hrs Laboratory Tests Test 02/18/17 06:42 Lab Scanned Report BLOOD TRANSFUSION Medications Medications Current Medications Multivitamins Therapeutic (Theragran) 1 tab DAILY PO Last administered on 10:15; Admin Dose 1 TAB; Start 02/06/17 at 09:00 Thiamine HCl (Vitamin B1) 100 mg DAILY PO Last administered on 02/18/17 10:15; Admin Dose 100 MG; Start 02/06/17 at 09:00 Lactulose (Enulose) 20 gm Q4 PRN PO CONSTIPATION Last administered on 17:07; Admin Dose 20 GM; Start 02/06/17 at 00:00 Pantoprazole (Protonix Tab) 40 mg DAILY@06 PO Last administered on 02/18/17 05: 46; Admin Dose 40 MG; Start 02/06/17 at 06:00 Rifaximin (Xifaxan) 550 mg BID PO Last administered on 02/18/17 10:14; Admin Dose 550 MG; Start 02/06/17 at 09:00 Folic Acid (Folic Acid) 1 mg DAILY PO Last administered on 02/18/17 10:14; Admin Dose 1 MG; Start 02/06/17 at 09:00 Aripiprazole (Abilify) 1 mg HS PO Last administered on 02/15/17 20:17; Admin Dose 1 MG; Start 02/06/17 at 21:00 Morphine Sulfate (morphine) 2 mg Q3H PRN IV PAIN Last administered on 02/18/17 06:42; Admin Dose 2 MG; Start 02/06/17 at 01:00 Citric Acid/ Sodium Citrate (Bicitra) 30 ml TID PO Last administered on 10:14; Admin Dose 30 ML; Start 02/06/17 at 21:00 Propranolol HCl (Inderal) 10 mg BID PO ; Start 02/10/17 at 21:00; Status Future Hold Ondansetron HCl (Zofran Inj) 4 mg Q6H PRN IV NAUSEA AND/OR VOMITING Last administered on 02/16/17 18:01; Admin Dose 4 MG; Start 02/12/17 at 09:30 Sodium Chloride (Nacl) 1 gm BID PO Last administered on 02/18/17 10:15; Admin Dose 1 GM; Start 02/16/17 at 21:00 Furosemide (Lasix) 20 mg DAILY IV ; Start 02/18/17 at 09:00 IV Flush (NS 10 ml) 10 ml PRN PRN IV IV PROTOCOL; Start 02/18/17 at 16:00 ELLIOT PARRA MD Feb 18, 2017 17:01
--- NOTE | 2017-02-18 17:25 | CONS ---
Date/Time of Note Date/Time of Note DATE: 02/18/17 TIME: 17:24 Assessment/Plan Assessment/Plan Additional Assessment/Plan 1. Hyponatremia secondary to liver cirrhosis. 2. Acute kidney injury without heptorenal syndrome, likely secondary to prerenal azotemia in the setting of decompensated liver cirrhosis. 3. 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 History of recurrent ascites, status post last paracentesis done 3 weeks ago , 1.6 liters of fluid was removed. 5. Acute hyperkalemia, possibly secondary to Bactrim. 6. H/o ascites, status post a paracentesis 3 L of fluid was removed 7. Pedal edema 4+ 8. False-positive HIV PLAN: - EtOH cessation counseled - Tertiary care center referral for liver transplant evaluation if patient is not an active drinker - continue lactulose and rifaximen for hepatic encephalopathy - continue low dose lasix, titrate as tolerated by kidney function P.o. fluid restriction - add spironolactone if potassium normalizes. Consultation Date/Type/Reason Admit Date/Time February 05, 2017 at 18:37 Initial Consult Date 02/06/17 Type of Consultation: Nephrology Referring Provider: CARL GRANT MD 24 HR Interval Summary Constitutional: improved Exam/Review of Systems Vital Signs Vitals Vital Signs Date Time Temp Pulse Resp B/P Pulse Ox O2 Delivery O2 Flow Rate FiO2 02/18/17 16:05 91 02/18/17 15:20 98.2 18 107/62 98 Intake and Output 02/17/17 02/17/17 02/18/17 15:00 23:00 07:00 Intake Total 50.5 ml 770 ml Output Total 800 ml Balance 50.5 ml -30 ml Exam Constitutional: alert, oriented, well developed Psych: nl mood/affect, no complaints Head: atraumatic, normocephalic Eyes: EOMI, PERRL, nl conjunctiva, nl lids, nl sclera ENMT: nl external ears & nose, nl lips & teeth, nl nasal mucosa & septum Neck: non-tender, supple Respiratory: clear to auscultation, normal air movement Cardiovascular: nl pulses, regular rate and rhythm Gastrointestinal: nl liver, spleen, non-tender, soft Musculoskeletal: nl extremities to inspection, nl gait and stance Extremities: normal pulses Neurological: [employer] II-XII intact, nl mental status, nl speech, nl strength Skin: nl turgor, No rash or lesions Lymph: nl lymph nodes Results Result Diagram: 02/17/1758 02/17/17 0658 Results 24 hrs Laboratory Tests Test 02/18/17 06:42 Lab Scanned Report BLOOD TRANSFUSION Medications Medications Current Medications Multivitamins Therapeutic (Theragran) 1 tab DAILY PO Last administered on 10:15; Admin Dose 1 TAB; Start 02/06/17 at 09:00 Thiamine HCl (Vitamin B1) 100 mg DAILY PO Last administered on 02/18/17 10:15; Admin Dose 100 MG; Start 02/06/17 at 09:00 Lactulose (Enulose) 20 gm Q4 PRN PO CONSTIPATION Last administered on 17:07; Admin Dose 20 GM; Start 02/06/17 at 00:00 Pantoprazole (Protonix Tab) 40 mg DAILY@06 PO Last administered on 02/18/17 05: 46; Admin Dose 40 MG; Start 02/06/17 at 06:00 Rifaximin (Xifaxan) 550 mg BID PO Last administered on 02/18/17 10:14; Admin Dose 550 MG; Start 02/06/17 at 09:00 Folic Acid (Folic Acid) 1 mg DAILY PO Last administered on 02/18/17 10:14; Admin Dose 1 MG; Start 02/06/17 at 09:00 Aripiprazole (Abilify) 1 mg HS PO Last administered on 02/15/17 20:17; Admin Dose 1 MG; Start 02/06/17 at 21:00 Morphine Sulfate (morphine) 2 mg Q3H PRN IV PAIN Last administered on 02/18/17 06:42; Admin Dose 2 MG; Start 02/06/17 at 01:00 Citric Acid/ Sodium Citrate (Bicitra) 30 ml TID PO Last administered on 10:14; Admin Dose 30 ML; Start 02/06/17 at 21:00 Propranolol HCl (Inderal) 10 mg BID PO ; Start 02/10/17 at 21:00; Status Future Hold Ondansetron HCl (Zofran Inj) 4 mg Q6H PRN IV NAUSEA AND/OR VOMITING Last administered on 02/16/17 18:01; Admin Dose 4 MG; Start 02/12/17 at 09:30 Sodium Chloride (Nacl) 1 gm BID PO Last administered on 02/18/17 10:15; Admin Dose 1 GM; Start 02/16/17 at 21:00 Furosemide (Lasix) 20 mg DAILY IV ; Start 02/18/17 at 09:00 IV Flush (NS 10 ml) 10 ml PRN PRN IV IV PROTOCOL; Start 02/18/17 at 16:00 IGNACIA HERR MD Feb 18, 2017 17:25
[2017-02-18] MEDS: FUROSEMIDE 20 MG INJ IV SCH (18:21)
--- NOTE | 2017-02-18 18:21 | PN ---
Date/Time of Note Date/Time of Note DATE: 02/18/17 TIME: 18:21 Assessment/Plan VTE Prophylaxis VTE Prophylaxis Intervention: SCD's Lines/Catheters IV C[facility] Type (from [facility] PICC Line Central line still needed: Yes Urinary Cath still in place: No Assessment/Plan Chief Complaint/Hosp Course Patient s/p paracentesis yesterday, remains hemodynamically stable, complains of leg edema. ASSESSMENT AND PLAN: - Alcoholic liver cirrhosis. Dr. Zelaya is following in gastroenterology consultation. - Ascites secondary to liver cirrhosis. S/p paracentesis on 02/17. - Hepatic encephalopathy, resolved. Continue lactulose and rifaximin. - Acute kidney injury, rule out hepatorenal syndrome. Dr. Robles is following in nephrology consultation. - Human immunodeficiency virus positive status. Dr. Shelby sosa is following in infectious disease consultation. - Thrombocytopenia secondary to alcoholic liver cirrhosis. Dr. Cabral is following in hematology consultation. - Microcytic anemia. Status post transfusion, continue to monitor hemoglobin and hematocrit. - Coagulopathy, status post FFP and vitamin K. - Cholelithiasis. Status post MRCP. no evidence of obstruction of bile duct stone. - Hyponatremia secondary to liver cirrhosis. Further recommendations based on clinical course. Plan of care discussed with Dr. James. Problems: Exam/Review of Systems Vital Signs Vitals Vital Signs Date Time Temp Pulse Resp B/P Pulse Ox O2 Delivery O2 Flow Rate FiO2 02/18/17 16:05 91 02/18/17 15:20 98.2 18 107/62 98 Intake and Output 02/17/17 02/17/17 02/18/17 15:00 23:00 07:00 Intake Total 50.5 ml 770 ml Output Total 800 ml Balance 50.5 ml -30 ml Exam Constitutional: alert, oriented, other (Jaundiced) Psych: no complaints Eyes: icteric Neck: supple Respiratory: clear to auscultation Cardiovascular: nl pulses, regular rate and rhythm Gastrointestinal: distended, soft Musculoskeletal: nl extremities to inspection Extremities: normal pulses, edema Results Result Diagram: 02/17/1758 02/17/1758 Results 24 hrs Laboratory Tests Test 02/18/17 06:42 Lab Scanned Report BLOOD TRANSFUSION Medications Medications Current Medications Multivitamins Therapeutic (Theragran) 1 tab DAILY PO Last administered on t 10:15; Admin Dose 1 TAB; Start 02/06/17 at 09:00 Thiamine HCl (Vitamin B1) 100 mg DAILY PO Last administered on 02/18/17 10:15; Admin Dose 100 MG; Start 02/06/17 at 09:00 Lactulose (Enulose) 20 gm Q4 PRN PO CONSTIPATION Last administered on 17:07; Admin Dose 20 GM; Start 02/06/17 at 00:00 Pantoprazole (Protonix Tab) 40 mg DAILY@06 PO Last administered on 02/18/17 05: 46; Admin Dose 40 MG; Start 02/06/17 at 06:00 Rifaximin (Xifaxan) 550 mg BID PO Last administered on 02/18/17 10:14; Admin Dose 550 MG; Start 02/06/17 at 09:00 Folic Acid (Folic Acid) 1 mg DAILY PO Last administered on 02/18/17 10:14; Admin Dose 1 MG; Start 02/06/17 at 09:00 Aripiprazole (Abilify) 1 mg HS PO Last administered on 02/15/17 20:17; Admin Dose 1 MG; Start 02/06/17 at 21:00 Morphine Sulfate (morphine) 2 mg Q3H PRN IV PAIN Last administered on 02/18/17 06:42; Admin Dose 2 MG; Start 02/06/17 at 01:00 Citric Acid/ Sodium Citrate (Bicitra) 30 ml TID PO Last administered on 10:14; Admin Dose 30 ML; Start 02/06/17 at 21:00 Propranolol HCl (Inderal) 10 mg BID PO ; Start 02/10/17 at 21:00; Status Future Hold Ondansetron HCl (Zofran Inj) 4 mg Q6H PRN IV NAUSEA AND/OR VOMITING Last administered on 02/16/17 18:01; Admin Dose 4 MG; Start 02/12/17 at 09:30 Sodium Chloride (Nacl) 1 gm BID PO Last administered on 02/18/17 10:15; Admin Dose 1 GM; Start 02/16/17 at 21:00 Furosemide (Lasix) 20 mg DAILY IV ; Start 02/18/17 at 09:00 IV Flush (NS 10 ml) 10 ml PRN PRN IV IV PROTOCOL; Start 02/18/17 at 16:00 ALIVIA ALVAREZ Feb 18, 2017 18:21
[2017-02-18] MEDS: PHYTONADIONE 5 MG in DEXTROSE 5% 50 ML IVPB SCH (20:18)
[2017-02-18] MEDS: ARIPIPRAZOLE 2 MG TAB PO SCH (20:20)
[2017-02-19] VITALS (12 sets, daily range): BP systolic 88–125; BP diastolic 44–69; PULSE 69–89; RESP 17–20
[2017-02-19] MEDS: PANTOPRAZOLE (EC) 40 MG TAB PO SCH (05:11)
[2017-02-19] MEDS: morphine 2 MG INJ IV PRN ×3 (05:24→23:05)
[2017-02-19 07:33] LABS: ADD SCAN DIFF NO
[2017-02-19 07:36] LABS: ABNORMAL IP MESSAGE 1; BASOPHILS % 0.5 % (0.0-2.0); EOSINOPHILS # 0.2 10^3/ul (0.0-0.5); EOSINOPHILS % 2.7 % (0.0-7.0); HEMATOCRIT 20.8 % (42.0-52.0); HEMOGLOBIN 7.5 g/dl (14.0-18.0); LYMPHOCYTES # 0.7 10^3/ul (0.8-2.9); LYMPHOCYTES % 8.2 % (15.0-51.0); MEAN CORPUSCULAR HEMOGLOBIN 33.3 pg (29.0-33.0); MEAN CORPUSCULAR HGB CONC 36.1 g/dl (32.0-37.0); MEAN CORPUSCULAR VOLUME 92.4 fl (82.0-101.0); MEAN PLATELET VOLUME 12.4 fl (7.4-10.4); MONOCYTE # 0.9 10^3/ul (0.3-0.9); MONOCYTES % 10.1 % (0.0-11.0); NEUTROPHIL # 6.8 10^3/ul (1.6-7.5); NEUTROPHILS % 77.9 % (39.0-77.0); PLATELET COUNT 37 10^3/UL (140-415); RED BLOOD COUNT 2.25 10^6/ul (4.70-6.10); RED CELL DISTRIBUTION WIDTH 16.8 % (11.5-14.5); WHITE BLOOD COUNT 8.7 10^3/ul (4.8-10.8)
[2017-02-19 07:54] LABS: INR 3.43; PROTIME 35.1 Sec (12.2-14.2); PT RATIO 2.7
[2017-02-19 07:55] LABS: PARTIAL THROMBOPLASTIN TIME 53.3 Sec (25.0-35.0)
[2017-02-19 07:56] LABS: CALCIUM 8.6 mg/dl (8.4-10.2); CREATININE 1.34 mg/dl (0.61-1.24); POTASSIUM 3.2 mmol/L (3.5-5.1)
[2017-02-19] MEDS: FUROSEMIDE 20 MG INJ IV SCH (09:00)
[2017-02-19] MEDS: FOLIC ACID 1 MG TAB PO SCH (09:12)
[2017-02-19] MEDS: SODIUM CHLORIDE 1 GM TAB PO SCH ×2 (09:12→21:30)
[2017-02-19] MEDS: MULTIVITAMINS THERAPEUTIC TAB PO SCH (09:12)
[2017-02-19] MEDS: RIFAXIMIN 550 MG TAB PO SCH ×2 (09:12→21:30)
[2017-02-19] MEDS: CITRIC ACID/SODIUM CITRATE 15 ML CUP PO SCH ×3 (09:12→21:29)
[2017-02-19] MEDS: THIAMINE 100 MG TAB PO SCH (09:12)
--- NOTE | 2017-02-19 11:15 | CONS ---
Date/Time of Note Date/Time of Note DATE: 02/19/17 TIME: 11:13 Assessment/Plan Assessment/Plan Additional Assessment/Plan 1. Exertional chest pain, assess for acute coronary syndrome.-negative troponin x 3. EF >65% by echo this admit - stable, con't gentle fluid removal 2. Dyspnea on exertion, assess for congestive heart failure.-increased BNP - improved with therapy. 3. Abnormal electrocardiogram, assess for acute coronary syndrome.-negative troponin x 3/NL EF by echo >65% this admit 4. Liver cirrhosis- d/c EtOH now. 5. Nausea, vomiting. 6. ETOH abuse. 7. Polysubstance abuse. 8. Human immunodeficiency virus positivity. 9. Renal failure- renal team follows 10. Hyponatremia. 11. Coagulopathy. 12. Anemia. 13. Thrombocytopenia. 14.Hypotension-intermittent/labile 15.Hyponatremia Consultation Date/Type/Reason Admit Date/Time February 05, 2017 at 18:37 Initial Consult Date 02/07/17 Type of Consultation: Nephrology Referring Provider: CARL GRANT MD 24 HR Interval Summary Free Text/Dictation NO acute events - no CP, no ectopy on tele ROS: No fever, no chills, no nausea, no vomiting, no diarrhea/constipation No recent weight changes No chest pain, no PND, no orthopnea + SOB No dizziness, blurred vision No thirst, no heat or cold intolerance Exam/Review of Systems Vital Signs Vitals Vital Signs Date Time Temp Pulse Resp B/P Pulse Ox O2 Delivery O2 Flow Rate FiO2 02/19/17 08:08 69 02/19/17 07:23 97.8 17 96/44 100 Intake and Output 02/18/17 02/18/17 02/19/17 15:00 23:00 07:00 Intake Total 800 ml 600 ml Output Total 900 ml Balance 800 ml -300 ml Exam General: WN/WD/NAD, AOx 3 HEENT: Unicetric/atraumatic/EOMI (follow commands) NECK: JVD elevated 8 cm , no thyromegaly Lymph: no lymphadenopathy HEART: regular with no S3, II/ systolic murmur at apex LUNGS: Coarse sounds ABD: soft, NT, ND, +BS, fluid wave : Intact Neuro: non focal SKIN: chronic changes EXT: 2_+ edema Results Result Diagram: 02/19/17 0650 02/19/17 0650 Results 24 hrs Laboratory Tests Test 02/19/17 06:50 White Blood Count 8.7 Red Blood Count 2.25 L Hemoglobin 7.5 L Hematocrit 20.8 L Mean Corpuscular Volume 92.4 Mean Corpuscular Hemoglobin 33.3 H Mean Corpuscular Hemoglobin Concent 36.1 Red Cell Distribution Width 16.8 H Platelet Count 37 L Mean Platelet Volume 12.4 H Neutrophils % 77.9 H Lymphocytes % 8.2 L Monocytes % 10.1 Eosinophils % 2.7 Basophils % 0.5 Nucleated Red Blood Cells % 0.0 Neutrophils # 6.8 Lymphocytes # 0.7 L Monocytes # 0.9 Eosinophils # 0.2 Basophils # 0.0 Nucleated Red Blood Cells # 0.0 Prothrombin Time 35.1 #H Prothrombin Time Ratio 2.7 INR International Normalized Ratio 3.43 Activated Partial Thromboplast Time 53.3 H Sodium Level 131 L Potassium Level 3.2 L Chloride Level 100 Carbon Dioxide Level 22 Anion Gap 12 Blood Urea Nitrogen 51 H Creatinine 1.34 H Glucose Level 174 Calcium Level 8.6 Medications Medications Current Medications Multivitamins Therapeutic (Theragran) 1 tab DAILY PO Last administered on 09:12; Admin Dose 1 TAB; Start 02/06/17 at 09:00 Thiamine HCl (Vitamin B1) 100 mg DAILY PO Last administered on 02/19/17 09:12; Admin Dose 100 MG; Start 02/06/17 at 09:00 Lactulose (Enulose) 20 gm Q4 PRN PO CONSTIPATION Last administered on 17:07; Admin Dose 20 GM; Start 02/06/17 at 00:00 Pantoprazole (Protonix Tab) 40 mg DAILY@06 PO Last administered on 02/19/17 05: 11; Admin Dose 40 MG; Start 02/06/17 at 06:00 Rifaximin (Xifaxan) 550 mg BID PO Last administered on 02/19/17 09:12; Admin Dose 550 MG; Start 02/06/17 at 09:00 Folic Acid (Folic Acid) 1 mg DAILY PO Last administered on 02/19/17 09:12; Admin Dose 1 MG; Start 02/06/17 at 09:00 Aripiprazole (Abilify) 1 mg HS PO Last administered on 02/15/17 20:17; Admin Dose 1 MG; Start 02/06/17 at 21:00 Morphine Sulfate (morphine) 2 mg Q3H PRN IV PAIN Last administered on 02/19/17 05:24; Admin Dose 2 MG; Start 02/06/17 at 01:00 Citric Acid/ Sodium Citrate (Bicitra) 30 ml TID PO Last administered on 09:12; Admin Dose 30 ML; Start 02/06/17 at 21:00 Propranolol HCl (Inderal) 10 mg BID PO ; Start 02/10/17 at 21:00; Status Future Hold Ondansetron HCl (Zofran Inj) 4 mg Q6H PRN IV NAUSEA AND/OR VOMITING Last administered on 02/16/17 18:01; Admin Dose 4 MG; Start 02/12/17 at 09:30 Sodium Chloride (Nacl) 1 gm BID PO Last administered on 02/19/17 09:12; Admin Dose 1 GM; Start 02/16/17 at 21:00 Furosemide (Lasix) 20 mg DAILY IV Last administered on 02/18/17 18:21; Admin Dose 20 MG; Start 02/18/17 at 09:00 IV Flush (NS 10 ml) 10 ml PRN PRN IV IV PROTOCOL; Start 02/18/17 at 16:00 BATSHEVA VITAL MD Feb 19, 2017 11:15
--- NOTE | 2017-02-19 14:41 | CONS ---
Date/Time of Note Date/Time of Note DATE: 02/19/17 TIME: 14:38 Assessment/Plan Assessment/Plan Additional Assessment/Plan 1. Hyponatremia likely secondary to decompensated liver cirrhosis. 2. no heaptorenal syndrome 3. Acute kidney injury, likely secondary to prerenal azotemia in the setting of decompensated liver cirrhosis. 4. 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 5. History of recurrent ascites, status post last paracentesis done 3 weeks ago , 1.6 liters of fluid was removed. 6. Acute hyperkalemia, possibly secondary to Bactrim.- now resolved PLAN: - pt is not a candidate for Tolvaptan due to elevated LFTs on sodium chloride tablet 1 gram PO BID for hyponatremia- Na improved to 131 on IV lasix 20mg daily- K 3.2- will give KCl 20meQ IVx 1 , tertiary [facility] center referral for liver transplant evaluation bicitra for metabolic acidosis will follow up Consultation Date/Type/Reason Admit Date/Time February 05, 2017 at 18:37 Initial Consult Date 02/06/17 Type of Consultation: Nephrology Referring Provider: CARL GRANT MD 24 HR Interval Summary Free Text/Dictation na improved to 131, K 3.2 Exam/Review of Systems Vital Signs Vitals Vital Signs Date Time Temp Pulse Resp B/P Pulse Ox O2 Delivery O2 Flow Rate FiO2 02/19/17 12:02 85 02/19/17 11:37 97.4 17 125/69 99 Intake and Output 02/18/17 02/18/17 02/19/17 15:00 23:00 07:00 Intake Total 800 ml 600 ml Output Total 900 ml Balance 800 ml -300 ml Exam Constitutional: alert, oriented, well developed, jaunduced Head: normocephalic Eyes: icteric ENMT: nl external ears & nose Neck: non-tender Respiratory: clear to auscultation Cardiovascular: nl pulses Gastrointestinal: distended, ascites Musculoskeletal: nl extremities to inspection Extremities: normal pulses, bruises Neurological: nl mental status, nl speech Results Result Diagram: 02/19/17 0650 02/19/17 0650 Results 24 hrs Laboratory Tests Test 02/19/17 06:50 White Blood Count 8.7 Red Blood Count 2.25 L Hemoglobin 7.5 L Hematocrit 20.8 L Mean Corpuscular Volume 92.4 Mean Corpuscular Hemoglobin 33.3 H Mean Corpuscular Hemoglobin Concent 36.1 Red Cell Distribution Width 16.8 H Platelet Count 37 L Mean Platelet Volume 12.4 H Neutrophils % 77.9 H Lymphocytes % 8.2 L Monocytes % 10.1 Eosinophils % 2.7 Basophils % 0.5 Nucleated Red Blood Cells % 0.0 Neutrophils # 6.8 Lymphocytes # 0.7 L Monocytes # 0.9 Eosinophils # 0.2 Basophils # 0.0 Nucleated Red Blood Cells # 0.0 Prothrombin Time 35.1 #H Prothrombin Time Ratio 2.7 INR International Normalized Ratio 3.43 Activated Partial Thromboplast Time 53.3 H Sodium Level 131 L Potassium Level 3.2 L Chloride Level 100 Carbon Dioxide Level 22 Anion Gap 12 Blood Urea Nitrogen 51 H Creatinine 1.34 H Glucose Level 174 Calcium Level 8.6 Medications Medications Current Medications Multivitamins Therapeutic (Theragran) 1 tab DAILY PO Last administered on 09:12; Admin Dose 1 TAB; Start 02/06/17 at 09:00 Thiamine HCl (Vitamin B1) 100 mg DAILY PO Last administered on 02/19/17 09:12; Admin Dose 100 MG; Start 02/06/17 at 09:00 Lactulose (Enulose) 20 gm Q4 PRN PO CONSTIPATION Last administered on 17:07; Admin Dose 20 GM; Start 02/06/17 at 00:00 Pantoprazole (Protonix Tab) 40 mg DAILY@06 PO Last administered on 02/19/17 05: 11; Admin Dose 40 MG; Start 02/06/17 at 06:00 Rifaximin (Xifaxan) 550 mg BID PO Last administered on 02/19/17 09:12; Admin Dose 550 MG; Start 02/06/17 at 09:00 Folic Acid (Folic Acid) 1 mg DAILY PO Last administered on 02/19/17 09:12; Admin Dose 1 MG; Start 02/06/17 at 09:00 Aripiprazole (Abilify) 1 mg HS PO Last administered on 02/15/17 20:17; Admin Dose 1 MG; Start 02/06/17 at 21:00 Morphine Sulfate (morphine) 2 mg Q3H PRN IV PAIN Last administered on 02/19/17 05:24; Admin Dose 2 MG; Start 02/06/17 at 01:00 Citric Acid/ Sodium Citrate (Bicitra) 30 ml TID PO Last administered on 09:12; Admin Dose 30 ML; Start 02/06/17 at 21:00 Propranolol HCl (Inderal) 10 mg BID PO ; Start 02/10/17 at 21:00; Status Future Hold Ondansetron HCl (Zofran Inj) 4 mg Q6H PRN IV NAUSEA AND/OR VOMITING Last administered on 02/16/17 18:01; Admin Dose 4 MG; Start 02/12/17 at 09:30 Sodium Chloride (Nacl) 1 gm BID PO Last administered on 02/19/17 09:12; Admin Dose 1 GM; Start 02/16/17 at 21:00 Furosemide (Lasix) 20 mg DAILY IV Last administered on 02/18/17 18:21; Admin Dose 20 MG; Start 02/18/17 at 09:00 IV Flush (NS 10 ml) 10 ml PRN PRN IV IV PROTOCOL; Start 02/18/17 at 16:00 ELLIOT PARRA MD Feb 19, 2017 14:41
[2017-02-19] MEDS ORDERED: POTASSIUM CHLORIDE 20 MEQ in SOD CHLORIDE 0.9% 100 ML IVPB ONE (15:00)
--- NOTE | 2017-02-19 19:50 | CONS ---
Date/Time of Note Date/Time of Note DATE: 02/19/17 TIME: 19:47 Assessment/Plan Assessment/Plan Additional Assessment/Plan Additional Assessment/Plan 1. Hyponatremia secondary to liver cirrhosis. 2. Acute kidney injury without heptorenal syndrome, likely secondary to prerenal azotemia in the setting of decompensated liver cirrhosis. 3. 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 History of recurrent ascites, status post last paracentesis done 3 weeks ago , 1.6 liters of fluid was removed. 5. Acute hyperkalemia, possibly secondary to Bactrim. 6. H/o ascites, status post a paracentesis 3 L of fluid was removed 7. Pedal edema 4+ 8. False-positive HIV PLAN: - EtOH cessation counseled - [facility] referral for liver transplant evaluation if patient is not an active drinker - continue lactulose and rifaximen for hepatic encephalopathy - continue low dose lasix, titrate as tolerated by kidney function P.o. fluid restriction - Consultation Date/Type/Reason Admit Date/Time February 05, 2017 at 18:37 Initial Consult Date 02/06/17 Type of Consultation: Nephrology Referring Provider: CARL GRANT MD 24 HR Interval Summary Constitutional: improved Exam/Review of Systems Vital Signs Vitals Vital Signs Date Time Temp Pulse Resp B/P Pulse Ox O2 Delivery O2 Flow Rate FiO2 02/19/17 16:33 89 02/19/17 16:08 98.1 18 88/50 100 Intake and Output 02/18/17 02/18/17 02/19/17 15:00 23:00 07:00 Intake Total 800 ml 600 ml Output Total 900 ml Balance 800 ml -300 ml Exam Constitutional: alert, oriented, well developed Psych: nl mood/affect, no complaints Respiratory: clear to auscultation, normal air movement Cardiovascular: nl pulses, regular rate and rhythm Gastrointestinal: ascites, soft Extremities: pitting pedal edema Neurological: PEDIATRIC PSYCHIATRIST II-XII intact, nl mental status, nl speech, nl strength Results Result Diagram: 02/19/17 0650 02/19/17 0650 Results 24 hrs Laboratory Tests Test 02/19/17 06:50 White Blood Count 8.7 Red Blood Count 2.25 L Hemoglobin 7.5 L Hematocrit 20.8 L Mean Corpuscular Volume 92.4 Mean Corpuscular Hemoglobin 33.3 H Mean Corpuscular Hemoglobin Concent 36.1 Red Cell Distribution Width 16.8 H Platelet Count 37 L Mean Platelet Volume 12.4 H Neutrophils % 77.9 H Lymphocytes % 8.2 L Monocytes % 10.1 Eosinophils % 2.7 Basophils % 0.5 Nucleated Red Blood Cells % 0.0 Neutrophils # 6.8 Lymphocytes # 0.7 L Monocytes # 0.9 Eosinophils # 0.2 Basophils # 0.0 Nucleated Red Blood Cells # 0.0 Prothrombin Time 35.1 #H Prothrombin Time Ratio 2.7 INR International Normalized Ratio 3.43 Activated Partial Thromboplast Time 53.3 H Sodium Level 131 L Potassium Level 3.2 L Chloride Level 100 Carbon Dioxide Level 22 Anion Gap 12 Blood Urea Nitrogen 51 H Creatinine 1.34 H Glucose Level 174 Calcium Level 8.6 Medications Medications Current Medications Multivitamins Therapeutic (Theragran) 1 tab DAILY PO Last administered on 09:12; Admin Dose 1 TAB; Start 02/06/17 at 09:00 Thiamine HCl (Vitamin B1) 100 mg DAILY PO Last administered on 02/19/17 09:12; Admin Dose 100 MG; Start 02/06/17 at 09:00 Lactulose (Enulose) 20 gm Q4 PRN PO CONSTIPATION Last administered on 17:07; Admin Dose 20 GM; Start 02/06/17 at 00:00 Pantoprazole (Protonix Tab) 40 mg DAILY@06 PO Last administered on 02/19/17 05: 11; Admin Dose 40 MG; Start 02/06/17 at 06:00 Rifaximin (Xifaxan) 550 mg BID PO Last administered on 02/19/17 09:12; Admin Dose 550 MG; Start 02/06/17 at 09:00 Folic Acid (Folic Acid) 1 mg DAILY PO Last administered on 02/19/17 09:12; Admin Dose 1 MG; Start 02/06/17 at 09:00 Aripiprazole (Abilify) 1 mg HS PO Last administered on 02/15/17 20:17; Admin Dose 1 MG; Start 02/06/17 at 21:00 Morphine Sulfate (morphine) 2 mg Q3H PRN IV PAIN Last administered on 02/19/17 17:34; Admin Dose 2 MG; Start 02/06/17 at 01:00 Citric Acid/ Sodium Citrate (Bicitra) 30 ml TID PO Last administered on 16:28; Admin Dose 30 ML; Start 02/06/17 at 21:00 Propranolol HCl (Inderal) 10 mg BID PO ; Start 02/10/17 at 21:00; Status Future Hold Ondansetron HCl (Zofran Inj) 4 mg Q6H PRN IV NAUSEA AND/OR VOMITING Last administered on 02/16/17 18:01; Admin Dose 4 MG; Start 02/12/17 at 09:30 Sodium Chloride (Nacl) 1 gm BID PO Last administered on 02/19/17 09:12; Admin Dose 1 GM; Start 02/16/17 at 21:00 Furosemide (Lasix) 20 mg DAILY IV Last administered on 02/18/17 18:21; Admin Dose 20 MG; Start 02/18/17 at 09:00 IV Flush (NS 10 ml) 10 ml PRN PRN IV IV PROTOCOL; Start 02/18/17 at 16:00 IGNACIA HERR MD Feb 19, 2017 19:50
[2017-02-19] MEDS: ARIPIPRAZOLE 2 MG TAB PO SCH (21:30)
--- NOTE | 2017-02-19 23:43 | RADRPT ---
PROCEDURE: US Lower extremity Venous. CLINICAL INDICATION: Bilateral lower extremity edema TECHNIQUE: Multiple sonographic images of the bilateral lower extremity deep venous system was obt ained utilizing grayscale, color-flow, compressive sonography and doppler imaging with augmentation. The images were reviewed on a PACS workstation. COMPARISON: None. FINDINGS: There is normal compressibility and flow within the bilateral common femoral, femoral , posterior ti bial and popliteal veins. RPTAT: AA IMPRESSION: No sonographic evidence for deep venous thrombosis. .Moises Byrne MD, MD Date Time Electronically viewed and signed by .Moises Byrne MD, MD on 02/19/2017 23:43 .S/
[2017-02-20] VITALS (11 sets, daily range): BP systolic 85–122; BP diastolic 49–74; PULSE 69–85; RESP 17–20
[2017-02-20] MEDS: morphine 2 MG INJ IV PRN ×3 (02:18→21:24)
[2017-02-20] MEDS: PANTOPRAZOLE (EC) 40 MG TAB PO SCH (05:14)
[2017-02-20 08:04] LABS: CALCIUM 8.6 mg/dl (8.4-10.2); CREATININE 1.45 mg/dl (0.61-1.24); POTASSIUM 3.5 mmol/L (3.5-5.1)
[2017-02-20] MEDS: SODIUM CHLORIDE 1 GM TAB PO SCH ×2 (08:57→21:17)
[2017-02-20] MEDS: RIFAXIMIN 550 MG TAB PO SCH ×2 (08:57→21:17)
[2017-02-20] MEDS: MULTIVITAMINS THERAPEUTIC TAB PO SCH (08:57)
[2017-02-20] MEDS: FOLIC ACID 1 MG TAB PO SCH (08:58)
[2017-02-20] MEDS: CITRIC ACID/SODIUM CITRATE 15 ML CUP PO SCH ×3 (08:58→21:00)
[2017-02-20] MEDS: FUROSEMIDE 20 MG INJ IV SCH (09:03)
[2017-02-20 10:37] LABS: ADD SCAN DIFF NO
[2017-02-20] MEDS: THIAMINE 100 MG TAB PO SCH (10:38)
[2017-02-20 11:01] LABS: ABNORMAL IP MESSAGE 1; BASOPHIL # 0.1 10^3/ul (0.0-0.1); BASOPHILS % 0.5 % (0.0-2.0); EOSINOPHILS # 0.3 10^3/ul (0.0-0.5); EOSINOPHILS % 3.4 % (0.0-7.0); HEMATOCRIT 22.3 % (42.0-52.0); LYMPHOCYTES # 0.9 10^3/ul (0.8-2.9); LYMPHOCYTES % 9.2 % (15.0-51.0); MEAN CORPUSCULAR HEMOGLOBIN 33.5 pg (29.0-33.0); MEAN CORPUSCULAR HGB CONC 35.9 g/dl (32.0-37.0); MEAN CORPUSCULAR VOLUME 93.3 fl (82.0-101.0); MONOCYTES % 10.3 % (0.0-11.0); NEUTROPHIL # 7.7 10^3/ul (1.6-7.5); NEUTROPHILS % 76.1 % (39.0-77.0); PLATELET COUNT 35 10^3/UL (140-415); RED BLOOD COUNT 2.39 10^6/ul (4.70-6.10); RED CELL DISTRIBUTION WIDTH 17.2 % (11.5-14.5); WHITE BLOOD COUNT 10.1 10^3/ul (4.8-10.8)
--- NOTE | 2017-02-20 12:25 | CONS ---
Date/Time of Note Date/Time of Note DATE: 02/20/17 TIME: 12:21 Assessment/Plan Assessment/Plan Additional Assessment/Plan 1. Exertional chest pain, assess for acute coronary syndrome.-negative troponin x 3. EF >65% by echo this admit - stable, con't gentle fluid removal 2. Dyspnea on exertion, assess for congestive heart failure.-increased BNP - improved with therapy. Mostly liver related. 3. Abnormal electrocardiogram, assess for acute coronary syndrome.-negative troponin x 3/NL EF by echo >65% this admit 4. Liver cirrhosis- d/c EtOH now. Remove fluid as tolerated. 5. Nausea, vomiting. 6. ETOH abuse. 7. Polysubstance abuse. D/c advised. 8. Human immunodeficiency virus positivity. 9. Renal failure- renal team follows 10. Hyponatremia. 11. Coagulopathy. 12. Anemia. 13. Thrombocytopenia. 14.Hypotension-intermittent/labile 15.Hyponatremia Consultation Date/Type/Reason Admit Date/Time February 05, 2017 at 18:37 Initial Consult Date 02/07/17 Type of Consultation: Nephrology Referring Provider: CARL GRANT MD 24 HR Interval Summary Free Text/Dictation NO acute events - BP in good range - no CP - doubt ischemia - remove fluids as tolerated. ROS: No fever, no chills, no nausea, no vomiting, no diarrhea/constipation No recent weight changes No chest pain, no PND, no orthopnea + SOB/edema No dizziness, blurred vision No thirst, no heat or cold intolerance Exam/Review of Systems Vital Signs Vitals Vital Signs Date Time Temp Pulse Resp B/P Pulse Ox O2 Delivery O2 Flow Rate FiO2 02/20/17 12:05 97.6 76 17 118/55 100 Intake and Output 02/19/17 02/19/17 02/20/17 15:00 23:00 07:00 Intake Total 1400 ml 320 ml Output Total 450 ml Balance 1400 ml -130 ml Exam General: WN/WD/NAD, AOx 3 HEENT: Unicetric/atraumatic/EOMI (follow commands) NECK: JVD elevated, no thyromegaly Lymph: no lymphadenopathy HEART: regular with no S3, II/ systolic murmur at apex LUNGS: Coarse sounds ABD: soft, NT, ND, +BS : Intact Neuro: non focal SKIN: chronic changes EXT: 2+ edema Results Result Diagram: 02/20/17 0700 02/20/17 0700 Results 24 hrs Laboratory Tests Test 02/20/17 07:00 White Blood Count 10.1 Red Blood Count 2.39 L Hemoglobin 8.0 L Hematocrit 22.3 L Mean Corpuscular Volume 93.3 Mean Corpuscular Hemoglobin 33.5 H Mean Corpuscular Hemoglobin Concent 35.9 Red Cell Distribution Width 17.2 H Platelet Count 35 L Mean Platelet Volume 12.0 H Neutrophils % 76.1 Lymphocytes % 9.2 L Monocytes % 10.3 Eosinophils % 3.4 Basophils % 0.5 Nucleated Red Blood Cells % 0.0 Neutrophils # 7.7 H Lymphocytes # 0.9 Monocytes # 1.0 H Eosinophils # 0.3 Basophils # 0.1 Nucleated Red Blood Cells # 0.0 Sodium Level 131 L Potassium Level 3.5 Chloride Level 97 Carbon Dioxide Level 22 Anion Gap 16 Blood Urea Nitrogen 58 H Creatinine 1.45 H Glucose Level 155 Calcium Level 8.6 Medications Medications Current Medications Multivitamins Therapeutic (Theragran) 1 tab DAILY PO Last administered on 08:57; Admin Dose 1 TAB; Start 02/06/17 at 09:00 Thiamine HCl (Vitamin B1) 100 mg DAILY PO Last administered on 02/20/17 10:38; Admin Dose 100 MG; Start 02/06/17 at 09:00 Lactulose (Enulose) 20 gm Q4 PRN PO CONSTIPATION Last administered on 17:07; Admin Dose 20 GM; Start 02/06/17 at 00:00 Pantoprazole (Protonix Tab) 40 mg DAILY@06 PO Last administered on 02/20/17 05: 14; Admin Dose 40 MG; Start 02/06/17 at 06:00 Rifaximin (Xifaxan) 550 mg BID PO Last administered on 02/20/17 08:57; Admin Dose 550 MG; Start 02/06/17 at 09:00 Folic Acid (Folic Acid) 1 mg DAILY PO Last administered on 02/20/17 08:58; Admin Dose 1 MG; Start 02/06/17 at 09:00 Aripiprazole (Abilify) 1 mg HS PO Last administered on 02/19/17 21:30; Admin Dose 1 MG; Start 02/06/17 at 21:00 Morphine Sulfate (morphine) 2 mg Q3H PRN IV PAIN Last administered on 02/20/17 10:38; Admin Dose 2 MG; Start 02/06/17 at 01:00 Citric Acid/ Sodium Citrate (Bicitra) 30 ml TID PO Last administered on 08:58; Admin Dose 30 ML; Start 02/06/17 at 21:00 Propranolol HCl (Inderal) 10 mg BID PO ; Start 02/10/17 at 21:00; Status Future Hold Ondansetron HCl (Zofran Inj) 4 mg Q6H PRN IV NAUSEA AND/OR VOMITING Last administered on 02/16/17 18:01; Admin Dose 4 MG; Start 02/12/17 at 09:30 Sodium Chloride (Nacl) 1 gm BID PO Last administered on 02/20/17 08:57; Admin Dose 1 GM; Start 02/16/17 at 21:00 Furosemide (Lasix) 20 mg DAILY IV Last administered on 02/20/17 09:03; Admin Dose 20 MG; Start 02/18/17 at 09:00 IV Flush (NS 10 ml) 10 ml PRN PRN IV IV PROTOCOL; Start 02/18/17 at 16:00 BATSHEVA VITAL MD Feb 20, 2017 12:25
[2017-02-20] MEDS ORDERED: SOD CHLORIDE 0.9% 250 ML IV* ONE (13:03)
--- NOTE | 2017-02-20 13:19 | CONS ---
Date/Time of Note Date/Time of Note DATE: 02/20/17 TIME: 13:17 Assessment/Plan Assessment/Plan Chief Complaint/Hosp Course The patient is a 56-year-old male patient with a history of alcoholic liver cirrhosis, hemophilia, admitted with hepatorenal syndrome-nephrology. No active bleeding. Hematology consulted due to history of hemophilia and thrombocytopenia. # Thrombocytopenia, likely related to alcoholic liver cirrhosis and splenomegaly - platelet count 79 at [facility], now 30-60K. Continue to monitor, no evidence of bleeding - Transfuse < 10, < 50 if bleeding, otherwise monitor - HIV screen positive, however HIV Antibody 1/2 confirm negative, probably false positive per ID. 4th generation HIV testing returned as non-reactive. Appreciate ID recs. - Hepatitis panel negative, unlikely DIC as prolongation of caogs and low fibrinogen likely related to liver disease. No need to give cryoprecipitate unless patient bleeding. - Abdominal US showed 1. Coarsened hepatic echotexture and suggested liver surface nodularity and mild common bile duct dilatation. - MRI Abdomen 02/08/17 showed 1. Cirrhosis without definite evidence of focal hepatic lesion. 2. Small ascites and splenomegaly. 3. Cholelithiasis with irregular gallbladder wall thickening may be related to chronic cholecystitis however cannot rule out underlying gallbladder mass lesion. 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 Kehinde Jimenez who informed me that he does not have a history of hemophilia but rather simply coagulopathy due to liver disease. However, the patient states that he was diagnosed in his 20s with hemophilia, prior to liver disease, diagnosed by Dr. Hu (now ) in [place]. 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 Factor IX low at 28%, difficult to determine whether related to liver disease, but even if patient does have mild hemophilia B it would be mild. Factor VIII level elevated 22. 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 If needs repeat paracentesis , can give further FFP and factor IX, plus vitamin K as needed, however patient declines at this time as he states prior paracentesis was painful. . # Macrocytic anemia, MCV 101.6, Hgb 8.5 at [facility] - Hgb 6.5 with MCV 99.0 on 02/07/17, s/p 2 units pRBCs now stable in 8-10 range. Transfuse < 8. s/p 1 unit pRBCs 02/16/17 for Hgb 7.7, now Hgb 8.0. Will give 1 unit pRBCs for symptomatic anemia. - iron panel with Fe 109, TIBC low at 125, %87, ferritin 1250 consistent with anemia of chronic inflammation, B12/folate/TSH SNL, homocysteine elevated at 29.9; methylmalonic acid normal at 118. Therefore, patient may benefit from folate supplementation, as increased homocysteine is tied to increased cardiovascular risk and folate administration may lower homocysteine though unclear whether decreases cardiovascular risk. Patient noted to already be on folate. LDH elevated, retic count inappropriately low; haptoglobin < 15 (though likely low due to liver disease) Case management request for auth to be obtained for outpatient follow-up with me or Dr. Naya Dawson Problems: Consultation Date/Type/Reason Admit Date/Time February 05, 2017 at 18:37 Initial Consult Date 02/06/17 Type of Consultation: Hematology Referring Provider: CARL GRANT MD 24 HR Interval Summary Free Text/Dictation Patient feels "depressed" and has decreased energy. He states that he would not want another paracentesis as it was "too painful." He has increased edema and ascites. Exam/Review of Systems Vital Signs Vitals Vital Signs Date Time Temp Pulse Resp B/P Pulse Ox O2 Delivery O2 Flow Rate FiO2 02/20/17 12:05 97.6 76 17 118/55 100 Intake and Output 02/19/17 02/19/17 02/20/17 15:00 23:00 07:00 Intake Total 1400 ml 320 ml Output Total 450 ml Balance 1400 ml -130 ml Exam Constitutional: alert, oriented, well developed, jaunduced Head: normocephalic Eyes: icteric ENMT: nl external ears & nose Neck: non-tender Respiratory: clear to auscultation Cardiovascular: nl pulses Gastrointestinal: distended, ascites Musculoskeletal: +edema bilaterally Extremities: normal pulses, bruises Neurological: nl mental status, nl speech Results Result Diagram: 02/20/17 0700 02/20/17 0700 Results 24 hrs Laboratory Tests Test 02/20/17 07:00 White Blood Count 10.1 Red Blood Count 2.39 L Hemoglobin 8.0 L Hematocrit 22.3 L Mean Corpuscular Volume 93.3 Mean Corpuscular Hemoglobin 33.5 H Mean Corpuscular Hemoglobin Concent 35.9 Red Cell Distribution Width 17.2 H Platelet Count 35 L Mean Platelet Volume 12.0 H Neutrophils % 76.1 Lymphocytes % 9.2 L Monocytes % 10.3 Eosinophils % 3.4 Basophils % 0.5 Nucleated Red Blood Cells % 0.0 Neutrophils # 7.7 H Lymphocytes # 0.9 Monocytes # 1.0 H Eosinophils # 0.3 Basophils # 0.1 Nucleated Red Blood Cells # 0.0 Sodium Level 131 L Potassium Level 3.5 Chloride Level 97 Carbon Dioxide Level 22 Anion Gap 16 Blood Urea Nitrogen 58 H Creatinine 1.45 H Glucose Level 155 Calcium Level 8.6 Medications Medications Current Medications Multivitamins Therapeutic (Theragran) 1 tab DAILY PO Last administered on 08:57; Admin Dose 1 TAB; Start 02/06/17 at 09:00 Thiamine HCl (Vitamin B1) 100 mg DAILY PO Last administered on 02/20/17 10:38; Admin Dose 100 MG; Start 02/06/17 at 09:00 Lactulose (Enulose) 20 gm Q4 PRN PO CONSTIPATION Last administered on 17:07; Admin Dose 20 GM; Start 02/06/17 at 00:00 Pantoprazole (Protonix Tab) 40 mg DAILY@06 PO Last administered on 02/20/17 05: 14; Admin Dose 40 MG; Start 02/06/17 at 06:00 Rifaximin (Xifaxan) 550 mg BID PO Last administered on 02/20/17 08:57; Admin Dose 550 MG; Start 02/06/17 at 09:00 Folic Acid (Folic Acid) 1 mg DAILY PO Last administered on 02/20/17 08:58; Admin Dose 1 MG; Start 02/06/17 at 09:00 Aripiprazole (Abilify) 1 mg HS PO Last administered on 02/19/17 21:30; Admin Dose 1 MG; Start 02/06/17 at 21:00 Morphine Sulfate (morphine) 2 mg Q3H PRN IV PAIN Last administered on 02/20/17 10:38; Admin Dose 2 MG; Start 02/06/17 at 01:00 Citric Acid/ Sodium Citrate (Bicitra) 30 ml TID PO Last administered on 08:58; Admin Dose 30 ML; Start 02/06/17 at 21:00 Propranolol HCl (Inderal) 10 mg BID PO ; Start 02/10/17 at 21:00; Status Future Hold Ondansetron HCl (Zofran Inj) 4 mg Q6H PRN IV NAUSEA AND/OR VOMITING Last administered on 02/16/17 18:01; Admin Dose 4 MG; Start 02/12/17 at 09:30 Sodium Chloride (Nacl) 1 gm BID PO Last administered on 02/20/17 08:57; Admin Dose 1 GM; Start 02/16/17 at 21:00 Furosemide (Lasix) 20 mg DAILY IV Last administered on 02/20/17 09:03; Admin Dose 20 MG; Start 02/18/17 at 09:00 IV Flush 10 ml 10 ml PRN PRN IV IV PROTOCOL; Start 02/18/17 at 16:00 Sodium Chloride (NS) 250 ml @ 0 mls/hr Q0M ONCE IV* ; Start 02/20/17 at 13:03; Stop 02/20/17 at 13:04; Status UNV TO,ABRAM Ross MD Feb 20, 2017 13:19
--- NOTE | 2017-02-20 14:40 | CONS ---
Date/Time of Note Date/Time of Note DATE: 02/20/17 TIME: 14:27 Assessment/Plan Assessment/Plan Chief Complaint/Hosp Course - false positive initial HIV screen (positive by an initial screen, negative by a confirmatory antibody), HIV 1 viral load was undetectable twice, 4th generation HIV Ag/Ab combination test was unreactive. Pt denies a trip to or living in the parts of world endemic for HIV 2. 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 Pt has not received blood transfusions or blood products in the past - Hyponatremia likely secondary to cirrhosis - Acute on chronic anemia requiring blood transfusion - Coagulopathy due to liver disease - Thrombocytopenia - Hyperammonemia - AGATA - Portal hypertension - Cholelithiasis - Recurrent ascites s/p paracentesis ~4 weeks ago with 1.6 L removed, repeat paracentesis on 02/17/2017 s/p 3 L removal - S/p hyperkalemia - H/o alcoholism - H/o substance abuse recommendations: - if Pt agrees with another paracentesis, I recommend sending the ascetic fluid for cell count and diff, albumin, cytology, bacterial and fungal cultures - monitor off antibiotics at this time - monitor his mental status closely management d/w Pt, his RN Problems: Consultation Date/Type/Reason Admit Date/Time February 05, 2017 at 18:37 Initial Consult Date 02/07/17 Type of Consultation: ID Referring Provider: CARL GRANT MD 24 HR Interval Summary Constitutional: other (uncomfortable due to Pt's abdominal distension) Detailed Summary Eyes: other (icterius) ENT: no complaints Respiratory: no complaints Cardiovascular: no complaints Gastrointestinal: decreased appetite, other (distension), pain, No vomiting Genitourinary: No dysuria Musculoskeletal: no complaints Skin: bruising Lymphatic: lymphadema Exam/Review of Systems Vital Signs Vitals Vital Signs Date Time Temp Pulse Resp B/P Pulse Ox O2 Delivery O2 Flow Rate FiO2 02/20/17 12:05 97.6 76 17 118/55 100 Intake and Output 02/19/17 02/19/17 02/20/17 15:00 23:00 07:00 Intake Total 1400 ml 320 ml Output Total 450 ml Balance 1400 ml -130 ml Exam Constitutional: frail Psych: confusion, other (falling asleep in the middle) Head: atraumatic, normocephalic Eyes: icteric, nl lids Neck: supple Respiratory: clear to auscultation, normal air movement Cardiovascular: nl pulses, regular rate and rhythm Gastrointestinal: distended, firm, No mass Neurological: confused, lethargic, other (tremor/asterixis) Skin: ecchymosis, other (jaundiced) Results Result Diagram: 02/20/17 0700 02/20/17 0700 Results 24 hrs Laboratory Tests Test 02/20/17 07:00 White Blood Count 10.1 Red Blood Count 2.39 L Hemoglobin 8.0 L Hematocrit 22.3 L Mean Corpuscular Volume 93.3 Mean Corpuscular Hemoglobin 33.5 H Mean Corpuscular Hemoglobin Concent 35.9 Red Cell Distribution Width 17.2 H Platelet Count 35 L Mean Platelet Volume 12.0 H Neutrophils % 76.1 Lymphocytes % 9.2 L Monocytes % 10.3 Eosinophils % 3.4 Basophils % 0.5 Nucleated Red Blood Cells % 0.0 Neutrophils # 7.7 H Lymphocytes # 0.9 Monocytes # 1.0 H Eosinophils # 0.3 Basophils # 0.1 Nucleated Red Blood Cells # 0.0 Sodium Level 131 L Potassium Level 3.5 Chloride Level 97 Carbon Dioxide Level 22 Anion Gap 16 Blood Urea Nitrogen 58 H Creatinine 1.45 H Glucose Level 155 Calcium Level 8.6 Medications Medications Current Medications Multivitamins Therapeutic (Theragran) 1 tab DAILY PO Last administered on 08:57; Admin Dose 1 TAB; Start 02/06/17 at 09:00 Thiamine HCl (Vitamin B1) 100 mg DAILY PO Last administered on 02/20/17 10:38; Admin Dose 100 MG; Start 02/06/17 at 09:00 Lactulose (Enulose) 20 gm Q4 PRN PO CONSTIPATION Last administered on 17:07; Admin Dose 20 GM; Start 02/06/17 at 00:00 Pantoprazole (Protonix Tab) 40 mg DAILY@06 PO Last administered on 02/20/17 05: 14; Admin Dose 40 MG; Start 02/06/17 at 06:00 Rifaximin (Xifaxan) 550 mg BID PO Last administered on 02/20/17 08:57; Admin Dose 550 MG; Start 02/06/17 at 09:00 Folic Acid (Folic Acid) 1 mg DAILY PO Last administered on 02/20/17 08:58; Admin Dose 1 MG; Start 02/06/17 at 09:00 Aripiprazole (Abilify) 1 mg HS PO Last administered on 02/19/17 21:30; Admin Dose 1 MG; Start 02/06/17 at 21:00 Morphine Sulfate (morphine) 2 mg Q3H PRN IV PAIN Last administered on 02/20/17 10:38; Admin Dose 2 MG; Start 02/06/17 at 01:00 Citric Acid/ Sodium Citrate (Bicitra) 30 ml TID PO Last administered on 08:58; Admin Dose 30 ML; Start 02/06/17 at 21:00 Propranolol HCl (Inderal) 10 mg BID PO ; Start 02/10/17 at 21:00; Status Future Hold Ondansetron HCl (Zofran Inj) 4 mg Q6H PRN IV NAUSEA AND/OR VOMITING Last administered on 02/16/17 18:01; Admin Dose 4 MG; Start 02/12/17 at 09:30 Sodium Chloride (Nacl) 1 gm BID PO Last administered on 02/20/17 08:57; Admin Dose 1 GM; Start 02/16/17 at 21:00 Furosemide (Lasix) 20 mg DAILY IV Last administered on 02/20/17 09:03; Admin Dose 20 MG; Start 02/18/17 at 09:00 IV Flush (NS 10 ml) 10 ml PRN PRN IV IV PROTOCOL; Start 02/18/17 at 16:00 AKSHAT MCGRATH M.D. Feb 20, 2017 14:37
--- NOTE | 2017-02-20 15:33 | CONS ---
Date/Time of Note Date/Time of Note DATE: 02/20/17 TIME: 15:31 Assessment/Plan Assessment/Plan Additional Assessment/Plan 1. Hyponatremia likely secondary to decompensated liver cirrhosis. 2. no heaptorenal syndrome 3. Acute kidney injury, likely secondary to prerenal azotemia in the setting of decompensated liver cirrhosis. 4. 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 5. History of recurrent ascites, status post last paracentesis done 3 weeks ago , 1.6 liters of fluid was removed. 6. Acute hyperkalemia, possibly secondary to Bactrim.- now resolved PLAN: - pt is not a candidate for Tolvaptan due to elevated LFTs on sodium chloride tablet 1 gram PO BID for hyponatremia- Na improved to 131 on IV lasix 20mg daily, monitor K and replace as needed , tertiary [facility] referral for liver transplant evaluation bicitra for metabolic acidosis will follow up Consultation Date/Type/Reason Admit Date/Time February 05, 2017 at 18:37 Initial Consult Date 02/06/17 Type of Consultation: NEPHROLOGY Referring Provider: CARL GRANT MD 24 HR Interval Summary Free Text/Dictation s/p HD yesterday, doing ok, BP stable Exam/Review of Systems Vital Signs Vitals Vital Signs Date Time Temp Pulse Resp B/P Pulse Ox O2 Delivery O2 Flow Rate FiO2 02/20/17 12:05 97.6 76 17 118/55 100 Intake and Output 02/19/17 02/19/17 02/20/17 15:00 23:00 07:00 Intake Total 1400 ml 320 ml Output Total 450 ml Balance 1400 ml -130 ml Exam Constitutional: alert, oriented, well developed, jaunduced Head: normocephalic Eyes: icteric ENMT: nl external ears & nose Neck: non-tender Respiratory: clear to auscultation Cardiovascular: nl pulses Gastrointestinal: distended, ascites Musculoskeletal: nl extremities to inspection Extremities: normal pulses, bruises Neurological: nl mental status, nl speech Results Result Diagram: 02/20/17 0700 02/20/17 0700 Results 24 hrs Laboratory Tests Test 02/20/17 07:00 White Blood Count 10.1 Red Blood Count 2.39 L Hemoglobin 8.0 L Hematocrit 22.3 L Mean Corpuscular Volume 93.3 Mean Corpuscular Hemoglobin 33.5 H Mean Corpuscular Hemoglobin Concent 35.9 Red Cell Distribution Width 17.2 H Platelet Count 35 L Mean Platelet Volume 12.0 H Neutrophils % 76.1 Lymphocytes % 9.2 L Monocytes % 10.3 Eosinophils % 3.4 Basophils % 0.5 Nucleated Red Blood Cells % 0.0 Neutrophils # 7.7 H Lymphocytes # 0.9 Monocytes # 1.0 H Eosinophils # 0.3 Basophils # 0.1 Nucleated Red Blood Cells # 0.0 Sodium Level 131 L Potassium Level 3.5 Chloride Level 97 Carbon Dioxide Level 22 Anion Gap 16 Blood Urea Nitrogen 58 H Creatinine 1.45 H Glucose Level 155 Calcium Level 8.6 Medications Medications Current Medications Multivitamins Therapeutic (Theragran) 1 tab DAILY PO Last administered on 08:57; Admin Dose 1 TAB; Start 02/06/17 at 09:00 Thiamine HCl (Vitamin B1) 100 mg DAILY PO Last administered on 02/20/17 10:38; Admin Dose 100 MG; Start 02/06/17 at 09:00 Lactulose (Enulose) 20 gm Q4 PRN PO CONSTIPATION Last administered on 17:07; Admin Dose 20 GM; Start 02/06/17 at 00:00 Pantoprazole (Protonix Tab) 40 mg DAILY@06 PO Last administered on 02/20/17 05: 14; Admin Dose 40 MG; Start 02/06/17 at 06:00 Rifaximin (Xifaxan) 550 mg BID PO Last administered on 02/20/17 08:57; Admin Dose 550 MG; Start 02/06/17 at 09:00 Folic Acid (Folic Acid) 1 mg DAILY PO Last administered on 02/20/17 08:58; Admin Dose 1 MG; Start 02/06/17 at 09:00 Aripiprazole (Abilify) 1 mg HS PO Last administered on 02/19/17 21:30; Admin Dose 1 MG; Start 02/06/17 at 21:00 Morphine Sulfate (morphine) 2 mg Q3H PRN IV PAIN Last administered on 02/20/17 10:38; Admin Dose 2 MG; Start 02/06/17 at 01:00 Citric Acid/ Sodium Citrate (Bicitra) 30 ml TID PO Last administered on 08:58; Admin Dose 30 ML; Start 02/06/17 at 21:00 Propranolol HCl (Inderal) 10 mg BID PO ; Start 02/10/17 at 21:00; Status Future Hold Ondansetron HCl (Zofran Inj) 4 mg Q6H PRN IV NAUSEA AND/OR VOMITING Last administered on 02/16/17 18:01; Admin Dose 4 MG; Start 02/12/17 at 09:30 Sodium Chloride (Nacl) 1 gm BID PO Last administered on 02/20/17 08:57; Admin Dose 1 GM; Start 02/16/17 at 21:00 Furosemide (Lasix) 20 mg DAILY IV Last administered on 02/20/17 09:03; Admin Dose 20 MG; Start 02/18/17 at 09:00 IV Flush (NS 10 ml) 10 ml PRN PRN IV IV PROTOCOL; Start 02/18/17 at 16:00 ELLIOT PARRA MD Feb 20, 2017 15:33
--- NOTE | 2017-02-20 17:54 | PN ---
Date/Time of Note Date/Time of Note DATE: 02/20/17 TIME: 17:51 Assessment/Plan VTE Prophylaxis VTE Prophylaxis Intervention: other Lines/Catheters IV C[facility] Type (from [facility]): PICC Line Central line still needed: Yes Urinary Cath still in place: No Assessment/Plan Assessment/Plan - Alcoholic liver cirrhosis. Dr. Zelaya is following in gastroenterology consultation. - Ascites secondary to liver cirrhosis. S/p paracentesis on 02/17. - Hepatic encephalopathy, resolved. Continue lactulose and rifaximin. - BLE edema/pain - venous doppler- fu - Acute kidney injury, rule out hepatorenal syndrome. Dr. Robles is following in nephrology consultation. - Human immunodeficiency virus positive status. Dr. Shelby sosa is following in infectious disease consultation. - Thrombocytopenia secondary to alcoholic liver cirrhosis. Dr. Cabral is following in hematology consultation. - Microcytic anemia. Status post transfusion, continue to monitor hemoglobin and hematocrit. - Coagulopathy, status post FFP and vitamin K. - Cholelithiasis. Status post MRCP. no evidence of obstruction of bile duct stone. - Hyponatremia secondary to liver cirrhosis. Further recommendations based on clinical course. Plan of care discussed with Dr. James. Subjective 24 Hr Interval Summary Free Text/Dictation Late entry- 02/19/2017 sitting up in chair, c/o BLE pain/swelling- will do doppler us. dw staff. ENT: no complaints Respiratory: no complaints Cardiovascular: no complaints Gastrointestinal: other (water collection), pain Musculoskeletal: no complaints Neurologic: no complaints Exam/Review of Systems Vital Signs Vitals Vital Signs Date Time Temp Pulse Resp B/P Pulse Ox O2 Delivery O2 Flow Rate FiO2 02/20/17 16:12 97.3 76 17 85/49 100 Intake and Output 02/19/17 02/19/17 02/20/17 15:00 23:00 07:00 Intake Total 1400 ml 320 ml Output Total 450 ml Balance 1400 ml -130 ml Exam Constitutional: alert, well developed Eyes: EOMI, icteric Neck: non-tender, supple Respiratory: clear to auscultation, normal air movement Cardiovascular: nl pulses, regular rate and rhythm Gastrointestinal: ascites, soft Musculoskeletal: other Extremities: edema Neurological: nl mental status, nl speech Skin: other Lymph: nontender Results Result Diagram: 02/20/17 0700 02/20/17 0700 Results 24 hrs Laboratory Tests Test 02/20/17 07:00 White Blood Count 10.1 Red Blood Count 2.39 L Hemoglobin 8.0 L Hematocrit 22.3 L Mean Corpuscular Volume 93.3 Mean Corpuscular Hemoglobin 33.5 H Mean Corpuscular Hemoglobin Concent 35.9 Red Cell Distribution Width 17.2 H Platelet Count 35 L Mean Platelet Volume 12.0 H Neutrophils % 76.1 Lymphocytes % 9.2 L Monocytes % 10.3 Eosinophils % 3.4 Basophils % 0.5 Nucleated Red Blood Cells % 0.0 Neutrophils # 7.7 H Lymphocytes # 0.9 Monocytes # 1.0 H Eosinophils # 0.3 Basophils # 0.1 Nucleated Red Blood Cells # 0.0 Sodium Level 131 L Potassium Level 3.5 Chloride Level 97 Carbon Dioxide Level 22 Anion Gap 16 Blood Urea Nitrogen 58 H Creatinine 1.45 H Glucose Level 155 Calcium Level 8.6 Medications Medications Current Medications Multivitamins Therapeutic (Theragran) 1 tab DAILY PO Last administered on 08:57; Admin Dose 1 TAB; Start 02/06/17 at 09:00 Thiamine HCl (Vitamin B1) 100 mg DAILY PO Last administered on 02/20/17 10:38; Admin Dose 100 MG; Start 02/06/17 at 09:00 Lactulose (Enulose) 20 gm Q4 PRN PO CONSTIPATION Last administered on 17:07; Admin Dose 20 GM; Start 02/06/17 at 00:00 Pantoprazole (Protonix Tab) 40 mg DAILY@06 PO Last administered on 02/20/17 05: 14; Admin Dose 40 MG; Start 02/06/17 at 06:00 Rifaximin (Xifaxan) 550 mg BID PO Last administered on 02/20/17 08:57; Admin Dose 550 MG; Start 02/06/17 at 09:00 Folic Acid (Folic Acid) 1 mg DAILY PO Last administered on 02/20/17 08:58; Admin Dose 1 MG; Start 02/06/17 at 09:00 Aripiprazole (Abilify) 1 mg HS PO Last administered on 02/19/17 21:30; Admin Dose 1 MG; Start 02/06/17 at 21:00 Morphine Sulfate (morphine) 2 mg Q3H PRN IV PAIN Last administered on 02/20/17 10:38; Admin Dose 2 MG; Start 02/06/17 at 01:00 Citric Acid/ Sodium Citrate (Bicitra) 30 ml TID PO Last administered on 15:30; Admin Dose 30 ML; Start 02/06/17 at 21:00 Propranolol HCl (Inderal) 10 mg BID PO ; Start 02/10/17 at 21:00; Status Future Hold Ondansetron HCl (Zofran Inj) 4 mg Q6H PRN IV NAUSEA AND/OR VOMITING Last administered on 02/16/17 18:01; Admin Dose 4 MG; Start 02/12/17 at 09:30 Sodium Chloride (Nacl) 1 gm BID PO Last administered on 02/20/17 08:57; Admin Dose 1 GM; Start 02/16/17 at 21:00 Furosemide (Lasix) 20 mg DAILY IV Last administered on 02/20/17 09:03; Admin Dose 20 MG; Start 02/18/17 at 09:00 IV Flush (NS 10 ml) 10 ml PRN PRN IV IV PROTOCOL; Start 02/18/17 at 16:00 DAFNE LECHUGA Feb 20, 2017 17:54
--- NOTE | 2017-02-20 17:57 | PN ---
Date/Time of Note Date/Time of Note DATE: 02/20/17 TIME: 17:54 Assessment/Plan VTE Prophylaxis VTE Prophylaxis Intervention: other Lines/Catheters IV Catheter Type (from Nrs): PICC Line Central line still needed: Yes Urinary Cath still in place: No Reason Cath still needed: urinary retention Assessment/Plan Assessment/Plan - BLE pain swelling - Doppler Negative - Elevate extremities at all times - Alcoholic liver cirrhosis. Dr. Zelaya is following in gastroenterology consultation. - Ascites secondary to liver cirrhosis. S/p paracentesis on 02/17. - Hepatic encephalopathy, resolved. Continue lactulose and rifaximin. - Acute kidney injury, rule out hepatorenal syndrome. Dr. Robles is following in nephrology consultation. - Human immunodeficiency virus positive status. Dr. Shelby sosa is following in infectious disease consultation. - Thrombocytopenia secondary to alcoholic liver cirrhosis. Dr. Cabral is following in hematology consultation. - Microcytic anemia. Status post transfusion, continue to monitor hemoglobin and hematocrit. - Coagulopathy, status post FFP and vitamin K. - Cholelithiasis. Status post MRCP. no evidence of obstruction of bile duct stone. - Hyponatremia secondary to liver cirrhosis. Further recommendations based on clinical course. Plan of care discussed with Dr. James. Subjective 24 Hr Interval Summary Free Text/Dictation Resting in bed, c/o abdominal pain , denies any chest pain, nvd. dw staff/ patient. no new events reported ENT: no complaints Respiratory: no complaints Cardiovascular: no complaints Gastrointestinal: pain Genitourinary: no complaints Exam/Review of Systems Vital Signs Vitals Vital Signs Date Time Temp Pulse Resp B/P Pulse Ox O2 Delivery O2 Flow Rate FiO2 02/20/17 16:12 97.3 76 17 85/49 100 Intake and Output 02/19/17 02/19/17 02/20/17 15:00 23:00 07:00 Intake Total 1400 ml 320 ml Output Total 450 ml Balance 1400 ml -130 ml Exam Constitutional: alert, well developed Neck: non-tender, supple Respiratory: clear to auscultation, normal air movement Cardiovascular: nl pulses, regular rate and rhythm Gastrointestinal: ascites, soft Musculoskeletal: nl extremities to inspection Extremities: edema Neurological: nl speech Lymph: nontender Results Result Diagram: 02/20/17 0700 02/20/17 0700 Results 24 hrs Laboratory Tests Test 02/20/17 07:00 White Blood Count 10.1 Red Blood Count 2.39 L Hemoglobin 8.0 L Hematocrit 22.3 L Mean Corpuscular Volume 93.3 Mean Corpuscular Hemoglobin 33.5 H Mean Corpuscular Hemoglobin Concent 35.9 Red Cell Distribution Width 17.2 H Platelet Count 35 L Mean Platelet Volume 12.0 H Neutrophils % 76.1 Lymphocytes % 9.2 L Monocytes % 10.3 Eosinophils % 3.4 Basophils % 0.5 Nucleated Red Blood Cells % 0.0 Neutrophils # 7.7 H Lymphocytes # 0.9 Monocytes # 1.0 H Eosinophils # 0.3 Basophils # 0.1 Nucleated Red Blood Cells # 0.0 Sodium Level 131 L Potassium Level 3.5 Chloride Level 97 Carbon Dioxide Level 22 Anion Gap 16 Blood Urea Nitrogen 58 H Creatinine 1.45 H Glucose Level 155 Calcium Level 8.6 Medications Medications Current Medications Multivitamins Therapeutic (Theragran) 1 tab DAILY PO Last administered on 08:57; Admin Dose 1 TAB; Start 02/06/17 at 09:00 Thiamine HCl (Vitamin B1) 100 mg DAILY PO Last administered on 02/20/17 10:38; Admin Dose 100 MG; Start 02/06/17 at 09:00 Lactulose (Enulose) 20 gm Q4 PRN PO CONSTIPATION Last administered on 17:07; Admin Dose 20 GM; Start 02/06/17 at 00:00 Pantoprazole (Protonix Tab) 40 mg DAILY@06 PO Last administered on 02/20/17 05: 14; Admin Dose 40 MG; Start 02/06/17 at 06:00 Rifaximin (Xifaxan) 550 mg BID PO Last administered on 02/20/17 08:57; Admin Dose 550 MG; Start 02/06/17 at 09:00 Folic Acid (Folic Acid) 1 mg DAILY PO Last administered on 02/20/17 08:58; Admin Dose 1 MG; Start 02/06/17 at 09:00 Aripiprazole (Abilify) 1 mg HS PO Last administered on 02/19/17 21:30; Admin Dose 1 MG; Start 02/06/17 at 21:00 Morphine Sulfate (morphine) 2 mg Q3H PRN IV PAIN Last administered on 02/20/17 10:38; Admin Dose 2 MG; Start 02/06/17 at 01:00 Citric Acid/ Sodium Citrate (Bicitra) 30 ml TID PO Last administered on 15:30; Admin Dose 30 ML; Start 02/06/17 at 21:00 Propranolol HCl (Inderal) 10 mg BID PO ; Start 02/10/17 at 21:00; Status Future Hold Ondansetron HCl (Zofran Inj) 4 mg Q6H PRN IV NAUSEA AND/OR VOMITING Last administered on 02/16/17 18:01; Admin Dose 4 MG; Start 02/12/17 at 09:30 Sodium Chloride (Nacl) 1 gm BID PO Last administered on 02/20/17 08:57; Admin Dose 1 GM; Start 02/16/17 at 21:00 Furosemide (Lasix) 20 mg DAILY IV Last administered on 02/20/17 09:03; Admin Dose 20 MG; Start 02/18/17 at 09:00 IV Flush (NS 10 ml) 10 ml PRN PRN IV IV PROTOCOL; Start 02/18/17 at 16:00 DAFNE LECHUGA Feb 20, 2017 17:57
[2017-02-20] MEDS: ARIPIPRAZOLE 2 MG TAB PO SCH (21:17)
--- NOTE | 2017-02-20 21:37 | CONS ---
Date/Time of Note Date/Time of Note DATE: 02/20/17 TIME: 21:37 Assessment/Plan Assessment/Plan Additional Assessment/Plan Additional Assessment/Plan Additional Assessment/Plan 1. Hyponatremia secondary to liver cirrhosis. 2. Acute kidney injury without heptorenal syndrome, likely secondary to prerenal azotemia in the setting of decompensated liver cirrhosis. 3. 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 History of recurrent ascites, status post last paracentesis done 3 weeks ago , 1.6 liters of fluid was removed. 5. Acute hyperkalemia, possibly secondary to Bactrim. 6. H/o ascites, status post a paracentesis 3 L of fluid was removed 7. Pedal edema 4+ 8. False-positive HIV PLAN: - EtOH cessation counseled - Tertiary [facility] referral for liver transplant evaluation if patient is not an active drinker - continue lactulose and rifaximen for hepatic encephalopathy - continue low dose lasix, titrate as tolerated by kidney function P.o. fluid restriction Consultation Date/Type/Reason Admit Date/Time February 05, 2017 at 18:37 Initial Consult Date 02/06/17 Type of Consultation: NEPHROLOGY Referring Provider: CARL GRANT MD 24 HR Interval Summary Constitutional: improved Exam/Review of Systems Vital Signs Vitals Vital Signs Date Time Temp Pulse Resp B/P Pulse Ox O2 Delivery O2 Flow Rate FiO2 02/20/17 20:12 97.5 78 20 97/64 100 Intake and Output 02/19/17 02/19/17 02/20/17 15:00 23:00 07:00 Intake Total 1400 ml 320 ml Output Total 450 ml Balance 1400 ml -130 ml Exam Constitutional: alert, oriented, well developed Psych: nl mood/affect, no complaints Head: atraumatic, normocephalic Eyes: EOMI, PERRL, nl conjunctiva, nl lids, nl sclera ENMT: nl external ears & nose, nl lips & teeth, nl nasal mucosa & septum Neck: non-tender, supple Respiratory: clear to auscultation, normal air movement Cardiovascular: nl pulses, regular rate and rhythm Gastrointestinal: nl liver, spleen, non-tender, soft Musculoskeletal: nl extremities to inspection, nl gait and stance Extremities: normal pulses Neurological: STORY WRITER II-XII intact, nl mental status, nl speech, nl strength Skin: nl turgor, No rash or lesions Lymph: nl lymph nodes Results Result Diagram: 02/20/17 0700 02/20/17 0700 Results 24 hrs Laboratory Tests Test 02/20/17 07:00 White Blood Count 10.1 Red Blood Count 2.39 L Hemoglobin 8.0 L Hematocrit 22.3 L Mean Corpuscular Volume 93.3 Mean Corpuscular Hemoglobin 33.5 H Mean Corpuscular Hemoglobin Concent 35.9 Red Cell Distribution Width 17.2 H Platelet Count 35 L Mean Platelet Volume 12.0 H Neutrophils % 76.1 Lymphocytes % 9.2 L Monocytes % 10.3 Eosinophils % 3.4 Basophils % 0.5 Nucleated Red Blood Cells % 0.0 Neutrophils # 7.7 H Lymphocytes # 0.9 Monocytes # 1.0 H Eosinophils # 0.3 Basophils # 0.1 Nucleated Red Blood Cells # 0.0 Sodium Level 131 L Potassium Level 3.5 Chloride Level 97 Carbon Dioxide Level 22 Anion Gap 16 Blood Urea Nitrogen 58 H Creatinine 1.45 H Glucose Level 155 Calcium Level 8.6 Medications Medications Current Medications Multivitamins Therapeutic (Theragran) 1 tab DAILY PO Last administered on 08:57; Admin Dose 1 TAB; Start 02/06/17 at 09:00 Thiamine HCl (Vitamin B1) 100 mg DAILY PO Last administered on 02/20/17 10:38; Admin Dose 100 MG; Start 02/06/17 at 09:00 Lactulose (Enulose) 20 gm Q4 PRN PO CONSTIPATION Last administered on 17:07; Admin Dose 20 GM; Start 02/06/17 at 00:00 Pantoprazole (Protonix Tab) 40 mg DAILY@06 PO Last administered on 02/20/17 05: 14; Admin Dose 40 MG; Start 02/06/17 at 06:00 Rifaximin (Xifaxan) 550 mg BID PO Last administered on 02/20/17 21:17; Admin Dose 550 MG; Start 02/06/17 at 09:00 Folic Acid (Folic Acid) 1 mg DAILY PO Last administered on 02/20/17 08:58; Admin Dose 1 MG; Start 02/06/17 at 09:00 Aripiprazole (Abilify) 1 mg HS PO Last administered on 02/20/17 21:17; Admin Dose 1 MG; Start 02/06/17 at 21:00 Morphine Sulfate (morphine) 2 mg Q3H PRN IV PAIN Last administered on 02/20/17 21:24; Admin Dose 2 MG; Start 02/06/17 at 01:00 Citric Acid/ Sodium Citrate (Bicitra) 30 ml TID PO Last administered on 15:30; Admin Dose 30 ML; Start 02/06/17 at 21:00 Propranolol HCl (Inderal) 10 mg BID PO ; Start 02/10/17 at 21:00; Status Future Hold Ondansetron HCl (Zofran Inj) 4 mg Q6H PRN IV NAUSEA AND/OR VOMITING Last administered on 02/16/17 18:01; Admin Dose 4 MG; Start 02/12/17 at 09:30 Sodium Chloride (Nacl) 1 gm BID PO Last administered on 02/20/17 21:17; Admin Dose 1 GM; Start 02/16/17 at 21:00 Furosemide (Lasix) 20 mg DAILY IV Last administered on 02/20/17 09:03; Admin Dose 20 MG; Start 02/18/17 at 09:00 IV Flush (NS 10 ml) 10 ml PRN PRN IV IV PROTOCOL; Start 02/18/17 at 16:00 IGNACIA HERR MD Feb 20, 2017 21:37
[2017-02-21 00:19] VITALS: BP 109/70; RESP 18
[2017-02-21] MEDS: morphine 2 MG INJ IV PRN ×3 (03:31→21:19)
[2017-02-21 04:21] VITALS: BP 96/52; RESP 18
[2017-02-21] MEDS: PANTOPRAZOLE (EC) 40 MG TAB PO SCH (06:07)
[2017-02-21 07:38] VITALS: BP 116/72; RESP 18
[2017-02-21 08:01] LABS: ADD SCAN DIFF NO
[2017-02-21 08:08] LABS: ABNORMAL IP MESSAGE 1; BASOPHILS % 0.4 % (0.0-2.0); EOSINOPHILS # 0.3 10^3/ul (0.0-0.5); EOSINOPHILS % 2.4 % (0.0-7.0); HEMOGLOBIN 8.7 g/dl (14.0-18.0); LYMPHOCYTES # 1.1 10^3/ul (0.8-2.9); LYMPHOCYTES % 9.7 % (15.0-51.0); MEAN CORPUSCULAR HEMOGLOBIN 32.5 pg (29.0-33.0); MEAN CORPUSCULAR HGB CONC 36.3 g/dl (32.0-37.0); MEAN CORPUSCULAR VOLUME 89.6 fl (82.0-101.0); MEAN PLATELET VOLUME 12.4 fl (7.4-10.4); MONOCYTES % 8.7 % (0.0-11.0); NEUTROPHIL # 8.6 10^3/ul (1.6-7.5); PLATELET COUNT 33 10^3/UL (140-415); RED BLOOD COUNT 2.68 10^6/ul (4.70-6.10); RED CELL DISTRIBUTION WIDTH 18.2 % (11.5-14.5); WHITE BLOOD COUNT 11.1 10^3/ul (4.8-10.8)
[2017-02-21 08:33] LABS: CALCIUM 8.7 mg/dl (8.4-10.2); CREATININE 1.49 mg/dl (0.61-1.24); POTASSIUM 3.3 mmol/L (3.5-5.1)
--- NOTE | 2017-02-21 09:07 | CONS ---
Date/Time of Note Date/Time of Note DATE: 02/21/17 TIME: 09:05 Assessment/Plan Assessment/Plan Additional Assessment/Plan 1. Hyponatremia likely secondary to decompensated liver cirrhosis. 2. no heaptorenal syndrome 3. Acute kidney injury, likely secondary to prerenal azotemia in the setting of decompensated liver cirrhosis. 4. 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 5. History of recurrent ascites, status post last paracentesis done 3 weeks ago , 1.6 liters of fluid was removed. 6. Acute hyperkalemia, possibly secondary to Bactrim.- now resolved PLAN: - pt is not a candidate for Tolvaptan due to elevated LFTs Na dropped to 129- increase Na chloride tablet to 1 gram PO TID on IV lasix 20mg daily, KCl 20mEQ IV x 1 dose now , tertiary [facility] referral for liver transplant evaluation bicitra for metabolic acidosis will follow up Consultation Date/Type/Reason Admit Date/Time February 05, 2017 at 18:37 Initial Consult Date 02/06/17 Type of Consultation: NEPHROLOGY Referring Provider: CARL GRANT MD 24 HR Interval Summary Free Text/Dictation Na dropped to 129,K low, Pt stable, BP stable Exam/Review of Systems Vital Signs Vitals Vital Signs Date Time Temp Pulse Resp B/P Pulse Ox O2 Delivery O2 Flow Rate FiO2 02/21/17 07:38 98.1 72 18 116/72 100 Intake and Output 02/20/17 02/20/17 02/21/17 15:00 23:00 07:00 Intake Total 1250 ml Balance 1250 ml Exam Constitutional: alert, oriented, well developed, jaunduced Respiratory: clear to auscultation Cardiovascular: nl pulses Gastrointestinal: distended, ascites Musculoskeletal: nl extremities to inspection Extremities: normal pulses, bruises Neurological: nl mental status, nl speech Results Result Diagram: 02/21/17 0627 02/21/17 0627 Results 24 hrs Laboratory Tests Test 02/21/17 05:08 02/21/17 06:27 Lab Scanned Report BLOOD TRANSFUSION White Blood Count 11.1 H Red Blood Count 2.68 L Hemoglobin 8.7 L Hematocrit 24.0 L Mean Corpuscular Volume 89.6 Mean Corpuscular Hemoglobin 32.5 Mean Corpuscular Hemoglobin Concent 36.3 Red Cell Distribution Width 18.2 H Platelet Count 33 L Mean Platelet Volume 12.4 H Neutrophils % 78.0 H Lymphocytes % 9.7 L Monocytes % 8.7 Eosinophils % 2.4 Basophils % 0.4 Nucleated Red Blood Cells % 0.0 Neutrophils # 8.6 H Lymphocytes # 1.1 Monocytes # 1.0 H Eosinophils # 0.3 Basophils # 0.0 Nucleated Red Blood Cells # 0.0 Sodium Level 129 L Potassium Level 3.3 L Chloride Level 96 L Carbon Dioxide Level 21 Anion Gap 15 Blood Urea Nitrogen 58 H Creatinine 1.49 H Glucose Level 104 # Calcium Level 8.7 Medications Medications Current Medications Multivitamins Therapeutic (Theragran) 1 tab DAILY PO Last administered on 08:57; Admin Dose 1 TAB; Start 02/06/17 at 09:00 Thiamine HCl (Vitamin B1) 100 mg DAILY PO Last administered on 02/20/17 10:38; Admin Dose 100 MG; Start 02/06/17 at 09:00 Lactulose (Enulose) 20 gm Q4 PRN PO CONSTIPATION Last administered on 17:07; Admin Dose 20 GM; Start 02/06/17 at 00:00 Pantoprazole (Protonix Tab) 40 mg DAILY@06 PO Last administered on 02/21/17 06: 07; Admin Dose 40 MG; Start 02/06/17 at 06:00 Rifaximin (Xifaxan) 550 mg BID PO Last administered on 02/20/17 21:17; Admin Dose 550 MG; Start 02/06/17 at 09:00 Folic Acid (Folic Acid) 1 mg DAILY PO Last administered on 02/20/17 08:58; Admin Dose 1 MG; Start 02/06/17 at 09:00 Aripiprazole (Abilify) 1 mg HS PO Last administered on 02/20/17 21:17; Admin Dose 1 MG; Start 02/06/17 at 21:00 Morphine Sulfate (morphine) 2 mg Q3H PRN IV PAIN Last administered on 02/21/17 03:31; Admin Dose 2 MG; Start 02/06/17 at 01:00 Citric Acid/ Sodium Citrate (Bicitra) 30 ml TID PO Last administered on 15:30; Admin Dose 30 ML; Start 02/06/17 at 21:00 Propranolol HCl (Inderal) 10 mg BID PO ; Start 02/10/17 at 21:00; Status Future Hold Ondansetron HCl (Zofran Inj) 4 mg Q6H PRN IV NAUSEA AND/OR VOMITING Last administered on 02/16/17 18:01; Admin Dose 4 MG; Start 02/12/17 at 09:30 Sodium Chloride (Nacl) 1 gm BID PO Last administered on 02/20/17 21:17; Admin Dose 1 GM; Start 02/16/17 at 21:00 Furosemide (Lasix) 20 mg DAILY IV Last administered on 02/20/17 09:03; Admin Dose 20 MG; Start 02/18/17 at 09:00 IV Flush (NS 10 ml) 10 ml PRN PRN IV IV PROTOCOL; Start 02/18/17 at 16:00 ELLIOT PARRA MD Feb 21, 2017 09:07
[2017-02-21] MEDS: FOLIC ACID 1 MG TAB PO SCH (09:23)
[2017-02-21] MEDS: THIAMINE 100 MG TAB PO SCH (09:23)
[2017-02-21] MEDS: SODIUM CHLORIDE 1 GM TAB PO SCH ×2 (09:23→21:19)
[2017-02-21] MEDS: CITRIC ACID/SODIUM CITRATE 15 ML CUP PO SCH ×3 (09:23→21:00)
[2017-02-21] MEDS: MULTIVITAMINS THERAPEUTIC TAB PO SCH (09:23)
[2017-02-21] MEDS: RIFAXIMIN 550 MG TAB PO SCH ×2 (09:24→21:19)
[2017-02-21] MEDS: FUROSEMIDE 20 MG INJ IV SCH (09:24)
[2017-02-21] MEDS ORDERED: POTASSIUM CHLORIDE 20 MEQ in SOD CHLORIDE 0.9% 100 ML IVPB ONE (10:00)
--- NOTE | 2017-02-21 10:37 | CONS ---
Date/Time of Note Date/Time of Note DATE: 02/21/17 TIME: 10:35 Assessment/Plan Assessment/Plan Chief Complaint/Hosp Course The patient is a 56-year-old male patient with a history of alcoholic liver cirrhosis, hemophilia, admitted with hepatorenal syndrome-nephrology. No active bleeding. Hematology consulted due to history of hemophilia and thrombocytopenia. # Thrombocytopenia, likely related to alcoholic liver cirrhosis and splenomegaly - platelet count 79 at [place], now 30-60K. Continue to monitor, no evidence of bleeding. Unclear why platelet count decreasing, patient does not appear septic , no obvious offending medications. - Transfuse < 10, < 50 if bleeding, otherwise monitor - HIV screen positive, however HIV Antibody 1/2 confirm negative, probably false positive per ID. 4th generation HIV testing returned as non-reactive. Appreciate ID recs. - Hepatitis panel negative, unlikely DIC as prolongation of caogs and low fibrinogen likely related to liver disease. No need to give cryoprecipitate unless patient bleeding. - Abdominal US showed 1. Coarsened hepatic echotexture and suggested liver surface nodularity and mild common bile duct dilatation. - MRI Abdomen 02/08/17 showed 1. Cirrhosis without definite evidence of focal hepatic lesion. 2. Small ascites and splenomegaly. 3. Cholelithiasis with irregular gallbladder wall thickening may be related to chronic cholecystitis however cannot rule out underlying gallbladder mass lesion. 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 Kehinde Jimenez who informed me that he does not have a history of hemophilia but rather simply coagulopathy due to liver disease. However, the patient states that he was diagnosed in his 20s with hemophilia, prior to liver disease, diagnosed by Dr. Hu (now ) in [place]. 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 Factor IX low at 28%, difficult to determine whether related to liver disease, but even if patient does have mild hemophilia B it would be mild. Factor VIII level elevated 22. 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 If needs repeat paracentesis , can give further FFP and factor IX, plus vitamin K as needed, however patient declines at this time as he states prior paracentesis was painful. . # Macrocytic anemia, MCV 101.6, Hgb 8.5 at Lei - Hgb 6.5 with MCV 99.0 on 02/07/17, s/p 2 units pRBCs now stable in 8-10 range. Transfuse < 8. s/p 1 unit pRBCs 02/16/17 for Hgb 7.7. s/p 1 unit pRBCs for symptomatic anemia with Hgb 8.0 on 02/20/17, now Hgb 8.7. - iron panel with Fe 109, TIBC low at 125, %87, ferritin 1250 consistent with anemia of chronic inflammation, B12/folate/TSH SNL, homocysteine elevated at 29.9; methylmalonic acid normal at 118. Therefore, patient may benefit from folate supplementation, as increased homocysteine is tied to increased cardiovascular risk and folate administration may lower homocysteine though unclear whether decreases cardiovascular risk. Patient noted to already be on folate. LDH elevated, retic count inappropriately low; haptoglobin < 15 (though likely low due to liver disease) Case management request for auth to be obtained for outpatient follow-up with me or Dr. Naya Dawson Problems: Consultation Date/Type/Reason Admit Date/Time February 05, 2017 at 18:37 Initial Consult Date 02/06/17 Type of Consultation: Hematology Referring Provider: CARL GRANT MD 24 HR Interval Summary Free Text/Dictation Patient had bleeding around PICC line last night. Overall no major changes but feels "lousy." Exam/Review of Systems Vital Signs Vitals Vital Signs Date Time Temp Pulse Resp B/P Pulse Ox O2 Delivery O2 Flow Rate FiO2 02/21/17 07:38 98.1 72 18 116/72 100 Intake and Output 02/20/17 02/20/17 02/21/17 15:00 23:00 07:00 Intake Total 1250 ml Balance 1250 ml Exam Constitutional: alert, oriented, well developed, jaunduced Head: normocephalic Eyes: icteric ENMT: nl external ears & nose Neck: non-tender Respiratory: clear to auscultation Cardiovascular: nl pulses Gastrointestinal: distended, ascites Musculoskeletal: +edema bilaterally Extremities: normal pulses, bruises Neurological: nl mental status, nl speech Results Result Diagram: 02/21/1762602/21/17626 Results 24 hrs Laboratory Tests Test 02/21/17 05:08 02/21/17 06:27 Lab Scanned Report BLOOD TRANSFUSION White Blood Count 11.1 H Red Blood Count 2.68 L Hemoglobin 8.7 L Hematocrit 24.0 L Mean Corpuscular Volume 89.6 Mean Corpuscular Hemoglobin 32.5 Mean Corpuscular Hemoglobin Concent 36.3 Red Cell Distribution Width 18.2 H Platelet Count 33 L Mean Platelet Volume 12.4 H Neutrophils % 78.0 H Lymphocytes % 9.7 L Monocytes % 8.7 Eosinophils % 2.4 Basophils % 0.4 Nucleated Red Blood Cells % 0.0 Neutrophils # 8.6 H Lymphocytes # 1.1 Monocytes # 1.0 H Eosinophils # 0.3 Basophils # 0.0 Nucleated Red Blood Cells # 0.0 Sodium Level 129 L Potassium Level 3.3 L Chloride Level 96 L Carbon Dioxide Level 21 Anion Gap 15 Blood Urea Nitrogen 58 H Creatinine 1.49 H Glucose Level 104 # Calcium Level 8.7 Medications Medications Current Medications Multivitamins Therapeutic (Theragran) 1 tab DAILY PO Last administered on 09:23; Admin Dose 1 TAB; Start 02/06/17 at 09:00 Thiamine HCl (Vitamin B1) 100 mg DAILY PO Last administered on 02/21/17 09:23; Admin Dose 100 MG; Start 02/06/17 at 09:00 Lactulose (Enulose) 20 gm Q4 PRN PO CONSTIPATION Last administered on 17:07; Admin Dose 20 GM; Start 02/06/17 at 00:00 Pantoprazole (Protonix Tab) 40 mg DAILY@06 PO Last administered on 02/21/17 06: 07; Admin Dose 40 MG; Start 02/06/17 at 06:00 Rifaximin (Xifaxan) 550 mg BID PO Last administered on 02/21/17 09:24; Admin Dose 550 MG; Start 02/06/17 at 09:00 Folic Acid (Folic Acid) 1 mg DAILY PO Last administered on 02/21/17 09:23; Admin Dose 1 MG; Start 02/06/17 at 09:00 Aripiprazole (Abilify) 1 mg HS PO Last administered on 02/20/17 21:17; Admin Dose 1 MG; Start 02/06/17 at 21:00 Morphine Sulfate (morphine) 2 mg Q3H PRN IV PAIN Last administered on 02/21/17 03:31; Admin Dose 2 MG; Start 02/06/17 at 01:00 Citric Acid/ Sodium Citrate (Bicitra) 30 ml TID PO Last administered on 09:23; Admin Dose 30 ML; Start 02/06/17 at 21:00 Propranolol HCl (Inderal) 10 mg BID PO ; Start 02/10/17 at 21:00; Status Future Hold Ondansetron HCl (Zofran Inj) 4 mg Q6H PRN IV NAUSEA AND/OR VOMITING Last administered on 02/16/17 18:01; Admin Dose 4 MG; Start 02/12/17 at 09:30 Sodium Chloride (Nacl) 1 gm BID PO Last administered on 02/21/17 09:23; Admin Dose 1 GM; Start 02/16/17 at 21:00 Furosemide (Lasix) 20 mg DAILY IV Last administered on 02/21/17 09:24; Admin Dose 20 MG; Start 02/18/17 at 09:00 IV Flush 10 ml 10 ml PRN PRN IV IV PROTOCOL; Start 02/18/17 at 16:00 Potassium Chloride/Sodium Chloride (KCl/NS) 110 ml @ 55 mls/hr ONCE ONCE IVPB ; Start 02/21/17 at 10:00; Stop 02/21/17 at 11:59 TOABRAM MD Feb 21, 2017 10:37
[2017-02-21 12:00] VITALS: BP 110/69; PULSE 72; RESP 18
--- NOTE | 2017-02-21 18:12 | PN ---
Date/Time of Note Date/Time of Note DATE: 02/21/17 TIME: 18:08 Assessment/Plan VTE Prophylaxis VTE Prophylaxis Intervention: SCD's Lines/Catheters [facility] PICC Line Central line still needed: Yes Urinary Cath still in place: No Assessment/Plan Chief Complaint/Hosp Course Pt complains of generalized weakness, Na is 129 today, increased BLE edema. ASSESSMENT AND PLAN: - Alcoholic liver cirrhosis. Dr. Zelaya is following in gastroenterology consultation. - Ascites secondary to liver cirrhosis. S/p paracentesis on 02/17. - Hepatic encephalopathy, resolved. Continue lactulose and rifaximin. - Acute kidney injury, rule out hepatorenal syndrome. Dr. Robles is following in nephrology consultation. - Human immunodeficiency virus positive status. Dr. Shelby sosa is following in infectious disease consultation. - Thrombocytopenia secondary to alcoholic liver cirrhosis. Dr. Cabral is following in hematology consultation. - Microcytic anemia. Status post transfusion, continue to monitor hemoglobin and hematocrit. - Coagulopathy, status post FFP and vitamin K. - Cholelithiasis. Status post MRCP. no evidence of obstruction of bile duct stone. - Hyponatremia secondary to liver cirrhosis. Further recommendations based on clinical course. Plan of care discussed with Dr. James. Problems: Exam/Review of Systems Vital Signs Vitals Vital Signs Date Time Temp Pulse Resp B/P Pulse Ox O2 Delivery O2 Flow Rate FiO2 02/21/17 07:38 98.1 72 18 116/72 100 Intake and Output 02/20/17 02/20/17 02/21/17 15:00 23:00 07:00 Intake Total 1250 ml Balance 1250 ml Exam Constitutional: alert, oriented, other (Jaundiced) Psych: no complaints Eyes: icteric Neck: supple Respiratory: clear to auscultation Cardiovascular: nl pulses, regular rate and rhythm Gastrointestinal: distended, soft, ascites Musculoskeletal: nl extremities to inspection Extremities: normal pulses, edema Results Result Diagram: 02/21/17 0627 02/21/17 0627 Results 24 hrs Laboratory Tests Test 02/21/17 05:08 02/21/17 06:27 Lab Scanned Report BLOOD TRANSFUSION White Blood Count 11.1 H Red Blood Count 2.68 L Hemoglobin 8.7 L Hematocrit 24.0 L Mean Corpuscular Volume 89.6 Mean Corpuscular Hemoglobin 32.5 Mean Corpuscular Hemoglobin Concent 36.3 Red Cell Distribution Width 18.2 H Platelet Count 33 L Mean Platelet Volume 12.4 H Neutrophils % 78.0 H Lymphocytes % 9.7 L Monocytes % 8.7 Eosinophils % 2.4 Basophils % 0.4 Nucleated Red Blood Cells % 0.0 Neutrophils # 8.6 H Lymphocytes # 1.1 Monocytes # 1.0 H Eosinophils # 0.3 Basophils # 0.0 Nucleated Red Blood Cells # 0.0 Sodium Level 129 L Potassium Level 3.3 L Chloride Level 96 L Carbon Dioxide Level 21 Anion Gap 15 Blood Urea Nitrogen 58 H Creatinine 1.49 H Glucose Level 104 # Calcium Level 8.7 Medications Medications Current Medications Multivitamins Therapeutic (Theragran) 1 tab DAILY PO Last administered on 09:23; Admin Dose 1 TAB; Start 02/06/17 at 09:00 Thiamine HCl (Vitamin B1) 100 mg DAILY PO Last administered on 02/21/17 09:23; Admin Dose 100 MG; Start 02/06/17 at 09:00 Lactulose (Enulose) 20 gm Q4 PRN PO CONSTIPATION Last administered on 17:07; Admin Dose 20 GM; Start 02/06/17 at 00:00 Pantoprazole (Protonix Tab) 40 mg DAILY@06 PO Last administered on 02/21/17 06: 07; Admin Dose 40 MG; Start 02/06/17 at 06:00 Rifaximin (Xifaxan) 550 mg BID PO Last administered on 02/21/17 09:24; Admin Dose 550 MG; Start 02/06/17 at 09:00 Folic Acid (Folic Acid) 1 mg DAILY PO Last administered on 02/21/17 09:23; Admin Dose 1 MG; Start 02/06/17 at 09:00 Aripiprazole (Abilify) 1 mg HS PO Last administered on 02/20/17 21:17; Admin Dose 1 MG; Start 02/06/17 at 21:00 Morphine Sulfate (morphine) 2 mg Q3H PRN IV PAIN Last administered on 02/21/17 13:43; Admin Dose 2 MG; Start 02/06/17 at 01:00 Citric Acid/ Sodium Citrate (Bicitra) 30 ml TID PO Last administered on 09:23; Admin Dose 30 ML; Start 02/06/17 at 21:00 Propranolol HCl (Inderal) 10 mg BID PO ; Start 02/10/17 at 21:00; Status Future Hold Ondansetron HCl (Zofran Inj) 4 mg Q6H PRN IV NAUSEA AND/OR VOMITING Last administered on 02/16/17 18:01; Admin Dose 4 MG; Start 02/12/17 at 09:30 Sodium Chloride (Nacl) 1 gm BID PO Last administered on 02/21/17 09:23; Admin Dose 1 GM; Start 02/16/17 at 21:00 Furosemide (Lasix) 20 mg DAILY IV Last administered on 02/21/17 09:24; Admin Dose 20 MG; Start 02/18/17 at 09:00 IV Flush (NS 10 ml) 10 ml PRN PRN IV IV PROTOCOL; Start 02/18/17 at 16:00 ALIVIA ALVAREZ Feb 21, 2017 18:12
--- NOTE | 2017-02-21 18:33 | CONS ---
Date/Time of Note Date/Time of Note DATE: 02/21/17 TIME: 18:32 Assessment/Plan Assessment/Plan Chief Complaint/Hosp Course IMPRESSION: 1. Exertional chest pain, assess for acute coronary syndrome.-negative troponin x 3. EF >65% by echo this admit. CP resolved 2. Dyspnea on exertion, assess for congestive heart failure.-increased BNP,. 3. Abnormal electrocardiogram, assess for acute coronary syndrome.-negative troponin x 3/NL EF by echo >65% this admit 4. Liver cirrhosis. 5. Nausea, vomiting. 6. ETOH abuse. 7. Polysubstance abuse. 8. Human immunodeficiency virus positivity. 9. Renal failure. 10. Hyponatremia. 11. Coagulopathy. 12. Anemia. 13. Thrombocytopenia. 14.Hypotension-intermittent/labile 15.Hyponatremia REcc: -Tele -Continue abx's and f/u cx data -Continue gentle diuresis following NA and BP closely -Continue salt tabs -Holding propranolol given hypotension -Continue PPI Problems: Consultation Date/Type/Reason Admit Date/Time February 05, 2017 at 18:37 Initial Consult Date 02/07/17 Type of Consultation: cardiology Reason for Consultation Chest pain Referring Provider: CARL GRANT MD Exam/Review of Systems Vital Signs Vitals Vital Signs Date Time Temp Pulse Resp B/P Pulse Ox O2 Delivery O2 Flow Rate FiO2 02/21/17 07:38 98.1 72 18 116/72 100 Intake and Output 02/20/17 02/20/17 02/21/17 15:00 23:00 07:00 Intake Total 1250 ml Balance 1250 ml Exam Review of Systems: CONSTITUTIONAL: No fevers, chills. PULMONARY: mild sob CARDIOVASCULAR: No chest pain/palpitations GASTROINTESTINAL: No nausea/vomiting. GENITOURINARY: No hematuria/dysuria. MUSCULOSKELETAL: No myagias/arthalgias. PSYCHIATRIC: The patient denies depression. NEUROLOGIC: mild generalized weakness Constitutional: alert Psych: no complaints Head: normocephalic ENMT: mucosa pink and moist Neck: jvd (9 cm water), supple Respiratory: diminished breath sounds (at bases/B) Cardiovascular: regular rate and rhythm Gastrointestinal: non-tender, soft Musculoskeletal: muscle tone (normnal) Extremities: edema (LE bilateral) Neurological: lethargic Results Result Diagram: 02/21/17 0627 02/21/17 0627 Results 24 hrs Laboratory Tests Test 02/21/17 05:08 02/21/17 06:27 Lab Scanned Report BLOOD TRANSFUSION White Blood Count 11.1 H Red Blood Count 2.68 L Hemoglobin 8.7 L Hematocrit 24.0 L Mean Corpuscular Volume 89.6 Mean Corpuscular Hemoglobin 32.5 Mean Corpuscular Hemoglobin Concent 36.3 Red Cell Distribution Width 18.2 H Platelet Count 33 L Mean Platelet Volume 12.4 H Neutrophils % 78.0 H Lymphocytes % 9.7 L Monocytes % 8.7 Eosinophils % 2.4 Basophils % 0.4 Nucleated Red Blood Cells % 0.0 Neutrophils # 8.6 H Lymphocytes # 1.1 Monocytes # 1.0 H Eosinophils # 0.3 Basophils # 0.0 Nucleated Red Blood Cells # 0.0 Sodium Level 129 L Potassium Level 3.3 L Chloride Level 96 L Carbon Dioxide Level 21 Anion Gap 15 Blood Urea Nitrogen 58 H Creatinine 1.49 H Glucose Level 104 # Calcium Level 8.7 Medications Medications Current Medications Multivitamins Therapeutic (Theragran) 1 tab DAILY PO Last administered on 09:23; Admin Dose 1 TAB; Start 02/06/17 at 09:00 Thiamine HCl (Vitamin B1) 100 mg DAILY PO Last administered on 02/21/17 09:23; Admin Dose 100 MG; Start 02/06/17 at 09:00 Lactulose (Enulose) 20 gm Q4 PRN PO CONSTIPATION Last administered on 17:07; Admin Dose 20 GM; Start 02/06/17 at 00:00 Pantoprazole (Protonix Tab) 40 mg DAILY@06 PO Last administered on 02/21/17 06: 07; Admin Dose 40 MG; Start 02/06/17 at 06:00 Rifaximin (Xifaxan) 550 mg BID PO Last administered on 02/21/17 09:24; Admin Dose 550 MG; Start 02/06/17 at 09:00 Folic Acid (Folic Acid) 1 mg DAILY PO Last administered on 02/21/17 09:23; Admin Dose 1 MG; Start 02/06/17 at 09:00 Aripiprazole (Abilify) 1 mg HS PO Last administered on 02/20/17 21:17; Admin Dose 1 MG; Start 02/06/17 at 21:00 Morphine Sulfate (morphine) 2 mg Q3H PRN IV PAIN Last administered on 02/21/17 13:43; Admin Dose 2 MG; Start 02/06/17 at 01:00 Citric Acid/ Sodium Citrate (Bicitra) 30 ml TID PO Last administered on 09:23; Admin Dose 30 ML; Start 02/06/17 at 21:00 Propranolol HCl (Inderal) 10 mg BID PO ; Start 02/10/17 at 21:00; Status Future Hold Ondansetron HCl (Zofran Inj) 4 mg Q6H PRN IV NAUSEA AND/OR VOMITING Last administered on 02/16/17 18:01; Admin Dose 4 MG; Start 02/12/17 at 09:30 Sodium Chloride (Nacl) 1 gm BID PO Last administered on 02/21/17 09:23; Admin Dose 1 GM; Start 02/16/17 at 21:00 Furosemide (Lasix) 20 mg DAILY IV Last administered on 02/21/17 09:24; Admin Dose 20 MG; Start 02/18/17 at 09:00 IV Flush (NS 10 ml) 10 ml PRN PRN IV IV PROTOCOL; Start 02/18/17 at 16:00 SHAY COTTRELL Feb 21, 2017 18:33
--- NOTE | 2017-02-21 18:48 | CONS ---
Date/Time of Note Date/Time of Note DATE: 02/21/17 TIME: 18:47 Assessment/Plan Assessment/Plan Chief Complaint/Hosp Course false positive initial HIV screen (positive by an initial screen, negative by a confirmatory antibody), HIV 1 viral load was undetectable twice, 4th generation HIV Ag/Ab combination test was unreactive. Pt denies a trip to or living in the parts of world endemic for HIV 2. 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 Pt has not received blood transfusions or blood products in the past - Hyponatremia likely secondary to cirrhosis - Acute on chronic anemia requiring blood transfusion - Coagulopathy due to liver disease - Thrombocytopenia - Hyperammonemia - AGATA - Portal hypertension - Cholelithiasis - Recurrent ascites s/p paracentesis ~4 weeks ago with 1.6 L removed, repeat paracentesis on 02/17/2017 s/p 3 L removal - S/p hyperkalemia - H/o alcoholism - H/o substance abuse recommendations: - monitor off antibiotics at this time - monitor his mental status closely Problems: Consultation Date/Type/Reason Admit Date/Time February 05, 2017 at 18:37 Initial Consult Date 02/06/17 Type of Consultation: id Referring Provider: CARL GRANT MD Exam/Review of Systems Vital Signs Vitals Vital Signs Date Time Temp Pulse Resp B/P Pulse Ox O2 Delivery O2 Flow Rate FiO2 02/21/17 07:38 98.1 72 18 116/72 100 Intake and Output 02/20/17 02/20/17 02/21/17 15:00 23:00 07:00 Intake Total 1250 ml Balance 1250 ml Exam Constitutional: alert, oriented, well developed Psych: nl mood/affect, no complaints Eyes: EOMI ENMT: nl external ears & nose, nl lips & teeth, nl nasal mucosa & septum Respiratory: clear to auscultation, normal air movement Cardiovascular: nl pulses, regular rate and rhythm Gastrointestinal: nl liver, spleen, non-tender, soft Results Result Diagram: 02/21/17 0627 02/21/17 0627 Results 24 hrs Laboratory Tests Test 02/21/17 05:08 02/21/17 06:27 Lab Scanned Report BLOOD TRANSFUSION White Blood Count 11.1 H Red Blood Count 2.68 L Hemoglobin 8.7 L Hematocrit 24.0 L Mean Corpuscular Volume 89.6 Mean Corpuscular Hemoglobin 32.5 Mean Corpuscular Hemoglobin Concent 36.3 Red Cell Distribution Width 18.2 H Platelet Count 33 L Mean Platelet Volume 12.4 H Neutrophils % 78.0 H Lymphocytes % 9.7 L Monocytes % 8.7 Eosinophils % 2.4 Basophils % 0.4 Nucleated Red Blood Cells % 0.0 Neutrophils # 8.6 H Lymphocytes # 1.1 Monocytes # 1.0 H Eosinophils # 0.3 Basophils # 0.0 Nucleated Red Blood Cells # 0.0 Sodium Level 129 L Potassium Level 3.3 L Chloride Level 96 L Carbon Dioxide Level 21 Anion Gap 15 Blood Urea Nitrogen 58 H Creatinine 1.49 H Glucose Level 104 # Calcium Level 8.7 Medications Medications Current Medications Multivitamins Therapeutic (Theragran) 1 tab DAILY PO Last administered on 09:23; Admin Dose 1 TAB; Start 02/06/17 at 09:00 Thiamine HCl (Vitamin B1) 100 mg DAILY PO Last administered on 02/21/17 09:23; Admin Dose 100 MG; Start 02/06/17 at 09:00 Lactulose (Enulose) 20 gm Q4 PRN PO CONSTIPATION Last administered on 17:07; Admin Dose 20 GM; Start 02/06/17 at 00:00 Pantoprazole (Protonix Tab) 40 mg DAILY@06 PO Last administered on 02/21/17 06: 07; Admin Dose 40 MG; Start 02/06/17 at 06:00 Rifaximin (Xifaxan) 550 mg BID PO Last administered on 02/21/17 09:24; Admin Dose 550 MG; Start 02/06/17 at 09:00 Folic Acid (Folic Acid) 1 mg DAILY PO Last administered on 02/21/17 09:23; Admin Dose 1 MG; Start 02/06/17 at 09:00 Aripiprazole (Abilify) 1 mg HS PO Last administered on 02/20/17 21:17; Admin Dose 1 MG; Start 02/06/17 at 21:00 Morphine Sulfate (morphine) 2 mg Q3H PRN IV PAIN Last administered on 02/21/17 13:43; Admin Dose 2 MG; Start 02/06/17 at 01:00 Citric Acid/ Sodium Citrate (Bicitra) 30 ml TID PO Last administered on 09:23; Admin Dose 30 ML; Start 02/06/17 at 21:00 Propranolol HCl (Inderal) 10 mg BID PO ; Start 02/10/17 at 21:00; Status Future Hold Ondansetron HCl (Zofran Inj) 4 mg Q6H PRN IV NAUSEA AND/OR VOMITING Last administered on 02/16/17 18:01; Admin Dose 4 MG; Start 02/12/17 at 09:30 Sodium Chloride (Nacl) 1 gm BID PO Last administered on 02/21/17 09:23; Admin Dose 1 GM; Start 02/16/17 at 21:00 Furosemide (Lasix) 20 mg DAILY IV Last administered on 02/21/17 09:24; Admin Dose 20 MG; Start 02/18/17 at 09:00 IV Flush (NS 10 ml) 10 ml PRN PRN IV IV PROTOCOL; Start 02/18/17 at 16:00 XAVI GARCES MD Feb 21, 2017 18:48
[2017-02-21 19:19] VITALS: BP 118/61; RESP 18
[2017-02-21] MEDS: ARIPIPRAZOLE 2 MG TAB PO SCH (21:19)
[2017-02-22] MEDS: morphine 2 MG INJ IV PRN ×4 (00:34→21:07)
[2017-02-22 05:35] LABS: ADD SCAN DIFF NO
[2017-02-22 05:43] LABS: ABNORMAL IP MESSAGE 1; BASOPHILS % 0.3 % (0.0-2.0); EOSINOPHILS # 0.3 10^3/ul (0.0-0.5); EOSINOPHILS % 2.6 % (0.0-7.0); HEMATOCRIT 23.9 % (42.0-52.0); HEMOGLOBIN 8.6 g/dl (14.0-18.0); LYMPHOCYTES # 1.2 10^3/ul (0.8-2.9); LYMPHOCYTES % 9.5 % (15.0-51.0); MEAN CORPUSCULAR HEMOGLOBIN 32.6 pg (29.0-33.0); MEAN CORPUSCULAR VOLUME 90.5 fl (82.0-101.0); MONOCYTE # 1.2 10^3/ul (0.3-0.9); MONOCYTES % 9.8 % (0.0-11.0); NEUTROPHIL # 9.3 10^3/ul (1.6-7.5); NEUTROPHILS % 77.1 % (39.0-77.0); PLATELET COUNT 33 10^3/UL (140-415); RED BLOOD COUNT 2.64 10^6/ul (4.70-6.10); RED CELL DISTRIBUTION WIDTH 18.7 % (11.5-14.5); WHITE BLOOD COUNT 12.1 10^3/ul (4.8-10.8)
[2017-02-22] MEDS: PANTOPRAZOLE (EC) 40 MG TAB PO SCH (05:49)
[2017-02-22 06:02] LABS: CALCIUM 8.7 mg/dl (8.4-10.2); CREATININE 1.78 mg/dl (0.61-1.24); POTASSIUM 3.7 mmol/L (3.5-5.1)
[2017-02-22] MEDS: MULTIVITAMINS THERAPEUTIC TAB PO SCH (08:22)
[2017-02-22] MEDS: SODIUM CHLORIDE 1 GM TAB PO SCH ×2 (08:22→20:50)
[2017-02-22] MEDS: RIFAXIMIN 550 MG TAB PO SCH ×2 (08:22→20:50)
[2017-02-22] MEDS: FOLIC ACID 1 MG TAB PO SCH (08:22)
[2017-02-22] MEDS: THIAMINE 100 MG TAB PO SCH (08:22)
[2017-02-22] MEDS: CITRIC ACID/SODIUM CITRATE 15 ML CUP PO SCH ×3 (08:23→20:47)
[2017-02-22] MEDS: FUROSEMIDE 20 MG INJ IV SCH (08:24)
[2017-02-22 08:47] VITALS: BP 120/68; RESP 18
--- NOTE | 2017-02-22 15:58 | CONS ---
Date/Time of Note Date/Time of Note DATE: 02/22/17 TIME: 15:57 Assessment/Plan Assessment/Plan Chief Complaint/Hosp Course false positive initial HIV screen (positive by an initial screen, negative by a confirmatory antibody), HIV 1 viral load was undetectable twice, 4th generation HIV Ag/Ab combination test was unreactive. Pt denies a trip to or living in the parts of world endemic for HIV 2. 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 Pt has not received blood transfusions or blood products in the past - Hyponatremia likely secondary to cirrhosis - Acute on chronic anemia requiring blood transfusion - Coagulopathy due to liver disease - Thrombocytopenia - Hyperammonemia - AGATA - Portal hypertension - Cholelithiasis - Recurrent ascites s/p paracentesis ~4 weeks ago with 1.6 L removed, repeat paracentesis on 02/17/2017 s/p 3 L removal - S/p hyperkalemia - H/o alcoholism - H/o substance abuse recommendations: - monitor off antibiotics at this time - monitor his mental status closely Problems: Consultation Date/Type/Reason Admit Date/Time February 05, 2017 at 18:37 Initial Consult Date 02/06/17 Type of Consultation: id Referring Provider: CARL GRANT MD Exam/Review of Systems Vital Signs Vitals Vital Signs Date Time Temp Pulse Resp B/P Pulse Ox O2 Delivery O2 Flow Rate FiO2 02/22/17 08:47 97.8 79 18 120/68 99 Intake and Output 02/21/17 02/21/17 02/22/17 15:00 23:00 07:00 Intake Total 695 ml 300 ml 600 ml Output Total 1300 ml Balance 695 ml 300 ml -700 ml Exam Constitutional: alert, well developed Psych: nl mood/affect, no complaints Respiratory: clear to auscultation, normal air movement Cardiovascular: regular rate and rhythm Gastrointestinal: soft Musculoskeletal: nl extremities to inspection Results Result Diagram: 02/22/17 0450 02/22/17 0450 Results 24 hrs Laboratory Tests Test 02/22/17 04:50 White Blood Count 12.1 H Red Blood Count 2.64 L Hemoglobin 8.6 L Hematocrit 23.9 L Mean Corpuscular Volume 90.5 Mean Corpuscular Hemoglobin 32.6 Mean Corpuscular Hemoglobin Concent 36.0 Red Cell Distribution Width 18.7 H Platelet Count 33 L Mean Platelet Volume 12.0 H Neutrophils % 77.1 H Lymphocytes % 9.5 L Monocytes % 9.8 Eosinophils % 2.6 Basophils % 0.3 Nucleated Red Blood Cells % 0.0 Neutrophils # 9.3 H Lymphocytes # 1.2 Monocytes # 1.2 H Eosinophils # 0.3 Basophils # 0.0 Nucleated Red Blood Cells # 0.0 Sodium Level 128 L Potassium Level 3.7 Chloride Level 96 L Carbon Dioxide Level 21 Anion Gap 15 Blood Urea Nitrogen 65 H Creatinine 1.78 H Glucose Level 91 Calcium Level 8.7 Medications Medications Current Medications Multivitamins Therapeutic (Theragran) 1 tab DAILY PO Last administered on 08:22; Admin Dose 1 TAB; Start 02/06/17 at 09:00 Thiamine HCl (Vitamin B1) 100 mg DAILY PO Last administered on 02/22/17 08:22; Admin Dose 100 MG; Start 02/06/17 at 09:00 Lactulose (Enulose) 20 gm Q4 PRN PO CONSTIPATION Last administered on 17:07; Admin Dose 20 GM; Start 02/06/17 at 00:00 Pantoprazole (Protonix Tab) 40 mg DAILY@06 PO Last administered on 02/22/17 05: 49; Admin Dose 40 MG; Start 02/06/17 at 06:00 Rifaximin (Xifaxan) 550 mg BID PO Last administered on 02/22/17 08:22; Admin Dose 550 MG; Start 02/06/17 at 09:00 Folic Acid (Folic Acid) 1 mg DAILY PO Last administered on 02/22/17 08:22; Admin Dose 1 MG; Start 02/06/17 at 09:00 Aripiprazole (Abilify) 1 mg HS PO Last administered on 02/21/17 21:19; Admin Dose 1 MG; Start 02/06/17 at 21:00 Morphine Sulfate (morphine) 2 mg Q3H PRN IV PAIN Last administered on 02/22/17 14:28; Admin Dose 2 MG; Start 02/06/17 at 01:00 Citric Acid/ Sodium Citrate (Bicitra) 30 ml TID PO Last administered on 09:23; Admin Dose 30 ML; Start 02/06/17 at 21:00 Propranolol HCl (Inderal) 10 mg BID PO ; Start 02/10/17 at 21:00; Status Future Hold Ondansetron HCl (Zofran Inj) 4 mg Q6H PRN IV NAUSEA AND/OR VOMITING Last administered on 02/16/17 18:01; Admin Dose 4 MG; Start 02/12/17 at 09:30 Sodium Chloride (Nacl) 1 gm BID PO Last administered on 02/22/17 08:22; Admin Dose 1 GM; Start 02/16/17 at 21:00 Furosemide (Lasix) 20 mg DAILY IV Last administered on 02/22/17 08:24; Admin Dose 20 MG; Start 02/18/17 at 09:00 IV Flush (NS 10 ml) 10 ml PRN PRN IV IV PROTOCOL; Start 02/18/17 at 16:00 XAVI GARCES MD Feb 22, 2017 15:58
--- NOTE | 2017-02-22 17:46 | CONS ---
Date/Time of Note Date/Time of Note DATE: 02/22/17 TIME: 17:38 Assessment/Plan Assessment/Plan Chief Complaint/Hosp Course The patient is a 56-year-old male patient with a history of alcoholic liver cirrhosis, hemophilia, admitted with hepatorenal syndrome-nephrology. No active bleeding. Hematology consulted due to history of hemophilia and thrombocytopenia. # Thrombocytopenia, likely related to alcoholic liver cirrhosis and splenomegaly - platelet count 79 at [place], now 30-60K. Continue to monitor, no evidence of bleeding. Unclear why platelet count decreasing, patient does not appear septic , no obvious offending medications. Stable from yesterday. - Transfuse < 10, < 50 if bleeding, otherwise monitor - HIV screen positive, however HIV Antibody 1/2 confirm negative, probably false positive per ID. 4th generation HIV testing returned as non-reactive. Appreciate ID recs. - Hepatitis panel negative, unlikely DIC as prolongation of caogs and low fibrinogen likely related to liver disease. No need to give cryoprecipitate unless patient bleeding. - Abdominal US showed 1. Coarsened hepatic echotexture and suggested liver surface nodularity and mild common bile duct dilatation. - MRI Abdomen 02/08/17 showed 1. Cirrhosis without definite evidence of focal hepatic lesion. 2. Small ascites and splenomegaly. 3. Cholelithiasis with irregular gallbladder wall thickening may be related to chronic cholecystitis however cannot rule out underlying gallbladder mass lesion. 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 Kehinde Jimenez who informed me that he does not have a history of hemophilia but rather simply coagulopathy due to liver disease. However, the patient states that he was diagnosed in his 20s with hemophilia, prior to liver disease, diagnosed by Dr. Hu (now ) in [place]. 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 Factor IX low at 28%, difficult to determine whether related to liver disease, but even if patient does have mild hemophilia B it would be mild. Factor VIII level elevated 22. 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 If needs repeat paracentesis , can give further FFP and factor IX, plus vitamin K as needed, however patient declines at this time as he states prior paracentesis was painful. . # Macrocytic anemia, MCV 101.6, Hgb 8.5 at [place] - Hgb 6.5 with MCV 99.0 on 02/07/17, s/p 2 units pRBCs now stable in 8-10 range. Transfuse < 8. s/p 1 unit pRBCs 02/16/17 for Hgb 7.7. s/p 1 unit pRBCs for symptomatic anemia with Hgb 8.0 on 02/20/17, now stable at Hgb 8.6. - iron panel with Fe 109, TIBC low at 125, %87, ferritin 1250 consistent with anemia of chronic inflammation, B12/folate/TSH SNL, homocysteine elevated at 29.9; methylmalonic acid normal at 118. Therefore, patient may benefit from folate supplementation, as increased homocysteine is tied to increased cardiovascular risk and folate administration may lower homocysteine though unclear whether decreases cardiovascular risk. Patient noted to already be on folate. LDH elevated, retic count inappropriately low; haptoglobin < 15 (though likely low due to liver disease) Case management request for auth to be obtained for outpatient follow-up with me or Dr. Naya Dawson Problems: Consultation Date/Type/Reason Admit Date/Time February 05, 2017 at 18:37 Initial Consult Date 02/06/17 Type of Consultation: Hematology Referring Provider: CARL GRANT MD 24 HR Interval Summary Free Text/Dictation Patient states that he is "retaining water." He had some bleeding from his PICC line but it stopped and is now "dried." Exam/Review of Systems Vital Signs Vitals Vital Signs Date Time Temp Pulse Resp B/P Pulse Ox O2 Delivery O2 Flow Rate FiO2 02/22/17 08:47 97.8 79 18 120/68 99 Intake and Output 02/21/17 02/21/17 02/22/17 14:59 22:59 06:59 Intake Total 695 ml 300 ml 600 ml Output Total 1300 ml Balance 695 ml 300 ml -700 ml Exam Constitutional: alert, oriented, well developed, jaunduced Head: normocephalic Eyes: icteric ENMT: nl external ears & nose Neck: non-tender Respiratory: clear to auscultation Cardiovascular: nl pulses Gastrointestinal: distended, ascites Musculoskeletal: +edema bilaterally Extremities: normal pulses, bruises Neurological: nl mental status, nl speech Results Result Diagram: 02/22/17 0450 02/22/17 0450 Results 24 hrs Laboratory Tests Test 02/22/17 04:50 White Blood Count 12.1 H Red Blood Count 2.64 L Hemoglobin 8.6 L Hematocrit 23.9 L Mean Corpuscular Volume 90.5 Mean Corpuscular Hemoglobin 32.6 Mean Corpuscular Hemoglobin Concent 36.0 Red Cell Distribution Width 18.7 H Platelet Count 33 L Mean Platelet Volume 12.0 H Neutrophils % 77.1 H Lymphocytes % 9.5 L Monocytes % 9.8 Eosinophils % 2.6 Basophils % 0.3 Nucleated Red Blood Cells % 0.0 Neutrophils # 9.3 H Lymphocytes # 1.2 Monocytes # 1.2 H Eosinophils # 0.3 Basophils # 0.0 Nucleated Red Blood Cells # 0.0 Sodium Level 128 L Potassium Level 3.7 Chloride Level 96 L Carbon Dioxide Level 21 Anion Gap 15 Blood Urea Nitrogen 65 H Creatinine 1.78 H Glucose Level 91 Calcium Level 8.7 Medications Medications Current Medications Multivitamins Therapeutic (Theragran) 1 tab DAILY PO Last administered on 08:22; Admin Dose 1 TAB; Start 02/06/17 at 09:00 Thiamine HCl (Vitamin B1) 100 mg DAILY PO Last administered on 02/22/17 08:22; Admin Dose 100 MG; Start 02/06/17 at 09:00 Lactulose (Enulose) 20 gm Q4 PRN PO CONSTIPATION Last administered on 17:07; Admin Dose 20 GM; Start 02/06/17 at 00:00 Pantoprazole (Protonix Tab) 40 mg DAILY@06 PO Last administered on 02/22/17 05: 49; Admin Dose 40 MG; Start 02/06/17 at 06:00 Rifaximin (Xifaxan) 550 mg BID PO Last administered on 02/22/17 08:22; Admin Dose 550 MG; Start 02/06/17 at 09:00 Folic Acid (Folic Acid) 1 mg DAILY PO Last administered on 02/22/17 08:22; Admin Dose 1 MG; Start 02/06/17 at 09:00 Aripiprazole (Abilify) 1 mg HS PO Last administered on 02/21/17 21:19; Admin Dose 1 MG; Start 02/06/17 at 21:00 Morphine Sulfate (morphine) 2 mg Q3H PRN IV PAIN Last administered on 02/22/17 14:28; Admin Dose 2 MG; Start 02/06/17 at 01:00 Citric Acid/ Sodium Citrate (Bicitra) 30 ml TID PO Last administered on 09:23; Admin Dose 30 ML; Start 02/06/17 at 21:00 Propranolol HCl (Inderal) 10 mg BID PO ; Start 02/10/17 at 21:00; Status Future Hold Ondansetron HCl (Zofran Inj) 4 mg Q6H PRN IV NAUSEA AND/OR VOMITING Last administered on 02/16/17 18:01; Admin Dose 4 MG; Start 02/12/17 at 09:30 Sodium Chloride (Nacl) 1 gm BID PO Last administered on 02/22/17 08:22; Admin Dose 1 GM; Start 02/16/17 at 21:00 Furosemide (Lasix) 20 mg DAILY IV Last administered on 02/22/17 08:24; Admin Dose 20 MG; Start 02/18/17 at 09:00 IV Flush (NS 10 ml) 10 ml PRN PRN IV IV PROTOCOL; Start 02/18/17 at 16:00 ABRAM HINDS MD Feb 22, 2017 17:46
--- NOTE | 2017-02-22 18:15 | PN ---
Date/Time of Note Date/Time of Note DATE: 02/22/17 TIME: 18:13 Assessment/Plan VTE Prophylaxis VTE Prophylaxis Intervention: SCD's Lines/Catheters IV [facility] (from [facility] PICC Line Central line still needed: Yes Urinary Cath still in place: No Assessment/Plan Chief Complaint/Hosp Course Patient was increased leukocytosis no fever, complains of generalized weakness. ASSESSMENT AND PLAN: - Alcoholic liver cirrhosis. Dr. Zelaya is following in gastroenterology consultation. - Ascites secondary to liver cirrhosis. S/p paracentesis on 02/17. - Hepatic encephalopathy, resolved. Continue lactulose and rifaximin. - Acute kidney injury, rule out hepatorenal syndrome. Dr. Robles is following in nephrology consultation. - Human immunodeficiency virus positive status. Dr. Shelby sosa is following in infectious disease consultation. - Thrombocytopenia secondary to alcoholic liver cirrhosis. Dr. Cabral is following in hematology consultation. - Microcytic anemia. Status post transfusion, continue to monitor hemoglobin and hematocrit. - Coagulopathy, status post FFP and vitamin K. - Cholelithiasis. Status post MRCP. no evidence of obstruction of bile duct stone. - Hyponatremia secondary to liver cirrhosis. Further recommendations based on clinical course. Plan of care discussed with Dr. James. Problems: Exam/Review of Systems Vital Signs Vitals Vital Signs Date Time Temp Pulse Resp B/P Pulse Ox O2 Delivery O2 Flow Rate FiO2 02/22/17 08:47 97.8 79 18 120/68 99 Intake and Output 02/21/17 02/21/17 02/22/17 15:00 23:00 07:00 Intake Total 695 ml 300 ml 600 ml Output Total 1300 ml Balance 695 ml 300 ml -700 ml Exam Constitutional: alert, oriented, other (Jaundiced) Psych: no complaints Eyes: icteric Neck: supple Respiratory: clear to auscultation Cardiovascular: nl pulses, regular rate and rhythm Gastrointestinal: distended, soft, ascites Musculoskeletal: nl extremities to inspection Extremities: normal pulses, edema Results Result Diagram: 02/22/17 0450 02/22/17 0450 Results 24 hrs Laboratory Tests Test 02/22/17 04:50 White Blood Count 12.1 H Red Blood Count 2.64 L Hemoglobin 8.6 L Hematocrit 23.9 L Mean Corpuscular Volume 90.5 Mean Corpuscular Hemoglobin 32.6 Mean Corpuscular Hemoglobin Concent 36.0 Red Cell Distribution Width 18.7 H Platelet Count 33 L Mean Platelet Volume 12.0 H Neutrophils % 77.1 H Lymphocytes % 9.5 L Monocytes % 9.8 Eosinophils % 2.6 Basophils % 0.3 Nucleated Red Blood Cells % 0.0 Neutrophils # 9.3 H Lymphocytes # 1.2 Monocytes # 1.2 H Eosinophils # 0.3 Basophils # 0.0 Nucleated Red Blood Cells # 0.0 Sodium Level 128 L Potassium Level 3.7 Chloride Level 96 L Carbon Dioxide Level 21 Anion Gap 15 Blood Urea Nitrogen 65 H Creatinine 1.78 H Glucose Level 91 Calcium Level 8.7 Medications Medications Current Medications Multivitamins Therapeutic (Theragran) 1 tab DAILY PO Last administered on 08:22; Admin Dose 1 TAB; Start 02/06/17 at 09:00 Thiamine HCl (Vitamin B1) 100 mg DAILY PO Last administered on 02/22/17 08:22; Admin Dose 100 MG; Start 02/06/17 at 09:00 Lactulose (Enulose) 20 gm Q4 PRN PO CONSTIPATION Last administered on 17:07; Admin Dose 20 GM; Start 02/06/17 at 00:00 Pantoprazole (Protonix Tab) 40 mg DAILY@06 PO Last administered on 02/22/17 05: 49; Admin Dose 40 MG; Start 02/06/17 at 06:00 Rifaximin (Xifaxan) 550 mg BID PO Last administered on 02/22/17 08:22; Admin Dose 550 MG; Start 02/06/17 at 09:00 Folic Acid (Folic Acid) 1 mg DAILY PO Last administered on 02/22/17 08:22; Admin Dose 1 MG; Start 02/06/17 at 09:00 Aripiprazole (Abilify) 1 mg HS PO Last administered on 02/21/17 21:19; Admin Dose 1 MG; Start 02/06/17 at 21:00 Morphine Sulfate (morphine) 2 mg Q3H PRN IV PAIN Last administered on 02/22/17 14:28; Admin Dose 2 MG; Start 02/06/17 at 01:00 Citric Acid/ Sodium Citrate (Bicitra) 30 ml TID PO Last administered on 09:23; Admin Dose 30 ML; Start 02/06/17 at 21:00 Propranolol HCl (Inderal) 10 mg BID PO ; Start 02/10/17 at 21:00; Status Future Hold Ondansetron HCl (Zofran Inj) 4 mg Q6H PRN IV NAUSEA AND/OR VOMITING Last administered on 02/16/17 18:01; Admin Dose 4 MG; Start 02/12/17 at 09:30 Sodium Chloride (Nacl) 1 gm BID PO Last administered on 02/22/17 08:22; Admin Dose 1 GM; Start 02/16/17 at 21:00 Furosemide (Lasix) 20 mg DAILY IV Last administered on 02/22/17 08:24; Admin Dose 20 MG; Start 02/18/17 at 09:00 IV Flush (NS 10 ml) 10 ml PRN PRN IV IV PROTOCOL; Start 02/18/17 at 16:00 ALIVIA ALVAREZ Feb 22, 2017 18:15
[2017-02-22 20:25] VITALS: BP 121/57; RESP 20
[2017-02-22] MEDS: ARIPIPRAZOLE 2 MG TAB PO SCH (20:50)
--- NOTE | 2017-02-22 21:29 | CONS ---
Date/Time of Note Date/Time of Note DATE: 02/22/17 TIME: 21:27 Assessment/Plan Assessment/Plan Additional Assessment/Plan 1. Hyponatremia likely secondary to decompensated liver cirrhosis. 2. no heaptorenal syndrome 3. Acute kidney injury, likely secondary to prerenal azotemia in the setting of decompensated liver cirrhosis. 4. 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 5. History of recurrent ascites, status post last paracentesis done 3 weeks ago , 1.6 liters of fluid was removed. 6. Acute hyperkalemia, possibly secondary to Bactrim.- now resolved PLAN: - pt is not a candidate for Tolvaptan due to elevated LFTs Na dropped to 128- increased Na chloride tablet to 1 gram PO TID on IV lasix 20mg daily , tertiary care center referral for liver transplant evaluation bicitra 30ml TID for metabolic acidosis will follow up Consultation Date/Type/Reason Admit Date/Time February 05, 2017 at 18:37 Initial Consult Date 02/06/17 Type of Consultation: NEPHROLOGY Referring Provider: CARL GRANT MD 24 HR Interval Summary Free Text/Dictation Cr bumped to 1.78, BP stable , no fever, no chills Exam/Review of Systems Vital Signs Vitals Vital Signs Date Time Temp Pulse Resp B/P Pulse Ox O2 Delivery O2 Flow Rate FiO2 02/22/17 20:25 98.3 81 20 121/57 98 Intake and Output 02/21/17 02/21/17 02/22/17 14:59 22:59 06:59 Intake Total 695 ml 300 ml 600 ml Output Total 1300 ml Balance 695 ml 300 ml -700 ml Exam Constitutional: alert, oriented, well developed, jaunduced Respiratory: clear to auscultation Cardiovascular: nl pulses Gastrointestinal: distended, ascites Musculoskeletal: nl extremities to inspection Extremities: normal pulses, bruises Neurological: nl mental status, nl speech Results Result Diagram: 02/22/170 02/22/170 Results 24 hrs Laboratory Tests Test 02/22/17 04:50 White Blood Count 12.1 H Red Blood Count 2.64 L Hemoglobin 8.6 L Hematocrit 23.9 L Mean Corpuscular Volume 90.5 Mean Corpuscular Hemoglobin 32.6 Mean Corpuscular Hemoglobin Concent 36.0 Red Cell Distribution Width 18.7 H Platelet Count 33 L Mean Platelet Volume 12.0 H Neutrophils % 77.1 H Lymphocytes % 9.5 L Monocytes % 9.8 Eosinophils % 2.6 Basophils % 0.3 Nucleated Red Blood Cells % 0.0 Neutrophils # 9.3 H Lymphocytes # 1.2 Monocytes # 1.2 H Eosinophils # 0.3 Basophils # 0.0 Nucleated Red Blood Cells # 0.0 Sodium Level 128 L Potassium Level 3.7 Chloride Level 96 L Carbon Dioxide Level 21 Anion Gap 15 Blood Urea Nitrogen 65 H Creatinine 1.78 H Glucose Level 91 Calcium Level 8.7 Medications Medications Current Medications Multivitamins Therapeutic (Theragran) 1 tab DAILY PO Last administered on 08:22; Admin Dose 1 TAB; Start 02/06/17 at 09:00 Thiamine HCl (Vitamin B1) 100 mg DAILY PO Last administered on 02/22/17 08:22; Admin Dose 100 MG; Start 02/06/17 at 09:00 Lactulose (Enulose) 20 gm Q4 PRN PO CONSTIPATION Last administered on 17:07; Admin Dose 20 GM; Start 02/06/17 at 00:00 Pantoprazole (Protonix Tab) 40 mg DAILY@06 PO Last administered on 02/22/17 05: 49; Admin Dose 40 MG; Start 02/06/17 at 06:00 Rifaximin (Xifaxan) 550 mg BID PO Last administered on 02/22/17 20:50; Admin Dose 550 MG; Start 02/06/17 at 09:00 Folic Acid (Folic Acid) 1 mg DAILY PO Last administered on 02/22/17 08:22; Admin Dose 1 MG; Start 02/06/17 at 09:00 Aripiprazole (Abilify) 1 mg HS PO Last administered on 02/22/17 20:50; Admin Dose 1 MG; Start 02/06/17 at 21:00 Morphine Sulfate (morphine) 2 mg Q3H PRN IV PAIN Last administered on 02/22/17 21:07; Admin Dose 2 MG; Start 02/06/17 at 01:00 Citric Acid/ Sodium Citrate (Bicitra) 30 ml TID PO Last administered on 09:23; Admin Dose 30 ML; Start 02/06/17 at 21:00 Propranolol HCl (Inderal) 10 mg BID PO ; Start 02/10/17 at 21:00; Status Future Hold Ondansetron HCl (Zofran Inj) 4 mg Q6H PRN IV NAUSEA AND/OR VOMITING Last administered on 02/16/17 18:01; Admin Dose 4 MG; Start 02/12/17 at 09:30 Sodium Chloride (Nacl) 1 gm BID PO Last administered on 02/22/17 20:50; Admin Dose 1 GM; Start 02/16/17 at 21:00 Furosemide (Lasix) 20 mg DAILY IV Last administered on 02/22/17 08:24; Admin Dose 20 MG; Start 02/18/17 at 09:00 IV Flush (NS 10 ml) 10 ml PRN PRN IV IV PROTOCOL; Start 02/18/17 at 16:00 ELLIOT PARRA MD Feb 22, 2017 21:29
[2017-02-23] MEDS: morphine 2 MG INJ IV PRN (01:40)
[2017-02-23] MEDS ORDERED: LORAZEPAM 2 MG INJ IV PRN (02:00)
[2017-02-23 05:22] LABS: ADD SCAN DIFF NO
[2017-02-23 05:32] LABS: ABNORMAL IP MESSAGE 1; BASOPHILS % 0.3 % (0.0-2.0); EOSINOPHILS # 0.3 10^3/ul (0.0-0.5); EOSINOPHILS % 2.8 % (0.0-7.0); HEMATOCRIT 21.7 % (42.0-52.0); HEMOGLOBIN 7.7 g/dl (14.0-18.0); LYMPHOCYTES # 1.1 10^3/ul (0.8-2.9); LYMPHOCYTES % 9.2 % (15.0-51.0); MEAN CORPUSCULAR HEMOGLOBIN 32.6 pg (29.0-33.0); MEAN CORPUSCULAR HGB CONC 35.5 g/dl (32.0-37.0); MEAN CORPUSCULAR VOLUME 91.9 fl (82.0-101.0); MEAN PLATELET VOLUME 13.3 fl (7.4-10.4); MONOCYTE # 1.1 10^3/ul (0.3-0.9); MONOCYTES % 9.5 % (0.0-11.0); NEUTROPHILS % 77.5 % (39.0-77.0); RED BLOOD COUNT 2.36 10^6/ul (4.70-6.10); RED CELL DISTRIBUTION WIDTH 18.2 % (11.5-14.5); WHITE BLOOD COUNT 11.6 10^3/ul (4.8-10.8)
[2017-02-23 05:42] LABS: PLATELET COUNT 30 10^3/UL (140-415)
[2017-02-23] MEDS: PANTOPRAZOLE (EC) 40 MG TAB PO SCH (05:55)
[2017-02-23 05:56] LABS: ALBUMIN 2.5 g/dl (3.3-4.9); ALBUMIN/GLOBULIN RATIO 0.65; BILIRUBIN,DIRECT 6.1 mg/dl (0.00-0.20); BILIRUBIN,INDIRECT 3.7 mg/dl (0-1.1); BILIRUBIN,TOTAL 9.8 mg/dl (0.2-1.3); CALCIUM 8.8 mg/dl (8.4-10.2); CREATININE 2.05 mg/dl (0.61-1.24); POTASSIUM 3.5 mmol/L (3.5-5.1); TOTAL PROTEIN 6.3 g/dl (6.1-8.1)
[2017-02-23 07:54] VITALS: BP 96/52; RESP 18
[2017-02-23] MEDS: FOLIC ACID 1 MG TAB PO SCH ×2 (09:00→09:33)
[2017-02-23] MEDS: FUROSEMIDE 20 MG INJ IV SCH (09:00)
[2017-02-23] MEDS: SODIUM CHLORIDE 1 GM TAB PO SCH ×3 (09:00→20:50)
[2017-02-23] MEDS: CITRIC ACID/SODIUM CITRATE 15 ML CUP PO SCH ×3 (09:00→20:50)
[2017-02-23] MEDS: RIFAXIMIN 550 MG TAB PO SCH ×3 (09:00→20:50)
[2017-02-23] MEDS: THIAMINE 100 MG TAB PO SCH ×2 (09:00→09:32)
[2017-02-23] MEDS: MULTIVITAMINS THERAPEUTIC TAB PO SCH ×2 (09:00→09:32)
--- NOTE | 2017-02-23 13:07 | CONS ---
Date/Time of Note Date/Time of Note DATE: 02/23/17 TIME: 13:03 Assessment/Plan Assessment/Plan Chief Complaint/Hosp Course IMPRESSION: 1. Exertional chest pain, assess for acute coronary syndrome.-negative troponin x 3. EF >65% by echo this admit. CP resolved 2. Dyspnea on exertion, assess for congestive heart failure.-increased BNP,. 3. Abnormal electrocardiogram, assess for acute coronary syndrome.-negative troponin x 3/NL EF by echo >65% this admit 4. Liver cirrhosis. 5. Nausea, vomiting. 6. ETOH abuse. 7. Polysubstance abuse. 8. Human immunodeficiency virus positivity. 9. Renal failure. 10. Hyponatremia. 11. Coagulopathy. 12. Anemia-worsening 13. Thrombocytopenia. 14.Hypotension-intermittent/labile 15.Hyponatremia REcc: -Continue abx's and f/u cx data -Continue gentle diuresis following NA and BP closely -Continue salt tabs -Holding propranolol given hypotension -Continue PPI Problems: Consultation Date/Type/Reason Admit Date/Time February 05, 2017 at 18:37 Initial Consult Date 02/07/17 Type of Consultation: cardiology Reason for Consultation Chest pain Referring Provider: CARL GRANT MD Exam/Review of Systems Vital Signs Vitals Vital Signs Date Time Temp Pulse Resp B/P Pulse Ox O2 Delivery O2 Flow Rate FiO2 02/23/17 07:54 97.0 78 18 96/52 97 Intake and Output 02/22/17 02/22/17 02/23/17 15:00 23:00 07:00 Intake Total 700 ml 800 ml Output Total 1100 ml Balance -400 ml 800 ml Exam Review of Systems: CONSTITUTIONAL: No fevers, chills. PULMONARY: No sob CARDIOVASCULAR: No chest pain/palpitations GASTROINTESTINAL: No nausea/vomiting. GENITOURINARY: No hematuria/dysuria. MUSCULOSKELETAL: No myagias/arthalgias. PSYCHIATRIC: The patient denies depression. NEUROLOGIC: No weakness Constitutional: alert Psych: no complaints Head: normocephalic ENMT: mucosa pink and moist Neck: jvd (9 cm water), supple Respiratory: diminished breath sounds (at bases/B) Cardiovascular: regular rate and rhythm Gastrointestinal: non-tender, soft Musculoskeletal: muscle tone (normal) Extremities: edema (none) Neurological: other (No focal deficits) Results Result Diagram: 02/23/17 0500 02/23/17 0500 Results 24 hrs Laboratory Tests Test 02/23/17 05:00 White Blood Count 11.6 H Red Blood Count 2.36 L Hemoglobin 7.7 L Hematocrit 21.7 L Mean Corpuscular Volume 91.9 Mean Corpuscular Hemoglobin 32.6 Mean Corpuscular Hemoglobin Concent 35.5 Red Cell Distribution Width 18.2 H Platelet Count 30 L Mean Platelet Volume 13.3 H Neutrophils % 77.5 H Lymphocytes % 9.2 L Monocytes % 9.5 Eosinophils % 2.8 Basophils % 0.3 Nucleated Red Blood Cells % 0.0 Neutrophils # 9.0 H Lymphocytes # 1.1 Monocytes # 1.1 H Eosinophils # 0.3 Basophils # 0.0 Nucleated Red Blood Cells # 0.0 Sodium Level 125 L Potassium Level 3.5 Chloride Level 95 L Carbon Dioxide Level 20 L Anion Gap 14 Blood Urea Nitrogen 75 H Creatinine 2.05 H Glucose Level 105 Calcium Level 8.8 Total Bilirubin 9.8 H Direct Bilirubin 6.10 H Indirect Bilirubin 3.7 H Aspartate Amino Transf (AST/SGOT) 100 H Alanine Aminotransferase (ALT/SGPT) 59 Alkaline Phosphatase 329 H Total Protein 6.3 Albumin 2.5 L Globulin 3.80 H Albumin/Globulin Ratio 0.65 Medications Medications Current Medications Multivitamins Therapeutic (Theragran) 1 tab DAILY PO Last administered on 09:32; Admin Dose 1 TAB; Start 02/06/17 at 09:00 Thiamine HCl (Vitamin B1) 100 mg DAILY PO Last administered on 02/23/17 09:32; Admin Dose 100 MG; Start 02/06/17 at 09:00 Lactulose (Enulose) 20 gm Q4 PRN PO CONSTIPATION Last administered on 17:07; Admin Dose 20 GM; Start 02/06/17 at 00:00 Pantoprazole (Protonix Tab) 40 mg DAILY@06 PO Last administered on 02/23/17 05: 55; Admin Dose 40 MG; Start 02/06/17 at 06:00 Rifaximin (Xifaxan) 550 mg BID PO Last administered on 02/23/17 09:33; Admin Dose 550 MG; Start 02/06/17 at 09:00 Folic Acid (Folic Acid) 1 mg DAILY PO Last administered on 02/23/17 09:33; Admin Dose 1 MG; Start 02/06/17 at 09:00 Aripiprazole (Abilify) 1 mg HS PO Last administered on 02/22/17 20:50; Admin Dose 1 MG; Start 02/06/17 at 21:00 Morphine Sulfate (morphine) 2 mg Q3H PRN IV PAIN Last administered on 02/23/17 01:40; Admin Dose 2 MG; Start 02/06/17 at 01:00 Citric Acid/ Sodium Citrate (Bicitra) 30 ml TID PO Last administered on 09:23; Admin Dose 30 ML; Start 02/06/17 at 21:00 Propranolol HCl (Inderal) 10 mg BID PO ; Start 02/10/17 at 21:00; Status Future Hold Ondansetron HCl (Zofran Inj) 4 mg Q6H PRN IV NAUSEA AND/OR VOMITING Last administered on 02/16/17 18:01; Admin Dose 4 MG; Start 02/12/17 at 09:30 Sodium Chloride (Nacl) 1 gm BID PO Last administered on 02/23/17 09:33; Admin Dose 1 GM; Start 02/16/17 at 21:00 Furosemide (Lasix) 20 mg DAILY IV Last administered on 02/22/17 08:24; Admin Dose 20 MG; Start 02/18/17 at 09:00 IV Flush (NS 10 ml) 10 ml PRN PRN IV IV PROTOCOL; Start 02/18/17 at 16:00 Lorazepam (Ativan) 1 mg Q2H PRN IV ANXIETY Last administered on 02/23/17 05:56 ; Admin Dose 1 MG; Start 02/23/17 at 02:00 SHAY COTTRELL Feb 23, 2017 13:07
--- NOTE | 2017-02-23 14:09 | CONS ---
Date/Time of Note Date/Time of Note DATE: 02/23/17 TIME: 14:06 Consult Date/Type/Reason Admit Date/Time February 05, 2017 at 18:37 Initial Consult Date 02/07/17 Type of Consultation: Infectious Disease f/u Ordering Provider: CARL GRANT MD Objective Vital Signs Date Time Temp Pulse Resp B/P Pulse Ox O2 Delivery O2 Flow Rate FiO2 02/23/17 07:54 97.0 78 18 96/52 97 Intake and Output 02/22/17 02/22/17 02/23/17 15:00 23:00 07:00 Intake Total 700 ml 800 ml Output Total 1100 ml Balance -400 ml 800 ml Exam Constitutional: alert, oriented, other (Jaundiced) Psych: no complaints Eyes: icteric Neck: supple Respiratory: clear to auscultation Cardiovascular: nl pulses, regular rate and rhythm Gastrointestinal: distended, soft, ascites Musculoskeletal: nl extremities to inspection Extremities: normal pulses, edema Results/Medications Result Diagram: 02/23/17 0500 02/23/17 0500 Results 24 hrs Laboratory Tests Test 02/23/17 05:00 White Blood Count 11.6 H Red Blood Count 2.36 L Hemoglobin 7.7 L Hematocrit 21.7 L Mean Corpuscular Volume 91.9 Mean Corpuscular Hemoglobin 32.6 Mean Corpuscular Hemoglobin Concent 35.5 Red Cell Distribution Width 18.2 H Platelet Count 30 L Mean Platelet Volume 13.3 H Neutrophils % 77.5 H Lymphocytes % 9.2 L Monocytes % 9.5 Eosinophils % 2.8 Basophils % 0.3 Nucleated Red Blood Cells % 0.0 Neutrophils # 9.0 H Lymphocytes # 1.1 Monocytes # 1.1 H Eosinophils # 0.3 Basophils # 0.0 Nucleated Red Blood Cells # 0.0 Sodium Level 125 L Potassium Level 3.5 Chloride Level 95 L Carbon Dioxide Level 20 L Anion Gap 14 Blood Urea Nitrogen 75 H Creatinine 2.05 H Glucose Level 105 Calcium Level 8.8 Total Bilirubin 9.8 H Direct Bilirubin 6.10 H Indirect Bilirubin 3.7 H Aspartate Amino Transf (AST/SGOT) 100 H Alanine Aminotransferase (ALT/SGPT) 59 Alkaline Phosphatase 329 H Total Protein 6.3 Albumin 2.5 L Globulin 3.80 H Albumin/Globulin Ratio 0.65 Medications Current Medications Multivitamins Therapeutic (Theragran) 1 tab DAILY PO Last administered on 09:32; Admin Dose 1 TAB; Start 02/06/17 at 09:00 Thiamine HCl (Vitamin B1) 100 mg DAILY PO Last administered on 02/23/17 09:32; Admin Dose 100 MG; Start 02/06/17 at 09:00 Lactulose (Enulose) 20 gm Q4 PRN PO CONSTIPATION Last administered on 17:07; Admin Dose 20 GM; Start 02/06/17 at 00:00 Pantoprazole (Protonix Tab) 40 mg DAILY@06 PO Last administered on 02/23/17 05: 55; Admin Dose 40 MG; Start 02/06/17 at 06:00 Rifaximin (Xifaxan) 550 mg BID PO Last administered on 02/23/17 09:33; Admin Dose 550 MG; Start 02/06/17 at 09:00 Folic Acid (Folic Acid) 1 mg DAILY PO Last administered on 02/23/17 09:33; Admin Dose 1 MG; Start 02/06/17 at 09:00 Aripiprazole (Abilify) 1 mg HS PO Last administered on 02/22/17 20:50; Admin Dose 1 MG; Start 02/06/17 at 21:00 Morphine Sulfate (morphine) 2 mg Q3H PRN IV PAIN Last administered on 02/23/17 01:40; Admin Dose 2 MG; Start 02/06/17 at 01:00 Citric Acid/ Sodium Citrate (Bicitra) 30 ml TID PO Last administered on 09:23; Admin Dose 30 ML; Start 02/06/17 at 21:00 Propranolol HCl (Inderal) 10 mg BID PO ; Start 02/10/17 at 21:00; Status Future Hold Ondansetron HCl (Zofran Inj) 4 mg Q6H PRN IV NAUSEA AND/OR VOMITING Last administered on 02/16/17 18:01; Admin Dose 4 MG; Start 02/12/17 at 09:30 Sodium Chloride (Nacl) 1 gm BID PO Last administered on 02/23/17 09:33; Admin Dose 1 GM; Start 02/16/17 at 21:00 Furosemide (Lasix) 20 mg DAILY IV Last administered on 02/22/17 08:24; Admin Dose 20 MG; Start 02/18/17 at 09:00 IV Flush (NS 10 ml) 10 ml PRN PRN IV IV PROTOCOL; Start 02/18/17 at 16:00 Assessment/Plan Chief Complaint/Hosp Course false positive initial HIV screen (positive by an initial screen, negative by a confirmatory antibody), HIV 1 viral load was undetectable twice, 4th generation HIV Ag/Ab combination test was unreactive. Pt denies a trip to or living in the parts of world endemic for HIV 2. 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 Pt has not received blood transfusions or blood products in the past - Hyponatremia likely secondary to cirrhosis - Acute on chronic anemia requiring blood transfusion - Coagulopathy due to liver disease - Thrombocytopenia - Hyperammonemia - AGATA - Portal hypertension - Cholelithiasis - Recurrent ascites s/p paracentesis ~4 weeks ago with 1.6 L removed, repeat paracentesis on 02/17/2017 s/p 3 L removal - S/p hyperkalemia - H/o alcoholism - H/o substance abuse recommendations: - continue monitor off antibiotics at this time - continue monitor his mental status closely Problems: KRISTEN HUNTER Feb 23, 2017 14:09
--- NOTE | 2017-02-23 14:18 | PN ---
Date/Time of Note Date/Time of Note DATE: 02/23/17 TIME: 14:14 Assessment/Plan VTE Prophylaxis VTE Prophylaxis Intervention: SCD's Lines/Catheters IV C[facility]ter Type ([facility] PICC Line Central line still needed: Yes Urinary Cath still in place: No Assessment/Plan Chief Complaint/Hosp Course Patient with increased jaundice, with increased creatinine, undergoing blood transfusion for hemoglobin of 7.7. ASSESSMENT AND PLAN: - Alcoholic liver cirrhosis. Dr. Zelaya is following in gastroenterology consultation. - Ascites secondary to liver cirrhosis. S/p paracentesis on 02/17. - Hepatic encephalopathy, resolved. Continue lactulose and rifaximin. - Acute kidney injury, rule out hepatorenal syndrome. Dr. Robles is following in nephrology consultation. - Human immunodeficiency virus positive status. Dr. Shelby sosa is following in infectious disease consultation. - Thrombocytopenia secondary to alcoholic liver cirrhosis. Dr. Cabral is following in hematology consultation. - Microcytic anemia. Status post transfusion, continue to monitor hemoglobin and hematocrit. - Coagulopathy, status post FFP and vitamin K. - Cholelithiasis. Status post MRCP, no evidence of obstruction of bile duct stone. - Hyponatremia secondary to liver cirrhosis. Further recommendations based on clinical course. Plan of care discussed with Dr. James. Problems: Exam/Review of Systems Vital Signs Vitals Vital Signs Date Time Temp Pulse Resp B/P Pulse Ox O2 Delivery O2 Flow Rate FiO2 02/23/17 07:54 97.0 78 18 96/52 97 Intake and Output 02/22/17 02/22/17 02/23/17 15:00 23:00 07:00 Intake Total 700 ml 800 ml Output Total 1100 ml Balance -400 ml 800 ml Exam Constitutional: alert, oriented, other (Jaundiced) Psych: no complaints Eyes: icteric Neck: supple Respiratory: clear to auscultation Cardiovascular: nl pulses, regular rate and rhythm Gastrointestinal: distended, soft, ascites Musculoskeletal: nl extremities to inspection Extremities: normal pulses, edema Results Result Diagram: 02/23/17 0500 02/23/17 0500 Results 24 hrs Laboratory Tests Test 02/23/17 05:00 White Blood Count 11.6 H Red Blood Count 2.36 L Hemoglobin 7.7 L Hematocrit 21.7 L Mean Corpuscular Volume 91.9 Mean Corpuscular Hemoglobin 32.6 Mean Corpuscular Hemoglobin Concent 35.5 Red Cell Distribution Width 18.2 H Platelet Count 30 L Mean Platelet Volume 13.3 H Neutrophils % 77.5 H Lymphocytes % 9.2 L Monocytes % 9.5 Eosinophils % 2.8 Basophils % 0.3 Nucleated Red Blood Cells % 0.0 Neutrophils # 9.0 H Lymphocytes # 1.1 Monocytes # 1.1 H Eosinophils # 0.3 Basophils # 0.0 Nucleated Red Blood Cells # 0.0 Sodium Level 125 L Potassium Level 3.5 Chloride Level 95 L Carbon Dioxide Level 20 L Anion Gap 14 Blood Urea Nitrogen 75 H Creatinine 2.05 H Glucose Level 105 Calcium Level 8.8 Total Bilirubin 9.8 H Direct Bilirubin 6.10 H Indirect Bilirubin 3.7 H Aspartate Amino Transf (AST/SGOT) 100 H Alanine Aminotransferase (ALT/SGPT) 59 Alkaline Phosphatase 329 H Total Protein 6.3 Albumin 2.5 L Globulin 3.80 H Albumin/Globulin Ratio 0.65 Medications Medications Current Medications Multivitamins Therapeutic (Theragran) 1 tab DAILY PO Last administered on 09:32; Admin Dose 1 TAB; Start 02/06/17 at 09:00 Thiamine HCl (Vitamin B1) 100 mg DAILY PO Last administered on 02/23/17 09:32; Admin Dose 100 MG; Start 02/06/17 at 09:00 Lactulose (Enulose) 20 gm Q4 PRN PO CONSTIPATION Last administered on 17:07; Admin Dose 20 GM; Start 02/06/17 at 00:00 Pantoprazole (Protonix Tab) 40 mg DAILY@06 PO Last administered on 02/23/17 05: 55; Admin Dose 40 MG; Start 02/06/17 at 06:00 Rifaximin (Xifaxan) 550 mg BID PO Last administered on 02/23/17 09:33; Admin Dose 550 MG; Start 02/06/17 at 09:00 Folic Acid (Folic Acid) 1 mg DAILY PO Last administered on 02/23/17 09:33; Admin Dose 1 MG; Start 02/06/17 at 09:00 Aripiprazole (Abilify) 1 mg HS PO Last administered on 02/22/17 20:50; Admin Dose 1 MG; Start 02/06/17 at 21:00 Morphine Sulfate (morphine) 2 mg Q3H PRN IV PAIN Last administered on 02/23/17 01:40; Admin Dose 2 MG; Start 02/06/17 at 01:00 Citric Acid/ Sodium Citrate (Bicitra) 30 ml TID PO Last administered on 09:23; Admin Dose 30 ML; Start 02/06/17 at 21:00 Propranolol HCl (Inderal) 10 mg BID PO ; Start 02/10/17 at 21:00; Status Future Hold Ondansetron HCl (Zofran Inj) 4 mg Q6H PRN IV NAUSEA AND/OR VOMITING Last administered on 02/16/17 18:01; Admin Dose 4 MG; Start 02/12/17 at 09:30 Sodium Chloride (Nacl) 1 gm BID PO Last administered on 02/23/17 09:33; Admin Dose 1 GM; Start 02/16/17 at 21:00 Furosemide (Lasix) 20 mg DAILY IV Last administered on 02/22/17 08:24; Admin Dose 20 MG; Start 02/18/17 at 09:00 IV Flush (NS 10 ml) 10 ml PRN PRN IV IV PROTOCOL; Start 02/18/17 at 16:00 ALIVIA ALVAREZ Feb 23, 2017 14:18
[2017-02-23] MEDS ORDERED: FUROSEMIDE 20 MG INJ IV ONE (15:30)
--- NOTE | 2017-02-23 15:30 | CONS ---
Date/Time of Note Date/Time of Note DATE: 02/23/17 TIME: 15:27 Assessment/Plan Assessment/Plan Chief Complaint/Hosp Course The patient is a 56-year-old male patient with a history of alcoholic liver cirrhosis, hemophilia, admitted with hepatorenal syndrome-nephrology. No active bleeding. Hematology consulted due to history of hemophilia and thrombocytopenia. # Thrombocytopenia, likely related to alcoholic liver cirrhosis and splenomegaly - platelet count 79 at [place], now 30-60K. Unclear why platelet count decreasing, concern for possible sepsis with decreased BP, increased creatinine. Will check lactic acid. Will transfuse 1 unit platelets today given bleeding from PICC line. - Transfuse < 10, < 50 if bleeding, otherwise monitor - HIV screen positive, however HIV Antibody 1/2 confirm negative, probably false positive per ID. 4th generation HIV testing returned as non-reactive. Appreciate ID recs. - Hepatitis panel negative, unlikely DIC as prolongation of caogs and low fibrinogen likely related to liver disease. No need to give cryoprecipitate unless patient bleeding. - Abdominal US showed 1. Coarsened hepatic echotexture and suggested liver surface nodularity and mild common bile duct dilatation. - MRI Abdomen 02/08/17 showed 1. Cirrhosis without definite evidence of focal hepatic lesion. 2. Small ascites and splenomegaly. 3. Cholelithiasis with irregular gallbladder wall thickening may be related to chronic cholecystitis however cannot rule out underlying gallbladder mass lesion. 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 Kehinde Jimenez who informed me that he does not have a history of hemophilia but rather simply coagulopathy due to liver disease. However, the patient states that he was diagnosed in his 20s with hemophilia, prior to liver disease, diagnosed by Dr. Hu (now ) in [place]. 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 Factor IX low at 28%, difficult to determine whether related to liver disease, but even if patient does have mild hemophilia B it would be mild. Factor VIII level elevated 22. 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 If needs repeat paracentesis , can give further FFP and factor IX, plus vitamin K as needed, however patient declines at this time as he states prior paracentesis was painful. - Will give 7,000 units of Factor IX given bleeding from PICC line. Will give Vitamin K 5 mg x 3 days. Will hold off on FFP given fluid overload. . # Macrocytic anemia, MCV 101.6, Hgb 8.5 at [place] - Hgb 6.5 with MCV 99.0 on 02/07/17, s/p 2 units pRBCs now stable in 8-10 range. Transfuse < 8. s/p 1 unit pRBCs 02/16/17 for Hgb 7.7. s/p 1 unit pRBCs for symptomatic anemia with Hgb 8.0 on 02/20/17. Hgb today 7.7, will give 1 unit pRBCs. - iron panel with Fe 109, TIBC low at 125, %87, ferritin 1250 consistent with anemia of chronic inflammation, B12/folate/TSH SNL, homocysteine elevated at 29.9; methylmalonic acid normal at 118. Therefore, patient may benefit from folate supplementation, as increased homocysteine is tied to increased cardiovascular risk and folate administration may lower homocysteine though unclear whether decreases cardiovascular risk. Patient noted to already be on folate. LDH elevated, retic count inappropriately low; haptoglobin < 15 (though likely low due to liver disease) Case management request for auth to be obtained for outpatient follow-up with me or Dr. Naya Dawson Problems: Consultation Date/Type/Reason Admit Date/Time February 05, 2017 at 18:37 Initial Consult Date 02/06/17 Type of Consultation: Hematology Referring Provider: CARL GRANT MD 24 HR Interval Summary Free Text/Dictation Patient is lethargic and somnolent today because he received ativan 1 mg last night. He continues to have leaking blood from PICC line. Exam/Review of Systems Vital Signs Vitals Vital Signs Date Time Temp Pulse Resp B/P Pulse Ox O2 Delivery O2 Flow Rate FiO2 02/23/17 07:54 97.0 78 18 96/52 97 Intake and Output 02/22/17 02/22/17 02/23/17 15:00 23:00 07:00 Intake Total 700 ml 800 ml Output Total 1100 ml Balance -400 ml 800 ml Exam Constitutional: alert, oriented, well developed, jaunduced Head: normocephalic Eyes: icteric ENMT: nl external ears & nose Neck: non-tender Respiratory: clear to auscultation Cardiovascular: nl pulses Gastrointestinal: distended, ascites Musculoskeletal: +edema bilaterally Extremities: normal pulses, bruises Neurological: nl mental status, nl speech Results Result Diagram: 02/23/17 0500 02/23/17 0500 Results 24 hrs Laboratory Tests Test 02/23/17 05:00 White Blood Count 11.6 H Red Blood Count 2.36 L Hemoglobin 7.7 L Hematocrit 21.7 L Mean Corpuscular Volume 91.9 Mean Corpuscular Hemoglobin 32.6 Mean Corpuscular Hemoglobin Concent 35.5 Red Cell Distribution Width 18.2 H Platelet Count 30 L Mean Platelet Volume 13.3 H Neutrophils % 77.5 H Lymphocytes % 9.2 L Monocytes % 9.5 Eosinophils % 2.8 Basophils % 0.3 Nucleated Red Blood Cells % 0.0 Neutrophils # 9.0 H Lymphocytes # 1.1 Monocytes # 1.1 H Eosinophils # 0.3 Basophils # 0.0 Nucleated Red Blood Cells # 0.0 Sodium Level 125 L Potassium Level 3.5 Chloride Level 95 L Carbon Dioxide Level 20 L Anion Gap 14 Blood Urea Nitrogen 75 H Creatinine 2.05 H Glucose Level 105 Calcium Level 8.8 Total Bilirubin 9.8 H Direct Bilirubin 6.10 H Indirect Bilirubin 3.7 H Aspartate Amino Transf (AST/SGOT) 100 H Alanine Aminotransferase (ALT/SGPT) 59 Alkaline Phosphatase 329 H Total Protein 6.3 Albumin 2.5 L Globulin 3.80 H Albumin/Globulin Ratio 0.65 Medications Medications Current Medications Multivitamins Therapeutic (Theragran) 1 tab DAILY PO Last administered on t 09:32; Admin Dose 1 TAB; Start 02/06/17 at 09:00 Thiamine HCl (Vitamin B1) 100 mg DAILY PO Last administered on 02/23/17 09:32; Admin Dose 100 MG; Start 02/06/17 at 09:00 Lactulose (Enulose) 20 gm Q4 PRN PO CONSTIPATION Last administered on 17:07; Admin Dose 20 GM; Start 02/06/17 at 00:00 Pantoprazole (Protonix Tab) 40 mg DAILY@06 PO Last administered on 02/23/17 05: 55; Admin Dose 40 MG; Start 02/06/17 at 06:00 Rifaximin (Xifaxan) 550 mg BID PO Last administered on 02/23/17 09:33; Admin Dose 550 MG; Start 02/06/17 at 09:00 Folic Acid (Folic Acid) 1 mg DAILY PO Last administered on 02/23/17 09:33; Admin Dose 1 MG; Start 02/06/17 at 09:00 Aripiprazole (Abilify) 1 mg HS PO Last administered on 02/22/17 20:50; Admin Dose 1 MG; Start 02/06/17 at 21:00 Morphine Sulfate (morphine) 2 mg Q3H PRN IV PAIN Last administered on 02/23/17 01:40; Admin Dose 2 MG; Start 02/06/17 at 01:00 Citric Acid/ Sodium Citrate (Bicitra) 30 ml TID PO Last administered on 09:23; Admin Dose 30 ML; Start 02/06/17 at 21:00 Propranolol HCl (Inderal) 10 mg BID PO ; Start 02/10/17 at 21:00; Status Future Hold Ondansetron HCl (Zofran Inj) 4 mg Q6H PRN IV NAUSEA AND/OR VOMITING Last administered on 02/16/17 18:01; Admin Dose 4 MG; Start 02/12/17 at 09:30 Sodium Chloride (Nacl) 1 gm BID PO Last administered on 02/23/17 09:33; Admin Dose 1 GM; Start 02/16/17 at 21:00 Furosemide (Lasix) 20 mg DAILY IV Last administered on 02/22/17 08:24; Admin Dose 20 MG; Start 02/18/17 at 09:00 IV Flush 10 ml 10 ml PRN PRN IV IV PROTOCOL; Start 02/18/17 at 16:00 Phytonadione/ Dextrose (Vitamin K/D5W) 50.5 ml @ 101 mls/hr DAILY IVPB ; Start 02/23/17 at 15:30; Stop 02/26/17 at 15:29 TOABRAM MD Feb 23, 2017 15:30
[2017-02-23 16:16] LABS: THROMBIN TIME 21.4 SEC (13.8-19.1)
[2017-02-23 16:19] LABS: INR 2.91; PROTIME 30.8 Sec (12.2-14.2); PT RATIO 2.4
--- NOTE | 2017-02-23 16:36 | CONS ---
Date/Time of Note Date/Time of Note DATE: 02/23/17 TIME: 16:32 Assessment/Plan Assessment/Plan Additional Assessment/Plan 1. Hyponatremia likely secondary to decompensated liver cirrhosis. 2. no heaptorenal syndrome 3. Acute kidney injury, likely secondary to prerenal azotemia in the setting of decompensated liver cirrhosis. 4. 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 5. History of recurrent ascites, status post last paracentesis done 3 weeks ago , 1.6 liters of fluid was removed. 6. Acute hyperkalemia, possibly secondary to Bactrim.- now resolved PLAN: - pt is not a candidate for Tolvaptan due to elevated LFTs Na dropped to 125- on Na chloride tablet to 1 gram PO TID on IV lasix 20mg daily with holding parameters - BP runs low side,change lasix to PO 20mg daily , tertiary care center referral for liver transplant evaluation bicitra 30ml TID for metabolic acidosis will follow up Consultation Date/Type/Reason Admit Date/Time February 05, 2017 at 18:37 Initial Consult Date 02/06/17 Type of Consultation: NEPHROLOGY Referring Provider: CARL GRANT MD 24 HR Interval Summary Free Text/Dictation Cr bumped to 2.05, Na dropped to 125, afebrile, Exam/Review of Systems Vital Signs Vitals Vital Signs Date Time Temp Pulse Resp B/P Pulse Ox O2 Delivery O2 Flow Rate FiO2 02/23/17 07:54 97.0 78 18 96/52 97 Intake and Output 02/22/17 02/22/17 02/23/17 15:00 23:00 07:00 Intake Total 700 ml 800 ml Output Total 1100 ml Balance -400 ml 800 ml Results Result Diagram: 02/23/17 1530 02/23/17 0500 Results 24 hrs Laboratory Tests Test 02/23/17 05:00 02/23/17 15:30 White Blood Count 11.6 H Red Blood Count 2.36 L Hemoglobin 7.7 L Hematocrit 21.7 L Mean Corpuscular Volume 91.9 Mean Corpuscular Hemoglobin 32.6 Mean Corpuscular Hemoglobin Concent 35.5 Red Cell Distribution Width 18.2 H Platelet Count 30 L 29 #*L Mean Platelet Volume 13.3 H Neutrophils % 77.5 H Lymphocytes % 9.2 L Monocytes % 9.5 Eosinophils % 2.8 Basophils % 0.3 Nucleated Red Blood Cells % 0.0 Neutrophils # 9.0 H Lymphocytes # 1.1 Monocytes # 1.1 H Eosinophils # 0.3 Basophils # 0.0 Nucleated Red Blood Cells # 0.0 Sodium Level 125 L Potassium Level 3.5 Chloride Level 95 L Carbon Dioxide Level 20 L Anion Gap 14 Blood Urea Nitrogen 75 H Creatinine 2.05 H Glucose Level 105 Calcium Level 8.8 Total Bilirubin 9.8 H Direct Bilirubin 6.10 H Indirect Bilirubin 3.7 H Aspartate Amino Transf (AST/SGOT) 100 H Alanine Aminotransferase (ALT/SGPT) 59 Alkaline Phosphatase 329 H Total Protein 6.3 Albumin 2.5 L Globulin 3.80 H Albumin/Globulin Ratio 0.65 Prothrombin Time Pending Prothrombin Time Ratio 2.4 INR International Normalized Ratio 2.91 Activated Partial Thromboplast Time Pending Thrombin Time Pending Lactic Acid Level 1.5 Medications Medications Current Medications Multivitamins Therapeutic (Theragran) 1 tab DAILY PO Last administered on 09:32; Admin Dose 1 TAB; Start 02/06/17 at 09:00 Thiamine HCl (Vitamin B1) 100 mg DAILY PO Last administered on 02/23/17 09:32; Admin Dose 100 MG; Start 02/06/17 at 09:00 Lactulose (Enulose) 20 gm Q4 PRN PO CONSTIPATION Last administered on 17:07; Admin Dose 20 GM; Start 02/06/17 at 00:00 Pantoprazole (Protonix Tab) 40 mg DAILY@06 PO Last administered on 02/23/17 05: 55; Admin Dose 40 MG; Start 02/06/17 at 06:00 Rifaximin (Xifaxan) 550 mg BID PO Last administered on 02/23/17 09:33; Admin Dose 550 MG; Start 02/06/17 at 09:00 Folic Acid (Folic Acid) 1 mg DAILY PO Last administered on 02/23/17 09:33; Admin Dose 1 MG; Start 02/06/17 at 09:00 Aripiprazole (Abilify) 1 mg HS PO Last administered on 02/22/17 20:50; Admin Dose 1 MG; Start 02/06/17 at 21:00 Morphine Sulfate (morphine) 2 mg Q3H PRN IV PAIN Last administered on 02/23/17 01:40; Admin Dose 2 MG; Start 02/06/17 at 01:00 Citric Acid/ Sodium Citrate (Bicitra) 30 ml TID PO Last administered on 09:23; Admin Dose 30 ML; Start 02/06/17 at 21:00 Propranolol HCl (Inderal) 10 mg BID PO ; Start 02/10/17 at 21:00; Status Future Hold Ondansetron HCl (Zofran Inj) 4 mg Q6H PRN IV NAUSEA AND/OR VOMITING Last administered on 02/16/17 18:01; Admin Dose 4 MG; Start 02/12/17 at 09:30 Sodium Chloride (Nacl) 1 gm BID PO Last administered on 02/23/17 09:33; Admin Dose 1 GM; Start 02/16/17 at 21:00 Furosemide (Lasix) 20 mg DAILY IV Last administered on 02/22/17 08:24; Admin Dose 20 MG; Start 02/18/17 at 09:00 IV Flush 10 ml 10 ml PRN PRN IV IV PROTOCOL; Start 02/18/17 at 16:00 Phytonadione/ Dextrose (Vitamin K/D5W) 50.5 ml @ 101 mls/hr DAILY IVPB ; Start 02/23/17 at 15:30; Stop 02/26/17 at 15:29 Factor IX (Pha) (Alphanine Sd) 2,000 unit ONCE ONCE IV ; Start 02/23/17 at 18:00 ; Stop 02/23/17 at 18:01 ELLIOT PARRA MD Feb 23, 2017 16:36
[2017-02-23 16:46] LABS: PARTIAL THROMBOPLASTIN TIME 61.3 Sec (25.0-35.0)
[2017-02-23] MEDS: PHYTONADIONE 5 MG in DEXTROSE 5% 50 ML IVPB SCH (17:30)
[2017-02-23] MEDS ORDERED: FACTOR IX IV ONE (18:00)
--- NOTE | 2017-02-23 20:19 | CONS ---
Date/Time of Note Date/Time of Note DATE: 02/23/17 TIME: 20:14 Assessment/Plan Assessment/Plan Additional Assessment/Plan 1. Hyponatremia secondary to liver cirrhosis.persistent NA125 2. Acute kidney injury without heptorenal syndrome, likely secondary to prerenal azotemia in the setting of decompensated liver cirrhosis. 3. 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 History of recurrent ascites, status post last paracentesis done 3 weeks ago , 1.6 liters of fluid was removed. 5. Acute hyperkalemia, possibly secondary to Bactrim. 6. H/o ascites, status post a paracentesis 3 L of fluid was removed 7. Pedal edema 4+ 8. False-positive HIV 9.thrombocytopenia PLAN: - EtOH cessation counseled - [facility]iary [facility] referral for liver transplant evaluation if patient is not an active drinker - continue lactulose and rifaximen for hepatic encephalopathy - continue low dose lasix, titrate as tolerated by kidney function P.o. fluid restriction prognosis guarded Consultation Date/Type/Reason Admit Date/Time February 05, 2017 at 18:37 Initial Consult Date 02/06/17 Type of Consultation: NEPHROLOGY Referring Provider: CARL GRANT MD 24 HR Interval Summary Free Text/Dictation swelling in lower extremity Exam/Review of Systems Vital Signs Vitals Vital Signs Date Time Temp Pulse Resp B/P Pulse Ox O2 Delivery O2 Flow Rate FiO2 02/23/17 07:54 97.0 78 18 96/52 97 Intake and Output 02/22/17 02/22/17 02/23/17 15:00 23:00 07:00 Intake Total 700 ml 800 ml Output Total 1100 ml Balance -400 ml 800 ml Exam Cardiovascular: nl pulses, regular rate and rhythm Gastrointestinal: nl liver, spleen, non-tender, soft Extremities: pitting pedal edema Neurological: MATHEMATICS PROFESSOR II-XII intact, nl mental status, nl speech, nl strength Results Result Diagram: 02/23/17 1530 02/23/17 0500 Results 24 hrs Laboratory Tests Test 02/23/17 05:00 02/23/17 15:30 White Blood Count 11.6 H Red Blood Count 2.36 L Hemoglobin 7.7 L Hematocrit 21.7 L Mean Corpuscular Volume 91.9 Mean Corpuscular Hemoglobin 32.6 Mean Corpuscular Hemoglobin Concent 35.5 Red Cell Distribution Width 18.2 H Platelet Count 30 L 29 #*L Mean Platelet Volume 13.3 H Neutrophils % 77.5 H Lymphocytes % 9.2 L Monocytes % 9.5 Eosinophils % 2.8 Basophils % 0.3 Nucleated Red Blood Cells % 0.0 Neutrophils # 9.0 H Lymphocytes # 1.1 Monocytes # 1.1 H Eosinophils # 0.3 Basophils # 0.0 Nucleated Red Blood Cells # 0.0 Sodium Level 125 L Potassium Level 3.5 Chloride Level 95 L Carbon Dioxide Level 20 L Anion Gap 14 Blood Urea Nitrogen 75 H Creatinine 2.05 H Glucose Level 105 Calcium Level 8.8 Total Bilirubin 9.8 H Direct Bilirubin 6.10 H Indirect Bilirubin 3.7 H Aspartate Amino Transf (AST/SGOT) 100 H Alanine Aminotransferase (ALT/SGPT) 59 Alkaline Phosphatase 329 H Total Protein 6.3 Albumin 2.5 L Globulin 3.80 H Albumin/Globulin Ratio 0.65 Prothrombin Time 30.8 H Prothrombin Time Ratio 2.4 INR International Normalized Ratio 2.91 Activated Partial Thromboplast Time 61.3 H Thrombin Time 21.4 H Lactic Acid Level 1.5 Medications Medications Current Medications Multivitamins Therapeutic (Theragran) 1 tab DAILY PO Last administered on 08:22; Admin Dose 1 TAB; Start 02/06/17 at 09:00 Thiamine HCl (Vitamin B1) 100 mg DAILY PO Last administered on 02/22/17 08:22; Admin Dose 100 MG; Start 02/06/17 at 09:00 Lactulose (Enulose) 20 gm Q4 PRN PO CONSTIPATION Last administered on 17:07; Admin Dose 20 GM; Start 02/06/17 at 00:00 Pantoprazole (Protonix Tab) 40 mg DAILY@06 PO Last administered on 02/23/17 05: 55; Admin Dose 40 MG; Start 02/06/17 at 06:00 Rifaximin (Xifaxan) 550 mg BID PO Last administered on 02/22/17 20:50; Admin Dose 550 MG; Start 02/06/17 at 09:00 Folic Acid (Folic Acid) 1 mg DAILY PO Last administered on 02/22/17 08:22; Admin Dose 1 MG; Start 02/06/17 at 09:00 Aripiprazole (Abilify) 1 mg HS PO Last administered on 02/22/17 20:50; Admin Dose 1 MG; Start 02/06/17 at 21:00 Morphine Sulfate (morphine) 2 mg Q3H PRN IV PAIN Last administered on 02/23/17 01:40; Admin Dose 2 MG; Start 02/06/17 at 01:00 Citric Acid/ Sodium Citrate (Bicitra) 30 ml TID PO Last administered on 09:23; Admin Dose 30 ML; Start 02/06/17 at 21:00 Propranolol HCl (Inderal) 10 mg BID PO ; Start 02/10/17 at 21:00; Status Future Hold Ondansetron HCl (Zofran Inj) 4 mg Q6H PRN IV NAUSEA AND/OR VOMITING Last administered on 02/16/17 18:01; Admin Dose 4 MG; Start 02/12/17 at 09:30 Sodium Chloride (Nacl) 1 gm BID PO Last administered on 02/22/17 20:50; Admin Dose 1 GM; Start 02/16/17 at 21:00 IV Flush 10 ml 10 ml PRN PRN IV IV PROTOCOL; Start 02/18/17 at 16:00 Phytonadione/ Dextrose (Vitamin K/D5W) 50.5 ml @ 101 mls/hr DAILY IVPB Last administered on 02/23/17 17:30; Admin Dose 101 MLS/HR; Start 02/23/17 at 15:30; Stop 02/26/17 at 15:29 Furosemide (Lasix) 20 mg DAILY PO ; Start 02/24/17 at 09:00 IGNACIA HERR MD Feb 23, 2017 20:19
[2017-02-23 20:45] VITALS: BP 133/72; RESP 20
[2017-02-23] MEDS: ARIPIPRAZOLE 2 MG TAB PO SCH (20:50)
[2017-02-24] MEDS: PANTOPRAZOLE (EC) 40 MG TAB PO SCH (05:30)
[2017-02-24 07:29] LABS: ADD SCAN DIFF NO
[2017-02-24 07:36] LABS: ABNORMAL IP MESSAGE 1; BASOPHILS % 0.1 % (0.0-2.0); EOSINOPHILS # 0.1 10^3/ul (0.0-0.5); EOSINOPHILS % 0.9 % (0.0-7.0); HEMATOCRIT 23.7 % (42.0-52.0); HEMOGLOBIN 8.7 g/dl (14.0-18.0); LYMPHOCYTES # 0.7 10^3/ul (0.8-2.9); LYMPHOCYTES % 4.8 % (15.0-51.0); MEAN CORPUSCULAR HEMOGLOBIN 32.3 pg (29.0-33.0); MEAN CORPUSCULAR HGB CONC 36.7 g/dl (32.0-37.0); MEAN CORPUSCULAR VOLUME 88.1 fl (82.0-101.0); MEAN PLATELET VOLUME 10.7 fl (7.4-10.4); MONOCYTE # 0.9 10^3/ul (0.3-0.9); MONOCYTES % 6.5 % (0.0-11.0); NEUTROPHIL # 12.3 10^3/ul (1.6-7.5); NEUTROPHILS % 87.2 % (39.0-77.0); PLATELET COUNT 78 10^3/UL (140-415); RED BLOOD COUNT 2.69 10^6/ul (4.70-6.10); RED CELL DISTRIBUTION WIDTH 18.6 % (11.5-14.5); WHITE BLOOD COUNT 14.1 10^3/ul (4.8-10.8)
[2017-02-24 07:48] LABS: INR 2.88; PROTIME 30.6 Sec (12.2-14.2); PT RATIO 2.4
[2017-02-24 07:49] LABS: CALCIUM 9.6 mg/dl (8.4-10.2); CREATININE 2.44 mg/dl (0.61-1.24); POTASSIUM 3.9 mmol/L (3.5-5.1)
[2017-02-24 07:53] LABS: PARTIAL THROMBOPLASTIN TIME 51.2 Sec (25.0-35.0)
[2017-02-24] MEDS ORDERED: RIFAXIMIN 550 MG TAB PO SCH (09:00)
[2017-02-24] MEDS ORDERED: LACTULOSE 30ML CUP PO SCH (09:00)
[2017-02-24] MEDS: CITRIC ACID/SODIUM CITRATE 15 ML CUP PO SCH ×3 (09:05→21:00)
[2017-02-24] MEDS: PHYTONADIONE 5 MG in DEXTROSE 5% 50 ML IVPB SCH (09:05)
[2017-02-24] MEDS: LACTULOSE 30ML CUP PO SCH ×2 (09:06→12:38)
[2017-02-24] MEDS: THIAMINE 100 MG TAB PO SCH (09:06)
[2017-02-24] MEDS: RIFAXIMIN 550 MG TAB PO SCH ×2 (09:07→21:00)
[2017-02-24] MEDS: MULTIVITAMINS THERAPEUTIC TAB PO SCH (09:07)
[2017-02-24] MEDS: FUROSEMIDE 20 MG TAB PO SCH (09:07)
[2017-02-24] MEDS: FOLIC ACID 1 MG TAB PO SCH (09:07)
[2017-02-24] MEDS: SODIUM CHLORIDE 1 GM TAB PO SCH ×2 (09:08→21:02)
--- NOTE | 2017-02-24 09:34 | CONS ---
Date/Time of Note Date/Time of Note DATE: 02/24/17 TIME: 09:29 Assessment/Plan Assessment/Plan Additional Assessment/Plan 1. Hyponatremia likely secondary to decompensated liver cirrhosis. 2. Possible hepatorenal syndrome due to decompensated liver cirrhosis 3. Acute kidney injury, likely secondary to decompensated liver cirrhosis. 4. 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 5. History of recurrent ascites 6. Acute hyperkalemia, possibly secondary to Bactrim.- now resolved PLAN: - pt is not a candidate for Tolvaptan due to elevated LFTs Na 125- on Na chloride tablet to 1 gram PO TID lasix was changed to PO- pt renal function has been gradullay deteriorating, he made good urine out put 1.1 L yesterday but his Overall prognosis is very poor , tertiary [facility] center referral for liver transplant evaluation - if he is not liver transplant candidate due to any other reason then he is not a dialysis candidate due to his overall poor prognosis. palliative care consutl to discuss goals of care lactulose for high ammonia bicitra 30ml TID for metabolic acidosis will follow up Consultation Date/Type/Reason Admit Date/Time February 05, 2017 at 18:37 Initial Consult Date 02/06/17 Type of Consultation: NEPHROLOGY Referring Provider: CARL GRANT MD 24 HR Interval Summary Free Text/Dictation pt received lasix IV after PRBC transfusion, BUN/Cr slightly trending up Exam/Review of Systems Vital Signs Vitals Vital Signs Date Time Temp Pulse Resp B/P Pulse Ox O2 Delivery O2 Flow Rate FiO2 02/23/17 20:45 98.3 83 20 133/72 98 Intake and Output 02/23/17 02/23/17 02/24/17 15:00 23:00 07:00 Intake Total 520.5 ml 700 ml Output Total 200 ml Balance 520.5 ml 500 ml Exam Constitutional: alert,jaunduced but intermittently lethargic Respiratory: decreased BS at bases, basilar crackles Cardiovascular: S1 S2 RRR Gastrointestinal: distended, ascites Musculoskeletal: nl extremities to inspection Extremities: normal pulses, bruises, 2+ edema Neurological: intermittently confused with tense ascites Results Result Diagram: 02/24/17 0645 02/24/17 0645 Results 24 hrs Laboratory Tests Test 02/23/17 15:30 02/24/17 06:45 Platelet Count 29 #*L 78 #L Prothrombin Time 30.8 H 30.6 H Prothrombin Time Ratio 2.4 2.4 INR International Normalized Ratio 2.91 2.88 Activated Partial Thromboplast Time 61.3 H 51.2 H Thrombin Time 21.4 H Lactic Acid Level 1.5 White Blood Count 14.1 #H Red Blood Count 2.69 L Hemoglobin 8.7 L Hematocrit 23.7 L Mean Corpuscular Volume 88.1 Mean Corpuscular Hemoglobin 32.3 Mean Corpuscular Hemoglobin Concent 36.7 Red Cell Distribution Width 18.6 H Mean Platelet Volume 10.7 H Neutrophils % 87.2 H Lymphocytes % 4.8 L Monocytes % 6.5 Eosinophils % 0.9 Basophils % 0.1 Nucleated Red Blood Cells % 0.0 Neutrophils # 12.3 H Lymphocytes # 0.7 L Monocytes # 0.9 Eosinophils # 0.1 Basophils # 0.0 Nucleated Red Blood Cells # 0.0 Sodium Level 125 L Potassium Level 3.9 Chloride Level 94 L Carbon Dioxide Level 18 L Anion Gap 17 H Blood Urea Nitrogen 85 H Creatinine 2.44 H Glucose Level 90 Calcium Level 9.6 Ammonia 133 #H Medications Medications Current Medications Multivitamins Therapeutic (Theragran) 1 tab DAILY PO Last administered on 09:07; Admin Dose 1 TAB; Start 02/06/17 at 09:00 Thiamine HCl (Vitamin B1) 100 mg DAILY PO Last administered on 02/24/17 09:06; Admin Dose 100 MG; Start 02/06/17 at 09:00 Pantoprazole (Protonix Tab) 40 mg DAILY@06 PO Last administered on 02/24/17 05: 30; Admin Dose 40 MG; Start 02/06/17 at 06:00 Rifaximin (Xifaxan) 550 mg BID PO Last administered on 02/24/17 09:07; Admin Dose 550 MG; Start 02/06/17 at 09:00 Folic Acid (Folic Acid) 1 mg DAILY PO Last administered on 02/24/17 09:07; Admin Dose 1 MG; Start 02/06/17 at 09:00 Aripiprazole (Abilify) 1 mg HS PO Last administered on 02/23/17 20:50; Admin Dose 1 MG; Start 02/06/17 at 21:00 Morphine Sulfate (morphine) 2 mg Q3H PRN IV PAIN Last administered on 02/23/17 01:40; Admin Dose 2 MG; Start 02/06/17 at 01:00 Citric Acid/ Sodium Citrate (Bicitra) 30 ml TID PO Last administered on 09:05; Admin Dose 30 ML; Start 02/06/17 at 21:00 Propranolol HCl (Inderal) 10 mg BID PO ; Start 02/10/17 at 21:00; Status Future Hold Ondansetron HCl (Zofran Inj) 4 mg Q6H PRN IV NAUSEA AND/OR VOMITING Last administered on 02/16/17 18:01; Admin Dose 4 MG; Start 02/12/17 at 09:30 Sodium Chloride (Nacl) 1 gm BID PO Last administered on 02/24/17 09:08; Admin Dose 1 GM; Start 02/16/17 at 21:00 IV Flush 10 ml 10 ml PRN PRN IV IV PROTOCOL; Start 02/18/17 at 16:00 Phytonadione/ Dextrose (Vitamin K/D5W) 50.5 ml @ 101 mls/hr DAILY IVPB Last administered on 02/24/17 09:05; Admin Dose 101 MLS/HR; Start 02/23/17 at 15:30; Stop 02/26/17 at 15:29 Furosemide (Lasix) 20 mg DAILY PO Last administered on 02/24/17 09:07; Admin Dose 20 MG; Start 02/24/17 at 09:00 Lactulose (Enulose) 30 gm Q6 PO Last administered on 02/24/17 09:06; Admin Dose 30 GM; Start 02/24/17 at 09:00 ELLIOT PARRA MD Feb 24, 2017 09:34
[2017-02-24 09:40] VITALS: BP 112/56; RESP 19
--- NOTE | 2017-02-24 12:38 | CONS ---
Date/Time of Note Date/Time of Note DATE: 02/24/17 TIME: 12:35 Assessment/Plan Assessment/Plan Chief Complaint/Hosp Course IMPRESSION: 1. Exertional chest pain, assess for acute coronary syndrome.-negative troponin x 3. EF >65% by echo this admit. CP resolved 2. Dyspnea on exertion, assess for congestive heart failure.-increased BNP,. 3. Abnormal electrocardiogram, assess for acute coronary syndrome.-negative troponin x 3/NL EF by echo >65% this admit 4. Liver cirrhosis. 5. Nausea, vomiting. 6. ETOH abuse. 7. Polysubstance abuse. 8. Human immunodeficiency virus positivity. 9. Renal failure-worsening 10. Hyponatremia. 11. Coagulopathy. 12. Anemia-worsening 13. Thrombocytopenia. 14.Hypotension-intermittent/labile 15.Hyponatremia REcc: -Continue abx's and f/u cx data -Continue gentle diuresis following NA and BP closely as tolerated only given worsening renal function -Continue salt tabs -Holding propranolol given hypotension -Continue PPI -Continue lactulose Problems: Consultation Date/Type/Reason Admit Date/Time February 05, 2017 at 18:37 Initial Consult Date 02/07/17 Type of Consultation: Cardiology Reason for Consultation CHF/chest pain Referring Provider: CARL GRANT MD Exam/Review of Systems Vital Signs Vitals Vital Signs Date Time Temp Pulse Resp B/P Pulse Ox O2 Delivery O2 Flow Rate FiO2 02/24/17 09:40 98.0 95 19 112/56 98 Intake and Output 02/23/17 02/23/17 02/24/17 15:00 23:00 07:00 Intake Total 520.5 ml 700 ml Output Total 200 ml Balance 520.5 ml 500 ml Exam Review of Systems: CONSTITUTIONAL: No fevers, chills. PULMONARY: No sob CARDIOVASCULAR: No chest pain/palpitations GASTROINTESTINAL: No nausea/vomiting. GENITOURINARY: No hematuria/dysuria. MUSCULOSKELETAL: No myagias/arthalgias. PSYCHIATRIC: The patient denies depression. NEUROLOGIC: No weakness Constitutional: alert Psych: no complaints Head: normocephalic ENMT: mucosa pink and moist Neck: jvd (9-10 cm water), supple Respiratory: diminished breath sounds (at bases/B) Cardiovascular: regular rate and rhythm Gastrointestinal: non-tender, soft Musculoskeletal: muscle tone (normal) Extremities: pitting pedal edema (Bilateral) Results Result Diagram: 02/24/17 0645 02/24/17 0645 Results 24 hrs Laboratory Tests Test 02/23/17 15:30 02/24/17 06:45 Platelet Count 29 #*L 78 #L Prothrombin Time 30.8 H 30.6 H Prothrombin Time Ratio 2.4 2.4 INR International Normalized Ratio 2.91 2.88 Activated Partial Thromboplast Time 61.3 H 51.2 H Thrombin Time 21.4 H Lactic Acid Level 1.5 White Blood Count 14.1 #H Red Blood Count 2.69 L Hemoglobin 8.7 L Hematocrit 23.7 L Mean Corpuscular Volume 88.1 Mean Corpuscular Hemoglobin 32.3 Mean Corpuscular Hemoglobin Concent 36.7 Red Cell Distribution Width 18.6 H Mean Platelet Volume 10.7 H Neutrophils % 87.2 H Lymphocytes % 4.8 L Monocytes % 6.5 Eosinophils % 0.9 Basophils % 0.1 Nucleated Red Blood Cells % 0.0 Neutrophils # 12.3 H Lymphocytes # 0.7 L Monocytes # 0.9 Eosinophils # 0.1 Basophils # 0.0 Nucleated Red Blood Cells # 0.0 Sodium Level 125 L Potassium Level 3.9 Chloride Level 94 L Carbon Dioxide Level 18 L Anion Gap 17 H Blood Urea Nitrogen 85 H Creatinine 2.44 H Glucose Level 90 Calcium Level 9.6 Ammonia 133 #H Medications Medications Current Medications Multivitamins Therapeutic (Theragran) 1 tab DAILY PO Last administered on 09:07; Admin Dose 1 TAB; Start 02/06/17 at 09:00 Thiamine HCl (Vitamin B1) 100 mg DAILY PO Last administered on 02/24/17 09:06; Admin Dose 100 MG; Start 02/06/17 at 09:00 Pantoprazole (Protonix Tab) 40 mg DAILY@06 PO Last administered on 02/24/17 05: 30; Admin Dose 40 MG; Start 02/06/17 at 06:00 Rifaximin (Xifaxan) 550 mg BID PO Last administered on 02/24/17 09:07; Admin Dose 550 MG; Start 02/06/17 at 09:00 Folic Acid (Folic Acid) 1 mg DAILY PO Last administered on 02/24/17 09:07; Admin Dose 1 MG; Start 02/06/17 at 09:00 Aripiprazole (Abilify) 1 mg HS PO Last administered on 02/23/17 20:50; Admin Dose 1 MG; Start 02/06/17 at 21:00 Morphine Sulfate (morphine) 2 mg Q3H PRN IV PAIN Last administered on 02/23/17 01:40; Admin Dose 2 MG; Start 02/06/17 at 01:00 Citric Acid/ Sodium Citrate (Bicitra) 30 ml TID PO Last administered on 09:05; Admin Dose 30 ML; Start 02/06/17 at 21:00 Propranolol HCl (Inderal) 10 mg BID PO ; Start 02/10/17 at 21:00; Status Future Hold Ondansetron HCl (Zofran Inj) 4 mg Q6H PRN IV NAUSEA AND/OR VOMITING Last administered on 02/16/17 18:01; Admin Dose 4 MG; Start 02/12/17 at 09:30 Sodium Chloride (Nacl) 1 gm BID PO Last administered on 02/24/17 09:08; Admin Dose 1 GM; Start 02/16/17 at 21:00 IV Flush 10 ml 10 ml PRN PRN IV IV PROTOCOL; Start 02/18/17 at 16:00 Phytonadione/ Dextrose (Vitamin K/D5W) 50.5 ml @ 101 mls/hr DAILY IVPB Last administered on 02/24/17 09:05; Admin Dose 101 MLS/HR; Start 02/23/17 at 15:30; Stop 02/26/17 at 15:29 Furosemide (Lasix) 20 mg DAILY PO Last administered on 02/24/17 09:07; Admin Dose 20 MG; Start 02/24/17 at 09:00 Lactulose (Enulose) 30 gm Q6 PO Last administered on 02/24/17 09:06; Admin Dose 30 GM; Start 02/24/17 at 09:00 SHAY COTTRELL Feb 24, 2017 12:38
[2017-02-24 13:00] VITALS: BP 124/57; PULSE 102; RESP 18
[2017-02-24 13:15] VITALS: BP 99/56; PULSE 93; RESP 18
[2017-02-24 15:10] VITALS: BP 99/56; PULSE 93; RESP 18
[2017-02-24 15:27] LABS: AADO2 Arterial 58.4 mmHg (7.0-24.0); Allen Test ACCEPTAB; Arterial Base Excess -6.9 mmol/L (-3.0-3); Arterial Fraction of Oxyhgb 96.1 % (93.0-99.0); Arterial MetHb 0.5 % (0.0-1.5); Arterial Total Hemglobin 8.9 g/dl (12.0-18.0); MODE nsal cannula
[2017-02-24 16:01] LABS: ADD SCAN DIFF NO
[2017-02-24 16:05] LABS: ABNORMAL IP MESSAGE 1; HEMATOCRIT 21.3 % (42.0-52.0); HEMOGLOBIN 8.1 g/dl (14.0-18.0); MEAN CORPUSCULAR HEMOGLOBIN 33.3 pg (29.0-33.0); MEAN CORPUSCULAR VOLUME 87.7 fl (82.0-101.0); MEAN PLATELET VOLUME 11.2 fl (7.4-10.4); PLATELET COUNT 60 10^3/UL (140-415); RED BLOOD COUNT 2.43 10^6/ul (4.70-6.10); RED CELL DISTRIBUTION WIDTH 18.4 % (11.5-14.5); WHITE BLOOD COUNT 25.1 10^3/ul (4.8-10.8)
--- NOTE | 2017-02-24 16:20 | RADRPT ---
PROCEDURE: CHEST 1VW CLINICAL INDICATION: Altered level of consciousness TECHNIQUE: Single frontal view of the chest was obtained COMPARISON: 02/18/2017 FINDINGS: Stable left PICC. The cardiac size is normal. Aortic vascular calcifications are demonstrated. There is mild pulmonary vascular congestion. The lungs are otherwise clear. No consolidation, effusion, or pneumothorax. Mild degenerative changes of the visualized osseous structures are visualized. IMPRESSION: 1. Taking slight technique differences into account, there is no significant change from prior study . 2. Atherosclerosis. 3. Mild pulmonary vascular congestion. RPTAT:PP .Troy Barillas MD, Date Time Electronically viewed and signed by .Troy Barillas MD, on 02/24/2017 16:20 .V/
[2017-02-24 16:22] LABS: CALCIUM 9.3 mg/dl (8.4-10.2); CREATININE 2.78 mg/dl (0.61-1.24)
--- NOTE | 2017-02-24 16:41 | CONS ---
Date/Time of Note Date/Time of Note DATE: 02/24/17 TIME: 16:40 Assessment/Plan Assessment/Plan Chief Complaint/Hosp Course false positive initial HIV screen (positive by an initial screen, negative by a confirmatory antibody), HIV 1 viral load was undetectable twice, 4th generation HIV Ag/Ab combination test was unreactive. Pt denies a trip to or living in the parts of world endemic for HIV 2. 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 Pt has not received blood transfusions or blood products in the past - Hyponatremia likely secondary to cirrhosis - Acute on chronic anemia requiring blood transfusion - Coagulopathy due to liver disease - Thrombocytopenia - Hyperammonemia - AGATA - Portal hypertension - Cholelithiasis - Recurrent ascites s/p paracentesis ~4 weeks ago with 1.6 L removed, repeat paracentesis on 02/17/2017 s/p 3 L removal - S/p hyperkalemia - H/o alcoholism - H/o substance abuse - clinically worsening recommendations: - pardo cx - procalc - lactic acid - empiri linezolid/meropenem Problems: Consultation Date/Type/Reason Admit Date/Time February 05, 2017 at 18:37 Initial Consult Date 02/06/17 Type of Consultation: id Referring Provider: CARL GRANT MD Exam/Review of Systems Vital Signs Vitals Vital Signs Date Time Temp Pulse Resp B/P Pulse Ox O2 Delivery O2 Flow Rate FiO2 02/24/17 13:00 102 18 124/57 100 Nasal Cannula 2.0 02/24/17 09:40 98.0 Intake and Output 02/23/17 02/23/17 02/24/17 15:00 23:00 07:00 Intake Total 520.5 ml 700 ml Output Total 200 ml Balance 520.5 ml 500 ml Results Result Diagram: 02/24/17 1541 02/24/17 1541 Results 24 hrs Laboratory Tests Test 02/24/17 06:45 02/24/17 15:06 02/24/17 15:10 02/24/17 15:41 White Blood Count 14.1 #H 25.1 #H Red Blood Count 2.69 L 2.43 L Hemoglobin 8.7 L 8.1 L Hematocrit 23.7 L 21.3 L Mean Corpuscular Volume 88.1 87.7 Mean Corpuscular Hemoglobin 32.3 33.3 H Mean Corpuscular Hemoglobin Concent 36.7 38.0 H Red Cell Distribution Width 18.6 H 18.4 H Platelet Count 78 #L 60 #L Mean Platelet Volume 10.7 H 11.2 H Neutrophils % 87.2 H Lymphocytes % 4.8 L Monocytes % 6.5 Eosinophils % 0.9 Basophils % 0.1 Nucleated Red Blood Cells % 0.0 Neutrophils # 12.3 H Lymphocytes # 0.7 L Monocytes # 0.9 Eosinophils # 0.1 Basophils # 0.0 Nucleated Red Blood Cells # 0.0 Prothrombin Time 30.6 H Prothrombin Time Ratio 2.4 INR International Normalized Ratio 2.88 Activated Partial Thromboplast Time 51.2 H Sodium Level 125 L 123 L Potassium Level 3.9 4.0 Chloride Level 94 L 94 L Carbon Dioxide Level 18 L 17 L Anion Gap 17 H 16 Blood Urea Nitrogen 85 H 88 H Creatinine 2.44 H 2.78 H Glucose Level 90 90 Calcium Level 9.6 9.3 Ammonia 133 #H 95 H Blood Gas Specimen Source Blood arterial Arterial Blood Date Drawn 02/24/2017 3:20:00 PM Arterial Blood pH (Temp corrected) 7.446 Arterial Blood pCO2 (Temp correct) 23.8 L Arterial Blood pO2 (Temp corrected) 106.0 H Arterial Blood HCO3 16.0 L Arterial Blood Base Excess -6.9 L Arterial Blood Oxygen Saturation 97.6 Martínez Test ACCEPTAB Arterial Blood Gas Puncture Site Left Radial Arterial Blood Carboxyhemoglobin 1.0 Arterial Blood Methemoglobin 0.5 Blood Gas A-a O2 Differential 58.4 H Oxyhemoglobin Percent 96.1 Total Hemoglobin 8.9 L Blood Gas Temperature 37.0 Blood Gas Modality nsal cannula FiO2 27.0 Blood Gas Notified Whom jmd Blood Gas Notified Time 02/24/2017 3:27:41 PM Bedside Glucose 100 Medications Medications Current Medications Multivitamins Therapeutic (Theragran) 1 tab DAILY PO Last administered on 09:07; Admin Dose 1 TAB; Start 02/06/17 at 09:00 Thiamine HCl (Vitamin B1) 100 mg DAILY PO Last administered on 02/24/17 09:06; Admin Dose 100 MG; Start 02/06/17 at 09:00 Pantoprazole (Protonix Tab) 40 mg DAILY@06 PO Last administered on 02/24/17 05: 30; Admin Dose 40 MG; Start 02/06/17 at 06:00 Rifaximin (Xifaxan) 550 mg BID PO Last administered on 02/24/17 09:07; Admin Dose 550 MG; Start 02/06/17 at 09:00 Folic Acid (Folic Acid) 1 mg DAILY PO Last administered on 02/24/17 09:07; Admin Dose 1 MG; Start 02/06/17 at 09:00 Aripiprazole (Abilify) 1 mg HS PO Last administered on 02/23/17 20:50; Admin Dose 1 MG; Start 02/06/17 at 21:00 Morphine Sulfate (morphine) 2 mg Q3H PRN IV PAIN Last administered on 02/23/17 01:40; Admin Dose 2 MG; Start 02/06/17 at 01:00 Citric Acid/ Sodium Citrate (Bicitra) 30 ml TID PO Last administered on 12:38; Admin Dose 30 ML; Start 02/06/17 at 21:00 Propranolol HCl (Inderal) 10 mg BID PO ; Start 02/10/17 at 21:00; Status Future Hold Ondansetron HCl (Zofran Inj) 4 mg Q6H PRN IV NAUSEA AND/OR VOMITING Last administered on 02/16/17 18:01; Admin Dose 4 MG; Start 02/12/17 at 09:30 Sodium Chloride (Nacl) 1 gm BID PO Last administered on 02/24/17 09:08; Admin Dose 1 GM; Start 02/16/17 at 21:00 IV Flush 10 ml 10 ml PRN PRN IV IV PROTOCOL; Start 02/18/17 at 16:00 Phytonadione/ Dextrose (Vitamin K/D5W) 50.5 ml @ 101 mls/hr DAILY IVPB Last administered on 02/24/17 09:05; Admin Dose 101 MLS/HR; Start 02/23/17 at 15:30; Stop 02/26/17 at 15:29 Furosemide (Lasix) 20 mg DAILY PO Last administered on 02/24/17 09:07; Admin Dose 20 MG; Start 02/24/17 at 09:00 Lactulose (Lactulose Enema) 100 ml Q6 [place] ; Start 02/24/17 at 18:00 XAVI GARCES MD Feb 24, 2017 16:41
[2017-02-24 16:58] LABS: EOSINOPHILS # 0.3 10^3/ul (0.0-0.5); LYMPHOCYTES # 0.3 10^3/ul (0.8-2.9); MONOCYTE # 0.5 10^3/ul (0.3-0.9); NEUTROPHIL # 22.6 10^3/ul (1.6-7.5)
[2017-02-24 16:59] LABS: ANISOCYTOSIS 1+; POIKILOCYTOSIS 1+
[2017-02-24 17:00] LABS: BURR CELLS FEW; SCHISTOCYTES OCCASIONAL; SPHEROCYTES FEW
[2017-02-24 17:01] LABS: ACANTHOCYTES FEW
[2017-02-24 17:02] LABS: PLATELET ESTIMATE PLT APPEAR DECREASED; PLATELETS CLUMPS FEW
[2017-02-24] MEDS ORDERED: LACTULOSE 30ML CUP PR SCH (18:00)
[2017-02-24] MEDS: LACTULOSE ENEMA 1,000 ML BTL PR SCH ×2 (18:03→23:53)
[2017-02-24] MEDS: LINEZOLID 600 MG/D5W (PMX) 300 ML IVPB SCH (18:04)
--- NOTE | 2017-02-24 19:19 | CONS ---
Date/Time of Note Date/Time of Note DATE: 02/24/17 TIME: 19:10 Assessment/Plan Assessment/Plan Chief Complaint/Hosp Course The patient is a 56-year-old male patient with a history of alcoholic liver cirrhosis, hemophilia, admitted with hepatorenal syndrome-nephrology. Hematology consulted due to history of hemophilia and thrombocytopenia. Now with altered mental status, worsening liver/renal failure, anasarca, possible infection. # Thrombocytopenia, likely related to alcoholic liver cirrhosis and splenomegaly - platelet count 79 at [place], now 30-60K. Unclear why platelet count decreasing, concern for possible sepsis with decreased BP, increased creatinine , leukocytosis. Lactic acid now elevated at 2.4. s/p 1 unit platelets yesterday, now platelets improved to 60. - Transfuse < 10, < 50 if bleeding, otherwise monitor - HIV screen positive, however HIV Antibody 1/2 confirm negative, probably false positive per ID. 4th generation HIV testing returned as non-reactive. Appreciate ID recs. - Hepatitis panel negative, unlikely DIC as prolongation of caogs and low fibrinogen likely related to liver disease. No need to give cryoprecipitate unless patient bleeding. - Abdominal US showed 1. Coarsened hepatic echotexture and suggested liver surface nodularity and mild common bile duct dilatation. - MRI Abdomen 02/08/17 showed 1. Cirrhosis without definite evidence of focal hepatic lesion. 2. Small ascites and splenomegaly. 3. Cholelithiasis with irregular gallbladder wall thickening may be related to chronic cholecystitis however cannot rule out underlying gallbladder mass lesion. 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 Kehinde Jimenez who informed me that he does not have a history of hemophilia but rather simply coagulopathy due to liver disease. However, the patient states that he was diagnosed in his 20s with hemophilia, prior to liver disease, diagnosed by Dr. Hu (now ) in [place]. 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 Factor IX low at 28%, difficult to determine whether related to liver disease, but even if patient does have mild hemophilia B it would be mild. Factor VIII level elevated 22. 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 - doubt inhibitor as patient states never received Factor IX concentrate in the past, however will order factor IX inhibitor titer - pending - s/p factor IX 2000 units yesterday given bleeding from PICC line requiring blood transfusions, PTT slightly improved to 51 today, no active bleeding today # Coagulopathy, with elevated PTT/INR - Coagulopathy likely related to liver disease, mild hemophilia B with low Factor IX level may also contribute to prolongation especially of PTT - status post paracentesis 02/17/17 with 3L removed. If needs repeat paracentesis , can give further FFP and factor IX, plus vitamin K as needed, however patient declines at this time as he states prior paracentesis was painful. - s/p 2,000 units of Factor IX 02/23/17 given bleeding from PICC line. Continue Vitamin K 5 mg x 3 days. Will hold off on FFP given fluid overload. . # Macrocytic anemia, MCV 101.6, Hgb 8.5 at [facility] - Hgb 6.5 with MCV 99.0 on 02/07/17, s/p 2 units pRBCs now stable in 8-10 range. Transfuse < 8. s/p 1 unit pRBC 02/23/17, today 8.1. - iron panel with Fe 109, TIBC low at 125, %87, ferritin 1250 consistent with anemia of chronic inflammation, B12/folate/TSH SNL, homocysteine elevated at 29.9; methylmalonic acid normal at 118. Therefore, patient may benefit from folate supplementation, as increased homocysteine is tied to increased cardiovascular risk and folate administration may lower homocysteine though unclear whether decreases cardiovascular risk. Patient noted to already be on folate. LDH elevated, retic count inappropriately low; haptoglobin < 15 (though likely low due to liver disease) # Altered mental status, likely due to hepatic encephalopathy, meds (ativan), infection. Lactic acid 2.4. On empiric linezolid and meropenem per ID. Management per primary team. # Alcoholic liver cirrhosis, needs liver transplant but usually needs to be sober for at least 6 months. Follow-up GI recs. Case management request for auth to be obtained for outpatient follow-up with me or Dr. Naya Dawson Problems: Consultation Date/Type/Reason Admit Date/Time February 05, 2017 at 18:37 Initial Consult Date 02/06/17 Type of Consultation: Hematology Referring Provider: CARL GRANT MD 24 HR Interval Summary Free Text/Dictation Patient is altered and nonverbal. No bleeding but weeping from everywhere on his body. Exam/Review of Systems Vital Signs Vitals Vital Signs Date Time Temp Pulse Resp B/P Pulse Ox O2 Delivery O2 Flow Rate FiO2 02/24/17 16:12 93 02/24/17 15:10 97.9 18 99/56 98 Nasal Cannula 2.0 Intake and Output 02/23/17 02/23/17 02/24/17 15:00 23:00 07:00 Intake Total 520.5 ml 700 ml Output Total 200 ml Balance 520.5 ml 500 ml Exam Constitutional: altered, nonverbal Head: normocephalic Eyes: icteric ENMT: nl external ears & nose Neck: non-tender Respiratory: clear to auscultation Cardiovascular: nl pulses Gastrointestinal: distended, ascites Musculoskeletal: +edema bilaterally Extremities: normal pulses, bruises, weeping from bandages Neurological: nl mental status, nl speech Results Result Diagram: 02/24/17 1541 02/24/17 1541 Results 24 hrs Laboratory Tests Test 02/24/17 06:45 02/24/17 15:06 02/24/17 15:10 02/24/17 15:41 White Blood Count 14.1 #H 25.1 #H Red Blood Count 2.69 L 2.43 L Hemoglobin 8.7 L 8.1 L Hematocrit 23.7 L 21.3 L Mean Corpuscular Volume 88.1 87.7 Mean Corpuscular Hemoglobin 32.3 33.3 H Mean Corpuscular Hemoglobin Concent 36.7 38.0 H Red Cell Distribution Width 18.6 H 18.4 H Platelet Count 78 #L 60 #L Mean Platelet Volume 10.7 H 11.2 H Neutrophils % 87.2 H 90.0 H Lymphocytes % 4.8 L 1.0 L Monocytes % 6.5 3.0 Eosinophils % 0.9 Basophils % 0.1 Nucleated Red Blood Cells % 0.0 Neutrophils # 12.3 H 22.6 H Lymphocytes # 0.7 L 0.3 L Monocytes # 0.9 0.5 Eosinophils # 0.1 0.3 Basophils # 0.0 Nucleated Red Blood Cells # 0.0 Prothrombin Time 30.6 H Prothrombin Time Ratio 2.4 INR International Normalized Ratio 2.88 Activated Partial Thromboplast Time 51.2 H Sodium Level 125 L 123 L Potassium Level 3.9 4.0 Chloride Level 94 L 94 L Carbon Dioxide Level 18 L 17 L Anion Gap 17 H 16 Blood Urea Nitrogen 85 H 88 H Creatinine 2.44 H 2.78 H Glucose Level 90 90 Calcium Level 9.6 9.3 Ammonia 133 #H 95 H Blood Gas Specimen Source Blood arterial Arterial Blood Date Drawn 02/24/2017 3:20:00 PM Arterial Blood pH (Temp corrected) 7.446 Arterial Blood pCO2 (Temp correct) 23.8 L Arterial Blood pO2 (Temp corrected) 106.0 H Arterial Blood HCO3 16.0 L Arterial Blood Base Excess -6.9 L Arterial Blood Oxygen Saturation 97.6 Martínez Test ACCEPTAB Arterial Blood Gas Puncture Site Left Radial Arterial Blood Carboxyhemoglobin 1.0 Arterial Blood Methemoglobin 0.5 Blood Gas A-a O2 Differential 58.4 H Oxyhemoglobin Percent 96.1 Total Hemoglobin 8.9 L Blood Gas Temperature 37.0 Blood Gas Modality nsal cannula FiO2 27.0 Blood Gas Notified Whom jmd Blood Gas Notified Time 02/24/2017 3:27:41 PM Bedside Glucose 100 Band Neutrophils % 5.0 Metamyelocytes % 1.0 H Metamyelocytes # 0.3 Platelet Estimate PLT APPEAR DECREASED Clumped Platelets FEW Giant Platelets OCCASIONAL Poikilocytosis 1+ Anisocytosis 1+ Spherocytes FEW Acanthocytes FEW Schistocytes OCCASIONAL Test 02/24/17 17:48 Lactic Acid Level 2.4 H Medications Medications Current Medications Multivitamins Therapeutic (Theragran) 1 tab DAILY PO Last administered on 09:07; Admin Dose 1 TAB; Start 02/06/17 at 09:00 Thiamine HCl (Vitamin B1) 100 mg DAILY PO Last administered on 02/24/17 09:06; Admin Dose 100 MG; Start 02/06/17 at 09:00 Pantoprazole (Protonix Tab) 40 mg DAILY@06 PO Last administered on 02/24/17 05: 30; Admin Dose 40 MG; Start 02/06/17 at 06:00 Rifaximin (Xifaxan) 550 mg BID PO Last administered on 02/24/17 09:07; Admin Dose 550 MG; Start 02/06/17 at 09:00 Folic Acid (Folic Acid) 1 mg DAILY PO Last administered on 02/24/17 09:07; Admin Dose 1 MG; Start 02/06/17 at 09:00 Aripiprazole (Abilify) 1 mg HS PO Last administered on 02/23/17 20:50; Admin Dose 1 MG; Start 02/06/17 at 21:00 Morphine Sulfate (morphine) 2 mg Q3H PRN IV PAIN Last administered on 02/23/17 01:40; Admin Dose 2 MG; Start 02/06/17 at 01:00 Citric Acid/ Sodium Citrate (Bicitra) 30 ml TID PO Last administered on 12:38; Admin Dose 30 ML; Start 02/06/17 at 21:00 Propranolol HCl (Inderal) 10 mg BID PO ; Start 02/10/17 at 21:00; Status Future Hold Ondansetron HCl (Zofran Inj) 4 mg Q6H PRN IV NAUSEA AND/OR VOMITING Last administered on 02/16/17 18:01; Admin Dose 4 MG; Start 02/12/17 at 09:30 Sodium Chloride (Nacl) 1 gm BID PO Last administered on 02/24/17 09:08; Admin Dose 1 GM; Start 02/16/17 at 21:00 IV Flush 10 ml 10 ml PRN PRN IV IV PROTOCOL; Start 02/18/17 at 16:00 Phytonadione/ Dextrose (Vitamin K/D5W) 50.5 ml @ 101 mls/hr DAILY IVPB Last administered on 02/24/17 09:05; Admin Dose 101 MLS/HR; Start 02/23/17 at 15:30; Stop 02/26/17 at 15:29 Furosemide (Lasix) 20 mg DAILY PO Last administered on 02/24/17 09:07; Admin Dose 20 MG; Start 02/24/17 at 09:00 Lactulose 100 ml 100 ml Q6 [place] Last administered on 02/24/17 18:03; Admin Dose 100 ML; Start 02/24/17 at 18:00 Linezolid 300 ml @ 300 mls/hr Q12 IVPB Last administered on 02/24/17 18:04; Admin Dose 300 MLS/HR; Start 02/24/17 at 18:00 Meropenem/Sodium Chloride (Merrem/NS) 100 ml @ 200 mls/hr Q12 IVPB ; Start 02/24 at 21:00 ABRAM HINDS MD Feb 24, 2017 19:19
[2017-02-24 19:27] VITALS: BP 92/54; RESP 18
--- NOTE | 2017-02-24 20:35 | PN ---
Date/Time of Note Date/Time of Note DATE: 02/24/17 TIME: 20:27 Assessment/Plan Lines/Catheters IV Catheter Type (from [facility]): PICC Line Urinary Cath still in place: No Assessment/Plan Assessment/Plan - Altered Level of Consciousness sec to Hepatic encephalopathy - Rapid response called - stat Labs - am labs - npo - aspiration precautions - Hepatic encephalopathy,. Continue lactulose and rifaximin. - Alcoholic liver cirrhosis. Dr. Zelaya is following in gastroenterology consultation. - Ascites secondary to liver cirrhosis. S/p paracentesis on 02/17. - Acute kidney injury, rule out hepatorenal syndrome. Dr. Robles is following in nephrology consultation. - Human immunodeficiency virus positive status. Dr. Shelby sosa is following in infectious disease consultation. - Thrombocytopenia secondary to alcoholic liver cirrhosis. Dr. Cabral is following in hematology consultation. - Microcytic anemia. Status post transfusion, continue to monitor hemoglobin and hematocrit. - Coagulopathy, status post FFP and vitamin K. - Cholelithiasis. Status post MRCP, no evidence of obstruction of bile duct stone. - Hyponatremia secondary to liver cirrhosis. Further recommendations based on clinical course. Plan of care discussed with Dr. James. Subjective 24 Hr Interval Summary Free Text/Dictation late charting for 1729 Exam/Review of Systems Vital Signs Vitals Vital Signs Date Time Temp Pulse Resp B/P Pulse Ox O2 Delivery O2 Flow Rate FiO2 02/24/17 19:27 97.7 92 18 92/54 98 02/24/17 15:10 Nasal Cannula 2.0 Intake and Output 02/23/17 02/23/17 02/24/17 15:00 23:00 07:00 Intake Total 520.5 ml 700 ml Output Total 200 ml Balance 520.5 ml 500 ml Results Result Diagram: 02/24/17 1541 02/24/17 1541 Results 24 hrs Laboratory Tests Test 02/24/17 06:45 02/24/17 15:06 02/24/17 15:10 02/24/17 15:41 White Blood Count 14.1 #H 25.1 #H Red Blood Count 2.69 L 2.43 L Hemoglobin 8.7 L 8.1 L Hematocrit 23.7 L 21.3 L Mean Corpuscular Volume 88.1 87.7 Mean Corpuscular Hemoglobin 32.3 33.3 H Mean Corpuscular Hemoglobin Concent 36.7 38.0 H Red Cell Distribution Width 18.6 H 18.4 H Platelet Count 78 #L 60 #L Mean Platelet Volume 10.7 H 11.2 H Neutrophils % 87.2 H 90.0 H Lymphocytes % 4.8 L 1.0 L Monocytes % 6.5 3.0 Eosinophils % 0.9 Basophils % 0.1 Nucleated Red Blood Cells % 0.0 Neutrophils # 12.3 H 22.6 H Lymphocytes # 0.7 L 0.3 L Monocytes # 0.9 0.5 Eosinophils # 0.1 0.3 Basophils # 0.0 Nucleated Red Blood Cells # 0.0 Prothrombin Time 30.6 H Prothrombin Time Ratio 2.4 INR International Normalized Ratio 2.88 Activated Partial Thromboplast Time 51.2 H Sodium Level 125 L 123 L Potassium Level 3.9 4.0 Chloride Level 94 L 94 L Carbon Dioxide Level 18 L 17 L Anion Gap 17 H 16 Blood Urea Nitrogen 85 H 88 H Creatinine 2.44 H 2.78 H Glucose Level 90 90 Calcium Level 9.6 9.3 Ammonia 133 #H 95 H Blood Gas Specimen Source Blood arterial Arterial Blood Date Drawn 02/24/2017 3:20:00 PM Arterial Blood pH (Temp corrected) 7.446 Arterial Blood pCO2 (Temp correct) 23.8 L Arterial Blood pO2 (Temp corrected) 106.0 H Arterial Blood HCO3 16.0 L Arterial Blood Base Excess -6.9 L Arterial Blood Oxygen Saturation 97.6 Martínez Test ACCEPTAB Arterial Blood Gas Puncture Site Left Radial Arterial Blood Carboxyhemoglobin 1.0 Arterial Blood Methemoglobin 0.5 Blood Gas A-a O2 Differential 58.4 H Oxyhemoglobin Percent 96.1 Total Hemoglobin 8.9 L Blood Gas Temperature 37.0 Blood Gas Modality nsal cannula FiO2 27.0 Blood Gas Notified Whom jmd Blood Gas Notified Time 02/24/2017 3:27:41 PM Bedside Glucose 100 Band Neutrophils % 5.0 Metamyelocytes % 1.0 H Metamyelocytes # 0.3 Platelet Estimate PLT APPEAR DECREASED Clumped Platelets FEW Giant Platelets OCCASIONAL Poikilocytosis 1+ Anisocytosis 1+ Spherocytes FEW Acanthocytes FEW Schistocytes OCCASIONAL Test 02/24/17 17:48 Lactic Acid Level 2.4 H Medications Medications Current Medications Multivitamins Therapeutic (Theragran) 1 tab DAILY PO Last administered on 09:07; Admin Dose 1 TAB; Start 02/06/17 at 09:00 Thiamine HCl (Vitamin B1) 100 mg DAILY PO Last administered on 02/24/17 09:06; Admin Dose 100 MG; Start 02/06/17 at 09:00 Pantoprazole (Protonix Tab) 40 mg DAILY@06 PO Last administered on 02/24/17 05: 30; Admin Dose 40 MG; Start 02/06/17 at 06:00 Rifaximin (Xifaxan) 550 mg BID PO Last administered on 02/24/17 09:07; Admin Dose 550 MG; Start 02/06/17 at 09:00 Folic Acid (Folic Acid) 1 mg DAILY PO Last administered on 02/24/17 09:07; Admin Dose 1 MG; Start 02/06/17 at 09:00 Aripiprazole (Abilify) 1 mg HS PO Last administered on 02/23/17 20:50; Admin Dose 1 MG; Start 02/06/17 at 21:00 Morphine Sulfate (morphine) 2 mg Q3H PRN IV PAIN Last administered on 02/23/17 01:40; Admin Dose 2 MG; Start 02/06/17 at 01:00 Citric Acid/ Sodium Citrate (Bicitra) 30 ml TID PO Last administered on 12:38; Admin Dose 30 ML; Start 02/06/17 at 21:00 Propranolol HCl (Inderal) 10 mg BID PO ; Start 02/10/17 at 21:00; Status Future Hold Ondansetron HCl (Zofran Inj) 4 mg Q6H PRN IV NAUSEA AND/OR VOMITING Last administered on 02/16/17 18:01; Admin Dose 4 MG; Start 02/12/17 at 09:30 Sodium Chloride (Nacl) 1 gm BID PO Last administered on 02/24/17 09:08; Admin Dose 1 GM; Start 02/16/17 at 21:00 IV Flush 10 ml 10 ml PRN PRN IV IV PROTOCOL; Start 02/18/17 at 16:00 Phytonadione/ Dextrose (Vitamin K/D5W) 50.5 ml @ 101 mls/hr DAILY IVPB Last administered on 02/24/17 09:05; Admin Dose 101 MLS/HR; Start 02/23/17 at 15:30; Stop 02/26/17 at 15:29 Furosemide (Lasix) 20 mg DAILY PO Last administered on 02/24/17 09:07; Admin Dose 20 MG; Start 02/24/17 at 09:00 Lactulose 100 ml 100 ml Q6 ID Last administered on 02/24/17 18:03; Admin Dose 100 ML; Start 02/24/17 at 18:00 Linezolid 300 ml @ 300 mls/hr Q12 IVPB Last administered on 02/24/17 18:04; Admin Dose 300 MLS/HR; Start 02/24/17 at 18:00 Meropenem/Sodium Chloride (Merrem/NS) 100 ml @ 200 mls/hr Q12 IVPB ; Start 02/24 at 21:00 DAFNE LECHUGA Feb 24, 2017 20:35
[2017-02-24] MEDS: ARIPIPRAZOLE 2 MG TAB PO SCH (21:02)
[2017-02-24] MEDS: MEROPENEM 1 GM in SOD CHLORIDE 0.9% 100 ML IVPB SCH (21:14)
[2017-02-24] MEDS: DEXTROSE 5%-0.45% NACL 1,000 ML IV SCH (21:18)
--- NOTE | 2017-02-24 22:13 | CONS ---
Date/Time of Note Date/Time of Note DATE: 02/24/17 TIME: 22:10 Assessment/Plan Assessment/Plan Additional Assessment/Plan Assessment/Plan Additional Assessment/Plan 1. Hyponatremia secondary to liver cirrhosis.persistent NA125 2. Acute kidney injury without heptorenal syndrome, likely secondary to prerenal azotemia in the setting of decompensated liver cirrhosis. 3. 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 History of recurrent ascites, status post last paracentesis done 3 weeks ago , 1.6 liters of fluid was removed. 5. Acute hyperkalemia, possibly secondary to Bactrim. 6. H/o ascites, status post a paracentesis 3 L of fluid was removed 7. Pedal edema 4+ 8. False-positive HIV 9.thrombocytopenia PLAN: - EtOH cessation counseled - [facility] referral for liver transplant evaluation if patient is not an active drinker - continue lactulose and rifaximen for hepatic encephalopathy - continue low dose lasix, titrate as tolerated by kidney function P.o. fluid restriction prognosis poor Consultation Date/Type/Reason Admit Date/Time February 05, 2017 at 18:37 Initial Consult Date 02/06/17 Type of Consultation: Hematology Referring Provider: CARL GRANT MD 24 HR Interval Summary Subjective hx not possible: pt critical Exam/Review of Systems Vital Signs Vitals Vital Signs Date Time Temp Pulse Resp B/P Pulse Ox O2 Delivery O2 Flow Rate FiO2 02/24/17 19:27 97.7 92 18 92/54 98 02/24/17 15:10 Nasal Cannula 2.0 Intake and Output 02/23/17 02/23/17 02/24/17 15:00 23:00 07:00 Intake Total 520.5 ml 700 ml Output Total 200 ml Balance 520.5 ml 500 ml Exam Constitutional: frail Psych: nl mood/affect Head: atraumatic, normocephalic Eyes: EOMI, PERRL, icteric, nl conjunctiva, nl lids, nl sclera Respiratory: clear to auscultation, normal air movement Cardiovascular: nl pulses, regular rate and rhythm Gastrointestinal: nl liver, spleen, non-tender, soft Extremities: pitting pedal edema Neurological: lethargic Results Result Diagram: 02/24/17 1541 02/24/17 1541 Results 24 hrs Laboratory Tests Test 02/24/17 06:45 02/24/17 15:06 02/24/17 15:10 02/24/17 15:41 White Blood Count 14.1 #H 25.1 #H Red Blood Count 2.69 L 2.43 L Hemoglobin 8.7 L 8.1 L Hematocrit 23.7 L 21.3 L Mean Corpuscular Volume 88.1 87.7 Mean Corpuscular Hemoglobin 32.3 33.3 H Mean Corpuscular Hemoglobin Concent 36.7 38.0 H Red Cell Distribution Width 18.6 H 18.4 H Platelet Count 78 #L 60 #L Mean Platelet Volume 10.7 H 11.2 H Neutrophils % 87.2 H 90.0 H Lymphocytes % 4.8 L 1.0 L Monocytes % 6.5 3.0 Eosinophils % 0.9 Basophils % 0.1 Nucleated Red Blood Cells % 0.0 Neutrophils # 12.3 H 22.6 H Lymphocytes # 0.7 L 0.3 L Monocytes # 0.9 0.5 Eosinophils # 0.1 0.3 Basophils # 0.0 Nucleated Red Blood Cells # 0.0 Prothrombin Time 30.6 H Prothrombin Time Ratio 2.4 INR International Normalized Ratio 2.88 Activated Partial Thromboplast Time 51.2 H Sodium Level 125 L 123 L Potassium Level 3.9 4.0 Chloride Level 94 L 94 L Carbon Dioxide Level 18 L 17 L Anion Gap 17 H 16 Blood Urea Nitrogen 85 H 88 H Creatinine 2.44 H 2.78 H Glucose Level 90 90 Calcium Level 9.6 9.3 Ammonia 133 #H 95 H Blood Gas Specimen Source Blood arterial Arterial Blood Date Drawn 02/24/2017 3:20:00 PM Arterial Blood pH (Temp corrected) 7.446 Arterial Blood pCO2 (Temp correct) 23.8 L Arterial Blood pO2 (Temp corrected) 106.0 H Arterial Blood HCO3 16.0 L Arterial Blood Base Excess -6.9 L Arterial Blood Oxygen Saturation 97.6 Martínez Test ACCEPTAB Arterial Blood Gas Puncture Site Left Radial Arterial Blood Carboxyhemoglobin 1.0 Arterial Blood Methemoglobin 0.5 Blood Gas A-a O2 Differential 58.4 H Oxyhemoglobin Percent 96.1 Total Hemoglobin 8.9 L Blood Gas Temperature 37.0 Blood Gas Modality nsal cannula FiO2 27.0 Blood Gas Notified Whom keyonna Blood Gas Notified Time 02/24/2017 3:27:41 PM Bedside Glucose 100 Band Neutrophils % 5.0 Metamyelocytes % 1.0 H Metamyelocytes # 0.3 Platelet Estimate PLT APPEAR DECREASED Clumped Platelets FEW Giant Platelets OCCASIONAL Poikilocytosis 1+ Anisocytosis 1+ Spherocytes FEW Acanthocytes FEW Schistocytes OCCASIONAL Test 02/24/17 17:48 Lactic Acid Level 2.4 H Medications Medications Current Medications Multivitamins Therapeutic (Theragran) 1 tab DAILY PO Last administered on 09:07; Admin Dose 1 TAB; Start 02/06/17 at 09:00 Thiamine HCl (Vitamin B1) 100 mg DAILY PO Last administered on 02/24/17 09:06; Admin Dose 100 MG; Start 02/06/17 at 09:00 Pantoprazole (Protonix Tab) 40 mg DAILY@06 PO Last administered on 02/24/17 05: 30; Admin Dose 40 MG; Start 02/06/17 at 06:00 Rifaximin (Xifaxan) 550 mg BID PO Last administered on 02/24/17 21:00; Admin Dose 550 MG; Start 02/06/17 at 09:00 Folic Acid (Folic Acid) 1 mg DAILY PO Last administered on 02/24/17 09:07; Admin Dose 1 MG; Start 02/06/17 at 09:00 Aripiprazole (Abilify) 1 mg HS PO Last administered on 02/24/17 21:02; Admin Dose 1 MG; Start 02/06/17 at 21:00 Morphine Sulfate (morphine) 2 mg Q3H PRN IV PAIN Last administered on 02/23/17 01:40; Admin Dose 2 MG; Start 02/06/17 at 01:00 Citric Acid/ Sodium Citrate (Bicitra) 30 ml TID PO Last administered on 12:38; Admin Dose 30 ML; Start 02/06/17 at 21:00 Propranolol HCl (Inderal) 10 mg BID PO ; Start 02/10/17 at 21:00; Status Future Hold Ondansetron HCl (Zofran Inj) 4 mg Q6H PRN IV NAUSEA AND/OR VOMITING Last administered on 02/16/17 18:01; Admin Dose 4 MG; Start 02/12/17 at 09:30 Sodium Chloride (Nacl) 1 gm BID PO Last administered on 02/24/17 21:02; Admin Dose 1 GM; Start 02/16/17 at 21:00 IV Flush 10 ml 10 ml PRN PRN IV IV PROTOCOL; Start 02/18/17 at 16:00 Phytonadione/ Dextrose (Vitamin K/D5W) 50.5 ml @ 101 mls/hr DAILY IVPB Last administered on 02/24/17 09:05; Admin Dose 101 MLS/HR; Start 02/23/17 at 15:30; Stop 02/26/17 at 15:29 Furosemide (Lasix) 20 mg DAILY PO Last administered on 02/24/17 09:07; Admin Dose 20 MG; Start 02/24/17 at 09:00 Lactulose 100 ml 100 ml Q6 NM Last administered on 02/24/17 18:03; Admin Dose 100 ML; Start 02/24/17 at 18:00 Linezolid 300 ml @ 300 mls/hr Q12 IVPB Last administered on 02/24/17 18:04; Admin Dose 300 MLS/HR; Start 02/24/17 at 18:00 Meropenem 1 gm/ Sodium Chloride 100 ml @ 200 mls/hr Q12 IVPB Last administered on 02/24/17 21:14; Admin Dose 200 MLS/HR; Start 02/24/17 at 21:00 Dextrose/Sodium Chloride (D5-1/2ns) 1,000 ml @ 40 mls/hr Q24H IV Last administered on 02/24/17 21:18; Admin Dose 40 MLS/HR; Start 02/24/17 at 21:00 IGNACIA HERR MD Feb 24, 2017 22:13
[2017-02-25 04:55] LABS: ADD SCAN DIFF NO
[2017-02-25 05:00] LABS: ABNORMAL IP MESSAGE 1; EOSINOPHILS % 0.2 % (0.0-7.0); HEMATOCRIT 19.9 % (42.0-52.0); HEMOGLOBIN 7.5 g/dl (14.0-18.0); LYMPHOCYTES # 0.6 10^3/ul (0.8-2.9); LYMPHOCYTES % 2.8 % (15.0-51.0); MEAN CORPUSCULAR VOLUME 87.7 fl (82.0-101.0); MEAN PLATELET VOLUME 11.6 fl (7.4-10.4); MONOCYTE # 1.3 10^3/ul (0.3-0.9); NEUTROPHIL # 20.2 10^3/ul (1.6-7.5); NEUTROPHILS % 90.4 % (39.0-77.0); PLATELET COUNT 52 10^3/UL (140-415); RED BLOOD COUNT 2.27 10^6/ul (4.70-6.10); RED CELL DISTRIBUTION WIDTH 18.7 % (11.5-14.5); WHITE BLOOD COUNT 22.4 10^3/ul (4.8-10.8)
[2017-02-25 05:21] LABS: ALBUMIN 2.4 g/dl (3.3-4.9); ALBUMIN/GLOBULIN RATIO 0.61; BILIRUBIN,DIRECT 8.3 mg/dl (0.00-0.20); BILIRUBIN,INDIRECT 3.8 mg/dl (0-1.1); BILIRUBIN,TOTAL 12.1 mg/dl (0.2-1.3); CALCIUM 9.5 mg/dl (8.4-10.2); CREATININE 3.05 mg/dl (0.61-1.24); TOTAL PROTEIN 6.3 g/dl (6.1-8.1)
[2017-02-25 05:33] LABS: MEAN CORPUSCULAR HGB CONC 37.7 g/dl (32.0-37.0)
[2017-02-25] MEDS: PANTOPRAZOLE (EC) 40 MG TAB PO SCH (05:47)
[2017-02-25] MEDS: LACTULOSE ENEMA 1,000 ML BTL PR SCH ×4 (05:47→21:54)
[2017-02-25 07:28] VITALS: BP 115/55; RESP 19
--- NOTE | 2017-02-25 08:49 | RADRPT ---
Vent Rate: 90 bpm RR Interval: 0 msec [place] Interval: 166 msec QRS Duration: 106 msec QT Interval: 422 msec QTC Interval: 516 msec P-R-T [place]: 81 - 46 - 69 degrees Normal sinus rhythm Abnormal ECG Nonspecific ST-T changes No previous tracing available for comparison Electronically Signed By: Robin Avery [id number]
--- NOTE | 2017-02-25 09:30 | CONS ---
Date/Time of Note Date/Time of Note DATE: 02/25/17 TIME: 09:26 Assessment/Plan Assessment/Plan Chief Complaint/Hosp Course The patient is a 56-year-old male patient with a history of alcoholic liver cirrhosis, hemophilia, admitted with hepatorenal syndrome-nephrology. Hematology consulted due to history of hemophilia and thrombocytopenia. Now with altered mental status, worsening liver/renal failure, anasarca, possible infection. # Thrombocytopenia, likely related to alcoholic liver cirrhosis and splenomegaly - platelet count 79 at [place], now 30-60K. Unclear why platelet count decreasing, concern for possible sepsis with decreased BP, increased creatinine , leukocytosis. Lactic acid now elevated at 2.4. s/p 1 unit platelets 02/23/19, now platelets 52k. Will request peripheral smear with path review. - Transfuse < 10, < 50 if bleeding, otherwise monitor - HIV screen positive, however HIV Antibody 1/2 confirm negative, probably false positive per ID. 4th generation HIV testing returned as non-reactive. Appreciate ID recs. - Hepatitis panel negative, unlikely DIC as prolongation of caogs and low fibrinogen likely related to liver disease. No need to give cryoprecipitate unless patient bleeding. - Abdominal US showed 1. Coarsened hepatic echotexture and suggested liver surface nodularity and mild common bile duct dilatation. - MRI Abdomen 02/08/17 showed 1. Cirrhosis without definite evidence of focal hepatic lesion. 2. Small ascites and splenomegaly. 3. Cholelithiasis with irregular gallbladder wall thickening may be related to chronic cholecystitis however cannot rule out underlying gallbladder mass lesion. 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 Kehinde Jimenez who informed me that he does not have a history of hemophilia but rather simply coagulopathy due to liver disease. However, the patient states that he was diagnosed in his 20s with hemophilia, prior to liver disease, diagnosed by Dr. Hu (now ) in [place]. 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 Factor IX low at 28%, difficult to determine whether related to liver disease, but even if patient does have mild hemophilia B it would be mild. Factor VIII level elevated . 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 If needs repeat paracentesis , can give further FFP and factor IX, plus vitamin K as needed, however patient declines at this time as he states prior paracentesis was painful. - s/p 2,000 units of Factor IX 02/23/17 given bleeding from PICC line. Continue Vitamin K 5 mg x 3 days. Will hold off on FFP given fluid overload. . # Macrocytic anemia, MCV 101.6, Hgb 8.5 at [facility] - Hgb 6.5 with MCV 99.0 on 02/07/17, s/p 2 units pRBCs now stable in 8-10 range. Transfuse < 8. Will give 1 unit platelets today for Hgb 7.5. - iron panel with Fe 109, TIBC low at 125, %87, ferritin 1250 consistent with anemia of chronic inflammation, B12/folate/TSH SNL, homocysteine elevated at 29.9; methylmalonic acid normal at 118. Therefore, patient may benefit from folate supplementation, as increased homocysteine is tied to increased cardiovascular risk and folate administration may lower homocysteine though unclear whether decreases cardiovascular risk. Patient noted to already be on folate. LDH elevated, retic count inappropriately low; haptoglobin < 15 (though likely low due to liver disease) # Altered mental status, likely due to hepatic encephalopathy, meds (ativan), infection. Lactic acid 2.4. On empiric linezolid and meropenem per ID. Management per primary team. # Alcoholic liver cirrhosis, needs liver transplant but usually needs to be sober for at least [address] Sy, Dr. Zelaya and Dr. Robles recommend hospice eval. Pending consultation from Dr. Pratt and [facility]. Problems: Consultation Date/Type/Reason Admit Date/Time February 05, 2017 at 18:37 Initial Consult Date 02/06/17 Type of Consultation: Hematology Referring Provider: CARL GRANT MD 24 HR Interval Summary Free Text/Dictation Patient slightly more responsive today, still somnolent. Weeping diffusely from skin, no active bleeding. Exam/Review of Systems Vital Signs Vitals Vital Signs Date Time Temp Pulse Resp B/P Pulse Ox O2 Delivery O2 Flow Rate FiO2 02/25/17 07:28 97.8 101 19 115/55 99 02/24/17 21:40 Nasal Cannula 2.0 Intake and Output 02/24/17 02/24/17 02/25/17 15:00 23:00 07:00 Intake Total 50.5 ml 660 ml 70 ml Output Total 600 ml Balance 50.5 ml 660 ml -530 ml Exam Constitutional: altered, nonverbal Head: normocephalic Eyes: icteric ENMT: nl external ears & nose Neck: non-tender Respiratory: clear to auscultation Cardiovascular: nl pulses Gastrointestinal: distended, ascites Musculoskeletal: +edema bilaterally Extremities: normal pulses, bruises, weeping from bandages Neurological: nl mental status, nl speech Results Result Diagram: 02/25/17 0435 02/25/17 0435 Results 24 hrs Laboratory Tests Test 02/24/17 15:06 02/24/17 15:10 02/24/17 15:41 02/24/17 17:48 Blood Gas Specimen Source Blood arterial Arterial Blood Date Drawn 02/24/2017 3:20:00 PM Arterial Blood pH (Temp corrected) 7.446 Arterial Blood pCO2 (Temp correct) 23.8 L Arterial Blood pO2 (Temp corrected) 106.0 H Arterial Blood HCO3 16.0 L Arterial Blood Base Excess -6.9 L Arterial Blood Oxygen Saturation 97.6 Martínez Test ACCEPTAB Arterial Blood Gas Puncture Site Left Radial Arterial Blood Carboxyhemoglobin 1.0 Arterial Blood Methemoglobin 0.5 Blood Gas A-a O2 Differential 58.4 H Oxyhemoglobin Percent 96.1 Total Hemoglobin 8.9 L Blood Gas Temperature 37.0 Blood Gas Modality nsal cannula FiO2 27.0 Blood Gas Notified Whom keyonna Blood Gas Notified Time 02/24/2017 3:27:41 PM Bedside Glucose 100 White Blood Count 25.1 #H Red Blood Count 2.43 L Hemoglobin 8.1 L Hematocrit 21.3 L Mean Corpuscular Volume 87.7 Mean Corpuscular Hemoglobin 33.3 H Mean Corpuscular Hemoglobin Concent 38.0 H Red Cell Distribution Width 18.4 H Platelet Count 60 #L Mean Platelet Volume 11.2 H Neutrophils % 90.0 H Band Neutrophils % 5.0 Lymphocytes % 1.0 L Monocytes % 3.0 Eosinophils % Metamyelocytes % 1.0 H Neutrophils # 22.6 H Lymphocytes # 0.3 L Monocytes # 0.5 Eosinophils # 0.3 Metamyelocytes # 0.3 Platelet Estimate PLT APPEAR DECREASED Clumped Platelets FEW Giant Platelets OCCASIONAL Poikilocytosis 1+ Anisocytosis 1+ Spherocytes FEW Acanthocytes FEW Schistocytes OCCASIONAL Sodium Level 123 L Potassium Level 4.0 Chloride Level 94 L Carbon Dioxide Level 17 L Anion Gap 16 Blood Urea Nitrogen 88 H Creatinine 2.78 H Glucose Level 90 Calcium Level 9.3 Ammonia 95 H Lactic Acid Level 2.4 H Test 02/25/17 04:35 02/25/17 07:01 White Blood Count 22.4 H Red Blood Count 2.27 L Hemoglobin 7.5 L Hematocrit 19.9 L Mean Corpuscular Volume 87.7 Mean Corpuscular Hemoglobin 33.0 Mean Corpuscular Hemoglobin Concent 37.7 H Red Cell Distribution Width 18.7 H Platelet Count 52 L Mean Platelet Volume 11.6 H Neutrophils % 90.4 H Lymphocytes % 2.8 L Monocytes % 6.0 Eosinophils % 0.2 Basophils % 0.0 Nucleated Red Blood Cells % 0.0 Neutrophils # 20.2 H Lymphocytes # 0.6 L Monocytes # 1.3 H Eosinophils # 0.0 Basophils # 0.0 Nucleated Red Blood Cells # 0.0 Sodium Level 125 L Potassium Level 4.0 Chloride Level 95 L Carbon Dioxide Level 16 L Anion Gap 18 H Blood Urea Nitrogen 93 H Creatinine 3.05 H Glucose Level 103 Calcium Level 9.5 Total Bilirubin 12.1 H Direct Bilirubin 8.30 H Indirect Bilirubin 3.8 H Aspartate Amino Transf (AST/SGOT) 75 H Alanine Aminotransferase (ALT/SGPT) 47 Alkaline Phosphatase 196 H Total Protein 6.3 Albumin 2.4 L Globulin 3.90 H Albumin/Globulin Ratio 0.61 Lab Scanned Report BLOOD TRANSFUSION Medications Medications Current Medications Multivitamins Therapeutic (Theragran) 1 tab DAILY PO Last administered on 09:07; Admin Dose 1 TAB; Start 02/06/17 at 09:00 Thiamine HCl (Vitamin B1) 100 mg DAILY PO Last administered on 02/24/17 09:06; Admin Dose 100 MG; Start 02/06/17 at 09:00 Pantoprazole (Protonix Tab) 40 mg DAILY@06 PO Last administered on 02/25/17 05: 47; Admin Dose 40 MG; Start 02/06/17 at 06:00 Rifaximin (Xifaxan) 550 mg BID PO Last administered on 02/24/17 21:00; Admin Dose 550 MG; Start 02/06/17 at 09:00 Folic Acid (Folic Acid) 1 mg DAILY PO Last administered on 02/24/17 09:07; Admin Dose 1 MG; Start 02/06/17 at 09:00 Aripiprazole (Abilify) 1 mg HS PO Last administered on 02/24/17 21:02; Admin Dose 1 MG; Start 02/06/17 at 21:00 Morphine Sulfate (morphine) 2 mg Q3H PRN IV PAIN Last administered on 02/23/17 01:40; Admin Dose 2 MG; Start 02/06/17 at 01:00 Citric Acid/ Sodium Citrate (Bicitra) 30 ml TID PO Last administered on 12:38; Admin Dose 30 ML; Start 02/06/17 at 21:00 Propranolol HCl (Inderal) 10 mg BID PO ; Start 02/10/17 at 21:00; Status Future Hold Ondansetron HCl (Zofran Inj) 4 mg Q6H PRN IV NAUSEA AND/OR VOMITING Last administered on 02/16/17 18:01; Admin Dose 4 MG; Start 02/12/17 at 09:30 Sodium Chloride (Nacl) 1 gm BID PO Last administered on 02/24/17 21:02; Admin Dose 1 GM; Start 02/16/17 at 21:00 IV Flush 10 ml 10 ml PRN PRN IV IV PROTOCOL; Start 02/18/17 at 16:00 Phytonadione/ Dextrose (Vitamin K/D5W) 50.5 ml @ 101 mls/hr DAILY IVPB Last administered on 02/24/17 09:05; Admin Dose 101 MLS/HR; Start 02/23/17 at 15:30; Stop 02/26/17 at 15:29 Furosemide (Lasix) 20 mg DAILY PO Last administered on 02/24/17 09:07; Admin Dose 20 MG; Start 02/24/17 at 09:00 Lactulose 100 ml 100 ml Q6 SC Last administered on 02/25/17 05:47; Admin Dose 100 ML; Start 02/24/17 at 18:00 Linezolid 300 ml @ 300 mls/hr Q12 IVPB Last administered on 02/24/17 18:04; Admin Dose 300 MLS/HR; Start 02/24/17 at 18:00 Meropenem 1 gm/ Sodium Chloride 100 ml @ 200 mls/hr Q12 IVPB Last administered on 02/24/17 21:14; Admin Dose 200 MLS/HR; Start 02/24/17 at 21:00 Dextrose/Sodium Chloride (D5-1/2ns) 1,000 ml @ 40 mls/hr Q24H IV Last administered on 02/24/17 21:18; Admin Dose 40 MLS/HR; Start 02/24/17 at 21:00 ABRAM HINDS MD Feb 25, 2017 09:30
[2017-02-25] MEDS: MEROPENEM 1 GM in SOD CHLORIDE 0.9% 100 ML IVPB SCH ×2 (11:11→20:27)
[2017-02-25] MEDS: PHYTONADIONE 5 MG in DEXTROSE 5% 50 ML IVPB SCH (11:11)
[2017-02-25] MEDS: LINEZOLID 600 MG/D5W (PMX) 300 ML IVPB SCH ×2 (11:12→21:42)
[2017-02-25] MEDS: FUROSEMIDE 20 MG TAB PO SCH (11:12)
[2017-02-25] MEDS: MULTIVITAMINS THERAPEUTIC TAB PO SCH (11:12)
[2017-02-25] MEDS: RIFAXIMIN 550 MG TAB PO SCH ×2 (11:12→21:00)
[2017-02-25] MEDS: FOLIC ACID 1 MG TAB PO SCH (11:12)
[2017-02-25] MEDS: THIAMINE 100 MG TAB PO SCH (11:12)
[2017-02-25] MEDS: SODIUM CHLORIDE 1 GM TAB PO SCH ×2 (11:12→21:00)
[2017-02-25] MEDS: CITRIC ACID/SODIUM CITRATE 15 ML CUP PO SCH ×3 (11:13→21:00)
--- NOTE | 2017-02-25 13:23 | CONS ---
Date/Time of Note Date/Time of Note DATE: 02/25/17 TIME: 13:19 Assessment/Plan Assessment/Plan Chief Complaint/Hosp Course IMPRESSION: 1. Exertional chest pain, assess for acute coronary syndrome.-negative troponin x 3. EF >65% by echo this admit. CP resolved 2. Dyspnea on exertion, assess for congestive heart failure.-increased BNP,. 3. Abnormal electrocardiogram, assess for acute coronary syndrome.-negative troponin x 3/NL EF by echo >65% this admit 4. Liver cirrhosis. 5. Nausea, vomiting. 6. ETOH abuse. 7. Polysubstance abuse. 8. Human immunodeficiency virus positivity. 9. Renal failure-worsening 10. Hyponatremia. 11. Coagulopathy. 12. Anemia 13. Thrombocytopenia. 14.Hypotension-intermittent/labile 15.Hyponatremia 16.Encephalopathy-worsening REcc: -Continue abx's and f/u cx data -Continue gentle diuresis following NA and BP closely as tolerated only given worsening renal function with possible need to hold altogether -Continue salt tabs -Holding propranolol given hypotension -Continue PPI -Continue lactulose -Continue vitamin K Problems: Consultation Date/Type/Reason Admit Date/Time February 05, 2017 at 18:37 Initial Consult Date 02/07/17 Type of Consultation: Cardiology Reason for Consultation Chest pain Referring Provider: CARL GRANT MD Exam/Review of Systems Vital Signs Vitals Vital Signs Date Time Temp Pulse Resp B/P Pulse Ox O2 Delivery O2 Flow Rate FiO2 02/25/17 07:28 97.8 101 19 115/55 99 02/24/17 21:40 Nasal Cannula 2.0 Intake and Output 02/24/17 02/24/17 02/25/17 15:00 23:00 07:00 Intake Total 50.5 ml 660 ml 70 ml Output Total 600 ml Balance 50.5 ml 660 ml -530 ml Exam Review of Systems: CONSTITUTIONAL: No fevers, chills. PULMONARY: No sob CARDIOVASCULAR: No obvious chest pain/palpitations GASTROINTESTINAL: No nausea/vomiting. GENITOURINARY: No hematuria/dysuria. MUSCULOSKELETAL: No myagias/arthalgias. PSYCHIATRIC: The patient denies depression. NEUROLOGIC: confused/lethargic Constitutional: other (sleeping) Psych: confusion Head: normocephalic ENMT: mucosa pink and moist Neck: jvd (9 cm water), supple Respiratory: diminished breath sounds (at bases/B) Cardiovascular: regular rate and rhythm Gastrointestinal: non-tender, soft Musculoskeletal: muscle weakness (generalized) Extremities: pitting pedal edema (BIlateral) Neurological: confused, lethargic Results Result Diagram: 02/25/17 0435 02/25/17 0435 Results 24 hrs Laboratory Tests Test 02/24/17 15:06 02/24/17 15:10 02/24/17 15:41 02/24/17 17:48 Blood Gas Specimen Source Blood arterial Arterial Blood Date Drawn 02/24/2017 3:20:00 PM Arterial Blood pH (Temp corrected) 7.446 Arterial Blood pCO2 (Temp correct) 23.8 L Arterial Blood pO2 (Temp corrected) 106.0 H Arterial Blood HCO3 16.0 L Arterial Blood Base Excess -6.9 L Arterial Blood Oxygen Saturation 97.6 Martínez Test ACCEPTAB Arterial Blood Gas Puncture Site Left Radial Arterial Blood Carboxyhemoglobin 1.0 Arterial Blood Methemoglobin 0.5 Blood Gas A-a O2 Differential 58.4 H Oxyhemoglobin Percent 96.1 Total Hemoglobin 8.9 L Blood Gas Temperature 37.0 Blood Gas Modality nsal cannula FiO2 27.0 Blood Gas Notified Whom jmd Blood Gas Notified Time 02/24/2017 3:27:41 PM Bedside Glucose 100 White Blood Count 25.1 #H Red Blood Count 2.43 L Hemoglobin 8.1 L Hematocrit 21.3 L Mean Corpuscular Volume 87.7 Mean Corpuscular Hemoglobin 33.3 H Mean Corpuscular Hemoglobin Concent 38.0 H Red Cell Distribution Width 18.4 H Platelet Count 60 #L Mean Platelet Volume 11.2 H Neutrophils % 90.0 H Band Neutrophils % 5.0 Lymphocytes % 1.0 L Monocytes % 3.0 Eosinophils % Metamyelocytes % 1.0 H Neutrophils # 22.6 H Lymphocytes # 0.3 L Monocytes # 0.5 Eosinophils # 0.3 Metamyelocytes # 0.3 Platelet Estimate PLT APPEAR DECREASED Clumped Platelets FEW Giant Platelets OCCASIONAL Poikilocytosis 1+ Anisocytosis 1+ Spherocytes FEW Acanthocytes FEW Schistocytes OCCASIONAL Sodium Level 123 L Potassium Level 4.0 Chloride Level 94 L Carbon Dioxide Level 17 L Anion Gap 16 Blood Urea Nitrogen 88 H Creatinine 2.78 H Glucose Level 90 Calcium Level 9.3 Ammonia 95 H Lactic Acid Level 2.4 H Test 02/25/17 04:35 02/25/17 07:01 White Blood Count 22.4 H Red Blood Count 2.27 L Hemoglobin 7.5 L Hematocrit 19.9 L Mean Corpuscular Volume 87.7 Mean Corpuscular Hemoglobin 33.0 Mean Corpuscular Hemoglobin Concent 37.7 H Red Cell Distribution Width 18.7 H Platelet Count 52 L Mean Platelet Volume 11.6 H Neutrophils % 90.4 H Lymphocytes % 2.8 L Monocytes % 6.0 Eosinophils % 0.2 Basophils % 0.0 Nucleated Red Blood Cells % 0.0 Neutrophils # 20.2 H Lymphocytes # 0.6 L Monocytes # 1.3 H Eosinophils # 0.0 Basophils # 0.0 Nucleated Red Blood Cells # 0.0 Sodium Level 125 L Potassium Level 4.0 Chloride Level 95 L Carbon Dioxide Level 16 L Anion Gap 18 H Blood Urea Nitrogen 93 H Creatinine 3.05 H Glucose Level 103 Calcium Level 9.5 Total Bilirubin 12.1 H Direct Bilirubin 8.30 H Indirect Bilirubin 3.8 H Aspartate Amino Transf (AST/SGOT) 75 H Alanine Aminotransferase (ALT/SGPT) 47 Alkaline Phosphatase 196 H Total Protein 6.3 Albumin 2.4 L Globulin 3.90 H Albumin/Globulin Ratio 0.61 Lab Scanned Report BLOOD TRANSFUSION Medications Medications Current Medications Multivitamins Therapeutic (Theragran) 1 tab DAILY PO Last administered on 11:12; Admin Dose 1 TAB; Start 02/06/17 at 09:00 Thiamine HCl (Vitamin B1) 100 mg DAILY PO Last administered on 02/25/17 11:12; Admin Dose 100 MG; Start 02/06/17 at 09:00 Pantoprazole (Protonix Tab) 40 mg DAILY@06 PO Last administered on 02/25/17 05: 47; Admin Dose 40 MG; Start 02/06/17 at 06:00 Rifaximin (Xifaxan) 550 mg BID PO Last administered on 02/25/17 11:12; Admin Dose 550 MG; Start 02/06/17 at 09:00 Folic Acid (Folic Acid) 1 mg DAILY PO Last administered on 02/25/17 11:12; Admin Dose 1 MG; Start 02/06/17 at 09:00 Aripiprazole (Abilify) 1 mg HS PO Last administered on 02/24/17 21:02; Admin Dose 1 MG; Start 02/06/17 at 21:00 Morphine Sulfate (morphine) 2 mg Q3H PRN IV PAIN Last administered on 02/23/17 01:40; Admin Dose 2 MG; Start 02/06/17 at 01:00 Citric Acid/ Sodium Citrate (Bicitra) 30 ml TID PO Last administered on 11:13; Admin Dose 30 ML; Start 02/06/17 at 21:00 Propranolol HCl (Inderal) 10 mg BID PO ; Start 02/10/17 at 21:00; Status Future Hold Ondansetron HCl (Zofran Inj) 4 mg Q6H PRN IV NAUSEA AND/OR VOMITING Last administered on 02/16/17 18:01; Admin Dose 4 MG; Start 02/12/17 at 09:30 Sodium Chloride (Nacl) 1 gm BID PO Last administered on 02/25/17 11:12; Admin Dose 1 GM; Start 02/16/17 at 21:00 IV Flush 10 ml 10 ml PRN PRN IV IV PROTOCOL; Start 02/18/17 at 16:00 Phytonadione/ Dextrose (Vitamin K/D5W) 50.5 ml @ 101 mls/hr DAILY IVPB Last administered on 02/25/17 11:11; Admin Dose 101 MLS/HR; Start 02/23/17 at 15:30; Stop 02/26/17 at 15:29 Furosemide (Lasix) 20 mg DAILY PO Last administered on 02/25/17 11:12; Admin Dose 20 MG; Start 02/24/17 at 09:00 Lactulose 100 ml 100 ml Q6 ME Last administered on 02/25/17 05:47; Admin Dose 100 ML; Start 02/24/17 at 18:00 Linezolid 300 ml @ 300 mls/hr Q12 IVPB Last administered on 02/25/17 11:12; Admin Dose 300 MLS/HR; Start 02/24/17 at 18:00 Meropenem 1 gm/ Sodium Chloride 100 ml @ 200 mls/hr Q12 IVPB Last administered on 02/25/17 11:11; Admin Dose 200 MLS/HR; Start 02/24/17 at 21:00 Dextrose/Sodium Chloride (D5-1/2ns) 1,000 ml @ 40 mls/hr Q24H IV Last administered on 02/24/17t 21:18; Admin Dose 40 MLS/HR; Start 02/24/17 at 21:00 SHAY COTTRELL Feb 25, 2017 13:23
--- NOTE | 2017-02-25 13:56 | CONS ---
Date/Time of Note Date/Time of Note DATE: 02/25/17 TIME: 13:53 Assessment/Plan Assessment/Plan Chief Complaint/Hosp Course - False positive initial HIV screen (positive by an initial screen, negative by a confirmatory antibody), HIV 1 viral load was undetectable twice, 4th generation HIV Ag/Ab combination test was unreactive. Pt denies a trip to or living in the parts of world endemic for HIV 2. 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 Pt has not received blood transfusions or blood products in the past - Hyponatremia, persistent, secondary to cirrhosis - Acute on chronic anemia requiring blood transfusion - Coagulopathy due to liver disease - Thrombocytopenia - Hyperammonemia - AGATA without heptorenal syndrome, likely secondary to prerenal azotemia in the setting of decompensated liver cirrhosis - Portal hypertension - Cholelithiasis - Recurrent ascites s/p paracentesis ~4 weeks ago with 1.6 L removed, repeat paracentesis on 02/17/2017 s/p 3 L removal - S/p hyperkalemia - H/o alcoholism - H/o substance abuse - Acute hepatic encephalopathy +/- toxic metabolic - Lactic acidosis with possible sepsis - clinically worsening Recommendations: - follow up blood cx (02/24/17 pending) and procalcitonin (in process) - check [id number]; consider adding caspofungin - continue empiric linezolid and meropenem (02/24/2017-) - trend WBC - agree with hospice evaluation as overall prognosis appears poor Management d/w MICHELLE Fagan and Dr. Ryan Problems: Consultation Date/Type/Reason Admit Date/Time February 05, 2017 at 18:37 Initial Consult Date 02/07/17 Type of Consultation: Infectious Disease Referring Provider: CARL GRANT MD 24 HR Interval Summary Free Text/Dictation NURSE ASSESSOR called yesterday for ALOC and hypotension. Pt with elevated ammonia level and lactulose was given rectally with no significant change in mental status per d/w nursing staff. Pt remains altered with sitter at bedside. Pt's girlfriend and friend are meeting with SW today to discuss plan of care since pt has no family. Unable to perform ROS due to pt's condition. Subjective hx not possible: pt non-verbal Exam/Review of Systems Vital Signs Vitals Vital Signs Date Time Temp Pulse Resp B/P Pulse Ox O2 Delivery O2 Flow Rate FiO2 02/25/17 07:28 97.8 101 19 115/55 99 02/24/17 21:40 Nasal Cannula 2.0 Intake and Output 02/24/17 02/24/17 02/25/17 15:00 23:00 07:00 Intake Total 50.5 ml 660 ml 70 ml Output Total 600 ml Balance 50.5 ml 660 ml -530 ml Exam Constitutional: frail, non-verbal, other (debilitated), well developed Head: atraumatic, normocephalic Eyes: icteric Neck: other (unable to assess) Respiratory: diminished breath sounds Cardiovascular: regular rate and rhythm, systolic murmur Gastrointestinal: ascites, distended, soft Genitourinary - Male: other (scrotal swelling) Extremities: edema, other (BLE with open blistering areas and large fluid weeping to bilateral feet- dressing saturated with yellowish fluid- see nurse note for details.) Neurological: lethargic, other (attempts to open eyes to verbal commands; no tracking) Skin: ecchymosis (LUE), other (jaundiced) Results Result Diagram: 02/25/17 0435 02/25/17 0435 Results 24 hrs Laboratory Tests Test 02/24/17 15:06 02/24/17 15:10 02/24/17 15:41 02/24/17 17:48 Blood Gas Specimen Source Blood arterial Arterial Blood Date Drawn 02/24/2017 3:20:00 PM Arterial Blood pH (Temp corrected) 7.446 Arterial Blood pCO2 (Temp correct) 23.8 L Arterial Blood pO2 (Temp corrected) 106.0 H Arterial Blood HCO3 16.0 L Arterial Blood Base Excess -6.9 L Arterial Blood Oxygen Saturation 97.6 Martínez Test ACCEPTAB Arterial Blood Gas Puncture Site Left Radial Arterial Blood Carboxyhemoglobin 1.0 Arterial Blood Methemoglobin 0.5 Blood Gas A-a O2 Differential 58.4 H Oxyhemoglobin Percent 96.1 Total Hemoglobin 8.9 L Blood Gas Temperature 37.0 Blood Gas Modality nsal cannula FiO2 27.0 Blood Gas Notified Whom jmd Blood Gas Notified Time 02/24/2017 3:27:41 PM Bedside Glucose 100 White Blood Count 25.1 #H Red Blood Count 2.43 L Hemoglobin 8.1 L Hematocrit 21.3 L Mean Corpuscular Volume 87.7 Mean Corpuscular Hemoglobin 33.3 H Mean Corpuscular Hemoglobin Concent 38.0 H Red Cell Distribution Width 18.4 H Platelet Count 60 #L Mean Platelet Volume 11.2 H Neutrophils % 90.0 H Band Neutrophils % 5.0 Lymphocytes % 1.0 L Monocytes % 3.0 Eosinophils % Metamyelocytes % 1.0 H Neutrophils # 22.6 H Lymphocytes # 0.3 L Monocytes # 0.5 Eosinophils # 0.3 Metamyelocytes # 0.3 Platelet Estimate PLT APPEAR DECREASED Clumped Platelets FEW Giant Platelets OCCASIONAL Poikilocytosis 1+ Anisocytosis 1+ Spherocytes FEW Acanthocytes FEW Schistocytes OCCASIONAL Sodium Level 123 L Potassium Level 4.0 Chloride Level 94 L Carbon Dioxide Level 17 L Anion Gap 16 Blood Urea Nitrogen 88 H Creatinine 2.78 H Glucose Level 90 Calcium Level 9.3 Ammonia 95 H Lactic Acid Level 2.4 H Test 02/25/17 04:35 02/25/17 07:01 White Blood Count 22.4 H Red Blood Count 2.27 L Hemoglobin 7.5 L Hematocrit 19.9 L Mean Corpuscular Volume 87.7 Mean Corpuscular Hemoglobin 33.0 Mean Corpuscular Hemoglobin Concent 37.7 H Red Cell Distribution Width 18.7 H Platelet Count 52 L Mean Platelet Volume 11.6 H Neutrophils % 90.4 H Lymphocytes % 2.8 L Monocytes % 6.0 Eosinophils % 0.2 Basophils % 0.0 Nucleated Red Blood Cells % 0.0 Neutrophils # 20.2 H Lymphocytes # 0.6 L Monocytes # 1.3 H Eosinophils # 0.0 Basophils # 0.0 Nucleated Red Blood Cells # 0.0 Sodium Level 125 L Potassium Level 4.0 Chloride Level 95 L Carbon Dioxide Level 16 L Anion Gap 18 H Blood Urea Nitrogen 93 H Creatinine 3.05 H Glucose Level 103 Calcium Level 9.5 Total Bilirubin 12.1 H Direct Bilirubin 8.30 H Indirect Bilirubin 3.8 H Aspartate Amino Transf (AST/SGOT) 75 H Alanine Aminotransferase (ALT/SGPT) 47 Alkaline Phosphatase 196 H Total Protein 6.3 Albumin 2.4 L Globulin 3.90 H Albumin/Globulin Ratio 0.61 Lab Scanned Report BLOOD TRANSFUSION Medications Medications Current Medications Multivitamins Therapeutic (Theragran) 1 tab DAILY PO Last administered on 11:12; Admin Dose 1 TAB; Start 02/06/17 at 09:00 Thiamine HCl (Vitamin B1) 100 mg DAILY PO Last administered on 02/25/17 11:12; Admin Dose 100 MG; Start 02/06/17 at 09:00 Pantoprazole (Protonix Tab) 40 mg DAILY@06 PO Last administered on 02/25/17 05: 47; Admin Dose 40 MG; Start 02/06/17 at 06:00 Rifaximin (Xifaxan) 550 mg BID PO Last administered on 02/25/17 11:12; Admin Dose 550 MG; Start 02/06/17 at 09:00 Folic Acid (Folic Acid) 1 mg DAILY PO Last administered on 02/25/17 11:12; Admin Dose 1 MG; Start 02/06/17 at 09:00 Aripiprazole (Abilify) 1 mg HS PO Last administered on 02/24/17 21:02; Admin Dose 1 MG; Start 02/06/17 at 21:00 Morphine Sulfate (morphine) 2 mg Q3H PRN IV PAIN Last administered on 02/23/17 01:40; Admin Dose 2 MG; Start 02/06/17 at 01:00 Citric Acid/ Sodium Citrate (Bicitra) 30 ml TID PO Last administered on 11:13; Admin Dose 30 ML; Start 02/06/17 at 21:00 Propranolol HCl (Inderal) 10 mg BID PO ; Start 02/10/17 at 21:00; Status Future Hold Ondansetron HCl (Zofran Inj) 4 mg Q6H PRN IV NAUSEA AND/OR VOMITING Last administered on 02/16/17 18:01; Admin Dose 4 MG; Start 02/12/17 at 09:30 Sodium Chloride (Nacl) 1 gm BID PO Last administered on 02/25/17 11:12; Admin Dose 1 GM; Start 02/16/17 at 21:00 IV Flush 10 ml 10 ml PRN PRN IV IV PROTOCOL; Start 02/18/17 at 16:00 Phytonadione/ Dextrose (Vitamin K/D5W) 50.5 ml @ 101 mls/hr DAILY IVPB Last administered on 02/25/17 11:11; Admin Dose 101 MLS/HR; Start 02/23/17 at 15:30; Stop 02/26/17 at 15:29 Furosemide (Lasix) 20 mg DAILY PO Last administered on 02/25/17 11:12; Admin Dose 20 MG; Start 02/24/17 at 09:00 Lactulose 100 ml 100 ml Q6 HI Last administered on 02/25/17 05:47; Admin Dose 100 ML; Start 02/24/17 at 18:00 Linezolid 300 ml @ 300 mls/hr Q12 IVPB Last administered on 02/25/17 11:12; Admin Dose 300 MLS/HR; Start 02/24/17 at 18:00 Meropenem 1 gm/ Sodium Chloride 100 ml @ 200 mls/hr Q12 IVPB Last administered on 02/25/17 11:11; Admin Dose 200 MLS/HR; Start 02/24/17 at 21:00 Dextrose/Sodium Chloride (D5-1/2ns) 1,000 ml @ 40 mls/hr Q24H IV Last administered on 02/24/17 21:18; Admin Dose 40 MLS/HR; Start 02/24/17 at 21:00 Lactulose (Enulose) 30 gm Q6 PO ; Start 02/25/17 at 18:00 JANKI YOUNGBLOOD NP Feb 25, 2017 13:56 JANKI YOUNGBLOOD NP Feb 25, 2017 13:56
--- NOTE | 2017-02-25 16:07 | PN ---
Date/Time of Note Date/Time of Note DATE: 02/25/17 TIME: 16:02 Assessment/Plan VTE Prophylaxis VTE Prophylaxis Intervention: SCD's Lines/Catheters IV [facility]ter [facility] (from [facility]): PICC Line Central line still needed: Yes Urinary Cath still in place: No Assessment/Plan Chief Complaint/Hosp Course Patient is lethargic but easily arousable, is one-to-one sitter due to altered mental status yesterday. Patient has ascites and bilateral lower extremities wound site with oozing serous fluid. ASSESSMENT AND PLAN: - Hepatic encephalopathy, continue lactulose as needed if patient is not able to take p.o., monitor ammonia level. - Alcoholic liver cirrhosis. Dr. Zelaya is following in gastroenterology consultation. - Ascites secondary to liver cirrhosis. S/p paracentesis on 02/17. - Acute kidney injury, rule out hepatorenal syndrome. Dr. Robles is following in nephrology consultation. - Human immunodeficiency virus positive status. Dr. Shelby sosa is following in infectious disease consultation. - Thrombocytopenia secondary to alcoholic liver cirrhosis. Dr. Cabral is following in hematology consultation. - Microcytic anemia. Status post transfusion, continue to monitor hemoglobin and hematocrit. - Coagulopathy, status post FFP and vitamin K. - Cholelithiasis. Status post MRCP, no evidence of obstruction of bile duct stone. - Hyponatremia secondary to liver cirrhosis. Prognosis is poor, patient's family is meeting to discuss possible hospice. Further recommendations based on clinical course. Plan of care discussed with Dr. James. Problems: Exam/Review of Systems Vital Signs Vitals Vital Signs Date Time Temp Pulse Resp B/P Pulse Ox O2 Delivery O2 Flow Rate FiO2 02/25/17 07:28 97.8 101 19 115/55 99 02/24/17 21:40 Nasal Cannula 2.0 Intake and Output 02/24/17 02/24/17 02/25/17 15:00 23:00 07:00 Intake Total 50.5 ml 660 ml 70 ml Output Total 600 ml Balance 50.5 ml 660 ml -530 ml Exam Constitutional: alert, oriented, other (Jaundiced) Eyes: icteric Neck: supple Respiratory: clear to auscultation Cardiovascular: nl pulses, regular rate and rhythm Gastrointestinal: distended, soft, ascites Musculoskeletal: nl extremities to inspection Extremities: normal pulses, edema, oozing wounds bilateral extremities Results Result Diagram: 02/25/17 0435 02/25/17 0435 Results 24 hrs Laboratory Tests Test 02/24/17 17:48 02/25/17 04:35 02/25/17 07:01 Lactic Acid Level 2.4 H White Blood Count 22.4 H Red Blood Count 2.27 L Hemoglobin 7.5 L Hematocrit 19.9 L Mean Corpuscular Volume 87.7 Mean Corpuscular Hemoglobin 33.0 Mean Corpuscular Hemoglobin Concent 37.7 H Red Cell Distribution Width 18.7 H Platelet Count 52 L Mean Platelet Volume 11.6 H Neutrophils % 90.4 H Lymphocytes % 2.8 L Monocytes % 6.0 Eosinophils % 0.2 Basophils % 0.0 Nucleated Red Blood Cells % 0.0 Neutrophils # 20.2 H Lymphocytes # 0.6 L Monocytes # 1.3 H Eosinophils # 0.0 Basophils # 0.0 Nucleated Red Blood Cells # 0.0 Sodium Level 125 L Potassium Level 4.0 Chloride Level 95 L Carbon Dioxide Level 16 L Anion Gap 18 H Blood Urea Nitrogen 93 H Creatinine 3.05 H Glucose Level 103 Calcium Level 9.5 Total Bilirubin 12.1 H Direct Bilirubin 8.30 H Indirect Bilirubin 3.8 H Aspartate Amino Transf (AST/SGOT) 75 H Alanine Aminotransferase (ALT/SGPT) 47 Alkaline Phosphatase 196 H Total Protein 6.3 Albumin 2.4 L Globulin 3.90 H Albumin/Globulin Ratio 0.61 Lab Scanned Report BLOOD TRANSFUSION Medications Medications Current Medications Multivitamins Therapeutic (Theragran) 1 tab DAILY PO Last administered on 11:12; Admin Dose 1 TAB; Start 02/06/17 at 09:00 Thiamine HCl (Vitamin B1) 100 mg DAILY PO Last administered on 02/25/17 11:12; Admin Dose 100 MG; Start 02/06/17 at 09:00 Pantoprazole (Protonix Tab) 40 mg DAILY@06 PO Last administered on 02/25/17 05: 47; Admin Dose 40 MG; Start 02/06/17 at 06:00 Rifaximin (Xifaxan) 550 mg BID PO Last administered on 02/25/17 11:12; Admin Dose 550 MG; Start 02/06/17 at 09:00 Folic Acid (Folic Acid) 1 mg DAILY PO Last administered on 02/25/17 11:12; Admin Dose 1 MG; Start 02/06/17 at 09:00 Aripiprazole (Abilify) 1 mg HS PO Last administered on 02/24/17 21:02; Admin Dose 1 MG; Start 02/06/17 at 21:00 Morphine Sulfate (morphine) 2 mg Q3H PRN IV PAIN Last administered on 02/23/17 01:40; Admin Dose 2 MG; Start 02/06/17 at 01:00 Citric Acid/ Sodium Citrate (Bicitra) 30 ml TID PO Last administered on 11:13; Admin Dose 30 ML; Start 02/06/17 at 21:00 Propranolol HCl (Inderal) 10 mg BID PO ; Start 02/10/17 at 21:00; Status Future Hold Ondansetron HCl (Zofran Inj) 4 mg Q6H PRN IV NAUSEA AND/OR VOMITING Last administered on 02/16/17 18:01; Admin Dose 4 MG; Start 02/12/17 at 09:30 Sodium Chloride (Nacl) 1 gm BID PO Last administered on 02/25/17 11:12; Admin Dose 1 GM; Start 02/16/17 at 21:00 IV Flush 10 ml 10 ml PRN PRN IV IV PROTOCOL; Start 02/18/17 at 16:00 Phytonadione/ Dextrose (Vitamin K/D5W) 50.5 ml @ 101 mls/hr DAILY IVPB Last administered on 02/25/17 11:11; Admin Dose 101 MLS/HR; Start 02/23/17 at 15:30; Stop 02/26/17 at 15:29 Furosemide (Lasix) 20 mg DAILY PO Last administered on 02/25/17 11:12; Admin Dose 20 MG; Start 02/24/17 at 09:00 Lactulose 100 ml 100 ml Q6 PA Last administered on 02/25/17 05:47; Admin Dose 100 ML; Start 02/24/17 at 18:00 Linezolid 300 ml @ 300 mls/hr Q12 IVPB Last administered on 02/25/17 11:12; Admin Dose 300 MLS/HR; Start 02/24/17 at 18:00 Meropenem 1 gm/ Sodium Chloride 100 ml @ 200 mls/hr Q12 IVPB Last administered on 02/25/17 11:11; Admin Dose 200 MLS/HR; Start 02/24/17 at 21:00 Dextrose/Sodium Chloride (D5-1/2ns) 1,000 ml @ 40 mls/hr Q24H IV Last administered on 02/24/17t 21:18; Admin Dose 40 MLS/HR; Start 02/24/17 at 21:00 Lactulose (Enulose) 30 gm Q6 PO ; Start 02/25/17 at 18:00 ALIVIA ALVAREZ Feb 25, 2017 16:07
--- NOTE | 2017-02-25 17:52 | CONS ---
Date/Time of Note Date/Time of Note DATE: 02/25/17 TIME: 17:49 Assessment/Plan Assessment/Plan Additional Assessment/Plan 1. Hyponatremia likely secondary to decompensated liver cirrhosis. 2. Possible hepatorenal syndrome due to decompensated liver cirrhosis 3. Acute kidney injury, likely secondary to decompensated liver cirrhosis. 4. 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 5. History of recurrent ascites 6. Acute hyperkalemia, possibly secondary to Bactrim.- now resolved PLAN: - pt is not a candidate for Tolvaptan due to elevated LFTs Na 125- on Na chloride tablet to 1 gram PO TID lasix was changed to PO- pt renal function has been gradullay deteriorating, BUN 93, Cr 3.03 , tertiary care center referral for liver transplant evaluation - if he is not liver transplant candidate due to any other reason then he is not a dialysis candidate due to his overall poor prognosis. palliative care consutl to discuss goals of care lactulose for high ammonia bicitra 30ml TID for metabolic acidosis will follow up Consultation Date/Type/Reason Admit Date/Time February 05, 2017 at 18:37 Initial Consult Date 02/06/17 Type of Consultation: NEPHROLOGY Referring Provider: CARL GRANT MD 24 HR Interval Summary Free Text/Dictation not doing well, more lethargic today Exam/Review of Systems Vital Signs Vitals Vital Signs Date Time Temp Pulse Resp B/P Pulse Ox O2 Delivery O2 Flow Rate FiO2 02/25/17 07:28 97.8 101 19 115/55 99 02/24/17 21:40 Nasal Cannula 2.0 Intake and Output 02/24/17 02/24/17 02/25/17 15:00 23:00 07:00 Intake Total 50.5 ml 660 ml 70 ml Output Total 600 ml Balance 50.5 ml 660 ml -530 ml Exam Constitutional: lethargic, jaundice Respiratory: decreased BS at bases, basilar crackles Cardiovascular: S1 S2 RRR Gastrointestinal: distended, ascites Musculoskeletal: nl extremities to inspection Extremities: normal pulses, bruises, 2+ edema Neurological: intermittently confused with tense ascites Results Result Diagram: 02/25/17 0435 02/25/17 0435 Results 24 hrs Laboratory Tests Test 02/25/17 04:35 02/25/17 07:01 White Blood Count 22.4 H Red Blood Count 2.27 L Hemoglobin 7.5 L Hematocrit 19.9 L Mean Corpuscular Volume 87.7 Mean Corpuscular Hemoglobin 33.0 Mean Corpuscular Hemoglobin Concent 37.7 H Red Cell Distribution Width 18.7 H Platelet Count 52 L Mean Platelet Volume 11.6 H Neutrophils % 90.4 H Lymphocytes % 2.8 L Monocytes % 6.0 Eosinophils % 0.2 Basophils % 0.0 Nucleated Red Blood Cells % 0.0 Neutrophils # 20.2 H Lymphocytes # 0.6 L Monocytes # 1.3 H Eosinophils # 0.0 Basophils # 0.0 Nucleated Red Blood Cells # 0.0 Sodium Level 125 L Potassium Level 4.0 Chloride Level 95 L Carbon Dioxide Level 16 L Anion Gap 18 H Blood Urea Nitrogen 93 H Creatinine 3.05 H Glucose Level 103 Calcium Level 9.5 Total Bilirubin 12.1 H Direct Bilirubin 8.30 H Indirect Bilirubin 3.8 H Aspartate Amino Transf (AST/SGOT) 75 H Alanine Aminotransferase (ALT/SGPT) 47 Alkaline Phosphatase 196 H Total Protein 6.3 Albumin 2.4 L Globulin 3.90 H Albumin/Globulin Ratio 0.61 Lab Scanned Report BLOOD TRANSFUSION Medications Medications Current Medications Multivitamins Therapeutic (Theragran) 1 tab DAILY PO Last administered on 11:12; Admin Dose 1 TAB; Start 02/06/17 at 09:00 Thiamine HCl (Vitamin B1) 100 mg DAILY PO Last administered on 02/25/17 11:12; Admin Dose 100 MG; Start 02/06/17 at 09:00 Pantoprazole (Protonix Tab) 40 mg DAILY@06 PO Last administered on 02/25/17 05: 47; Admin Dose 40 MG; Start 02/06/17 at 06:00 Rifaximin (Xifaxan) 550 mg BID PO Last administered on 02/25/17 11:12; Admin Dose 550 MG; Start 02/06/17 at 09:00 Folic Acid (Folic Acid) 1 mg DAILY PO Last administered on 02/25/17 11:12; Admin Dose 1 MG; Start 02/06/17 at 09:00 Aripiprazole (Abilify) 1 mg HS PO Last administered on 02/24/17 21:02; Admin Dose 1 MG; Start 02/06/17 at 21:00 Morphine Sulfate (morphine) 2 mg Q3H PRN IV PAIN Last administered on 02/23/17 01:40; Admin Dose 2 MG; Start 02/06/17 at 01:00 Citric Acid/ Sodium Citrate (Bicitra) 30 ml TID PO Last administered on 11:13; Admin Dose 30 ML; Start 02/06/17 at 21:00 Propranolol HCl (Inderal) 10 mg BID PO ; Start 02/10/17 at 21:00; Status Future Hold Ondansetron HCl (Zofran Inj) 4 mg Q6H PRN IV NAUSEA AND/OR VOMITING Last administered on 02/16/17 18:01; Admin Dose 4 MG; Start 02/12/17 at 09:30 Sodium Chloride (Nacl) 1 gm BID PO Last administered on 02/25/17 11:12; Admin Dose 1 GM; Start 02/16/17 at 21:00 IV Flush 10 ml 10 ml PRN PRN IV IV PROTOCOL; Start 02/18/17 at 16:00 Phytonadione/ Dextrose (Vitamin K/D5W) 50.5 ml @ 101 mls/hr DAILY IVPB Last administered on 02/25/17 11:11; Admin Dose 101 MLS/HR; Start 02/23/17 at 15:30; Stop 02/26/17 at 15:29 Furosemide (Lasix) 20 mg DAILY PO Last administered on 02/25/17 11:12; Admin Dose 20 MG; Start 02/24/17 at 09:00 Lactulose 100 ml 100 ml Q6 HI Last administered on 02/25/17 05:47; Admin Dose 100 ML; Start 02/24/17 at 18:00 Linezolid 300 ml @ 300 mls/hr Q12 IVPB Last administered on 02/25/17 11:12; Admin Dose 300 MLS/HR; Start 02/24/17 at 18:00 Meropenem 1 gm/ Sodium Chloride 100 ml @ 200 mls/hr Q12 IVPB Last administered on 02/25/17 11:11; Admin Dose 200 MLS/HR; Start 02/24/17 at 21:00 Dextrose/Sodium Chloride (D5-1/2ns) 1,000 ml @ 40 mls/hr Q24H IV Last administered on 02/24/17 21:18; Admin Dose 40 MLS/HR; Start 02/24/17 at 21:00 ELLIOT PARRA MD Feb 25, 2017 17:52
[2017-02-25] MEDS ORDERED: LACTULOSE 30ML CUP PO SCH (18:00)
[2017-02-25 19:34] VITALS: BP 126/69; RESP 20
[2017-02-25] MEDS: DEXTROSE 5%-0.45% NACL 1,000 ML IV SCH (21:00)
[2017-02-25] MEDS: ARIPIPRAZOLE 2 MG TAB PO SCH (21:00)
--- NOTE | 2017-02-25 21:31 | CONS ---
Date/Time of Note Date/Time of Note DATE: 02/25/17 TIME: 21:28 Assessment/Plan Assessment/Plan Additional Assessment/Plan Assessment/Plan Additional Assessment/Plan 1. Hyponatremia secondary to liver cirrhosis.persistent NA125 2. Acute kidney injury without heptorenal syndrome, likely secondary to prerenal azotemia in the setting of decompensated liver cirrhosis. 3. 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 History of recurrent ascites, status post last paracentesis done 3 weeks ago , 1.6 liters of fluid was removed. 5. Acute hyperkalemia, possibly secondary to Bactrim. 6. H/o ascites, status post a paracentesis 3 L of fluid was removed 7. Pedal edema 4+ 8. False-positive HIV 9.thrombocytopenia PLAN: - EtOH cessation counseled - [facility] referral for liver transplant evaluation if patient is not an active drinker - continue lactulose and rifaximen for hepatic encephalopathy - continue low dose lasix, titrate as tolerated by kidney function P.o. fluid restriction case management to make arrangement to [facility] Consultation Date/Type/Reason Admit Date/Time February 05, 2017 at 18:37 Initial Consult Date 02/06/17 Type of Consultation: NEPHROLOGY Referring Provider: CARL GRANT MD 24 HR Interval Summary Subjective hx not possible: pt critical Constitutional: disoriented Exam/Review of Systems Vital Signs Vitals Vital Signs Date Time Temp Pulse Resp B/P Pulse Ox O2 Delivery O2 Flow Rate FiO2 02/25/17 19:34 97.4 90 20 126/69 98 02/24/17 21:40 Nasal Cannula 2.0 Intake and Output 02/24/17 02/24/17 02/25/17 15:00 23:00 07:00 Intake Total 50.5 ml 660 ml 70 ml Output Total 600 ml Balance 50.5 ml 660 ml -530 ml Exam Psych: confusion Respiratory: clear to auscultation, normal air movement Cardiovascular: nl pulses, regular rate and rhythm Gastrointestinal: ascites, nl liver, spleen, non-tender, soft Extremities: pitting pedal edema Neurological: confused Results Result Diagram: 02/25/17 0435 02/25/17 0435 Results 24 hrs Laboratory Tests Test 02/25/17 04:35 02/25/17 07:01 White Blood Count 22.4 H Red Blood Count 2.27 L Hemoglobin 7.5 L Hematocrit 19.9 L Mean Corpuscular Volume 87.7 Mean Corpuscular Hemoglobin 33.0 Mean Corpuscular Hemoglobin Concent 37.7 H Red Cell Distribution Width 18.7 H Platelet Count 52 L Mean Platelet Volume 11.6 H Neutrophils % 90.4 H Lymphocytes % 2.8 L Monocytes % 6.0 Eosinophils % 0.2 Basophils % 0.0 Nucleated Red Blood Cells % 0.0 Neutrophils # 20.2 H Lymphocytes # 0.6 L Monocytes # 1.3 H Eosinophils # 0.0 Basophils # 0.0 Nucleated Red Blood Cells # 0.0 Sodium Level 125 L Potassium Level 4.0 Chloride Level 95 L Carbon Dioxide Level 16 L Anion Gap 18 H Blood Urea Nitrogen 93 H Creatinine 3.05 H Glucose Level 103 Calcium Level 9.5 Total Bilirubin 12.1 H Direct Bilirubin 8.30 H Indirect Bilirubin 3.8 H Aspartate Amino Transf (AST/SGOT) 75 H Alanine Aminotransferase (ALT/SGPT) 47 Alkaline Phosphatase 196 H Total Protein 6.3 Albumin 2.4 L Globulin 3.90 H Albumin/Globulin Ratio 0.61 Lab Scanned Report BLOOD TRANSFUSION Medications Medications Current Medications Multivitamins Therapeutic (Theragran) 1 tab DAILY PO Last administered on 11:12; Admin Dose 1 TAB; Start 02/06/17 at 09:00 Thiamine HCl (Vitamin B1) 100 mg DAILY PO Last administered on 02/25/17 11:12; Admin Dose 100 MG; Start 02/06/17 at 09:00 Pantoprazole (Protonix Tab) 40 mg DAILY@06 PO Last administered on 02/25/17 05: 47; Admin Dose 40 MG; Start 02/06/17 at 06:00 Rifaximin (Xifaxan) 550 mg BID PO Last administered on 02/25/17 11:12; Admin Dose 550 MG; Start 02/06/17 at 09:00 Folic Acid (Folic Acid) 1 mg DAILY PO Last administered on 02/25/17 11:12; Admin Dose 1 MG; Start 02/06/17 at 09:00 Aripiprazole (Abilify) 1 mg HS PO Last administered on 02/24/17 21:02; Admin Dose 1 MG; Start 02/06/17 at 21:00 Morphine Sulfate (morphine) 2 mg Q3H PRN IV PAIN Last administered on 02/23/17 01:40; Admin Dose 2 MG; Start 02/06/17 at 01:00 Citric Acid/ Sodium Citrate (Bicitra) 30 ml TID PO Last administered on 11:13; Admin Dose 30 ML; Start 02/06/17 at 21:00 Propranolol HCl (Inderal) 10 mg BID PO ; Start 02/10/17 at 21:00; Status Future Hold Ondansetron HCl (Zofran Inj) 4 mg Q6H PRN IV NAUSEA AND/OR VOMITING Last administered on 02/16/17 18:01; Admin Dose 4 MG; Start 02/12/17 at 09:30 Sodium Chloride (Nacl) 1 gm BID PO Last administered on 02/25/17 11:12; Admin Dose 1 GM; Start 02/16/17 at 21:00 IV Flush 10 ml 10 ml PRN PRN IV IV PROTOCOL; Start 02/18/17 at 16:00 Phytonadione/ Dextrose (Vitamin K/D5W) 50.5 ml @ 101 mls/hr DAILY IVPB Last administered on 02/25/17 11:11; Admin Dose 101 MLS/HR; Start 02/23/17 at 15:30; Stop 02/26/17 at 15:29 Furosemide (Lasix) 20 mg DAILY PO Last administered on 02/25/17 11:12; Admin Dose 20 MG; Start 02/24/17 at 09:00 Lactulose 100 ml 100 ml Q6 AR Last administered on 02/25/17 05:47; Admin Dose 100 ML; Start 02/24/17 at 18:00 Linezolid 300 ml @ 300 mls/hr Q12 IVPB Last administered on 02/25/17 11:12; Admin Dose 300 MLS/HR; Start 02/24/17 at 18:00 Meropenem 1 gm/ Sodium Chloride 100 ml @ 200 mls/hr Q12 IVPB Last administered on 02/25/17 20:27; Admin Dose 200 MLS/HR; Start 02/24/17 at 21:00 Dextrose/Sodium Chloride (D5-1/2ns) 1,000 ml @ 40 mls/hr Q24H IV Last administered on 02/24/17 21:18; Admin Dose 40 MLS/HR; Start 02/24/17 at 21:00 IGNACIA HERR MD Feb 25, 2017 21:31
[2017-02-26] MEDS: LACTULOSE ENEMA 1,000 ML BTL PR SCH ×4 (00:58→15:59)
[2017-02-26] MEDS: DEXTROSE 5%-0.45% NACL 1,000 ML IV SCH (03:11)
[2017-02-26 05:05] LABS: ADD SCAN DIFF NO
[2017-02-26 05:13] LABS: ABNORMAL IP MESSAGE 1; BASOPHILS % 0.1 % (0.0-2.0); EOSINOPHILS # 0.1 10^3/ul (0.0-0.5); EOSINOPHILS % 0.9 % (0.0-7.0); HEMATOCRIT 22.7 % (42.0-52.0); HEMOGLOBIN 8.1 g/dl (14.0-18.0); LYMPHOCYTES # 0.8 10^3/ul (0.8-2.9); LYMPHOCYTES % 5.2 % (15.0-51.0); MEAN CORPUSCULAR HGB CONC 35.7 g/dl (32.0-37.0); MEAN PLATELET VOLUME 12.2 fl (7.4-10.4); MONOCYTE # 0.9 10^3/ul (0.3-0.9); MONOCYTES % 6.3 % (0.0-11.0); NEUTROPHIL # 12.9 10^3/ul (1.6-7.5); NEUTROPHILS % 86.9 % (39.0-77.0); PLATELET COUNT 51 10^3/UL (140-415); RED BLOOD COUNT 2.61 10^6/ul (4.70-6.10); WHITE BLOOD COUNT 14.8 10^3/ul (4.8-10.8)
[2017-02-26 05:35] LABS: CALCIUM 9.3 mg/dl (8.4-10.2); CREATININE 3.64 mg/dl (0.61-1.24); POTASSIUM 3.9 mmol/L (3.5-5.1)
[2017-02-26] MEDS: PANTOPRAZOLE (EC) 40 MG TAB PO SCH (06:00)
[2017-02-26 08:00] VITALS: BP 103/55; RESP 20
[2017-02-26] MEDS: SODIUM CHLORIDE 1 GM TAB PO SCH ×2 (09:00→21:00)
[2017-02-26] MEDS: FOLIC ACID 1 MG TAB PO SCH (09:00)
[2017-02-26] MEDS: MULTIVITAMINS THERAPEUTIC TAB PO SCH (09:00)
[2017-02-26] MEDS: THIAMINE 100 MG TAB PO SCH (09:00)
[2017-02-26] MEDS: RIFAXIMIN 550 MG TAB PO SCH ×2 (09:00→21:00)
[2017-02-26] MEDS: CITRIC ACID/SODIUM CITRATE 15 ML CUP PO SCH ×3 (09:00→21:00)
[2017-02-26] MEDS: FUROSEMIDE 20 MG TAB PO SCH (09:00)
[2017-02-26] MEDS: LINEZOLID 600 MG/D5W (PMX) 300 ML IVPB SCH ×2 (11:08→21:51)
[2017-02-26] MEDS: MEROPENEM 1 GM in SOD CHLORIDE 0.9% 100 ML IVPB SCH (11:08)
[2017-02-26] MEDS: PHYTONADIONE 5 MG in DEXTROSE 5% 50 ML IVPB SCH (11:09)
--- NOTE | 2017-02-26 11:57 | CONS ---
Date/Time of Note Date/Time of Note DATE: 02/26/17 TIME: 11:54 Assessment/Plan Assessment/Plan Chief Complaint/Hosp Course IMPRESSION: 1. Exertional chest pain, assess for acute coronary syndrome.-negative troponin x 3. EF >65% by echo this admit. CP resolved 2. Dyspnea on exertion, assess for congestive heart failure.-increased BNP,. 3. Abnormal electrocardiogram, assess for acute coronary syndrome.-negative troponin x 3/NL EF by echo >65% this admit 4. Liver cirrhosis. 5. Nausea, vomiting. 6. ETOH abuse. 7. Polysubstance abuse. 8. Human immunodeficiency virus positivity. 9. Renal failure-worsening 10. Hyponatremia. 11. Coagulopathy. 12. Anemia 13. Thrombocytopenia. 14.Hypotension-intermittent/labile 15.Hyponatremia 16.Encephalopathy-worsening REcc: -Continue abx's and f/u cx data -Continue gentle diuresis following NA and BP closely as tolerated only given worsening renal function with possible need to hold altogether -Continue salt tabs -Holding propranolol given hypotension -Continue PPI -Continue lactulose -Continue vitamin K Problems: Consultation Date/Type/Reason Admit Date/Time February 05, 2017 at 18:37 Initial Consult Date 02/07/17 Type of Consultation: cardiology Reason for Consultation Chest pain Referring Provider: CARL GRANT MD Exam/Review of Systems Vital Signs Vitals Vital Signs Date Time Temp Pulse Resp B/P Pulse Ox O2 Delivery O2 Flow Rate FiO2 02/26/17 08:00 96.2 86 20 103/55 97 02/24/17 21:40 Nasal Cannula 2.0 Intake and Output 02/25/17 02/25/17 02/26/17 15:00 23:00 07:00 Intake Total 800.5 ml 520 ml 1000 ml Balance 800.5 ml 520 ml 1000 ml Exam Review of Systems: CONSTITUTIONAL: No fevers, chills. PULMONARY: No sob CARDIOVASCULAR: No chest pain/palpitations GASTROINTESTINAL: No nausea/vomiting. GENITOURINARY: No hematuria/dysuria. MUSCULOSKELETAL: No myagias/arthalgias. PSYCHIATRIC: The patient denies depression. NEUROLOGIC: lethargic/encephalopathy Constitutional: other (sleeping) Head: normocephalic ENMT: mucosa pink and moist Neck: jvd (9 cm water), supple Respiratory: diminished breath sounds (at bases/B) Cardiovascular: regular rate and rhythm Gastrointestinal: ascites, distended, non-tender, soft Extremities: pitting pedal edema (bilateral) Neurological: other (No focal deficits) Results Result Diagram: 02/26/17 0440 02/26/17 0440 Results 24 hrs Laboratory Tests Test 02/26/17 04:40 02/26/17 08:02 White Blood Count 14.8 #H Red Blood Count 2.61 L Hemoglobin 8.1 L Hematocrit 22.7 L Mean Corpuscular Volume 87.0 Mean Corpuscular Hemoglobin 31.0 Mean Corpuscular Hemoglobin Concent 35.7 Red Cell Distribution Width 19.0 H Platelet Count 51 L Mean Platelet Volume 12.2 H Neutrophils % 86.9 H Lymphocytes % 5.2 L Monocytes % 6.3 Eosinophils % 0.9 Basophils % 0.1 Nucleated Red Blood Cells % 0.0 Neutrophils # 12.9 H Lymphocytes # 0.8 Monocytes # 0.9 Eosinophils # 0.1 Basophils # 0.0 Nucleated Red Blood Cells # 0.0 Sodium Level 125 L Potassium Level 3.9 Chloride Level 94 L Carbon Dioxide Level 18 L Anion Gap 17 H Blood Urea Nitrogen 104 H Creatinine 3.64 H Glucose Level 118 Calcium Level 9.3 Ammonia 80 H Lab Scanned Report BLOOD TRANSFUSION Medications Medications Current Medications Multivitamins Therapeutic (Theragran) 1 tab DAILY PO Last administered on 11:12; Admin Dose 1 TAB; Start 02/06/17 at 09:00 Thiamine HCl (Vitamin B1) 100 mg DAILY PO Last administered on 02/25/17 11:12; Admin Dose 100 MG; Start 02/06/17 at 09:00 Pantoprazole (Protonix Tab) 40 mg DAILY@06 PO Last administered on 02/25/17 05: 47; Admin Dose 40 MG; Start 02/06/17 at 06:00 Rifaximin (Xifaxan) 550 mg BID PO Last administered on 02/25/17 11:12; Admin Dose 550 MG; Start 02/06/17 at 09:00 Folic Acid (Folic Acid) 1 mg DAILY PO Last administered on 02/25/17 11:12; Admin Dose 1 MG; Start 02/06/17 at 09:00 Aripiprazole (Abilify) 1 mg HS PO Last administered on 02/24/17 21:02; Admin Dose 1 MG; Start 02/06/17 at 21:00 Morphine Sulfate (morphine) 2 mg Q3H PRN IV PAIN Last administered on 02/23/17 01:40; Admin Dose 2 MG; Start 02/06/17 at 01:00 Citric Acid/ Sodium Citrate (Bicitra) 30 ml TID PO Last administered on 11:13; Admin Dose 30 ML; Start 02/06/17 at 21:00 Propranolol HCl (Inderal) 10 mg BID PO ; Start 02/10/17 at 21:00; Status Future Hold Ondansetron HCl (Zofran Inj) 4 mg Q6H PRN IV NAUSEA AND/OR VOMITING Last administered on 02/16/17 18:01; Admin Dose 4 MG; Start 02/12/17 at 09:30 Sodium Chloride (Nacl) 1 gm BID PO Last administered on 02/25/17 11:12; Admin Dose 1 GM; Start 02/16/17 at 21:00 IV Flush 10 ml 10 ml PRN PRN IV IV PROTOCOL; Start 02/18/17 at 16:00 Phytonadione/ Dextrose (Vitamin K/D5W) 50.5 ml @ 101 mls/hr DAILY IVPB Last administered on 02/26/17 11:09; Admin Dose 101 MLS/HR; Start 02/23/17 at 15:30; Stop 02/26/17 at 15:29 Furosemide (Lasix) 20 mg DAILY PO Last administered on 02/25/17 11:12; Admin Dose 20 MG; Start 02/24/17 at 09:00 Lactulose 100 ml 100 ml Q6 [place] Last administered on 02/26/17 06:02; Admin Dose 100 ML; Start 02/24/17 at 18:00 Linezolid 300 ml @ 300 mls/hr Q12 IVPB Last administered on 02/26/17 11:08; Admin Dose 300 MLS/HR; Start 02/24/17 at 18:00 Meropenem 1 gm/ Sodium Chloride 100 ml @ 200 mls/hr Q12 IVPB Last administered on 02/26/17 11:08; Admin Dose 200 MLS/HR; Start 02/24/17 at 21:00 Dextrose/Sodium Chloride (D5-1/2ns) 1,000 ml @ 40 mls/hr Q24H IV Last administered on 02/26/17t 03:11; Admin Dose 40 MLS/HR; Start 02/24/17 at 21:00 SHAY COTTRELL Feb 26, 2017 11:57
--- NOTE | 2017-02-26 12:19 | PN ---
Date/Time of Note Date/Time of Note DATE: 02/26/17 TIME: 12:18 Assessment/Plan VTE Prophylaxis VTE Prophylaxis Intervention: other Lines/Catheters IV [facility]ter Type (from [facility]): PICC Line Central line still needed: Yes Urinary Cath still in place: No Assessment/Plan Chief Complaint/Hosp Course - Liver cirrhosis. Dr. Zelaya is following in cart in gastroenterology consultation. - Ascites secondary to liver cirrhosis. - Hepatic encephalopathy. Continue lactulose and rifaximin. Monitor ammonia level. - Acute kidney injury, rule out hepatorenal syndrome. Dr. Robles is following in nephrology consultation. - Human immunodeficiency virus positive status. Dr. Ryan is following in infectious disease consultation. - Thrombocytopenia secondary to alcoholic liver cirrhosis and possible human immunodeficiency virus. Dr. Cabral is following in hematology consultation. - Microcytic anemia. Status post transfusion, continue to monitor hemoglobin and hematocrit. - Coagulopathy. - Cholelithiasis. - Hyponatremia Problems: Subjective 24 Hr Interval Summary Free Text/Dictation Patient has no complaints Exam/Review of Systems Vital Signs Vitals Vital Signs Date Time Temp Pulse Resp B/P Pulse Ox O2 Delivery O2 Flow Rate FiO2 02/26/17 08:00 96.2 86 20 103/55 97 02/24/17 21:40 Nasal Cannula 2.0 Intake and Output 02/25/17 02/25/17 02/26/17 15:00 23:00 07:00 Intake Total 800.5 ml 520 ml 1000 ml Balance 800.5 ml 520 ml 1000 ml Exam Constitutional: well developed Head: atraumatic, normocephalic Neck: supple Respiratory: diminished breath sounds Cardiovascular: regular rate and rhythm Gastrointestinal: non-tender, soft Extremities: normal pulses Results Result Diagram: 02/26/17 0440 02/26/17 0440 Results 24 hrs Laboratory Tests Test 02/26/17 04:40 02/26/17 08:02 White Blood Count 14.8 #H Red Blood Count 2.61 L Hemoglobin 8.1 L Hematocrit 22.7 L Mean Corpuscular Volume 87.0 Mean Corpuscular Hemoglobin 31.0 Mean Corpuscular Hemoglobin Concent 35.7 Red Cell Distribution Width 19.0 H Platelet Count 51 L Mean Platelet Volume 12.2 H Neutrophils % 86.9 H Lymphocytes % 5.2 L Monocytes % 6.3 Eosinophils % 0.9 Basophils % 0.1 Nucleated Red Blood Cells % 0.0 Neutrophils # 12.9 H Lymphocytes # 0.8 Monocytes # 0.9 Eosinophils # 0.1 Basophils # 0.0 Nucleated Red Blood Cells # 0.0 Sodium Level 125 L Potassium Level 3.9 Chloride Level 94 L Carbon Dioxide Level 18 L Anion Gap 17 H Blood Urea Nitrogen 104 H Creatinine 3.64 H Glucose Level 118 Calcium Level 9.3 Ammonia 80 H Lab Scanned Report BLOOD TRANSFUSION Medications Medications Current Medications Multivitamins Therapeutic (Theragran) 1 tab DAILY PO Last administered on 11:12; Admin Dose 1 TAB; Start 02/06/17 at 09:00 Thiamine HCl (Vitamin B1) 100 mg DAILY PO Last administered on 02/25/17 11:12; Admin Dose 100 MG; Start 02/06/17 at 09:00 Pantoprazole (Protonix Tab) 40 mg DAILY@06 PO Last administered on 02/25/17 05: 47; Admin Dose 40 MG; Start 02/06/17 at 06:00 Rifaximin (Xifaxan) 550 mg BID PO Last administered on 02/25/17 11:12; Admin Dose 550 MG; Start 02/06/17 at 09:00 Folic Acid (Folic Acid) 1 mg DAILY PO Last administered on 02/25/17 11:12; Admin Dose 1 MG; Start 02/06/17 at 09:00 Aripiprazole (Abilify) 1 mg HS PO Last administered on 02/24/17 21:02; Admin Dose 1 MG; Start 02/06/17 at 21:00 Morphine Sulfate (morphine) 2 mg Q3H PRN IV PAIN Last administered on 02/23/17 01:40; Admin Dose 2 MG; Start 02/06/17 at 01:00 Citric Acid/ Sodium Citrate (Bicitra) 30 ml TID PO Last administered on 11:13; Admin Dose 30 ML; Start 02/06/17 at 21:00 Propranolol HCl (Inderal) 10 mg BID PO ; Start 02/10/17 at 21:00; Status Future Hold Ondansetron HCl (Zofran Inj) 4 mg Q6H PRN IV NAUSEA AND/OR VOMITING Last administered on 02/16/17 18:01; Admin Dose 4 MG; Start 02/12/17 at 09:30 Sodium Chloride (Nacl) 1 gm BID PO Last administered on 02/25/17 11:12; Admin Dose 1 GM; Start 02/16/17 at 21:00 IV Flush 10 ml 10 ml PRN PRN IV IV PROTOCOL; Start 02/18/17 at 16:00 Phytonadione/ Dextrose (Vitamin K/D5W) 50.5 ml @ 101 mls/hr DAILY IVPB Last administered on 02/26/17 11:09; Admin Dose 101 MLS/HR; Start 02/23/17 at 15:30; Stop 02/26/17 at 15:29 Furosemide (Lasix) 20 mg DAILY PO Last administered on 02/25/17 11:12; Admin Dose 20 MG; Start 02/24/17 at 09:00 Lactulose 100 ml 100 ml Q6 UT Last administered on 02/26/17 06:02; Admin Dose 100 ML; Start 02/24/17 at 18:00 Linezolid 300 ml @ 300 mls/hr Q12 IVPB Last administered on 02/26/17 11:08; Admin Dose 300 MLS/HR; Start 02/24/17 at 18:00 Meropenem 1 gm/ Sodium Chloride 100 ml @ 200 mls/hr Q12 IVPB Last administered on 02/26/17 11:08; Admin Dose 200 MLS/HR; Start 02/24/17 at 21:00 Dextrose/Sodium Chloride (D5-1/2ns) 1,000 ml @ 40 mls/hr Q24H IV Last administered on 02/26/17 03:11; Admin Dose 40 MLS/HR; Start 02/24/17 at 21:00 TRISH TAMAYO Feb 26, 2017 12:19
--- NOTE | 2017-02-26 15:09 | CONS ---
Date/Time of Note Date/Time of Note DATE: 02/26/17 TIME: 15:03 Assessment/Plan Assessment/Plan Additional Assessment/Plan 1. Hyponatremia likely secondary to decompensated liver cirrhosis. 2. Possible hepatorenal syndrome due to decompensated liver cirrhosis 3. Acute kidney injury, likely secondary to decompensated liver cirrhosis. 4. 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 5. History of recurrent ascites 6. Acute hyperkalemia, possibly secondary to Bactrim.- now resolved PLAN: - pt is not a candidate for Tolvaptan due to elevated LFTs Na 125- on Na chloride tablet to 1 gram PO TID lasix was changed to PO- pt renal function has been gradullay deteriorating, BUN 93, Cr 3.03 , tertiary care center referral for liver transplant evaluation - if he is not liver transplant candidate due to any other reason then he is not a dialysis candidate due to his overall poor prognosis. palliative care consult to discuss goals of care lactulose for high ammonia Bicitra 30ml TID for metabolic acidosis will follow up Hospice evaluation pending Further recommendations depend upon patient's clinical course. Plan of care dw Dr Emily Robles /staff Consultation Date/Type/Reason Admit Date/Time February 05, 2017 at 18:37 Initial Consult Date 02/07/17 Type of Consultation: cardiology Referring Provider: CARL GRANT MD 24 HR Interval Summary Subjective hx not possible: pt non-verbal Constitutional: requiring IVF, requiring O2 Exam/Review of Systems Vital Signs Vitals Vital Signs Date Time Temp Pulse Resp B/P Pulse Ox O2 Delivery O2 Flow Rate FiO2 02/26/17 08:00 96.2 86 20 103/55 97 02/24/17 21:40 Nasal Cannula 2.0 Intake and Output 02/25/17 02/25/17 02/26/17 15:00 23:00 07:00 Intake Total 800.5 ml 520 ml 1000 ml Balance 800.5 ml 520 ml 1000 ml Exam Constitutional: frail Respiratory: clear to auscultation, normal air movement Cardiovascular: nl pulses, regular rate and rhythm Gastrointestinal: ascites, distended, soft Musculoskeletal: muscle weakness Extremities: edema (BUE, BLE) Neurological: lethargic Results Result Diagram: 02/26/17 0440 02/26/17 0440 Results 24 hrs Laboratory Tests Test 02/26/17 04:40 02/26/17 08:02 White Blood Count 14.8 #H Red Blood Count 2.61 L Hemoglobin 8.1 L Hematocrit 22.7 L Mean Corpuscular Volume 87.0 Mean Corpuscular Hemoglobin 31.0 Mean Corpuscular Hemoglobin Concent 35.7 Red Cell Distribution Width 19.0 H Platelet Count 51 L Mean Platelet Volume 12.2 H Neutrophils % 86.9 H Lymphocytes % 5.2 L Monocytes % 6.3 Eosinophils % 0.9 Basophils % 0.1 Nucleated Red Blood Cells % 0.0 Neutrophils # 12.9 H Lymphocytes # 0.8 Monocytes # 0.9 Eosinophils # 0.1 Basophils # 0.0 Nucleated Red Blood Cells # 0.0 Sodium Level 125 L Potassium Level 3.9 Chloride Level 94 L Carbon Dioxide Level 18 L Anion Gap 17 H Blood Urea Nitrogen 104 H Creatinine 3.64 H Glucose Level 118 Calcium Level 9.3 Ammonia 80 H Lab Scanned Report BLOOD TRANSFUSION Medications Medications Current Medications Multivitamins Therapeutic (Theragran) 1 tab DAILY PO Last administered on 11:12; Admin Dose 1 TAB; Start 02/06/17 at 09:00 Thiamine HCl (Vitamin B1) 100 mg DAILY PO Last administered on 02/25/17 11:12; Admin Dose 100 MG; Start 02/06/17 at 09:00 Pantoprazole (Protonix Tab) 40 mg DAILY@06 PO Last administered on 02/25/17 05: 47; Admin Dose 40 MG; Start 02/06/17 at 06:00 Rifaximin (Xifaxan) 550 mg BID PO Last administered on 02/25/17 11:12; Admin Dose 550 MG; Start 02/06/17 at 09:00 Folic Acid (Folic Acid) 1 mg DAILY PO Last administered on 02/25/17 11:12; Admin Dose 1 MG; Start 02/06/17 at 09:00 Aripiprazole (Abilify) 1 mg HS PO Last administered on 02/24/17 21:02; Admin Dose 1 MG; Start 02/06/17 at 21:00 Morphine Sulfate (morphine) 2 mg Q3H PRN IV PAIN Last administered on 02/23/17 01:40; Admin Dose 2 MG; Start 02/06/17 at 01:00 Citric Acid/ Sodium Citrate (Bicitra) 30 ml TID PO Last administered on 11:13; Admin Dose 30 ML; Start 02/06/17 at 21:00 Propranolol HCl (Inderal) 10 mg BID PO ; Start 02/10/17 at 21:00; Status Future Hold Ondansetron HCl (Zofran Inj) 4 mg Q6H PRN IV NAUSEA AND/OR VOMITING Last administered on 02/16/17 18:01; Admin Dose 4 MG; Start 02/12/17 at 09:30 Sodium Chloride (Nacl) 1 gm BID PO Last administered on 02/25/17 11:12; Admin Dose 1 GM; Start 02/16/17 at 21:00 IV Flush 10 ml 10 ml PRN PRN IV IV PROTOCOL; Start 02/18/17 at 16:00 Phytonadione/ Dextrose (Vitamin K/D5W) 50.5 ml @ 101 mls/hr DAILY IVPB Last administered on 02/26/17 11:09; Admin Dose 101 MLS/HR; Start 02/23/17 at 15:30; Stop 02/26/17 at 15:29 Furosemide (Lasix) 20 mg DAILY PO Last administered on 02/25/17 11:12; Admin Dose 20 MG; Start 02/24/17 at 09:00 Lactulose 100 ml 100 ml Q6 [place] Last administered on 02/26/17 06:02; Admin Dose 100 ML; Start 02/24/17 at 18:00 Linezolid 300 ml @ 300 mls/hr Q12 IVPB Last administered on 02/26/17 11:08; Admin Dose 300 MLS/HR; Start 02/24/17 at 18:00 Meropenem 1 gm/ Sodium Chloride 100 ml @ 200 mls/hr Q12 IVPB Last administered on 02/26/17 11:08; Admin Dose 200 MLS/HR; Start 02/24/17 at 21:00 Dextrose/Sodium Chloride (D5-1/2ns) 1,000 ml @ 40 mls/hr Q24H IV Last administered on 02/26/17 03:11; Admin Dose 40 MLS/HR; Start 02/24/17 at 21:00 DAFNE LECHUGA Feb 26, 2017 15:09
--- NOTE | 2017-02-26 15:12 | CONS ---
Date/Time of Note Date/Time of Note DATE: 02/26/17 TIME: 15:11 Assessment/Plan Assessment/Plan Additional Assessment/Plan Additional Assessment/Plan 1. Hyponatremia secondary to liver cirrhosis.persistent NA125 2. Acute kidney injury without heptorenal syndrome, likely secondary to prerenal azotemia in the setting of decompensated liver cirrhosis. 3. 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 History of recurrent ascites, status post last paracentesis done 3 weeks ago , 1.6 liters of fluid was removed. 5. Acute hyperkalemia, possibly secondary to Bactrim. 6. H/o ascites, status post a paracentesis 3 L of fluid was removed 7. Pedal edema 4+ 8. False-positive HIV 9.thrombocytopenia PLAN: - EtOH cessation counseled - [facility] referral for liver transplant evaluation if patient is not an active drinker - continue lactulose and rifaximen for hepatic encephalopathy - continue low dose lasix, titrate as tolerated by kidney function P.o. fluid restriction case management to make arrangement to transfer pt. to tertiary [facility], [facility] if patient does not take the medication orally or too lethargic to take it then we may have to pass the NG tube Consultation Date/Type/Reason Admit Date/Time February 05, 2017 at 18:37 Initial Consult Date 02/06/17 Type of Consultation: cardiology Referring Provider: CARL GRANT MD 24 HR Interval Summary Subjective hx not possible: pt critical Exam/Review of Systems Vital Signs Vitals Vital Signs Date Time Temp Pulse Resp B/P Pulse Ox O2 Delivery O2 Flow Rate FiO2 02/26/17 08:00 96.2 86 20 103/55 97 02/24/17 21:40 Nasal Cannula 2.0 Intake and Output 02/25/17 02/25/17 02/26/17 14:59 22:59 06:59 Intake Total 800.5 ml 520 ml 1000 ml Balance 800.5 ml 520 ml 1000 ml Exam Constitutional: alert, oriented, well developed Psych: nl mood/affect, no complaints Head: atraumatic, normocephalic Eyes: EOMI, PERRL, nl conjunctiva, nl lids, nl sclera ENMT: nl external ears & nose, nl lips & teeth, nl nasal mucosa & septum Neck: non-tender, supple Respiratory: clear to auscultation, normal air movement Cardiovascular: nl pulses, regular rate and rhythm Gastrointestinal: nl liver, spleen, non-tender, soft Musculoskeletal: nl extremities to inspection, nl gait and stance Extremities: normal pulses Neurological: HOSPICE TEAM LEAD II-XII intact, nl mental status, nl speech, nl strength Skin: nl turgor, No rash or lesions Lymph: nl lymph nodes Results Result Diagram: 02/26/17 0440 02/26/17 0440 Results 24 hrs Laboratory Tests Test 02/26/17 04:40 02/26/17 08:02 White Blood Count 14.8 #H Red Blood Count 2.61 L Hemoglobin 8.1 L Hematocrit 22.7 L Mean Corpuscular Volume 87.0 Mean Corpuscular Hemoglobin 31.0 Mean Corpuscular Hemoglobin Concent 35.7 Red Cell Distribution Width 19.0 H Platelet Count 51 L Mean Platelet Volume 12.2 H Neutrophils % 86.9 H Lymphocytes % 5.2 L Monocytes % 6.3 Eosinophils % 0.9 Basophils % 0.1 Nucleated Red Blood Cells % 0.0 Neutrophils # 12.9 H Lymphocytes # 0.8 Monocytes # 0.9 Eosinophils # 0.1 Basophils # 0.0 Nucleated Red Blood Cells # 0.0 Sodium Level 125 L Potassium Level 3.9 Chloride Level 94 L Carbon Dioxide Level 18 L Anion Gap 17 H Blood Urea Nitrogen 104 H Creatinine 3.64 H Glucose Level 118 Calcium Level 9.3 Ammonia 80 H Lab Scanned Report BLOOD TRANSFUSION Medications Medications Current Medications Multivitamins Therapeutic (Theragran) 1 tab DAILY PO Last administered on 11:12; Admin Dose 1 TAB; Start 02/06/17 at 09:00 Thiamine HCl (Vitamin B1) 100 mg DAILY PO Last administered on 02/25/17 11:12; Admin Dose 100 MG; Start 02/06/17 at 09:00 Pantoprazole (Protonix Tab) 40 mg DAILY@06 PO Last administered on 02/25/17 05: 47; Admin Dose 40 MG; Start 02/06/17 at 06:00 Rifaximin (Xifaxan) 550 mg BID PO Last administered on 02/25/17 11:12; Admin Dose 550 MG; Start 02/06/17 at 09:00 Folic Acid (Folic Acid) 1 mg DAILY PO Last administered on 02/25/17 11:12; Admin Dose 1 MG; Start 02/06/17 at 09:00 Aripiprazole (Abilify) 1 mg HS PO Last administered on 02/24/17 21:02; Admin Dose 1 MG; Start 02/06/17 at 21:00 Morphine Sulfate (morphine) 2 mg Q3H PRN IV PAIN Last administered on 02/23/17 01:40; Admin Dose 2 MG; Start 02/06/17 at 01:00 Citric Acid/ Sodium Citrate (Bicitra) 30 ml TID PO Last administered on 11:13; Admin Dose 30 ML; Start 02/06/17 at 21:00 Propranolol HCl (Inderal) 10 mg BID PO ; Start 02/10/17 at 21:00; Status Future Hold Ondansetron HCl (Zofran Inj) 4 mg Q6H PRN IV NAUSEA AND/OR VOMITING Last administered on 02/16/17 18:01; Admin Dose 4 MG; Start 02/12/17 at 09:30 Sodium Chloride (Nacl) 1 gm BID PO Last administered on 02/25/17 11:12; Admin Dose 1 GM; Start 02/16/17 at 21:00 IV Flush 10 ml 10 ml PRN PRN IV IV PROTOCOL; Start 02/18/17 at 16:00 Phytonadione/ Dextrose (Vitamin K/D5W) 50.5 ml @ 101 mls/hr DAILY IVPB Last administered on 02/26/17 11:09; Admin Dose 101 MLS/HR; Start 02/23/17 at 15:30; Stop 02/26/17 at 15:29 Furosemide (Lasix) 20 mg DAILY PO Last administered on 02/25/17 11:12; Admin Dose 20 MG; Start 02/24/17 at 09:00 Lactulose 100 ml 100 ml Q6 [place] Last administered on 02/26/17 06:02; Admin Dose 100 ML; Start 02/24/17 at 18:00 Linezolid 300 ml @ 300 mls/hr Q12 IVPB Last administered on 02/26/17 11:08; Admin Dose 300 MLS/HR; Start 02/24/17 at 18:00 Meropenem 1 gm/ Sodium Chloride 100 ml @ 200 mls/hr Q12 IVPB Last administered on 02/26/17 11:08; Admin Dose 200 MLS/HR; Start 02/24/17 at 21:00 Dextrose/Sodium Chloride (D5-1/2ns) 1,000 ml @ 40 mls/hr Q24H IV Last administered on 02/26/17 03:11; Admin Dose 40 MLS/HR; Start 02/24/17 at 21:00 IGNACIA HERR MD Feb 26, 2017 15:12
[2017-02-26] MEDS ORDERED: FUROSEMIDE 20 MG INJ IV SCH (16:30)
[2017-02-26 18:16] VITALS: BP 100/50; PULSE 88; RESP 18
[2017-02-26] MEDS: FUROSEMIDE 20 MG INJ IV SCH (18:25)
--- NOTE | 2017-02-26 19:31 | PN ---
DATE: 02/26/2017 HEMATOLOGY VISIT SUBJECTIVE: Mr. Blankenship is a 56-year-old, male with a history of cirrhosis of the liver and coagulopathy. The patient has high ammonia levels. He has been very lethargic. He has no obvious bleeding at this time. OBJECTIVE: GENERAL: Shows a moderately built male who is jaundiced. He is very lethargic and difficult to calli use. EARS, NOSE, AND THROAT: Appear unremarkable. HEART: Appear unremarkable, with a regular sinus rhythm. LUNGS: Appear unremarkable. ABDOMEN: 3 to 4+ ascites. EXTERNAL GENITALIA: Scrotal swelling. EXTREMITIES: 1+ edema. SKIN: A few bruises. Other systems unremarkable. LABORATORY DATA: His hemoglobin is 8.1, with MCV 87; WBC 4,800; and platelets 51,000. PT/INR 2.8. PTT 51. Creatinine is 3.4, and bilirubin 12.1. IMPRESSION 1. Liver failure, probably secondary to cirrhosis, with possible hepatic encephalopathy. 2. Pancytopenia, probably secondary to cirrhosis. 3. Coagulopathy, secondary to liver disease. PLAN AND DISCUSSION: This patient has evidence of hepatic encephalopathy. He is very lethargic and is unable to get out of bed. We need to monitor his CBC and also monitor for bleeding and fevers. He is also awaiting placement. Dictated By: SEEMA WATSON/MANJINDER Conf#: [id number] DID#: [id number]
--- NOTE | 2017-02-26 19:32 | CONS ---
Date/Time of Note Date/Time of Note DATE: 02/26/17 TIME: 19:28 Assessment/Plan Assessment/Plan Chief Complaint/Hosp Course - sepsis probably due to skin and soft tissue infection of b/l feet - blisters and devitalized tissue of b/l feet, possible abscess formation of R foot - false positive initial HIV screen (positive by an initial screen, negative by a confirmatory antibody), HIV 1 viral load was undetectable twice, 4th generation HIV Ag/Ab combination test was unreactive. Pt denies a trip to or living in the parts of world endemic for HIV 2. 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 Pt has not received blood transfusions or blood products in the past - Hyponatremia likely secondary to cirrhosis - Acute on chronic anemia requiring blood transfusion - Coagulopathy due to liver disease - Thrombocytopenia - Hyperammonemia - AGATA - Portal hypertension - Cholelithiasis - Recurrent ascites s/p paracentesis ~4 weeks ago with 1.6 L removed, repeat paracentesis on 02/17/2017 s/p 3 L removal - S/p hyperkalemia - H/o alcoholism - H/o substance abuse recommendations: - I swabbed the fluid from devitalized tissue of b/l dorsal feet and sent them for culture. Will review the result - pending results: blood cultures from 02/24/2017 - continue empiric linezolid and meropenem (02/24/2017-) management d/w Pt's RN Problems: Consultation Date/Type/Reason Admit Date/Time February 05, 2017 at 18:37 Initial Consult Date 02/07/17 Type of Consultation: ID Referring Provider: CARL GRANT MD 24 HR Interval Summary Subjective hx not possible: pt non-verbal Exam/Review of Systems Vital Signs Vitals Vital Signs Date Time Temp Pulse Resp B/P Pulse Ox O2 Delivery O2 Flow Rate FiO2 02/26/17 18:16 88 18 100/50 100 Room Air 02/26/17 08:00 96.2 02/24/17 21:40 2.0 Intake and Output 02/25/17 02/25/17 02/26/17 15:00 23:00 07:00 Intake Total 800.5 ml 520 ml 1000 ml Balance 800.5 ml 520 ml 1000 ml Exam Constitutional: frail, non-verbal Psych: confusion Head: atraumatic, normocephalic Eyes: icteric ENMT: other (jaundiced) Respiratory: diminished breath sounds Cardiovascular: nl pulses, regular rate and rhythm Gastrointestinal: distended, soft, No firm, No tender Musculoskeletal: No swelling Extremities: edema, pitting pedal edema Neurological: confused, lethargic Skin: ecchymosis, rash or lesions (blisters, devitalized tissue of b/l dorsal feet) Results Result Diagram: 02/26/17 0440 02/26/17 0440 Results 24 hrs Laboratory Tests Test 02/26/17 04:40 02/26/17 08:02 02/26/17 15:45 White Blood Count 14.8 #H Red Blood Count 2.61 L Hemoglobin 8.1 L Hematocrit 22.7 L Mean Corpuscular Volume 87.0 Mean Corpuscular Hemoglobin 31.0 Mean Corpuscular Hemoglobin Concent 35.7 Red Cell Distribution Width 19.0 H Platelet Count 51 L Mean Platelet Volume 12.2 H Neutrophils % 86.9 H Lymphocytes % 5.2 L Monocytes % 6.3 Eosinophils % 0.9 Basophils % 0.1 Nucleated Red Blood Cells % 0.0 Neutrophils # 12.9 H Lymphocytes # 0.8 Monocytes # 0.9 Eosinophils # 0.1 Basophils # 0.0 Nucleated Red Blood Cells # 0.0 Sodium Level 125 L Potassium Level 3.9 Chloride Level 94 L Carbon Dioxide Level 18 L Anion Gap 17 H Blood Urea Nitrogen 104 H Creatinine 3.64 H Glucose Level 118 Calcium Level 9.3 Ammonia 80 H 100 H Lab Scanned Report BLOOD TRANSFUSION Medications Medications Current Medications Multivitamins Therapeutic (Theragran) 1 tab DAILY PO Last administered on 11:12; Admin Dose 1 TAB; Start 02/06/17 at 09:00 Thiamine HCl (Vitamin B1) 100 mg DAILY PO Last administered on 02/25/17 11:12; Admin Dose 100 MG; Start 02/06/17 at 09:00 Pantoprazole (Protonix Tab) 40 mg DAILY@06 PO Last administered on 02/25/17 05: 47; Admin Dose 40 MG; Start 02/06/17 at 06:00 Rifaximin (Xifaxan) 550 mg BID PO Last administered on 02/25/17 11:12; Admin Dose 550 MG; Start 02/06/17 at 09:00 Folic Acid (Folic Acid) 1 mg DAILY PO Last administered on 02/25/17 11:12; Admin Dose 1 MG; Start 02/06/17 at 09:00 Aripiprazole (Abilify) 1 mg HS PO Last administered on 02/24/17 21:02; Admin Dose 1 MG; Start 02/06/17 at 21:00 Morphine Sulfate (morphine) 2 mg Q3H PRN IV PAIN Last administered on 02/23/17 01:40; Admin Dose 2 MG; Start 02/06/17 at 01:00 Citric Acid/ Sodium Citrate (Bicitra) 30 ml TID PO Last administered on 11:13; Admin Dose 30 ML; Start 02/06/17 at 21:00 Propranolol HCl (Inderal) 10 mg BID PO ; Start 02/10/17 at 21:00; Status Future Hold Ondansetron HCl (Zofran Inj) 4 mg Q6H PRN IV NAUSEA AND/OR VOMITING Last administered on 02/16/17 18:01; Admin Dose 4 MG; Start 02/12/17 at 09:30 Sodium Chloride (Nacl) 1 gm BID PO Last administered on 02/25/17 11:12; Admin Dose 1 GM; Start 02/16/17 at 21:00 IV Flush (NS 10 ml) 10 ml PRN PRN IV IV PROTOCOL; Start 02/18/17 at 16:00 Lactulose 100 ml 100 ml Q6 [place] Last administered on 02/26/17 15:59; Admin Dose 100 ML; Start 02/24/17 at 18:00 Linezolid 300 ml @ 300 mls/hr Q12 IVPB Last administered on 02/26/17 11:08; Admin Dose 300 MLS/HR; Start 02/24/17 at 18:00 Dextrose/Sodium Chloride 1,000 ml @ 40 mls/hr Q24H IV Last administered on 03:11; Admin Dose 40 MLS/HR; Start 02/24/17 at 21:00 Meropenem (Merrem 500 Mg/ 100 ml (Pmx)) 100 ml @ 200 mls/hr Q12 IVPB ; Start at 21:00 Furosemide (Lasix) 10 mg DAILY IV Last administered on 6/10/17at 18:25; Admin Dose 10 MG; Start 02/26/17 at 17:00 AKSHAT MCGRATH M.D. Feb 26, 2017 19:32
[2017-02-26 20:46] VITALS: BP 95/54; PULSE 90; RESP 24
[2017-02-26] MEDS: ARIPIPRAZOLE 2 MG TAB PO SCH (21:00)
[2017-02-26] MEDS: MEROPENEM 500 MG/100 ML (PMX) 100 ML IVPB SCH (21:56)
[2017-02-27] MEDS: LACTULOSE ENEMA 1,000 ML BTL PR SCH ×4 (01:20→17:30)
[2017-02-27 05:09] LABS: ADD SCAN DIFF NO
[2017-02-27 05:11] LABS: ABNORMAL IP MESSAGE 1; HEMATOCRIT 21.7 % (42.0-52.0); HEMOGLOBIN 7.7 g/dl (14.0-18.0); MEAN CORPUSCULAR HGB CONC 35.5 g/dl (32.0-37.0); MEAN CORPUSCULAR VOLUME 87.5 fl (82.0-101.0); MEAN PLATELET VOLUME 12.8 fl (7.4-10.4); PLATELET COUNT 44 10^3/UL (140-415); RED BLOOD COUNT 2.48 10^6/ul (4.70-6.10); RED CELL DISTRIBUTION WIDTH 19.8 % (11.5-14.5); WHITE BLOOD COUNT 11.7 10^3/ul (4.8-10.8)
[2017-02-27 05:20] VITALS: BP 90/55; PULSE 92; RESP 20
[2017-02-27 05:45] LABS: CALCIUM 8.9 mg/dl (8.4-10.2); CREATININE 4.43 mg/dl (0.61-1.24)
[2017-02-27] MEDS: PANTOPRAZOLE (EC) 40 MG TAB PO SCH (06:00)
[2017-02-27 06:06] VITALS: BP 97/50; PULSE 80; RESP 20
[2017-02-27] MEDS: DEXTROSE 5%-0.45% NACL 1,000 ML IV SCH (06:37)
[2017-02-27 07:56] VITALS: BP 89/51; RESP 19
[2017-02-27] MEDS: FUROSEMIDE 20 MG INJ IV SCH (09:24)
[2017-02-27] MEDS: LINEZOLID 600 MG/D5W (PMX) 300 ML IVPB SCH (09:25)
[2017-02-27] MEDS: MEROPENEM 500 MG/100 ML (PMX) 100 ML IVPB SCH (09:25)
[2017-02-27 09:53] LABS: EOSINOPHILS # 0.6 10^3/ul (0.0-0.5); LYMPHOCYTES # 0.2 10^3/ul (0.8-2.9); MONOCYTE # 0.2 10^3/ul (0.3-0.9); NEUTROPHIL # 10.6 10^3/ul (1.6-7.5); PLATELET ESTIMATE PLT APPEAR DECREASED
[2017-02-27] MEDS: MULTIVITAMINS THERAPEUTIC TAB PO SCH (10:00)
[2017-02-27] MEDS: RIFAXIMIN 550 MG TAB PO SCH (10:00)
[2017-02-27] MEDS: CITRIC ACID/SODIUM CITRATE 15 ML CUP PO SCH ×2 (10:00→13:00)
[2017-02-27] MEDS: THIAMINE 100 MG TAB PO SCH (10:00)
[2017-02-27] MEDS: SODIUM CHLORIDE 1 GM TAB PO SCH (10:00)
[2017-02-27] MEDS: FOLIC ACID 1 MG TAB PO SCH (10:00)
--- NOTE | 2017-02-27 11:55 | PN ---
Date/Time of Note Date/Time of Note DATE: 02/27/17 TIME: 11:55 Assessment/Plan VTE Prophylaxis VTE Prophylaxis Intervention: other Lines/Catheters IV [facility] PICC Line Central line still needed: Yes Urinary Cath still in place: No Assessment/Plan Chief Complaint/Hosp Course - Liver cirrhosis. Dr. Zelaya is following in cart in gastroenterology consultation. - Ascites secondary to liver cirrhosis. - Hepatic encephalopathy. Continue lactulose and rifaximin. Monitor ammonia level. - Acute kidney injury, rule out hepatorenal syndrome. Dr. Robles is following in nephrology consultation. - Human immunodeficiency virus positive status. Dr. Ryan is following in infectious disease consultation. - Thrombocytopenia secondary to alcoholic liver cirrhosis and possible human immunodeficiency virus. Dr. Cabral is following in hematology consultation. - Microcytic anemia. Status post transfusion, continue to monitor hemoglobin and hematocrit. - Coagulopathy. - Cholelithiasis. - Hyponatremia Problems: Subjective 24 Hr Interval Summary Free Text/Dictation Patient is comfortable but not responsive to voice or touch Exam/Review of Systems Vital Signs Vitals Vital Signs Date Time Temp Pulse Resp B/P Pulse Ox O2 Delivery O2 Flow Rate FiO2 02/27/17 07:56 97.7 79 19 89/51 97 02/27/17 06:06 Room Air 02/24/17 21:40 2.0 Intake and Output 02/26/17 02/26/17 02/27/17 15:00 23:00 07:00 Intake Total 800 ml 390 ml Balance 800 ml 390 ml Exam Constitutional: well developed Head: atraumatic, normocephalic Neck: supple Respiratory: diminished breath sounds Cardiovascular: regular rate and rhythm Gastrointestinal: non-tender, soft Extremities: normal pulses Results Result Diagram: 02/27/17 0432 02/27/17 0432 Results 24 hrs Laboratory Tests Test 02/26/17 15:45 02/27/17 04:32 Ammonia 100 H White Blood Count 11.7 #H Red Blood Count 2.48 L Hemoglobin 7.7 L Hematocrit 21.7 L Mean Corpuscular Volume 87.5 Mean Corpuscular Hemoglobin 31.0 Mean Corpuscular Hemoglobin Concent 35.5 Red Cell Distribution Width 19.8 H Platelet Count 44 L Mean Platelet Volume 12.8 H Neutrophils % 91.0 H Lymphocytes % 2.0 L Monocytes % 2.0 Eosinophils % 5.0 Neutrophils # 10.6 H Lymphocytes # 0.2 L Monocytes # 0.2 L Eosinophils # 0.6 H Platelet Estimate PLT APPEAR DECREASED Sodium Level 124 L Potassium Level 4.0 Chloride Level 94 L Carbon Dioxide Level 17 L Anion Gap 17 H Blood Urea Nitrogen 112 H Creatinine 4.43 H Glucose Level 116 Calcium Level 8.9 Medications Medications Current Medications Multivitamins Therapeutic (Theragran) 1 tab DAILY PO Last administered on 11:12; Admin Dose 1 TAB; Start 02/06/17 at 09:00 Thiamine HCl (Vitamin B1) 100 mg DAILY PO Last administered on 02/25/17 11:12; Admin Dose 100 MG; Start 02/06/17 at 09:00 Pantoprazole (Protonix Tab) 40 mg DAILY@06 PO Last administered on 02/25/17 05: 47; Admin Dose 40 MG; Start 02/06/17 at 06:00 Rifaximin (Xifaxan) 550 mg BID PO Last administered on 02/25/17 11:12; Admin Dose 550 MG; Start 02/06/17 at 09:00 Folic Acid (Folic Acid) 1 mg DAILY PO Last administered on 02/25/17 11:12; Admin Dose 1 MG; Start 02/06/17 at 09:00 Aripiprazole (Abilify) 1 mg HS PO Last administered on 02/24/17 21:02; Admin Dose 1 MG; Start 02/06/17 at 21:00 Morphine Sulfate (morphine) 2 mg Q3H PRN IV PAIN Last administered on 02/23/17 01:40; Admin Dose 2 MG; Start 02/06/17 at 01:00 Citric Acid/ Sodium Citrate (Bicitra) 30 ml TID PO Last administered on 11:13; Admin Dose 30 ML; Start 02/06/17 at 21:00 Propranolol HCl (Inderal) 10 mg BID PO ; Start 02/10/17 at 21:00; Status Future Hold Ondansetron HCl (Zofran Inj) 4 mg Q6H PRN IV NAUSEA AND/OR VOMITING Last administered on 02/16/17 18:01; Admin Dose 4 MG; Start 02/12/17 at 09:30 Sodium Chloride (Nacl) 1 gm BID PO Last administered on 02/25/17 11:12; Admin Dose 1 GM; Start 02/16/17 at 21:00 IV Flush (NS 10 ml) 10 ml PRN PRN IV IV PROTOCOL; Start 02/18/17 at 16:00 Lactulose 100 ml 100 ml Q6 [place] Last administered on 02/27/17 10:21; Admin Dose 100 ML; Start 02/24/17 at 18:00 Linezolid 300 ml @ 300 mls/hr Q12 IVPB Last administered on 02/27/17 09:25; Admin Dose 300 MLS/HR; Start 02/24/17 at 18:00 Dextrose/Sodium Chloride 1,000 ml @ 40 mls/hr Q24H IV Last administered on 06:37; Admin Dose 40 MLS/HR; Start 02/24/17 at 21:00 Meropenem (Merrem 500 Mg/ 100 ml (Pmx)) 100 ml @ 200 mls/hr Q12 IVPB Last administered on 02/27/17 09:25; Admin Dose 200 MLS/HR; Start 02/26/17 at 21:00 Furosemide (Lasix) 10 mg DAILY IV Last administered on 02/27/17 09:24; Admin Dose 10 MG; Start 02/26/17 at 17:00 TRISH TAMAYO Feb 27, 2017 11:55
--- NOTE | 2017-02-27 12:18 | CONS ---
Date/Time of Note Date/Time of Note DATE: 02/27/17 TIME: 12:15 Assessment/Plan Assessment/Plan Chief Complaint/Hosp Course IMPRESSION: 1. Exertional chest pain, assess for acute coronary syndrome.-negative troponin x 3. EF >65% by echo this admit. CP resolved 2. Dyspnea on exertion, assess for congestive heart failure.-increased BNP,. 3. Abnormal electrocardiogram, assess for acute coronary syndrome.-negative troponin x 3/NL EF by echo >65% this admit 4. Liver cirrhosis. 5. Nausea, vomiting. 6. ETOH abuse. 7. Polysubstance abuse. 8. Human immunodeficiency virus positivity. 9. Renal failure-worsening 10. Hyponatremia. 11. Coagulopathy. 12. Anemia 13. Thrombocytopenia. 14.Hypotension-intermittent/labile 15.Hyponatremia 16.Encephalopathy-worsening REcc: -Continue abx's and f/u cx data -Continue gentle diuresis s/p decrease in lasix dose following NA and BP closely with possible need to hold altogether given ongoing worsening renal function -Continue salt tabs -Holding propranolol given hypotension -Continue PPI -Continue lactulose -Follow coagulopathy -Poor prognosis Problems: Consultation Date/Type/Reason Admit Date/Time February 05, 2017 at 18:37 Initial Consult Date 02/07/17 Type of Consultation: Cardiology Reason for Consultation CHF/CHest pain Referring Provider: CARL GRANT MD Exam/Review of Systems Vital Signs Vitals Vital Signs Date Time Temp Pulse Resp B/P Pulse Ox O2 Delivery O2 Flow Rate FiO2 02/27/17 07:56 97.7 79 19 89/51 97 02/27/17 06:06 Room Air 02/24/17 21:40 2.0 Intake and Output 02/26/17 02/26/17 02/27/17 15:00 23:00 07:00 Intake Total 800 ml 390 ml Balance 800 ml 390 ml Exam Review of Systems: CONSTITUTIONAL: No fevers, chills. PULMONARY: No sob CARDIOVASCULAR: No chest pain/palpitations GASTROINTESTINAL: No nausea/vomiting. GENITOURINARY: No hematuria/dysuria. MUSCULOSKELETAL: No myagias/arthalgias. PSYCHIATRIC: The patient denies depression. NEUROLOGIC: encephalopathic Constitutional: other (encephalopthic) Psych: no complaints Head: normocephalic ENMT: mucosa pink and moist Neck: jvd (9-10 cm water), supple Respiratory: diminished breath sounds (at bases/B) Cardiovascular: regular rate and rhythm Gastrointestinal: non-tender, soft Musculoskeletal: muscle weakness (generalized) Extremities: pitting pedal edema (BIlateral) Neurological: confused, lethargic Results Result Diagram: 02/27/17 0432 02/27/17 0432 Results 24 hrs Laboratory Tests Test 02/26/17 15:45 02/27/17 04:32 Ammonia 100 H White Blood Count 11.7 #H Red Blood Count 2.48 L Hemoglobin 7.7 L Hematocrit 21.7 L Mean Corpuscular Volume 87.5 Mean Corpuscular Hemoglobin 31.0 Mean Corpuscular Hemoglobin Concent 35.5 Red Cell Distribution Width 19.8 H Platelet Count 44 L Mean Platelet Volume 12.8 H Neutrophils % 91.0 H Lymphocytes % 2.0 L Monocytes % 2.0 Eosinophils % 5.0 Neutrophils # 10.6 H Lymphocytes # 0.2 L Monocytes # 0.2 L Eosinophils # 0.6 H Platelet Estimate PLT APPEAR DECREASED Sodium Level 124 L Potassium Level 4.0 Chloride Level 94 L Carbon Dioxide Level 17 L Anion Gap 17 H Blood Urea Nitrogen 112 H Creatinine 4.43 H Glucose Level 116 Calcium Level 8.9 Medications Medications Current Medications Multivitamins Therapeutic (Theragran) 1 tab DAILY PO Last administered on 11:12; Admin Dose 1 TAB; Start 02/06/17 at 09:00 Thiamine HCl (Vitamin B1) 100 mg DAILY PO Last administered on 02/25/17 11:12; Admin Dose 100 MG; Start 02/06/17 at 09:00 Pantoprazole (Protonix Tab) 40 mg DAILY@06 PO Last administered on 02/25/17 05: 47; Admin Dose 40 MG; Start 02/06/17 at 06:00 Rifaximin (Xifaxan) 550 mg BID PO Last administered on 02/25/17 11:12; Admin Dose 550 MG; Start 02/06/17 at 09:00 Folic Acid (Folic Acid) 1 mg DAILY PO Last administered on 02/25/17 11:12; Admin Dose 1 MG; Start 02/06/17 at 09:00 Aripiprazole (Abilify) 1 mg HS PO Last administered on 02/24/17 21:02; Admin Dose 1 MG; Start 02/06/17 at 21:00 Morphine Sulfate (morphine) 2 mg Q3H PRN IV PAIN Last administered on 02/23/17 01:40; Admin Dose 2 MG; Start 02/06/17 at 01:00 Citric Acid/ Sodium Citrate (Bicitra) 30 ml TID PO Last administered on 11:13; Admin Dose 30 ML; Start 02/06/17 at 21:00 Propranolol HCl (Inderal) 10 mg BID PO ; Start 02/10/17 at 21:00; Status Future Hold Ondansetron HCl (Zofran Inj) 4 mg Q6H PRN IV NAUSEA AND/OR VOMITING Last administered on 02/16/17 18:01; Admin Dose 4 MG; Start 02/12/17 at 09:30 Sodium Chloride (Nacl) 1 gm BID PO Last administered on 02/25/17 11:12; Admin Dose 1 GM; Start 02/16/17 at 21:00 IV Flush (NS 10 ml) 10 ml PRN PRN IV IV PROTOCOL; Start 02/18/17 at 16:00 Lactulose 100 ml 100 ml Q6 SC Last administered on 02/27/17 10:21; Admin Dose 100 ML; Start 02/24/17 at 18:00 Linezolid 300 ml @ 300 mls/hr Q12 IVPB Last administered on 02/27/17 09:25; Admin Dose 300 MLS/HR; Start 02/24/17 at 18:00 Dextrose/Sodium Chloride 1,000 ml @ 40 mls/hr Q24H IV Last administered on 06:37; Admin Dose 40 MLS/HR; Start 02/24/17 at 21:00 Meropenem (Merrem 500 Mg/ 100 ml (Pmx)) 100 ml @ 200 mls/hr Q12 IVPB Last administered on 02/27/17 09:25; Admin Dose 200 MLS/HR; Start 02/26/17 at 21:00 Furosemide (Lasix) 10 mg DAILY IV Last administered on 02/27/17 09:24; Admin Dose 10 MG; Start 02/26/17 at 17:00 SHAY COTTRELL 11, 2017 12:18
--- NOTE | 2017-02-27 16:19 | DS ---
Date/Time of Note Date/Time of Note DATE: 02/27/17 TIME: 16:15 Discharge Summary Admission/Discharge Info Admit Date/Time February 05, 2017 at 18:37 Discharge Date/Time 02/27/17 Final Diagnosis 1) alcoholism 2) cirrhosis 3) hepatorenal syndrome Patient Condition: Serious Consults Gastroenterology Nephrology Cardiology Hx of Present Illness This is a 56-year-old male patient who was transferred from [place] with 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 Patient has a history of alcoholic liver cirrhosis, substance abuse, former smoker, alcoholism, hemophilia, apicitis was admitted to [facility] under Dr. James. Patient is admitted with hepatorenal syndrome-nephrology and GI consults are done. We will do the med recon once the medication information is entered. During physical exam patient was standing next to the bed, poor balance and patient was instructed to go back to bed no fall or injury noted. We will get physical evaluation for the patient to be on the safe side patient denies any chest pain, shortness of breath, dizziness, palpitations, headache, fever, chills. Complaint of abdominal pain, nausea, denies any diarrhea. Denies any bleeding from any orifices. During admission patient has hyponatremia, hyperkalemia-we will dose stat labs, IV fluids as necessary. Patient denies any trauma, traveling outside the country, contact with sick. Patient is cooperative for exam. Hospital Course Patient with cirrhosis came in with abdominal pain, nausea and vomiting. Patient was found to have hepatorenal syndrome. Patient was treated medical but he is found to need to have liver transplant and so patient was placed on hold to be transfered to [facility] for further evaluation. Once he is accepted and room found to be available, he will be transferrred . IMPRESSION: 1. Exertional chest pain, assess for acute coronary syndrome.-negative troponin x 3. EF >65% by echo this admit. CP resolved 2. Dyspnea on exertion, assess for congestive heart failure.-increased BNP,. 3. Abnormal electrocardiogram, assess for acute coronary syndrome.-negative troponin x 3/NL EF by echo >65% this admit 4. Liver cirrhosis. 5. Nausea, vomiting. 6. ETOH abuse. 7. Polysubstance abuse. 8. Human immunodeficiency virus positivity. 9. Renal failure-worsening 10. Hyponatremia. 11. Coagulopathy. 12. Anemia 13. Thrombocytopenia. 14.Hypotension-intermittent/labile 15.Hyponatremia 16.Encephalopathy-worsening REcc: -Continue abx's and f/u cx data -Continue gentle diuresis s/p decrease in lasix dose following NA and BP closely with possible need to hold altogether given ongoing worsening renal function -Continue salt tabs -Holding propranolol given hypotension -Continue PPI -Continue lactulose -Follow coagulopathy -Poor prognosis Home Meds Reported Medications Thiamine* (Thiamine*) 100 Mg Tablet, 100 MG PO DAILY, TAB 02/10/17 Lactulose* (Lactulose*) 10 Gm/15 Ml Solution, 10 GM PO Q4 Y for PRN TO ACHIEVE 2 -3 BOWEL MOV, ML 02/10/17 Aripiprazole (Aripiprazole) 1 Mg/1 Ml Solution, 1 MG PO, ML 02/10/17 Pantoprazole* (Pantoprazole*) 40 Mg Tablet.dr, 40 MG PO DAILY, TAB 02/10/17 Sulfamethoxazole/Trimethoprim* (Bactrim Ds* Tablet) 1 Each Tablet, 1 TAB PO BID , TAB 02/10/17 Folic Acid* (Folic Acid*) 1 Mg Tablet, 1 MG PO DAILY, TAB 02/10/17 Furosemide* (Furosemide*) 20 Mg Tablet, 20 MG PO DAILY, #60 TAB 02/10/17 Primary Care Provider Not On Staff Doctor Pending Labs Laboratory Tests Test 02/27/17 04:32 White Blood Count 11.710^3/ul (4.8-10.8) Red Blood Count 2.4810^6/ul (4.70-6.10) Hemoglobin 7.7g/dl (14.0-18.0) Hematocrit 21.7% (42.0-52.0) Mean Corpuscular Volume 87.5fl (82.0-101.0) Mean Corpuscular Hemoglobin 31.0pg (29.0-33.0) Mean Corpuscular Hemoglobin Concent 35.5g/dl (32.0-37.0) Red Cell Distribution Width 19.8% (11.5-14.5) Platelet Count 4410^3/UL (140-415) Mean Platelet Volume 12.8fl (7.4-10.4) Neutrophils % 91.0% (39.0-77.0) Lymphocytes % 2.0% (15.0-51.0) Monocytes % 2.0% (0.0-11.0) Eosinophils % 5.0% (0.0-7.0) Neutrophils # 10.610^3/ul (1.6-7.5) Lymphocytes # 0.210^3/ul (0.8-2.9) Monocytes # 0.210^3/ul (0.3-0.9) Eosinophils # 0.610^3/ul (0.0-0.5) Platelet Estimate PLT APPEAR DECREASED Sodium Level 124mmol/L (135-144) Potassium Level 4.0mmol/L (3.5-5.1) Chloride Level 94mmol/L (97-110) Carbon Dioxide Level 17mmol/L (21-31) Anion Gap 17 (8-16) Blood Urea Nitrogen 112mg/dl (7-20) Creatinine 4.43mg/dl (0.61-1.24) Glucose Level 116mg/dl (70-220) Calcium Level 8.9mg/dl (8.4-10.2) Microbiology Date/Time Source Procedure Growth Status 02/26/17 19:00 Right Foot Gram Stain - Final Resulted 02/26/17 19:00 Right Foot Wound Culture Pending Resulted 02/26/17 19:00 Left Foot Gram Stain - Final Resulted 02/26/17 19:00 Left Foot Wound Culture Pending Resulted TRISH TAMAYO Feb 27, 2017 16:19
--- NOTE | 2017-02-27 16:55 | CONS ---
Date/Time of Note Date/Time of Note DATE: 02/27/17 TIME: 16:29 Assessment/Plan Assessment/Plan Additional Assessment/Plan 1. Anemai- H/H-17.7/21.7- getting blood transfusion, fy CBC am 2. Hyponatremia - 124, likely secondary to decompensated liver cirrhosis. 2. Possible hepatorenal syndrome due to decompensated liver cirrhosis 3. Acute kidney injury, likely secondary to decompensated liver cirrhosis. 4. 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 5. History of recurrent ascites 6. Acute hyperkalemia, possibly secondary to Bactrim.- now resolved PLAN: - pt is not a candidate for Tolvaptan due to elevated LFTs Na 124- on Na chloride tablet to 1 gram PO TID lasix was changed to PO- pt renal function has been gradually deteriorating, BUN 112/4.43 , tertiary [facility] referral for liver transplant evaluation - if he is not liver transplant candidate due to any other reason then he is not a dialysis candidate due to his overall poor prognosis. palliative care consult to discuss goals of care lactulose for high ammonia Bicitra 30ml TID for metabolic acidosis will follow up Hospice evaluation pending Further recommendations depend upon patient's clinical course. Plan of care dw Dr Emily Robles /staff Consultation Date/Type/Reason Admit Date/Time February 05, 2017 at 18:37 Initial Consult Date 02/07/17 Type of Consultation: Cardiology Referring Provider: CARL GRANT MD 24 HR Interval Summary Subjective hx not possible: pt non-verbal Constitutional: requiring IVF Exam/Review of Systems Vital Signs Vitals Vital Signs Date Time Temp Pulse Resp B/P Pulse Ox O2 Delivery O2 Flow Rate FiO2 02/27/17 07:56 97.7 79 19 89/51 97 02/27/17 06:06 Room Air 02/24/17 21:40 2.0 Intake and Output 02/26/17 02/26/17 02/27/17 15:00 23:00 07:00 Intake Total 800 ml 390 ml Balance 800 ml 390 ml Exam Constitutional: non-verbal Respiratory: diminished breath sounds Cardiovascular: nl pulses, regular rate and rhythm Gastrointestinal: ascites, distended, soft Extremities: edema Neurological: lethargic Results Result Diagram: 02/27/17 0432 02/27/17 0432 Results 24 hrs Laboratory Tests Test 02/27/17 04:32 White Blood Count 11.7 #H Red Blood Count 2.48 L Hemoglobin 7.7 L Hematocrit 21.7 L Mean Corpuscular Volume 87.5 Mean Corpuscular Hemoglobin 31.0 Mean Corpuscular Hemoglobin Concent 35.5 Red Cell Distribution Width 19.8 H Platelet Count 44 L Mean Platelet Volume 12.8 H Neutrophils % 91.0 H Lymphocytes % 2.0 L Monocytes % 2.0 Eosinophils % 5.0 Neutrophils # 10.6 H Lymphocytes # 0.2 L Monocytes # 0.2 L Eosinophils # 0.6 H Platelet Estimate PLT APPEAR DECREASED Sodium Level 124 L Potassium Level 4.0 Chloride Level 94 L Carbon Dioxide Level 17 L Anion Gap 17 H Blood Urea Nitrogen 112 H Creatinine 4.43 H Glucose Level 116 Calcium Level 8.9 Medications Medications Current Medications Multivitamins Therapeutic (Theragran) 1 tab DAILY PO Last administered on 11:12; Admin Dose 1 TAB; Start 02/06/17 at 09:00 Thiamine HCl (Vitamin B1) 100 mg DAILY PO Last administered on 02/25/17 11:12; Admin Dose 100 MG; Start 02/06/17 at 09:00 Pantoprazole (Protonix Tab) 40 mg DAILY@06 PO Last administered on 02/25/17 05: 47; Admin Dose 40 MG; Start 02/06/17 at 06:00 Rifaximin (Xifaxan) 550 mg BID PO Last administered on 02/25/17 11:12; Admin Dose 550 MG; Start 02/06/17 at 09:00 Folic Acid (Folic Acid) 1 mg DAILY PO Last administered on 02/25/17 11:12; Admin Dose 1 MG; Start 02/06/17 at 09:00 Aripiprazole (Abilify) 1 mg HS PO Last administered on 02/24/17 21:02; Admin Dose 1 MG; Start 02/06/17 at 21:00 Morphine Sulfate (morphine) 2 mg Q3H PRN IV PAIN Last administered on 02/23/17 01:40; Admin Dose 2 MG; Start 02/06/17 at 01:00 Citric Acid/ Sodium Citrate (Bicitra) 30 ml TID PO Last administered on 11:13; Admin Dose 30 ML; Start 02/06/17 at 21:00 Propranolol HCl (Inderal) 10 mg BID PO ; Start 02/10/17 at 21:00; Status Future Hold Ondansetron HCl (Zofran Inj) 4 mg Q6H PRN IV NAUSEA AND/OR VOMITING Last administered on 02/16/17 18:01; Admin Dose 4 MG; Start 02/12/17 at 09:30 Sodium Chloride (Nacl) 1 gm BID PO Last administered on 02/25/17 11:12; Admin Dose 1 GM; Start 02/16/17 at 21:00 IV Flush (NS 10 ml) 10 ml PRN PRN IV IV PROTOCOL; Start 02/18/17 at 16:00 Lactulose 100 ml 100 ml Q6 OR Last administered on 02/27/17 10:21; Admin Dose 100 ML; Start 02/24/17 at 18:00 Linezolid 300 ml @ 300 mls/hr Q12 IVPB Last administered on 02/27/17 09:25; Admin Dose 300 MLS/HR; Start 02/24/17 at 18:00 Dextrose/Sodium Chloride 1,000 ml @ 40 mls/hr Q24H IV Last administered on 06:37; Admin Dose 40 MLS/HR; Start 02/24/17 at 21:00 Meropenem (Merrem 500 Mg/ 100 ml (Pmx)) 100 ml @ 200 mls/hr Q12 IVPB Last administered on 02/27/17 09:25; Admin Dose 200 MLS/HR; Start 02/26/17 at 21:00 Furosemide (Lasix) 10 mg DAILY IV Last administered on 02/27/17 09:24; Admin Dose 10 MG; Start 02/26/17 at 17:00 DAFNE LECHUGA Feb 27, 2017 16:39
--- NOTE | 2017-02-27 19:15 | CONS ---
Date/Time of Note Date/Time of Note DATE: 02/27/17 TIME: 19:13 Assessment/Plan Assessment/Plan Additional Assessment/Plan Additional Assessment/Plan 1. Hyponatremia secondary to liver cirrhosis.persistent NA125 2. Acute kidney injury without heptorenal syndrome, likely secondary to prerenal azotemia in the setting of decompensated liver cirrhosis. 3. 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 History of recurrent ascites, status post last paracentesis done 3 weeks ago , 1.6 liters of fluid was removed. 5. Acute hyperkalemia, possibly secondary to Bactrim. 6. H/o ascites, status post a paracentesis 3 L of fluid was removed 7. Pedal edema 4+ 8. False-positive HIV 9.thrombocytopenia PLAN: - EtOH cessation counseled - [facility] referral for liver transplant evaluation if patient is not an active drinker - continue lactulose and rifaximen for hepatic encephalopathy - continue low dose lasix, titrate as tolerated by kidney function P.o. fluid restriction case management to make arrangement to transfer pt. to [facility], [facility] if patient does not take the medication orally or too lethargic to take it then we may have to pass the NG tube discontiue diuretics Consultation Date/Type/Reason Admit Date/Time February 05, 2017 at 18:37 Initial Consult Date 02/06/17 Type of Consultation: Cardiology Referring Provider: CARL GRANT MD 24 HR Interval Summary Subjective hx not possible: pt critical Constitutional: disoriented Exam/Review of Systems Vital Signs Vitals Vital Signs Date Time Temp Pulse Resp B/P Pulse Ox O2 Delivery O2 Flow Rate FiO2 02/27/17 07:56 97.7 79 19 89/51 97 02/27/17 06:06 Room Air 02/24/17 21:40 2.0 Intake and Output 02/26/17 02/26/17 02/27/17 15:00 23:00 07:00 Intake Total 800 ml 390 ml Balance 800 ml 390 ml Exam Constitutional: non-verbal Psych: confusion, nl mood/affect, no complaints Head: atraumatic, normocephalic Eyes: EOMI, PERRL, nl conjunctiva, nl lids, nl sclera ENMT: nl external ears & nose, nl lips & teeth, nl nasal mucosa & septum Neck: non-tender, supple Respiratory: clear to auscultation, normal air movement Cardiovascular: nl pulses, regular rate and rhythm Gastrointestinal: nl liver, spleen, non-tender, soft Musculoskeletal: nl extremities to inspection, nl gait and stance Extremities: normal pulses 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, lethargic, nl mental status, nl speech, nl strength Skin: nl turgor, No rash or lesions Lymph: nl lymph nodes Results Result Diagram: 02/27/1743102/27/17 0432 Results 24 hrs Laboratory Tests Test 02/27/17 04:32 White Blood Count 11.7 #H Red Blood Count 2.48 L Hemoglobin 7.7 L Hematocrit 21.7 L Mean Corpuscular Volume 87.5 Mean Corpuscular Hemoglobin 31.0 Mean Corpuscular Hemoglobin Concent 35.5 Red Cell Distribution Width 19.8 H Platelet Count 44 L Mean Platelet Volume 12.8 H Neutrophils % 91.0 H Lymphocytes % 2.0 L Monocytes % 2.0 Eosinophils % 5.0 Neutrophils # 10.6 H Lymphocytes # 0.2 L Monocytes # 0.2 L Eosinophils # 0.6 H Platelet Estimate PLT APPEAR DECREASED Sodium Level 124 L Potassium Level 4.0 Chloride Level 94 L Carbon Dioxide Level 17 L Anion Gap 17 H Blood Urea Nitrogen 112 H Creatinine 4.43 H Glucose Level 116 Calcium Level 8.9 Medications Medications Current Medications Multivitamins Therapeutic (Theragran) 1 tab DAILY PO Last administered on 11:12; Admin Dose 1 TAB; Start 02/06/17 at 09:00 Thiamine HCl (Vitamin B1) 100 mg DAILY PO Last administered on 02/25/17 11:12; Admin Dose 100 MG; Start 02/06/17 at 09:00 Pantoprazole (Protonix Tab) 40 mg DAILY@06 PO Last administered on 02/25/17 05: 47; Admin Dose 40 MG; Start 02/06/17 at 06:00 Rifaximin (Xifaxan) 550 mg BID PO Last administered on 02/25/17 11:12; Admin Dose 550 MG; Start 02/06/17 at 09:00 Folic Acid (Folic Acid) 1 mg DAILY PO Last administered on 02/25/17 11:12; Admin Dose 1 MG; Start 02/06/17 at 09:00 Aripiprazole (Abilify) 1 mg HS PO Last administered on 02/24/17 21:02; Admin Dose 1 MG; Start 02/06/17 at 21:00 Morphine Sulfate (morphine) 2 mg Q3H PRN IV PAIN Last administered on 02/23/17 01:40; Admin Dose 2 MG; Start 02/06/17 at 01:00 Citric Acid/ Sodium Citrate (Bicitra) 30 ml TID PO Last administered on 11:13; Admin Dose 30 ML; Start 02/06/17 at 21:00 Propranolol HCl (Inderal) 10 mg BID PO ; Start 02/10/17 at 21:00; Status Future Hold Ondansetron HCl (Zofran Inj) 4 mg Q6H PRN IV NAUSEA AND/OR VOMITING Last administered on 02/16/17 18:01; Admin Dose 4 MG; Start 02/12/17 at 09:30 Sodium Chloride (Nacl) 1 gm BID PO Last administered on 02/25/17 11:12; Admin Dose 1 GM; Start 02/16/17 at 21:00 IV Flush (NS 10 ml) 10 ml PRN PRN IV IV PROTOCOL; Start 02/18/17 at 16:00 Lactulose 100 ml 100 ml Q6 NC Last administered on 02/27/17 17:30; Admin Dose 100 ML; Start 02/24/17 at 18:00 Linezolid 300 ml @ 300 mls/hr Q12 IVPB Last administered on 02/27/17 09:25; Admin Dose 300 MLS/HR; Start 02/24/17 at 18:00 Dextrose/Sodium Chloride 1,000 ml @ 40 mls/hr Q24H IV Last administered on 06:37; Admin Dose 40 MLS/HR; Start 02/24/17 at 21:00 Meropenem (Merrem 500 Mg/ 100 ml (Pmx)) 100 ml @ 200 mls/hr Q12 IVPB Last administered on 02/27/17 09:25; Admin Dose 200 MLS/HR; Start 02/26/17 at 21:00 Furosemide (Lasix) 10 mg DAILY IV Last administered on 02/27/17 09:24; Admin Dose 10 MG; Start 02/26/17 at 17:00 IGNACIA HERR MD Feb 27, 2017 19:15
--- NOTE | 2017-02-27 19:29 | PN ---
DATE: 02/27/2017 HISTORY OF PRESENT ILLNESS: Mr. Blankenship is a 56-year-old male with a history of cirrhosis o f the liver with coagulopathy. He also has metabolic encephalopathy and has high ammonia level. He has been very lethargic. He has no obvious bleeding. PHYSICAL EXAMINATION: GENERAL: Shows slightly overweight male who is slightly lethargic. He opens his eyes, but is unabl e to answer any questions. VITAL SIGNS: Unremarkable. ENT, HEART, AND LUNGS: Okay except for decreased breath sounds in both bases. ABDOMEN: Shows 3 to 4+ ascites. EXTERNAL GENITALIA: Has scrotal swelling. EXTREMITIES: Showed 1+ edema. CENTRAL NERVOUS SYSTEM: Higher functions, as mentioned above. He is moving all of his extremities. LABORATORY DATA: Hemoglobin today is down to 7.7 and he is getting blood transfusion. Platelet cou nt is stable at 44,000 and his WBC count is 11,700. His PT/INR on 02/24 was 2.8. IMPRESSION: 1. Cirrhosis of the liver with coagulopathy with elevated protime. 2. Metabolic encephalopathy, severe. 3. Pancytopenia. PLAN AND DISCUSSION: This patient has severe metabolic encephalopathy. He is not grossly bleeding, but his hemoglobin is going down and he is getting blood transfusion. His PT/INR was very high, an d fibrinogen was low about a week ago. We will repeat that. We will monitor his CBC and monitor hi m for bleeding and monitor his CBC and CMP. Dictated By: SEEMA GE MD PC/NTS Conf#: [id number] DID#: [id number] CC: CARL GRANT MD;*EndCC*
--- NOTE | 2017-02-27 20:17 | CONS ---
Date/Time of Note Date/Time of Note DATE: 02/27/17 TIME: 20:09 Assessment/Plan Assessment/Plan Chief Complaint/Hosp Course - sepsis probably due to skin and soft tissue infection of b/l feet - blisters and devitalized tissue of b/l feet, possible abscess formation of R foot - false positive initial HIV screen (positive by an initial screen, negative by a confirmatory antibody), HIV 1 viral load was undetectable twice, 4th generation HIV Ag/Ab combination test was unreactive. Pt denies a trip to or living in the parts of world endemic for HIV 2. 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 Pt has not received blood transfusions or blood products in the past - Hyponatremia likely secondary to cirrhosis - Acute on chronic anemia requiring blood transfusion - Coagulopathy due to liver disease - Thrombocytopenia - Hyperammonemia - AGATA - Portal hypertension - Cholelithiasis - Recurrent ascites s/p paracentesis ~4 weeks ago with 1.6 L removed, repeat paracentesis on 02/17/2017 s/p 3 L removal - S/p hyperkalemia - H/o alcoholism - H/o substance abuse - Acute hepatic encephalopathy +/- toxic metabolic recommendations: - pending results: wound cx from b/l dorsal feet (prelim growing GNR) and blood cultures from 02/24/2017 (negative to date) - continue empiric linezolid and meropenem (02/24/2017-) management d/w Pt's RN and Dr. Conley Problems: Consultation Date/Type/Reason Admit Date/Time February 05, 2017 at 18:37 Initial Consult Date 02/07/17 Type of Consultation: Infectious Disease Referring Provider: CARL GRANT MD 24 HR Interval Summary Free Text/Dictation Pt being transferred to tertiary facility ([facility]) for continuation of care. Unable to perform ROS due to encephalopathy. Subjective hx not possible: pt non-verbal Exam/Review of Systems Vital Signs Vitals Vital Signs Date Time Temp Pulse Resp B/P Pulse Ox O2 Delivery O2 Flow Rate FiO2 02/27/17 07:56 97.7 79 19 89/51 97 02/27/17 06:06 Room Air 02/24/17 21:40 2.0 Intake and Output 02/26/17 02/26/17 02/27/17 15:00 23:00 07:00 Intake Total 800 ml 390 ml Balance 800 ml 390 ml Exam Constitutional: frail, non-verbal, other (debilitated), well developed Head: atraumatic, normocephalic Eyes: icteric Neck: other (unable to assess) Respiratory: diminished breath sounds Cardiovascular: regular rate and rhythm, systolic murmur Gastrointestinal: ascites, distended, soft Genitourinary - Male: other (scrotal swelling) Extremities: edema, other (BLE with open blistering areas and large fluid weeping to bilateral feet- dressing saturated with yellowish fluid- see nurse note for details.) Neurological: lethargic, other (attempts to open eyes to verbal commands; no tracking) Skin: other (jaundiced), ecchymosis, rash or lesions (blisters, devitalized tissue of b/l dorsal feet) Results Result Diagram: 02/27/17 0432 02/27/17 0432 Results 24 hrs Laboratory Tests Test 02/27/17 04:32 White Blood Count 11.7 #H Red Blood Count 2.48 L Hemoglobin 7.7 L Hematocrit 21.7 L Mean Corpuscular Volume 87.5 Mean Corpuscular Hemoglobin 31.0 Mean Corpuscular Hemoglobin Concent 35.5 Red Cell Distribution Width 19.8 H Platelet Count 44 L Mean Platelet Volume 12.8 H Neutrophils % 91.0 H Lymphocytes % 2.0 L Monocytes % 2.0 Eosinophils % 5.0 Neutrophils # 10.6 H Lymphocytes # 0.2 L Monocytes # 0.2 L Eosinophils # 0.6 H Platelet Estimate PLT APPEAR DECREASED Sodium Level 124 L Potassium Level 4.0 Chloride Level 94 L Carbon Dioxide Level 17 L Anion Gap 17 H Blood Urea Nitrogen 112 H Creatinine 4.43 H Glucose Level 116 Calcium Level 8.9 Medications Medications Current Medications Multivitamins Therapeutic (Theragran) 1 tab DAILY PO Last administered on 11:12; Admin Dose 1 TAB; Start 02/06/17 at 09:00 Thiamine HCl (Vitamin B1) 100 mg DAILY PO Last administered on 02/25/17 11:12; Admin Dose 100 MG; Start 02/06/17 at 09:00 Pantoprazole (Protonix Tab) 40 mg DAILY@06 PO Last administered on 02/25/17 05: 47; Admin Dose 40 MG; Start 02/06/17 at 06:00 Rifaximin (Xifaxan) 550 mg BID PO Last administered on 02/25/17 11:12; Admin Dose 550 MG; Start 02/06/17 at 09:00 Folic Acid (Folic Acid) 1 mg DAILY PO Last administered on 02/25/17 11:12; Admin Dose 1 MG; Start 02/06/17 at 09:00 Aripiprazole (Abilify) 1 mg HS PO Last administered on 02/24/17 21:02; Admin Dose 1 MG; Start 02/06/17 at 21:00 Morphine Sulfate (morphine) 2 mg Q3H PRN IV PAIN Last administered on 02/23/17 01:40; Admin Dose 2 MG; Start 02/06/17 at 01:00 Citric Acid/ Sodium Citrate (Bicitra) 30 ml TID PO Last administered on 11:13; Admin Dose 30 ML; Start 02/06/17 at 21:00 Propranolol HCl (Inderal) 10 mg BID PO ; Start 02/10/17 at 21:00; Status Future Hold Ondansetron HCl (Zofran Inj) 4 mg Q6H PRN IV NAUSEA AND/OR VOMITING Last administered on 02/16/17 18:01; Admin Dose 4 MG; Start 02/12/17 at 09:30 Sodium Chloride (Nacl) 1 gm BID PO Last administered on 02/25/17 11:12; Admin Dose 1 GM; Start 02/16/17 at 21:00 IV Flush (NS 10 ml) 10 ml PRN PRN IV IV PROTOCOL; Start 02/18/17 at 16:00 Lactulose 100 ml 100 ml Q6 VT Last administered on 02/27/17 17:30; Admin Dose 100 ML; Start 02/24/17 at 18:00 Linezolid 300 ml @ 300 mls/hr Q12 IVPB Last administered on 02/27/17 09:25; Admin Dose 300 MLS/HR; Start 02/24/17 at 18:00 Dextrose/Sodium Chloride 1,000 ml @ 40 mls/hr Q24H IV Last administered on 06:37; Admin Dose 40 MLS/HR; Start 02/24/17 at 21:00 Meropenem (Merrem 500 Mg/ 100 ml (Pmx)) 100 ml @ 200 mls/hr Q12 IVPB Last administered on 02/27/17 09:25; Admin Dose 200 MLS/HR; Start 02/26/17 at 21:00 Furosemide (Lasix) 10 mg DAILY IV Last administered on 02/27/17 09:24; Admin Dose 10 MG; Start 02/26/17 at 17:00 JANKI YOUNGBLOOD NP Feb 27, 2017 20:17
[2017-02-27 20:33] VITALS: BP 90/54; RESP 18
== END 2017-02-27 20:50 | disposition short-term general hospital (02) | DRG 432 ==
LOC: MS4 18:37 → MS1 02-21 10:54 → PP2 02-27 05:43
PROVIDERS: ADMIT Internal Medicine; ATTEND Internal Medicine
PROC: 30233N1 Transfusion of Nonautologous Red Blood Cells into Peripheral Vein, Percutaneous Approach (ICD-10-PCS; 2017-02-07)
PROC: 30233K1 Transfusion of Nonautologous Frozen Plasma into Peripheral Vein, Percutaneous Approach (ICD-10-PCS; 2017-02-14)
PROC: 0W9G3ZZ Drainage of Peritoneal Cavity, Percutaneous Approach (ICD-10-PCS; principal; 2017-02-17)
PROC: 02HV33Z Insertion of Infusion Device into Superior Vena Cava, Percutaneous Approach (ICD-10-PCS; 2017-02-18)
PROC: 30243R1 Transfusion of Nonautologous Platelets into Central Vein, Percutaneous Approach (ICD-10-PCS; 2017-02-23)
DX: K70.31 Alcoholic cirrhosis of liver with ascites (principal); K76.7 Hepatorenal syndrome; K70.40 Alcoholic hepatic failure without coma; N17.9 Acute kidney failure, unspecified; D68.9 Coagulation defect, unspecified; A41.9 Sepsis, unspecified organism; R64 Cachexia; E87.2 Acidosis; K76.6 Portal hypertension; E87.1 Hypo-osmolality and hyponatremia; I50.32 Chronic diastolic (congestive) heart failure; D69.6 Thrombocytopenia, unspecified; K72.90 Hepatic failure, unspecified without coma; E87.5 Hyperkalemia; F10.20 Alcohol dependence, uncomplicated; K80.20 Calculus of gallbladder without cholecystitis without obstruction; D53.9 Nutritional anemia, unspecified; R07.89 Other chest pain; R23.8 Other skin changes; L08.9 Local infection of the skin and subcutaneous tissue, unspecified; F19.10 Other psychoactive substance abuse, uncomplicated
CPT/HCPCS: 36430; 36569; 36600; 71010; 74181; 76705; 76775; 76937; 78226; 80048; 80053; 80061; 80076; 81003; 82105; 82140; 82550; 82553; 82570; 82607; 82728; 82746; 82803; 82962; 83010; 83036; 83090; 83540; 83605; 83615; 83690; 83735; 83880; 83921; 84100; 84145; 84300; 84443; 84484; 84560; 85014; 85018; 85025; 85045; 85049; 85240; 85250; 85335; 85362; 85378; 85384; 85610; 85670; 85730; 86644; 86701; 86703; 86704; 86709; 86803; 86850; 86900; 86901; 86920; 86945; 87040; 87070; 87340; 87536; 89190; 93005; 93306; 93970; 97110; 97116; 97162; 97530; J1940; A9537; J2060; J2185; J2270; J2405; J2543; J3480; J7030; J7040; J7042; P9016; P9035; P9047; P9059